=== PATIENT | male | born 1950 | race Caucasian/White ===

== ENCOUNTER 2023-06-14 14:17 | Outpatient (OUT) | payer MEDICARE, SELFPAY ==
--- NOTE | 2023-06-14 15:12 | CA_ITS ---
Patient: GIANFRANCO LEBLANC Exam Date: 06/14/2023 : 1950 Gender:M Ordering : ENOC DegrootDoroteo [facility] Admission #: [id number] Family : Order #: [id number] CLICK HERE TO VIEW EXAM ECHOCARDIOGRAM REPORT PROCEDURE: CA ECHO DOPPLER COMPLETE INDICATIONS: Dyspnea, smoker, hypertension, diabetes COMPARISON: None. DESCRIPTION: COMPLETE ECHOCARDIOGRAM Real-time transthoracic echocardiography with 2D, M-mode, spectral and color flow Doppler performed. QUALITY: Technical quality was good. LEFT VENTRICLE: Normal chamber size. Thickened septal wall. Normal systolic function. LV EF: Normal left ventricular ejection fraction, (>55%). DIASTOLIC: Normal diastolic function. ATRIAL SEPTUM: Visually appears intact. LEFT ATRIUM: Normal chamber size. RIGHT ATRIUM: Normal chamber size. RIGHT VENTRICLE: Normal chamber size. Normal right ventricular systolic function. TRICUSPID VALVE: Normal mobility and thickness. No stenosis with no regurgitation. MITRAL VALVE: Normal mobility and thickness. No evidence of mitral valve stenosis. There is no mitral annular calcification. No mitral regurgitation. AORTIC VALVE: Normal trileaflet appearance. No visible sclerosis. Normal leaflet mobility. No evidence of aortic valve stenosis. No aortic regurgitation. AORTIC ROOT: Normal diameter and appearance. PULMONIC VALVE: Normal thickness and mobility. No stenosis. Trivial regurgitation. PERICARDIUM: No pericardial effusion. IVC: Collapses with inspirations. IVC is normal in size. PLEURA: CONCLUSION: 1. Normal ventricular function. LVEF is 55 to 60%. 2. No significant valvular dysfunction. 3. No pericardial effusion. Adult Echocardiography Procedure Report Left Ventricle LVEDD (3.7 - 5.6 cm): 4.91 cm LVESD (2.2 - 4.0 cm): 3.13 cm LVIVS thickness (0.6 - 1.2 cm): 1.23 cm LVPW thickness (0.5 - 1.0 cm): 0.90 cm e': 0.10 m/s E - e': 4.69 LVOT Max Gradient: 2.41 mm[Hg] LVOT Area (cm2): 0.78 m/s Peak Velocity (LVOT): 0.78 m/s LVOT Diameter 2.14 cm Left Atrium LA Volume Index (2D A2C): 13.45 ml/m2 Left Atrium Systolic Dimension: 3.81 cm Mitral Valve MV E to A Ratio: 0.62 Mitral Valve A-Wave Peak Velocity: 0.73 m/s Mitral Valve E-Wave Peak Velocity: 0.46 m/s Right Ventricle Aorta AO Root Diam: 3.05 cm Ascending Ao Diam: 3.32 cm Aortic Valve AoV Area (Peak Gil): 2.34 cm2, 2.34 cm2 Peak Velocity(Antegrade Flow): 1.19 m/s Peak Gradient(Antegrade Flow): 5.64 mm[Hg] Tricuspid Valve Pulmonic Valve Peak Velocity: 1.02 m/s Peak Gradient: 4.61 mm[Hg], 3.75 mm[Hg] Right Atrium Right Atrium Systolic Pressure: 38.61 ml, 38.61 ml Dictated by: Lance Mei M.D. on 06/14/2023 at 17:17 Approved by: Lance Mei M.D. on 06/14/2023 at 17:19
== END 2023-06-14 14:18 | disposition home or self-care (01) ==
LOC: CARD 14:19
PROVIDERS: PCP Nurse Practitioner Family; Visit Provider Nurse Practitioner Family
DX: R06.09 Other forms of dyspnea (principal)
CPT/HCPCS: 93306

== ENCOUNTER 2023-07-06 15:05 | Outpatient (OUT) | payer MEDICARE, SELFPAY ==
[2023-07-06 15:38] LABS: Basophils Absolute Auto 0.1 10^3/uL (0.0-0.1); Basophils Percent Auto 0.8 % (0.2-2.0); Eosinophils Absolute Auto 0.1 10^3/uL (0.0-0.7); Hematocrit 43.4 % (42.0-54.0); Hemoglobin 15.3 g/dL (14.0-18.0); Immature Granulocytes Abs Auto 0.02 10^3/uL (0.00-0.03); Immature Granulocytes Pct Auto 0.3 % (0.0-0.5); Lymphocytes Absolute Auto 1.7 10^3/uL (1.2-3.8); Lymphocytes Percent Auto 25.7 % (20.5-60.0); Mean Corpuscular HGB Conc 35.3 g/dL (29.9-35.2); Mean Corpuscular Hemoglobin 33.7 pg (25.9-34.0); Mean Corpuscular Volume 95.6 fL (80.0-94.0); Mean Platelet Volume 8.5 fL (9.5-13.5); Monocytes Absolute Auto 0.6 10^3/uL (0.3-0.8); Monocytes Percent Auto 9.9 % (1.7-12.0); Neutrophils Percent Auto 61.3 % (43.0-75.0); Platelet Count 190 10^3/uL (150-450); Red Blood Count 4.54 10^6/uL (4.70-6.10); Red Cell Distribution Width 12.8 % (11.0-15.0); White Blood Count 6.5 10^3/uL (4.0-11.0)
[2023-07-06 15:54] LABS: Estimated Average Glucose 148 mg/dL; Glycohemoglobin A1C 6.8 % (4.5-6.2)
[2023-07-06 16:07] LABS: Alanine Aminotransferase 14 U/L (16-63); Albumin Level 3.7 g/dL (3.4-5.0); Alkaline Phosphatase 96 U/L (46-116); Anion Gap 9.6; Aspartate Amino Transferase 20 U/L (15-37); BUN Creatinine Ratio 6.8; Bilirubin Total 0.7 mg/dL (0.2-1.0); Calcium 8.7 mg/dL (8.5-10.1); Carbon Dioxide 31.4 mmol/L (21.0-32.0); Chloride 88 mmol/L (98-107); Cholesterol 106 mg/dL (<=200); Estimated GFR (African America >60 (>=60); Estimated GFR (Non-African Ame >60 (>=60); Free T3 2.33 pg/mL (2.18-3.98); Globulin 3.8 g/dL; Glucose 133 mg/dL (74-106); HDL Cholesterol 53 mg/dL (40-60); LDL Cholesterol Calculated 37.4 mg/dL; Sodium 125 mmol/L (136-145); Thyroid Stimulating Hormone 2.699 uIU/mL (0.358-3.740); Total Protein 7.5 g/dL (6.4-8.2); Triglycerides 78 mg/dL (<=150); Uric Acid 5.1 mg/dL (3.5-7.2); VLDL CHOLESTEROL 15.6 mg/dL
[2023-07-06 16:08] LABS: Prostate Specific Antigen Scrn 9.84 ng/mL (<=4.00)
[2023-07-07 11:12] LABS: Insulin 11.2 uIU/mL (2.6-24.9)
== END 2023-07-06 15:06 | disposition home or self-care (01) ==
LOC: LAB 15:08
PROVIDERS: PCP Nurse Practitioner Family; Visit Provider Nurse Practitioner Family
DX: Z79.899 Other long term (current) drug therapy (principal); Z72.4 Inappropriate diet and eating habits; E11.9 Type 2 diabetes mellitus without complications; E78.5 Hyperlipidemia, unspecified; I10 Essential (primary) hypertension; I50.30 Unspecified diastolic (congestive) heart failure; Z12.5 Encounter for screening for malignant neoplasm of prostate; M25.50 Pain in unspecified joint; R53.83 Other fatigue; I11.0 Hypertensive heart disease with heart failure
CPT/HCPCS: 36415; 80053; 80061; 83036; 83525; 83880; 84436; 84443; 84481; 84550; 85025; G0103

== ENCOUNTER 2023-07-12 14:31 | Outpatient (OUT) | payer MEDICARE, SELFPAY ==
[2023-07-12 15:53] LABS: Alanine Aminotransferase 17 U/L (16-63); Albumin Level 3.5 g/dL (3.4-5.0); Alkaline Phosphatase 89 U/L (46-116); Anion Gap 12.2; Aspartate Amino Transferase 14 U/L (15-37); BUN Creatinine Ratio 6.9; Bilirubin Total 0.5 mg/dL (0.2-1.0); Calcium 8.5 mg/dL (8.5-10.1); Carbon Dioxide 29.3 mmol/L (21.0-32.0); Chloride 98 mmol/L (98-107); Estimated GFR (African America >60 (>=60); Estimated GFR (Non-African Ame >60 (>=60); Globulin 3.5 g/dL; Glucose 130 mg/dL (74-106); Potassium 4.5 mmol/L (3.5-5.1); Sodium 135 mmol/L (136-145)
== END 2023-07-12 14:32 | disposition home or self-care (01) ==
LOC: LAB 14:33
PROVIDERS: PCP Nurse Practitioner Family; Visit Provider Nurse Practitioner Family
DX: E87.1 Hypo-osmolality and hyponatremia (principal)
CPT/HCPCS: 36415; 80053

== ENCOUNTER 2023-07-27 09:37 | Outpatient (OUT) | payer MEDICARE, SELFPAY | END 2023-07-27 09:38 | disposition home or self-care (01) | PROVIDERS: PCP Nurse Practitioner Family; Visit Provider Nurse Practitioner Family | DX: R06.02 Shortness of breath (principal); I10 Essential (primary) hypertension | CPT/HCPCS: 78452; A9500 ==

== ENCOUNTER 2023-07-27 11:53 | Emergency (ER) | payer MEDICARE, SELFPAY ==
[2023-07-27 11:58] VITALS: BP 167/86; PULSE 97; RESP 20; TEMP 36.6; O2SAT 95; BMI 32.9
--- NOTE | 2023-07-27 12:06 | XR_ITS ---
[address] [address] Patient Name: GIANFRANCO LEBLANC MRN: [id number] date: 1950 Sex: M Assigned Patient Location: ER Current Patient Location: ER Accession/Order Number: [id number] Exam Date: 07/27/2023 12:20 Report Date: 07/27/2023 12:48 At the request of: LUPILLO KELLY Procedure: XR hip RT min 2V PROCEDURE: XR hip RT min 2V COMPARISON: None. HISTORY: pain FINDINGS: BONES:No acute fracture or dislocation. Moderate osteoarthropathy with joint space narrowing and marginal osteophyte formation. Sclerosis of the acetabulum. SOFT TISSUES:Negative. No visible soft tissue swelling. EFFUSION:None visible. OTHER: Negative. XR/XR hip RT min 2V IMPRESSION: Moderate osteoarthritis Electronically authenticated by: NADJA INMAN Date: 07/27/2023 12:48
--- NOTE | 2023-07-27 13:21 | ED_ITS ---
HPI - Extremity Problem General Chief complaint: Extremity Problem, Nontraumatic Stated complaint: LOWER EXTREMITY PAIN Time Seen by Provider: 07/27/23 12:07 Source: patient Mode of arrival: Wheelchair Limitations: no limitations History of Present Illness HPI Narrative: Patient presenting to us with a right hip pain that been going on at least for few weeks he had mentioned that there was no history of fall or trauma and the pain does not radiate down his legs only limited to his right hip sometimes radiate to the groin area The patient mentioned that he have a history of sciatica before but it is different than this pain No history of weakness numbness tingling or any other complaints Related Data Previous Rx's Medication Instructions Recorded diclofenac sodium 50 mg 50 mg PO Q12H PRN pain 5 days #10 07/27/23 tablet,delayed release tabs Allergies Allergy/AdvReac Type Severity Reaction Status Date / Time Penicillins Allergy Severe Verified 07/27/23 12:04 Review of Systems ROS Status of ROS 10 or more systems reviewed and unremark able except as noted in history and below Exam Narrative Exam Narrative: Nurses notes and vital signs reviewed and patient is not hypoxic. General: Well-appearing and in no apparent distress. Skin: Warm, dry, no pallor noted. No rash. Head: Normocephalic, atraumatic. Neck: Supple, non-tender. Eye: Pupils are equal, round and EOMI. No scleral icterus. Ears, Nose, Mouth, and Throat: TM are clear, no nasal mucosal hypertrophy. Oral mucosa is moist, no posterior oropharynx erythema, uvula is mid-line Cardiovascular: Regular Rate and Rhythm without murmur, gallop or rub. Respiratory: No accessory muscle use or respiratory distress. Lungs are clear to auscultation, no wheezing, rales or rhonchi Chest Wall: no tenderness Back: No midline thoracic or lumbar vertebral tenderness. No CVA tenderness Musculoskeletal: normal ROM, no calf or popliteal tenderness, no lower extremity edema/swelling there is mild tenderness upon palpation of the right lateral aspect of the right hip GI: Abdomen is soft, non-distended. Normal bowel sounds. No masses appreciated. No tenderness to palpation. No rebound, guarding, or rigidity noted. Neurological: A&O x4. No cranial nerve dysfunction observed. No truncal ataxia. Moves all extremities. Sensation intact. Psychiatric: Cooperative and interactive. Normal mood and affect. Constitutional Vital Signs, click to edit/add: Last Vital Signs Temp 97.8 F 07/27/23 11:58 Pulse 97 H 07/27/23 11:58 Resp 20 07/27/23 11:58 BP 167/86 H 07/27/23 11:58 Pulse Ox 95 07/27/23 11:58 O2 Del Method Room Air 07/27/23 11:58 Course Vital Signs Vital signs: Vital Signs Temperature 97.8 F 07/27/23 11:58 Pulse Rate 97 H 07/27/23 11:58 Respiratory Rate 20 07/27/23 11:58 Blood Pressure 167/86 H 07/27/23 11:58 Pulse Oximetry 95 07/27/23 11:58 Oxygen Delivery Method Room Air 07/27/23 11:58 Temperature 97.8 F 07/27/23 11:58 Pulse Rate 97 H 07/27/23 11:58 Respiratory Rate 20 07/27/23 11:58 Blood Pressure 167/86 H 07/27/23 11:58 Pulse Oximetry 95 07/27/23 11:58 Oxygen Delivery Method Room Air 07/27/23 11:58 MDM - Extremity (Nontraumatic) MDM Narrative Medical decision making narrative: The patient was treated in the ER with Toradol discharged home with 5 days of Voltaren and referred to orthopedic in case needed The patient is to follow up with primary care physician in next 2-3 days or to return to the emergency department should any of the signs or symptoms worsen or new symptoms develop. The patient agrees with the following Diagnosis and Treatment plan and the patient will be discharged home. Discharge Plan Discharge Chief Complaint: Extremity Problem, Nontraumatic Clinical Impression: Hip osteoarthritis Patient Disposition: Home, Self-Care Time of Disposition Decision: 13:21 Condition: Good Mode of Transportation: Private Vehicle Prescriptions / Home Meds: New diclofenac sodium 50 mg tablet,delayed release (DR/EC) 50 mg PO Q12H PRN (Reason: pain) 5 Days Qty: 10 0RF Instructions: Osteoarthritis (DC) Stand Alone Forms: Portal Instructions Referrals: ENOC JUDGE [Primary Care Provider] - 1 week Souleymane Garcia MD [Physician] - 1 week
[2023-07-27] MEDS: KETOROLAC TROMETHAMINE 30 MG/ML VIAL 15 MG IM (13:28)
== END 2023-07-27 13:36 | disposition home or self-care (01) ==
PROVIDERS: Emergency Provider Emergency Medicine; PCP Nurse Practitioner Family
DX: R06.02 Shortness of breath (principal); I10 Essential (primary) hypertension; M16.11 Unilateral primary osteoarthritis, right hip
CPT/HCPCS: 73502; 78452; 96372; 99284; A9500

== ENCOUNTER 2023-08-03 12:55 | Outpatient (RCR) | payer MEDICARE, SELFPAY | END 2023-08-04 09:16 | disposition home or self-care (01) | LOC: PT 12:55 | PROVIDERS: PCP Nurse Practitioner Family; Visit Provider Nurse Practitioner Family | DX: M25.551 Pain in right hip (principal) | CPT/HCPCS: 97162 ==

== ENCOUNTER 2023-10-04 13:02 | Outpatient (RCR) | payer MEDICARE, SELFPAY | END 2023-10-28 12:57 | disposition home or self-care (01) | LOC: PT 13:02 | PROVIDERS: PCP Nurse Practitioner Family; Visit Provider Nurse Practitioner Family | DX: M25.551 Pain in right hip (principal) | CPT/HCPCS: 97010; 97110; 97113; 97140; 97162; G0283 ==

== ENCOUNTER 2023-10-04 15:14 | Outpatient (OUT) | payer MEDICARE, SELFPAY ==
--- OUTSIDE RECORDS SUMMARY | 2023-10-04 15:39 | XMS_ITS | CCD ---
Author Name Unknown Address [address] [place] [address] Organization [facility] Care Team Providers Care Director Payment Name Role Phone Raul Sun MD Primary Care Provider DAINA JUDGE Primary Care Physician [phone] MD Kashif Sanches Attending Provider AMMY Judge Primary Care Provider Daina Judge Primary Care Unavailable Kashif Sanches Attending Unavailable Kashif Sanches Admitting Unavailable SELENA ., DR RHOADES Admitting Unavailable SANCHES ., DR RHOADES Attending Unavailable ALFIE DAINA Primary Care Unavailable SANCHES ., DR RHOADES Consulting Unavailable DAINA JUDGE Admitting Unavailable DAINA JUDGE Attending Unavailable ALFIE, DAINA Primary Care Unavailable ALFIE DAINA Consulting Unavailable ALFIE, DAINA Admitting Unavailable ALFIE, DAINA Attending Unavailable ALFIE, DAINA Primary Care Unavailable DAINA JUDGE Consulting Unavailable Kashif SANCHES Attending Unavailable Kashif SANCHES Attending Unavailable DAINA JUDGE S Referring Unavailable Kashif SANCHES Attending Unavailable Kashif SANCHES Admitting Unavailable Raul Sun MD Primary Care Provider RAUL SUN Primary Care Unavailable KENYON ANGEL Attending Unavailable MARQUIS WEAVER Attending Unavaila ble RAUL SUN Primary Care Unavailable RADHA GRAY Referring Unavailable RADHA GRAY Attending Unavailable RAUL SUN Primary Care Unavailable MONTSERRAT HA Attending Unavailable FABRIZIO MACIAS Attending Unavailable Allergies Allergy Classification Reported Allergen(s) Allergy Type Date of Onset Reaction(s) Facility (8 sources) Penicillins; Translations: [PENICILLINS] Drug Allergy 7 Rash [facility] (5 sources) Penicillin; Translations: [penicillin] Drug Allergy 2 Unknown skin reaction [facility] (1 source) Penicillins Drug allergy (disorder) 2 [facility] Medications Current Medications Medication Drug Class(es) Dates Sig (Normalized) Sig (Original) benoxinate hydrochloride 4 mg/ml / fluorescein sodium 2.5 mg/ml ophthalmic solution (4 sources) Diagnostic Dye Start: 06-06-2023 End: 06-07-2023 fluorescein-benoxi irma 0.25-0.4 % 1 Drop (FLURESS) Start: 03-02-2023 End: 03-03-2023 fluorescein-benoxinate 0.25- 0.4 % 1 Drop (FLURESS) Start: 03-01-2022 End: 03-02-2022 fluorescein-benoxinate 0.25- 0.4 % 1 Drop (FLURESS) Start: 02-17-2022 End: 02-18-2022 fluorescein-benoxinate 0.25- 0.4 % 1 Drop (FLURESS) hydroCHLOROthiazide 12.5 mg / losartan potassium 50 mg oral tablet (9 sources) Thiazide Diuretic, Angiotensin 2 Receptor Rosie Start: 06-28-2022 hydrochlorothiazide-losartan 12.5 mg-50 mg Tab Refill(s) 0 Start Date: 06/28/22 Status: Ordered Start: 11-02-2018 losartan-hydro chlorothiazide (HYZAAR) 50-12.5 mg per tablet loratadine 10 mg oral tablet (9 sources) Start: 06-28-2022 take 3 tablets by mouth once daily loratadine 10 mg Tab Oral route, 3 Refill(s), 1 tablet by mouth once a day, Refills(s) 0 Start Date: 06/28/22 Status: Ordered take 1 tablet by mouth once jayde y loratadine (CLARITIN) 10 mg tablet Take 10 mg by mouth once daily. 0 Active Comment on above: Take 10 mg by mouth once daily. phenylephrine hydrochloride 25 mg/ml ophthalmic solution (3 sources) alpha-1 Adrenergic Agonist Start: 06-06-2023 End: 06-07-2023 PHENYLephrine 2.5 % 1 Drop (AK-DILATE, AINSLEY-SYNEPHRINE) Start: 03-02-2023 End: 03-03-2023 PHENYLephrine 2.5 % 1 Drop ( AK-DILATE, AINSLEY-SYNEPHRINE) Start: 03-01-2022 End: 03-02-2022 PHENYLephrine 2.5 % 1 Drop ( AK-DILATE, AINSLEY-SYNEPHRINE) traZODone hydrochloride 150 mg oral tablet (9 sources) Serotonin Reuptake Inhibitor Start: 06-28-2022 traZODONE 150 mg Tab Refills(s) 0 Start Date: 06/28/22 Status: Ordered Comment on above: Take 150 mg by mouth daily at bedtime. tropicamide 10 mg/ml ophthalmic solution (4 sources) Anticholinergic Start: 06-06-2023 End: 06-07-2023 tropicamide 1 % 1 Drop (MYDRIACYL) Start: 03-02-2023 End: 03-03-2023 tropicamide 1 % 1 Drop (MYDR IACYL) Start: 03-01-2022 End: 03-02-2022 tropicamide 1 % 1 Drop (MYDR IACYL) Start: 02-17-2022 End: 02-18-2022 tropicamide 1 % 1 Drop (MYDR IACYL) Completed/Discontinued Medications Medication Drug Class(es) Dates Sig (Normalized) Sig (Original) [id number] 200 actuat albuterol 0.09 mg/actuat metered dose inhaler (1 source) beta2-Adrenergic Agonist Start: 04-17-2023 albuterol HFA (PROVENTIL HFA, VENTOLIN HFA) 90 mcg/actuation inhaler amLODIPine 5 mg oral tablet (9 sources) Dihydropyridine Calcium Channel Rosie Start: 01-14-2021 take 1 tablet by mouth once daily amLODIPine (NORVASC) 5 mg tablet Take 5 mg by mouth once daily. 0 01/14/2021 Active Comment on above: Take 5 mg by mouth o nce daily. atenolol 50 mg oral tablet (9 sources) beta-Adrenergic Rosie Start: 11-02-2018 atenolol (TENORMIN) 50 mg tablet atorvastatin 10 mg oral tablet (9 sources) HMG-CoA Reductase Inhibitor Start: 02-01-2022 atorvastatin (LIPITOR) 10 mg tablet busPIRone hydrochloride 5 mg oral tablet (9 sources) Start: 11-02-2018 busPIRone (BUSPAR) 5 mg tablet cholecalciferol 0.05 mg oral capsule (6 sources) Vitamin D Cholecalciferol, Vitamin D3, 50 mcg (2,000 unit) cap Take by mouth. 0 Active Cholecalciferol, Vitamin D3, (VITAMIN D-3) 2,000 unit cap Take by mouth. 0 Active Comment on above: Take by mouth. doxycycline hyclate 50 mg oral capsule (6 sources) Tetracycline-class Drug Start: 2 take 1 capsule by mouth once daily doxycycline (VIBRAMYCIN) 50 mg capsule Take 50 mg by mouth once daily. 0 01/25/2022 Active Comment on above: Take 50 mg by mouth once daily. FLUoxetine 40 mg oral capsule (6 sources) Serotonin Reuptake Inhibitor take 1 capsule by mouth once daily FLUoxetine HCl (PROZAC) 40 mg capsule Take 40 mg by mouth once daily. 0 Active Comment on above: Take 40 mg by mouth once daily. furosemide 20 mg oral tablet (9 sources) Loop Diuretic Start: 9 furosemide (LASIX) 20 mg tablet metFORMIN hydrochloride 500 mg oral tablet (9 sources) Biguanide Start: 9 metFORMIN (GLUCOPHAGE) 500 mg tablet Minocycline (6 sources) Tetracycline-class Drug MINOCYCLINE HCL (MINOCYCLINE ORAL) Take by mouth. 0 Active Comment on above: Take by mouth. naltrexone hydrochloride 50 mg oral tablet (6 sources) Opioid Antagonist Start: 9 naltrexone (TREXAN) 50 mg tablet Problems Active Problems Problem Classification Problem Date Documented Date Episodic/Chronic Anxiety disorders (3 sources) Anxiety disorder 08-08-2019 Chronic Cataract (20 sources) Nuclear senile cataract; Translations: [Age-related nuclear cataract, right eye] Onset: 11-10-2016 Chronic Diabetes mellitus without complication (18 sources) Diabetes mellitus type 2 without retinopathy; Translations: [Type 2 diabetes mellitus without complications] Onset: 02-11-2021 Chronic Disorders of lipid metabolism (1 source) Hyperlipidemia, unspecified; Translations: [HYPERLIPIDEMIA UNSPECIFIED] Onset: 05-24-2022 Chronic Essential hypertension (3 sources) Hypertensive disorder 08-08-2019 Chronic Hyperplasia of prostate (5 sources) Benign prostatic hypertrophy with outflow obstruction; Translations: [Benign prostatic hyperplasia with lower urinary tract symptoms] Onset: 06-28-2022 Chronic Mood disorders (3 sources) Depressive disorder 08-08-2019 Chronic Other eye disorders (6 sources) Chorioretinal scar of left eye; Translations: [Unspecified chorioretinal scars, left eye] Onset: 11-10-2016 11-10-2016 Chronic Other eye disorders (1 source) History of gzkamcy-ioaxbcsh-coz net (YAG) laser capsulotomy of lens; Translations: [Cataract extraction status, left eye] 06-06-2023 Episodic Other lower respiratory disease (2 sources) Other forms of dyspnea; Translations: [Other forms of dyspnea] Onset: 09-21-2023 Episodic Other nervous system disorders (10 sources) H/O: retinal detachment; Translations: [Personal history of other diseases of the nervous system and sense organs] Onset: 11-10-2016 Episodic Other screening for suspected conditions (not mental disorders or infectious disease) (11 sources) Raised prostate specific antigen; Translations: [Elevated prostate specific antigen [PSA]] Onset: 05-24-2022 Episodic Residual codes; unclassified (2 sources) Localized edema; Translations: [Localized edema] Onset: 09-21-2023 Episodic Retinal detachments; defects; vascular occlusion; and retinopathy (10 sources) Epiretinal membrane of left eye; Translations: [Puckering of macula, left eye] Onset: 11-10-2016 Chronic Unclassified (1 source) OPENED IN ERROR 03-03-2023 Past or Other Problems Problem Classification Problem Date Documented Date Episodic/Chronic Diabetes mellitus without complication (1 source) Other abnormal glucose; Translations: [OTHER ABNORMAL GLUCOSE] Onset: 05-24-2022 Episodic Inflammation; infection of eye (except that caused by tuberculosis or sexually transmitteddisease) (6 sources) Blepharitis of upper and lower eyelids of bilateral eyes; Translations: [Unspecified blepharitis right eye, upper and lower eyelids] Onset: 11-10-2016 11-10-2016 Episodic Other eye disorders (5 sources) Excess skin of eyelid; Translations: [Dermatochalasis of right upper eyelid] Onset: 11-10-2016 11-10-2016 Episodic Other eye disorders (2 sources) Dermatochalasis of right upper eyelid; Translations: [Dermatochalasis] Onset: 11-10-2016 11-10-2016 Episodic Results Test Name Value Interpretation Reference Range Facility 37on 09-21-2023 37 Stop amlodipine- and start spironlactone- 1 tab daily. Have blood work drawn about 1 week after starting this new med to check kidney function and electrolytes. Call office for any concerns Normal [facility] Office Visiton 09-21-2023 Follow-up visit [id number] Gianfranco Martin 1950 M Date Provider Department Center 09/21/2023 120-MONTSERRAT HA [facility] Family History Problem Relation Age of Onset Coronary artery disease Father Stroke Father Family Status - Relation Status Age at Father Level of Service:42815 ME OFFICE/OUTPATIENT ESTABLISHED MOD MDM 30 MIN Normal [facility] Office Visiton 08-26-2023 Follow-up visit [id number] Gianfranco Martin 1950 M Date Provider Department Center 08/26/2023 3848-FABRIZIO MACIAS Hos Family History Problem Relation Age of Onset Coronary artery disease Father Stroke Father Family Status - Relation Status Age at Father Level of Service:18821 ME OFFICE/OUTPATIENT NEW LOW MDM 30 MINUTES Normal [facility] Patient Letter FTon 2022 Patient Letter [facility] – [place] November 30, 2022 GIANFRANCO MARTIN [address] [place] [address] GIANFRANCO MARTIN 1950 Dear Gianfranco Martin, [facility] has been trying to reach you concerning the recent results of your PSA level done 10/26/22 9.32. Your PSA level is elevated and Dr. Sanches is recommending you have a Prostate biopsy done under anesthesia to rule out prostate cancer. A normal PSA level is 0- 4. The office has left several messages with no response from you concerning this matter. Please call the office with in 2 week of receipt of this letter to get this outpatient procedure scheduled. Sincerely, Kashif Sanches M.D., F.A.C.S. [facility] [address] [place], [place] [id number] , OPTION #3 SENT REGULAR/CERTIFIED MAIL [facility] Coding Summary.on 10-27-2022 Coding Summary. CD:[id number] Gh 0bWw+PGhlYWQ+VE3CEDGnS 14kdEZobN3lA3WMVJrIQlf oTUKGUQxFIqDjdwJlUM3jc XNjZXJu IC8+WZ3tQFGwYvdazYIon2 T2oVM0H75gib1oZPrcsLA6 VANkPbCghlnja9zxbWu1VJ cuNmluOyBt ZHSlpW75HSB6oF83Et87iJ DqtLGzd4glwLz0BaYuNBMk FTP2lYvqVVnzg3QzONJuP7 8jmIMso9T2 CZRhsUjgdLOpWvMmfAZ7bU 6hUObikpmpx3laudkaZdm6 kv37eGXxs4K3iFB1B8Mkpq G4GDQhbJKu QxkjdFBIgO7hntfyj7iiay evMgChTPAyQZh9QOt9URTs dOsdTxCkNK73YZN6EHIygs AjU4JcYFJq eEcmDaE6j0V2Da7YY2OTMy umS3XNOHRYVNxozEA+PC90 jf23G9KsIteoUxp3EXXoRR X5fAY8lM2e GKPmHImqq5W9hQC5J5Wtno Uqoc4mv9hfKLVdWYxeX07d qCTxa0M5GSVmaUG3RGZwwN qzYpWgjO69 Oyc+KUVckOlkg1AoUyadj6 uqu9acnTw9RmayDLOttiFi vMnkROT5p8LgLi1tYKRphC N6hEW1kS8u WeMhFrL1OMibF355EcMmkV XyJcnqI93fW5XnsLH+PHRy Zrz7VEEhoOenWT2qH8DvGT RpbmctbGVm dGifHS0rTKZxkejiTANjjY 9tBQMkX5a3TkHuMsJ3IVdg A7ShAOLwdzyxYx09jB5eLw KrLzI2QGgm B6JhujK6GYTyiUOnGQnvOO O8Z03zi5B0KHGaJYXgPNZ1 qWP0vB2mfOhjdtxqgEAxuD sgdmVydGlj WSokXMdeM424WCQnuSwqBd NvZGluZyBEYXRlOiAgMDMv MDgvMjAyMzwvdGQ+PHRkIH L6jYinCKWt xLHaYHsqWw1ykVsnmDkmOK 3cTLVukrssKDZwxS5aTJUj xSDuyEsmDS7qJNAjnoqaa9 47PiNdMDM0 GGPgwEYcZ0UzbM4mSvGaTJ XtRJXjE6JbdRLqYAzaF201 RLopCvY9NMCygtUdG7VdYA FsaWduOiB0 y7L0Fg1Sa7NgnxwtY5SqeS DmNqQoJskePXt6A2JfZzlx dHI+MB16DYOhFB05BLh2MJ C1jDnwXLkv HRTbS2GioE1pYxUnYLUfAH RkOyc+PHRhYmxlIHdpZHRo JFsbDCZuReUtlTxgAU6kVp 9yZGVyLWNv tVahmJWfWqRrq3zdSKDhMW nrIQ8fiOojA2UnxRU0RUEo o0e1Aq47X01sT8BxyKX+PG PxcGR1gZV5 yV6iXtZiLxB0MLdqD899Oi DhzBDcZvbcn0nrb1tezMz0 IsH6VRPscpDfkSbgFQL2q7 DtBr81J94o IHdpZHRoPSIxNSUiIHZhbG ibpe5toR7lEs2+PGNvbCB3 oSX7nP2hUlDvLmK0IQafO1 49InRvcCIv Ylgnd6pys4iluAh5FoTrRQ MoqjZpgWyuHIB9w4NhTs91 O0YzxZyzn4FnTsw7rt16hC Tqw9R6uKS9 S9KfTHEjcpusgUKqxVisTE 7aIYCkhodeTBYxiS2eFGPa F2u0JhNjRiN5ZLpuN7Wbwq N9MIDiiLXe RMEyoSEIhA0mhwodo8yoao vtMcKnIXFmPPv3YEi0UBXz qYtwObIyGJH8RlR5GHI7sF PzzR3qlDet uvdclI5sLyi+EGD8iOVcnA FJFB3fHepuxRV+PHRkIHN0 kPavPKmcUUCywM0lPVNiZ7 e6EiEqOgU7 VKrbC7SoreB4BNIrnWLuNU YfeWLQuB3ltpbgn8giyeqc ZlOpYCWuHSb8OOx0BRYuhF duOiBsZWZ0 PzW0CJN9eZDnsN1mjFefwg bmkJ9zUwj+QmlydGggRGF0 CFj7T4YsCpn5OUMsyTyaTT 0ncGFkZGlu Cj5ngCemtIqfDM3dTXKcow ujd502BiNnp4dxIJSsvLTh RCatTLE5H13to1N2WVRfIT KxITX9yBJ4 wT9hoBtrlwanlFEznNtyzl ZodAlnTUipJZmqZ592SZNo nUtwKsNnXNx1O5VtNss8BH UrwLqjXD2s aLObXCmcUw2kwYizfBypQU 2sGQZtvuzdv626GmFtt4nd EPVbnWNxYGntWSR5V20es8 W2HRTtGEHq HUZ1sEN2vM1dnXxvtujgqT VmdDsgdmVydGljYWwtYWxp J185UVKteLauDzIazUc8M8 AuXxk1TJCw bJbjKI9rtMTpBStkAl6xqV uszSidZQ2xPTHhvwsad136 TyPkp9kuVLBqvXIcRGkuUN I2C92ka6X7 TTZyARTvPUJ1dLW4eA9knL lnbjogbGVmdDsgdmVydGlj WFdyOYamP407VJIumPtjGn BhdGllbnQg CEfbRMf5O2UbCekseOR+PC 25RNZzTS40xKEumUKkz3ro tEs9OcZkACOdDXG7uDyrCV wef2VhVFPi O35axAQav6Z1JYDnvWurpD OuUzSmaLH9tT7qNTnhgopc b9wwjmoiRbwgc2zsgg75lP 25Y64dLFsy ZHRoPSIzMCUiIHZhbGlnbj 7nnX5kDw8+JTIeuEP0xUD7 yG9xEACaQnH1XInyF676Lw RvcCIvPjxj g0qji0wtsVu8SyJ7VOWjrg TdcUcqCSJ3z6GdAr03A65e IHdpZHRoPSIyMCUiIHZhbG dpem5hdF6c Ii8+SYNwfVE2aEU0zY3nCk OtIlF8JGnpJ634NqSinISx QycjV54pV2XeeAV+PHRyPj x7SQQqzSjc AT0dnKHxECfhKp6tSSE6Nv FzLfIpHGfrU4JuBFWrcwpr dbbgtQW6HCKuPBZnwL33Fb 9udDogMTBw wTGZtQ8uxcvqq2sccfjcQb VnKRAdOAs7CJv5MUSqxQul DkXwXZN3OiP7CRL5aMRbeM 1hbGlnbjog kI5lS8HvGXGgyrazQg96kF 1yGjCeNwM9RXhoXbf+UFVM FADBJpjuMkfYH3gRRcabqA Q+PHRkIHN0 rMqbKZodZKMsjY5sLXKzK8 w0IpLrLhC8MPykN2LiYBHp batuRw53pF3vLiHuYwI5YX xsC6EaufS2 MNAhdUAyPUxlKHV0E56zp2 G7GREwFEWtZOA2cPZ5tA6m bGlnbjogbGVmdDsgdmVydG ljYWwtYWxp B354WTKvpEjvLsC2ItE1Ce D9JSX0U7YsMsu5GQTptNhf CU8dpTJqIYfuDk1hxDzrcT ipWE8eQSPd lfhvOVJxlA3xBWMpkMUdmN zfXH2nHZCpvzdrl998YaOi ZHL5EBGevDMmH7OxbU2eAd AjMDAwMDAw J5SdyNKcJHkrK433PJitOl L0EQNkphFmO5JiYCBatZcd SpS2s4A0Eo11GuZJYVYwez wvdGQ+PHRk CZO4nUnqSKilQWObcN1eJT JuY7m2MbKhBrP8PZxhN2Kt YMCxhrrgFq79mC2kAwRfVy C9PElnS8Xn gcY5ZCAleHCmHPxqZZP8H2 0wo6U6CAVgGVSjMTO7vZB8 cC8epBrbebjceLVivYxpnl VydGljYWwt LRirN900FHIkrJiqGi3myA S6T6VtFzr4UQUmjFacZH1o mDBrEGroAs9jiPjwsLfqAV 4wNTBpbjtw QTNrqM8xKXEkzDEljMtnZV 3gLTJmpwira683XtGvZWR7 AASwlKLzZ1PylA9hTbUqHC WxURYaS6Us cSQqFWqgM934BQwqBsC1XG OjqzBtV6DtTRKgyCsiHjL6 j6B2Fr0USHItPHUorGVhBq L5C8TtMwca dHI+KK68OPViCK05bDQakP Qop3qekTr5VxMdXWKbCBB8 pUlaBEtcx3YbLJSvZ75qdL Lwg9I8KSAp aLzzbJErUuWrtPI0rZ0cYW lptlbgn8qmuxbfCxjwk1uk lh73wJ34I78aNQprECTcLC IzMCUiIHZh eAdpxs8wnK7rJr3+PGNvbC X6vWV7wA0mFeDuDtO9LDgm C061FxBqvVOhSjgdj7umc9 okeTg0QxXf JTJihfFjfXppZKZ1x4EaAw 47D16fEZynYWVgBFEpDFSe KVFnbPtelm9iaB7aPq6+PC 3ob0rkye49 yK42vIT+AJIaGFB9jQcuSD vrAEWkeM0nBTneQtG2HPGw JkQdeJ86fXCjQJkcSj3kdC kdvDjlNI2a ICUzfcotn484EoSvu4bbZD DueLMfQAdfGXW7T35cl3T4 IUUkXGQqOWO0kLU5hQ3ydY lnbjogbGVm dDsgdmVydGljYWwtYWxpZ2 46QEExnShsBgRciGSrV6qv ulBHHD6mEurdsGC+PHRkIH F3qGgmBHdr THMmfX5sZLOaB3p1FuIbSq M9QPfmR1SxraG1NGIziZKd HFZupLVRhU1jtzibi5pcog ogIzAwMDAw TIm1FYz2EEUqoUxjEeXjYG X3NaJ4TYZ7lCDecV0gsCke rbuzcI2kAhc+RklOOjwvdG Q+PHRkIHN0 hNyeJHtmNCGbpS2tMCXgL4 i8WxElOkZ7PEqvS2CxusD2 IIEzaSLyIAYwqPJWfA8tjy lnc1dcixdn TgCqIPTtQUs1SZi2LFJgnI vuYtGrALB4XnC4MDU3fSVy nS3giKbbxgfowL0pJia+TV JOOjwvdGQ+ AECiJXJ2yEoyNFrhPOHzcD 9gEPZsS4r9KpHcByF5UQkm A4LgpnC1FLMrrGHtVKTujB NQmG6tyicy e4tohzwbJpOjBUAwZAq0JZ k0YICvrEqnQcXtJQM3JqF2 PKN1jCPddZ2hbUpyiwbezA 9wOyc+UGF5 NVF6LX38AR46Y4FwNeephT FibGU+PHRhYmxlIHdpZHRo QRogTKVuCoFbqBnyQO3aZv 9yZGVyLWNv bGxh (more content not included)... Normal [facility] Lab Reportson 10-27-2022 Lab Reports [id number]:[id number] Normal [facility] Ambulatory Visit Summaryon 0 10-15-2022 Ambulatory Visit Summary GIANFRANCO MARTIN :1950 Visit Date:10/15/2022 Ambulatory Visit Instructions Your Diagnosis Elevated PSA Benign prostatic hyperplasia (BPH) with post-void dribbling Tests Performed Urnls Dip Stick Auto w/o Microscopy POC 86393 Your Care Team Attending Physician - SELENA LEONG, Kashif Reis Primary Care Physician - DAINA JUDGE CNP This Is Your Medications List Contact prescribing physician if questions or concerns amlodipine (amLODIPine 5 mg Tab) atenolol (atenolol 50 mg Tab) atorvastatin (atorvastatin 10 mg Tab) busPIRone (busPIRone 5 mg Tab) furosemide (furosemide 20 mg Tab) hydrochlorothiazide-lo sartan (hydrochlorothiazide-l osartan 12.5 mg-50 mg Tab) loratadine (loratadine 10 mg Tab) metformin (metformin 500 mg oral tablet) trazodone (traZODONE 150 mg Tab) Procedures Performed Transrectal biopsy of prostate using ultrasound (US) guidance (2019), Eye implant, Repair of incisional hernia. Discharge Vitals Heart Rate (Peripheral) 86 Blood Pressure 128/79 Height 176 cm Height 69 in Weight 98 kg Weight 215.6 lb BMI 31.64 What to do next You Need to Schedule the Following Appointments Follow Up with SELENA LEONG, STEFANI Seo When: Where: [address] [place] [address]- Medications What When Instructions Unchanged amlodipine (amLODIPine 5 mg Tab) Contact prescribing physician if questions or concerns Unchanged atenolol (atenolol 50 mg Tab) Contact prescribing physician if questions or concerns Unchanged atorvastatin (atorvastatin 10 mg Tab) Contact prescribing physician if questions or concerns Unchanged busPIRone (busPIRone 5 mg Tab) Contact prescribing physician if questions or concerns Unchanged furosemide (furosemide 20 mg Tab) Contact prescribing physician if questions or concerns Unchanged hydrochlorothiazide-lo sartan (hydrochlorothiazide-l osartan 12.5 mg-50 mg Tab) Contact prescribing physician if questions or concerns Unchanged loratadine (loratadine 10 mg Tab) Oral route, 3 Refill(s), 1 tablet by mouth once a day Contact prescribing physician if questions or concerns Unchanged metformin (metformin 500 mg oral tablet) Contact prescribing physician if questions or concerns Unchanged trazodone (traZODONE 150 mg Tab) Contact prescribing physician if questions or concerns Test Results Urnls Dip Stick Auto w/o Microscopy POC 55077 (10/15/2022) Bilirubin Urine Dipstick - Negative Blood Urine Dipstick - Negative Glucose Urine Dipstick - Negative Ketones Urine Dipstick - Negative Leukocytes Urine Dipstick - Negative Nitrite Urine Dipstick - Negative Protein Urine Dipstick - Negative Specific [place] Urine Dipstick - 1.010 Urine Appearance Urine Dipstick - Clear Urine Color Urine Dipstick - Yellow Urobilinogen Urine Dipstick - Normal 0.2-1 EU/dl pH Urine Dipstick - 5.5 Allergies penicillin (Unknown skin reaction) Problems Ongoing - Any problem that you are currently receiving treatment for. Anxiety disorder Benign prostatic hyperplasia (BPH) with post-void dribbling Depression Diabetes Elevated PSA Hypertension Education Materials Prostate Cancer Screening The prostate is a walnut-sized gland that is located below the bladder and in front of the rectum in males. The function of the prostate (prostate gland) is to add fluid to semen during ejaculation. Prostate cancer is the second most common type of cancer in men. A screening test for cancer is a test that is done before cancer symptoms start. Screening can help to identify cancer at an early stage, when the cancer can be treated more easily. The recommended prostate cancer screening test is a blood test called the prostate-specific antigen (PSA) test. PSA is a protein that is made in the prostate. As you age, your prostate naturally produces more PSA. Abnormally high PSA levels may be caused by: ? Prostate cancer. ? An enlarged prostate that is not caused by cancer (benign prostatic hyperplasia, BPH). This condition is very common in older men. ? A prostate gland infection (prostatitis). ? Medicines to assist with hair growth, such as finasteride. Depending on the PSA results, you may need more tests, such as: ? A physical exam to check the size of your prostate gland. ? Blood and imaging tests. ? A procedure to remove tissue samples from your prostate gland for testing (biopsy). Who should have screening? Screening recommendations vary based on age. ? If you are younger than age 40, screening is not recommended. ? If you are age 40?54 and you have no risk factors, screening is not recommended. ? If you are younger than age 55, ask your health care provider if you need screening if you have one of these risk factors: ? Being of -[place] descent. ? Having a family history of prostate cancer. ? If you are age 55?69, talk with your health care provider about (more content not included)... Normal [facility] Patient Educationon 10-15-19 Patient Education Oncology Prostate Cancer Screening The prostate is a walnut-sized gland that is located below the bladder and in front of the rectum in males. The function of the prostate (prostate gland) is to add fluid to semen during ejaculation. Prostate cancer is the second most common type of cancer in men. A screening test for cancer is a test that is done before cancer symptoms start. Screening can help to identify cancer at an early stage, when the cancer can be treated more easily. The recommended prostate cancer screening test is a blood test called the prostate-specific antigen (PSA) test. PSA is a protein that is made in the prostate. As you age, your prostate naturally produces more PSA. Abnormally high PSA levels may be caused by: ? Prostate cancer. ? An enlarged prostate that is not caused by cancer (benign prostatic hyperplasia, BPH). This condition is very common in older men. ? A prostate gland infection (prostatitis). ? Medicines to assist with hair growth, such as finasteride. Depending on the PSA results, you may need more tests, such as: ? A physical exam to check the size of your prostate gland. ? Blood and imaging tests. ? A procedure to remove tissue samples from your prostate gland for testing (biopsy). Who should have screening? Screening recommendations vary based on age. ? If you are younger than age 40, screening is not recommended. ? If you are age 40?54 and you have no risk factors, screening is not recommended. ? If you are younger than age 55, ask your health care provider if you need screening if you have one of these risk factors: ? Being of -[place] descent. ? Having a family history of prostate cancer. ? If you are age 55?69, talk with your health care provider about your need for screening and how often screening should be done. ? If you are older than age 70, screening is not recommended. This is because the risks that screening can cause are greater than the benefits that it may provide (risks outweigh the benefits). If you are at high risk for prostate cancer, your health care provider may recommend that you have screenings more often or start screening at a younger age. You may be at high risk if you: ? Are older than age 55. ? Are -[place]. ? Have a father, brother, or uncle who has been diagnosed with prostate cancer. The risk may be higher if your family member's cancer occurred at an early age. What are the benefits of screening? There is a small chance that screening may lower your risk of dying from prostate cancer. The chance is small because prostate cancer is typically a slow-growing cancer, and most men with prostate cancer from a different cause. What are the risks of screening? The main risk of prostate cancer screening is diagnosing and treating prostate cancer that would never have caused any symptoms or problems (overdiagnosis and overtreatment). PSA screening cannot tell you if your PSA is high due to cancer or a different cause. A prostate biopsy is the only procedure to diagnose prostate cancer. Even the results of a biopsy may not tell you if your cancer needs to be treated. Slow-growing prostate cancer may not need any treatment other than monitoring, so diagnosing and treating it may cause unnecessary stress or other side effects. A prostate biopsy may also cause: ? Infection or fever. ? A false negative. This is a result that shows that you do not have prostate cancer when you actually do have prostate cancer. Questions to ask your health care provider ? When should I start prostate cancer screening? ? What is my risk for prostate cancer? ? How often do I need screening? ? What type of screening tests do I need? ? How do I get my test results? ? What do my results mean? ? Do I need treatment? Contact a health care provider if: ? You have difficulty urinating. ? You have pain when you urinate or ejaculate. ? You have blood in your urine or semen. ? You have pain in your back or in the area of your prostate. ? You have trouble getting or maintaining an erection (erectile dysfunction, ED). Summary ? Prostate cancer is a common type of cancer in men. The prostate (prostate gland) is located below the bladder and in front of the rectum. This gland adds fluid to semen during ejaculation. ? Prostate cancer screening may identify cancer at an early stage, when the cancer can be treated more easily. ? The prostate-specific antigen (PSA) test is the recommended screening test for prostate cancer. ? Discuss the risks and benefits of prostate cancer screening with your health care provider. If you are age 70 or older, screening is likely to lead to more risks than benefits (risks outweigh the benefits). This information is not intended to replace advice given to you by your health care provider. Make sure you discuss any questions you have with your health care provider. Document Released: 05/19/2018 Document R (more content not included)... Normal [facility] Urology Office/Clinic Noteon 10-15-2022 Urology Office/Clinic Note Chief Complaint Elevated PSA HPI Staff Patient is here to discuss options for elevated PSA. Patient was ordered an MRI and could not have it done because he could not lay supine. Patient was offed Valium and declined. No Urology medications. Patient denies any complaints at this time. History of Present Illness Tests reviewed: reviewed UA. I have reviewed the previous health record information and history for this patient from Dr. Sanches. I have reviewed and verified the staff HPI to be accurate for this encounter. There have been no associated fever, chills, flank pain, or blood in the urine. Denies any urinary infections since last encounter. Review of Systems PHQ Score Initial Depression Screen Score: 0 ROS - Provider Constitutional: denies weight loss, denies hot flashes. Eyes: denies eye problems. Gastrointestinal: denies nausea, denies vomiting. Cardiovascular: denies chest pain or angina. Integumentary: no dryness Musculoskeletal: denies musculoskeletal symptoms. ENMT: denies otolaryngeal symptoms. Respiratory: no shortness of breath. Heme/Lymph: denies easy bleeding tendency, denies easy bruising tendency. Psychiatric: no confusion, no anxiety. Genitourinary: denies dysuria, denies hematuria, denies discharge, denies urinary frequency, denies urinary hesitancy, denies nocturia, denies incontinence, denies genital sores, denies decreased libido, and denies erectile dysfunction. Physical Exam Vitals & Measurements HR: 86(Peripheral) BP: 128/79 HT: 69 in HT: 176 cm WT: 98 kg WT: 215.6 lb BMI: 31.64 General Appearance: alert, no distress, well nourished, well developed male. Genitourinary: normal scrotum, normal testes, normal urethra, normal epididymis, normal vas deferens/spermatic cord. Flank Pain: none. Bladder: nonpalpable. Assessment/Plan 1. Elevated PSA (R97.20: Elevated prostate specific antigen [PSA]) Neg bx 05/08/[address] Cole. Pt. was scheduled to have MRI of prostate done, but was unable to lay supine. Pt. was offered Valium and declined. Pt. aware that if he cannot handle having an MRI done then the next step would be a biopsy to confirm/rule out prostate cancer. Explained to pt. that it is ultimately his decision on how he wishes to proceed. At this time, pt. wishes to hold off at this time, feels he is not ready to proceed. Pt. understands there is a risk with waiting. Will draw PSA in office today, pt. to be called w/ results. If PSA is still significantly elevated, pt. understands a biopsy will be indicated. All questions/concerns were discussed. Pt. to call the office if heencounters any issues prior. Pt. acknowledges understanding. PSA: 05/21/22 - 6.8 & 7.1% 05/12/22 - 8.41 2. Benign prostatic hyperplasia (BPH) with post-void dribbling (N40.1: Benign prostatic hyperplasia with lower urinary tract symptoms) Patient is not taking any prostate medications. UA today neg. Post void dribbling ongoing for years. Follow-up With When Contact Information SELENA LEONG, Kashif Reis, [address] [place] [address]- Additional Instructions: PSA today - await results Patient Education Prostate Cancer Screening I, Dori Wynne, personally scribed for Dr. Sanches on 10/15/2022 11:17:13. . Documentation recorded by the scribe, Dori Wynne, accurately reflects the services(s) I performed and decisions made by me. Authenticated by Dr. Sanches on 10/15/2022 11:23:49. Problem List/Past Medical History Ongoing Anxiety disorder Benign prostatic hyperplasia (BPH) with post-void dribbling Depression Diabetes Elevated PSA Hypertension Historical No qualifying data Procedure/Surgical History Transrectal biopsy of prostate using ultrasound (US) guidance (2018), Eye implant, Repair of incisional hernia. Medications amLODIPine 5 mg Tab atenolol 50 mg Tab atorvastatin 10 mg Tab busPIRone 5 mg Tab furosemide 20 mg Tab hydrochlorothiazide-lo sartan 12.5 mg-50 mg Tab loratadine 10 mg Tab metformin 500 mg oral tablet traZODONE 150 mg Tab Allergies penicillin (Unknown skin reaction) Social History Alcohol - High Risk, 08/08/2019 Tobacco 10 or more cigarettes (1/2 pack or more)/day in last 30 days Tobacco Use:. Cigarettes, Yes, 10/15/2022 Family History Hypertension: Mother and Father. Immunizations Vaccine Date Status Comments SARSCoV2 mRNA(cwpgvwqla-kirj-cp cros) vac 03/12/2022 Recorded 2022-06-28: TPV70 SARS-CoV-2 (COVID-19) mRNA BNT-162b2 vax 11/14/2020 Recorded 2022-06-28: TPV70 SARS-CoV-2 (COVID-19) mRNA BNT-162b2 vax 10/24/2020 Recorded 2022-06-28: TPV70 Lab Results Ambulatory Point of Care Results Bilirubin Urine Dipstick: Negative (10/15/22 10:39:00) Blood Urine Dipstick: Negative (10/15/22 10:39:00) Glucose Urine Dipstick: Negative (10/15/22 10:39:00) Ketones Urine Dipstick: Negative (10/15/22 10:39:00) Leukocytes Urine Dipstick: Negativ (more content not included)... Normal [facility] Comment on above: Result Comment: Elec tronically Signed By: SELENA LEONG, Kashif Reis\.br\Date and Time Signed: 10/15/22 11:23 EST\.br\Electronically Co-Signed By: Dori Wynne\.br\Date and Time Co-Signed: 10/15/22 11:19 EST\.br\Electronically Co-Signed By: Dori Wynne\.br\Date and Time Co-Signed: 10/15/22 11:21 EST Creatinine (Bld) [Mass/Vol]O rdered By: Kashif Sanches on 07-14-2022 Creatinine [Mass/Vol] 0.8 mg/dL 0.6-1.3 [facility] Comment on above: ER/ESD physician is notified/shown all ISTAT results.Critical values may be confirmed by laboratory testing ifdeemed necessary by ER attending doctor. ISTAT XRrochelle CREon 07-14-2022 Creatinine [Mass/Vol] 0.8 mg/dL Normal 0.6-1.3 [facility] Comment on above: Result Comment: ER/E SD physician is notified/shown all ISTAT results. Critical values may be confirmed by laboratory testing if deemed necessary by ER attending doctor. Performed By: #### I SCRE #### [address] Point of Care testing , ISTAT GFR ( > 60 Normal [facility] Comment on above: Result Comment: GFR estimated reference range: According to KDOQI guidelines, <60 ml/min/1.73m2 is sufficient to diagnose a patient with chronic kidney disease. PERFORMED BY: [place] [address] PATHOLOGIST ED SPECIAL EDUCATION TEACHER MADELYN LAIRD M.D. Performed By: #### I SCRE #### [address] Point of Care testing , ISTAT GFR (Non- Am > 60 Normal [facility] Comment on above: Performed By: #### I SCRE #### [address] Point of Care testing , No Panel InformationOrdered By: Kashif Sanches on 07-14-2022 POC Estimated GFR > 60 [facility] Comment on above: GFR estimated refere nce range: According to KDOQI guidelines, <60 ml/min/1.73m2 is sufficient to diagnose a patient with chronic kidney disease. POC Estimated GFR Non- Amer > 60 [facility] Pre-Certification Formon Pre-Certification Form [id number] 0CD:127 Normal [facility] Lab Reportson 07-05-2022 Lab Reports [id number] 0CD:127 Normal [facility] Physician Referralon 022 Physician Referral [id number] 0CD:127 Normal [facility] Ambulatory Visit Summaryon 08-28-2021 Ambulatory Visit Summary GIANFRANCO MARTIN :1950 Visit Date:06/28/2022 Ambulatory Visit Instructions Your Diagnosis Elevated PSA Benign prostatic hyperplasia (BPH) with post-void dribbling Tests Performed MRI Pelvis (Soft Tissue) w/ + w/o contrast -- Results Pending -- Please visit your patient portal for your results or contact your primary care physician. Your Care Team Attending Physician - Kashif SANCHES MD Primary Care Physician - DAINA JUDGE CNP Referring Physician - DAINA JUDGE CNP This Is Your Medications List Contact prescribing physician if questions or concerns amlodipine (amLODIPine 5 mg Tab) atenolol (atenolol 50 mg Tab) atorvastatin (atorvastatin 10 mg Tab) busPIRone (busPIRone 5 mg Tab) furosemide (furosemide 20 mg Tab) hydrochlorothiazide-lo sartan (hydrochlorothiazide-l osartan 12.5 mg-50 mg Tab) loratadine (loratadine 10 mg Tab) metformin (metformin 500 mg oral tablet) trazodone (traZODONE 150 mg Tab) Procedures Performed Transrectal biopsy of prostate using ultrasound (US) guidance (2019), Eye implant, Repair of incisional hernia. Discharge Vitals Heart Rate (Peripheral) 74 Respiratory Rate 16 Blood Pressure 140/89 Height 176 cm Height 69 in Weight 98 kg Weight 215.6 lb BMI 31.64 What to do next You Need to Schedule the Following Appointments Follow Up with SELENA LEONG, STEFANI Seo When: Where: [facility] [address], [place] [address]- [phone] Medications What When Instructions Unchanged amlodipine (amLODIPine 5 mg Tab) Contact prescribing physician if questions or concerns Unchanged atenolol (atenolol 50 mg Tab) Contact prescribing physician if questions or concerns Unchanged atorvastatin (atorvastatin 10 mg Tab) Contact prescribing physician if questions or concerns Unchanged busPIRone (busPIRone 5 mg Tab) Contact prescribing physician if questions or concerns Unchanged furosemide (furosemide 20 mg Tab) Contact prescribing physician if questions or concerns Unchanged hydrochlorothiazide-lo sartan (hydrochlorothiazide-l osartan 12.5 mg-50 mg Tab) Contact prescribing physician if questions or concerns Unchanged loratadine (loratadine 10 mg Tab) Oral route, 3 Refill(s), 1 tablet by mouth once a day Contact prescribing physician if questions or concerns Unchanged metformin (metformin 500 mg oral tablet) Contact prescribing physician if questions or concerns Unchanged trazodone (traZODONE 150 mg Tab) Contact prescribing physician if questions or concerns Allergies penicillin (Unknown skin reaction) Problems Ongoing - Any problem that you are currently receiving treatment for. Anxiety disorder Benign prostatic hyperplasia (BPH) with post-void dribbling Depression Diabetes Elevated PSA Hypertension Education Materials Benign Prostatic Hyperplasia Benign prostatic hyperplasia (BPH) is an enlarged prostate gland that is caused by the normal aging process and not by cancer. The prostate is a walnut-sized gland that is involved in the production of semen. It is located in front of the rectum and below the bladder. The bladder stores urine and the urethra is the tube that carries the urine out of the body. The prostate may get bigger as a man gets older. An enlarged prostate can press on the urethra. This can make it harder to pass urine. The build-up of urine in the bladder can cause infection. Back pressure and infection may progress to bladder damage and kidney (renal) failure. What are the causes? This condition is part of a normal aging process. However, not all men develop problems from this condition. If the prostate enlarges away from the urethra, urine flow will not be blocked. If it enlarges toward the urethra and compresses it, there will be problems passing urine. What increases the risk? This condition is more likely to develop in men over the age of 50 years. What are the signs or symptoms? Symptoms of this condition include: ? Getting up often during the night to urinate. ? Needing to urinate frequently during the day. ? Difficulty starting urine flow. ? Decrease in size and strength of your urine stream. ? Leaking (dribbling) after urinating. ? Inability to pass urine. This needs immediate treatment. ? Inability to completely empty your bladder. ? Pain when you pass urine. This is more common if there is also an infection. ? Urinary tract infection (UTI). How is this diagnosed? This condition is diagnosed based on your medical history, a physical exam, and your symptoms. Tests will also be done, such as: ? A post-void bladder scan. This measures any amount of urine that may remain in your bladder after you finish urinating. ? A digital rectal exam. In a rectal exam, your health care provider checks your prostate by putting a lubricated, gloved finger into your rectum to feel the back of your prostate gland (more content not included)... Normal [facility] Historical Records Officeon 06-28-2022 Historical Records Office [id number] 00CD:127 Normal [facility] Patient Educationon 06-28-20 Patient Education Urology Benign Prostatic Hyperplasia Benign prostatic hyperplasia (BPH) is an enlarged prostate gland that is caused by the normal aging process and not by cancer. The prostate is a walnut-sized gland that is involved in the production of semen. It is located in front of the rectum and below the bladder. The bladder stores urine and the urethra is the tube that carries the urine out of the body. The prostate may get bigger as a man gets older. An enlarged prostate can press on the urethra. This can make it harder to pass urine. The build-up of urine in the bladder can cause infection. Back pressure and infection may progress to bladder damage and kidney (renal) failure. What are the causes? This condition is part of a normal aging process. However, not all men develop problems from this condition. If the prostate enlarges away from the urethra, urine flow will not be blocked. If it enlarges toward the urethra and compresses it, there will be problems passing urine. What increases the risk? This condition is more likely to develop in men over the age of 50 years. What are the signs or symptoms? Symptoms of this condition include: ? Getting up often during the night to urinate. ? Needing to urinate frequently during the day. ? Difficulty starting urine flow. ? Decrease in size and strength of your urine stream. ? Leaking (dribbling) after urinating. ? Inability to pass urine. This needs immediate treatment. ? Inability to completely empty your bladder. ? Pain when you pass urine. This is more common if there is also an infection. ? Urinary tract infection (UTI). How is this diagnosed? This condition is diagnosed based on your medical history, a physical exam, and your symptoms. Tests will also be done, such as: ? A post-void bladder scan. This measures any amount of urine that may remain in your bladder after you finish urinating. ? A digital rectal exam. In a rectal exam, your health care provider checks your prostate by putting a lubricated, gloved finger into your rectum to feel the back of your prostate gland. This exam detects the size of your gland and any abnormal lumps or growths. ? An exam of your urine (urinalysis). ? A prostate specific antigen (PSA) screening. This is a blood test used to screen for prostate cancer. ? An ultrasound. This test uses sound waves to electronically produce a picture of your prostate gland. Your health care provider may refer you to a specialist in kidney and prostate diseases (urologist). How is this treated? Once symptoms begin, your health care provider will monitor your condition (active surveillance or watchful waiting). Treatment for this condition will depend on the severity of your condition. Treatment may include: ? Observation and yearly exams. This may be the only treatment needed if your condition and symptoms are mild. ? Medicines to relieve your symptoms, including: ? Medicines to shrink the prostate. ? Medicines to relax the muscle of the prostate. ? Surgery in severe cases. Surgery may include: ? Prostatectomy. In this procedure, the prostate tissue is removed completely through an open incision or with a laparoscope or robotics. ? Transurethral resection of the prostate (TURP). In this procedure, a tool is inserted through the opening at the tip of the penis (urethra). It is used to cut away tissue of the inner core of the prostate. The pieces are removed through the same opening of the penis. This removes the blockage. ? Transurethral incision (TUIP). In this procedure, small cuts are made in the prostate. This lessens the prostate's pressure on the urethra. ? Transurethral microwave thermotherapy (TUMT). This procedure uses microwaves to create heat. The heat destroys and removes a small amount of prostate tissue. ? Transurethral needle ablation (TUNA). This procedure uses radio frequencies to destroy and remove a small amount of prostate tissue. ? Interstitial laser coagulation (ILC). This procedure uses a laser to destroy and remove a small amount of prostate tissue. ? Transurethral electrovaporization (TUVP). This procedure uses electrodes to destroy and remove a small amount of prostate tissue. ? Prostatic urethral lift. This procedure inserts an implant to push the lobes of the prostate away from the urethra. Follow these instructions at home: ? Take sxte-pho-qfuugbn and prescription medicines only as told by your health care provider. ? Monitor your symptoms for any changes. Contact your health care provider with any changes. ? Avoid drinking large amounts of liquid before going to bed or out in public. ? Avoid or reduce how much caffeine or alcohol you drink. ? Give yourself time when you urinate. ? Keep all follow-up visits as told by your health care provider. This is important. Contact a health care provider if: ? You have unexplained back pain. ? Your symptoms do not get better with treatment. ? You d (more content not included)... Normal [facility] PSA, FREE AND TOTAL RATIOon 05-21-2022 % Free PSA 7.1 % Normal [facility] Comment on above: Result Comment: The table below lists the probability of prostate cancer for men with non-suspicious NATANAEL results and total PSA between 4 and 10 ng/mL, by patient age (Cresencio et al, NIYAH 1998, 279:1542). % Free PSA 50-64 yr 65-75 yr 0.00-10.00% 56% 55% 10.01-15.00% 24% 35% 15.01-20.00% 17% 23% 20.01-25.00% 10% 20% >25.00% 5% 9% Please note: Cresencio et al did not make specific recommendations regarding the use of percent free PSA for any other population of men. Performed By: #### P SAFREE #### [facility] [address] [place] [address] Dr. Zaira Benoit Prostate specific Ag [Mass/Vol] 6.8 ng/mL Critically high 0.0-4.[address] [facility] Comment on above: Result Comment: Bryant SEXTON methodology. . According to the [place] [employer], Serum PSA should decrease and remain at undetectable levels after radical prostatectomy. The AUA defines biochemical recurrence as an initial PSA value 0.2 ng/mL or greater followed by a subsequent confirmatory PSA value 0.2 ng/mL or greater. Values obtained with different assay methods or kits cannot be used interchangeably. Results cannot be interpreted as absolute evidence of the presence or absence of malignant disease. Performed By: #### P SAFREE #### [facility] [address] [place] [address] Dr. Zaira Benoit PSA, Free 0.48 ng/mL Normal N/A [facility] Comment on above: Result Comment: Bryant SEXTON methodology. Performed By: #### P SAFREE #### [facility] [address] [place] [address] Dr. Zaira Benoit INSULINon 05-13-2022 Insulin 7.8 uIU/mL Normal 2.6-24.9 [facility] Comment on above: Performed By: #### I NSULIN #### [facility] [address] [place] [address] Dr. Zaira Benoit CBC AUTO DIFFon 05-12-2022 BASO # 0.1 103/ul Normal 0.0-0.[address] [facility] Comment on above: Performed By: #### C BC #### [facility] [address] [place] [address] Dr. Zaira Benoit Basophils/100 WBC (Bld) 0.9 % Normal 0.2-2.[address] [facility] Comment on above: Performed By: #### C BC #### [facility] [address] [place] [address] Dr. Zaira Benoit EO # 0.2 103/ul Normal 0.0-0.7 [facility] Comment on above: Performed By: #### C BC #### [facility] [address] [place] [address] Dr. Zaira Benoit Eosinophils/100 WBC (Bld) 2.1 % Normal 0.9-7.0 [facility] Comment on above: Performed By: #### C BC #### [facility] [address] [place] [address] Dr. Zaira Benoit Erythrocyte distribution width (RBC) [Ratio] 13.2 % Normal 11.0-15.0 [facility] Comment on above: Performed By: #### C BC #### [facility] [address] [place] [address] Dr. Zaira Benoit Hematocrit (Bld) [Volume fraction] 46.6 % Normal 42.0-54.0 [facility] Comment on above: Performed By: #### C BC #### [facility] [address] [place] [address] Dr. Zaira Benoit Hemoglobin (Bld) [Mass/Vol] 15.5 g/dL Normal 14.0-18.0 [facility] Comment on above: Performed By: #### C BC #### [facility] [address] [place] [address] Dr. Zaira Benoit IG # 0.02 10e3/ul Normal 0.00-0.03 [facility] Comment on above: Performed By: #### C BC #### [facility] [address] [place] [address] Dr. Zaira Benoit IG % 0.3 % Normal 0.0-0.5 [facility] Comment on above: Performed By: #### C BC #### [facility] [address] [place] [address] Dr. Zaira Benoit LYMPH # 2.6 103/ul Normal 1.2-3.[address] [facility] Comment on above: Performed By: #### C BC #### [facility] [address] [place] [address] Dr. Zaira Benoit Lymphocytes/100 WBC (Bld) 36.9 % Normal 20.5-60.0 [facility] Comment on above: Performed By: #### C BC #### [facility] [address] [place] [address] Dr. Zaira Benoit MANUAL DIFF REQ NO Normal [facility] Comment on above: Performed By: #### C BC #### [facility] [address] [place] [address] Dr. Zaira Benoit MCH (RBC) [Entitic mass] 33.2 pg Normal 25.9-34.0 [facility] Comment on above: Performed By: #### C BC #### [facility] [address] [place] [address] Dr. Zaira Benoit MCHC (RBC) [Mass/Vol] 33.3 g/dL Normal 29.9-35.2 [facility] Comment on above: Performed By: #### C BC #### [facility] [address] [place] [address] Dr. Zaira Benoit MCV (RBC) [Entitic vol] 99.8 fL Critically high 80.0-94.0 [facility] Comment on above: Performed By: #### C BC #### [facility] [address] [place] [address] Dr. Zaira Benoit MONO # 0.6 103/ul Normal 0.3-0.8 [facility] Comment on above: Performed By: #### C BC #### [facility] [address] [place] [address] Dr. Zaira Benoit Monocytes/100 WBC (Bld) 9.1 % Normal 1.7-12.0 [facility] Comment on above: Performed By: #### C BC #### [facility] [address] [place] [address] Dr. Zaira Benoit NEUT # 3.6 103/ul Normal 1.4-6.[address] [facility] Comment on above: Performed By: #### C BC #### [facility] [address] [place] [address] Dr. Zaira Benoit Neutrophils/100 WBC (Bld) 50.7 % Normal 43.0-75.0 [facility] Comment on above: Performed By: #### C BC #### [facility] [address] [place] [address] Dr. Zaira Benoit Platelet mean volume (Bld) [Entitic vol] 9.3 fL Critically low 9.5-13.5 [facility] Comment on above: Performed By: #### C BC #### [facility] [address] [place] [address] Dr. Zaira Benoit PLT 191 103/ul Normal 150-450 [facility] Comment on above: Performed By: #### C BC #### [facility] [address] [address] [address] Zaira Benoit RBC 4.67 106/ul Critically low 4.70-6.10 [facility] Comment on above: Performed By: #### C BC #### [facility] [address] [address] [address] Zaira Benoit WBC 7.0 103/ul Normal 4.0-11.0 [facility] Comment on above: Performed By: #### C BC #### [facility] [address] [place] [address] Dr. Zaira Benoit GLYCOHEMOGLOBIN A1Con 2021 ADA RECOMMENDATION SEE BELOW Normal [facility] Comment on above: Result Comment: ADA RECOMMENDED LIMIT 4.0 - 6.0 ADA THERAPEUTIC TARGET < 7.0 ACTION SUGGESTED > 7.0 Performed By: #### A 1C #### [facility] [address] [place] [address] Dr. Zaira Benoit Glucose [Mass/Vol] 151 mg/dL Normal [facility] Comment on above: Performed By: #### A 1C #### [facility] [address] [place] [address] Dr. Zaira Benoit HbA1c (Bld) [Mass fraction] 6.9 % Critically high 4.5-6.2 [facility] Comment on above: Performed By: #### A 1C #### [facility] [address] [place] [address] Dr. Zaira Benoit LIPID PROFILEon 05-12-2022 CHOL-HDL RATIO NORM SEE BELOW Normal [facility] Comment on above: Result Comment: 3.3 - 4.4 LOW RISK 4.4 - 7.1 AVERAGE RISK 7.1 - 11.0 MODERATE RISK >11.0 HIGH RISK Performed By: #### L IPID, URIC, CMP #### [facility] [address] [address] [address] Zaira Benoit Cholesterol [Mass/Vol] 132 mg/dL Normal <=200 [facility] Comment on above: Performed By: #### L IPID, URIC, CMP #### [facility] [address] [address] [address] Zaira Benoit Cholesterol in HDL [Mass/Vol] 53 mg/dL Normal 40-60 [facility] Comment on above: Performed By: #### L IPID, URIC, CMP #### [facility] [address] [address] [address] Zaira Benoit Cholesterol in LDL [Mass/Vol] 59.6 mg/dL Normal [facility] Comment on above: Performed By: #### L IPID, URIC, CMP #### [facility] [address] [address] [address] Zaira Benoit Cholesterol.total/Chol esterol in HDL [Mass ratio] 2.5 {ratio} Normal [facility] Comment on above: Performed By: #### L IPID, URIC, CMP #### [facility] [address] [address] [address] Zaira Benoit HDL NORMAL > or = 60 mg/dl - LO W CARDIOVASCULAR RISK <40 mg/dl - HIGH CARDIOVASCULAR RISK Normal [facility] Comment on above: Performed By: #### L IPID, URIC, CMP #### [facility] [address] [address] [address] Zaira Benoit LDL CALC NORMAL SEE BELOW Normal [facility] Comment on above: Result Comment: <100 mg/dl OPTIMAL 100 - 129 mg/dl NEAR OR ABOVE OPTIMAL 130 - 159 mg/dl BORDERLINE HIGH 160 - 189 mg/dl HIGH >190 mg/dl VERY HIGH Performed By: #### L IPID, URIC, CMP #### [facility] [address] [address] [address] Zaira Benoit Triglyceride [Mass/Vol] 97 mg/dL Normal <=150 [facility] Comment on above: Performed By: #### L IPID, URIC, CMP #### [facility] [address] [address] [address] Zaira Benoit VLDL CALC 19.4 mg/dL Normal [facility] Comment on above: Performed By: #### L IPID, URIC, CMP #### [facility] [address] [address] [address] Zaira Benoit PROF 14(COMP METB)on 022 Albumin [Mass/Vol] 3.9 g/dL Normal 3.4-5.0 [facility] Comment on above: Performed By: #### L IPID, URIC, CMP #### [facility] [address] [address] [address] Zaira Benoit Albumin/Globulin [Mass ratio] 1.1 {ratio} Normal [facility] Comment on above: Performed By: #### L IPID, URIC, CMP #### [facility] [address] [address] [address] Zaira Benoit ALP [Catalytic activity/Vol] 92 U/L Normal 46-116 [facility] Comment on above: Performed By: #### L IPID, URIC, CMP #### [facility] [address] [address] [address] Zaira Benoit ALT [Catalytic activity/Vol] 31 U/L Normal 16-63 [facility] Comment on above: Performed By: #### L IPID, URIC, CMP #### [facility] [address] [address] [address] Zaira Benoit Anion gap [Moles/Vol] 12.2 mmol/L Normal [facility] Comment on above: Performed By: #### L IPID, URIC, CMP #### [facility] [address] [address] [address] Zaira Benoit AST [Catalytic activity/Vol] 20 U/L Normal 15-37 [facility] Comment on above: Performed By: #### L IPID, URIC, CMP #### [facility] [address] [address] [address] Zaira Benoit Bilirubin [Mass/Vol] 0.4 mg/dL Normal 0.2-1.0 [facility] Comment on above: Performed By: #### L IPID, URIC, CMP #### [facility] [address] [place] [address] Dr. Zaira Benoit Calcium [Mass/Vol] 8.8 mg/dL Normal 8.5-10.1 [facility] Comment on above: Performed By: #### L IPID, URIC, CMP #### [facility] [address] [place] [address] Dr. Zaira Benoit Chloride [Moles/Vol] 101 mmol/L Normal 98-107 [facility] Comment on above: Performed By: #### L IPID, URIC, CMP #### [facility] [address] [place] [address] Dr. Zaira Benoit CO2 [Moles/Vol] 29.3 mmol/L Normal 21.0-32.0 [facility] Comment on above: Performed By: #### L IPID, URIC, CMP #### [facility] [address] [place] [address] Dr. Zaira Benoit Creatinine [Mass/Vol] 0.88 mg/dL Normal 0.70-1.30 [facility] Comment on above: Performed By: #### L IPID, URIC, CMP #### [facility] [address] [place] [address] Dr. Zaira Benoit EGFR-AF BOTSWANAN >60 Normal >=60 [facility] Comment on above: Performed By: #### L IPID, URIC, CMP #### [facility] [address] [place] [address] Dr. Zaira Benoit EGFR-NON AF BOTSWANAN >60 Normal >=60 [facility] Comment on above: Performed By: #### L IPID, URIC, CMP #### [facility] [address] [place] [address] Dr. Zaira Benoit Globulin (S) [Mass/Vol] 3.6 g/dL Normal [facility] Comment on above: Performed By: #### L IPID, URIC, CMP #### [facility] [address] [place] [address] Dr. Zaira Benoit Glucose [Mass/Vol] 128 mg/dL Critically high 74-106 [facility] Comment on above: Performed By: #### L IPID, URIC, CMP #### [facility] [address] [address] [address] Zaira Benoit Potassium [Moles/Vol] 4.5 mmol/L Normal 3.5-5.1 [facility] Comment on above: Performed By: #### L IPID, URIC, CMP #### [facility] [address] [place] [address] Dr. Zaira Benoit Protein [Mass/Vol] 7.5 g/dL Normal 6.4-8.2 [facility] Comment on above: Performed By: #### L IPID, URIC, CMP #### [facility] [address] [place] [address] Dr. Zaira Benoit Sodium [Moles/Vol] 138 mmol/L Normal 136-145 [facility] Comment on above: Performed By: #### L IPID, URIC, CMP #### [facility] [address] [place] [address] Dr. Zaira Benoit Urea nitrogen [Mass/Vol] 4.0 mg/dL Critically low 7.0-18.0 [facility] Comment on above: Performed By: #### L IPID, URIC, CMP #### [facility] [address] [place] [address] Dr. Zaira Benoit Urea nitrogen/Creatinine [Mass ratio] 4.5 mg/mg Normal [facility] Comment on above: Performed By: #### L IPID, URIC, CMP #### [facility] [address] [place] [address] Dr. Zaira Benoit URIC ACID SERUMon 05-12-2022 Urate [Mass/Vol] 7.5 mg/dL Critically high 3.5-7.2 [facility] Comment on above: Performed By: #### L IPID, URIC, CMP #### [facility] [address] [place] [address] Dr. Zaira Benoit No Panel Information [facility] Vital Signs Date Time Vital Sign Value Performing Clinician Faci lity 10-15-2022 10:45-0500 Diastolic blood pressure 79 mm[Hg] Kashifcarlos SANCHES [facility] 10-15-2022 10:45-0500 Heart rate 86 /min Kashif SANCHES [facility] 10-15-2022 10:45-0500 Systolic blood pressure 128 mm[Hg] Kashif SNACHES [facility] 06-28-2022 13:37-0500 Blood Pressure Location Kashifcarlos SANCHES [facility] 06-28-2022 13:37-0500 Diastolic blood pressure 89 mm[Hg] Kashif SANCHES [facility] 06-28-2022 13:37-0500 Heart rate 74 /min Kashifcarlos SANCHES [facility] 06-28-2022 13:37-0500 Respiratory rate 16 /min Kashif SANCHES [facility] 06-28-2022 13:37-0500 Systolic blood pressure 140 mm[Hg] Kashif SANCHES [facility] Encounters Encounter Date Encounter Type Care Provider Facility Start: 09-21-2023 End: 09-21-2023 ambulatory MONTSERRAT HA [facility] Start: 08-26-2023 End: 08-26-2023 ambulatory FABRIZIO MACIAS [facility] Start: 06-27-2023 End: 06-27-2023 ambulatory RAUL SUN Facility:[facility] Start: 06-06-2023 End: 06-06-2023 ambulatory MARQUIS WEAVER Facility:[facility] Start: 06-06-2023 End: 06-06-2023 Patient encounter procedure Marquis Weaver OD Work Phone: Ophthalmology Comment on above: Type 2 diabetes wil itus without retinopathy (HCC) (Primary Dx); Retinal hemorrhage, left eye; Nuclear sclerotic cataract of right eye; Pseudophakia, left eye; History of YAG laser capsulotomy of lens, left; History of retinal detachment Start: 03-02-2023 ambulatory RADHA GRAY Facility :[facility] Start: 03-02-2023 End: 03-02-2023 Patient encounter procedure Radha Gray MD Work Phone: Ophthalmology Comment on above: OPENED IN ERROR (Jocelyne reji Dx) Start: 10-26-2022 End: 10-27-[address] KASHIF SANCHES . Facility: Start: 10-15-2022 End: 10-16-2022 ambulatory Kashif SANCHES Facility:[facility] [place] [place] Start: 10-15-2022 End: 10-16-2022 ambulatory Kashif SANCHES Facility:[facility] Start: 10-15-2022 End: 10-15-2022 Lab Drop off Kashif SANCHES [facility] Start: 10-15-2022 End: 10-15-2022 Patient encounter procedure Kashif SANCHES [facility] Start: 07-14-2022 End: 07-14-2022 ambulatory Daina Judge Facility[facility] Start: 07-14-2022 End: 07-14-2022 ambulatory SHUT OFF WORKER-C Daina Judge Work Phone: [facility] Work Phone: Start: 07-14-2022 End: 07-14-2022 Patient encounter procedure SHUT OFF WORKER-C Daina Judge Work Phone: [facility] [place] Start: 06-28-2022 End: 06-29-2022 ambulatory Kashif SANCHES Facility:[facility] Start: 06-28-2022 End: 06-28-2022 Patient encounter procedure Kashif SANCHES [facility] Start: 06-16-2022 End: 06-16-2022 Patient encounter procedure Radha Gray MD Work Phone: Ophthalmology Comment on above: After-cataract obscu ring vision, left (Primary Dx); Pseudophakia, left eye; Nuclear senile cataract of right eye; History of retinal detachment - left eye; Epiretinal membrane (ERM) of left eye; Type 2 diabetes mellitus without retinopathy (HCC) Start: 05-20-2022 End: 05-21-2022 ambulatory DAINA ALFIE Facility:[facility] Start: 05-12-2022 End: 05-13-2022 ambulatory [facility] Facility:[facility] Start: 03-01-2022 End: 03-01-2022 Patient encounter procedure Marquis Weaver OD Work Phone: Ophthalmology Comment on above: After-cataract obscu ring vision, left (Primary Dx); Pseudophakia, left eye; Nuclear senile cataract of right eye; History of retinal detachment - left eye; Epiretinal membrane (ERM) of left eye; Type 2 diabetes mellitus without retinopathy (HCC); Dermatochalasis of both upper eyelids Start: 02-26-2022 ambulatory Radha Gray MD Work Phone: Ophthalmology Comment on above: left eye Start: 02-17-2022 End: 02-17-2022 Patient encounter procedure Radha Gray MD Work Phone: Ophthalmology Comment on above: Nuclear senile catar act of right eye (Primary Dx); History of retinal detachment - left eye; Epiretinal membrane (ERM) of left eye; Type 2 diabetes mellitus without retinopathy (HCC); Pseudophakia, left eye Procedures Date Procedure Procedure Detail Performing Clinician Start: 10-26-[address] ZOLTAN SANCHES . Comment on above: Performed By: #### P SAD #### [facility] [address] [place] [address] Dr. Zaira Benoit Start: 06-16-2022 Post-cataract laser surgery Radha Gray MD Work Phone: Start: 05-12-[address] ZOLTAN SANCHES . Comment on above: Performed By: #### P [facility] #### [facility] [address] [address] [address] Zaira Benoit Start: 02-17-2022 Computerized ophthal marquis imaging retina Radha Gray MD Work Phone: Start: 02-17-2022 Computerized corneal topography uni/bi Radha Gray MD Work Phone: Start: 08-22-2018 Transrectal biopsy o f prostate using ultrasound guidance Kashif SANCHES Ophthalmological imp lant (physical object) Kashif SANCHES Comment on above: left eye Repair of incisional hernia Kashif SANCHES Plan of Treatment Date Care Activity Detail Author Start: 06-06-2024 Hepatitis C antibody , confirmatory test Dilated Retinal Exam [facility] Start: 06-16-2023 Hepatitis C antibody , confirmatory test DILATED RETINAL EXAM [facility] Start: 04-22-2023 Covid-19 Vaccine ( season) Covid-19 Vaccine ( season) [facility] Start: 04-22-2023 Influenza vaccination [facility] Start: 03-01-2023 Hepatitis C antibody , confirmatory test DILATED RETINAL EXAM [facility] Start: 02-17-2023 Hepatitis C antibody , confirmatory test DILATED RETINAL EXAM [facility] Start: 12-11-2022 COVID-19 VACCINE (5 - Pfizer series) COVID-19 VACCINE (5 - Pfizer series) [facility] Start: 08-22-2022 ADVANCE DIRECTIVE DISCUSSION ADVANCE DIRECTIVE DISCUSSION [facility] Start: 08-22-2022 DEPRESSION ASSESSMENT DEPRESSION ASS ESSMENT [facility] Start: 05-07-2022 COVID-19 VACCINE (4 - Booster for Pfizer series) COVID-19 VACCINE (4 - Booster for Pfizer series) [facility] Start: 04-22-2022 Influenza vaccination [facility] Start: 08-22-2021 ADVANCE DIRECTIVE DISCUSSION ADVANCE DIRECTIVE DISCUSSION [facility] Start: 08-22-2021 DEPRESSION ASSESSMENT DEPRESSION ASS ESSMENT [facility] Start: 04-16-2021 COVID-19 VACCINE (3 - Booster for Pfizer series) COVID-19 VACCINE (3 - Booster for Pfizer series) [facility] Start: 07-25-2020 COLORECTAL CANCER SCREENING COLORECTAL CANCER SCREENING [facility] Start: 07-25-2020 FECAL OCCULT BLOOD FECAL OCCULT BLOO D [facility] Start: 07-25-2020 Hepatitis B screening URINE AL BUMIN:CREATININE RATIO [facility] Start: 07-25-2020 Hepatitis B surface antibody level LDL CHOLESTEROL [facility] Start: 01-24-2020 Hemoglobin A1c/Hemoglobin.total in Blood HBA1C [facility] Start: 2009 Hepatitis B Vaccine (1 of 3 - Risk 3-dose series) Hepatitis B Vaccine (1 of 3 - Risk 3-dose series) [facility] Start: 11-27-1999 SHINGRIX VACCINE (1 of 2) SHINGRIX V ACCINE (1 of 2) [facility] Start: 1994 COLOGUARD (FIT-DNA) COLOGUARD (FIT-D NA) [facility] Start: 1994 Colonoscopy COLONOSCOPY [facility] Start: [address] COLONOGRAPHY [facility] Start: 1994 SIGMOIDOSCOPY SIGMOIDOSCOPY [facility] Start: 1968 Urine microalbumin profile [facility] Start: 11-27-1967 ANNUAL PCP TEAM RESIDENTIAL SALES REPRESENTATIVE GERSON DISEASE VISIT ANNUAL PCP TEAM CHRONIC DISEASE VISIT [facility] Start: 11-27-1967 HEPATITIS C SCREENING HEPATITIS C SC REENING [facility] Start: 1961 Adult depression scr eening assessment DEPRESSION SCREENING [facility] Start: 11-27-1959 3 comp foot exam completed DIABETIC FOOT EXAM [facility] Start: 11-27-1955 Pneumococcal Vaccine : 65+ (1 - PCV) Pneumococcal Vaccine: 65+ (1 - PCV) [facility] Start: 11-27-1955 PNEUMOCOCCAL: 65+ (1 - PCV) PNEUMOCOCCAL: 65+ (1 - PCV) [facility] Start: 1949 ABDOMINAL AORTIC ANE URYSM SCREENING ABDOMINAL AORTIC ANEURYSM SCREENING [facility] Immunizations Immunization Date Immunization Notes Care Provider Fa cility 03-12-2022 SARS-CoV-2 mRNA (smsmbkwydad-subk-czrec se) vaccine Kashif SANCHES [facility] Comment on above: Result Comment: 2021: [id number] 11-14-2020 COVID-19 vaccine, ag e 12+ yr (PFIZER-BIONTECH - PURPLE TOP) Radha Gray MD Work Phone: [facility] Comment on above: Result Comment: 2021: [id number] 10-24-2020 COVID-19 vaccine, ag e 12+ yr (PFIZER-BIONTECH - PURPLE TOP) Radha Gray MD Work Phone: [facility] Comment on above: Result Comment: 2021: [id number] Payers Date Payer Category Payer Self-pay 2017 Unknown ANTHEM BLUE CROS S AND BLUE SHIELD ANTHEM MEDIBLUE O [id number] 2017-Present [phone] [id number] O [id number] 2017 Unknown ANTHEM BLUE CROS S AND BLUE SHIELD ANTHEM MEDIBLUE O [id number] 2017-Present [phone] [address] [place] [id number] O [id number] 1959 Medicare [id number] 1950 Unknown [id number] 1949 Unknown [id number] 1949 Unknown [id number] 1949 Unknown [id number] 1949 Unknown [id number] 1949 Unknown [id number] Medicare Medicare [id number] Unknown [id number] Social History Date Type Detail Facility Start: 11-03-2016 End: 06-16-2022 Tobacco smoking status NHIS Smokes tobacco daily [facility] History of tobacco use Cigarette Smoker [facility] Start: 11-03-2016 End: 03-02-2023 Cigarettes smoked current (pack per day) - Reported 1 [facility] Start: 11-03-2016 End: 06-16-2022 Tobacco use and exposure Smokeless tobacco non-user [facility] Start: 02-17-2022 End: 06-06-2023 Alcohol intake Current drinker of alcohol (finding) [facility] Start: 11-20-2018 History SDOH Alcohol Comment per day [facility] Start: 1950 Sex Assigned At Not on file [facility] Start: 06-28-2022 End: 10-15-2022 Tobacco smoking status Heavy tobacco smoker (finding) [facility] Start: 06-16-2022 End: 03-02-2023 Sex Assigned At Male [facility] Start: 1950 Sex Assigned At Male F [facility] National Score (1-10 0), lower number is lower risk 87 [facility] Medical Equipment Procedure Code Equipment Code Equipment Origin al Text Equipment Identifier Dates Lens Acrysof Iq +19.5 Diopter Natural Stableforce 0 D Biconvex 118.7 - [id number] Start: 02-07-2017 Functional Status Date Assessment Result Facility 10-15-2022 Functional Status N/A [facility] 06-28-2022 Functional Status N/A [facility] Clinical Notes 02-17-2022 to 09-21-2023 Marquis Weaver, OD - 06/06/2023 2:21 PM EDThais Gray MD - 06/16/2022 1:52 PM Annie Weaver, OD - 03/01/2022 4:08 PM Lianet Gray MD - 02/17/2022 2:03 PM EDT Note Date & Type Note Facility 09-21-2023 Note Start aldactone and continue lasix 40 mg daily Repeat bmp 1 week [facility] 09-21-2023 Note Hypertension is unco ntrolled, and with leg swelling/edema asked pt to stop norvasc and start aldactone. Repeat labs in 1 week and to notify office for any concerns/ side effects- muscle cramps, tenderness. Pt does not check b/p at home [facility] 09-21-2023 Note Recommended smoking cessation- pt is not agreeable at this time [facility] 09-21-2023 Note Reports WILLAMS, noted w eight gain of 3 pounds since last visit 08/26/23 and he states he is up about 30-40 pounds over the last year. Admits chronic BLE edema and feels like all his cloths are tight- especially around the belly. Stop amlodipine and start aldactone for HTN and fluid retention. Repeat BMP in 1 week to check renal function and electrolytes. [facility] 09-21-2023 Note Patient here for car diac clearance to start physical therapy for back pain. C/o LE edema and tight calves . Adamantly denies chest pain. Denies palpitations and lightheadedness. Smokes 1.5 PPD. Review of Systems Cardiovascular: Positive for dyspnea on exertion and leg swelling. Respiratory: Positive for shortness of breath. Skin: Positive for color change and dry skin. Musculoskeletal: Positive for arthritis, back pain, joint pain and myalgias. All other systems reviewed and are negative. [facility] 09-21-2023 Note [facility] CARDIOLOGY PROGR ESS NOTE HPI: Gianfranco Martin is a 72 y.o. male here for HTN and shortness of breath HPI 72 yo male presents today for cardiac evaluation to return to physical therapy. Patient here for cardiac clearance to start physical therapy for back pain. C/o LE edema and tight calves . Adamantly denies chest pain. Denies palpitations and lightheadedness. Smokes 1.5 PPD. Denied chest pain, admits SOB with exertion, and leg swelling. Denied orthopnea. Review of Systems Cardiovascular: Positive for dyspnea on exertion and leg swelling. Respiratory: Positive for shortness of breath. Skin: Positive for color change and dry skin. Musculoskeletal: Positive for arthritis, back pain, joint pain and myalgias. All other systems reviewed and are negative Visit Vitals BP 152/80 (BP Location: Right arm, Patient Position: Sitting) Pulse 83 Ht 1.753 m (5' 9 ) Wt 103 kg (226 lb) SpO2 97% BMI 33.37 kg/m??? Smoking Status Every Day BSA 2.24 m??? Allergies Allergen Reactions Penicillin Unknown and Other Medications: Current Outpatient Medications on File Prior to Visit Medication Sig Dispense Refill albuterol 90 mcg/actuation inhaler atenolol (Tenormin) 50 mg tablet Take 1 tablet by mouth once daily for 90 atorvastatin (Lipitor) 10 mg tablet 1 (one) time each day at the same time. busPIRone (Buspar) 10 mg tablet every 12 (twelve) hours. cholecalciferol, vitamin D3, 50 mcg (2,000 unit) capsule Take by mouth. diclofenac (Voltaren) 75 mg EC tablet 1 tablet Orally Twice a day prn for 14 days FLUoxetine (PROzac) 40 mg capsule Take 40 mg by mouth in the morning. furosemide (Lasix) 20 mg tablet Take 20 mg by mouth in the morning. loratadine (Claritin) 10 mg tablet 1 (one) time each day at the same time. losartan (Cozaar) 50 mg tablet Take 50 mg by mouth in the morning and at bedtime. metFORMIN (Glucophage) 500 mg tablet every 12 (twelve) hours. potassium chloride ER (Micro-K) 10 mEq ER capsule TAKE 1 CAPSULE BY MOUTH TWICE DAILY WITH FOOD traZODone (Desyrel) 150 mg tablet 1 (one) time each day at the same time. [DISCONTINUED] amLODIPine (Norvasc) 5 mg tablet Take 5 mg by mouth in the morning. No current facility-administered medications on file prior to visit. Physical Exam: Constitutional: Appearance: Normal appearance. Without apparent distress, obese HENT: Head: Normocephalic and atraumatic. Nose: Nose normal. Mouth/Throat: Mouth: Mucous membranes are moist. Eyes: Extraocular Movements: Extraocular movements intact. Conjunctiva/sclera: Conjunctivae normal. Neck: Vascular: No JVD. Cardiovascular: Rate and Rhythm: Normal rate and regular rhythm. Pulses: Dorsalis pedis pulses are 3 on the right side and 3on the left side. Posterior tibial pulses are 3 on the right side and 3 on the left side. Heart sounds: Normal heart sounds, S1 normal and S2 normal. Pulmonary: Effort: Pulmonary effort is normal. Breath sounds: Normal breath sounds. Abdominal: General: Bowel sounds are normal. Palpations: Abdomen is soft. Musculoskeletal: General: Normal range of motion. Cervical back: Normal range of motion. Right lower le-3+ pitting edema. Left lower le-3+ pitting edema. Skin: General: Skin is warm and dry. Capillary Refill: Capillary refill takes less than 2 seconds. Neurological: General: No focal deficit present. Mental Status: he is alert and oriented to person, place, and time. Psychiatric: Mood and Affect: Mood normal. Behavior: Behavior normal. Thought Content: Thought content normal. Judgment: Judgment normal. Labs: 07/06/23 CBC normal K+ 4.0, BUN 6, CR 0.88, GFR > 60 A1C 6.8 Liver function normal Trig 78, Chol 106, HDL 53, LDL 37.4 Last lab values have been reviewed CV Testing: EKG today Sinus rhythm with Rt BBB, no acute concerns TTE 06/14/23 No echocardiogram results found for the past 12 months Assessment/Plan: WILLAMS (dyspnea on exertion) Reports WILLAMS, noted weight gain of 3 pounds since last visit 08/26/23 and he states he is up about 30-40 pounds over the last year. Admits chronic BLE edema and feels like all his cloths are tight- especially around the belly. Stop amlodipine and start aldactone for HTN and fluid retention. Repeat BMP in 1 week to check renal function and electrolytes. Smoker Recommended smoking cessation- pt is not agreeable at this time Hypertension Hypertension is uncontrolled, and with leg swelling/edema asked pt to stop norvasc and start aldactone. Repeat labs in 1 week and to notify office for any concerns/ side effects- muscle cramps, tenderness. Pt does not check b/p at home Bilateral edema of lower extremity Start aldactone and continue lasix 40 mg daily Repeat bmp 1 week RTC 1 month From a cardiology perspective currently pt is not having chest pain/angina and he may proceed with physical therapy. [facility] 08-26-2023 Note New patient here to establish care. Ref from Daina Judge CNP for hypertension. She ordered stress test recently but he was unable to complete it due to inability to lie flat. He smokes 1.5 PPD and drinks about 5 beers daily. Denies chest pain, palpitations, and lightheadedness. Says his LE are always taut and swollen. [facility] 08-26-2023 Note Cardiology Clinic No te Chief Complaint: new patient for HTN HPI: Gianfranco Martin is a 72 y.o. male With a past medical history including hypertension and tobacco abuse. Patient was referred to cardiology for hypertension. Today, patient is unclear why he is at the cardiology office. He was under the understanding that he was going to physical therapy. He denies any cardiac complaints or concerns. Denies any chest pain or shortness of breath. He endorses chronic lower extremity edema. He has not had labs checked for quite some time. Several of his medications were recently discontinued due to hyponatremia. He drinks excessively, approximately 5 drinks per per evening. Patient adamantly denies any chest pain, syncope, LE edema, orthopnea, PND, palps, or bleeding. Patient denies any previous history of CVA, PVD, Depressed LVEF, and CAD. Cardiology ROS: GENERAL: Denies fever, chills, night sweats, weight loss. HEENT: Denies changes in vision, photophobia, changes in hearing, epistaxis, oral bleeding. CARDIOVASCULAR: As per HPI RESPIRATORY: Denies SOB, coughing, wheezing GI: Denies abdominal pain, nausea/vomiting, heartburn, melena/hematochezia. RENAL: Denies dysuria, hematuria, flank pain. MSK: Denies muscle weakness/pain, arthralgias/joint pain. NEUROLOGIC: Denies LOC, weakness, numbness, headaches. SKIN: Denies abnormal rashes or bleeding. PSYCH: Denies significant anxiety, depression, sleep disturbances. Past Medical History He has a past medical history of Hypertension. Surgical History He has a past surgical history that includes Hernia repair and Eye surgery. Social History He reports that he has been smoking cigarettes. He has been smoking an average of 1.5 packs per day. He has never used smokeless tobacco. He reports current alcohol use. No history on file for drug use. Family History Family History Problem Relation Name Age of Onset Coronary artery disease Father Stroke Father Medications Current Outpatient Medications on File Prior to Visit Medication Sig Dispense Refill albuterol 90 mcg/actuation inhaler atenolol (Tenormin) 50 mg tablet Take 1 tablet by mouth once daily for 90 atorvastatin (Lipitor) 10 mg tablet 1 (one) time each day at the same time. busPIRone (Buspar) 10 mg tablet every 12 (twelve) hours. cholecalciferol, vitamin D3, 50 mcg (2,000 unit) capsule Take by mouth. diclofenac (Voltaren) 75 mg EC tablet 1 tablet Orally Twice a day prn for 14 days FLUoxetine (PROzac) 40 mg capsule Take 40 mg by mouth in the morning. furosemide (Lasix) 20 mg tablet Take 20 mg by mouth in the morning. loratadine (Claritin) 10 mg tablet 1 (one) time each day at the same time. losartan (Cozaar) 50 mg tablet Take 50 mg by mouth in the morning and at bedtime. metFORMIN (Glucophage) 500 mg tablet every 12 (twelve) hours. traZODone (Desyrel) 150 mg tablet 1 (one) time each day at the same time. [DISCONTINUED] amLODIPine (Norvasc) 5 mg tablet Take 5 mg by mouth in the morning. No current facility-administered medications on file prior to visit. Allergies Penicillin Physical Exam VITAL SIGNS: BP 154/84 (BP Location: Right arm, Patient Position: Sitting) Pulse 95 Ht 1.753 m (5' 9 ) Wt 101 kg (223 lb) SpO2 97% BMI 32.93 kg/m??? Constitutional: Well developed, Well nourished, No acute distress, Non-toxic appearance. HENT: Normocephalic, Atraumatic, Bilateral external ears have normal appearance, Nose appears normal, nares are patent. Eyes: PERRLA, EOMI, Conjunctiva normal, No discharge. Neck: Normal range of motion, No tenderness, Supple, No stridor. No cervical lymphadenopathy noted. Cardiovascular: Normal heart rate, Normal rhythm, No murmurs, No rubs, No gallops. Thorax & Lungs: Normal breath sounds, No respiratory distress, No wheezing, No chest tenderness to palpation. Abdomen: Bowel sounds normal, Soft, Nontender, No masses, No pulsatile masses. Skin: Warm, Dry, No erythema, No rash. Back: No tenderness, No CVA tenderness. Extremities: Bilateral lower extremity PREETHI, chronic per patient report Musculoskeletal: Grossly normal strength in extremities Neurologic: Alert & oriented x 3, no gross focal neurological deficits Psychiatric: Affect normal, Judgment normal, Mood normal. Impression: -Hypertension -Lower extremity edema -Tobacco abuse -Alcohol abuse Plan: -At this time, patient requires adjustment of his blood pressure medications, including possibly diuretic for lower extremity edema. However, he reportedly had significant lab abnormalities and has not had labs checked recently since discontinuation of other medications. -Will plan on checking BMP today with close follow-up to initiate medication -I have assessed the patient's the importance of smoking cessation and alcohol cessation. I spent 7 minutes discussing. I offered the patient various modes of assistance. Patient declines at this time -Optimize med (more content not included)... [facility] 06-27-2023 Note HNO ID: [id number] Author: Kenyon Angel OD Service: ? Author Type: AMUSEMENT OR RECREATION CARD CHECKER Type: Progress Notes Filed: 06/27/2023 1:37 PM Note Text: (H35.62) Retinal hemorrhage, left eye (primary encounter diagnosis) Comment: 2/2 BRVO - patient is diabetic - Hypertensive Plan: Recommend tight control of BP and glaucoma (H25.11) Nuclear senile cataract of right eye Comment: Mild reduction in vision Plan: Recommend observation for now (Z96.1) Pseudophakia, left eye Comment: IOL stable Open capsule Plan: No treatment indicated (Z86.69) History of retinal detachment left eye Comment: Retinal scar 2/2 surgical repair Plan: No treatment RTC 6 months Dilate and oct MACULA The nature of the patient's eye disease, its relationship to systemic health, its genetic components, and its prognosis have been explained to the patient/family. The treatment options/risks/benefits have been discussed. Questions answered. I have interviewed and examined Gianfranco Martin. I have confirmed and edited as necessary the chief complaint, history of present illness, past medical history, medications, family history, social history, review of systems, and exam findings as obtained by others. I agree with the assessment and plan as stated above,and have discussed them in detail with the patient. Kenyon Angel, OD June 27, 2023 1:37 PM [facility] 06-06-2023 Note HNO ID: [id number] Author: Marquis Weaver, JOEL Service: ? Author Type: AMUSEMENT OR RECREATION CARD CHECKER Type: Progress Notes Filed: 06/06/2023 2:29 PM Note Text: ASSESSMENT/PLAN: 1. Type 2 diabetes mellitus without retinopathy (HCC) - ICD9: 250.00, ICD10: E11.9 (primary diagnosis) Pt does not believe himself to be Diabetic but has taken Metformin x ~ 5 yrs per his historical account Pt to continue care and monitoring with his medical team and return to clinic if any vision changes 2. Retinal hemorrhage, left eye - ICD9: 362.81, ICD10: H35.62 Hypertensive vs TAMIKO Pt ed Continue care with Medical team Pt is not fully informed on his systemic health conditions 2 months repeat Dilated fundus exam. Sooner if vision changes 3. Nuclear sclerotic cataract of right eye - ICD9: 366.16, ICD10: H25.11 Monitor for future Cataract evaluation 4. Pseudophakia, left eye - ICD9: V43.1, ICD10: Z96.1 5. History of YAG laser capsulotomy of lens, left - ICD9: V45.61, ICD10: Z98.42 Stable. Cataract surgery with Dr Gray in 2017 p Retinal detachment surgery Monitor 6. History of retinal detachment - ICD9: V12.49, ICD10: Z86.69 Retina ON and stable s/p Rd repair I have confirmed and edited as necessary the relevant ophthalmic history, ROS, and the exam findings as obtained by others. I have seen and examined this patient. I also have reviewed and agree with the assessment and plan as stated above and agree with all of its relevant components. Marquis Weaver, OD June 06, 2023 2:22 PM [facility] 06-06-2023 History of Present illness Narrative ASSESSMENT/PLAN: 1. Type 2 diabetes mellitus without retinopathy (HCC) - ICD9: 250.00, ICD10: E11.9 (primary diagnosis) Pt does not believe himself to be Diabetic but has taken Metformin x ~ 5 yrs per his historical account Pt to continue care and monitoring with his medical team and return to clinic if any vision changes 2. Retinal hemorrhage, left eye - ICD9: 362.81, ICD10: H35.62 Hypertensive vs TAMIKO Pt ed Continue care with Medical team Pt is not fully informed on his systemic health conditions 2 months repeat Dilated fundus exam. Sooner if vision changes 3. Nuclear sclerotic cataract of right eye - ICD9: 366.16, ICD10: H25.11 Monitor for future Cataract evaluation 4. Pseudophakia, left eye - ICD9: V43.1, ICD10: Z96.1 5. History of YAG laser capsulotomy of lens, left - ICD9: V45.61, ICD10: Z98.42 Stable. Cataract surgery with Dr Gray in 2017 p Retinal detachment surgery Monitor 6. History of retinal detachment - ICD9: V12.49, ICD10: Z86.69 Retina ON and stable s/p Rd repair I have confirmed and edited as necessary the relevant ophthalmic history, ROS, and the exam findings as obtained by others. I have seen and examined this patient. I also have reviewed and agree with the assessment and plan as stated above and agree with all of its relevant components. Marquis Weaver, OD June 06, 2023 2:22 PM documented in this encounter [facility] 10-15-2022 Hospital Discharge instructions Patient Education 10/15/2022 11:16:02 Prostate Cancer Screening Prostate Cancer Screening The prostate is a walnut-sized gland that is located below the bladder and in front of the rectum in males. The function of the prostate (prostate gland) is to add fluid to semen during ejaculation. Prostate cancer is the second most common type of cancer in men. A screening test for cancer is a test that is done before cancer symptoms start. Screening can help to identify cancer at an early stage, when the cancer can be treated more easily. The recommended prostate cancer screening test is a blood test called the prostate-specific antigen (PSA) test. PSA is a protein that is made in the prostate. As you age, your prostate naturally produces more PSA. Abnormally high PSA levels may be caused by: Prostate cancer. An enlarged prostate that is not caused by cancer (benign prostatic hyperplasia, BPH). This condition is very common in older men. A prostate gland infection (prostatitis). Medicines to assist with hair growth, such as finasteride. Depending on the PSA results, you may need more tests, such as: A physical exam to check the size of your prostate gland. Blood and imaging tests. A procedure to remove tissue samples from your prostate gland for testing (biopsy). Who should have screening? Screening recommendations vary based on age. If you are younger than age 40, screening is not recommended. If you are age 40 54 and you have no risk factors, screening is not recommended. If you are younger than age 55, ask your health care provider if you need screening if you have one of these risk factors: ?Being of -[place] descent. ?Having a family history of prostate cancer. If you are age 55 69, talk with your health care provider about your need for screening and how often screening should be done. If you are older than age 70, screening is not recommended. This is because the risks that screening can cause are greater than the benefits that it may provide (risks outweigh the benefits). If you are at high risk for prostate cancer, your health care provider may recommend that you have screenings more often or start screening at a younger age. You may be at high risk if you: Are older than age 55. Are -[place]. Have a father, brother, or uncle who has been diagnosed with prostate cancer. The risk may be higher if your family member's cancer occurred at an early age. What are the benefits of screening? There is a small chance that screening may lower your risk of dying from prostate cancer. The chance is small because prostate cancer is typically a slow-growing cancer, and most men with prostate cancer from a different cause. What are the risks of screening? The main risk of prostate cancer screening is diagnosing and treating prostate cancer that would never have caused any symptoms or problems (overdiagnosis and overtreatment). PSA screening cannot tell you if your PSA is high due to cancer or a different cause. A prostate biopsy is the only procedure to diagnose prostate cancer. Even the results of a biopsy may not tell you if your cancer needs to be treated. Slow-growing prostate cancer may not need any treatment other than monitoring, so diagnosing and treating it may cause unnecessary stress or other side effects. A prostate biopsy may also cause: Infection or fever. A false negative. This is a result that shows that you do not have prostate cancer when you actually do have prostate cancer. Questions to ask your health care provider When should I start prostate cancer screening? What is my risk for prostate cancer? How often do I need screening? What type of screening tests do I need? How do I get my test results? What do my results mean? Do I need treatment? Contact a health care provider if: You have difficulty urinating. You have pain when you urinate or ejaculate. You have blood in your urine or semen. You have pain in your back or in the area of your prostate. You have trouble getting or maintaining an erection (erectile dysfunction, ED). Summary Prostate cancer is a common type of cancer in men. The prostate (prostate gland) is located below the bladder and in front of the rectum. This gland adds fluid to semen during ejaculation. Prostate cancer screening may identify cancer at an early stage, when the cancer can be treated more easily. The prostate-specific antigen (PSA) test is the recommended screening test for prostate cancer. Discuss the risks and benefits of prostate cancer screening with your health care provider. If you are age 70 or older, screening is likely to lead to more risks than benefits (risks outweigh the benefits). This information is not intended to replace advice given to you by your health care provider. Make sure you discuss any questions you have with your health care provider. Document Released: 05/19/2018 Document Revised: 07/21/2018 Document Reviewed: 05/19/2018 [employer] Patient Education 2020 [employer] Follow Up Care 10/05/2022 09:16:20 With:SELENA LEONG, Kashif Reis, URL Address: [address] [place] [phone] When: Unknown [facility] 06-28-2022 Note Chief Complaint Referral-Elevated PSA HPI Staff Evaluation requested by Daina Judge CNP due to elevated PSA. Pt previously seen in our office by Dr Cole due to elevated PSA, discharged in 09/2019 due to no showing to his appt. and not rescheduling. Most recent PSA done 05/21/22 6.8 & 7.1% NEG TRUS BX done 04/[address] Cole. Denies pain, burning and visible blood in urine. Occasional post void dribbling for yrs. Denies all other urinary complaints at this time. History of Present Illness I have reviewed and verified the staff HPI to be accurate for this encounter. Review of Systems PHQ Score Initial Depression Screen Score: 0 ROS - Provider Constitutional: denies weight loss, denies hot flashes. Eyes: denies eye problems. Gastrointestinal: denies nausea, denies vomiting. Cardiovascular: denies chest pain or angina. Integumentary: no dryness Musculoskeletal: denies musculoskeletal symptoms. ENMT: denies otolaryngeal symptoms. Respiratory: no shortness of breath. Heme/Lymph: denies easy bleeding tendency, denies easy bruising tendency. Psychiatric: no confusion, no anxiety. Genitourinary: denies dysuria, denies hematuria, denies discharge, denies urinary frequency, denies urinary hesitancy, denies nocturia, denies incontinence, denies genital sores, denies decreased libido, and denies erectile dysfunction. Physical Exam Vitals & Measurements HR: 74(Peripheral) RR: 16 BP: 140/89 HT: 69 in HT: 176 cm WT: 98 kg WT: 215.6 lb BMI: 31.64 General Appearance: alert, no distress, well nourished, well developed male. Head: normocephalic . Eyes: normal orbit and globe. ENMT: normal examination of external ears. Chest: Lungs CTA, respirations non labored. Cardiovascular: regular rate and rhythm. Abdomen: soft, non distended, no tenderness, no mass or organomegaly, no hernia. Genitourinary: normal scrotum, normal testes, normal urethra, normal epididymis, normal vas deferens/spermatic cord. Flank Pain: none. Bladder: nonpalpable. Penis: normal shaft, normal glans. Prostate: normal prostate, estimated weight 30 gms, no hard nodule observed. Lymph Nodes: unremarkable palpation of the cervical area. Skin: warm, dry, no bruising. Psychiatric: cooperative, affect appropriate for age, normal judgement, euthymic mood. Assessment/Plan 1. Elevated PSA (R97.20: Elevated prostate specific antigen [PSA]) Most recent PSA done 05/21/22 6.8 & 7.1% 05/12/2022 was 8.41 NEG TRUS BX done 04/[address] Cole. Discussed with pt the results of his most recent PSA. Discussed with pt that since his PSA remains elevated, we will get an MRI of the prostate. If there is a suspicious lesion found on the prostate we can move forward with an MRI fusion bx. Pt understands and agrees. 2. Benign prostatic hyperplasia (BPH) with post-void dribbling (N40.1: Benign prostatic hyperplasia with lower urinary tract symptoms) Occasional post void dribbling for yrs. he feels that he voids well and has no difficulties. Overall pt states that his stream is normal , does not feel empty when he is done voiding, denies blood or UTI's. Follow-up With When Contact Information SELENA LEONG, Kashif Reis, URL [facility] [address], [place] [phone] Additional Instructions: pt will f/u based on MRI results Patient Education Benign Prostatic Hyperplasia I, Letitia Moscoso, personally scribed for Dr. Sanches on 06/28/2022 14:12:52. . Documentation recorded by the scribe, Letitia Moscoso, accurately reflects the services(s) I performed and decisions made by me. Problem List/Past Medical History Ongoing Anxiety disorder Benign prostatic hyperplasia (BPH) with post-void dribbling Depression Diabetes Elevated PSA Hypertension Historical No qualifying data Procedure/Surgical History Transrectal biopsy of prostate using ultrasound (US) guidance (2018), Eye implant, Repair of incisional hernia. Medications amLODIPine 5 mg Tab atenolol 50 mg Tab atorvastatin 10 mg Tab busPIRone 5 mg Tab furosemide 20 mg Tab hydrochlorothiazide-losartan 12.5 mg-50 mg Tab loratadine 10 mg Tab metformin 500 mg oral tablet traZODONE 150 mg Tab Allergies penicillin (Unknown skin reaction) Social History Alcohol - High Risk, 08/08/2019 Tobacco 10 or more cigarettes (1/2 pack or more)/day in last 30 days Tobacco Use:. Cigarettes, Yes, 06/28/2022 Family History Hypertension: Mother and Father. Immunizations Vaccine Date Status Comments SARSCoV2 mRNA(vaqvrtbzn-npqn-dyrlvo) vac 03/12/2022 Recorded 2022-06-28: TPV70 SARS-CoV-2 (COVID-19) mRNA BNT-162b2 vax 11/14/2020 Recorded 2022-06-28: TPV70 SARS-CoV-2 (COVID-19) mRNA BNT-162b2 vax 10/24/2020 Recorded 2022-06-28: TPV70 Lab Results Test Name Test Result Date/Time PSA, External 6.8 ng/mL 05/20/2022 08:26 EDT PSA, External 8.41 ng/mL 05/12/2022 08:25 EDT Diagnostic Results Test (more content not included)... [facility] Comment on above: Result Comment: Elec tronically Signed By: Kashif SANCHES MD\.br\Date and Time Signed: 06/28/22 14:16 EST\.br\Electronically Co-Signed By: Letitia Moscoso MA\.br\Date and Time Co-Signed: 06/28/22 14:13 EST 06-28-2022 Hospital Discharge instructions Patient Education 06/28/2022 14:03:18 Benign Prostatic Hyperplasia Benign Prostatic Hyperplasia Benign prostatic hyperplasia (BPH) is an enlarged prostate gland that is caused by the normal aging process and not by cancer. The prostate is a walnut-sized gland that is involved in the production of semen. It is located in front of the rectum and below the bladder. The bladder stores urine and the urethra is the tube that carries the urine out of the body. The prostate may get bigger as a man gets older. An enlarged prostate can press on the urethra. This can make it harder to pass urine. The build-up of urine in the bladder can cause infection. Back pressure and infection may progress to bladder damage and kidney (renal) failure. What are the causes? This condition is part of a normal aging process. However, not all men develop problems from this condition. If the prostate enlarges away from the urethra, urine flow will not be blocked. If it enlarges toward the urethra and compresses it, there will be problems passing urine. What increases the risk? This condition is more likely to develop in men over the age of 50 years. What are the signs or symptoms? Symptoms of this condition include: Getting up often during the night to urinate. Needing to urinate frequently during the day. Difficulty starting urine flow. Decrease in size and strength of your urine stream. Leaking (dribbling) after urinating. Inability to pass urine. This needs immediate treatment. Inability to completely empty your bladder. Pain when you pass urine. This is more common if there is also an infection. Urinary tract infection (UTI). How is this diagnosed? This condition is diagnosed based on your medical history, a physical exam, and your symptoms. Tests will also be done, such as: A post-void bladder scan. This measures any amount of urine that may remain in your bladder after you finish urinating. A digital rectal exam. In a rectal exam, your health care provider checks your prostate by putting a lubricated, gloved finger into your rectum to feel the back of your prostate gland. This exam detects the size of your gland and any abnormal lumps or growths. An exam of your urine (urinalysis). A prostate specific antigen (PSA) screening. This is a blood test used to screen for prostate cancer. An ultrasound. This test uses sound waves to electronically produce a picture of your prostate gland. Your health care provider may refer you to a specialist in kidney and prostate diseases (urologist). How is this treated? Once symptoms begin, your health care provider will monitor your condition (active surveillance or watchful waiting). Treatment for this condition will depend on the severity of your condition. Treatment may include: Observation and yearly exams. This may be the only treatment needed if your condition and symptoms are mild. Medicines to relieve your symptoms, including: ?Medicines to shrink the prostate. ?Medicines to relax the muscle of the prostate. Surgery in severe cases. Surgery may include: ?Prostatectomy. In this procedure, the prostate tissue is removed completely through an open incision or with a laparoscope or robotics. ?Transurethral resection of the prostate (TURP). In this procedure, a tool is inserted through the opening at the tip of the penis (urethra). It is used to cut away tissue of the inner core of the prostate. The pieces are removed through the same opening of the penis. This removes the blockage. ?Transurethral incision (TUIP). In this procedure, small cuts are made in the prostate. This lessens the prostate's pressure on the urethra. ?Transurethral microwave thermotherapy (TUMT). This procedure uses microwaves to create heat. The heat destroys and removes a small amount of prostate tissue. ?Transurethral needle ablation (TUNA). This procedure uses radio frequencies to destroy and remove a small amount of prostate tissue. ?Interstitial laser coagulation (ILC). This procedure uses a laser to destroy and remove a small amount of prostate tissue. ?Transurethral electrovaporization (TUVP). This procedure uses electrodes to destroy and remove a small amount of prostate tissue. ?Prostatic urethral lift. This procedure inserts an implant to push the lobes of the prostate away from the urethra. Follow these instructions at home: Take aqrh-myg-zfakysv and prescription medicines only as told by your health care provider. Monitor your symptoms for any changes. Contact your health care provider with any changes. Avoid drinking large amounts of liquid before going to bed or out in public. Avoid or reduce how much caffeine or alcohol you drink. Give yourself time when you urinate. Keep all follow-up visits as told by your health care provider. This is important. Contact a health care provider if: You have unexplained back pain. Your symptoms do not get better with treatment. You develop side effects from the medicine you are taking. Your urine becomes very dark or has a bad smell. Your lower abdomen becomes distended and you have trouble passing your urine. Get help right away if: You have a fever or chills. You suddenly cannot urinate. You feel lightheaded, or very dizzy, or you faint. There are large amounts of blood or clots in the urine. Your urinary problems become hard to manage. You develop moderate to severe low back or flank pain. The flank is the side of your body between the ribs and the hip. These symptoms may represent a serious problem that is an emergency. Do not wait to see if the symptoms will go away. Get medical help right away. Call your local emergency services (911 in the [place] Do not drive yourself to the hospital. Summary Benign prostatic hyperplasia (BPH) is an enlarged prostate that is caused by the normal aging process and not by cancer. An enlarged prostate can press on the urethra. This can make it hard to pass urine. This condition is part of a normal aging process and is more likely to develop in men over the age of 50 years. Get help right away if you suddenly cannot urinate. This information is not intended to replace advice given to you by your health care provider. Make sure you discuss any questions you have with your health care provider. Document Released: 08/08/2006 Document Revised: 07/03/2019 Document Reviewed: 09/12/2017 [employer] Patient Education 2020 [employer]. Follow Up Care 05/27/2022 15:25:17 With:SELENA LEONG, Kashif Reis, URL Address: [facility] [address], [place] [address]- [phone] When: Unknown [facility] [place] 06-16-2022 History of Present illness Narrative ASSESSMENT/PLAN: 1. 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 The risks, benefits, alternatives, personnel, and possible complications related to yttrium aluminum garnet (YAG) capsulotomy were discussed with the patient. Explained that risks include but are not limited to: increase in intraocular pressure, retinal tears/detachment, dislocation of the intraocular lens, and/or need for further procedures. Retinal detachment warning symptoms were reviewed with patient and he expresses understanding of the need to call and come in if any retinal detachment symptoms occur. Discussed risk of recurrent Posterior capsular opacity with possible need for repeat Yag PC. Discussed the risk of refractive change with the need to update glasses after Yag PC. Patient expresses understanding and elects to proceed with yttrium aluminum garnet (YAG) capsulotomy left eye by Dr. Gray, which was completed today. 2. Pseudophakia, left eye - ICD9: V43.1, ICD10: Z96.1 -S/P PCIOL Left eye (02/07/17) Aim: [place] by Dr. Ana farnsworth; He states that he is happy using OTC readers and declines appt for refraction with card clothier 3. Nuclear senile cataract of right eye - ICD9: 366.16, ICD10: H25.11 He is still happy enough with his vision and opts to follow up with Dr. Gray January 2023 for exam/cataract evaluation 4. History of retinal detachment - left eye - ICD9: V12.49, ICD10: Z86.69 history of retinal detachment repair OS 2007 in [place]. Stable. Call/come in for evaluation immediately if any retinal detachment warning symptoms occur. 5. Epiretinal membrane (ERM) of left eye - ICD9: 362.56, ICD10: H35.372 Normal Amsler Monitor with home Amsler If he ever develops metamorphopsia, then consider referral to a retina specialist for consideration of pars plana vitrectomy with epiretinal membrane peeling to alleviate symptomatic metamorphopsia and help improve vision. 6. Type 2 diabetes mellitus without retinopathy (HCC) - ICD9: 250.00, ICD10: E11.9 -No sign of diabetic retinopathy or clinically significant macular edema in either eye -Controlled on current medications. -Keep blood sugar in low 100s, BP and Cholesterol controlled. -Exercise. -Importance of regular dilated eye exams was stressed. Return to clinic as scheduled 01/2023 for cataract evaluation OD with Dr. Gray or sooner as needed Radha Gray MD The documentation for this note was completed by SENTHIL Ballesteros acting as a scribe for, and in the presence of, Dr. Radha Gray M.D. 06/16/22 The documentation recorded by the scribe accurately reflects the service I personally performed and the decisions made by me. I have confirmed and edited as necessary the relevant ophthalmic history, ROS, and the neuro exam findings as obtained by others. I have seen and examined Gianfranco Martin. I have discussed the case and the management of this patient's care with the Resident/Fellow, if applicable. I also have reviewed and agree with the assessment and plan as stated above and agree with all of its relevant components. Radha Gray MD documented in this encounter [facility] 03-01-2022 History of Present illness Narrative ASSESSMENT/PLAN: 1. 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 Pseudophakia, left eye - ICD9: V43.1, ICD10: Z96.1 Pt has become more observant of diminished vision Left eye since the Posterior capsular opacity was mentioned by Dr Gray Pt has been very concerned that he is losing his OS eyesight since 02/17/2022 He would prefer to return to clinic for YAG evaluation sooner rather than 12 months as planned 3. Nuclear senile cataract of right eye - ICD9: 366.16, ICD10: H25.[address] Radha Gray 4. History of retinal detachment - left eye - ICD9: V12.49, ICD10: Z86.69 5. Epiretinal membrane (ERM) of left eye - ICD9: 362.56, ICD10: H35.372 Stable Monitor 6. Type 2 diabetes mellitus without retinopathy (HCC) - ICD9: 250.00, ICD10: E11.9 The importance of maintaining good glucose control in order to reduce the risks of vision loss from diabetes was discussed. Keep all appropriate follow-ups for diabetic care. The patient was educated regarding the importance of regular EYE examinations and was instructed to call the office immediately if vision changes are noticed. 7. Dermatochalasis of both upper eyelids - ICD9: 374.87, ICD10: H02.831, H02.834 monitor for future lid evaluation I have confirmed and edited as necessary the relevant ophthalmic history, ROS, and the exam findings as obtained by others. I have seen and examined this patient. I also have reviewed and agree with the assessment and plan as stated above and agree with all of its relevant components. Marquis Weaver, JOEL March 01, 2022 4:08 PM documented in this encounter [facility] 02-26-2022 Miscellaneous Notes Called to let patient know we were able to get him an appointment in [place] at 4pm, left message. SENTHIL Ballesteros February 26, 2022 3:[address] Gray and she recommends that he be seen today. Please reach out to Patient to see if we can get appointment. SENTHIL Ballesteros February 26, 2022 2:57 PM documented in this encounter [facility] 02-17-2022 History of Present illness Narrative Assessment/ Plan: 1. Nuclear senile cataract of right eye - ICD9: 366.16, ICD10: H25.11 CORNEAL TOPOGRAPHY: Right eye Less than one diopter, regular Mac OCT: Right eye Normal foveal contour; Left eye stable abnormal foveal contour with mild stable Epiretinal membrane; no Subretinal fluid, no intraretinal fluid in both eyes Signs and symptoms of cataracts were reviewed. Offered cataract surgery when the patient develops functional disability from the cataract. Discussed with him that the risk of cataract surgery would gradually increase the denser his cataract becomes. He qualifies for cataract surgery based on BAT 20/60. The patient remains happy enough with vision that he declines surgery for now. 2. Epiretinal membrane (ERM) of left eye - ICD9: 362.56, ICD10: H35.372 mild, stable, normal Amsler, continue to observe 3. History of retinal detachment - ICD9: V12.49, ICD10: Z86.69 h/o retinal detachment repair OS 2007 in [place]. Stable. Call/come in for evaluation immediately if any retinal detachment warning symptoms occur. 4. Type 2 diabetes mellitus without retinopathy (HCC) - ICD9: 250.00, ICD10: E11.9 -No sign of diabetic retinopathy or clinically significant macular edema in either eye -Controlled on current medications. -Keep blood sugar in low 100s, BP and Cholesterol controlled. -Exercise. -Importance of regular dilated eye exams was stressed. 5. Pseudophakia of left eye -S/P PCIOL Left eye (02/07/17) Aim: [place] by Dr. Gray Signs and symptoms of posterior capsular opacification were reviewed. Discussed possible eventual need for Yag laser posterior capsulotomy. Patient is still happy enough with vision, so declines Yag procedure for now. stable; he remains happy with his vision OS and with OTC readers If he wishes to get new glasses, previously offered an undilated refraction with our optometrists in [place]; he was told that vision with new glasses would not be perfect due to cataract OD; he also has mild PCO OS and Epiretinal membrane OS. He sees a nurse practitioner in [place] Offered for him to establish with a F job superintendent in [place] Return to clinic in 12 months for cataract evaluation OD and possible Yag PC OS with Dr. Gray or sooner if needed. Radha Gray MD The documentation for this note was completed by SENTHIL Mckeon acting as a scribe for, and in the presence of, Dr. Radha Gray M.D. The documentation recorded by the scribe accurately reflects the service I personally performed and the decisions made by me. I have confirmed and edited as necessary the relevant ophthalmic history, ROS, and the neuro exam findings as obtained by others. I have seen and examined Gianfranco Martin. I have discussed the case and the management of this patient's care with the Resident/Fellow, if applicable. I also have reviewed and agree with the assessment and plan as stated above and agree with all of its relevant components. Radha Gray MD 02/17/22 documented in this encounter [facility] Evaluation + Plan note No data available for this section [facility] Evaluation note Diagnosis Nuclear senile cataract of right eye- Primary History of retinal detachment - left eye Personal history of other disorders of nervous system and sense organs Epiretinal membrane (ERM) of left eye Type 2 diabetes mellitus without retinopathy (HCC) Type II or unspecified type diabetes mellitus without mention of complication, not stated as uncontrolled Pseudophakia, left eye Lens replaced by other means [facility] Diagnosis 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, left- Primary Pseudophakia, left eye Lens replaced by other means Nuclear senile cataract of right eye History of retinal detachment - left eye Personal history of other disorders of nervous system and sense organs Epiretinal membrane (ERM) of left eye Type 2 diabetes mellitus without retinopathy (HCC) Type II or unspecified type diabetes mellitus without mention of complication, not stated as uncontrolled Dermatochalasis of both upper eyelids [facility] Diagnosis 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, left- Primary Pseudophakia, left eye Lens replaced by other means Nuclear senile cataract of right eye History of retinal detachment - left eye Personal history of other disorders of nervous system and sense organs Epiretinal membrane (ERM) of left eye Type 2 diabetes mellitus without retinopathy (HCC) Type II or unspecified type diabetes mellitus without mention of complication, not stated as uncontrolled [facility]No assessment [facility] Work Phone: Evaluation note* Diagnosis OPENED IN ERROR- Primary To allow closing an encounter opened in error (used in SmartSet) documented in this encounter [facility] note* Diagnosis Type 2 diabetes mellitus without retinopathy (HCC)- Primary Type II or unspecified type diabetes mellitus without mention of complication, not stated as uncontrolled Retinal hemorrhage, left eye Retinal hemorrhage Nuclear sclerotic cataract of right eye Senile nuclear sclerosis Pseudophakia, left eye Lens replaced by other means History of YAG laser capsulotomy of lens, left History of retinal detachment Personal history of other disorders of nervous system and sense organs [facility] No data available for this section [facility] No data available for this section [facility] Medications Administered Section Active Administered Medications - up to 3 most recent administrations Medication Order MAR Action Action Date Dose Rate Site fluorescein-benoxinate 0.25-0.4 % 1 Drop (FLURESS) 1 Drop, BOTH EYES, DIRECTED, Starting on Tue02/17/22 at 1330, Until Kendra 02/18/22 at 0129, Administer for applanation tonometry. In the event of a Fluress shortage, administer 1 drop of Brandon-Fluor into both eyes as directed for applanation tonometry., [facility] MED ORDERS Given 02/17/2022 1:30 PM EDT 1 Drop tropicamide 1 % 1 Drop (MYDRIACYL) 1 Drop, BOTH EYES, DIRECTED, Starting on Tue02/17/22 at 1330, Until Kendra 02/18/22 at 0129, Administer for dilation, [facility] MED ORDERS Given 02/17/2022 1:30 PM EDT 1 Drop Active Administered Medications - up to 3 most recent administrations Medication Order MAR Action Action Date Dose Rate Site fluorescein-benoxinate 0.25-0.4 % 1 Drop (FLURESS) 1 Drop, BOTH EYES, DIRECTED, Starting on Tue03/01/22 at 1500, Until Tue03/02/22 at 0259, Administer for applanation tonometry. In the event of a Fluress shortage, administer Leanne-Fluor 1 drop into both eyes as directed for applanation tonometry, [facility] MED ORDERS Given 03/01/2022 3:00 PM EDT 1 Drop PHENYLephrine 2.5 % 1 Drop (AK-DILATE, AINSLEY-SYNEPHRINE) 1 Drop, BOTH EYES, DIRECTED, Starting on Tue03/01/22 at 1500, Until Tue03/02/22 at 0259, Administer for dilation PROTECT FROM LIGHT, [facility] MED ORDERS Given 03/01/2022 3:00 PM EDT 1 Drop tropicamide 1 % 1 Drop (MYDRIACYL) 1 Drop, BOTH EYES, DIRECTED, Starting on Tue03/01/22 at 1500, Until Tue03/02/22 at 0259, Administer for dilation, [facility] MED ORDERS Given 03/01/2022 3:00 PM EDT 1 Drop Active Administered Medications - up to 3 most recent administrations Medication Order MAR Action Action Date Dose Rate Site fluorescein-benoxinate 0.25-0.4 % 1 Drop (FLURESS) 1 Drop, BOTH EYES, DIRECTED, Starting on Tue06/06/23 at 1400, Until Tue06/07/23 at 0159, Administer for applanation tonometry. In the event of a Fluress shortage, administer Leanne-Fluor 1 drop into both eyes as directed for applanation tonometry, [facility] MED ORDERS Given 06/06/2023 2:00 PM EDT 1 Drop PHENYLephrine 2.5 % 1 Drop (AK-DILATE, AINSLEY-SYNEPHRINE) 1 Drop, BOTH EYES, DIRECTED, Starting on Tue06/06/23 at 1400, Until Tue06/07/23 at 0159, Administer for dilation PROTECT FROM LIGHT, [facility] MED ORDERS Given 06/06/2023 2:00 PM EDT 1 Drop tropicamide 1 % 1 Drop (MYDRIACYL) 1 Drop, BOTH EYES, DIRECTED, Starting on Tue06/06/23 at 1400, Until Tue06/07/23 at 0159, Administer for dilation, [facility] MED ORDERS Given 06/06/2023 2:00 PM EDT 1 Drop Advance Directives No Advanced Directives Records FoundDocuments on File Type Date Recorded 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 Advance Directive(s) 02/07/2017 9:56 AM Advance Directive Response Recorded Date/ Time Advance Directives No June 11:55am Chief Complaint and Reason for Visit Chief Complaint r97.20 n40.1 Summary Purpose Family History No Family History Records FoundNo Family History Records FoundNo Family History Records FoundNo Family History Records FoundNo Family History Records Found Additional Source Comments Source Comments (unrecognize d section and content) In the event this informatio n is protected by the Federal Confidentiality of Alcohol and Drug Abuse Patient Records regulations: The Federal rules restrict any use of the information to criminally investigate or prosecute any alcohol or drug abuse patient.[facility] the event this information is protected by the Federal Confidentiality of Alcohol and Drug Abuse Patient Records regulations: The Federal rules restrict any use of the information to criminally investigate or prosecute any alcohol or drug abuse patient.[facility] the event this information is protected by the Federal Confidentiality of Alcohol and Drug Abuse Patient Records regulations: The Federal rules restrict any use of the information to criminally investigate or prosecute any alcohol or drug abuse patient.[facility] the event this information is protected by the Federal Confidentiality of Alcohol and Drug Abuse Patient Records regulations: The Federal rules restrict any use of the information to criminally investigate or prosecute any alcohol or drug abuse patient.[facility] the event this information is protected by the Federal Confidentiality of Alcohol and Drug Abuse Patient Records regulations: The Federal rules restrict any use of the information to criminally investigate or prosecute any alcohol or drug abuse patient.[facility] the event this information is protected by the Federal Confidentiality of Alcohol and Drug Abuse Patient Records regulations: The Federal rules restrict any use of the information to criminally investigate or prosecute any alcohol or drug abuse patient.[facility] Reason for Visit (unrecogniz ed section and content) Reason Comments Cataract Follow Up Reason Comments Nuclear senile cataract of right eye Epiretinal membrane (ERM) of left eye 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 Reason Comments YAG Evaluation Reason Comments Opened In Error Reason Comments Pseudophakia Diabetes Care Teams (unrecognized sec tion and content) Director Payment Relationship Specialty Start Date End Date Raul Sun MD PCP - [facility] 02/11/21 Director Payment Relationship Specialty Start Date End Date Raul Sun MD PCP - [facility] 02/11/21 Director Payment Relationship Specialty Start Date End Date Raul Sun MD PCP - [facility] 02/11/21 Director Payment Relationship Specialty Start Date End Date Raul Sun MD PCP - [facility] 02/11/21 Team Status: Inactive Member Role Status Dates Kashif Sanches MD Attending Provider Active AMMY Darling Primary Care Provider Active Team Status: Active Member Role Status Dates Daina Judge NP-C Primary Care Provider Active Director Payment Relationship Specialty Start Date End Date Raul Sun MD PCP - [facility] 02/11/21 Director Payment Relationship Specialty Start Date End Date Raul Sun MD PCP - [facility] 02/11/21 Goals (unrecognized section and content) Goals may be documented in a n alternate section (unrecognized sect ion and content) No Status Records FoundNo Status Records FoundNo Status Records FoundNo Status Records FoundNo Status Records Found INFORMATION SOURCE (unrecogn ized section and content) DATE CREATED AUTHOR 07/29/2022 [facility] DATE CREATED AUTHOR AUTHOR'S ORGANIZ ATION 10/28/2022 [facility] DATE CREATED AUTHOR AUTHOR'S ORGANIZ ATION 12/01/2022 [facility] DATE CREATED AUTHOR AUTHOR'S ORGANIZ ATION 06/28/2023 [facility] DATE CREATED AUTHOR AUTHOR'S ORGANIZ ATION 09/28/2023 [facility] FOR RECORDS PERTAINING TO PATIENTS WHO ARE OR HAVE BEEN ENROLLED IN A CHEMICAL DEPENDENCY/SUBSTANCEABUSE PROGRAM, SOME INFORMATION MAY BE OMITTED. This clinical summary was aggregated from multiple sources. Caution should be exercised in using it in the provision of clinical care. This summary normalizes information from multiple sources, and as a consequence, information in this document may materially change the coding, format and clinical context of patient data. In addition, data may be omitted in some cases. CLINICAL DECISIONS SHOULD BE BASED ON THE PRIMARY CLINICAL RECORDS. [employer] provides no warranty or guarantee of the accuracy or completeness of information in this document.
[2023-10-04 15:55] LABS: Anion Gap 10.7; BUN Creatinine Ratio 8.9; Calcium 8.9 mg/dL (8.5-10.1); Carbon Dioxide 30.4 mmol/L (21.0-32.0); Chloride 100 mmol/L (98-107); Estimated GFR (African America >60 (>=60); Estimated GFR (Non-African Ame >60 (>=60); Glucose 167 mg/dL (74-106); Potassium 5.1 mmol/L (3.5-5.1); Sodium 136 mmol/L (136-145)
== END 2023-10-04 15:15 | disposition home or self-care (01) ==
LOC: LAB 15:16
PROVIDERS: PCP Nurse Practitioner Family; Visit Provider Nurse Practitioner
DX: R06.09 Other forms of dyspnea (principal); R60.0 Localized edema
CPT/HCPCS: 36415; 80048

== ENCOUNTER 2023-10-21 14:17 | Outpatient (OUT) | payer MEDICARE, SELFPAY ==
--- OUTSIDE RECORDS SUMMARY | 2023-10-21 14:39 | XMS_ITS | CCD ---
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 Name Role Phone Raul Sun MD Primary Care Provider [phone] DAINA JUDGE Primary Care Physician MD Kashif Sanches Attending Provider [phone] AMMY Judge Primary Care Provider Daina Judge Primary Care Unavailable Kashif Sanches Attending Unavailable Kashif Sanches Admitting Unavailable SELENA ., DR RHOADES Admitting Unavailable SANCHES ., DR RHOADES Attending Unavailable ALFIE DAINA Primary Care Unavailable SANCHES ., DR RHOADES Consulting Unavailable DAINA JUDGE Admitting Unavailable DAINA JUDGE Attending Unavailable ALFIE, DAINA Primary Care Unavailable ALFIE DAINA Consulting Unavailable ALFIE, DAINA Admitting Unavailable DAINA JUDGE Attending Unavailable ALFIE, [...] Attending Unavailable RAUL SUN Primary Care Unavailable FABRIZIO MACIAS Attending Unavailable MONTSERRAT HA Attending Unavailable Allergies Allergy Classification Reported Allergen(s) Allergy Type Date of Onset Reaction(s) Facility (8 sources) Penicillins; Translations: [PENICILLINS] Drug Allergy 7 Rash [facility] (5 sources) Penicillin; Translations: [penicillin] Drug Allergy 2 Unknown skin reaction [facility] (1 source) Penicillins Drug allergy (disorder) 2 [facility] Repository Medications Current Medications Medication Drug [...] Drug Class(es) Dates Sig (Normalized) Sig (Original) [id number] 200 actuat albuterol 0.09 mg/actuat metered dose [...] Other eye disorders (1 source) History of awfwzui-hgopuwlu-qiz net (YAG) laser capsulotomy of lens; Translations: [...] Test Name Value Interpretation Reference Range Facility 36on 10-06-2023 36 JEANIE Bean MA Labs look good- no concerns= kidney function normal and electrolytes normal Regarding labs done on 10/04/2023 Patient made aware. Normal [facility] 37on 09-21-2023 37 Stop amlodipine- and start spironlactone- 1 tab daily. Have blood work drawn about 1 week after starting this new med to check kidney function and electrolytes. Call office for any concerns Normal [facility] Office Visiton 09-21-2023 Follow-up visit [id number] Gianfranco Martin 1950 M Date Provider Department Center 09/21/2023 120-MONTSERRAT HA JARAD Lepe Family History Problem Relation Age of Onset Coronary artery disease Father Stroke Father Family Status - Relation Status Age at Father Level of Service:78877 ND OFFICE/OUTPATIENT ESTABLISHED MOD MDM 30 MIN Normal [facility] Office Visiton 08-26-2023 Follow-up visit [id number] Gianfranco Martin 1950 M Date Provider Department Center 08/26/2023 3848-FABRIZIO MACIAS JARAD Lepe Family History Problem Relation Age of Onset Coronary artery disease Father Stroke Father Family Status - Relation Status Age at Father Level of Service:23115 ND OFFICE/OUTPATIENT NEW LOW MDM [address] [facility] Patient Letter FTMCon 2022 Patient Letter [facility] November 30, 2022 GIANFRANCO MARTIN [address] [place] [address] GIANFRANCO MARTIN 1950 Dear Gianfranco Martin, Executive [...] Kashif Sanches M.D., F.A.C.S. [facility] [address] [place] [address] Erika [place], [place] [address] , OPTION #3 SENT REGULAR/CERTIFIED MAIL [facility] Coding Summary.on 10-27-2022 Coding Summary. CD:[id number] Gh 0bWw+PGhlYWQ+JV6NRFGuD 32mjWEhtH9mA1MUHWgSZda hIFMNJXnVEiYzktQoVL3ea XNjZXJu IC8+AB4mFEYnLzgmqVPur8 Q7vOR2S08ofs0aVXsibFZ7 MLEuZaVnjxlsq7xixRo8WU cuNmluOyBt UOYaoT77JWZ2pN98Ug04cC FktRPzb5xavXz2GjOuGHVr OLP9sJrtJPcgs7UbKQIlE1 0zbPEzk3G6 ZONdtIsrrHLwSzUoyJM9eN 4aJTvgswoyj8ynzrkjJng6 dw64gECvx9H5iKZ2M5Mvxt L3VRCjiEEz TzdsmZPWlC1qqfdcb3gtiz chXkHjORWnBOt0ZFd9WOXf kLsyUpBwEX94ZCA3XAVppi GvZ9ZnIMUe ySlaPvB3e7W6Lm7KX6GJMh ckI9SZXYLBZGruvGK+PC90 wj13U8RwKxynDah8HWReOC T1nWM5vC7b GJVfALcfh0E5sJP3J2Diyb Nuof2ze4rhCWBkUNylI12c dKCvl8N9ISRkwBK1YDObuE rnZaBthA30 Oyc+BBAcmSnde1VgGvcbp9 sqv4uqdUk8YnwtUQInpcIi hUrwEXO1s4RrOe7dVWGaqE E7sJG9dP5c LjHbIyV4YQawP474GcWrjR FkNohqS02uH8SomLL+PHRy Qgh7FJTmuEgjXV7nX3ZsQQ RpbmctbGVm gOkkCZ8rXWAuldduEBQeiO 2yMJCiE7o3QrWaVcS9CPel S9JmJCSamxyaCf30nO3bIl OcEtZ1SWre I1CltmF2DYCmeZNxFGjiAT D0R91fj4F8LEVlQCMsFAT2 cEZ2oK2tsHcpbrkhdHWecF sgdmVydGlj WBfcSSxaC194XVQicHfnZv NvZGluZyBEYXRlOiAgMDMv MDgvMjAyMzwvdGQ+PHRkIH J6yToiDPWm xSQdLVqiDg2ywDpuvTjoAD 2nWVBnrjeiCAGeaL6yRYWc kSTonNjyHN5kAQHfbcdrg6 97QfXpGAJ8 SIBwmXYfE3FemB6xOpWqGT SrQBEnQ6AgeTMkCCkmI670 AJtdRuY2OHQrgwQsF8ClYT FsaWduOiB0 d4U1Ix7Kr6EcfaxxN1PrfY AqQgUbQygpFXr7T7ZtTauu dHI+AA30ISElFC06VKg1IX P8lHfkFEpr CYSnW7WbdE7sGvTjSMSqIQ RkOyc+PHRhYmxlIHdpZHRo CEkbYHIsCqJlbFuzQX3jAw 9yZGVyLWNv hZyfeXJsKdJvt4keHWSgXU ktAX8oaVgsE5UccVB2HTAa m6s6Gl78W15wQ3GdrFI+PG LtwKC8jDF4 xJ9qMmJdQlM6LZkdM427Ed JroXRmKdoic1tfs1tneIm1 QgU0XWDiozMquRwnBPJ9a7 LzAc69R13z IHdpZHRoPSIxNSUiIHZhbG dofk3tsL2qOc6+PGNvbCB3 lCZ9yN0mXlNrFvI1AWvfG8 49InRvcCIv Hwuvf2uur6bgcYa9HwIsPK FyipSssWzdOFM3y9NmRq30 Z6InaRfqo2UoYzx6eo86kJ Qlj9K2uQB3 D5DoITNbvwiqeGEdzLyhZV 9jYVIpmispFEYqvD3qAYVo J5p6EwOdWoG3IOjlZ1Pmti M7MJXizDGx JVMclAZRgO1idhmox6txmh lbYqTnXEQhAUb4PUs8ZLGd cBnaLmZsNQB7LuC6EJV1wS PgtZ5xsFzc cscffQ1mMpe+QMS0rGGjnT EEAU2sRjnuoKS+PHRkIHN0 tEdiQOqdGMJcrC6cMJXoR2 c6PaXpRaL5 OFnjO9LdjnC5UFWehNMdZC DbsITRoO1qkrqky1qebbzd CyDxQWKyHOv7BDp5RJMelP duOiBsZWZ0 HoR5DQY3yJEprK9pvYuaxu ejwU2lCgu+QmlydGggRGF0 KKi1F5CoScb2OEQfyHdoSX 0ncGFkZGlu Xp0ypCcrgYqlIZ0tAPPzmw azi884CtStg3awECSsdVJs NYhiYIR0F17tf1Z5VBPpRW SuYUU6dKW6 tY1oaAjcccnicDXooGxznh ObkFpuFVelRGdcD632AXPu gOemTkBiWIb1X0BfPqo2FC OvjFyaQC9r pQHnEFjrSe1rwJlimGwwRH 5mTJRyhzbzj039XaCbj6bm WRRnfXDgXSguBID3Z27ko1 H1TEXdILJu PEB4eUC6zP5rsUwsapfqiZ VmdDsgdmVydGljYWwtYWxp Y849RSItkOluAwOlhCd1E7 KaIxl6QZTl nTdmQN5wbSGdRQolAk1azK qalGdmTV7eUKOkxzsxk156 ErBlg7smLGIedSGvFVctVF A0K48di1A5 ORHsHRMdTCH8pLF5rE0kqT lnbjogbGVmdDsgdmVydGlj KRqoXGeqG159FZIomDlxGm BhdGllbnQg BRrnTGb8Z5FmDdizpWO+PC 77GBVoOJ32gCCffACjq4fe nFa6VnIpNLVzLMM3oIiqJJ chx2CdKBPk J25xhTGxu3K9IJQeqMqmkS GbMjByrGX0qH7oSYlsuaan n5yykmjhWlaqy7chri48hY 88W91yZDuy ZHRoPSIzMCUiIHZhbGlnbj 6nxT7kGc2+UZQetHU2xEC0 dU3wDRSxOfX5YKpzG777Oi RvcCIvPjxj x0aao8jpdOk2SiL5PUWfoh AxwVvxAFP1v1KlMb21A59a IHdpZHRoPSIyMCUiIHZhbG kvom7xgF9b Ii8+PSFkhZG5xLM9lW5sSj EoFfF3PKmlC450EgRaxRQa OywuB91gT3MfmMT+PHRyPj f3VHCxtPml QB9hlWIxBKehZh8wGLV6Sx RzZjJtVUzlN7WqKWQsviyq zzergHD1FKFeEDIohG14Gg 9udDogMTBw yPRRwT5kpyzxq3aazwphLj ObSVJeHZe0CZq1YXCesOln DxPsVQQ6LnC7ABB2oXFvjH 1hbGlnbjog uX2uN2XkLBAzfuwyYv18kU 1tNsVvArT1DZazTyy+UFVM CTWBFgldDzpCC2zYGbrqsK Q+PHRkIHN0 hSodXPyhNEPuzR3eJTLcR5 i1FgCwMvT2ABjmZ6HpQFMh mshlNk29kR7oFtOkOvU8WS yzA9TclhV4 EZVtmQRoYWrhKTG0O33tn4 P4BUMqHBJzPZZ9sNV7xP8f bGlnbjogbGVmdDsgdmVydG ljYWwtYWxp H780TKKbsPfxKxC6XdE9Et G0HHB9J3ZdPvp3NIMsjPea KE6msGJbABnmZm8hhYdsyF bgQQ1pFYEv duzwDZZfrB2fJRBrtKFjjZ boRU1eCLMhseugg621SyYv ZMH9EZJyzWHoT8SzoE1eKb AjMDAwMDAw B0NkuKIkEMzdD421SCqwQn F7VHOhzaSuQ7JnZAJpjOve KtQ1o7N7Fv77HiIRVARpji wvdGQ+PHRk ILS9cRqlTWyqRFSamM1sQE OqR6n5KyNlBeW4RJbrE2Lw DYRtylejDd74cM3iPrOmXj A7QImmZ4Cu qzF9PZAenKDtEFafSMN9K8 8ma3B2IVXdXPCmPIH1yNP3 rI8wuUjfgfpxmVOgbEatnv VydGljYWwt SRxkR808KUIkgEgnGt4gkO Y7Y4AbNks6CUIctNguTM6s vTThACvgKm4myTantKqeFP 4wNTBpbjtw GTMssR6nYYIuiJYrnLneSE 4sKRAljcxdq765LwWyTIH6 CTQcvEDkT4GibY8oAgXwOU LuXYGlO8Zn pVNzOHgtW359FPxrBkC3EL VwhoEhI7SaTKQxmXxoLgO1 q1Y0Kt4FTMKxOLMhbHFeQf Y2J9YgFtqn dHI+XY94KKTeAZ12xAWhiJ Lsd5wbeYf4GgTjXCPiPLR7 uEboZDnuh0AuMCNiC67abQ Ptn6N7TOTl uFmxwVNzYqAfrXL2rQ6fPS okmexne0exuptiTfeuy2em xh54xO39N66pYLbcUGKcVK IzMCUiIHZh oCqyrb4wbN6xMe3+PGNvbC X1gCB2hL4zMyDeDxH7ZWlf F970VdAwjSKzRpmvt5hyz7 kbdSe7AaHx ZONvbcNdnAniZHM9j5FuXs 29R70dCZibUYQjZXPyHEDa KFXlpQtfzo1uwE3hJu8+PC 5oh3jiee83 fO00sZH+XOKqPEB8wAtpIJ wtXMEupL3rYYsbOiF8PHZe LgCsrE06nNGhDWhaIq3frF pkiDjpJJ3h BPGtgzazk808TwZdl1ixKD WlwASyCFpeLAA0Y96yp2W0 UVSnZMDrWAW2oXR7zE6rrK lnbjogbGVm dDsgdmVydGljYWwtYWxpZ2 60WPJjgBuuQoXscHJrQ2dc ezLAQR4pWilhoOJ+PHRkIH B8mWzfUEyv LCItpL2iTVSjL9a3GxShPr N6HWouB1VstpD5UAKkdHTc WFRhaJGWnV6fkxzze2dyza ogIzAwMDAw HXn6XFo0NODncEajIhEmJL C1SeU9ZJO7gDMwgE8nfJtc onttgN2qOyz+RklOOjwvdG Q+PHRkIHN0 yCjxGYvqGYUtnF1rHFZdT6 a2ZbRcPmC7IDxeN5WxwqU6 WNMrbFXzAACfhJUNnV6ohp axr6eepfqx DsDkVBBkFSr2QMy0HRWloG uyXsUaEMZ9OqX6CPV8pDIa iK2dzMtizprkbU0rEfh+TV JOOjwvdGQ+ MOSnJOE1nGcpYCxbHLMdnO 0wOJZaY3b5PgApSgO9DXli A3LbdyD5TLXnyPJoHCIdmT RCpO9tylxb l7jrubrmYxNdQSHnDZp1QW m0JATphUzfSfVeBLR7ArD8 TVW9jDPpyJ7kfZhsfkztpM 9wOyc+UGF5 IGP7XG63MG47Y1GwZjdxqP FibGU+PHRhYmxlIHdpZHRo FJivPXJuAbFzaKpjKI9dEd 9yZGVyLWNv bGxh (more content not included)... Normal [facility] Lab Reportson 10-27-2022 Lab Reports [id number]#1.0 0CD:[address] [facility] Ambulatory Visit Summaryon 0 10-15-2022 Ambulatory Visit Summary GIANFRANCO MARTIN :1950 Visit Date:10/15/2022 Ambulatory Visit Instructions Your Diagnosis Elevated PSA Benign prostatic hyperplasia (BPH) with post-void dribbling Tests Performed Urnls Dip Stick Auto w/o Microscopy POC 81402 Your Care Team Attending Physician - SELENA [...] Following Appointments Follow Up with SELENA LEONG, Kashif Reis, URL When: Where: [address] [place] [address]- Medications What When Instructions Unchanged amlodipine (amLODIPine [...] Urnls Dip Stick Auto w/o Microscopy POC 41419 (10/15/2022) Bilirubin Urine Dipstick - Negative Blood Urine Dipstick - Negative Glucose Urine Dipstick - Negative Ketones Urine Dipstick - Negative Leukocytes Urine Dipstick - Negative Nitrite Urine Dipstick - Negative Protein Urine Dipstick - Negative Specific Philipp Urine Dipstick - 1.010 Urine Appearance Urine [...] of these risk factors: ? Being of -[place] descent. ? Having a family history of prostate cancer. ? If you are age 55?69, talk with your health care provider about (more content not included)... Normal [facility] Patient Educationon 10-15-19 23 Patient Education Oncology Prostate Cancer Screening The [...] of these risk factors: ? Being of -[place] descent. ? Having a family history of [...] Are older than age 55. ? Are -Afghan. ? Have a father, brother, or uncle [...] Document R (more content not included)... Normal [facility] Urology Office/Clinic Noteon 10-15-2022 Urology Office/Clinic [...] Contact Information SELENA LEONG, Kashif Reis, URL [address] [place] [address]- Additional Instructions: PSA today - await results [...] Father. Immunizations Vaccine Date Status Comments SARSCoV2 mRNA(milly rosa) vac 03/12/2022 Recorded 2022-06-28: TPV70 SARS-CoV-2 (COVID-19) mRNA BNT-162b2 vax 11/14/2020 Recorded 2022-06-28: TPV70 SARS-CoV-2 (COVID-19) mRNA BNT-162b2 vax 10/24/2020 Recorded 2022-06-28: TPV70 Lab Results Ambulatory Point of Care Results Bilirubin Urine Dipstick: Negative (10/15/22 10:39:00) Blood Urine Dipstick: Negative (10/15/22 10:39:00) Glucose Urine Dipstick: Negative (10/15/22 10:39:00) Ketones Urine Dipstick: Negative (10/15/22 10:39:00) Leukocytes Urine Dipstick: Negativ (more content not included)... Normal [facility] Comment on above: Result Comment: Elec tronically Signed By: Kashif SANCHES MD\.br\Date and Time Signed: 10/15/22 11:23 EST\.br\Electronically Co-Signed By: Dori Wynne\.br\Date and Time Co-Signed: 10/15/22 11:19 EST\.br\Electronically Co-Signed By: Dori Wynne\.br\Date and Time Co-Signed: 10/15/22 11:21 EST Creatinine (Bld) [Mass/Vol]O rdered By: Kashif Sanches on 07-14-2022 Creatinine [Mass/Vol] 0.8 mg/dL 0.6-1.3 [facility] Comment on above: ER/ESD physician is notified/shown all ISTAT results.Critical values may be confirmed by laboratory testing ifdeemed necessary by ER attending doctor. ISTAT XRay CREon 07-14-2022 Creatinine [Mass/Vol] 0.8 mg/dL Normal 0.6-1.3 [facility] Comment on above: Result Comment: ER/E SD physician is notified/shown all ISTAT results. Critical values may be confirmed by laboratory testing if deemed necessary by ER attending doctor. Performed By: #### I SCRE #### [address] Point of Care testing , ISTAT GFR ( > 60 [facility] Comment on above: Result Comment: GFR estimated reference range: According to KDOQI guidelines, <60 ml/min/1.73m2 is sufficient to diagnose a patient with chronic kidney disease. PERFORMED BY: [place] [address] PATHOLOGIST [employer] PROCESSING SUPERVISOR MADELYN LAIRD M.D. Performed By: #### I SCRE #### [address] Point of Care testing , ISTAT GFR (Non- Am > 60 [facility] Comment on above: Performed By: #### I SCRE #### [place] [address] [place] Point of Care testing , No Panel InformationOrdered By: Kashif Sanches on 07-14-2022 POC Estimated GFR > 60 [facility] Comment on above: GFR estimated refere nce range: According to KDOQI guidelines, <60 ml/min/1.73m2 is sufficient to diagnose a patient with chronic kidney disease. POC Estimated GFR Non- Amer > 60 [facility] Pre-Certification Formon Pre-Certification Form [id number]#1.0 0CD:[address] [facility] Lab Reportson 07-05-2022 Lab Reports [id number]#[id number] 0CD:[address] [facility] Physician Referralon 022 Physician Referral [id number]#1.0 0CD:[address] [facility] Ambulatory Visit Summaryon 1 08-28-2021 Ambulatory Visit Summary GIANFRANCO MARTIN :1950 [...] Seo When: Where: [facility] [address] , [place] [phone] Medications What When Instructions Unchanged amlodipine (amLODIPine [...] prostate gland (more content not included)... Normal [facility] Historical Records Officeon 06-28-2022 Historical Records Office [id number]#1. 00CD:[address] [facility] Patient Educationon 06-28-20 Patient Education Urology Benign [...] Follow these instructions at home: ? Take cmuh-ktn-lgunsjh and prescription medicines only as told by [...] You d (more content not included)... Normal [facility] PSA, FREE AND TOTAL RATIOon 05-21-2022 % Free PSA 7.1 % Normal [facility] Comment on above: Result Comment: The table [...] men. Performed By: #### P SAFREE #### [facility] [place] [facility] [address] [place] [address] Dr. Zaira Benoit Prostate specific Ag [Mass/Vol] 6.8 ng/mL Critically high 0.0-4.0 [facility] Comment on above: Result Comment: Bryant woodruff ECLIA methodology. . According to the [place] [employer], Serum PSA should decrease and [...] disease. Performed By: #### P SAFREE #### [facility] [place] [facility] [address] [place] [address] Dr. Zaira Benoit PSA, Free 0.48 ng/mL Normal N/A [facility] Comment on above: Result Comment: Bryant woodruff ECLIA methodology. Performed By: #### P SAFREE #### [facility] [place] [facility] [address] [place] [address] Dr. Zaira Benoit INSULINon 05-13-2022 Insulin 7.8 uIU/mL Normal 2.6-24.9 [facility] Comment on above: Performed By: #### I NSULIN #### [facility] [place] [facility] [address] [place] [address] Dr. Zaira Benoit CBC AUTO DIFFon 05-12-2022 BASO # 0.1 103/ul Normal 0.0-0.1 [facility] Comment on above: Performed By: #### C BC #### [facility] [place] [facility] [address] [place] [address] Dr. Zaira Benoit Basophils/100 WBC (Bld) 0.9 % Normal 0.2-2.0 [facility] Comment on above: Performed By: #### C BC #### [facility] [place] [facility] [address] [place] [address] Dr. Zaira Benoit EO # 0.2 103/ul Normal 0.0-0.7 [facility] Comment on above: Performed By: #### C BC #### [facility] [place] [facility] [address] [place] [address] Dr. Zaira Benoit Eosinophils/100 WBC (Bld) 2.1 % Normal 0.9-7.0 [facility] Comment on above: Performed By: #### C BC #### [facility] [place] [facility] [address] [place] [address] Dr. Zaira Benoit Erythrocyte distribution width (RBC) [Ratio] 13.2 % Normal 11.0-15.0 [facility] Comment on above: Performed By: #### C BC #### [facility] [place] [facility] [address] [place] [address] Dr. Zaira Benoit Hematocrit (Bld) [Volume fraction] 46.6 % Normal 42.0-54.0 [facility] Comment on above: Performed By: #### C BC #### [facility] [place] [facility] [address] [place] [address] Dr. Zaira Benoit Hemoglobin (Bld) [Mass/Vol] 15.5 g/dL Normal 14.0-18.0 [facility] Comment on above: Performed By: #### C BC #### [facility] [place] [facility] [address] [place] [address] Dr. Zaira Benoit IG # 0.02 10e3/ul Normal 0.00-0.03 [facility] [place] [facility] Comment on above: Performed By: #### C BC #### [facility] [place] [facility] [address] [place] [address] Dr. Zaira Benoit IG % 0.3 % Normal 0.0-0.5 [facility] [place] [facility] Comment on above: Performed By: #### C BC #### [facility] [place] [facility] [address] [place] [address] Dr. Zaira Benoit LYMPH # 2.6 103/ul Normal 1.2-3.8 [facility] [place] [facility] Comment on above: Performed By: #### C BC #### [facility] [place] [facility] [address] [place] [address] Dr. Zaira Benoit Lymphocytes/100 WBC (Bld) 36.9 % Normal 20.5-60.0 [facility] Comment on above: Performed By: #### C BC #### [facility] [place] [facility] [address] [place] [address] Dr. Zaira Benoit MANUAL DIFF REQ NO Normal [facility] Comment on above: Performed By: #### C BC #### [facility] [place] [facility] [address] [place] [address] Dr. Zaira Benoit MCH (RBC) [Entitic mass] 33.2 pg Normal 25.9-34.0 [facility] Comment on above: Performed By: #### C BC #### [facility] [place] [facility] [address] [place] [address] Dr. Zaira Benoit MCHC (RBC) [Mass/Vol] 33.3 g/dL Normal 29.9-35.2 [facility] Comment on above: Performed By: #### C BC #### [facility] [place] [facility] [address] [place] [address] Dr. Zaira Benoit MCV (RBC) [Entitic vol] 99.8 fL Critically high 80.0-94.0 [facility] Comment on above: Performed By: #### C BC #### [facility] [place] [facility] [address] [place] [address] Dr. Zaira Benoit MONO # 0.6 103/ul Normal 0.3-0.8 [facility] Comment on above: Performed By: #### C BC #### [facility] [place] [facility] [address] [place] [address] Dr. Zaira Benoit Monocytes/100 WBC (Bld) 9.1 % Normal 1.7-12.0 [facility] Comment on above: Performed By: #### C BC #### [facility] [place] [facility] [address] [place] [address] Dr. Zaira Benoit NEUT # 3.6 103/ul Normal 1.4-6.5 [facility] Comment on above: Performed By: #### C BC #### [facility] [place] [facility] [address] [place] [address] Dr. Zaira Benoit Neutrophils/100 WBC (Bld) 50.7 % Normal 43.0-75.0 [facility] Comment on above: Performed By: #### C BC #### [facility] [place] [facility] [address] [address] [address] Zaira Benoit Platelet mean volume (Bld) [Entitic vol] 9.3 fL Critically low 9.5-13.5 [facility] Comment on above: Performed By: #### C BC #### [facility] [place] [facility] [address] [address] [address] Zaira Benoit PLT 191 103/ul Normal 150-450 [facility] Comment on above: Performed By: #### C BC #### [facility] [address] [address] [address] Zaira Benoit RBC 4.67 106/ul Critically low 4.70-6.10 [facility] Comment on above: Performed By: #### C BC #### [facility] [place] [facility] [address] [address] [address] Zaira Benoit WBC 7.0 103/ul Normal 4.0-11.0 [facility] Comment on above: Performed By: #### C BC #### [facility] [address] [address] [address] Zaira Benoit GLYCOHEMOGLOBIN A1Con 2021 ADA RECOMMENDATION SEE BELOW Normal [facility] Comment on above: Result Comment: ADA RECOMMENDED LIMIT 4.0 - 6.0 ADA THERAPEUTIC TARGET < 7.0 ACTION SUGGESTED > 7.0 Performed By: #### A 1C #### [facility] [address] [place] [address] Dr. Zaira Benoit Glucose [Mass/Vol] 151 mg/dL Normal [facility] Comment on above: Performed By: #### A 1C #### [facility] [address] [address] [address] Zaira Benoit HbA1c (Bld) [Mass fraction] 6.9 % Critically high 4.5-6.2 [facility] Comment on above: Performed By: #### A 1C #### [facility] [address] [place] [address] Dr. Zaira Benoit LIPID PROFILEon 05-12-2022 CHOL-HDL RATIO NORM SEE BELOW Normal [facility] Comment on above: Result Comment: 3.3 - 4.4 LOW RISK 4.4 - 7.1 AVERAGE RISK 7.1 - 11.0 MODERATE RISK >11.0 HIGH RISK Performed By: #### L IPID, URIC, CMP #### [facility] [address] [address] [address] Zaira Benoit Cholesterol [Mass/Vol] 132 mg/dL Normal <=200 [facility] Comment on above: Performed By: #### L IPID, URIC, CMP #### [facility] [address] [address] [address] Zaira Benoit Cholesterol in HDL [Mass/Vol] 53 mg/dL Normal 40-60 [facility] Comment on above: Performed By: #### L IPID, URIC, CMP #### [facility] [address] [address] [address] Zaira Benoit Cholesterol in LDL [Mass/Vol] 59.6 mg/dL Normal [facility] Comment on above: Performed By: #### L IPID, URIC, CMP #### [facility] [address] [address] [address] Zaira Benoit Cholesterol.total/Chol esterol in HDL [Mass ratio] 2.5 {ratio} Normal [facility] Comment on above: Performed By: #### L IPID, URIC, CMP #### [facility] [address] [address] [address] Zaira Benoit HDL NORMAL > or = 60 mg/dl - LO W CARDIOVASCULAR RISK <40 mg/dl - HIGH CARDIOVASCULAR RISK Normal [facility] Comment on above: Performed By: #### L IPID, URIC, CMP #### [facility] [address] [address] [address] Zaira Benoit LDL CALC NORMAL SEE BELOW Normal [facility] Comment on above: Result Comment: <100 mg/dl OPTIMAL 100 - 129 mg/dl NEAR OR ABOVE OPTIMAL 130 - 159 mg/dl BORDERLINE HIGH 160 - 189 mg/dl HIGH >190 mg/dl VERY HIGH Performed By: #### L IPID, URIC, CMP #### [facility] [address] [address] [address] Zaira Benoit Triglyceride [Mass/Vol] 97 mg/dL Normal <=150 [facility] Comment on above: Performed By: #### L IPID, URIC, CMP #### [facility] [address] [address] [address] Zaira Benoit VLDL CALC 19.4 mg/dL Normal [facility] Comment on above: Performed By: #### L IPID, URIC, CMP #### [facility] [address] [address] [address] Zaira Benoit PROF 14(COMP METB)on 022 Albumin [Mass/Vol] 3.9 g/dL Normal 3.4-5.0 [facility] Comment on above: Performed By: #### L IPID, URIC, CMP #### [facility] [address] [address] [address] Zaira Benoit Albumin/Globulin [Mass ratio] 1.1 {ratio} Normal [facility] Comment on above: Performed By: #### L IPID, URIC, CMP #### [facility] [address] [address] [address] Zaira Benoit ALP [Catalytic activity/Vol] 92 U/L Normal 46-116 [facility] Comment on above: Performed By: #### L IPID, URIC, CMP #### [facility] [address] [address] [address] Zaira Benoit ALT [Catalytic activity/Vol] 31 U/L Normal 16-63 [facility] Comment on above: Performed By: #### L IPID, URIC, CMP #### [facility] [address] [address] [address] Zaira Benoit Anion gap [Moles/Vol] 12.2 mmol/L Normal [facility] Comment on above: Performed By: #### L IPID, URIC, CMP #### [facility] [place] [facility] [address] [address] [address] Zaira Benoit AST [Catalytic activity/Vol] 20 U/L Normal 15-37 [facility] Comment on above: Performed By: #### L IPID, URIC, CMP #### [facility] [place] [facility] [address] [address] [address] Zaira Benoit Bilirubin [Mass/Vol] 0.4 mg/dL Normal 0.2-1.0 [facility] Comment on above: Performed By: #### L IPID, URIC, CMP #### [facility] [place] [facility] [address] [place] [address] Dr. Zaira Benoit Calcium [Mass/Vol] 8.8 mg/dL Normal 8.5-10.1 [facility] Comment on above: Performed By: #### L IPID, URIC, CMP #### [facility] [place] [facility] [address] [place] [address] Dr. Zaira Benoit Chloride [Moles/Vol] 101 mmol/L Normal 98-107 [facility] Comment on above: Performed By: #### L IPID, URIC, CMP #### [facility] [place] [facility] [address] [place] [address] Dr. Zaira Benoit CO2 [Moles/Vol] 29.3 mmol/L Normal 21.0-32.0 [facility] Comment on above: Performed By: #### L IPID, URIC, CMP #### [facility] [place] [facility] [address] [place] [address] Dr. Zaira Benoit Creatinine [Mass/Vol] 0.88 mg/dL Normal 0.70-1.30 [facility] Comment on above: Performed By: #### L IPID, URIC, CMP #### [facility] [place] [facility] [address] [place] [address] Dr. Zaira Benoit EGFR-AF KAZAKH >60 Normal >=60 [facility] Comment on above: Performed By: #### L IPID, URIC, CMP #### [facility] [place] [facility] [address] [place] [address] Dr. Zaira Benoit EGFR-NON AF KAZAKH >60 Normal >=60 [facility] Comment on above: Performed By: #### L IPID, URIC, CMP #### [facility] [place] [facility] [address] [place] [address] Dr. Zaira Benoit Globulin (S) [Mass/Vol] 3.6 g/dL Normal [facility] Comment on above: Performed By: #### L IPID, URIC, CMP #### [facility] [place] [facility] [address] [address] [address] Zaira Benoit Glucose [Mass/Vol] 128 mg/dL Critically high 74-106 [facility] Comment on above: Performed By: #### L IPID, URIC, CMP #### [facility] [place] [facility] [address] [place] [address] Dr. Zaira Benoit Potassium [Moles/Vol] 4.5 mmol/L Normal 3.5-5.1 [facility] Comment on above: Performed By: #### L IPID, URIC, CMP #### [facility] [place] [facility] [address] [place] [address] Dr. Zaira Benoit Protein [Mass/Vol] 7.5 g/dL Normal 6.4-8.[address] [facility] Comment on above: Performed By: #### L IPID, URIC, CMP #### [facility] [place] [facility] [address] [place] [address] Dr. Zaira Benoit Sodium [Moles/Vol] 138 mmol/L Normal 136-[address] [facility] Comment on above: Performed By: #### L IPID, URIC, CMP #### [facility] [place] [facility] [address] [place] [address] Dr. Zaira Benoit Urea nitrogen [Mass/Vol] 4.0 mg/dL Critically low 7.0-18.0 [facility] Comment on above: Performed By: #### L IPID, URIC, CMP #### [facility] [place] [facility] [address] [place] [address] Dr. Zaira Benoit Urea nitrogen/Creatinine [Mass ratio] 4.5 mg/mg Normal [facility] Comment on above: Performed By: #### L IPID, URIC, CMP #### [facility] [place] [facility] [address] [place] [address] Dr. Zaira Benoit URIC ACID SERUMon 05-12-2022 Urate [Mass/Vol] 7.5 mg/dL Critically high 3.5-7.2 [facility] Comment on above: Performed By: #### L IPID, URIC, CMP #### [facility] [place] [facility] [address] [address] [address] Zaira Benoit No Panel Information [facility] Vital Signs Date Time Vital Sign Value Performing Clinician Sohail lovett 10-15-2022 10:45-0500 Diastolic blood pressure 79 mm[Hg] Kashif SANCHES [facility] 10-15-2022 10:45-0500 Heart rate 86 /min Kashif SANCHES [facility] 10-15-2022 10:45-0500 Systolic blood pressure 128 mm[Hg] Kashif SANCHES [facility] 06-28-2022 13:37-0500 Blood Pressure Location Kashif SANCHES [facility] 06-28-2022 13:37-0500 Diastolic blood pressure 89 mm[Hg] Kashif SANCHES [facility] 06-28-2022 13:37-0500 Heart rate 74 /min Kashif SANCHES [facility] 06-28-2022 13:37-0500 Respiratory rate 16 /min Kashif SANCHES [facility] 06-28-2022 13:37-0500 Systolic blood pressure 140 mm[Hg] Kashif SANCHES [facility] Encounters Encounter Date Encounter Type Care Provider Facility Start: 09-21-2023 End: 09-21-2023 ambulatory MONTSERRAT HA [facility] Start: 08-26-2023 End: 08-26-2023 ambulatory FABRIZIO MACIAS [facility] Start: 06-27-2023 End: 06-27-2023 ambulatory RAUL SUN Facility:[facility] Start: 06-06-2023 End: 06-06-2023 ambulatory MARQUIS Tovar COLTONDANYCYNTHIA Facility:[facility] Start: 06-06-2023 End: 06-06-2023 Patient encounter procedure Marquis Weaver OD Work Phone: Ophthalmology Comment on above: Type 2 diabetes wil itus without retinopathy (HCC) (Primary Dx); Retinal hemorrhage, left eye; Nuclear sclerotic cataract of right eye; Pseudophakia, left eye; History of YAG laser capsulotomy of lens, left; History of retinal detachment Start: 03-02-2023 ambulatory RADHA GRAY Facility :[facility] Start: 03-02-2023 End: 03-02-2023 Patient encounter procedure Radha Gray MD Work Phone: Ophthalmology Comment on above: OPENED IN ERROR (Jocelyne reji Dx) Start: 10-26-2022 End: 10-27-[address] KASHIF SANCHES . Facility: Start: 10-15-2022 End: 10-16-2022 ambulatory Kashif SANCHES Facility[facility] Start: 10-15-2022 End: 10-16-2022 ambulatory Kashif SANCHES Facility:[facility] Start: 10-15-2022 End: 10-15-2022 Lab Drop off Kashif SANCHES [facility] Start: 10-15-2022 End: 10-15-2022 Patient encounter procedure Kashif SANCHES [facility] Start: 07-14-2022 End: 07-14-2022 ambulatory Daina Judge Facility:[facility] Start: 07-14-2022 End: 07-14-2022 ambulatory STYRENE DEHYDRATION REACTOR OPERATOR-C Daina Judge Work Phone: [facility] Work Phone: Start: 07-14-2022 End: 07-14-2022 Patient encounter procedure STYRENE DEHYDRATION REACTOR OPERATOR-C Daina Alfie Work Phone: [facility] [place] Start: 06-28-2022 End: 06-29-2022 ambulatory Kashif SANCHES Facility:[facility] Start: 06-28-2022 End: 06-28-2022 Patient encounter procedure Kashif SANCHES [facility] Start: 06-16-2022 End: 06-16-2022 Patient encounter procedure Radha Gray MD Work Phone: Ophthalmology Comment on above: After-cataract obscu ring vision, left (Primary Dx); Pseudophakia, left eye; Nuclear senile cataract of right eye; History of retinal detachment - left eye; Epiretinal membrane (ERM) of left eye; Type 2 diabetes mellitus without retinopathy (HCC) Start: 05-20-2022 End: 05-21-2022 ambulatory DAINA JUDGE Facility:[facility] Start: 05-12-2022 End: 05-13-2022 ambulatory DAINA JUDGE Facility:[facility] Start: 03-01-2022 End: 03-01-2022 Patient encounter [...] Performing Clinician Start: 10-26-[address] ZLOTAN SANCHES . Comment on above: Performed By: #### P SAD #### [facility] [address] [place], [place] [id number] Dr. Zaira Benoti Start: 06-16-2022 Post-cataract laser surgery Radha Gray MD Work Phone: Start: 05-12-[address] ZOLTAN SANCHES . Comment on above: Performed By: #### P SASC #### [facility] [place] [facility] [address] [place], [place] [address] Dr. Zaira Benoit Start: 02-17-2022 Computerized ophthal [...] antibody , confirmatory test Dilated Retinal Exam [facility] Start: 06-16-2023 Hepatitis C antibody , confirmatory test DILATED RETINAL EXAM [facility] Start: 04-22-2023 Covid-19 Vaccine () Covid-19 Vaccine () [facility] Start: 04-22-2023 Influenza vaccination [facility] Start: 03-01-2023 Hepatitis C antibody , confirmatory test DILATED RETINAL EXAM [facility] Start: 02-17-2023 Hepatitis C antibody , confirmatory test DILATED RETINAL EXAM [facility] Start: 12-11-2022 COVID-19 VACCINE (5 - Pfizer series) COVID-19 VACCINE (5 - Pfizer series) [facility] Start: 08-22-2022 ADVANCE DIRECTIVE DISCUSSION ADVANCE DIRECTIVE DISCUSSION [facility] Start: 08-22-2022 DEPRESSION ASSESSMENT DEPRESSION ASS ESSMENT [facility] Start: 05-07-2022 COVID-19 VACCINE (4 - Booster for Pfizer series) COVID-19 VACCINE (4 - Booster for Pfizer series) [facility] Start: 04-22-2022 Influenza vaccination C [facility] Start: 08-22-2021 ADVANCE DIRECTIVE DISCUSSION ADVANCE DIRECTIVE DISCUSSION [facility] Start: 08-22-2021 DEPRESSION ASSESSMENT DEPRESSION ASS ESSMENT [facility] Start: 04-16-2021 COVID-19 VACCINE (3 - Booster for Pfizer series) COVID-19 VACCINE (3 - Booster for Pfizer series) [facility] Start: 07-25-2020 COLORECTAL CANCER SCREENING COLORECTAL CANCER SCREENING [facility] Start: 07-25-2020 FECAL OCCULT BLOOD FECAL OCCULT BLOO D [facility] Start: 07-25-2020 Hepatitis B screening URINE AL BUMIN:CREATININE RATIO [facility] Start: 07-25-2020 Hepatitis B surface antibody level LDL CHOLESTEROL [facility] Start: 01-24-2020 Hemoglobin A1c/Hemoglobin.total in Blood HBA1C [facility] Start: 2009 Hepatitis B Vaccine (1 of 3 - Risk 3-dose series) Hepatitis B Vaccine (1 of 3 - Risk 3-dose series) [facility] Start: 11-27-1999 SHINGRIX VACCINE (1 of 2) SHINGRIX V ACCINE (1 of 2) [facility] Start: 1994 COLOGUARD (FIT-DNA) COLOGUARD (FIT-D NA) [facility] Start: 1994 Colonoscopy COLONOSCOPY [facility] Start: [address] COLONOGRAPHY [facility] Start: 1994 SIGMOIDOSCOPY SIGMOIDOSCOPY [facility] Start: 1968 Urine microalbumin profile [facility] Start: 11-27-1967 ANNUAL PCP TEAM TYPE PROOF REPRODUCER GERSON DISEASE VISIT ANNUAL PCP TEAM CHRONIC DISEASE VISIT [facility] Start: 11-27-1967 HEPATITIS C SCREENING HEPATITIS C SC REENING [facility] Start: 1961 Adult depression scr eening assessment DEPRESSION SCREENING [facility] Start: 11-27-1959 3 comp foot exam completed DIABETIC FOOT EXAM [facility] Start: 11-27-1955 Pneumococcal Vaccine : 65+ (1 - PCV) Pneumococcal Vaccine: 65+ (1 - PCV) [facility] Start: 11-27-1955 PNEUMOCOCCAL: 65+ (1 - PCV) PNEUMOCOCCAL: 65+ (1 - PCV) [facility] Start: 1949 ABDOMINAL AORTIC ANE URYSM SCREENING ABDOMINAL [facility] Immunizations Immunization Date Immunization Notes Care Provider Rosalind kvngjeevan 03-12-2022 SARS-CoV-2 mRNA (rxvbrjjwuwm-shfh-snlpg se) vaccine Kashif SANCHES [facility] Comment on above: Result Comment: 2021: TPV70 11-14-2020 COVID-19 vaccine, ag e 12+ yr (PFIZER-BIONTECH - PURPLE TOP) Radha Grya MD Work Phone: [facility] Comment on above: Result Comment: 2021: TPV70 10-24-2020 COVID-19 vaccine, ag e 12+ yr (PFIZER-BIONTECH - PURPLE TOP) Radha Gray MD Work Phone: [facility] Comment on above: Result Comment: 2021: TPV70 Payers Date Payer Category Payer Self-pay 2017 Unknown [employer] S [employer] BL[employer] SHIELD [employer] O [id number] 2017-Present [phone] [id number] O [id number] 2017 Unknown [employer] S [employer] BL[employer] SHIELD [employer] HMO [id number] 2017-Present [phone] [address] [place] [id number] O [id number] 1959 Medicare [id number] 1950 Unknown [id number] 1949 Unknown [id number] 1949 Unknown [id number] 1949 Unknown [id number] 1949 Unknown [id number] 1949 Unknown [id number] Medicare Medicare [id number] Unknown [id number] Social History Date Type Detail Facility Start: 11-03-2016 End: 06-16-2022 Tobacco smoking status NHIS Smokes tobacco daily [facility] History of tobacco use Cigarette Smoker C [facility] Start: 11-03-2016 End: 03-02-2023 Cigarettes smoked current (pack per day) - Reported 1 [facility] Start: 11-03-2016 End: 06-16-2022 Tobacco use and exposure Smokeless tobacco non-user [facility] Start: 02-17-2022 End: 06-06-2023 Alcohol intake Current drinker of alcohol (finding) [facility] Start: 11-20-2018 History SDOH Alcohol Comment per day [facility] Start: 1950 Sex Assigned At Not on file C [facility] Start: 06-28-2022 End: 10-15-2022 Tobacco smoking status Heavy tobacco smoker (finding) [facility] [place] [facility] [place] Start: 06-16-2022 End: 03-02-2023 [facility] Assigned At Male [facility] Start: 1950 Sex Assigned At Male F [facility] National Score (1-10 0), lower number is lower risk 87 [facility] Medical Equipment Procedure Code Equipment Code Equipment Origin al Text Equipment Identifier Dates Lens Acrysof Iq +19.5 Diopter Natural Stableforce 0 D Biconvex 118.7 - [id number] Start: 02-07-2017 Functional Status Date Assessment Result Facility 10-15-2022 Functional Status N/A [facility] 06-28-2022 Functional Status N/A [facility] Clinical Notes 02-17-2022 to 09-21-2023 Marquis Weaver, OD - 06/06/2023 2:21 PM Lianet Gray MD - 06/16/2022 1:52 PM Annie Weaver, JOEL - 03/01/2022 4:08 PM Lianet Gray MD - 02/17/2022 2:03 PM EDT Note Date & Type Note Facility 09-21-2023 Note Start aldactone and continue lasix 40 mg daily Repeat bmp 1 week [facility] 09-21-2023 Note Hypertension is unco ntrolled, and with leg swelling/edema asked pt to stop norvasc and start aldactone. Repeat labs in 1 week and to notify office for any concerns/ side effects- muscle cramps, tenderness. Pt does not check b/p at home [facility] 09-21-2023 Note Recommended smoking cessation- pt is not agreeable at this time [facility] 09-21-2023 Note Reports WILLAMS, noted w eight [...] week to check renal function and electrolytes. [facility] 09-21-2023 Note [facility] CARDIOLOGY PROGR ESS NOTE [...] and he may proceed with physical therapy. [facility] 09-21-2023 Note Patient here for car diac [...] All other systems reviewed and are negative. [facility] 08-26-2023 Note New patient here to establish care. Ref from Daina Judge CNP for hypertension. She ordered stress test recently but he was unable to complete it due to inability to lie flat. He smokes 1.5 PPD and drinks about 5 beers daily. Denies chest pain, palpitations, and lightheadedness. Says his LE are always taut and swollen. [facility] 08-26-2023 Note Cardiology Clinic No te Chief [...] time -Optimize med (more content not included)... [facility] 06-27-2023 Note HNO ID: [id number] Author: Kenyon Angel OD Service: ? Author Type: SHEET ROCK NAILER Type: Progress Notes Filed: 06/27/2023 1:37 PM [...] Angel, OD June 27, 2023 1:37 PM [facility] 06-06-2023 Note HNO ID: [id number] Author: Marquis Weaver OD Service: ? Author Type: SHEET ROCK NAILER Type: [place] Notes Filed: 06/06/2023 2:29 PM [...] Weaver, OD June 06, 2023 2:22 PM [facility] 06-06-2023 History of Present illness Narrative [...] 2023 2:22 PM documented in this encounter [facility] 10-15-2022 Hospital Discharge instructions Patient Education [...] one of these risk factors: ?Being of -[place] descent. ?Having a family history of prostate [...] you: Are older than age 55. Are -[place]. Have a father, brother, or uncle who [...] 05/19/2018 Document Revised: 07/21/2018 Document Reviewed: 05/19/2018 [employer] Patient Education 2020 [employer]. Follow Up Care 10/05/2022 09:16:20 With:SELENA LEONG, Kashif Reis, URL Address: [address] [place] [address]- When: Unknown [facility] Valentina 06-28-2022 Note Chief Complaint Referral-Elevated PSA HPI [...] [facility] [address], [place] [phone] Additional Instructions: pt will f/u based on MRI results Patient Education Benign Prostatic Hyperplasia ILetitia, personally scribed for Dr. Sanches on 06/28/2022 14:12:52. . Documentation recorded by the annibLetitia woodruff, accurately reflects the services(s) I performed and decisions made by me. Problem List/Past Medical History Ongoing Anxiety disorder Benign prostatic hyperplasia (BPH) with post-void dribbling Depression Diabetes Elevated PSA Hypertension Historical No qualifying data Procedure/Surgical History Transrectal biopsy of prostate using ultrasound (US) guidance (2019), Eye implant, Repair of incisional hernia. Medications [...] Father. Immunizations Vaccine Date Status Comments SARSCoV2 mRNA(zythvpjzo-ppft-ozsefw) vac 03/12/2022 Recorded 2022-06-28: TPV70 SARS-CoV-2 (COVID-19) mRNA BNT-162b2 vax 11/14/2020 Recorded 2022-06-28: TPV70 SARS-CoV-2 (COVID-19) mRNA BNT-162b2 vax 10/24/2020 Recorded 2022-06-28: TPV70 Lab Results Test Name Test Result Date/Time PSA, External 6.8 ng/mL 05/20/2022 08:26 EDT PSA, External 8.41 ng/mL 05/12/2022 08:25 EDT Diagnostic Results Test (more content not included)... [facility] Comment on above: Result Comment: Elec tronically [...] urethra. Follow these instructions at home: Take urze-fgp-whfbhae and prescription medicines only as told by [...] 08/08/2006 Document Revised: 07/03/2019 Document Reviewed: 09/12/2017 [employer] Patient Education 2020 [employer]. Follow Up Care 05/27/2022 15:25:17 With:SELENA LEONG, Kashif Reis, URL Address: [facility] [address] [place] [address]- [phone] When: Unknown [facility] 06-16-2022 History of Present illness Narrative ASSESSMENT/PLAN: [...] Z96.1 -S/P PCIOL Left eye (02/07/17) Aim: [place] by Dr. Ana farnsworth; He states that he is happy using OTC readers and declines appt for refraction with electrical prospecting observer 3. Nuclear senile cataract of right eye - ICD9: 366.16, ICD10: H25.11 He is still happy enough with his vision and opts to follow up with Dr. Gray January 2023 for exam/cataract evaluation 4. History of retinal detachment - left eye - ICD9: V12.49, ICD10: Z86.69 history of retinal detachment repair OS 2007 in [place]. [place]. Call/come in for evaluation immediately if any [...] Radha Gray MD documented in this encounter [facility] 03-01-2022 History of Present illness Narrative [...] of its relevant components. Marquis Weaver, OD March 01, 2022 4:08 PM documented in this encounter [facility] 02-26-2022 Miscellaneous Notes Called to let patient know we were able to get him an appointment in [place] at 4pm, left message. SENTHIL Ballesteros February 26, 2022 3:[address] Gray and she recommends that he be seen today. Please reach out to Patient to see if we can get appointment. SENTHIL Ballesteros February 26, 2022 2:57 PM documented in this encounter [facility] 02-17-2022 History of Present illness Narrative [...] h/o retinal detachment repair OS 2007 in [place]. Stable. Call/come in for evaluation immediately if [...] eye -S/P PCIOL Left eye (02/07/17) Aim: [place] by Dr. Gray Signs and symptoms of posterior capsular opacification were reviewed. Discussed possible eventual need for Yag laser posterior capsulotomy. Patient is still happy enough with vision, so declines Yag procedure for now. stable; he remains happy with his vision OS and with OTC readers If he wishes to get new glasses, previously offered an undilated refraction with our optometrists in [place]; he was told that vision with new glasses would not be perfect due to cataract OD; he also has mild PCO OS and Epiretinal membrane OS. He sees a nurse practitioner in [place] Offered for him to establish with a F md physician dermatologist in [place] Return to clinic in 12 months for [...] Gray MD 02/17/22 documented in this encounter [facility] Evaluation + Plan note No data available for this section [facility] Evaluation note Diagnosis Nuclear senile cataract of [...] by other means [facility] Diagnosis 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, left- [...] both upper eyelids documented in this encounter [facility] note* Diagnosis 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, left- Primary [...] stated as uncontrolled documented in this encounter [facility] noteNo assessment information [facility] Work Phone: Evaluation note* Diagnosis OPENED IN ERROR- Primary To allow closing an encounter opened in error (used in SmartSet) documented in this encounter [facility] note* Diagnosis Type 2 diabetes mellitus without [...] and sense organs documented in this encounter [facility] Discharge instructions No data available for this section [facility] No data available for this section [facility] Medications Administered Section Active Administered Medications - up to 3 most recent administrations Medication Order MAR Action Action Date Dose Rate Site fluorescein-benoxinate 0.25-0.4 % 1 Drop (FLURESS) 1 Drop, BOTH EYES, DIRECTED, Starting on Tue02/17/22 at 1330, Until Kendra 02/18/22 at 0129, Administer for applanation tonometry. In the event of a Fluress shortage, administer 1 drop of Leanne-Fluor into both eyes as directed for applanation tonometry., [facility] MED ORDERS Given 02/17/2022 1:30 PM EDT 1 Drop tropicamide 1 % 1 Drop (MYDRIACYL) 1 Drop, BOTH EYES, DIRECTED, Starting on Tue02/17/22 at 1330, Until Tue02/18/22 at 0129, Administer for dilation, [facility] [...] FoundDocuments on File Type Date Recorded Patient Rehabilitation Aide Expl anation Advance Directive(s) 02/07/2017 9:56 AM [...] or prosecute any alcohol or drug abuse patient.[facility] the event this information is protected by the Federal Confidentiality of Alcohol and Drug Abuse Patient Records regulations: The Federal rules restrict any use of the information to criminally investigate or prosecute any alcohol or drug abuse patient.[facility] Hospital[facility] the event this information is protected by the Federal Confidentiality of Alcohol and Drug Abuse Patient Records regulations: The Federal rules restrict any use of the information to criminally investigate or prosecute any alcohol or drug abuse patient.[facility] Hospital[facility] the event this information is protected by the Federal Confidentiality of Alcohol and Drug Abuse Patient Records regulations: The Federal rules restrict any use of the information to criminally investigate or prosecute any alcohol or drug abuse patient.[facility] HospitalIn the event this information is protected by the Federal Confidentiality of Alcohol and Drug Abuse Patient Records regulations: The Federal rules restrict any use of the information to criminally investigate or prosecute any alcohol or drug abuse patient.[facility] HospitalIn the event this information is protected by the Federal Confidentiality of Alcohol and Drug Abuse Patient Records regulations: The Federal rules restrict any use of the information to criminally investigate or prosecute any alcohol or drug abuse patient.[facility] Reason for Visit (unrecogniz ed section and content) Reason Comments Cataract Follow Up Reason Comments Nuclear senile cataract of right eye Epiretinal membrane (ERM) of left eye 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 Reason Comments YAG Evaluation Reason Comments Opened In Error Reason Comments Pseudophakia Diabetes Care Teams (unrecognized sec tion and content) Agricultural Equipment Sales Engineer Relationship Specialty Start Date End Date Raul Sun MD PCP - General Family Practice 02/11/21 Agricultural Equipment Sales Engineer Relationship Specialty Start Date End Date Raul Sun MD PCP - [facility] 02/11/21 Agricultural Equipment Sales Engineer Relationship Specialty Start Date End Date Raul Sun MD PCP - General Family Practice 02/11/21 Agricultural Equipment Sales Engineer Relationship Specialty Start Date End Date Raul Sun MD PCP - General Family Medicine 02/11/21 Team Status: Inactive Member Role Status Dates Kashif Sanches MD Attending Provider Active Daina Judge NP-[place] Primary Care Provider Active Team Status: Active Member Role Status Dates Daina Judge NP-[place] Primary Care Provider Active Agricultural Equipment Sales Engineer Relationship Specialty Start Date End Date Raul Sun MD PCP - General Family Medicine 02/11/21 Agricultural Equipment Sales Engineer Relationship Specialty Start Date End Date Raul Sun MD PCP - General Family Medicine 02/11/21 Goals (unrecognized section and content) Goals may be documented in a n alternate section (unrecognized sect ion and content) No Status Records FoundNo Status Records FoundNo Status Records FoundNo Status Records FoundNo Status Records Found INFORMATION SOURCE (unrecogn ized section and content) DATE CREATED AUTHOR 07/29/2022 [facility] DATE CREATED AUTHOR AUTHOR'S ORGANIZ ATION 10/28/2022 [facility] DATE CREATED AUTHOR AUTHOR'S ORGANIZ ATION 12/01/2022 [facility] DATE CREATED AUTHOR AUTHOR'S ORGANIZ ATION 06/28/2023 [facility] DATE CREATED AUTHOR AUTHOR'S ORGANIZ ATION 10/08/2023 [facility] FOR RECORDS PERTAINING TO PATIENTS WHO ARE [...] BE BASED ON THE PRIMARY CLINICAL RECORDS. [facility] [employer] [facility]. provides no warranty or guarantee of the accuracy or completeness of information in this document.
[2023-10-22 04:07] LABS: PSA, Free 0.54 ng/mL; Prostate Specific Ag 9.8 ng/mL (0.0-4.0)
== END 2023-10-21 14:18 | disposition home or self-care (01) ==
LOC: LAB 14:18
PROVIDERS: PCP Nurse Practitioner Family; Visit Provider Nurse Practitioner Family
DX: R97.20 Elevated prostate specific antigen [PSA] (principal)
CPT/HCPCS: 36415; 84153; 84154

== ENCOUNTER 2023-11-21 12:55 | Outpatient (OUT) | payer MEDICARE, SELFPAY ==
--- OUTSIDE RECORDS SUMMARY | 2023-11-21 13:10 | XMS_ITS | CCD ---
Author Organization [facility] Care Team Providers Care Online Retailer Name Role Phone Raul Sun MD Primary Care Provider DAINA JUDGE Primary Care Physician MD Jf Sanches Attending Provider [phone] AMMY Judge Primary Care Provider Daina Judge Primary Care Unavailable Jf Sanches Attending Unavailable Jf Sanches Admitting Unavailable SANCHES ., DR RHOADES Admitting Unavailable SANCHES ., DR RHOADES Attending Unavailable ALFIE DAINA Primary Care Unavailable SANCHES ., DR RHOADES Consulting Unavailable ALFIE DAINA Admitting Unavailable ALFIE DAINA Attending Unavailable ALFIE, DAINA Primary Care Unavailable ALFIE DAINA Consulting Unavailable ALFIE DAINA Admitting Unavailable DAINA JUDGE Attending Unavailable ALFIE, DAINA Primary Care Unavailable DAINA JUDGE Consulting Unavailable Jf SANCHES R Attending Unavailable Jf SANCHES R Attending Unavailable DAINA JUDGE S Referring Unavailable Jf SANCHES Attending Unavailable Jf SANCHES Admitting Unavailable Raul Sun MD Primary Care Provider MONTSERRAT HA Attending Unavailable MONTSERRAT HA Attending Unavailable FABRIZIO MACIAS Attending Unavailable Alfie BOSCH, Daina S Unavailable RAUL SUN Primary Care Unavailable ALE HICKMAN Attending Unavailable KENYON ANGEL Attending Unavailable RAUL SUN Primary Care Unavailable RAUL SUN Primary Care Unavailable MARQUIS WEAVER Attending Unavaila KRISSY Roberts Referring Unavailable RAUL SUN Primary Care Unavailable KRISSY GRAY Attending Unavailable Allergies Allergy Classification Reported Allergen(s) Allergy Type Date of Onset Reaction(s) Facility (9 sources) Penicillins; Translations: [PENICILLINS] Drug Allergy 7 Rash [facility] (5 sources) Penicillin; Translations: [penicillin] Drug Allergy 2 Unknown skin reaction [facility] (1 source) Penicillins Drug allergy (disorder) 2 [facility] (1 source) amLODIPine; Translations: [AMLODIPINE] Drug Allergy 4 [facility] Repository Medications Current Medications Medication Drug Class(es) [...] / losartan potassium 50 mg oral tablet (10 sources) Thiazide Diuretic, Angiotensin 2 Receptor Rosie Start: 06-28-2022 hydrochlorothiazide-losartan 12.5 mg-50 mg Tab Refill(s) 0 Start Date: 06/28/22 Status: Ordered Start: 11-02-2018 losartan-hydro chlorothiazide (HYZAAR) 50-12.5 mg per tablet loratadine 10 mg oral tablet (10 sources) Start: 06-28-2022 take 3 tablets by [...] AINSLEY-SYNEPHRINE) traZODone hydrochloride 150 mg oral tablet (10 sources) Serotonin Reuptake Inhibitor Start: 06-28-2022 traZODONE [...] Drug Class(es) Dates Sig (Normalized) Sig (Original) [id number] actuat albuterol 0.09 mg/actuat metered dose inhaler (2 sources) beta2-Adrenergic Agonist Start: 04-17-2023 albuterol HFA (PROVENTIL HFA, VENTOLIN HFA) 90 mcg/actuation inhaler amLODIPine 5 mg oral tablet (10 sources) Dihydropyridine Calcium Channel Rosie Start: 01-14-2021 take 1 tablet by mouth once daily amLODIPine (NORVASC) 5 mg tablet Take 5 mg by mouth once daily. 0 01/14/2021 Active Comment on above: Take 5 mg by mouth o nce daily. atenolol 50 mg oral tablet (10 sources) beta-Adrenergic Rosie Start: 11-02-2018 atenolol (TENORMIN) 50 mg tablet atorvastatin 10 mg oral tablet (10 sources) HMG-CoA Reductase Inhibitor Start: 02-01-2022 atorvastatin (LIPITOR) 10 mg tablet busPIRone hydrochloride 5 mg oral tablet (10 sources) Start: 11-02-2018 busPIRone (BUSPAR) 5 mg tablet cholecalciferol 0.05 mg oral capsule (7 sources) Vitamin D Cholecalciferol, Vitamin D3, 50 mcg (2,000 unit) cap Take by mouth. 0 Active Cholecalciferol, Vitamin D3, (VITAMIN D-3) 2,000 unit cap Take by mouth. 0 Active Comment on above: Take by mouth. diclofenac sodium 75 mg delayed release oral tablet (1 source) Nonsteroidal Anti-inflammatory Drug Start: 10-09-19 24 take 1 tablet by mouth every twelve hours diclofenac, EC, (VOLTAREN) 75 mg EC tablet Take 1 tablet by mouth every 12 hours. 0 10/09/2023 Active Comment on above: Take 1 tablet by alejandra th every 12 hours. doxycycline hyclate 50 mg oral capsule (7 sources) Tetracycline-class Drug Start: 01-26-20 22 take 1 capsule by mouth once daily doxycycline (VIBRAMYCIN) 50 mg capsule Take 50 mg by mouth once daily. 0 01/25/2022 Active Comment on above: Take 50 mg by mouth once daily. FLUoxetine 40 mg oral capsule (7 sources) Serotonin Reuptake Inhibitor take 1 capsule by mouth once daily FLUoxetine HCl (PROZAC) 40 mg capsule Take 40 mg by mouth once daily. 0 Active Comment on above: Take 40 mg by mouth once daily. furosemide 20 mg oral tablet (10 sources) Loop Diuretic Start: 11-03-19 19 furosemide (LASIX) 20 mg tablet metFORMIN hydrochloride 500 mg oral tablet (10 sources) Biguanide Start: 11-03-19 19 metFORMIN (GLUCOPHAGE) 500 mg tablet Minocycline (7 sources) Tetracycline-class Drug MINOCYCLINE HCL (MINOCYCLINE ORAL) Take by mouth. 0 Active Comment on above: Take by mouth. naltrexone hydrochloride 50 mg oral tablet (7 sources) Opioid Antagonist Start: 11-03-19 19 naltrexone (TREXAN) 50 mg tablet potassium chloride 10 meq extended release oral capsule (1 source) Start: 09-08-19 24 potassium chloride SR (MICRO-K) 10 mEq CR capsule Take 10 mEq by mouth two times a day. Take with food 0 09/08/2023 Active Comment on above: Take 10 mEq by mouth two times a day. Take with food spironolactone 25 mg oral tablet (1 source) Aldosterone Antagonist Start: 09-21-19 take 1 tablet by mouth once daily in the morning spironolactone (ALDACTONE) 25 mg tablet Take 25 mg by mouth every morning. 0 09/21/2023 Active Comment on above: Take 25 mg by mouth every morning. Problems Active Problems Problem Classification Problem Date Documented Date Episodic/Chronic Anxiety disorders (3 sources) Anxiety disorder 08-08-2019 Chronic Cataract (20 sources) Nuclear senile cataract; Translations: [Age-related nuclear cataract, right eye] Onset: 11-10-2016 Chronic Cataract (1 source) Cataract Onset: 03-02-2023 Diabetes mellitus without complication (19 sources) Diabetes mellitus type 2 without retinopathy; Translations: [Type 2 diabetes mellitus without complications] Onset: 02-11-2021 Chronic Disorders of lipid metabolism (1 source) Hyperlipidemia, unspecified; Translations: [HYPERLIPIDEMIA UNSPECIFIED] Onset: 05-24-2022 Chronic Essential hypertension (5 sources) Hypertensive disorder; Translations: [Essential (primary) hypertension] Onset: 08-26-2023 08-08-2019 Chronic Hyperplasia of prostate (6 sources) Benign prostatic hypertrophy with outflow obstruction; Translations: [Benign prostatic hyperplasia with lower urinary tract symptoms] Onset: 06-28-2022 Chronic Mood disorders (3 sources) Depressive disorder 08-08-2019 Chronic Other eye disorders (7 sources) Chorioretinal scar of left eye; Translations: [Unspecified chorioretinal scars, left eye] Onset: 11-10-2016 11-10-2016 Chronic Other eye disorders (1 source) History of lknnnks-pgjgewof-ays net (YAG) laser capsulotomy of lens; Translations: [Cataract extraction status, left eye] 06-06-2023 Episodic Other lower respiratory disease (2 sources) Other forms of dyspnea; Translations: [Other forms of dyspnea] Onset: 09-21-2023 Episodic Other screening for suspected conditions (not mental disorders or infectious disease) (13 sources) Raised prostate specific antigen; Translations: [Elevated prostate specific antigen [PSA]] Onset: 05-24-2022 Episodic Residual codes; unclassified (2 sources) Localized edema; Translations: [Localized edema] Onset: 09-21-2023 Episodic Retinal detachments; defects; vascular occlusion; and retinopathy (12 sources) Epiretinal membrane of left eye; Translations: [Puckering of macula, left eye] Onset: 11-10-2016 Chronic Unclassified (1 source) OPENED IN ERROR 03-03-2023 Unclassified (1 source) Patient's noncompliance with other medical treatment and regimen due to unspecified reason; Translations: [Patient's noncompliance with other medical treatment and regimen due to unspecified reason] Onset: 08-26-2023 Past or Other Problems Problem Classification Problem Date Documented Date Episodic/Chronic Diabetes mellitus without complication (1 source) Other abnormal glucose; Translations: [OTHER ABNORMAL GLUCOSE] Onset: 05-24-2022 Episodic Inflammation; infection of eye (except that caused by tuberculosis or sexually transmitteddisease) (7 sources) Blepharitis of upper and lower eyelids of bilateral eyes; Translations: [Unspecified blepharitis right eye, upper and lower eyelids] Onset: 11-10-2016 11-10-2016 Episodic Other eye disorders (5 sources) Excess skin of eyelid; Translations: [Dermatochalasis of right upper eyelid] Onset: 11-10-2016 11-10-2016 Episodic Other eye disorders (3 sources) Dermatochalasis of right upper eyelid; Translations: [Dermatochalasis] Onset: 11-10-2016 11-10-2016 Episodic Other nervous system disorders (11 sources) H/O: retinal detachment; Translations: [Personal history of other diseases of the nervous system and sense organs] Onset: 11-10-2016 Episodic Unclassified (1 source) Patient's noncompliance with other medical treatment and regimen due to unspecified reason; Translations: [Patient's noncompliance with other medical treatment and regimen due to unspecified reason] Onset: 10-21-2023 Results Test Name Value Interpretation Reference Range Facility [facility] 10-24-2023 CNOV Office Visit (ABDULKADIR ) GIANFRANCO MARTIN ([id number]) 1950 M Date Time Provider Department 10/24/23 2:40 PM ALE HICKMAN During your visit today, we recorded the following information about you: Pulse Blood pressure Weight 79/minute 157/66 97.5 kg Raven Babcock 10/24/2023 3:09 [place] [id number] 72 year old male with nuclear sclerotic senile, ERM, pseudophakia here today for elevated PSA (9 outside [facility]). PSA PSA PSA, PERCENT FREE Latest Ref Rng AND Units 0.00 - 2.59 ng/mL % 07/25/2019 5.34 (H) 6 07/25/2019 5.33 (H) HISTORY OF PRESENT ILLNESS: Location: prostate Severity Scale: see AUA score, see pathology Duration: several months Associated signs and symptoms: elevated PSA PAST MEDICAL HISTORY Diagnosis Date Cataract, nuclear sclerotic senile, right Epiretinal membrane (ERM) of left eye Pseudophakia of left eye Retinal detachment, left PAST SURGICAL HISTORY Procedure Laterality Date PAST SURGICAL HISTORY OF Left 2007 Retinal detachment, left eye, repaired in [place], [place] PAST SURGICAL HISTORY OF hernia sx, POST-CATARACT LASER SURGERY Left 06/16/2022 YAG Capsulotomy OS by Dr. Gray XCAPSL CTRC RMVL INSJ IO LENS PROSTH W/O ECP Left 02/07/2017 Cataract Extraction with PC IOL OS by Dr. Gray FAMILY HISTORY Problem Relation Age of Onset Hypertension Father No Ocular Disease Father Hypertension Mother No Ocular Disease Mother Diabetes Brother Hypertension Brother Heart Brother Social History Tobacco Use Smoking status: Every Day Packs/day: 1 Types: Cigarettes Smokeless tobacco: Never Vaping Use Vaping Use: Never used Substance Use Topics Alcohol use: Yes Alcohol/week: 4.0 standard drinks of alcohol Types: 4 Cans of Beer (12oz) per week Comment: per day Drug use: No MEDICATIONS: Current Outpatient Medications Medication Sig albuterol HFA (PROVENTIL HFA, VENTOLIN HFA) 90 mcg/actuation inhaler doxycycline (VIBRAMYCIN) 50 mg capsule Take 50 mg by mouth once daily. atorvastatin (LIPITOR) 10 mg tablet amLODIPine (NORVASC) 5 mg tablet Take 5 mg by mouth once daily. naltrexone (TREXAN) 50 mg tablet busPIRone (BUSPAR) 5 mg tablet metFORMIN (GLUCOPHAGE) 500 mg tablet furosemide (LASIX) 20 mg tablet losartan-hydrochloroth iazide (HYZAAR) 50-12.5 mg per tablet atenolol (TENORMIN) 50 mg tablet loratadine (CLARITIN) 10 mg tablet Take 10 mg by mouth once daily. Cholecalciferol, Vitamin D3, 50 mcg (2,000 unit) cap Take by mouth. FLUoxetine HCl (PROZAC) 40 mg capsule Take 40 mg by mouth once daily. (Patient not taking: Reported on 06/06/2023) MINOCYCLINE HCL (MINOCYCLINE ORAL) Take by mouth. traZODone (DESYREL) 150 mg tablet Take 150 mg by mouth daily at bedtime. No current facility-administered medications for this visit. ALLERGY: ALLERGIES Allergen Reactions Penicillins Rash REVIEW OF SYSTEMS GENERAL: No fever, no fatigue and no weight loss. HEAD AND NECK: No headache, no blurred vision and no hearing loss. CARDIOVASCULAR: No chest pain, no palpitations and no leg edema. RESPIRATORY: No cough, wheezing and no shortness of breath. : As indicated in HPI. GI: No epigastric discomfort, no blood in stool and no changes in bowel habits. MUSCLOSKELETAL: No neck pain, no back anin and no joint pain. SKIN: No varicose veins, no rash and no abnormal itching. NEUROLOGICAL: No numbness, no seizures and no tremor. BLOOD: No ekimosis, no hematomas or no bleeding from the gums. ========= PHYSICAL EXAM: ========= GENERAL: Alert, oriented and in no distress. +unsteady gait ABDOMEN: Soft, non tender with no masses or organomegaly. No CVA tenderness. HERNIA: Negative EXTREMITIES: No leg edema, No joint swelling GENITALIA: URO REC EX Prostate: size (30 grams), symmetrical, nontender, w/o nodules. Good anal sphincter tone. [facility] SYMPTOMS SCORE. Date 10/24/2023 1. INCOMPLETE EMPTYING 1 2. FREQUENCY 1 3. INTERMITTENCY 1 4. URGENCY 1 5. WEAK STREAM 2 6. STRAINING 1 7. NOCTURIA 1 TOTAL SCORE 8 IMPRESSION: (Diagnostic Possibilities): Elevated PSA (9 outside [facility] on 10/23/23) BPH wo obstruction, AUA 1-2 30 gm prostate on NATANAEL, no nodules PLAN: (Management Options): Elevated PSA: Counseled the patient regarding current guidelines for prostate cancer screening. I outlined AUA risk stratification (47% risk for prostate cancer given PSA value of ~9). Plan = PSA in 4 weeks + telehone visit in 5 weeks Will consider prostate biopsy if PSA elevated. Medical Decision Making: Problems: Moderate: New problem with uncertain prognosis Data: Unique test result(s) reviewed: 2 Unique test(s) ordered: 1 Medical Decision Making Level: 4 - Moderate By (more content not included)... Normal [facility] 37on 10-21-2023 37 Resume taking norvasc/Amlodipine 5 mg daily for blood pressure Normal [facility] Office Visiton 10-21-2023 Follow-up visit [id number] Gianfranco Martin 1950 M Date Provider Department Center 10/21/2023 MONTSERRAT OLIOV Family History Problem Relation Age of Onset Coronary artery disease Father Stroke Father Family Status - Relation Status Age at Father Level of Service:83453 HI OFFICE/OUTPATIENT ESTABLISHED MOD MDM 30 MIN Normal [facility] 36on 10-06-2023 36 JEANIE Bean MA Labs look good- no concerns= kidney function normal and electrolytes normal Regarding labs done on 10/04/2023 Patient made aware. Normal [facility] 37on 09-21-2023 37 Stop amlodipine- and start spironlactone- 1 tab daily. Have blood work drawn about 1 week after starting this new med to check kidney function and electrolytes. Call office for any concerns Normal [facility] Office Visiton 09-21-2023 Follow-up visit [id number] Gianfranco Martin 1950 M Date Provider Department Center 09/21/2023 120-DILCIA, MONTSERRAT BH CARD [facility] Family History Problem Relation Age of Onset Coronary artery disease Father Stroke Father Family Status - Relation Status Age at Father Level of Service:11493 HI OFFICE/OUTPATIENT ESTABLISHED MOD MDM 30 MIN Normal [facility] Office Visiton 08-26-2023 Follow-up visit [id number] Gianfranco Martin 1950 M Date Provider Department Center 08/26/2023 Judit8-PAYALFABRIZIO BETANCOURT SHARRON [facility] Family History Problem Relation Age of Onset Coronary artery disease Father Stroke Father Family Status - Relation Status Age at Father Level of Service:88701 HI OFFICE/OUTPATIENT NEW LOW MDM 30 MINUTES Normal [facility] Patient Letter FTMCon 2022 Patient Letter FT November 30, 2022 GIANFRANCO MARTIN [address] [place] [address] GIANFRANCO MARTIN 1950 Dear Gianfranco Martin, [facility] [...] to get this outpatient procedure scheduled. Sincerely, Jf Sanches M.D., F.A.C.S. [facility] [address] [place] [address] , OPTION #3 SENT REGULAR/CERTIFIED MAIL Normal [facility] Coding Summary.on 10-27-2022 Coding Summary. CD:[id number] Gh 0bWw+PGhlYWQ+XK3STVTyT 95ubNKigD1cY3UQZQiMGpb wEGVFLEdXIkWzauCdMM9wj XNjZXJu IC8+OL2vURIwXcvrwXJir8 E6kUM7T36yom3eDNkvsLA3 AGOhXeImimkcl9jrhFq8HY cuNmluOyBt SQEuhE16EZO2tI31Sb44tQ CijQYpp0sxlKv3PpWyRRLn RPL9vJqjNPhpb4WdRKOzY6 4pzZOxu8S0 THWnpDkyaKNsWhMalYB0gD 9gJNuffbmeb5dvcvvpAby8 ac35aVIce8G7uVY4R7Zjac P9SDKruCCt IkiwmPPJyE4ngxnxe7pznt tuSfDxGVGpJKx5RWn3SBMv iGvgHjLkND31DOW5SGOtox MmS0GpJWBk eQeuTkG0l1K5Hv4FN6VHDe zlG4YFMJNVDCvmuPF+PC90 ss16P7BrWyqyCvl8CFRpWI P2uSK5eP3b QLBoWRgqk5W2qLO7A1Dvua Cfvt1rd2qrVMHxJTkaH72e zJQce4J4JPYasCQ5KNKntO vvEnVaaV22 Oyc+SVEdnNziw7TsKjmvj2 jdo4yjpMw1RmdhDMHlosIk zFgwMWT5f7KwGc2oVTVndG B7oTR5nG0i PmJqRmZ1VJqnQ875IrNwlM BrThcdE49wD4FaaNT+PHRy Xgb7ETFtuFtkFS9jP4AbYY RpbmctbGVm nRrwHR8eAMHzxropZJPbbA 2qTYIaH9l7NsWhClG7NEls P7BiZRMkcaugMp39gQ2rEf HkAxA5XNza R7XhzzS0ODJdiIRcRZseGY M8X47qw2L5SSEsNKKuWWA5 bGZ5pO8czVmqghwpfGIfmY sgdmVydGlj CUxfTPeoM511NXDsvLflXn NvZGluZyBEYXRlOiAgMDMv MDgvMjAyMzwvdGQ+PHRkIH W8wAchRSQv gYFrHYekDq7gtNzjbDedLN 1iJJYnfspxIAQmiB5bOURm oBLhwLzpLX0xPTHqrcizw0 80VdDiDUD3 YBHpoWInM3ShvR1iFgYrSA HkKJRgA1OidTBgLEbrN189 HVoxAzC9JTMwoeVsN8OuUE FsaWduOiB0 k9C4Si7Wp8BevbmlZ6QkwW AfRpIwGadeBAn5B2DfWldo dHI+WX02OSAeMI12TKv1PH K8uVvpSTdm JNBuI4MnoJ8qUrTkUVOrSC RkOyc+PHRhYmxlIHdpZHRo MBioARAwIbVqsZkwQS5mZn 9yZGVyLWNv pVlpnSXzPbTbm6lnMNTaII pfZJ5ohHliE9VyeDS2IDYg k9j6Fe64X67yA0QadBS+PG DndHO7kEQ0 fU7eOsSwAcI2AWmtW142Ep SnvOXcYkhhf2knb2vjkAu5 JiK2SYWvyzJqbRqhXWI3i5 RiQh41S53n IHdpZHRoPSIxNSUiIHZhbG xyqq8neX6sXj8+PGNvbCB3 qYJ2dR4pVnFnCeR2WYxdV0 49InRvcCIv Bikzg6mdz1cupNp3VcXrTU VkkcVzgSisKLC9m1CaFj10 L1IlwNzjw4SkHyg2ic92wF Bpb9Z2cFJ5 Y5PjCJCmryumbKYwsRehTQ 2yKQJzpfluFTYexS8jOGKo R7p3OrDkUyA7XHgnB6Jnzr N3XQDupUVj PRQajIYYlN7iawclf7hdvj wcRiLcYOOrZLs6YRv0TRQz oLplWfZsPUH6GyW5ROZ5yX OlfW9zdLdn qnkzmC9aAru+SQL0tHRxkT PBSO9jOrdnpJY+PHRkIHN0 oFueXIgdANUwmJ1vTGZzM3 f3TlGzGaJ2 JRexX8TdmwZ6JGHlhNChUW TyoDJXnB9gjjhoj9sveuka AyQmIXYiAKv1ZSk7YZRlvR duOiBsZWZ0 FgE6UFA5bJSygX2fiPuvkm ueqJ0gTwa+QmlydGggRGF0 FDq0O0QrWqk7NKZrlUmvWY 0ncGFkZGlu Pp0ogKqeuOfkON7nYMMvef oyc449SwEtw2epLDTjoAQu BRhuGYQ6M38iv8C7WQEeKQ CeUFW7iHL6 dO4vxUulqslqkJSquJwmel RbhYjmHZvjYLjzK188SMYh vWgfHsRiGKp0O6VeFce5NH NdfNdrBO2t bMScNRrlPo2vgDbhwGeaQM 2xGOGcjvxhu052GvVky0ps QLHaoQDsSXnzVDM6C72cu3 I4NINpQSMt PZL8jKW1oN9vuJetkjdtuF VmdDsgdmVydGljYWwtYWxp W288KCNopUscLiJgxKa5C9 VrJqt7PODm yJoxEA3veAJfYGczQv5ccS geiWfzWH2bHXSgudzku593 HsCfj7zvKVDoiCIkWIckKZ F8P97qi3E9 ZTFtCXHsDJF0sNS3iO0nyE lnbjogbGVmdDsgdmVydGlj SHvhVFfaX281DTDqlHhhLs BhdGllbnQg WAwbSMw5L1UxUypueAN+PC 16QBXlZD62dWGboPFvd1rn hHu4ScYkTCRsKJR5lWniNF dqv1WpWYJt T45tnWAve8D2TCQhhVjzwH AkIjNzrLM5fR2jEQegosyk p2laejwzQffiu7izdj61iU 30X60aIRqk ZHRoPSIzMCUiIHZhbGlnbj 3kbL5aZn2+ULQthED7bYF6 wH4nJUInBsX1EYouU035Bs RvcCIvPjxj d5mwk9htbGe9EyD0IZSsjc WdyQcwIYA0o8ZsQl32I55t IHdpZHRoPSIyMCUiIHZhbG ljrf4waU3l Ii8+RKEfwUA7yQK3eH1mLd HyGbJ6NDbdV242PoMhjJRw ZtliG47cC6GydYQ+PHRyPj u6VSMbzAin KZ9bxSHvPLbrNk4cFOT8Tk MlJoLrSJzmO3LzISFksqlt kjyrzSO2WEFeYXZuxA01Lk 9udDogMTBw jRTKsU7hvxpwc2henrguLu TvPBYwRSz1EYy6GSSniTrc XeHxOQM9YmM9YOE1bCPpzJ 1hbGlnbjog eY7eW1ExFROwhymjEm92nI 7hHrFcHxZ6RWufMyv+UFVM XIJVQycuZqfKL5qDQfaspE Q+PHRkIHN0 qKzaCOkkPJVqxS5cZRGmV3 b2KcSsCgJ6FMcaA2OgGFNd mjnjVw48vW0eJaQhNmB6UL ekE7EhmuK9 KPPwkBFnIMomADS4C34kb3 E8YOVwBSEpMCF7yGX0rU4l bGlnbjogbGVmdDsgdmVydG ljYWwtYWxp K187PCLabTlzAbS3OaG1Es M7PFC6X9XdUbx3MZJyeCap PR8uxHAuZSxtBu8ceSjviB ueBI8wEOTh hdjhQTLglA7jJTJjkFMexX izTG1mQUFynkuqf510MiGu GYW3NJQzuMXrO8KrcF0bWm AjMDAwMDAw P5LxgERjTJmgE073ANjsSc D9WBRzpmYhH4AbWWEejXmp XzO9l4E4Bk79DtANOPDbll wvdGQ+PHRk EJA1fQehJFmqUHSsmD8oWB GwY6u1UvFrAtW7LKrzS5Ck BRVkvnmmBg84iN3qZjKhKz U9FFdkT5Ob ubL8CHRzlMSaHJqlAOH0M1 5yo0R0HWJiFMCdWDR9uUL4 dJ0pvWisisqjoIAdtMlvqn VydGljYWwt GVykB651ZHFqpBaeFb0elK H3R6FdVcb0AQPacTksTV2z oACsYCsjCl5sgSzpiSgmNI 4wNTBpbjtw WEIneW7nKNNqeXCjiUmtWN 5gGEMyiwnbo671LyUnAKM7 LMUjiUBmP4AtsM9rVdFzIK DmCMOnC4Qn aWXnNBfgM211TCwsFkY1DJ RzncFlG0OvKOTsqYawKaL8 u1L6Ar9EIYMzNDUaeMXsUm F9R8CpYokz dHI+DL54EEDoUV36uNEaoL Vdv2ramUq7GzHcWYMlEOV5 nVmhZAnch0StBDPxD37veY Jxf6Z7ACLr nPyhfGVgXtYmvKH2aR2tCP byvbbny6ldonjvRddvc6sm pn88rJ01F03gVEacUBOhYY IzMCUiIHZh nGwosy2loT3fIz0+PGNvbC L0oFZ3hF7nAyHyOaA0XIrf F546HzEntILeXivxf4kwb5 bifSc8VyFs QYJxomFmbEhvMPO3m8QoXg 69U73yDMuxFOWsBIKrCXWp LBDiyOioyf5sgP0kQl2+PC 8ak7ijat15 tB25yRL+KTEsYXU1gAnkPU buUUGuvC1nNAzoUrQ4CZZo UzXfeM57nQMxIDybIc7akB bryJqeZK5i IJJrqmaut201NpBwj7nxYC QpuQIdGTgjUKA6D72ki1G4 BOWuMULoWIA6lKW1tQ5fjQ lnbjogbGVm dDsgdmVydGljYWwtYWxpZ2 21WCEdhKmhPyRfqSDvN7gi pgYVCD5mZqaexHZ+PHRkIH R0kBkkPLku VPUncS5fGTSjP1p3DaNiSh N5UIvuV9FuseZ2MRVvxMAo KDEbsOPIuK1axicoo3oiul ogIzAwMDAw PQl6TTa3KDKgqRbbKsRjSU O1SbC4YFT2oBTmyS5kwSjg cccypX5mFyw+RklOOjwvdG Q+PHRkIHN0 mVwePQdnQQPpwC8yEYJfD3 g4BtXgEeI5CTiyG1IdfrC3 TLHufDRzRPOmtRBOgG4zbv pyd7suadpb WfIvEVUbCLl0URj7YXUpxM hpBaUyNCM2WoP1CDE1zIVt tS7ahDslzaoldA8tTer+TV JOOjwvdGQ+ AUOcUHU7fJfuBWaoHNXblY 3eQNFbZ0e1OxVvOqN5PXjc R4WfvyC1QYDwyDVuQEOwaQ OXyY4eosht f7izfzonAeXjKPJgUXu9LG q6SKUmcLhrLhJiJEZ5AbH3 NBJ5aANmyG4gvEqdrleinL 9wOyc+UGF5 VDV4GL60IS50C5FmOcyfbO FibGU+PHRhYmxlIHdpZHRo UZpyJSUtMaKhuOqjMT6wPd 9yZGVyLWNv bGxh (more content not included)... Normal [facility] Reportson 10-27-2022 Lab Reports [id number] Normal [facility] Ambulatory Visit Summaryon 0 10-15-2022 Ambulatory Visit Summary GIANFRANCO MARTIN :1950 Visit Date:10/15/2022 Ambulatory Visit Instructions Your Diagnosis Elevated PSA Benign prostatic hyperplasia (BPH) with post-void dribbling Tests Performed Urnls Dip Stick Auto w/o Microscopy POC 14915 Your Care Team Attending Physician - Jf SANCHES MD Primary Care Physician - DAINA JUGDE CNP This Is Your Medications List Contact [...] Following Appointments Follow Up with SELENA LEONG, Jf Reis, STEFANI When: Where: [address] [place] [address]- Medications What When Instructions Unchanged amlodipine (amLODIPine [...] Urnls Dip Stick Auto w/o Microscopy POC 18518 (10/15/2022) Bilirubin Urine Dipstick - Negative Blood Urine Dipstick - Negative Glucose Urine Dipstick - Negative Ketones Urine Dipstick - Negative Leukocytes Urine Dipstick - Negative Nitrite Urine Dipstick - Negative Protein Urine Dipstick - Negative Specific [place] Urine Dipstick - 1.010 Urine Appearance Urine [...] of these risk factors: ? Being of -[place] descent. ? Having a family history of prostate cancer. ? If you are age 55?69, talk with your health care provider about (more content not included)... Normal [facility] Patient Educationon 10-15-19 Patient Education Oncology Prostate [...] of these risk factors: ? Being of -[place] descent. ? Having a family history of [...] Are older than age 55. ? Are -[place]. ? Have a father, brother, or uncle [...] R (more content not included)... Normal [facility] Urology Office/Clinic Noteon 10-15-2022 Urology Office/Clinic Note [...] Follow-up With When Contact Information SELENA LEONG, Jf Reis, URL [address] [place], [place] [id number]- Additional Instructions: PSA today - await results Patient Education Prostate Cancer Screening IDori, personally scribed for Dr. Sanches on 10/15/2022 [...] Father. Immunizations Vaccine Date Status Comments SARSCoV2 mRNA(hpiooejxs-aeua-sx moe) vac 03/12/2022 Recorded 2022-06-28: TPV70 SARS-CoV-2 (COVID-19) mRNA BNT-162b2 vax 11/14/2020 Recorded 2022-06-28: TPV70 SARS-CoV-2 (COVID-19) mRNA BNT-162b2 vax 10/24/2020 Recorded 2022-06-28: TPV70 Lab Results Ambulatory Point of Care Results Bilirubin Urine Dipstick: Negative (10/15/22 10:39:00) Blood Urine Dipstick: Negative (10/15/22 10:39:00) Glucose Urine Dipstick: Negative (10/15/22 10:39:00) Ketones Urine Dipstick: Negative (10/15/22 10:39:00) Leukocytes Urine Dipstick: Negativ (more content not included)... Normal [facility] Comment on above: Result Comment: Elec tronically Signed By: Jf SANCHES MD\.br\Date and Time Signed: 10/15/22 11:23 EST\.br\Electronically Co-Signed By: Dori Wynne.br\Date and Time Co-Signed: 10/15/22 11:19 EST\.br\Electronically Co-Signed By: Dori Wynne\.br\Date and Time Co-Signed: 10/15/22 11:21 EST Creatinine (Bld) [Mass/Vol]O rdered By: Jf Sanches on 07-14-2022 Creatinine [Mass/Vol] 0.8 mg/dL 0.6-1.3 [facility] Comment on above: ER/ESD physician is notified/shown all ISTAT results.Critical values may be confirmed by laboratory testing ifdeemed necessary by ER attending doctor. ISTAT XRay CREon 07-14-2022 Creatinine [Mass/Vol] 0.8 mg/dL Normal 0.6-1.3 [facility] Comment on above: Result Comment: ER/E SD physician is notified/shown all ISTAT results. Critical values may be confirmed by laboratory testing if deemed necessary by ER attending doctor. Performed By: #### I SCRE #### [address] Point of Care testing , ISTAT GFR ( > 60 Normal [facility] Comment on above: Result Comment: GFR estimated reference range: According to KDOQI guidelines, <60 ml/min/1.73m2 is sufficient to diagnose a patient with chronic kidney disease. PERFORMED BY: [place] [address] PATHOLOGIST PROPERTY MANAGEMENT SUPERVISOR MADELYN LAIRD M.D. Performed By: #### I SCRE #### [address] Point of Care testing , ISTAT GFR (Non- Am > 60 Normal [facility] Comment on above: Performed By: #### I SCRE #### [address] Point of Care testing , No Panel InformationOrdered By: Jf Sanches on 07-14-2022 POC Estimated GFR > 60 [facility] Comment on above: GFR estimated refere nce range: According to KDOQI guidelines, <60 ml/min/1.73m2 is sufficient to diagnose a patient with chronic kidney disease. POC Estimated GFR Non- Amer > 60 [facility] Pre-Certification Formon Pre-Certification Form [id number] 0CD:127 Normal [facility] Lab Reportson 07-05-2022 Lab Reports [id number] 0CD:127 Normal [facility] Physician Referralon 022 Physician Referral [id number] 0CD:127 Normal [facility] Ambulatory Visit Summaryon 1 08-28-2021 Ambulatory Visit Summary GIANFRANCO MARTIN :1950 Visit Date:06/28/2022 Ambulatory Visit Instructions Your Diagnosis Elevated PSA Benign prostatic hyperplasia (BPH) with post-void dribbling Tests Performed MRI Pelvis (Soft Tissue) w/ + w/o contrast -- Results Pending -- Please visit your patient portal for your results or contact your primary care physician. Your Care Team Attending Physician - Jf SANCHES MD Primary Care Physician - DAIAN JUDGE CNP Referring Physician - DAINA JUDGE [...] Following Appointments Follow Up with SELENA LEONG, Jf Reis, URL When: Where: [facility] [address] , [place] [address]- [phone] Medications What When Instructions Unchanged amlodipine (amLODIPine [...] prostate gland (more content not included)... Normal [facility] Historical Records Officeon 06-28-2022 Historical Records Office [id number]:127 Normal [facility] Patient Educationon 06-28-20 Patient Education Urology [...] Follow these instructions at home: ? Take aryo-ntk-yqpisab and prescription medicines only as told by [...] You d (more content not included)... Normal [facility] PSA, FREE AND TOTAL RATIOon 05-21-2022 % Free PSA 7.1 % Normal [facility] Comment on above: Result Comment: The table [...] men. Performed By: #### P SAFREE #### [facility] [address] [place] [address] Dr. Zaira Benoit Prostate specific Ag [Mass/Vol] 6.8 ng/mL Critically high 0.0-4.0 [facility] Comment on above: Result Comment: Bryant SEXTON methodology. . According to the [place] [employer], Serum PSA should decrease and [...] disease. Performed By: #### P SAFREE #### [facility] [address] [place] [address] Dr. Zaira Benoit PSA, Free 0.48 ng/mL Normal N/A [facility] Comment on above: Result Comment: Bryant PERRYIA methodology. Performed By: #### P SAFREE #### [facility] [address] [place] [address] Dr. Zaira Benoit INSULINon 05-13-2022 Insulin 7.8 uIU/mL Normal 2.6-24.9 [facility] Comment on above: Performed By: #### I NSULIN #### [facility] [address] [place] [address] Dr. Zaira Benoit CBC AUTO DIFFon 05-12-2022 BASO # 0.1 103/ul Normal 0.0-0.1 [facility] Comment on above: Performed By: #### C BC #### [facility] [address] [place] [address] Dr. Zaira Benoit Basophils/100 WBC (Bld) 0.9 % Normal 0.2-2.0 [facility] Comment on above: Performed By: #### C BC #### [facility] [address] [place] [address] Dr. Zaira Benoit EO # 0.2 103/ul Normal 0.0-0.7 [facility] Comment on above: Performed By: #### C BC #### [facility] [address] [place] [address] Dr. Zaira Benoit Eosinophils/100 WBC (Bld) 2.1 % Normal 0.9-7.0 [facility] Comment on above: Performed By: #### C BC #### [facility] [address] [place] [address] Dr. Zaira Benoit Erythrocyte distribution width (RBC) [Ratio] 13.2 % Normal 11.0-15.0 [facility] Comment on above: Performed By: #### C BC #### [facility] [address] [place] [address] Dr. Zaira Benoit Hematocrit (Bld) [Volume fraction] 46.6 % Normal 42.0-54.0 [facility] Comment on above: Performed By: #### C BC #### [facility] [address] [place] [address] Dr. Zaira Benoit Hemoglobin (Bld) [Mass/Vol] 15.5 g/dL Normal 14.0-18.0 [facility] Comment on above: Performed By: #### C BC #### [facility] [address] [place] [address] Dr. Zaira Benoit IG # 0.02 10e3/ul Normal 0.00-0.03 [facility] Comment on above: Performed By: #### C BC #### [facility] [address] [place] [address] Dr. Zaira Benoit IG % 0.3 % Normal 0.0-0.5 [facility] Comment on above: Performed By: #### C BC #### [facility] [address] [place] [address] Dr. Zaira Benoit LYMPH # 2.6 103/ul Normal 1.2-3.8 [facility] Comment on above: Performed By: #### C BC #### [facility] [address] [place] [address] Dr. Zaira Benoit Lymphocytes/100 WBC (Bld) 36.9 % Normal 20.5-60.0 [facility] Comment on above: Performed By: #### C BC #### [facility] [address] [place] [address] Dr. Zaira Benoit MANUAL DIFF REQ NO Normal [facility] Comment on above: Performed By: #### C BC #### [facility] [address] [place] [address] Dr. Zaira Benoit MCH (RBC) [Entitic mass] 33.2 pg Normal 25.9-34.0 [facility] Comment on above: Performed By: #### C BC #### [facility] [address] [address] [address] Zaira Benoit MCHC (RBC) [Mass/Vol] 33.3 g/dL Normal 29.9-35.2 [facility] Comment on above: Performed By: #### C BC #### [facility] [address] [place] [address] Dr. Zaira Benoit MCV (RBC) [Entitic vol] 99.8 fL Critically high 80.0-94.0 [facility] Comment on above: Performed By: #### C BC #### [facility] [address] [place] [address] Dr. Zaira Benoit MONO # 0.6 103/ul Normal 0.3-0.8 [facility] Comment on above: Performed By: #### C BC #### [facility] [address] [place] [address] Dr. Zaira Benoit Monocytes/100 WBC (Bld) 9.1 % Normal 1.7-12.0 [facility] Comment on above: Performed By: #### C BC #### [facility] [address] [place] [address] Dr. Zaira Benoit NEUT # 3.6 103/ul Normal 1.4-6.5 [facility] Comment on above: Performed By: #### C BC #### [facility] [address] [place] [address] Dr. Zaira Benoit Neutrophils/100 WBC (Bld) 50.7 % Normal 43.0-75.0 [facility] Comment on above: Performed By: #### C BC #### [facility] [address] [place] [address] Dr. Zaira Benoit Platelet mean volume (Bld) [Entitic vol] 9.3 fL Critically low 9.5-13.5 [facility] Comment on above: Performed By: #### C BC #### [facility] [address] [place] [address] Dr. Zaira Benoit PLT 191 103/ul Normal 150-450 [facility] Comment on above: Performed By: #### C BC #### [facility] [address] [address] [address] Zaira Benoit RBC 4.67 106/ul Critically low 4.70-6.10 [facility] Comment on above: Performed By: #### C BC #### [facility] [address] [address] [address] Zaira Benoit WBC 7.0 103/ul Normal 4.0-11.0 [facility] Comment on above: Performed By: #### C BC #### [facility] [address] [address] [address] Zaira Benoit GLYCOHEMOGLOBIN A1Con 2021 ADA RECOMMENDATION SEE BELOW Normal [facility] Comment on above: Result Comment: ADA RECOMMENDED LIMIT 4.0 - 6.0 ADA THERAPEUTIC TARGET < 7.0 ACTION SUGGESTED > 7.0 Performed By: #### A 1C #### [facility] [address] [place] [address] Dr. Zaira Benoit Glucose [Mass/Vol] 151 mg/dL Normal [facility] Comment on above: Performed By: #### A 1C #### [facility] [address] [place] [address] Dr. Zaira Benoit HbA1c (Bld) [Mass fraction] 6.9 % Critically high 4.5-6.2 [facility] Comment on above: Performed By: #### A 1C #### [facility] [address] [place] [address] Dr. Zaira Benoit LIPID PROFILEon 05-12-2022 CHOL-HDL RATIO NORM SEE BELOW Normal [facility] Comment on above: Result Comment: 3.3 - 4.4 LOW RISK 4.4 - 7.1 AVERAGE RISK 7.1 - 11.0 MODERATE RISK >11.0 HIGH RISK Performed By: #### L IPID, URIC, CMP #### [facility] [address] [place] [address] Dr. Zaira Benoit Cholesterol [Mass/Vol] 132 mg/dL Normal <=200 [facility] Comment on above: Performed By: #### L IPID, URIC, CMP #### [facility] [address] [address] [address] Zaira Benoit Cholesterol in HDL [Mass/Vol] 53 mg/dL Normal 40-60 [facility] Comment on above: Performed By: #### L IPID, URIC, CMP #### [facility] [address] [address] [address] Zaira Benoit Cholesterol in LDL [Mass/Vol] 59.6 mg/dL Normal [facility] Comment on above: Performed By: #### L IPID, URIC, CMP #### [facility] [address] [address] [address] Zaira Benoit Cholesterol.total/Chol esterol in HDL [Mass ratio] 2.5 {ratio} Normal [facility] Comment on above: Performed By: #### L IPID, URIC, CMP #### [facility] [address] [address] [address] Zaira Benoit HDL NORMAL > or = 60 mg/dl - LO W CARDIOVASCULAR RISK <40 mg/dl - HIGH CARDIOVASCULAR RISK Normal [facility] Comment on above: Performed By: #### L IPID, URIC, CMP #### [facility] [address] [address] [address] Zaira Benoit LDL CALC NORMAL SEE BELOW Normal [facility] Comment on above: Result Comment: <100 mg/dl OPTIMAL 100 - 129 mg/dl NEAR OR ABOVE OPTIMAL 130 - 159 mg/dl BORDERLINE HIGH 160 - 189 mg/dl HIGH >190 mg/dl VERY HIGH Performed By: #### L IPID, URIC, CMP #### [facility] [address] [address] [address] Zaira Benoit Triglyceride [Mass/Vol] 97 mg/dL Normal <=150 [facility] Comment on above: Performed By: #### L IPID, URIC, CMP #### [facility] [address] [address] [address] Zaira Benoit VLDL CALC 19.4 mg/dL Normal [facility] Comment on above: Performed By: #### L IPID, URIC, CMP #### [facility] [address] [address] [address] Zaira Benoit PROF 14(COMP METB)on 022 Albumin [Mass/Vol] 3.9 g/dL Normal 3.4-5.0 [facility] Comment on above: Performed By: #### L IPID, URIC, CMP #### [facility] [address] [address] [address] Zaira Benoit Albumin/Globulin [Mass ratio] 1.1 {ratio} Normal [facility] Comment on above: Performed By: #### L IPID, URIC, CMP #### [facility] [address] [address] [address] Zaira Benoit ALP [Catalytic activity/Vol] 92 U/L Normal 46-116 [facility] Comment on above: Performed By: #### L IPID, URIC, CMP #### [facility] [address] [address] [address] Zaira Benoit ALT [Catalytic activity/Vol] 31 U/L Normal 16-63 [facility] Comment on above: Performed By: #### L IPID, URIC, CMP #### [facility] [address] [address] [address] Zaira Benoit Anion gap [Moles/Vol] 12.2 mmol/L Normal [facility] Comment on above: Performed By: #### L IPID, URIC, CMP #### [facility] [address] [address] [address] Zaira Benoit AST [Catalytic activity/Vol] 20 U/L Normal 15-37 [facility] Comment on above: Performed By: #### L IPID, URIC, CMP #### [facility] [address] [address] [address] Zaira Benoit Bilirubin [Mass/Vol] 0.4 mg/dL Normal 0.2-1.0 [facility] Comment on above: Performed By: #### L IPID, URIC, CMP #### [facility] [address] [address] [address] Zaira Benoit Calcium [Mass/Vol] 8.8 mg/dL Normal 8.5-10.1 [facility] Comment on above: Performed By: #### L IPID, URIC, CMP #### [facility] [address] [address] [address] Zaira Benoit Chloride [Moles/Vol] 101 mmol/L Normal 98-107 [facility] Comment on above: Performed By: #### L IPID, URIC, CMP #### [facility] [address] [place] [address] Dr. Zaira Benoit CO2 [Moles/Vol] 29.3 mmol/L Normal 21.0-32.0 [facility] Comment on above: Performed By: #### L IPID, URIC, CMP #### [facility] [address] [place] [address] Dr. Zaira Benoit Creatinine [Mass/Vol] 0.88 mg/dL Normal 0.70-1.30 [facility] Comment on above: Performed By: #### L IPID, URIC, CMP #### [facility] [address] [place] [address] Dr. Zaira Benoit EGFR-AF PAKISTANI >60 Normal >=60 [facility] Comment on above: Performed By: #### L IPID, URIC, CMP #### [facility] [address] [place] [address] Dr. Zaira Benoit EGFR-NON AF PAKISTANI >60 Normal >=60 [facility] Comment on above: Performed By: #### L IPID, URIC, CMP #### [facility] [address] [place] [address] Dr. Zaira Benoit Globulin (S) [Mass/Vol] 3.6 g/dL Normal [facility] Comment on above: Performed By: #### L IPID, URIC, CMP #### [facility] [address] [place] [address] Dr. Zaira Benoit Glucose [Mass/Vol] 128 mg/dL Critically high 74-106 [facility] Comment on above: Performed By: #### L IPID, URIC, CMP #### [facility] [address] [place] [address] Dr. Zaira Benoit Potassium [Moles/Vol] 4.5 mmol/L Normal 3.5-5.1 [facility] Comment on above: Performed By: #### L IPID, URIC, CMP #### [facility] [address] [address] [address] Zaira Benoit Protein [Mass/Vol] 7.5 g/dL Normal 6.4-8.2 [facility] Comment on above: Performed By: #### L IPID, URIC, CMP #### [facility] [address] [address] [address] Zaira Benoit Sodium [Moles/Vol] 138 mmol/L Normal 136-145 [facility] Comment on above: Performed By: #### L IPID, URIC, CMP #### [facility] [address] [place] [address] Dr. Zaira Benoit Urea nitrogen [Mass/Vol] 4.0 mg/dL Critically low 7.0-18.0 [facility] Comment on above: Performed By: #### L IPID, URIC, CMP #### [facility] [address] [place] [address] Dr. Zaira Benoit Urea nitrogen/Creatinine [Mass ratio] 4.5 mg/mg Normal [facility] Comment on above: Performed By: #### L IPID, URIC, CMP #### [facility] [address] [place] [address] Dr. Zaira Benoit URIC ACID SERUMon 05-12-2022 Urate [Mass/Vol] 7.5 mg/dL Critically high 3.5-7.2 [facility] Comment on above: Performed By: #### L IPID, URIC, CMP #### [facility] [address] [place] [address] Dr. Zaira Benoit No Panel Information [facility] Vital Signs Date Time Vital Sign Value Performing Clinician Sohail lovett 10-24-2023 14:53-0500 Body weight 97.52 kg Ale Hickman MD Work Phone: [facility] 10-24-2023 14:53-0500 Diastolic blood pressure 66 mm[Hg] Ale Hickman MD Work Phone: [facility] 10-24-2023 14:53-0500 Heart rate 79 /min Ale Hickman MD Work Phone: [facility] 10-24-2023 14:53-0500 Systolic blood pressure 157 mm[Hg] Ale Hickman MD Work Phone: [facility] 10-15-2022 10:45-0500 Diastolic blood pressure 79 mm[Hg] Jf SANCHES [facility] 10-15-2022 10:45-0500 Heart rate 86 /min Jf SANCHES [facility] 10-15-2022 10:45-0500 Systolic blood pressure 128 mm[Hg] Jf SANCHES [facility] 06-28-2022 13:37-0500 Blood Pressure Location Jf SANCHES [facility] 06-28-2022 13:37-0500 Diastolic blood pressure 89 mm[Hg] Jf SANCHES [facility] 06-28-2022 13:37-0500 Heart rate 74 /min Jf SANCHES [facility] 06-28-2022 13:37-0500 Respiratory rate 16 /min Jf SANCHES [facility] 06-28-2022 13:37-0500 Systolic blood pressure 140 mm[Hg] Jf SANCHES [facility] Encounters Encounter Date Encounter Type Care Provider Facility Start: 10-24-2023 End: 10-24-2023 ambulatory RAUL Katya HOUSTON Facility:[facility] Start: 10-24-2023 End: 10-24-2023 Patient encounter procedure Ale Hickman MD Work Phone: Urology Comment on above: Elevated prostate sp ecific antigen (PSA) (Primary Dx); BPH without obstruction/lower urinary tract symptoms Start: 10-21-2023 End: 10-21-2023 ambulatory [facility] Start: 09-21-2023 End: 09-21-2023 ambulatory [facility] Start: 08-26-2023 End: 08-26-2023 ambulatory FABRIZIO HENNINGMICHELLE [facility] Start: 06-27-2023 End: 06-27-2023 ambulatory KENYON ANGEL Facility:[facility] Start: 06-06-2023 End: 06-06-2023 ambulatory RAUL SUN Facility:[facility] Start: 06-06-2023 End: 06-06-2023 Patient encounter procedure Marquis Weaver OD Work Phone: Ophthalmology Comment on above: Type 2 diabetes wil itus without retinopathy (HCC) (Primary Dx); Retinal hemorrhage, left eye; Nuclear sclerotic cataract of right eye; Pseudophakia, left eye; History of YAG laser capsulotomy of lens, left; History of retinal detachment Start: 03-02-2023 ambulatory KRISSY GRAY Facility :[facility] Start: 03-02-2023 End: 03-02-2023 Patient encounter procedure Krissy Gray MD Work Phone: Ophthalmology Comment on above: OPENED IN ERROR (Jocelyne reji Dx) Start: 10-26-2022 End: 10-27-[address] JF SANCHES . Facility: Start: 10-15-2022 End: 10-16-2022 ambulatory Jf SANCHES Facility:[facility] Start: 10-15-2022 End: 10-16-2022 ambulatory Jf SANCHES Facility:[facility] Start: 10-15-2022 End: 10-15-2022 Lab Drop off Jf SANCHES [facility] Start: 10-15-2022 End: 10-15-2022 Patient encounter procedure Jf SANCHES [facility] Start: 07-14-2022 End: 07-14-2022 ambulatory Daina Judge Facility:[facility] Start: 07-14-2022 End: 07-14-2022 ambulatory CARNIVAL WORKER-C Dainaruth Dodge Alfie Work Phone: [facility] Work Phone: Start: 07-14-2022 End: 07-14-2022 Patient encounter procedure CARNIVAL WORKER-C Daina Alfie Work Phone: [facility] Start: 06-28-2022 End: 06-29-2022 ambulatory Jf SANCHES Facility:[facility] Start: 06-28-2022 End: 06-28-2022 Patient encounter procedure Jf SANCHES [facility] Start: 06-16-2022 End: 06-16-2022 Patient encounter procedure Krissy Gray MD Work Phone: Ophthalmology Comment on [...] of both upper eyelids Start: 02-26-2022 ambulatory Krissy Gray MD Work Phone: Ophthalmology Comment on above: left eye Start: 02-17-2022 End: 02-17-2022 Patient encounter procedure Krissy Gray MD Work Phone: Ophthalmology Comment on [...] above: Performed By: #### P SAD #### [facility] [address] [place] [address] Dr. Zaira Benoit Start: 06-16-2022 Post-cataract laser surgery Krissy Gray MD Work Phone: Start: 05-12-[address] ZOLTAN SANCHES . Comment on above: Performed By: #### P SASC #### [facility] [address] [place] [address] Dr. Zaira Benoit Start: 02-17-2022 Computerized ophthal marquis imaging retina Krissy Gray MD Work Phone: Start: 02-17-2022 Computerized corneal topography uni/bi Krissy Gray MD Work Phone: Start: 08-22-2018 Transrectal biopsy o f prostate using ultrasound guidance Jf SANCHES Ophthalmological imp lant (physical object) Jf SANCHES Comment on above: left eye Repair of incisional hernia Jf SANCHES Plan of Treatment Date Care Activity Detail Author Start: 06-27-2024 Glaucoma screening Dilated Retinal E xam [facility] Start: 06-06-2024 Hepatitis C antibody , confirmatory test Dilated Retinal Exam [facility] Start: 11-24-2023 End: 02-23-2024 Prostate specific Ag [Mass/volume] in Serum or Plasma PSA/PROSTSPECAG DIAG Lab Routine Elevated prostate specific antigen (PSA) BPH without obstruction/lower urinary tract symptoms Expected: 11/24/2023 (Approximate), Expires: 02/23/2024 [facility] Work Phone: Comment on above: Expected: 11/24/2023 (Approximate), Expires: 02/23/2024 Start: 08-22-2023 Advance Directive Discussion Advance Directive Discussion [facility] Start: 08-22-2023 Depression Assessment Depression Ass essment [facility] Start: 06-16-2023 Hepatitis C antibody , confirmatory test DILATED RETINAL EXAM [facility] Start: 04-22-2023 Covid-19 Vaccine () Covid-19 Vaccine () [facility] Start: 04-22-2023 Influenza vaccination C [facility] Start: 03-01-2023 Hepatitis C antibody , confirmatory test DILATED RETINAL EXAM [facility] Start: 02-17-2023 Hepatitis C antibody , confirmatory test DILATED RETINAL EXAM [facility] Start: 12-11-2022 COVID-19 VACCINE (5 - Pfizer series) COVID-19 VACCINE (5 - Pfizer series) [facility] Start: 08-22-2022 ADVANCE DIRECTIVE DISCUSSION ADVANCE DIRECTIVE DISCUSSION [facility] Start: 08-22-2022 DEPRESSION ASSESSMENT DEPRESSION ASS ESSMENT [facility] Start: 05-07-2022 COVID-19 VACCINE (4 - Booster for Pfizer series) COVID-19 VACCINE (4 - Booster for Pfizer series) [facility] Start: 04-22-2022 Influenza vaccination C [facility] Start: 08-22-2021 ADVANCE DIRECTIVE DISCUSSION ADVANCE DIRECTIVE DISCUSSION [facility] Start: 08-22-2021 DEPRESSION ASSESSMENT DEPRESSION ASS ESSMENT [facility] Start: 04-16-2021 COVID-19 VACCINE (3 - Booster for Pfizer series) COVID-19 VACCINE (3 - Booster for Pfizer series) [facility] Start: 07-25-2020 COLORECTAL CANCER SCREENING COLORECTAL CANCER SCREENING [facility] Start: 07-25-2020 FECAL OCCULT BLOOD FECAL OCCULT BLOO D [facility] Start: 07-25-2020 Hepatitis B screening URINE ALBUMIN:CREATININE RATIO [facility] Start: 07-25-2020 Hepatitis B surface antibody level LDL CHOLESTEROL [facility] Start: 07-25-2020 Screening for malign ant neoplasm of colon [facility] Start: 01-24-2020 Hemoglobin A1c measurement HbA1C [facility] Start: 01-24-2020 Hemoglobin A1c/Hemoglobin.total in Blood HBA1C [facility] Start: 2009 Hepatitis B Vaccine (1 of 3 - Risk 3-dose series) Hepatitis B Vaccine (1 of 3 - Risk 3-dose series) [facility] Start: 2009 RSV Vaccine (1 - 1-d ose 60+ series) RSV Vaccine (1 - 1-dose 60+ series) [facility] Start: 11-27-1999 SHINGRIX VACCINE (1 of 2) SHINGRIX VACCINE (1 of 2) [facility] Start: 1994 COLOGUARD (FIT-DNA) COLOGUARD (FIT-D NA) [facility] Start: 1994 Colonoscopy COLONOSCOPY [facility] Start: [address] COLONOGRAPHY [facility] Start: 1994 Screening for malign ant neoplasm of colon [facility] Start: 1994 SIGMOIDOSCOPY SIGMOIDOSCOPY [facility] Start: 1968 Urine microalbumin profile [facility] Start: 11-27-1967 ANNUAL PCP TEAM HOG PUSHER GERSON DISEASE VISIT ANNUAL PCP TEAM CHRONIC DISEASE VISIT [facility] Start: 11-27-1967 HEPATITIS C SCREENING HEPATITIS C [facility] Start: 11-27-1967 Hepatitis C screening Hepatitis C [facility] Start: 1961 Adult depression screening assessment DEPRESSION SCREENING [facility] Start: 11-27-1959 3 comp foot exam completed DIABETIC FOOT EXAM [facility] Start: 11-27-1959 Diabetic foot examination Diabetic Foot Exam [facility] Start: 11-27-1955 Pneumococcal Vaccine : 65+ (1 - PCV) Pneumococcal Vaccine: 65+ (1 - PCV) [facility] Start: 11-27-1955 Pneumococcal Vaccine : 65+ (1 of 2 - PCV) Pneumococcal Vaccine: 65+ (1 of 2 - PCV) [facility] Start: 11-27-1955 PNEUMOCOCCAL: 65+ (1 - PCV) PNEUMOCOCCAL: 65+ (1 - PCV) [facility] Start: 1949 ABDOMINAL AORTIC ANEURYSM SCREENING ABDOMINAL AORTIC ANEURYSM SCREENING [facility] Start: 1949 Abdominal aortic aneurysm screening Abdominal Aortic Aneurysm [facility] Immunizations Immunization Date Immunization Notes Care Provider Rosalind alvares 03-12-2022 SARS-CoV-2 mRNA ([id number] se) vaccine Jf SANCHES [facility] Comment on above: Result Comment: 2021: TPV70 11-14-2020 COVID-19 vaccine, ag e 12+ yr (PFIZER-BIONTECH - PURPLE TOP) Krissy Gray MD Work Phone: [facility] Comment on above: Result Comment: 2021: TPV70 10-24-2020 COVID-19 vaccine, ag e 12+ yr (PFIZER-BIONTECH - PURPLE TOP) Krissy Gray MD Work Phone: [facility] Comment on above: Result Comment: 2021: [id number] Payers Date Payer Category Payer Self-pay 2017 Unknown ANTHEM BLUE CROS S AND BLUE SHIELD AN[employer]M MEDIBL[employer] HMO [id number] 2017-Present [phone] [address] [place] [address] O [id number] 2017 Unknown [id number] 1959 Medicare [id number] 1949 Unknown [id number] 1949 Unknown [id number] 1949 Unknown [id number] 1949 Unknown [id number] 1949 Unknown [id number] 1949 Unknown [id number] Medicare Medicare [id number] Unknown [id number] Social History Date Type Detail Facility Start: 11-03-2016 End: 06-16-2022 Tobacco smoking status NHIS Smokes tobacco daily [facility] History of tobacco use Cigarette Smoker C [facility] Start: 11-03-2016 End: 10-24-2023 Cigarettes smoked current (pack per day) - Reported 1 [facility] Start: 11-03-2016 End: 06-16-2022 Tobacco use and exposure Smokeless tobacco non-user [facility] Start: 02-17-2022 End: 06-27-2023 Alcohol intake Current drinker of alcohol (finding) [facility] Start: 11-20-2018 History SDOH Alcohol Comment per day [facility] Start: 1950 Sex Assigned At Not on file [facility] Start: 06-28-2022 End: 10-15-2022 Tobacco smoking status Heavy tobacco smoker (finding) [facility] Start: 06-16-2022 End: 10-24-2023 Sex Assigned At Male [facility] Start: 1950 Sex Assigned At Male F [facility] National Score (1-10 0), lower number is lower risk 87 [facility] Medical Equipment Procedure Code Equipment Code Equipment Origin al Text Equipment Identifier Dates Lens Acrysof Iq +19.5 Diopter Natural Stableforce 0 D Biconvex 118.7 - [id number] Start: 02-07-2017 Functional Status Date Assessment Result Facility 10-15-2022 Functional Status N/A [facility] 06-28-2022 Functional Status N/A [facility] Clinical Notes 02-17-2022 to 10-24-2023 Patient Raven Reid - 10/24/2023 2:40 PM Marquis Agarwal La, OD - 06/06/2023 2:21 PM Lianet Gray MD - 06/16/2022 1:52 PM Lianet Gray MD - 02/17/2022 2:03 PM EDT Note Date & Type Note Facility 10-24-2023 Note HNO ID: [id number] Author: ?, ?, ? Service: ? Author Type: ? Type: Progress Notes Filed: 10/24/2023 15:09 Note Text: Gianfranco Martin [address] [place] [facility] [id number] 72 year old male with nuclear sclerotic senile, ERM, pseudophakia here today for elevated PSA (9 outside [facility]). PSA PSA PSA, PERCENT FREE Latest Ref Rng AND Units 0.00 - 2.59 ng/mL % 07/25/2019 5.34 (H) 6 07/25/2019 5.33 (H) HISTORY OF PRESENT ILLNESS: Location: prostate Severity Scale: see AUA score, see pathology Duration: several months Associated signs and symptoms: elevated PSA PAST MEDICAL HISTORY Diagnosis Date Cataract, nuclear sclerotic senile, right Epiretinal membrane (ERM) of left eye Pseudophakia of left eye Retinal detachment, left PAST SURGICAL HISTORY Procedure Laterality Date PAST SURGICAL HISTORY OF Left 2007 Retinal detachment, left eye, repaired in [place], [place] PAST SURGICAL HISTORY OF hernia sx, POST-CATARACT LASER SURGERY Left 06/16/2022 YAG Capsulotomy OS by Dr. Gray XCAPSL CTRC RMVL INSJ IO LENS PROSTH W/O ECP Left 02/07/2017 Cataract Extraction with PC IOL OS by Dr. Gray FAMILY HISTORY Problem Relation Age of Onset Hypertension Father No Ocular Disease Father Hypertension Mother No Ocular Disease Mother Diabetes Brother Hypertension Brother Heart Brother Social History Tobacco Use Smoking status: Every Day Packs/day: 1 Types: Cigarettes Smokeless tobacco: Never Vaping Use Vaping Use: Never used Substance Use Topics Alcohol use: Yes Alcohol/week: 4.0 standard drinks of alcohol Types: 4 Cans of Beer (12oz) per week Comment: per day Drug use: No MEDICATIONS: Current Outpatient Medications Medication Sig albuterol HFA (PROVENTIL HFA, VENTOLIN HFA) 90 mcg/actuation inhaler doxycycline (VIBRAMYCIN) 50 mg capsule Take 50 mg by mouth once daily. atorvastatin (LIPITOR) 10 mg tablet amLODIPine (NORVASC) 5 mg tablet Take 5 mg by mouth once daily. naltrexone (TREXAN) 50 mg tablet busPIRone (BUSPAR) 5 mg tablet metFORMIN (GLUCOPHAGE) 500 mg tablet furosemide (LASIX) 20 mg tablet losartan-hydrochlorothiazide (HYZAAR) 50-12.5 mg per tablet atenolol (TENORMIN) 50 mg tablet loratadine (CLARITIN) 10 mg tablet Take 10 mg by mouth once daily. Cholecalciferol, Vitamin D3, 50 mcg (2,000 unit) cap Take by mouth. FLUoxetine HCl (PROZAC) 40 mg capsule Take 40 mg by mouth once daily. (Patient not taking: Reported on 06/06/2023) MINOCYCLINE HCL (MINOCYCLINE ORAL) Take by mouth. traZODone (DESYREL) 150 mg tablet Take 150 mg by mouth daily at bedtime. No current facility-administered medications for this visit. ALLERGY: ALLERGIES Allergen Reactions Penicillins Rash REVIEW OF SYSTEMS GENERAL: No fever, no fatigue and no weight loss. HEAD AND NECK: No headache, no blurred vision and no hearing loss. CARDIOVASCULAR: No chest pain, no palpitations and no leg edema. RESPIRATORY: No cough, wheezing and no shortness of breath. : As indicated in HPI. GI: No epigastric discomfort, no blood in stool and no changes in bowel habits. MUSCLOSKELETAL: No neck pain, no back anin and no joint pain. SKIN: No varicose veins, no rash and no abnormal itching. NEUROLOGICAL: No numbness, no seizures and no tremor. BLOOD: No ekimosis, no hematomas or no bleeding from the gums. PHYSICAL EXAM: GENERAL: Alert, oriented and in no distress. +unsteady gait ABDOMEN: Soft, non tender with no masses or organomegaly. No CVA tenderness. HERNIA: Negative EXTREMITIES: No leg edema, No joint swelling GENITALIA: URO REC EX Prostate: size (30 grams), symmetrical, nontender, w/o nodules. Good anal sphincter tone. [facility] SYMPTOMS SCORE. Date 10/24/2023 1. INCOMPLETE EMPTYING 1 2. FREQUENCY 1 3. INTERMITTENCY 1 4. URGENCY 1 5. WEAK STREAM 2 6. STRAINING 1 7. NOCTURIA 1 TOTAL SCORE 8 IMPRESSION: (Diagnostic Possibilities): Elevated PSA (9 outside [facility] on 10/23/23) BPH wo obstruction, AUA 1-2 30 gm prostate on NATANAEL, no nodules PLAN: (Management Options): Elevated PSA: Counseled the patient regarding current guidelines for prostate cancer screening. I outlined AUA risk stratification (47% risk for prostate cancer given PSA value of ~9). Plan = PSA in 4 weeks + telehone visit in 5 weeks Will consider prostate biopsy if PSA elevated. Medical Decision Making: Problems: Moderate: New problem with uncertain prognosis Data: Unique test result(s) reviewed: 2 Unique test(s) ordered: 1 Medical Decision Making Level: 4 - Moderate By signing my name below, Raven Huggins, attest that this documentation has been prepared under the direction and in the presence of Dr. Hickman. Ayde Oliveira Provider Attestation: Ale Huggins M.D., personally performed the services describe (more content not included)... [facility] 10-24-2023 Instructions Raven Babcock - 10/24/2023 3:05 PM EST -PSA in 4 weeks at [facility] lab -Schedule telephone visit in 5 weeks to discuss PSA blood test documented in this encounter [facility] 10-24-2023 History of Present illness Narrative Gianfranco [address] [place] [address] 72 year old male with nuclear sclerotic senile, ERM, pseudophakia here today for elevated PSA (9 outside [facility]). PSA PSA PSA, PERCENT FREE Latest Ref Rng & Units 0.00 - 2.59 ng/mL % 07/25/2019 5.34 (H) 6 07/25/2019 5.33 (H) HISTORY OF PRESENT ILLNESS: Location: prostate Severity Scale: see AUA score, see pathology Duration: several months Associated signs and symptoms: elevated PSA PAST MEDICAL HISTORY Diagnosis Date Cataract, nuclear sclerotic senile, right Epiretinal membrane (ERM) of left eye Pseudophakia of left eye Retinal detachment, left PAST SURGICAL HISTORY Procedure Laterality Date PAST SURGICAL HISTORY OF Left 2007 Retinal detachment, left eye, repaired in [place], [place] PAST SURGICAL HISTORY OF hernia sx, POST-CATARACT LASER SURGERY Left 06/16/2022 YAG Capsulotomy OS by Dr. Gray XCAPSL CTRC RMVL INSJ IO LENS PROSTH W/O ECP Left 02/07/2017 Cataract Extraction with PC IOL OS by Dr. Gray FAMILY HISTORY Problem Relation Age of Onset Hypertension Father No Ocular Disease Father Hypertension Mother No Ocular Disease Mother Diabetes Brother Hypertension Brother Heart Brother Social History Tobacco Use Smoking status: Every Day Packs/day: 1 Types: Cigarettes Smokeless tobacco: Never Vaping Use Vaping Use: Never used Substance Use Topics Alcohol use: Yes Alcohol/week: 4.0 standard drinks of alcohol Types: 4 Cans of Beer (12oz) per week Comment: per day Drug use: No MEDICATIONS: Current Outpatient Medications Medication Sig albuterol HFA (PROVENTIL HFA, VENTOLIN HFA) 90 mcg/actuation inhaler doxycycline (VIBRAMYCIN) 50 mg capsule Take 50 mg by mouth once daily. atorvastatin (LIPITOR) 10 mg tablet amLODIPine (NORVASC) 5 mg tablet Take 5 mg by mouth once daily. naltrexone (TREXAN) 50 mg tablet busPIRone (BUSPAR) 5 mg tablet metFORMIN (GLUCOPHAGE) 500 mg tablet furosemide (LASIX) 20 mg tablet losartan-hydrochlorothiazide (HYZAAR) 50-12.5 mg per tablet atenolol (TENORMIN) 50 mg tablet loratadine (CLARITIN) 10 mg tablet Take 10 mg by mouth once daily. Cholecalciferol, Vitamin D3, 50 mcg (2,000 unit) cap Take by mouth. FLUoxetine HCl (PROZAC) 40 mg capsule Take 40 mg by mouth once daily. (Patient not taking: Reported on 06/06/2023) MINOCYCLINE HCL (MINOCYCLINE ORAL) Take by mouth. traZODone (DESYREL) 150 mg tablet Take 150 mg by mouth daily at bedtime. No current facility-administered medications for this visit. ALLERGY: ALLERGIES Allergen Reactions Penicillins Rash REVIEW OF SYSTEMS GENERAL: No fever, no fatigue and no weight loss. HEAD & NECK: No headache, no blurred vision and no hearing loss. CARDIOVASCULAR: No chest pain, no palpitations and no leg edema. RESPIRATORY: No cough, wheezing and no shortness of breath. : As indicated in HPI. GI: No epigastric discomfort, no blood in stool and no changes in bowel habits. MUSCLOSKELETAL: No neck pain, no back anin and no joint pain. SKIN: No varicose veins, no rash and no abnormal itching. NEUROLOGICAL: No numbness, no seizures and no tremor. BLOOD: No ekimosis, no hematomas or no bleeding from the gums. PHYSICAL EXAM: GENERAL: Alert, oriented and in no distress. +unsteady gait ABDOMEN: Soft, non tender with no masses or organomegaly. No CVA tenderness. HERNIA: Negative EXTREMITIES: No leg edema, No joint swelling GENITALIA: URO REC EX Prostate: size (30 grams), symmetrical, nontender, w/o nodules. Good anal sphincter tone. [facility] SYMPTOMS SCORE. Date 10/24/2023 1. INCOMPLETE EMPTYING 1 2. FREQUENCY 1 3. INTERMITTENCY 1 4. URGENCY 1 5. WEAK STREAM 2 6. STRAINING 1 7. NOCTURIA 1 TOTAL SCORE 8 IMPRESSION: (Diagnostic Possibilities): Elevated PSA (9 outside [facility] on 10/23/23) BPH wo obstruction, AUA 1-2 30 gm prostate on NATANAEL, no nodules PLAN: (Management Options): Elevated PSA: Counseled the patient regarding current guidelines for prostate cancer screening. I outlined AUA risk stratification (47% risk for prostate cancer given PSA value of ~9). Plan = PSA in 4 weeks + telehone visit in 5 weeks Will consider prostate biopsy if PSA elevated. Medical Decision Making: Problems: Moderate: New problem with uncertain prognosis Data: Unique test result(s) reviewed: 2 Unique test(s) ordered: 1 Medical Decision Making Level: 4 - Moderate By signing my name below, I, Raven Babcock, attest that this documentation has been prepared under the direction and in the presence of Dr. Hickman. Ayde Oliveira Provider Attestation: IAle M.D., personally performed the services described in this documentation. All medical record entries made by the scribe were at my direction and in my presence. I have reviewed the chart and discharge instructions (if applicable) and agree that the record reflects my personal performance and is accurate and complete. Ale Hickman M.D. documented in this encounter [facility] 10-21-2023 Note PCP increased lasix to 40 mg daily, and I started aldactone at last visit. Renal function remains normal [facility] 10-21-2023 Note Patient is unsure of his medications, why he takes each med and sometimes not sure if he is taking them once or twice a day [facility] 10-21-2023 Note Hypertension is stil l elevated and leg swelling pt states is unchanged Resume norvasc 5 mg daily, continue atenolol, losartan bid, aldactone and lasix [facility] 10-21-2023 Note Patient here for 1 m o follow up hypertension. Amlodipine was stopped last month due to LE edema. He was started on spironolactone. Had labs a few weeks ago. Started PT for his hip. He says PCP increased furosemide to 40mg at some point but he isn't sure when. Denies change in SOB and LE edema, but is down 8# since visit last month. Still denies chest pain, palpitations, and lightheadedness/syncope. Review of Systems Cardiovascular: Positive for dyspnea on exertion and leg swelling. Respiratory: Positive for shortness of breath. Skin: Positive for color change and dry skin. Musculoskeletal: Positive for arthritis, back pain, joint pain and myalgias. All other systems reviewed and are negative. [facility] 10-21-2023 Note [facility] CARDIOLOGY PROGR ESS NOTE HPI: Gianfranco Martin is a 72 y.o. male here for 1 kristen F/U HPI 72 y.o. male here for HTN and shortness of breath Patient here for 1 mo follow up hypertension. Amlodipine was stopped last month due to LE edema. He was started on spironolactone. Had labs a few weeks ago. Started PT for his hip. He says PCP increased furosemide to 40mg at some point but he isn't sure when. Denies change in SOB and LE edema, but is down 8# since visit last month. Still denies chest pain, palpitations, and lightheadedness/syncope. Review of Systems Cardiovascular: Positive for dyspnea on exertion and leg swelling. Respiratory: Positive for shortness of breath. Skin: Positive for color change and dry skin. Musculoskeletal: Positive for arthritis, back pain, joint pain and myalgias. All other systems reviewed and are negative. Visit Vitals BP 172/85 (BP Location: Right arm, Patient Position: Sitting) Pulse 80 Ht 1.753 m (5' 9 ) Wt 98.9 kg (218 lb) SpO2 98% BMI 32.19 kg/m??? Smoking Status Every Day BSA 2.19 m??? Allergies Allergen Reactions Amlodipine Swelling Penicillin Unknown and Other Medications: Current Outpatient [...] morning. furosemide (Lasix) 20 mg tablet Take 40 mg by mouth in the morning. loratadine (Claritin) 10 mg tablet 1 (one) time each day at the same time. losartan (Cozaar) 50 mg tablet Take 50 mg by mouth in the morning. metFORMIN (Glucophage) 500 mg tablet every 12 (twelve) hours. potassium chloride ER (Micro-K) 10 mEq ER capsule TAKE 1 CAPSULE BY MOUTH TWICE DAILY WITH FOOD spironolactone (Aldactone) 25 mg tablet Take 1 tablet (25 mg) by mouth in the morning. 90 tablet 3 traZODone (Desyrel) 150 mg tablet 1 (one) time each day at the same time. No current facility-administered medications on file prior to visit. Physical Exam: Constitutional: Appearance: Normal appearance. Without apparent distress, obese HENT: Head: Normocephalic and atraumatic. Nose: Nose normal. Mouth/Throat: Mouth: Mucous membranes are moist. Eyes: Extraocular Movements: Extraocular movements intact. Conjunctiva/sclera: Conjunctivae normal. Neck: Vascular: No JVD. Cardiovascular: Rate and Rhythm: Normal rate and regular rhythm. Pulses: Radial pulses are 3 on the right side [...] back: Normal range of motion. Right lower le-2+ pitting edema. Left lower le-2+ pitting edema. Skin: General: Skin is warm and dry. Capillary Refill: Capillary refill takes less than 2 seconds. Neurological: General: No focal deficit present. Mental Status: he is alert and oriented to person, place, and time. Psychiatric: Mood and Affect: Mood normal. Behavior: Behavior normal. Thought Content: Thought content normal. Judgment: Judgment normal. Labs: 10/06/23 07/06/23 CBC normal K+ 4.0, BUN 6, CR 0.88, GFR > 60 A1C 6.8 Liver function normal Trig 78, Chol 106, HDL 53, LDL 37.4 Last lab values have been reviewed CV Testing: EKG today Sinus rhythm with Rt BBB, no acute concerns TTE 06/14/23 Assessment/Plan: Hypertension Hypertension is still elevated and leg swelling pt states is unchanged Resume norvasc 5 mg daily, continue atenolol, losartan bid, aldactone and lasix Noncompliance with treatment Patient is unsure of his medications, why he takes each med and sometimes not sure if he is taking them once or twice a day Bilateral edema of lower extremity PCP increased lasix to 40 mg daily, and I started aldactone at last visit. Renal function remains normal RTC 3 months and provided pt with updated med list and wrote reason for each medication that he takes. [facility] 09-21-2023 Note Start aldactone and continue lasix 40 mg daily Repeat bmp 1 week [facility] 09-21-2023 Note Hypertension is unco ntrolled, and with leg swelling/edema asked pt to stop norvasc and start aldactone. Repeat labs in 1 week and to notify office for any concerns/ side effects- muscle cramps, tenderness. Pt does not check b/p at home [facility] 09-21-2023 Note Recommended smoking cessation- pt is not agreeable at this time [facility] 09-21-2023 Note Reports WILLAMS, noted w eight [...] week to check renal function and electrolytes. [facility] 09-21-2023 Note [facility] CARDIOLOGY PROGR ESS NOTE [...] and he may proceed with physical therapy. [facility] 09-21-2023 Note Patient here for car diac [...] All other systems reviewed and are negative. [facility] 08-26-2023 Note Cardiology Clinic No te Chief [...] time -Optimize med (more content not included)... [facility] 08-26-2023 Note New patient here to establish care. Ref from Daina Judge CNP for hypertension. She ordered stress test recently but he was unable to complete it due to inability to lie flat. He smokes 1.5 PPD and drinks about 5 beers daily. Denies chest pain, palpitations, and lightheadedness. Says his LE are always taut and swollen. [facility] 06-27-2023 Note HNO ID: [id number] Author: Kenyon Angel OD Service: ? Author Type: [employer]AT [employer]ING ASSEMBLER Type: Progress Notes Filed: 06/27/2023 1:37 PM [...] Angel, OD June 27, 2023 1:37 PM [facility] 06-06-2023 Note HNO ID: [id number] Author: Marquis Weaver OD Service: ? Author Type: [employer] SPRING ASSEMBLER Type: Progress Notes Filed: 06/06/2023 2:29 PM [...] of its relevant components. Marquis Weaver, JOEL June 06, 2023 2:22 PM [facility] 06-06-2023 History of Present illness Narrative [...] of its relevant components. Marquis Weaver, JOEL June 06, 2023 2:22 PM documented in this encounter [facility] 10-15-2022 Hospital Discharge instructions Patient Education [...] one of these risk factors: ?Being of -[place] descent. ?Having a family history of prostate [...] you: Are older than age 55. Are -[place]. Have a father, brother, or uncle who [...] 05/19/2018 Document Revised: 07/21/2018 Document Reviewed: 05/19/2018 ABS Patient Education 2020 [employer]. Follow Up Care 10/05/2022 09:16:20 With:SELENA LEONG, Jf Reis, URL Address: [address] [place], [place] [id number]- When: Unknown [facility] 06-28-2022 Note Chief Complaint Referral-Elevated PSA HPI [...] Follow-up With When Contact Information SELENA LEONG, Jf Reis, URL [facility] [address], [place] [address] [phone] Additional Instructions: pt will f/u based on MRI results Patient Education Benign Prostatic Hyperplasia Letitia Huggins, personally scribed for Dr. Sanches on 06/28/2022 14:12:52. . Documentation recorded by the scribLetitia woodruff, accurately reflects the services(s) I performed [...] Father. Immunizations Vaccine Date Status Comments SARSCoV2 mRNA(whzqjwewo-mjjh-mrptrc) vac 03/12/2022 Recorded 2022-06-28: TPV70 SARS-CoV-2 (COVID-19) mRNA BNT-162b2 vax 11/14/2020 Recorded 2022-06-28: TPV70 SARS-CoV-2 (COVID-19) mRNA BNT-162b2 vax 10/24/2020 Recorded 2022-06-28: TPV70 Lab Results Test Name Test Result Date/Time PSA, External 6.8 ng/mL 05/20/2022 08:26 EDT PSA, External 8.41 ng/mL 05/12/2022 08:25 EDT Diagnostic Results Test (more content not included)... [facility] Comment on above: Result Comment: Elec tronically Signed By: Jf SANCHES MD\.br\Date and Time Signed: 06/28/22 14:16 [...] urethra. Follow these instructions at home: Take dnsf-gah-awbbnmf and prescription medicines only as told by [...] 08/08/2006 Document Revised: 07/03/2019 Document Reviewed: 09/12/2017 ABS Patient Education 2020 [employer]. Follow Up Care 05/27/2022 15:25:17 With:SELENA LEONG, Jf Reis, URL Address: [facility] [address] , [place] [phone] When: Unknown [facility] [place] 06-16-2022 History of Present illness Narrative ASSESSMENT/PLAN: [...] Z96.1 -S/P PCIOL Left eye (02/07/17) Aim: [place] by Dr. Ana farnsworth; He states that he is happy using OTC readers and declines appt for refraction with security inspector 3. Nuclear senile cataract of right eye - ICD9: 366.16, ICD10: H25.11 He is still happy enough with his vision and opts to follow up with Dr. Gray January 2023 for exam/cataract evaluation 4. History of retinal detachment - left eye - ICD9: V12.49, ICD10: Z86.69 history of retinal detachment repair OS 2007 in [place]. Call/come in for evaluation immediately if [...] with Dr. Gray or sooner as needed Krissy Gray MD The documentation for this note was completed by SENTHIL Ballesteros acting as a scribe for, and in the presence of, Dr. Krissy Gray M.D. 06/16/22 The documentation recorded by [...] agree with all of its relevant components. Krissy Gray MD documented in this encounter [facility] 03-01-2022 History of Present illness Narrative [...] ICD9: 366.16, ICD10: H25.[address] Krissy Gray 4. History of retinal detachment - [...] 2022 4:08 PM documented in this encounter [facility] 02-26-2022 Miscellaneous Notes Called to let patient know we were able to get him an appointment in [place] at 4pm, left message. SENTHIL Ballesteros February 26, 2022 3:[address] Gray and she recommends that he be seen today. Please reach out to Patient to see if we can get appointment. SENTHIL Ballesteros February 26, 2022 2:57 PM documented in this encounter [facility] 02-17-2022 History of Present illness Narrative [...] h/o retinal detachment repair OS 2007 in [place]. Stable. Call/come in for evaluation immediately if [...] eye -S/P PCIOL Left eye (02/07/17) Aim: [place] by Dr. Gray Signs and symptoms of posterior capsular opacification were reviewed. Discussed possible eventual need for Yag laser posterior capsulotomy. Patient is still happy enough with vision, so declines Yag procedure for now. stable; he remains happy with his vision OS and with OTC readers If he wishes to get new glasses, previously offered an undilated refraction with our optometrists in [place]; he was told that vision with new glasses would not be perfect due to cataract OD; he also has mild PCO OS and Epiretinal membrane OS. He sees a nurse practitioner in [place] Offered for him to establish with a PSYCHIATRIC manager women in [place] Return to clinic in 12 months for cataract evaluation OD and possible Yag PC OS with Dr. Gray or sooner if needed. Krissy Gray MD The documentation for this note was completed by SENTHIL Mckeon acting as a scribe for, and in the presence of, Dr. Krissy Gray M.D. The documentation recorded by the [...] agree with all of its relevant components. Krissy Gray MD 02/17/22 documented in this encounter [facility] Evaluation + Plan note No data available for this section [facility] Evaluation note Diagnosis Nuclear senile cataract [...] by other means [facility] Diagnosis 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, left- [...] both upper eyelids [facility] Diagnosis 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, left- Primary [...] stated as uncontrolled [facility] noteNo assessment information availableThe [facility] Work Phone: Evaluation note* Diagnosis OPENED IN ERROR- Primary To allow closing an encounter opened in error (used in SmartSet) documented [facility]* Diagnosis Type 2 diabetes mellitus without [...] and sense organs documented in this encounter [facility] note* Diagnosis Elevated prostate specific antigen (PSA)- Primary BPH without obstruction/lower urinary tract symptoms Hypertrophy of prostate without urinary obstruction and other lower urinary tract symptoms (LUTS) [facility] No data available for this section [facility] No data available for this section [facility] Medications Administered Section Active Administered Medications - up to 3 most recent administrations Medication Order MAR Action Action Date Dose Rate Site fluorescein-benoxinate 0.25-0.4 % 1 Drop (FLURESS) 1 Drop, BOTH EYES, DIRECTED, Starting on Tue02/17/22 at 1330, Until Tue02/18/22 at 0129, Administer for applanation tonometry. In the event of a Fluress shortage, administer 1 drop of Orange-Fluor into both eyes as directed for applanation [...] the event of a Fluress shortage, administer Orange-Fluor 1 drop into both eyes as directed [...] FoundDocuments on File Type Date Recorded Patient Corporate Strategy Associate Expl anation Advance Directive(s) 02/07/2017 9:56 AM [...] or prosecute any alcohol or drug abuse patient.[facility] the event this information is protected by the Federal Confidentiality of Alcohol and Drug Abuse Patient Records regulations: The Federal rules restrict any use of the information to criminally investigate or prosecute any alcohol or drug abuse patient.[facility] Hospital[facility] the event this information is protected by the Federal Confidentiality of Alcohol and Drug Abuse Patient Records regulations: The Federal rules restrict any use of the information to criminally investigate or prosecute any alcohol or drug abuse patient.[facility] Hospital[facility] the event this information is protected by the Federal Confidentiality of Alcohol and Drug Abuse Patient Records regulations: The Federal rules restrict any use of the information to criminally investigate or prosecute any alcohol or drug abuse patient.[facility] Hospital[facility] the event this information is protected by the Federal Confidentiality of Alcohol and Drug Abuse Patient Records regulations: The Federal rules restrict any use of the information to criminally investigate or prosecute any alcohol or drug abuse patient.[facility] HospitalIn the event this information is protected by the Federal Confidentiality of Alcohol and Drug Abuse Patient Records regulations: The Federal rules restrict any use of the information to criminally investigate or prosecute any alcohol or drug abuse patient.[facility] Hospital[facility] the event this information is protected by the Federal Confidentiality of Alcohol and Drug Abuse Patient Records regulations: The Federal rules restrict any use of the information to criminally investigate or prosecute any alcohol or drug abuse patient.[facility] Reason for Visit (unrecogniz ed section and content) Reason Comments Cataract Follow Up Reason Comments Nuclear senile cataract of right eye Epiretinal membrane (ERM) of left eye 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 Reason Comments YAG Evaluation Reason Comments Opened In Error Reason Comments Pseudophakia Diabetes Reason Comments Consult Care Teams (unrecognized sec tion and content) Online Retailer Relationship Specialty Start Date End Date Raul Sun MD PCP - General Family Practice 02/11/21 Online Retailer Relationship Specialty Start Date End Date Raul Sun MD PCP - General Family Practice 02/11/21 Online Retailer Relationship Specialty Start Date End Date Raul Sun MD PCP - General Family Practice 02/11/21 Online Retailer Relationship Specialty Start Date End Date Raul Sun MD PCP - General Family Medicine 02/11/21 Team Status: Inactive Member Role Status Dates Jf Sanches MD Attending Provider Active AMMY Darling Primary Care Provider Active Team Status: Active Member Role Status Dates Daina Judge NP-[place] Primary Care Provider Active Online Retailer Relationship Specialty Start Date End Date Raul Sun MD PCP - General Family Medicine 02/11/21 Online Retailer Relationship Specialty Start Date End Date Raul Sun MD PCP - General Family Medicine 02/11/21 Online Retailer Relationship Specialty Start Date End Date Raul Sun MD PCP - General Family Medicine 02/11/21 Daina Judge CNP [address] [place] [address] Referring Internal Medicine 10/15/23 Goals (unrecognized section and content) Goals may be documented in a n alternate section (unrecognized sect ion and content) No Status Records FoundNo Status Records FoundNo Status Records FoundNo Status Records FoundNo Status Records Found INFORMATION SOURCE (unrecogn ized section and content) DATE CREATED AUTHOR 07/29/2022 [facility] DATE CREATED AUTHOR AUTHOR'S ORGANIZ ATION 10/28/2022 [facility] DATE CREATED AUTHOR AUTHOR'S ORGANIZ ATION 12/01/2022 [facility] DATE CREATED AUTHOR AUTHOR'S ORGANIZ ATION 10/23/2023 [facility] DATE CREATED AUTHOR AUTHOR'S ORGANIZ ATION 10/25/2023 [facility] FOR RECORDS PERTAINING TO PATIENTS WHO [...] BE BASED ON THE PRIMARY CLINICAL RECORDS. [facility]. provides no warranty or guarantee of the accuracy or completeness of information in this document.
--- NOTE | 2023-11-21 13:26 | P.CN_ITS ---
Consult Note: HPI Data of Consult Patient: new to practice Consult date: 11/21/23 Requesting Physician: Trevor Forte MD Primary Care Provider: ENOC JUDGE Consult Narrative Reason for consult: right hip pain, right low back pain Narrative: 72yom who presents for evaluation. significant right hip pain with radiation into the right groin. also right low back pain. has engaged in >6 weeks of provider directed home exercises and physical therapy, without benefit. hip xr shows moderate osteoarthritis. uses diclofenac, with minimal benefit. denies adverse med side effects. cc:: CC: Trevor Forte MD Review of Systems ROS Status of ROS 10 or more systems reviewed and unremark able except as noted in history and below Meds Home Medications and Allergies Home Medications ?Medication ?Instructions ?Recorded ?Confirmed ?Type diclofenac sodium 50 mg 50 mg PO Q12H PRN pain 5 days #10 07/27/23 Rx tablet,delayed release tabs Allergies Allergy/AdvReac Type Severity Reaction Status Date / Time Penicillins Allergy Severe Verified 07/27/23 12:04 Exam Narrative Exam Narrative: Psych-alert and oriented x 3.? Attentive and appropriate, constitutionally normal, displays normal mood and affect per situation.? There are no obvious deficits in memory, reasoning, or intellect.? Skin-no obvious rashes, bruising, erythema noted to the patient's area of pain. Extremities- extremities are warm with minimal edema and palpable pulses. Hip-tenderness to palpation is noted over the right hip joint.? Pain is elicited with internal and external rotation of the hip.? Hip provocative maneuvers are positive and consistent with the patient's normal pain.? Coordination remains intact.? Gait remains antalgic. Assessment and Plan Assessment and Plan (1) Hip osteoarthritis: Qualifiers: Laterality: right Osteoarthritis type: primary Qualified Code(s): M16.11 - Unilateral primary osteoarthritis, right hip (2) Lumbago: Qualifiers: Chronicity: chronic Back pain laterality: right Sciatica presence: unspecified whether sciatica present Qualified Code(s): M54.50 - Low back pain, unspecified; G89.29 - Other chronic pain Plan 72yom who presents for evaluation. failed conservative measures, as noted. imaging reviewed, as noted. given symptoms and imaging, will have him undergo right hip injection under fluoroscopic guidance. he is in agreement. will also have him undergo lumbar xr. medications reviewed. will have him trial flexeril 10mg tid prn. follow up after procedure and imaging.
== END 2023-11-21 12:56 | disposition home or self-care (01) ==
LOC: PM 12:56
PROVIDERS: PCP Nurse Practitioner Family; Visit Provider Anesthesiology
DX: M16.11 Unilateral primary osteoarthritis, right hip (principal); M54.50 Low back pain, unspecified; G89.29 Other chronic pain
CPT/HCPCS: G0463

== ENCOUNTER 2023-12-08 15:05 | Outpatient (OUT) | payer MEDICARE, SELFPAY ==
--- NOTE | 2023-12-08 15:33 | XR_ITS ---
[facility] [place] [id number] Patient Name: GIANFRANCO LEBLANC MRN: [id number] date: 1950 Sex: M Assigned Patient [facility]: [facility] Current Patient Location: [facility] Accession/Order Number: [id number] Exam Date: 12/08/2023 15:20 Report Date: 12/10/2023 06:38 At the request of: LANA KRUEGER Procedure: XR lumbar spine 6V w bending EXAMINATION: XR lumbar spine 6V w bending HISTORY: low back pain , chronic hip pain COMPARISON: No relevant comparison available. FINDINGS: BONES: Mild grade 1 anterior listhesis of L4 on 5; no significant change during flexion and extension.. No fracture or bone lesion. Moderate-marked degenerative facet arthropathy L3-L4 through L5-S1. DISC SPACES: Slight narrowing L4-L5. PARASPINOUS: Marked atherosclerotic disease of aorta; no appreciable aneurysm. OTHER: Negative. XR/XR lumbar spine 6V w bending IMPRESSION: 1. Grade 1 anterior listhesis and minimal disc space narrowing L4-L5. 2. Multilevel degenerative facet arthropathy. Electronically authenticated by: SAMI PARKER Date: 12/10/2023 06:38
== END 2023-12-08 15:06 | disposition home or self-care (01) ==
LOC: RAD 15:11
PROVIDERS: PCP Nurse Practitioner Family; Visit Provider Anesthesiology
DX: M54.50 Low back pain, unspecified (principal); M47.816 Spondylosis without myelopathy or radiculopathy, lumbar region
CPT/HCPCS: 72114

== ENCOUNTER 2023-12-26 09:59 | Day surgery (SDC) | payer MEDICARE, SELFPAY ==
[2023-12-26 10:17] VITALS: BP 108/70; PULSE 77; TEMP 36.5; O2SAT 96
[2023-12-26] MEDS: TRIAMCINOLONE ACETONIDE 40 MG/ML VIAL IM (10:51)
[2023-12-26] MEDS: BUPIVACAINE HCL 0.25% PF 25 MG/10 ML VIAL INJ (10:51)
[2023-12-26] MEDS: LIDOCAINE HCL 2% PF 100 MG/5 ML VIAL INJ (10:51)
[2023-12-26] MEDS: IOHEXOL 240 MG/ML - 10 ML VIAL INJ (10:51)
--- NOTE | 2023-12-26 10:52 | W.PM.PROCNOT ---
Date of procedure: 12/26/23 Pre-op diagnosis: Right hip osteoarthritis Post-op diagnosis: same as pre-op Procedure: Procedure: Right hip intraarticular injection Medications: Bupivacaine 0.25% 3cc, kenalog 40mg I explained the details of the procedure to the patient including the risks, benefits and alternatives. We had an informed discussion and the patient verbalized understanding and signed the consent form. All questions were answered appropriately.? A time out was performed.? After obtaining a comfortable supine position, the skin overlying the hip, subtrochanteric region, and joint space were prepped with alcohol. A sterile syringe containing the above medication was attached to a 25 guage, 3.5 inch spinal needle under strict aseptic technique. X ray was used to identify the joint space and the femoral neck on the right side.? The needle was than advanced through the subcutaneous tissue after local injection of 1% lidocaine.? The contents of the syringe were gently injected without any resistance into the joint space after contrast (isovue) outlined the appropriate area. The needle was removed and pressure was applied to the injection site to decrease the incidence of ecchymosis and hematoma formation.? A sterile bandage was applied. Post procedural instructions were given to the patient. Anesthesia: Local Surgeon: Trevor Forte Pathology: none sent Condition: stable Disposition: no change
[2023-12-26 10:53] VITALS: BP 140/61; PULSE 75; PULSE 76; O2SAT 97; O2SAT 98
== END 2023-12-26 10:58 | disposition home or self-care (01) ==
PROVIDERS: PCP Nurse Practitioner Family; Visit Provider Anesthesiology
DX: M16.11 Unilateral primary osteoarthritis, right hip (principal)
CPT/HCPCS: 20610; 77002; Q9966

== ENCOUNTER 2024-01-04 14:22 | Outpatient (OUT) | payer MEDICARE, SELFPAY ==
--- NOTE | 2024-01-04 14:39 | PM.CN ---
Consult Note: HPI Data of Consult Patient: known to practice within the last 3 years Consult date: 11/21/23 Requesting Physician: Alicia Ramirez NP Primary Care Provider: ENOC JUDGE Consult Narrative Reason for consult: right hip pain, right low back pain Narrative: 72yom who presents for evaluation. significant right hip pain with radiation into the right groin. also right low back pain. has engaged in >6 weeks of provider directed home exercises and physical therapy, without benefit. hip xr shows moderate osteoarthritis. uses diclofenac, with minimal benefit, no change since starting flexeril 10mg TID PRN. denies adverse med side effects. Recent right hip injection providing relief, patient unsure overall how much relief but does notice less often and less intense. Pain today 11/29. MY 34% previously 38%. cc:: CC: Alicia Ramirez NP Review of Systems ROS Status of ROS 10 or more systems reviewed and unremarkable except as noted in history and below PFSH PFS Medical History (Updated 12/02/23 @ 15:26 by Millie Pineda) Smoker ?F17.200 - Nicotine dependence, unspecified, uncomplicated (ICD-10) Hypertension ?I10 - Essential (primary) hypertension (ICD-10) Surgical History (Updated 12/02/23 @ 15:26 by Millie Pineda) H/O hernia repair ?Z98.890 - Other specified postprocedural states (ICD-10) ?Z87.19 - Personal history of other diseases of the digestive system (ICD-10) H/O detached retina repair ?Z98.890 - Other specified postprocedural states (ICD-10) ?Z86.69 - Personal history of other diseases of the nervous system and sense organs (ICD-10) Meds Home Medications and Allergies Home Medications ?Medication ?Instructions ?Recorded ?Confirmed ?Type atenolol 50 mg tablet 50 mg PO DAILY 12/09/23 12/26/23 History atorvastatin 10 mg tablet 10 mg PO DAILY 12/09/23 12/26/23 History buspirone 10 mg tablet 10 mg PO BID 12/09/23 12/26/23 History cyclobenzaprine 10 mg tablet 10 mg PO TID 12/09/23 12/26/23 History diclofenac sodium 75 mg 75 mg PO Q12H 12/09/23 12/26/23 History tablet,delayed release furosemide 20 mg tablet 20 mg PO DAILY 12/09/23 12/26/23 History loratadine 10 mg tablet 10 mg PO DAILY 12/09/23 12/26/23 History losartan 50 mg tablet 50 mg PO BID 12/09/23 12/26/23 History metformin 500 mg tablet 500 mg PO BID 12/09/23 12/26/23 History trazodone 150 mg tablet 150 mg PO BEDTIME 12/09/23 12/26/23 History Allergies Allergy/AdvReac Type Severity Reaction Status Date / Time Penicillins Allergy Severe Verified 12/26/23 10:24 Exam Narrative Exam Narrative: Psych-alert and oriented x 3.? Attentive and appropriate, constitutionally normal, displays normal mood and affect per situation.? There are no obvious deficits in memory, reasoning, or intellect.? Skin-no obvious rashes, bruising, erythema noted to the patient's area of pain. Extremities- extremities are warm with minimal edema and palpable pulses. Hip-tenderness to palpation is noted over the right hip joint.? Pain is elicited with internal rotation of the hip.?little to no pain with external rotation. Hip provocative maneuvers are positive and consistent with the patient's normal pain.? Coordination remains intact.? Gait remains antalgic. Constitutional Documenting provider has reviewed patient's vital signs: yes Common normals: no apparent distress, oriented x3, healthy appearing, alert and well nourished General appearance: cooperative [facility] Common normals: normocephalic, hearing grossly normal bilaterally and moist oral mucous membranes Head and scalp: normocephalic Eye Common normals: PERRL Pupil: PERRL Neck & C-Spine Common normals: full ROM General: normal visual inspection Chest Common normals: inspection of chest normal Respiratory Common normals: normal respiratory effort, no retractions and no use of accessory muscles Back & Pelvis Lumbar spine/lower back: normal to inspection, lumbar ROM normal and straight leg raise negative bilaterally Other: negative facet loading Neuro Common normals: oriented x3, CN's II-XII intact bilaterally, moves all extremities, no focal motor deficits, no sensory deficits noted and deep tendon reflexes 2+ bilaterally Sensorium/orientation: alert Motor exam: strength 5/5 throughout and no movement abnormalities noted Psych Common normals: mental status grossly normal, thought process normal, cooperative, affect normal, speech normal and activity/motor behavior normal Speech: normal speech Thought process: normal thought process Results Additional Findings Additional findings: If on a controlled substance or opioids, I have checked an [place] report on this patient and there are no aberrancies noted in the prescribing history.??If on a controlled substance or opioid a drug screen was completed and reviewed within the last year, and if there has not been a drug screen completed we ordered one today to monitor higher risk, state monitored pain medication use. As part of providing excellent, safe, comprehensive care, the following was completed at our patient's visit: 1. A medication reconciliation and review to ensure accurate knowledge of current/active medications, including asking our patients to inform us about any mywr-fpg-[id number] medications or herbal remedies/nutritional supplements/alternative remedies. 2. A review to specifically ensure our patients have had annual screening for screening for depression, screening for tobacco use, and screening for unhealthy alcohol use. For concerning screenings had a discussion with the patient, provided patient education, and recommended follow-up with primary care provider when appropriate. If patient noted with a risk of falling, they received education on strength, gait, and balance training to prevent future risk of falling. Assessment and Plan Assessment and Plan (1) Hip osteoarthritis: Qualifiers: Laterality: right Osteoarthritis type: primary Qualified Code(s): M16.11 - Unilateral primary osteoarthritis, right hip (2) Lumbago: Qualifiers: Chronicity: chronic Back pain laterality: right Sciatica presence: unspecified whether sciatica present Qualified Code(s): M54.50 - Low back pain, unspecified; G89.29 - Other chronic pain Plan lumbar xray reviewed with patient continue current medications declining NSAID rotation f/u 3 months, sooner if needed
== END 2024-01-04 14:23 | disposition home or self-care (01) ==
LOC: PM 14:22
PROVIDERS: PCP Nurse Practitioner Family; Visit Provider Nurse Practitioner
DX: M16.11 Unilateral primary osteoarthritis, right hip (principal); M54.50 Low back pain, unspecified; G89.29 Other chronic pain
CPT/HCPCS: G0463

== ENCOUNTER 2024-04-05 14:11 | Outpatient (OUT) | payer MEDICARE, SELFPAY ==
--- NOTE | 2024-04-05 14:31 | PM.CN ---
Consult Note: HPI Data of Consult Patient: known to practice within the last 3 years Requesting Physician: Alicia Ramirez NP Primary Care Provider: ENOC JUDGE Consult Narrative Reason for consult: f/u Narrative: Moses Martin a 73 year old male presents for evaluation of chronic right hip pain. Patient unsure if previous injections were helpful however he no longer has right hip/groin pain, biggest complaint is intermittent stabbing pain in low back into left thigh. Pain today 9/10 at worst 8/10 with standing walking and stairs. Patient utilizes flexeril 10mg TID PRN, diclofenac 75mg BID, trazadone 150mg HS with unkown response, denies side effects. cc:: CC: Alicia Ramirez NP Review of Systems ROS Status of ROS 10 or more systems reviewed and unremarkable except as noted in history and below [facility] Medical History (Updated 12/02/23 @ 15:26 by Millie Pineda) Smoker ?F17.200 - Nicotine dependence, unspecified, uncomplicated (ICD-10) Hypertension ?I10 - Essential (primary) hypertension (ICD-10) Surgical History H/O hernia repair ?Z98.890 - Other specified postprocedural states (ICD-10) ?Z87.19 - Personal history of other diseases of the digestive system (ICD-10) H/O detached retina repair ?Z98.890 - Other specified postprocedural states (ICD-10) ?Z86.69 - Personal history of other diseases of the nervous system and sense organs (ICD-10) Meds Home Medications and Allergies Home Medications ?Medication ?Instructions ?Recorded ?Confirmed ?Type atenolol 50 mg tablet 50 mg PO DAILY 12/09/23 12/26/23 History atorvastatin 10 mg tablet 10 mg PO DAILY 12/09/23 12/26/23 History buspirone 10 mg tablet 10 mg PO BID 12/09/23 12/26/23 History cyclobenzaprine 10 mg tablet 10 mg PO TID 12/09/23 12/26/23 History diclofenac sodium 75 mg 75 mg PO Q12H 12/09/23 12/26/23 History tablet,delayed release furosemide 20 mg tablet 20 mg PO DAILY 12/09/23 12/26/23 History loratadine 10 mg tablet 10 mg PO DAILY 12/09/23 12/26/23 History losartan 50 mg tablet 50 mg PO BID 12/09/23 12/26/23 History metformin 500 mg tablet 500 mg PO BID 12/09/23 12/26/23 History trazodone 150 mg tablet 150 mg PO BEDTIME 12/09/23 12/26/23 History Allergies Allergy/AdvReac Type Severity Reaction Status Date / Time Penicillins Allergy Severe Verified 12/26/23 10:24 Exam Constitutional Documenting provider has reviewed patient's vital signs: yes Common normals: no apparent distress, oriented x3 and alert HENMT Common normals: normocephalic, hearing grossly normal bilaterally and moist oral mucous membranes Head and scalp: normocephalic Eye Common normals: PERRL Pupil: PERRL Neck & C-Spine Common normals: full ROM General: normal visual inspection Chest Common normals: inspection of chest normal Respiratory Common normals: normal respiratory effort, no retractions and no use of accessory muscles Back & Pelvis Lumbar spine/lower back: normal to inspection, lumbar ROM normal and straight leg raise negative bilaterally Other: mild pain with internal and external log roll of right hip sensation intact BLE strength 5/5 in BLE Extremity Common normals: full ROM Other: edema noted to LLE, patient reports this is chronic Neuro Common normals: oriented x3, CN's II-XII intact bilaterally, moves all extremities, no focal motor deficits, no sensory deficits noted and deep tendon reflexes 2+ bilaterally Sensorium/orientation: alert Gait (neuro): assistive device used cane Motor exam: strength 5/5 throughout and no movement abnormalities noted Psych Common normals: mental status grossly normal, thought process normal, cooperative, affect normal, speech normal and activity/motor behavior normal Speech: normal speech Thought process: normal thought process Results Additional Findings Additional findings: If on a controlled substance or opioids, I have checked an [place] report on this patient and there are no aberrancies noted in the prescribing history.??If on a controlled substance or opioid a drug screen was completed and reviewed within the last year, and if there has not been a drug screen completed we ordered one today to monitor higher risk, state monitored pain medication use. As part of providing excellent, safe, comprehensive care, the following was completed at our patient's visit: 1. A medication reconciliation and review to ensure accurate knowledge of current/active medications, including asking our patients to inform us about any [id number] medications or herbal remedies/nutritional supplements/alternative remedies. 2. A review to specifically ensure our patients have had annual screening for screening for depression, screening for tobacco use, and screening for unhealthy alcohol use. For concerning screenings had a discussion with the patient, provided patient education, and recommended follow-up with primary care provider when appropriate. If patient noted with a risk of falling, they received education on strength, gait, and balance training to prevent future risk of falling. Assessment and Plan Assessment and Plan (1) Hip osteoarthritis: Qualifiers: Laterality: right Osteoarthritis type: primary Qualified Code(s): M16.11 - Unilateral primary osteoarthritis, right hip (2) Lumbago: Qualifiers: Chronicity: chronic Back pain laterality: right Sciatica presence: unspecified whether sciatica present Qualified Code(s): M54.50 - Low back pain, unspecified; G89.29 - Other chronic pain Plan continue current medications, tolerating well without side effects. MY stable at 20% f/u 6 months, sooner if needed
== END 2024-04-05 14:12 | disposition home or self-care (01) ==
LOC: PM 14:11
PROVIDERS: PCP Nurse Practitioner Family; Visit Provider Nurse Practitioner
DX: M16.11 Unilateral primary osteoarthritis, right hip (principal); M54.50 Low back pain, unspecified; G89.29 Other chronic pain
CPT/HCPCS: G0463

== ENCOUNTER 2024-05-18 14:55 | Outpatient (OUT) | payer MEDICARE, SELFPAY ==
--- OUTSIDE RECORDS SUMMARY | 2024-05-18 15:02 | XMS_ITS | CCD ---
Author Organization [facility] CliniSymo Care Team Providers Care Electric Organ Inspector And Repairer Name Role Phone Raul Sun MD Primary Care Provider [phone] DAINA JUDGE Primary Care Physician [phone] MD Jf Sanches Attending Provider [phone] AMMY Judge Primary Care Provider Daina Judge Primary Care Unavailable Jf Sanches Attending Unavailable Jf Sanches Admitting Unavailable SELENA ., DR RHOADES Admitting Unavailable SANCHES ., DR RHOADES Attending Unavailable DAINA JUDGE Primary Care Unavailable SANCHES ., DR RHOADES Consulting Unavailable DAINA JDUGE Admitting Unavailable DAINA JUDGE Attending Unavailable DAINA JUDGE Primary Care Unavailable DAINA JUDGE Consulting Unavailable ALFIE DAINA Admitting Unavailable DAINA JUDGE Attending Unavailable ALFIE, DAINA Primary Care Unavailable DAINA JUDGE Consulting Unavailable Jf SANCHES Attending Unavailable SELENA, Jf Reis Attending Unavailable DAINA JUDGE S Referring Unavailable Jf SANCHES Attending Unavailable Jf SANCHES Admitting Unavailable Raul Sun MD Primary Care Provider Daina Judge CNP Unavailable [phone] Raul Sun MD Primary Care Provider RAUL SUN Primary Care Unavailable KENYON ANGEL Attending Unavailable RAUL SUN Primary Care Unavailable MARQUIS WEAVER Attending Unavaila KRISSY Roberts Referring Unavailable KRISSY GRAY Attending Unavailable RAUL SUN Primary Care Unavailable RAUL SUN Primary Care Unavailable MARQUIS WEAVER Attending Unavaila RAUL Reeder Primary Care Unavailable ALE HICKMAN Attending Unavailable RAUL SUN Primary Care Unavailable ROSS, RAUL E Primary Care Unavailable ALE HICKMAN Attending Unavailable Reanna LEONG, Trevor Kruger Attending Unavailable Reanna LEONG, Trevor Kruger Attending Unavailable HILDA HA Attending Unavailable HILDA HA Attending Unavailable FABRIZIO MACIAS Attending Unavailable HILDA HA Attending Unavailable KAIA EGAN Attending Unavailable KADY CROW Attending Unavailable ROGERIO LANE Attending Unavailable Allergies Allergy Classification Reported Allergen(s) Allergy Type Date of Onset Reaction(s) Facility (13 sources) Penicillins; Translations: [PENICILLINS] Drug Allergy 7 Rash [facility] (5 sources) Penicillin; Translations: [penicillin] Drug Allergy 2 Unknown skin reaction [facility] (1 source) Penicillins Drug allergy (disorder) 2 [facility] (1 source) amLODIPine; Translations: [AMLODIPINE] Drug Allergy 4 [facility] Repository Medications Current Medications Medication Drug Class(es) Dates Sig (Normalized) Sig (Original) [id number] actuat albuterol 0.09 mg/actuat metered dose inhaler (6 sources) beta2-Adrenergic Agonist Start: 04-17-2023 albuterol HFA (PROVENTIL HFA, VENTOLIN HFA) 90 mcg/actuation inhaler amLODIPine 5 mg oral tablet (14 sources) Dihydropyridine Calcium Channel Rosie Start: 01-14-2021 take 1 tablet by mouth once daily amLODIPine (NORVASC) 5 mg tablet Take 5 mg by mouth once daily. 0 01/14/2021 Active Comment on above: Take 5 mg by mouth o nce daily. atenolol 50 mg oral tablet (14 sources) beta-Adrenergic Rosie Start: 11-02-2018 atenolol (TENORMIN) 50 mg tablet atorvastatin 10 mg oral tablet (14 sources) HMG-CoA Reductase Inhibitor Start: 02-01-2022 atorvastatin (LIPITOR) 10 mg tablet busPIRone hydrochloride 5 mg oral tablet (14 sources) Start: 11-02-2018 busPIRone (BUSPAR) 5 mg tablet cholecalciferol 0.05 mg oral capsule (11 sources) Vitamin D Cholecalciferol, Vitamin D3, 50 mcg (2,000 unit) cap Take by mouth. 0 Active Cholecalciferol, Vitamin D3, (VITAMIN D-3) 2,000 unit cap Take by mouth. 0 Active Comment on above: Take by mouth. diclofenac sodium 75 mg delayed release oral tablet (5 sources) Nonsteroidal Anti-inflammatory Drug Start: 024 take 1 tablet by mouth every twelve hours diclofenac, EC, (VOLTAREN) 75 mg EC tablet Take 1 tablet by mouth every 12 hours. 0 10/09/2023 Active Comment on above: Take 1 tablet by alejandra th every 12 hours. doxycycline hyclate 50 mg oral capsule (11 sources) Tetracycline-class Drug Start: take 1 capsule by mouth once daily doxycycline (VIBRAMYCIN) 50 mg capsule Take 50 mg by mouth once daily. 0 01/25/2022 Active Comment on above: Take 50 mg by mouth once daily. FLUoxetine 40 mg oral capsule (11 sources) Serotonin Reuptake Inhibitor take 1 capsule by mouth once daily FLUoxetine HCl (PROZAC) 40 mg capsule Take 40 mg by mouth once daily. 0 Active Comment on above: Take 40 mg by mouth once daily. furosemide 20 mg oral tablet (14 sources) Loop Diuretic Start: furosemide (LASIX) 20 mg tablet hydroCHLOROthiazide 12.5 mg / losartan potassium 50 mg oral tablet (14 sources) Thiazide Diuretic, Angiotensin 2 Receptor Rosie Start: hydrochlorothiazid e-losartan 12.5 mg-50 mg Tab Refill(s) 0 Start Date: 06/28/22 Status: Ordered Start: 11-02-2018 losartan-hydro chlorothiazide (HYZAAR) 50-12.5 mg per tablet loratadine 10 mg oral tablet (14 sources) Start: 06-28-2022 take 3 tablets by [...] Take 10 mg by mouth once daily. metFORMIN hydrochloride 500 mg oral tablet (14 sources) Biguanide Start: 11-03-19 19 metFORMIN (GLUCOPHAGE) 500 mg tablet Minocycline (11 sources) Tetracycline-class Drug MINOCYCLINE HCL (MINOCYCLINE ORAL) Take by mouth. 0 Active Comment on above: Take by mouth. naltrexone hydrochloride 50 mg oral tablet (11 sources) Opioid Antagonist Start: 11-03-19 naltrexone (TREXAN) 50 mg tablet potassium chloride 10 meq extended release oral capsule (5 sources) Start: 09-08-19 potassium chloride SR (MICRO-K) 10 mEq CR capsule Take 10 mEq by mouth two times a day. Take with food 0 09/08/2023 Active Comment on above: Take 10 mEq by mouth two times a day. Take with food spironolactone 25 mg oral tablet (5 sources) Aldosterone Antagonist Start: 09-21-19 take 1 tablet by mouth once daily in the morning spironolactone (ALDACTONE) 25 mg tablet Take 25 mg by mouth every morning. 0 09/21/2023 Active Comment on above: Take 25 mg by mouth every morning. traZODone hydrochloride 150 mg oral tablet (14 sources) Serotonin Reuptake Inhibitor Start: 06-28-20 traZODONE 150 mg Tab Refills(s) 0 Start Date: 06/28/22 Status: Ordered Comment on above: Take 150 mg by mouth daily at bedtime. Completed/Discontinued Medications Medication Drug Class(es) Dates Sig (Normalized) Sig (Original) benoxinate hydrochloride 4 mg/ml / fluorescein sodium 3 mg/ml ophthalmic solution (5 sources) Diagnostic Dye Start: 12-27-2023 End: 12-28-2023 fluorescein-benoxi irma 0.3-0.4 % 1 Drop (FLURESS) Start: 06-06-2023 End: 06-07-2023 fluorescein-benoxinate 0.25- 0.4 % 1 Drop (FLURESS) Start: 03-02-2023 End: 03-03-2023 fluorescein-benoxinate 0.25- 0.4 % 1 Drop (FLURESS) Start: 03-01-2022 End: 03-02-2022 fluorescein-benoxinate 0.25- 0.4 % 1 Drop (FLURESS) Start: 02-17-2022 End: 02-18-2022 fluorescein-benoxinate 0.25- 0.4 % 1 Drop (FLURESS) phenylephrine hydrochloride 25 mg/ml ophthalmic solution (4 sources) alpha-1 Adrenergic Agonist Start: 12-27-2023 End: 12-28-2023 PHENYLephrine 2.5 % 1 Drop (AK-DILATE, AINSLEY-SYNEPHRINE) Start: 06-06-2023 End: 06-07-2023 PHENYLephrine 2.5 % 1 Drop ( AK-DILATE, AINSLEY-SYNEPHRINE) Start: 03-02-2023 End: 03-03-2023 PHENYLephrine 2.5 % 1 Drop ( AK-DILATE, AINSLEY-SYNEPHRINE) Start: 03-01-2022 End: 03-02-2022 PHENYLephrine 2.5 % 1 Drop ( AK-DILATE, AINSLEY-SYNEPHRINE) tropicamide 10 mg/ml ophthalmic solution (5 sources) Anticholinergic Start: 12-27-2023 End: 12-28-2023 tropicamide 1 % 1 Drop (MYDRIACYL) Start: 06-06-2023 End: 06-07-2023 tropicamide 1 % 1 Drop (MYDR IACYL) Start: 03-02-2023 End: 03-03-2023 tropicamide 1 % 1 Drop (MYDR IACYL) Start: 03-01-2022 End: 03-02-2022 tropicamide 1 % 1 Drop (MYDR IACYL) Start: 02-17-2022 End: 02-18-2022 tropicamide 1 % 1 Drop (MYDR IACYL) Problems Active Problems Problem Classification Problem Date Documented Date Episodic/Chronic Anxiety disorders (3 sources) Anxiety disorder 08-08-2019 Chronic Cataract (20 sources) Nuclear senile cataract; Translations: [Age-related nuclear cataract, right eye] Onset: 11-10-2016 Chronic Cataract (1 source) Cataract Onset: 03-02-2023 Diabetes mellitus without complication (20 sources) Diabetes mellitus type 2 without retinopathy; [...] hyperplasia with lower urinary tract symptoms] Onset: 11-07-2022 Chronic Mood disorders (3 sources) Depressive disorder 08-08-2019 Chronic Other eye disorders (11 sources) Chorioretinal scar of left eye; Translations: [Unspecified chorioretinal scars, left eye] Onset: 11-10-2016 11-10-2016 Chronic Other eye disorders (2 sources) History of czwwckq-xfuztbbn-set net (YAG) laser capsulotomy of lens; Translations: [Cataract extraction status, left eye] 06-06-2023 Episodic Other nervous system disorders (16 sources) H/O: retinal detachment; Translations: [Personal history of other diseases of the nervous system and sense organs] Onset: 11-10-2016 Episodic Other screening for suspected conditions (not mental disorders or infectious disease) (14 sources) Raised prostate specific antigen; Translations: [Elevated prostate specific antigen [PSA]] Onset: 05-24-2022 Episodic Residual codes; unclassified (2 sources) Localized edema; Translations: [Localized edema] Onset: 02-09-2024 Episodic Retinal detachments; defects; vascular occlusion; and retinopathy (20 sources) Epiretinal membrane of left eye; Translations: [Puckering of macula, left eye] Onset: 11-10-2016 Chronic Substance-related disorders (2 sources) Nicotine dependence, unspecified, uncomplicated; Translations: [Nicotine dependence, unspecified, uncomplicated] Onset: 08-26-2023 Chronic Unclassified (1 source) OPENED IN ERROR 03-03-2023 Unclassified (1 source) APPOINTMENT CANCELLED 12-08-2023 Unclassified (1 source) Patient's noncompliance with other [...] that caused by tuberculosis or sexually transmitteddisease) (11 sources) Blepharitis of upper and lower eyelids of bilateral eyes; Translations: [Unspecified blepharitis right eye, upper and lower eyelids] Onset: 11-10-2016 11-10-2016 Episodic Other eye disorders (5 sources) Excess skin of eyelid; Translations: [Dermatochalasis of right upper eyelid] Onset: 11-10-2016 11-10-2016 Episodic Other eye disorders (7 sources) Dermatochalasis of right upper eyelid; Translations: [Dermatochalasis] Onset: 11-10-2016 11-10-2016 Episodic Other lower respiratory disease (2 sources) Other forms of dyspnea; Translations: [Other forms of dyspnea] Onset: 09-21-2023 Episodic Other nervous system disorders (1 source) Personal history of other diseases of the nervous system and sense organs; Translations: [History of retinal detachment] Onset: 11-10-2016 Episodic Unclassified (1 source) Patient's noncompliance with other medical treatment and regimen due to unspecified reason; Translations: [Patient's noncompliance with other medical treatment and regimen due to unspecified reason] Onset: 10-21-2023 Results Test Name Value Interpretation Reference Range Facility Office Visiton 02-09-2024 Follow-up visit [id number] Pan Martin 1950 M Date Provider Department Center 02/09/2024 HILDA OLIVO CARD [facility] Family History Problem Relation Age of Onset Coronary artery disease Father Stroke Father Family Status - Relation Status Age at Father Level of Service:11987 [place] OFFICE/OUTPATIENT ESTABLISHED LOW MDM 20 MIN Normal [facility] OCT MACULA CIRRUS OU (BOTH E YES)on 12-27-2023 [facility] Radiology Study observation (narrative) [facility] [address] 12-08-2023 [place] Telephone (ABDULKADIR) -- GIANFRANCO MARTIN ([id number]) 1950 M Date Time Provider Department 12/08/23 ALE HICKMAN During your visit today, we recorded the following information about you: Ale Hickman MD 12/13/2023 5:41 PM Signed Please call again and update me Please notify patient that his PSA is rising from 9 to 10.6 He needs prostate bx Can be done in office under local anesthesia or in ASC under MAC ( [place] sleep) 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 Also sent patient [facility] message in separate Telephone Encounter from 12/08/2023. Allergies As of Date: 12/08/2023 Noted Allergy Reaction PENICILLINS 11/03/2016 2 - Rash Date Reviewed: 10/24/2023 Reviewed by: Jeanette Cole MA - Fully Assessed Prescriptions as of 12/14/2023 - spironolactone (ALDACTONE) 25 mg tablet Take 25 mg by mouth every morning. - diclofenac, EC, (VOLTAREN) 75 mg EC tablet Take 1 tablet by mouth every 12 hours. - potassium chloride SR (MICRO-K) 10 mEq CR capsule Take 10 mEq by mouth two times a day. Take with food - albuterol HFA (PROVENTIL HFA, VENTOLIN HFA) 90 mcg/actuation inhaler - doxycycline (VIBRAMYCIN) 50 mg capsule Take 50 mg by mouth once daily. - atorvastatin (LIPITOR) 10 mg tablet - amLODIPine (NORVASC) 5 mg tablet Take 5 mg by mouth once daily. - naltrexone (TREXAN) 50 mg tablet - busPIRone (BUSPAR) 5 mg tablet - metFORMIN (GLUCOPHAGE) 500 mg tablet - furosemide (LASIX) 20 mg tablet - losartan-hydrochlorothiazi de (HYZAAR) 50-12.5 mg per tablet - atenolol (TENORMIN) 50 mg tablet - loratadine (CLARITIN) 10 mg tablet Take 10 mg by mouth once daily. - Cholecalciferol, Vitamin D3, 50 mcg (2,000 unit) cap Take by mouth. - FLUoxetine HCl (PROZAC) 40 mg capsule Take 40 mg by mouth once daily. - MINOCYCLINE HCL (MINOCYCLINE ORAL) Take by mouth. - traZODone (DESYREL) 150 mg tablet Take 150 mg by mouth daily at bedtime. Problem List As Of Date 12/08/2023 Noted Resolved Nuclear senile cataract of right eye [H25.11] 11/10/2016 Chorioretinal scar of left eye [H31.002] 11/10/2016 Blepharitis of upper and lower eyelids of both *11/10/2016 Dermatochalasis of both upper eyelids [H02.831,*11/10/2016 History of retinal detachment [Z86.69] 11/10/2016 Epiretinal membrane (ERM) of left eye [H35.372] 11/10/2016 Pseudophakia, left eye [Z96.1] 11/20/2018 Type 2 diabetes mellitus without retinopathy (H*02/11/2021 Retinal hemorrhage, left eye [H35.62] 06/27/2023 Encounter Status:Closed by ALE HICKMAN on 12/13/23 [facility] Telephone (UROLLN) -- GIANFRANCO MARTIN ([id number]) 1950 M Date Time Provider Department 12/08/23 ALE HICKMAN During your visit today, we recorded the following information about you: Ale Hickman MD 12/09/2023 7:57 AM Addendum Phone visit unsuccessful and had only VOICE MAIL X 2 I DID NOT LEAVE A MESSAGE Please notify patient that his PSA is rising from 9 to 10.6 He needs prostate bx Can be done in office under local anesthesia or in ASC under MAC ( [place] sleep) 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 Can you try reaching him again with this information? Thank you, Yue Haley, Hilda Mckeon, GORDY 12/14/2023 10:08 AM Signed Spoke with patient at this time; identified by name and . Discussed with patient below information from Dr. Hickman, as well as the process of the prostate biopsy. Advised patient that I will also sent message with detailed information about prostate biopsy. Patient advised that Dr. Hickman does recommend the biopsy; patient states that he will let us know how he would like to proceed. Allergies As of Date: 12/08/2023 Noted Allergy Reaction PENICILLINS 11/03/2016 2 - Rash Date Reviewed: 10/24/2023 Reviewed by: Jeanette Cole MA - Fully Assessed Reason for Visit: Patient Update [1234] Prescriptions as of 12/14/2023 - spironolactone (ALDACTONE) 25 mg tablet Take 25 mg by mouth every morning. - diclofenac, EC, (VOLTAREN) 75 mg EC tablet Take 1 tablet by mouth every 12 hours. - potassium chloride SR (MICRO-K) 10 mEq CR capsule Take 10 mEq by mouth two times a day. Take with food - albuterol HFA (PROVENTIL HFA, VENTOLIN HFA) 90 mcg/actuation inhaler - doxycycline (VIBRAMYCIN) 50 mg capsule Take 50 mg by mouth once daily. - atorvastatin (LIPITOR) 10 mg tablet - amLODIPine (NORVASC) 5 mg tablet Take 5 mg by mouth once daily. - naltrexone (TREXAN) 50 mg tablet - busPIRone (BUSPAR) 5 mg tablet - metFORMIN (GLUCOPHAGE) 500 mg tablet - furosemide (LASIX) 20 mg tablet - losartan-hydrochlorothiazi de (HYZAAR) 50-12.5 mg per tablet - atenolol (TENORMIN) 50 mg tablet - loratadine (CLARITIN) 10 mg tablet Take 10 mg by mouth once daily. - Cholecalciferol, Vitamin D3, 50 mcg (2,000 unit) cap Take by mouth. - FLUoxetine HCl (PROZAC) 40 mg capsule Take 40 mg by mouth once daily. - MINOCYCLINE HCL (MINOCYCLINE ORAL) Take by mouth. - traZODone (DESYREL) 150 mg tablet Take 150 mg by mouth daily at bedtime. Problem List As Of Date 12/08/2023 Noted Resolved Nuclear senile cataract of right eye [H25.11] 11/10/2016 Chorioretinal scar of left eye [H31.002] 11/10/2016 Blepharitis of upper and lower eyelids of both *11/10/2016 Dermatochalasis of both upper eyelids [H02.831,*11/10/2016 History of retinal detachment [Z86.69] 11/10/2016 Epiretinal membrane (ERM) of left eye [H35.372] 11/10/2016 Pseudophakia, left eye [Z96.1] 11/20/2018 Type 2 diabetes mellitus without retinopathy (H*02/11/2021 Retinal hemorrhage, left eye [H35.62] 06/27/2023 Encounter Status:Closed by ALE HICKMAN on 12/08/23 Normal [facility] PSA SerPl-mCncon 11-17-2023 Prostate specific Ag [Mass/Vol] 10.58 ng/mL High <2.60 [facility] Comment on above: Order Comment: Speci men Type: BLOOD SPECIMEN Ordering Facility: [facility] Address: [address] [place] [address] Result Comment: Tomas luong PSA test methodology used is the Electrochemiluminescence Immunoassay by [employer]. Total PSA values by differing methodologies cannot be interchanged. For an individual patient, the significance of a PSA level should be interpreted in a broad clinical context, including age, race, family history, digital rectal exam, prostate size, results of prior testing (prostate biopsy, free PSA, PCA3), and use of 5-alpha reductase inhibitors. Considering the high incidence of asymptomatic cancer in the general population that may not pose an ultimate risk to a patient, the decision to recommend urological evaluation or prostate biopsy should be individualized after consideration of all these factors. REFERENCE: Tien Camejo M.D., M.P.H., Germán Banuelos M.D., Ph.D., Eliazar Anna M.D., Ester Weber, M.P.H., Eliza Cohen, Krystian. Effect of Verification Bias on Screening for Prostate Cancer by Measurement of Prostatic Specific Antigen. N Engl J Med 2003,349:335-42. Performed By: #### 2 [id number] #### [facility] CLIA [id number] [address] [place] [address] [place] [address] [place] CNOVon 10-24-2023 CNOV Office Visit (UROLLN ) -- GIANFRANCO MARTIN ([id number]) 1950 M Date Time Provider Department 10/24/23 2:40 PM ALE HICKMAN During your visit today, we recorded the following information about you: Pulse Blood pressure Weight 79/minute 157/66 97.5 kg Raven Babcock 10/24/2023 3:09 PM Signed Gianfranco Jordan [facility] [id number] 72 year old male with nuclear sclerotic [...] 2007 Retinal detachment, left eye, repaired in [place], [place] PAST SURGICAL HISTORY OF hernia sx, [...] mg tablet furosemide (LASIX) 20 mg tablet losartan-hydrochlorothiazi de (HYZAAR) 50-12.5 mg per tablet atenolol (TENORMIN) [...] visit. ALLERGY: ALLERGIES Allergen Reactions Penicillins Rash ====== REVIEW OF SYSTEMS ====== GENERAL: No fever, no fatigue and no [...] hematomas or no bleeding from the gums. ===== PHYSICAL EXAM: ===== GENERAL: Alert, oriented and in no distress. +unsteady gait ABDOMEN: Soft, non tender with no masses or organomegaly. No CVA tenderness. HERNIA: Negative EXTREMITIES: No leg edema, No joint swelling GENITALIA: URO REC EX Prostate: size (30 grams), symmetrical, nontender, w/o nodules. Good anal sphincter tone. [facility] SYMPTOMS SCORE. Date 10/24/2023 1. [...] Moderate By (more content not included)... Normal [facility] 37on 10-21-2023 37 Resume taking norvasc/Amlodipine 5 mg daily for blood pressure Normal [facility] Office Visiton 10-21-2023 Follow-up visit [id number] Pan Martin 1950 M Date Provider Department Center 10/21/2023 120-HILDA HA CARD [facility] Family History Problem Relation Age of Onset Coronary artery disease Father Stroke Father Family Status - Relation Status Age at Father Level of Service:68325 [place] OFFICE/OUTPATIENT ESTABLISHED MOD MDM 30 MIN Normal [facility] 36on 10-06-2023 36 JEANIE Bean MA Labs look good- no concerns= kidney function normal and electrolytes normal Regarding labs done on 10/04/2023 Patient made aware. Normal [facility] 37on 09-21-2023 37 Stop amlodipine- and start spironlactone- 1 tab daily. Have blood work drawn about 1 week after starting this new med to check kidney function and electrolytes. Call office for any concerns Normal [facility] Office Visiton 09-21-2023 Follow-up visit [id number] VeronicaPan gunderson 1950 M Date Provider Department Center 09/21/2023 120-HILDA HA JARAD [facility] Family History Problem Relation Age of Onset Coronary artery disease Father Stroke Father Family Status - Relation Status Age at Father Level of Service:62965 [place] OFFICE/OUTPATIENT ESTABLISHED MOD MDM 30 MIN Normal [facility] Office Visiton 08-26-2023 Follow-up visit [id number] LilyannaPan gunderson 1950 M Date Provider Department Center 08/26/2023 3848-FABRIZIO MACIAS [facility] Family History Problem Relation Age of Onset Coronary artery disease Father Stroke Father Family Status - Relation Status Age at Father Level of Service:08394 [place] OFFICE/OUTPATIENT NEW LOW MDM 30 MINUTES Normal [facility] Patient Letter FTMCon 2022 Patient Letter [facility] (Inserted Image. Prema ble to display) November 30, 20[place] [address] GIANFRANCO MARTIN 1950 Dear Gianfranco Martin, Executive [...] Jf Sanches M.D., F.A.C.S. [facility] [address] [place], [place] [address], [place] [address] , OPTION #3 SENT REGULAR/CERTIFIED MAIL Normal [facility] Coding Summary.on 10-27-2022 Coding Summary. CD:[id number] Gh0bWw +PGhlYWQ+SR5XITFgS86idPGny O6sI9XNFDxFAtclPNHDYZkYQcD kepAmOZ1flNZuFLHi IC8+YA0sEXHiJbvuaIWnw4Q1jC A6Y09dxm1hAUcefOZ7DEKpAeZi tmwhq5gvpKz4JWeuSrnkHcBl QKVuxR71CYQ3dC10Io75wBMorY Svo9fkfBs8KgJhLNIcRJH8vLte QEwlz8ImNRLtZ11ahTFjy9Z4 NHOorMnqjMOqRcBxdAZ5rZ2lJT seajddw3cjmzffUpb2jl01uLXe v4S3iNZ8G2WhriS3ULFrpPJo QbtvxHFWuZ9ecdsrz9bxqdffMh NqFYGpUUf6GHn8SWHbtKniMuGe GS15VNO5WKUdejDhN3XbRHRq hOsnMdX2i6G7Yu4OV7VSTtnmS4 VNTUFSWTwvdGQ+AV23jg54O1Xz WhmxYev8MMUbOMR9kAA4sT1n LDAdODhot9U8dEI6T9AtiaVjyc 2gg4cdVKCfQSptT41mfWXuh2T3 IHCmgUE5XHMpxEzrSrGbcA22 Oyc+NCMnqZafo8DlKynlh0dub6 nhlLo8XudkTEIkteAtgYsiYEO2 b0KjNq6zGDGwbZX7dZZ0gB1y WzIhDhC6EQzzK336CvBreDTxAj akQ88hH0SgnSR+OXTyXic9JHNl jUakSA8nM1QhSRJbgmlklELk jSkhNZ3mWGMdkwbnHSFqcF9nNJ SwI3a8OpHpJoD8PTftB5JnSRZf casbMq00dR4jKoFeTaV8SCnl R1YmihE7YGEfjRZjHTfjTYP6W4 5vq7Z2RXJwQSXyDET0bXS0aW2d bGlnbjogbGVmdDsgdmVydGlj PCloAWjtC890WWUsiAshHnXxJW luZyBEYXRlOiAgMDMvMDgvMjAy MzwvdGQ+UIMiGOZ0rSvdAHPk zNBaLEaxUk6wbDlymLasHB7pZQ DgadqkZJIjqS0dYXTavWBseYxk HE5fCNXyhmmed188SbGjMYB6 MSEmsLFpV6IifF8hGbMjBMKdXX RzS5UxnLRaSLbmZ621WOllYnK7 ONCwlfQdC8UnIAAugHvnKaA6 j0K5Xk5Rg5PamxanE1IlzSOoSc FfFmoxJCm8M2TaNyhaqYM+PC90 OTBvNS84CTn5AWL0yOttCXwg UIWkY3JgeW8vTfAfCCFfFSNyZc c+PHRhYmxlIHdpZHRoPScxMDAl HjLcxRkoOS8aPc3hTFJvHWFl yVaxcRWsYjAul1zwMAXvWLlrGT 5gbSlbP0EsmNX8QWDgw9l5Cm40 M34fT7WqjWK+FPYcnCY0lOB1 mK7qQeBoGwR1HEdkK157WrOexJ VePejtm9biw4vhqEv4GdM5KYQw qmIjnJrwAOZ2f4TfHn25Y12a IHdpZHRoPSIxNSUiIHZhbGlnbj 3fxY0gXh1+TZThgAO0uNJ2cU2k HlTtXjW0PJrgB594JjWdqVZx Jnjwo6yku6xigVl4HmRoFFKmix AcyQdyMKY2p9CeMx79C4JqyJzu a5NqTgw5mf27fMSjj1Z4cIW3 T3LfOMDtfqlgsPLosTbwUE4iPW AubinnUJRboB0yPBSkE8a7QhYe MoN7VCfwJ2RhexI0UOWzlYHq AFMaiSEXvL0ikqgyl1shpzerIn OgQFWqJHt9NSa0BTCxpDrxHvSq WYQ5KhO5FEE8xWKnxS9rfJrq luhvwD7xHwm+QFN4mCGabGLCJW 1lOjwvdGQ+XOAlRHX9dMbiLVob NNKpzE3kNBFhJ0k5FlYeCbW2 EYjfO7AogfE1NCCfkZXbTLQqfX UDxB5geblpj0psgljaAiKfHYPt GYv1UYz2TOQgrUiaTxJtQSD2 XmW2SMA8tKAiaK8xhStvnrebkT 9wOyc+RlnjhPcpLUO4FWk1R9Vw Uwz5ALKwxVouMQ5igSKbLNfx Qh9pdZiznBlsEB2gHOQwtiwfz5 54NpTen2jhSWEwhPXuIGucYQE8 Q99nj6D7OKAqHNSeQEG3kFZ2 wY6rqUlsipbclSNsbHwxspYtcN kuMOwdIFhyD732DGOuzKhlBrJt DRx7V9KcEyr5GNKdqMngRX8f hJLpPVdtLr0vaAgxhBmsSL8pWG Omejxij454SnZnh4ecJYBuvNHm MUmcOIP4M62mr1I0TQZcGRPu JUV0wYT5zV3ukEupptebaAGrbL yzrpOrlCreLOlyVZnpP328UCOk dPfkTyIwxXn9K1EvFmb6NTIp kCefEQ0fmBLjPXhsNw0nhYgqkR tbQW6dTHHgktvgo866LsOij0mp OYNopINdUJjaUWM9R68yq1C3 CZBkGBPfVYR2yIC2sM1wyDypkc ogbGVmdDsgdmVydGljYWwtYWxp M298FTWecMazDoIdnQtrthSd FXsqXOm9X9FtTuesrQQ+PC90YW BmJA85hQDlaSWkm4xzlVf7IkAh HQLqMNN9nAkjGZpev2QsXIBr H34odHGxj1K7ROEjdKqfvCExCn WxhKL1jD4aRGmszhqhv9thlhtv Ltwey9kxgx79vN25I46dILfo ZTJuUCZlBAQfIMCytAdcaw2vrO 9wIi8+KEKkkYR4cFA3mI3oYFCb RyJ5XHqxI700WkRzdQVfNjez l7qba5zscMn3BoB3QGSdgrSvhW oeDHG8i8QbWi36G70vVNblKBVn CXPuFMKgDCBrcYwluv9gtM7w Ii8+PEBvzJP5pNK1gA2oViMpBg N5RYvbD291YcVpbVOgVfgsE39b I1FjbCW+JVIvUsd2TTYfmPnr RH3ibSUaFTvpPd6zZGR0HmZcPk YtAJgaG9KwMERldkflfhqtxFD7 ITChHOUobP75Gu8lbTypTLRp tDWFlP4bsridg1xpqfkeGgRxBL LmXCw8BKs2VHTdmEtbWgMcNRN8 VoW0LLC9aCVhfU3wmLloopyq aR8zU4JdCWBcvepeOb55fH9xSf TcTyY3LDigQah+UFVMTEFOTywg KoqNG5fPXbyovBN+PHRkIHN0 iFyoTWpiPHAflD1oEOKuB6r3Kb FsUzH8PWqqK6OoEUMqeeniYq68 qR9aSoRmIvZ9ZTboT8BwptY7 ZKJrzDGbWOqmSJT7K43iv4A7TM TxRDGzBNO2jVM5dJ3jlFswcpvp bGVmdDsgdmVydGljYWwtYWxp F911LLPhoAmoCnB1LsN4LjW0XF F7S2TsZmx8AVBttHetGR5irERp TBowZq9suMrhbKskMP0jFWKa uxoxVJMirE7zLCEroUSggYbcJX 0aMHSsokwhz062YnEzXGR1HXLe rKYfC5UozR3jJpSuDLEpPVSm O8OwsBTiBAtcC457HAzbKuP5CT XqpuVnE1QgQQEuoTsbAzS8x4N7 Im10YgHYPZAgqovpbBX+PHRk ZLN6qYtiATjcMJGvvO9lQYOsK1 y8VoNfMtU7EHkaC8XiVKXtsuda Zk49pP3aEdWbGwG3IVcpU1Fg bdL2FGBmuCRdZZwxAYM3S59od8 H4SGPbLJEbODB5pNJ1lA0beCnk bjogbGVmdDsgdmVydGljYWwt WVhiP153CYKywTcjCi5huDU0N9 OrQhw8EJSbkStbZM8rpTUiJJjk Dr3yhXkjnMbyKT6hHLKkkzbu WUWybX9yBZZlvUZzhTlhBY1vFF Murorib680UoQxGYP7MCJyaTWs N9GazZ0mReJsGTXeAJUrG5Dk gWVvJZooF167UZeyGrS4JBByfm EzY5PdOESzbDddLfU0s9U2Ue4Y ICUvPSRrdMBpTsT7I6NmHsna dHI+YS52LXCzKU44gMYdyXRnu8 uasWh8HiNbQVYeNXL0qYtzZCaa i5ApHENoV20vuGSwg1X2JHCv xVsjzQUzRpMvxVL1aP6yZSbcnu oij0dyqaktLnkwx2vrtf19zT91 Q83bABkbHPUwEAHoUGDjWPIr dAxkqp9dbI5kHq3+TQEtkKX3yP J2wI5jSrJiYsH2PJhlW477AhNq nLCiRtato5ies6xsmYs3CaKy FNVyiaIxqVbnWAL3v8LoYf88L1 9sIHdpZHRoPSIyMCUiIHZhbGln jt7byP8kFv0+RC6ic3szis34 cU22lVW+PXAuTGP9dVytLLnzVT CufK9mQTaiXiK4IEDtSpQouD66 yECrIJseCw7arBwrvLfoLO0s RQVwrjiyo143StVrn9uyERDjmO UwHKwhNBN4M59la2T4BMNlEROf BXG9jUO3fG1dkQotllrddEKr tNhxvySwwMbqVIpcGSfkH405MF VocRclAxEdsOTuJ0ctepVNIY0w OjwvdGQ+DTHvIUY8jLeaUMla VXOxcC0fBHMiV2m6XyPdImK8BJ fxV3HesfA2SCYtkGFpWFEtiGMX eC9hkuzbo4mzeukhHoQeNJRo ZEn5WLz2UJYsiUyvGoNnBPP7Fo B1NTX2bKJzzE4asXafgjnjgU2k Oyc+RklOOjwvdGQ+PHRkIHN0 rHwgXQwlVFPbmP2cNKQmT6t5Bf IjBnV1QSwgU3BdgmN9UUJylCVg OEGjtJAGuP8ubqjie6zdeyld LmYrYONpSKl2IPs0TUOgzAtbCn XwVCK4TsX8OVM5iNEakC1xxVdb jmmaeS7bQot+TVJOOjwvdGQ+ SDRuHUT1kGprWWtzFGZqqT3hJC BmU8s2SkSlHwR6QNgzO6TfymB3 VUYiyNEyGEIrjMTAdX8rmwtg c2jzqkvwXmAjBCPzOCd6HQo2DO QlpWgiQfXxVGE9KrA9DUX6dBXg aJ4ifTijhawevG8xCyn+UGF5 ARP8TJ08EX81E9ErJvarxEBofC U+PHRhYmxlIHdpZHRoPScxMDAl GqHvbXdnZB6aQi0cXWQdLVLp bGxh (more content not included)... Normal [facility] Lab Reportson 10-27-2022 Lab Reports [id number]#1.00CD:127 Normal [facility] Ambulatory Visit Summaryon 0 10-15-2022 Ambulatory Visit Summary GIANFRANCO MARTIN :1950 Visit Date:10/15/2022 Ambulatory Visit Instructions Your Diagnosis Elevated PSA Benign prostatic hyperplasia (BPH) with post-void dribbling Tests Performed Urnls Dip Stick Auto w/o Microscopy POC 21730 Your Care Team Attending Physician - SELENA LEONG, Jf Reis Primary Care Physician - DAINA JUDGE CNP This Is Your Medications List Contact prescribing physician if questions or concerns amlodipine (amLODIPine 5 mg Tab) atenolol (atenolol 50 mg Tab) atorvastatin (atorvastatin 10 mg Tab) busPIRone (busPIRone 5 mg Tab) furosemide (furosemide 20 mg Tab) hydrochlorothiazide-losart an (hydrochlorothiazide-losar delaney 12.5 mg-50 mg Tab) loratadine (loratadine 10 [...] with SELENA LEONG, STEFANI Seo When: Where: [address] [place] [address]- Medications What When Instructions Unchanged amlodipine (amLODIPine [...] prescribing physician if questions or concerns Unchanged hydrochlorothiazide-losart an (hydrochlorothiazide-losar delaney 12.5 mg-50 mg Tab) Contact prescribing physician [...] Urnls Dip Stick Auto w/o Microscopy POC 72787 (10/15/2022) Bilirubin Urine Dipstick - Negative Blood Urine Dipstick - Negative Glucose Urine Dipstick - Negative Ketones Urine Dipstick - Negative Leukocytes Urine Dipstick - Negative Nitrite Urine Dipstick - Negative Protein Urine Dipstick - Negative Specific [place] Urine Dipstick - 1.010 Urine Appearance Urine [...] of these risk factors: ? Being of -Iranian descent. ? Having a family history of prostate cancer. ? If you are age 55?69, talk with your health care provider about (more content not included)... Normal [facility] Patient Educationon 10-15-19 Patient Education Oncology [...] of these risk factors: ? Being of -Iranian descent. ? Having a family history of [...] Are older than age 55. ? Are -Iranian. ? Have a father, brother, or uncle [...] R (more content not included)... Normal [facility] Urology Office/Clinic Noteon 10-15-2022 Urology Office/Clinic [...] Contact Information SELENA LEONG, Jf Reis, [address] [place] [address]- Additional Instructions: PSA today - await results Patient Education Prostate Cancer Screening I, Dori Wynne, personally scribed for Dr. Sanches on 10/15/2022 11:17:13. . Documentation recorded by the ayde, Dori Wynne, accurately reflects the services(s) I [...] 5 mg Tab furosemide 20 mg Tab hydrochlorothiazide-losart an 12.5 mg-50 mg Tab loratadine 10 mg Tab metformin 500 mg oral tablet traZODONE 150 mg Tab Allergies penicillin (Unknown skin reaction) Social History Alcohol - High Risk, 08/08/2019 Tobacco 10 or more cigarettes (1/2 pack or more)/day in last 30 days Tobacco Use:. Cigarettes, Yes, 10/15/2022 Family History Hypertension: Mother and Father. Immunizations Vaccine Date Status Comments SARSCoV2 mRNA(wjqihokdr-ivak-ttbjju ) vac 03/12/2022 Recorded 2022-06-28: TPV70 SARS-CoV-2 (COVID-19) mRNA BNT-162b2 vax 11/14/2020 Recorded 2022-06-28: TPV70 SARS-CoV-2 (COVID-19) mRNA BNT-162b2 vax 10/24/2020 Recorded 2022-06-28: TPV70 Lab Results Ambulatory Point of Care Results Bilirubin Urine Dipstick: Negative (10/15/22 10:39:00) Blood Urine Dipstick: Negative (10/15/22 10:39:00) Glucose Urine Dipstick: Negative (10/15/22 10:39:00) Ketones Urine Dipstick: Negative (10/15/22 10:39:00) Leukocytes Urine Dipstick: Negativ (more content not included)... [facility] Comment on above: Result Comment: Elec tronically Signed By: Jf SANCHES MD\.br\Date and Time Signed: 10/15/22 11:23 EST\.br\Electronically Co-Signed By: Dori Wynne\.br\Date and Time Co-Signed: 10/15/22 11:19 EST\.br\Electronically Co-Signed By: Dori Wynne\.br\Date and Time Co-Signed: 10/15/22 11:21 EST Creatinine (Bld) [Mass/Vol]O rdered By: Jf Sanches on 07-14-2022 Creatinine [Mass/Vol] 0.8 mg/dL 0.6-1.3 [facility] Comment on above: ER/ESD physician is notified/shown all ISTAT results.Critical values may be confirmed by laboratory testing ifdeemed necessary by ER attending doctor. ISTAT XRay CREon 07-14-2022 Creatinine [Mass/Vol] 0.8 mg/dL Normal 0.6-1.3 [facility] Comment on above: Result Comment: ER/E SD physician is notified/shown all ISTAT results. Critical values may be confirmed by laboratory testing if deemed necessary by ER attending doctor. Performed By: #### I SCRE #### [facility] [address] [place] [address] Point of Care testing , ISTAT GFR ( > 60 Normal [facility] Comment on above: Result Comment: GFR estimated reference range: According to KDOQI guidelines, <60 ml/min/1.73m2 is sufficient to diagnose a patient with chronic kidney disease. PERFORMED BY: [place] [address] PATHOLOGIST GARBAGE WORKER MADELYN LAIRD M.D. Performed By: #### I SCRE #### [facility] [address] [place] [address] Point of Care testing , ISTAT GFR (Non- Am > 60 Normal [facility] Comment on above: Performed By: #### I SCRE #### [address] Point of Care testing , No Panel InformationOrdered By: Jf Sanches on 07-14-2022 POC Estimated GFR > 60 [facility] Comment on above: GFR estimated refere nce range: According to KDOQI guidelines, <60 ml/min/1.73m2 is sufficient to diagnose a patient with chronic kidney disease. POC Estimated GFR Non- Amer > 60 [facility] Pre-Certification Formon Pre-Certification Form [id number]#1.00CD:127 [facility] Lab Reportson 07-05-2022 Lab Reports [id number]#[id number]:127 [facility] Physician Referralon 022 Physician Referral [id number]#[id number]:127 [facility] Ambulatory Visit Summaryon 1 08-28-2021 Ambulatory [...] mg Tab) furosemide (furosemide 20 mg Tab) hydrochlorothiazide-losart an (hydrochlorothiazide-losar delaney 12.5 mg-50 mg Tab) loratadine (loratadine 10 [...] Where: [facility] [address], [place] [address]- [phone] Medications What When Instructions Unchanged amlodipine (amLODIPine [...] prescribing physician if questions or concerns Unchanged hydrochlorothiazide-losart an (hydrochlorothiazide-losar delaney 12.5 mg-50 mg Tab) Contact prescribing physician [...] prostate gland (more content not included)... Normal [facility] Historical Records Officeon 06-28-2022 Historical Records Office [id number]#[id number]:127 [facility] Patient Educationon 06-28-20 22 Patient Education Urology Benign Prostatic Hyperplasia Benign [...] Follow these instructions at home: ? Take nmuc-cii-vsowqsd and prescription medicines only as told by [...] You d (more content not included)... Normal [facility] PSA, FREE AND TOTAL RATIOon 05-21-2022 % Free PSA 7.1 % Normal [facility] Comment on above: Result Comment: The table [...] men. Performed By: #### P SAFREE #### [facility] [address] [place] [address] Dr. Zaira Benoit Prostate specific Ag [Mass/Vol] 6.8 ng/mL Critically high 0.0-4.0 [facility] Comment on above: Result Comment: Bryant PERRYIA methodology. . According to the [employer], Serum PSA should decrease and [...] disease. Performed By: #### P SAFREE #### [facility] [address] [place] [address] Dr. Zaira Benoit PSA, Free 0.48 ng/mL Normal N/A [facility] Comment on above: Result Comment: Bryant woodruff ECLJUANY methodology. Performed By: #### P SAFREE #### [facility] [address] [place] [address] Dr. Zaira Benoit INSULINon 05-13-2022 Insulin 7.8 uIU/mL Normal 2.6-24.9 [facility] Comment on above: Performed By: #### I NSULIN #### [facility] [address] [place] [address] Dr. Zaira Benoit CBC AUTO DIFFon 05-12-2022 BASO # 0.1 103/ul Normal 0.0-0.1 [facility] Comment on above: Performed By: #### C BC #### [facility] [address] [place] [address] Dr. Zaira Benoit Basophils/100 WBC (Bld) 0.9 % Normal 0.2-2.0 [facility] Comment on above: Performed By: #### C BC #### [facility] [address] [place] [address] Dr. Zaira Benoit EO # 0.2 103/ul Normal 0.0-0.7 [facility] Comment on above: Performed By: #### C BC #### [facility] [address] [place] [address] Dr. Zaira Benoit Eosinophils/100 WBC (Bld) 2.1 % Normal 0.9-7.0 [facility] Comment on above: Performed By: #### C BC #### [facility] [address] [place] [address] Dr. aZira Benoit Erythrocyte distribution width (RBC) [Ratio] 13.2 % Normal 11.0-15.0 [facility] Comment on above: Performed By: #### C BC #### [facility] [address] [place] [address] Dr. Zaira Benoit Hematocrit (Bld) [Volume fraction] 46.6 % Normal 42.0-54.0 [facility] Comment on above: Performed By: #### C BC #### [facility] [address] [place] [address] Dr. Zaira Benoit Hemoglobin (Bld) [Mass/Vol] 15.5 g/dL Normal 14.0-18.0 [facility] Comment on above: Performed By: #### C BC #### [facility] [address] [place] [address] Dr. Zaira Benoit IG # 0.02 10e3/ul Normal 0.00-0.03 [facility] Comment on above: Performed By: #### C BC #### [facility] [address] [place] [address] Dr. Zaira Benoit IG % 0.3 % Normal 0.0-0.[address] [facility] Comment on above: Performed By: #### C BC #### [facility] [address] [place] [address] Dr. Zaira Benoit LYMPH # 2.6 103/ul Normal 1.2-3.[address] [facility] Comment on above: Performed By: #### C BC #### [facility] [address] [place] [address] Dr. Zaira Benoit Lymphocytes/100 WBC (Bld) 36.9 % Normal 20.5-60.0 [facility] Comment on above: Performed By: #### C BC #### [facility] [address] [place] [address] Dr. Zaira Benoit MANUAL DIFF REQ NO Normal [facility] Comment on above: Performed By: #### C BC #### [facility] [address] [place] [address] Dr. Zaira Benoit MCH (RBC) [Entitic mass] 33.2 pg Normal 25.9-34.0 [facility] Comment on above: Performed By: #### C BC #### [facility] [address] [place] [address] Dr. Zaira Benoit MCHC (RBC) [Mass/Vol] 33.3 g/dL Normal 29.9-35.2 [facility] Comment on above: Performed By: #### C BC #### [facility] [address] [place] [address] Dr. Zaira Benoit MCV (RBC) [Entitic vol] 99.8 fL Critically high 80.0-94.0 [facility] Comment on above: Performed By: #### C BC #### [facility] [address] [place] [address] Dr. Zaira Benoit MONO # 0.6 103/ul Normal 0.3-0.8 [facility] Comment on above: Performed By: #### C BC #### [facility] [address] [place] [address] Dr. Zaira Benoit Monocytes/100 WBC (Bld) 9.1 % Normal 1.7-12.0 [facility] Comment on above: Performed By: #### C BC #### [facility] [address] [place] [address] Dr. Zaira Benoit NEUT # 3.6 103/ul Normal 1.4-6.[address] [facility] Comment on above: Performed By: #### C BC #### [facility] [address] [place] [address] Dr. Zaira Benoit Neutrophils/100 WBC (Bld) 50.7 % Normal 43.0-75.0 [facility] Comment on above: Performed By: #### C BC #### [facility] [address] [address] [address] Zaira Benoit Platelet mean volume (Bld) [Entitic vol] 9.3 fL Critically low 9.5-13.5 [facility] Comment on above: Performed By: #### C BC #### [facility] [address] [address] [address] Zaira Benoit PLT 191 103/ul Normal 150-450 [facility] Comment on above: Performed By: #### C BC #### [facility] [address] [address] [address] Zaira Benoit RBC 4.67 106/ul Critically low 4.70-6.10 [facility] Comment on above: Performed By: #### C BC #### [facility] [address] [place] [address] Dr. Zaira Benoit WBC 7.0 103/ul Normal 4.0-11.0 [facility] Comment on above: Performed By: #### C BC #### [facility] [address] [place] [address] Dr. Zaira Benoit GLYCOHEMOGLOBIN A1Con 2021 ADA RECOMMENDATION SEE BELOW Normal [facility] Comment on above: Result Comment: ADA RECOMMENDED LIMIT 4.0 - 6.0 ADA THERAPEUTIC TARGET < 7.0 ACTION SUGGESTED > 7.0 Performed By: #### A 1C #### [facility] [address] [address] [address] Zaira Benoit Glucose [Mass/Vol] 151 mg/dL Normal [facility] Comment on above: Performed By: #### A 1C #### [facility] [address] [address] [address] Zaira Benoit HbA1c (Bld) [Mass fraction] 6.9 % Critically high 4.5-6.2 [facility] Comment on above: Performed By: #### A 1C #### [facility] [address] [place] [address] Dr. Zaira Benoit LIPID PROFILEon 05-12-2022 CHOL-HDL RATIO NORM SEE BELOW Normal [facility] Comment on above: Result Comment: 3.3 - 4.4 LOW RISK 4.4 - 7.1 AVERAGE RISK 7.1 - 11.0 MODERATE RISK >11.0 HIGH RISK Performed By: #### L IPID, URIC, CMP #### [facility] [address] [address] [address] Zaira Benoit Cholesterol [Mass/Vol] 132 mg/dL Normal <=[address] [facility] Comment on above: Performed By: #### L IPID, URIC, CMP #### [facility] [address] [address] [address] Zaira Benoit Cholesterol in HDL [Mass/Vol] 53 mg/dL Normal 40-60 [facility] Comment on above: Performed By: #### L IPID, URIC, CMP #### [facility] [address] [address] [address] Zaira Benoit Cholesterol in LDL [Mass/Vol] 59.6 mg/dL Normal [facility] Comment on above: Performed By: #### L IPID, URIC, CMP #### [facility] [address] [place] [address] Dr. Zaira Benoit Cholesterol.total/Ch olesterol in HDL [Mass ratio] 2.5 {ratio} Normal [facility] Comment on above: Performed By: #### L IPID, URIC, CMP #### [facility] [address] [place] [address] Dr. Zaira Benoit HDL NORMAL > or = 60 mg/dl - LO W CARDIOVASCULAR RISK <40 mg/dl - HIGH CARDIOVASCULAR RISK Normal [facility] Comment on above: Performed By: #### L IPID, URIC, CMP #### [facility] [address] [address] [address] Zaira Benoit LDL CALC NORMAL SEE BELOW Normal [facility] Comment on above: Result Comment: <100 mg/dl OPTIMAL 100 - 129 mg/dl NEAR OR ABOVE OPTIMAL 130 - 159 mg/dl BORDERLINE HIGH 160 - 189 mg/dl HIGH >190 mg/dl VERY HIGH Performed By: #### L IPID, URIC, CMP #### [facility] [address] [address] [address] Zaira Benoit Triglyceride [Mass/Vol] 97 mg/dL Normal <=150 [facility] Comment on above: Performed By: #### L IPID, URIC, CMP #### [facility] [address] [place] [address] Dr. Zaira Benoit VLDL CALC 19.4 mg/dL Normal [facility] Comment on above: Performed By: #### L IPID, URIC, CMP #### [facility] [address] [place] [address] Dr. Zaira Benoit PROF 14(COMP METB)on 022 Albumin [Mass/Vol] 3.9 g/dL Normal 3.4-5.0 [facility] Comment on above: Performed By: #### L IPID, URIC, CMP #### [facility] [address] [place] [address] Dr. Zaira Benoit Albumin/Globulin [Mass ratio] 1.1 {ratio} Normal [facility] Comment on above: Performed By: #### L IPID, URIC, CMP #### [facility] [address] [place] [address] Dr. Zaira Benoit ALP [Catalytic activity/Vol] 92 U/L Normal 46-116 [facility] Comment on above: Performed By: #### L IPID, URIC, CMP #### [facility] [address] [place] [address] Dr. Zaira Benoit ALT [Catalytic activity/Vol] 31 U/L Normal 16-63 [facility] Comment on above: Performed By: #### L IPID, URIC, CMP #### [facility] [address] [place] [address] Dr. Zaira Benoit Anion gap [Moles/Vol] 12.2 mmol/L Normal [facility] Comment on above: Performed By: #### L IPID, URIC, CMP #### [facility] [address] [place] [address] Dr. Zaira Benoit AST [Catalytic activity/Vol] 20 U/L Normal 15-37 [facility] Comment on above: Performed By: #### L IPID, URIC, CMP #### [facility] [address] [place] [address] Dr. Zaira Benoit Bilirubin [Mass/Vol] 0.4 mg/dL Normal 0.2-1.0 [facility] Comment on above: Performed By: #### L IPID, URIC, CMP #### [facility] [address] [place] [address] Dr. Zaira Benoit Calcium [Mass/Vol] 8.8 mg/dL Normal 8.5-10.1 [facility] Comment on above: Performed By: #### L IPID, URIC, CMP #### [facility] [address] [address] [address] Zaira Benoit Chloride [Moles/Vol] 101 mmol/L Normal 98-107 [facility] Comment on above: Performed By: #### L IPID, URIC, CMP #### [facility] [address] [place] [address] Dr. Zaira Benoit CO2 [Moles/Vol] 29.3 mmol/L Normal 21.0-32.0 [facility] Comment on above: Performed By: #### L IPID, URIC, CMP #### [facility] [address] [place] [address] Dr. Zaira Benoit Creatinine [Mass/Vol] 0.88 mg/dL Normal 0.70-1.30 [facility] Comment on above: Performed By: #### L IPID, URIC, CMP #### [facility] [address] [address] [address] Zaira Benoit EGFR-AF MONEGASQUE >60 Normal >=60 [facility] Comment on above: Performed By: #### L IPID, URIC, CMP #### [facility] [address] [place] [address] Dr. Zaira Benoit EGFR-NON AF MONEGASQUE >60 Normal >=60 [facility] Comment on above: Performed By: #### L IPID, URIC, CMP #### [facility] [address] [address] [address] Zaira Benoit Globulin (S) [Mass/Vol] 3.6 g/dL Normal [facility] Comment on above: Performed By: #### L IPID, URIC, CMP #### [facility] [address] [address] [address] Zaira Benoit Glucose [Mass/Vol] 128 mg/dL Critically high 74-106 [facility] Comment on above: Performed By: #### L IPID, URIC, CMP #### [facility] [address] [place] [address] Dr. Zaira Benoit Potassium [Moles/Vol] 4.5 mmol/L Normal 3.5-5.1 [facility] Comment on above: Performed By: #### L IPID, URIC, CMP #### [facility] [address] [place] [address] Dr. Zaira Benoit Protein [Mass/Vol] 7.5 g/dL Normal 6.4-8.2 [facility] Comment on above: Performed By: #### L IPID, URIC, CMP #### [facility] [address] [place] [address] Dr. Zaira Benoit Sodium [Moles/Vol] 138 mmol/L Normal 136-145 [facility] Comment on above: Performed By: #### L IPID, URIC, CMP #### [facility] [address] [place] [address] Dr. Zaira Benoit Urea nitrogen [Mass/Vol] 4.0 mg/dL Critically low 7.0-18.0 [facility] Comment on above: Performed By: #### L IPID, URIC, CMP #### [facility] [address] [place] [address] Dr. Zaira Benoit Urea nitrogen/Creatinine [Mass ratio] 4.5 mg/mg Normal [facility] Comment on above: Performed By: #### L IPID, URIC, CMP #### [facility] [address] [place] [address] Dr. Zaira Benoit URIC ACID SERUMon 05-12-2022 Urate [Mass/Vol] 7.5 mg/dL Critically high 3.5-7.2 [facility] Comment on above: Performed By: #### L IPID, URIC, CMP #### [facility] [address] [place] [address] Dr. Zaira Benoit No Panel Information [facility] Vital Signs Date Time Vital Sign Value Performing Clinician Sohail lovett 10-24-2023 14:53-0500 Body weight 97.52 kg Ale Hickman MD Work Phone: [facility] 10-24-2023 14:53-0500 Diastolic blood pressure 66 mm[Hg] Ale Hickman MD Work Phone: [facility] 10-24-2023 14:53-0500 Heart rate 79 /min Ale Hickman MD Work Phone: [facility] 10-24-2023 14:53-0500 Systolic blood pressure 157 mm[Hg] Ale Hickman MD Work Phone: [facility] 10-15-2022 10:45-0500 Diastolic blood pressure 79 mm[Hg] Jf SANCHES [facility] 10-15-2022 10:45-0500 Heart rate 86 /min Jf SANCHES [facility] 10-15-2022 10:45-0500 Systolic blood pressure 128 mm[Hg] Jf SANCHES [facility] 06-28-2022 13:37-0500 Blood Pressure Location Jf SANCHES [facility] 06-28-2022 13:37-0500 Diastolic blood pressure 89 mm[Hg] Jf SANCHES [facility] 06-28-2022 13:37-0500 Heart rate 74 /min Jf SANCHES [facility] 06-28-2022 13:37-0500 Respiratory rate 16 /min Jf SANCHES [facility] 06-28-2022 13:37-0500 Systolic blood pressure 140 mm[Hg] Jf SANCHES [facility] [place] Encounters Encounter Date Encounter Type Care Provider Facility Start: 03-06-2024 End: 03-06-[address] Not Available Start: 02-09-2024 End: 02-09-2024 ambulatory KADY CROW Not Available Start: 02-09-2024 End: 02-09-2024 ambulatory HILDA DILCIA [facility] Start: 01-26-2024 End: 01-26-2024 ambulatory KAIA Huitron JIGNESH Not Available Start: 12-27-2023 End: 12-27-2023 ambulatory RAUL SUN Facility:[facility] Start: 12-27-2023 End: 12-27-2023 Patient encounter procedure Marquis Weaver OD Work Phone: Ophthalmology Comment on above: Retinal hemorrhage, left eye (Primary Dx); History of retinal detachment; Epiretinal membrane (ERM) of left eye; Nuclear senile cataract of right eye; Pseudophakia, left eye; History of YAG laser capsulotomy of lens, left Start: 12-26-2023 End: 12-27-2023 ambulatory Trevor Forte MD Facility:[facility] Start: 12-08-2023 End: 12-08-2023 ambulatory RAUL SUN Facility:[facility] Start: 12-08-2023 End: 12-08-2023 Patient encounter procedure Ale Hickman MD Work Phone: Urology Comment on above: Elevated prostate sp ecific antigen (PSA) (Primary Dx); APPOINTMENT CANCELLED Start: 12-08-2023 End: 12-08-2023 Telemedicine consultation with patient Ale Hickman MD Work Phone: [facility] Start: 12-08-2023 Telephone encounter Ale Hickman MD Work Phone: Urology Start: 11-21-2023 End: 11-22-2023 ambulatory Trevor Forte MD Facility:[facility] Start: 11-17-2023 End: 11-17-2023 ambulatory RAUL SUN Facility:[facility] Start: 10-24-2023 End: 10-24-2023 ambulatory RAUL SUN Facility:[facility] Start: 10-24-2023 End: 10-24-2023 Patient encounter procedure Ale Hickman MD Work Phone: Urology Comment on above: Elevated prostate sp ecific antigen (PSA) (Primary Dx); BPH without obstruction/lower urinary tract symptoms Start: 10-21-2023 End: 10-21-[address] [facility] Start: 09-21-2023 End: 09-21-[address] [facility] Start: 08-26-2023 End: 08-26-2023 ambulatory DEANNAFOWLERVILLEDayana [facility] Start: 06-27-2023 End: 06-27-2023 ambulatory RAUL SUN Facility:[facility] Start: 06-06-2023 End: 06-06-2023 ambulatory RAUL SUN Facility:[facility] Start: 06-06-2023 End: 06-06-2023 Patient encounter procedure Marquis Weaver OD Work Phone: Ophthalmology Comment on above: Type 2 diabetes wil itus without retinopathy (HCC) (Primary Dx); Retinal hemorrhage, left eye; Nuclear sclerotic cataract of right eye; Pseudophakia, left eye; History of YAG laser capsulotomy of lens, left; History of retinal detachment Start: 03-02-2023 ambulatory KRISSY GRAY Facility :[facility] Start: 03-02-2023 End: 03-02-2023 Patient encounter procedure Krissy Gray MD Work Phone: Ophthalmology Comment on above: OPENED IN ERROR (Jocelyne reji Dx) Start: 10-26-2022 End: 10-27-[address] JF SANCHES . Facility: Start: 10-15-2022 End: 10-16-2022 ambulatory Jf SANCHES Facility:[facility] Start: 10-15-2022 End: 10-16-2022 ambulatory Jf SANCHES Facility:[facility] Start: 10-15-2022 End: 10-15-2022 Lab Drop off Jf SANCHES [facility] Start: 10-15-2022 End: 10-15-2022 Patient encounter procedure Jf SANCHES [facility] Start: 07-14-2022 End: 07-14-2022 ambulatory Daina Judge Facility:[facility] Start: 07-14-2022 End: 07-14-2022 ambulatory POWER SWITCHBOARD OPERATOR-C Daina Judge Work Phone: [facility] Work Phone: Start: 07-14-2022 End: 07-14-2022 Patient encounter procedure POWER SWITCHBOARD OPERATOR-C Daina Judge Work Phone: [facility] [place] Start: 06-28-2022 End: 06-29-2022 ambulatory Jf SANCHES Facility: [place] Start: 06-28-2022 End: 06-28-2022 Patient encounter procedure Jf SANCHES [facility] Start: 06-16-2022 End: 06-16-2022 Patient encounter [...] Date Procedure Procedure Detail Performing Clinician Start: 12-27-2023 Computerized ophthal marquis imaging retina Marquis Weaver OD Work Phone: Start: 10-26-[address] ZOLTAN SANCHES . Comment on above: Performed By: #### P SAD #### [facility] [address] [place] [address] Dr. aZira Benoit Start: 06-16-2022 Post-cataract laser surgery Krissy Gray MD Work Phone: Start: 05-12-[address] ZOLTAN SANCHES . Comment on above: Performed By: #### P SASC #### [facility] [address] [place] [address] Dr. Zaira Benoit Start: 02-17-2022 Computerized ophthal [...] Treatment Date Care Activity Detail Author Start: 12-28-2024 End: 12-28-2024 Patient encounter procedure 12/28/2024 1:30 PM EDT Office Visit [facility] [address] [place] [address] Marquis Weaver, OD [address] [place] [address] Annual Full Eye Exam with Mac OCT Ophthalmology Comment on above: Annual Full Eye Exam with Mac OCT Start: 12-26-2024 Glaucoma screening Dilated Retinal E xam [facility] Start: 06-27-2024 Glaucoma screening Dilated Retinal E xam [facility] Start: 06-06-2024 Hepatitis C antibody , confirmatory test Dilated Retinal Exam [facility] Start: 04-22-2024 Influenza vaccination Influenz a Vaccine (Season Ended) [facility] Start: 12-27-2023 End: 12-27-2023 Patient encounter procedure 12/27/2023 1:00 PM EDT Office Visit [facility] [address] [place] [address] Marquis Weaver, OD [address] [place] [address] RTC 6 months Dilate and oct [facility] Comment on above: RTC 6 months Dilate and oct [facility] Start: 11-24-2023 End: 02-23-2024 Prostate specific Ag [Mass/volume] in Serum or Plasma PSA/PROSTSPECAG DIAG Lab Routine Elevated prostate specific antigen (PSA) BPH without obstruction/lower urinary tract symptoms Expected: 11/24/2023 (Approximate), Expires: 02/23/2024 [facility] Work Phone: Comment on above: Expected: 11/24/2023 (Approximate), Expires: 02/23/2024 Start: 08-22-2023 Advance Directive Discussion Advance Directive Discussion [facility] Start: 08-22-2023 Behavioral Health Screening Behavioral Health Screening [facility] Start: 08-22-2023 Depression Assessment Depression Ass essment [facility] Start: 06-16-2023 Hepatitis C antibody , confirmatory test DILATED RETINAL EXAM [facility] Start: 04-22-2023 Covid-19 Vaccine () Covid-19 Vaccine ( season) [facility] Start: 04-22-2023 Influenza vaccination C [facility] Start: 03-01-2023 Hepatitis C antibody , confirmatory test DILATED RETINAL EXAM [facility] Start: 02-17-2023 Hepatitis C antibody , confirmatory test DILATED RETINAL EXAM [facility] Start: 12-11-2022 COVID-19 VACCINE (5 - Pfizer series) COVID-19 VACCINE (5 - Pfizer series) [facility] Start: 08-22-2022 ADVANCE DIRECTIVE DISCUSSION ADVANCE DIRECTIVE DISCUSSION [facility] Start: 08-22-2022 DEPRESSION ASSESSMENT DEPRESSION ASS ESSMENT [facility] Start: 05-07-2022 COVID-19 VACCINE (4 - Booster for Pfizer series) COVID-19 VACCINE (4 - Booster for Pfizer series) [facility] Start: 04-22-2022 Influenza vaccination C [facility] Start: 08-22-2021 ADVANCE DIRECTIVE DISCUSSION ADVANCE DIRECTIVE DISCUSSION [facility] Start: 08-22-2021 DEPRESSION ASSESSMENT DEPRESSION ASS ESSMENT [facility] Start: 04-16-2021 COVID-19 VACCINE (3 - Booster for Pfizer series) COVID-19 VACCINE (3 - Booster for Pfizer series) [facility] Start: 07-25-2020 COLORECTAL CANCER SCREENING COLORECTAL CANCER SCREENING [facility] Start: 07-25-2020 FECAL OCCULT BLOOD FECAL OCCULT BLOO D [facility] Start: 07-25-2020 Hepatitis B screening URINE ALBUMIN:CREATININE RATIO [facility] Start: 07-25-2020 Hepatitis B surface antibody level LDL CHOLESTEROL [facility] Start: 07-25-2020 Screening for malign ant neoplasm of colon [facility] Start: 01-24-2020 Hemoglobin A1c measurement HbA1C [facility] Start: 01-24-2020 Hemoglobin A1c/Hemoglobin.total in Blood HBA1C [facility] Start: 2009 Hepatitis B Vaccine (1 of 3 - Risk 3-dose series) Hepatitis B Vaccine (1 of 3 - Risk 3-dose series) [facility] Start: 2009 RSV Vaccine (1 - 1-d ose 60+ series) RSV Vaccine (1 - 1-dose 60+ series) [facility] Start: 11-27-1999 SHINGRIX VACCINE (1 of 2) SHINGRIX VACCINE (1 of 2) [facility] Start: 1994 COLOGUARD (FIT-DNA) COLOGUARD (FIT-D NA) [facility] Start: 1994 Colonoscopy COLONOSCOPY [facility] Start: [address] COLONOGRAPHY [facility] Start: 1994 Screening for malign ant neoplasm of colon [facility] Start: 1994 SIGMOIDOSCOPY SIGMOIDOSCOPY [facility] Start: 1968 Urine microalbumin profile [facility] Start: 11-27-1967 ANNUAL PCP TEAM SUGAR CANE PLANTER GERSON DISEASE VISIT ANNUAL PCP TEAM CHRONIC DISEASE VISIT [facility] Start: 11-27-1967 HEPATITIS C SCREENING HEPATITIS C [facility] Start: 11-27-1967 Hepatitis C screening Hepatitis C [facility] Start: 1961 Adult depression screening assessment DEPRESSION SCREENING [facility] Start: 11-27-1959 3 comp foot exam completed DIABETIC FOOT EXAM [facility] Start: 11-27-1959 Diabetic foot examination Diabetic Foot Exam [facility] Start: 11-27-1955 Pneumococcal Vaccine : 65+ (1 - PCV) Pneumococcal Vaccine: 65+ (1 - PCV) [facility] Start: 11-27-1955 Pneumococcal Vaccine : 65+ (1 of 2 - PCV) Pneumococcal Vaccine: 65+ (1 of 2 - PCV) [facility] Start: 11-27-1955 PNEUMOCOCCAL: 65+ (1 - PCV) PNEUMOCOCCAL: 65+ (1 - PCV) [facility] Start: 1949 ABDOMINAL AORTIC ANEURYSM SCREENING ABDOMINAL AORTIC ANEURYSM SCREENING [facility] Start: 1949 Abdominal aortic aneurysm screening Abdominal Aortic Aneurysm Screening [facility] Immunizations Immunization Date Immunization Notes Care Provider Rosalind alvares 03-12-2022 SARS-CoV-2 mRNA (hdajmoefsey-enhy-byaan se) vaccine Jf SANCHES [facility] Comment on above: Result Comment: 2021: [id number] 11-14-2020 COVID-19 vaccine, ag e 12+ yr (PFIZER-BIONTECH - PURPLE TOP) Krissy Gray MD Work Phone: [facility] Comment on above: Result Comment: 2021: [id number] 10-24-2020 COVID-19 vaccine, ag e 12+ yr (PFIZER-BIONTECH - PURPLE TOP) Krissy Gray MD Work Phone: [facility] Comment on above: Result Comment: 2021: [id number] Payers Date Payer Category Payer Self-pay 2017 Unknown ANTHEM BLUE CROS S AND BLUE SHIELD [employer]M MED[employer] HMO [id number] 2017-Present [phone] [address] [place] [address] O [id number] 2017 Unknown [id number] 1959 Medicare [id number] 1949 Unknown [id number] 1949 Unknown [id number] 1949 Unknown [id number] 1949 Unknown [id number] 1949 Unknown [id number] 1949 Unknown [id number] 1949 Unknown [id number] 1949 Unknown [id number] 1949 Unknown [id number] 1949 Unknown [id number] 1949 Unknown [id number] Medicare Medicare [id number] Unknown [id number] Social History Date Type Detail Facility Start: 11-03-2016 End: 06-16-2022 Tobacco smoking status NHIS Smokes tobacco daily [facility] History of tobacco use Cigarette Smoker C [facility] Start: 11-03-2016 End: 10-24-2023 Cigarettes smoked current (pack per day) - Reported 1 [facility] Start: 11-03-2016 End: 06-16-2022 Tobacco use and exposure Smokeless tobacco non-user [facility] Start: 02-17-2022 End: 12-27-2023 Alcohol intake Current drinker of alcohol (finding) [facility] Start: 11-20-2018 History SDOH Alcohol Comment per day [facility] Start: 1950 Sex Assigned At Not on file C [facility] Start: 06-28-2022 End: 10-15-2022 Tobacco smoking status Heavy tobacco smoker (finding) [facility] Start: 06-16-2022 End: 10-24-2023 Sex Assigned At Male [facility] Start: 1950 Sex Assigned At Male F [facility] National Score (1-10 0), lower number is lower risk 87 [facility] Medical Equipment Procedure Code Equipment Code Equipment Origin al Text Equipment Identifier Dates Lens Acrysof Iq +19.5 Diopter Natural Stableforce 0 D Biconvex 118.7 - [id number] Start: 02-07-2017 Functional Status Date Assessment Result Facility 10-15-2022 Functional Status N/A [facility] 06-28-2022 Functional Status N/A [facility] Clinical Notes 02-17-2022 to 02-09-2024 Marquis Weaver, JOEL - 12/27/2023 1:40 PM EDTTelephone Encounter - Ale Hickman MD - 12/13/2023 5:40 PM EDTTelephone Encounter - Ale Hickman MD - 12/13/2023 5:40 PM EDTPatient Instructions Note Date & Type Note Facility 02-09-2024 Note Greatly improved wit h increased dose of lasix. Trace edema noted today Renal function stable [facility] 02-09-2024 Note Hypertension is unch anged- stable well controlled Continue current treatment regimen. Dietary sodium restriction. Continue current medications. Blood pressure will be reassessed at the next regular appointment. [facility] 02-09-2024 Note Recommended smoking cessation after 5 min discussion and pt declined [facility] 02-09-2024 Note Patient here for 3 m o follow up hypertension and B/L LE edema. Lasix was increased at last visit, and spironolactone was added. He denies chest pain, SOB, palpitations, and lightheadedness/syncope. Says his LE edema is much better lately. Review of Systems Skin: Positive for color change and dry skin. Musculoskeletal: Positive for arthritis, back pain, joint pain and myalgias. All other systems reviewed and are negative. [facility] 02-09-2024 Note [facility] CARDIOLOGY PROGR ESS NOTE HPI: Gianfranco Martin is a 73 y.o. male here for routine 3 month F/U HPI Known PMH; HTN, LE edema, smoker Visit Vitals BP 132/78 (BP Location: Right arm, Patient Position: Sitting) Pulse 88 Ht 1.753 m (5' 9 ) Wt 97.1 kg (214 lb) SpO2 96% BMI 31.60 kg/m??? Smoking Status Every Day BSA 2.17 m??? Allergies Allergen Reactions Amlodipine Swelling Penicillin Unknown and Other Medications: Current Outpatient Medications on File Prior to Visit Medication Sig Dispense Refill albuterol 90 mcg/actuation inhaler amLODIPine (Norvasc) 5 mg tablet Take 1 tablet (5 mg) by mouth in the morning. 30 tablet 3 atenolol (Tenormin) 50 mg tablet Take 1 [...] Constitutional: Appearance: Normal appearance. Without apparent distress, obese, chronically ill HENT: Head: Normocephalic and atraumatic. Nose: Nose normal. Mouth/Throat: Mouth: Mucous membranes are moist. Eyes: Extraocular Movements: Extraocular movements intact. Conjunctiva/sclera: Conjunctivae normal. Neck: Vascular: No JVD. Cardiovascular: Rate and Rhythm: Normal rate and regular rhythm. Pulses: Dorsalis pedis pulses are 2 on the right side and 2on the left side. Posterior tibial pulses are 2 on the right side and 2 on the left side. Heart sounds: Normal heart sounds, S1 normal and S2 normal. Pulmonary: Effort: Pulmonary effort is normal. Breath sounds: Scattered Inspiratory wheezes Abdominal: General: Bowel sounds are normal. Palpations: Abdomen is soft. Musculoskeletal: General: Normal range of motion. Cervical back: Normal range of motion. Right lower leg: trace edema. Left lower leg: trace edema. Skin: General: Skin is warm and dry. Capillary Refill: Capillary refill takes less than 2 seconds. Neurological: General: No focal deficit present. Mental Status: he is alert and oriented to person, place, and time. Psychiatric: Mood and Affect: Mood normal. Behavior: Behavior normal. Thought Content: Thought content normal. Judgment: Judgment normal. Labs: Renal function normal 07/06/23 CBC normal K+ 4.0, BUN 6, CR 0.88, GFR > 60 A1C 6.8 Liver function normal Trig 78, Chol 106, HDL 53, LDL 37.4 Last lab values have been reviewed CV Testing: EKG today Sinus rhythm with Rt BBB, no acute concerns TTE 06/14/23 Assessment/Plan: Smoker Recommended smoking cessation after 5 min discussion and pt declined Hypertension Hypertension is unchanged- stable well controlled Continue current treatment regimen. Dietary sodium restriction. Continue current medications. Blood pressure will be reassessed at the next regular appointment. Edema of both lower extremities Greatly improved with increased dose of lasix. Trace edema noted today Renal function stable RTC 6months [facility] 12-27-2023 Note HNO ID: [id number] Author: MARQUIS WEAVER OD Service: ? Author Type: SUGAR CANE PLANTER Type: Progress Notes Filed: 12/27/2023 13:45 Note Text: ASSESSMENT/PLAN: 1. Retinal hemorrhage, left eye - ICD9: 362.81, ICD10: H35.62 (primary diagnosis) Few small hemes, Ho of larger heme and concerns for Branch retinal vein occlusion Pt's history suggests Diabetic but he continues to be uncertain or un aware of his Diabetes Mellitus status He has taken Metformin x 5 yrs The importance of maintaining good glucose control in order to reduce the risks of vision loss from diabetes was discussed. Keep all appropriate follow-ups for diabetic care. The patient was educated regarding the importance of regular EYE examinations and was instructed to call the office immediately if vision changes are noticed. 2. History of retinal detachment - ICD9: V12.49, ICD10: Z86.69 3. Epiretinal membrane (ERM) of left eye - ICD9: 362.56, ICD10: H35.372 Stable mild ERM Left eye with history of Retinal detachment and repair 4. Nuclear senile cataract of right eye - ICD9: 366.16, ICD10: H25.11 Pt ed Monitor for blur signs and/or symptoms 5. Pseudophakia, left eye - ICD9: V43.1, ICD10: Z96.1 6. History of YAG laser capsulotomy of lens, left - ICD9: V45.61, ICD10: Z98.42 Stable Monitor December 27, 2023 1:40 PM [facility] 12-27-2023 Note Date of Procedure 12/27/2023. Interpretation Right Eye Normal without fluid. Findings include Negative for Intraretinal fluid, Cystoid macular edema. Left Eye Abnormal foveal contour. Findings include Negative for Intraretinal fluid, Cystoid macular edema. Interval Change Right Eye Stable. Left Eye Stable. [facility] 12-27-2023 History of Present illness Narrative ASSESSMENT/PLAN: 1. Retinal hemorrhage, left eye - ICD9: 362.81, ICD10: H35.62 (primary diagnosis) Few small hemes, Ho of larger heme and concerns for Branch retinal vein occlusion Pt's history suggests Diabetic but he continues to be uncertain or un aware of his Diabetes Mellitus status He has taken Metformin x 5 yrs The importance of maintaining good glucose control in order to reduce the risks of vision loss from diabetes was discussed. Keep all appropriate follow-ups for diabetic care. The patient was educated regarding the importance of regular EYE examinations and was instructed to call the office immediately if vision changes are noticed. 2. History of retinal detachment - ICD9: V12.49, ICD10: Z86.69 3. Epiretinal membrane (ERM) of left eye - ICD9: 362.56, ICD10: H35.372 Stable mild ERM Left eye with history of Retinal detachment and repair 4. Nuclear senile cataract of right eye - ICD9: 366.16, ICD10: H25.11 Pt ed Monitor for blur signs and/or symptoms 5. Pseudophakia, left eye - ICD9: V43.1, ICD10: Z96.1 6. 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 To schedule office visit to discuss prostate bx if he wishes Ale Hickman MD [facility] Work Phone: 12-13-2023 Miscellaneous Notes Please call again and update me Please notify patient that his PSA is rising from 9 to 10.6 He needs prostate bx Can be done in office under local anesthesia or in ASC under MAC ( [place] sleep) 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 to mixing 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 Service: ? Author Type: ? Type: Progress Notes Filed: 12/08/2023 14:51 Note Text: 72 year old male with nuclear sclerotic senile, ERM, pseudophakia here today for elevated PSA. PSA PSA PSA, PERCENT FREE Latest Ref Rng <2.60 ng/mL % 07/25/2019 5.33 (H) 6 5.34 (H) 11/17/2023 10.58 (H) Attempted to call patient at 2:41. No answer. [facility] 12-08-2023 History of Present illness Narrative 72 year old male with nuclear sclerotic senile, ERM, pseudophakia here today for elevated PSA. PSA PSA PSA, PERCENT FREE Latest Ref Rng <2.60 ng/mL % 07/25/2019 5.33 (H) 6 5.34 (H) 11/17/2023 10.58 (H) Attempted to call patient at 2:41. No answer. documented in this encounter [facility] 10-24-2023 Note HNO ID: [id number] Author: ?, ?, ? Service: ? Author Type: ? Type: Progress Notes Filed: 10/24/2023 15:09 Note Text: Gianfranco Martin [address] [place] [address] 72 year old male with nuclear sclerotic [...] 2007 Retinal detachment, left eye, repaired in [place], [place] PAST SURGICAL HISTORY OF hernia sx, [...] nontender, w/o nodules. Good anal sphincter tone. [facility] SYMPTOMS SCORE. Date 10/24/2023 1. [...] the services describe (more content not included)... [facility] 10-24-2023 Instructions Raven Babcock - 10/24/2023 3:05 PM EST -PSA in 4 weeks at [facility] lab -Schedule telephone visit in 5 weeks to discuss PSA blood test documented in this encounter [facility] 10-24-2023 History of Present illness [place] [address] 72 year old male with nuclear sclerotic [...] 2007 Retinal detachment, left eye, repaired in [place], [place] PAST SURGICAL HISTORY OF hernia sx, [...] nontender, w/o nodules. Good anal sphincter tone. [facility] ASSOCIATION SYMPTOMS SCORE. Date 10/24/2023 1. [...] - Moderate By signing my name below, IRaven, attest that this documentation has been prepared under the direction and in the presence of Dr. Hickman. Ayde Oliveira Provider Attestation: Ale Huggins M.D., personally performed the services described in this documentation. All medical record entries made by the scribe were at my direction and in my presence. I have reviewed the chart and discharge instructions (if applicable) and agree that the record reflects my personal performance and is accurate and complete. Ale Hickman M.D. documented in this encounter [facility] 10-21-2023 Note PCP increased lasix to 40 mg daily, and I started aldactone at last visit. Renal function remains normal [facility] 10-21-2023 Note Patient is unsure of his medications, why he takes each med and sometimes not sure if he is taking them once or twice a day [facility] 10-21-2023 Note Hypertension is stil l elevated and leg swelling pt states is unchanged Resume norvasc 5 mg daily, continue atenolol, losartan bid, aldactone and lasix [facility] 10-21-2023 Note Patient here for 1 m [...] All other systems reviewed and are negative. [facility] 10-21-2023 Note [facility] CARDIOLOGY PROGR ESS NOTE [...] reason for each medication that he takes. [facility] 09-21-2023 Note Start aldactone and continue lasix 40 mg daily Repeat bmp 1 week [facility] 09-21-2023 Note Hypertension is unco ntrolled, and with leg swelling/edema asked pt to stop norvasc and start aldactone. Repeat labs in 1 week and to notify office for any concerns/ side effects- muscle cramps, tenderness. Pt does not check b/p at home [facility] 09-21-2023 Note Recommended smoking cessation- pt is not agreeable at this time [facility] 09-21-2023 Note Reports WILLAMS, noted w [...] week to check renal function and electrolytes. [facility] 09-21-2023 Note [facility]TP CARDIOLOGY PROGR ESS [...] and he may proceed with physical therapy. [facility] 09-21-2023 Note Patient here for car [...] All other systems reviewed and are negative. [facility] 08-26-2023 Note Cardiology Clinic No te [...] time -Optimize med (more content not included)... [facility] 08-26-2023 Note New patient here to establish care. Ref from Daina Judge CNP for hypertension. She ordered stress test recently but he was unable to complete it due to inability to lie flat. He smokes 1.5 PPD and drinks about 5 beers daily. Denies chest pain, palpitations, and lightheadedness. Says his LE are always taut and swollen. [facility] 06-27-2023 Note HNO ID: [id number] Author: Kenyon Angel OD Service: ? Author Type: SUGAR CANE PLANTER Type: Progress Notes Filed: 06/27/2023 1:37 PM [...] Angel, OD June 27, 2023 1:37 PM [facility] 06-06-2023 Note HNO ID: [id number] Author: Marquis Weaver OD Service: ? Author Type: SUGAR CANE PLANTER Type: Progress Notes Filed: 06/06/2023 2:29 PM [...] Weaver, OD June 06, 2023 2:22 PM [facility] 06-06-2023 History of Present illness Narrative [...] 2023 2:22 PM documented in this encounter [facility] 10-15-2022 Hospital Discharge instructions Patient Education [...] one of these risk factors: ?Being of -Iranian descent. ?Having a family history of prostate [...] you: Are older than age 55. Are -Iranian. Have a father, brother, or uncle who [...] 05/19/2018 Document Revised: 07/21/2018 Document Reviewed: 05/19/2018 Enish Patient Education 2019 [employer]. Follow Up Care 10/05/2022 09:16:20 With:SELENA LEONG, Jf Reis, URL Address: [address] [place] [address] [place] [address]- When: Unknown [facility] 06-28-2022 Note Chief Complaint Referral-Elevated PSA [...] [facility] [address], [place] [address] [phone] Additional Instructions: pt will f/u based on [...] Father. Immunizations Vaccine Date Status Comments SARSCoV2 mRNA(qkxtwcyxu-fnnj-zketzz) vac 03/12/2022 Recorded 2022-06-28: TPV70 SARS-CoV-2 (COVID-19) mRNA BNT-162b2 vax 11/14/2020 Recorded 2022-06-28: TPV70 SARS-CoV-2 (COVID-19) mRNA BNT-162b2 vax 10/24/2020 Recorded 2022-06-28: TPV70 Lab Results Test Name Test Result Date/Time PSA, External 6.8 ng/mL 05/20/2022 08:26 EDT PSA, External 8.41 ng/mL 05/12/2022 08:25 EDT Diagnostic Results Test (more content not included)... [facility] Comment on above: Result Comment: Elec [...] urethra. Follow these instructions at home: Take qume-vkf-rbivbqk and prescription medicines only as told by [...] 08/08/2006 Document Revised: 07/03/2019 Document Reviewed: 09/12/2017 Enish Patient Education 2020 [employer]. Follow Up Care 05/27/2022 15:25:17 With:SELENA LEONG, Jf Reis, URL Address: [facility] [address] , [place] [phone] When: Unknown [facility] 06-16-2022 History of Present illness Narrative [...] Z96.1 -S/P PCIOL Left eye (02/07/17) Aim: [place] by Dr. 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 Nuclear senile cataract of right eye - ICD9: 366.16, ICD10: H25.11 He is still happy enough with his vision and opts to follow up with Dr. Gray January 2023 for exam/cataract evaluation 4. History of retinal detachment - left eye - ICD9: V12.49, ICD10: Z86.69 history of retinal detachment repair OS 2007 in [place]. [place]. Call/come in for evaluation immediately if [...] Krissy Gray MD documented in this encounter [facility] 03-01-2022 History of Present illness Narrative [...] 2022 4:08 PM documented in this encounter [facility] 02-26-2022 Miscellaneous Notes Called to let patient know we were able to get him an appointment in [place] at 4pm, left message. SENTHIL Ballesteros February 26, 2022 3:[address] Gray and she recommends that he be seen today. Please reach out to Patient to see if we can get appointment. SENTHIL Ballesteros February 26, 2022 2:57 PM documented in this encounter [facility] 02-17-2022 History of Present illness Narrative [...] h/o retinal detachment repair OS 2007 in [place]. Stable. Call/come in for evaluation immediately if [...] eye -S/P PCIOL Left eye (02/07/17) Aim: [place] by Dr. Gray Signs and symptoms of posterior capsular opacification were reviewed. Discussed possible eventual need for Yag laser posterior capsulotomy. Patient is still happy enough with vision, so declines Yag procedure for now. stable; he remains happy with his vision OS and with OTC readers If he wishes to get new glasses, previously offered an undilated refraction with our optometrists in [place]; he was told that vision with new glasses would not be perfect due to cataract OD; he also has mild PCO OS and Epiretinal membrane OS. He sees a nurse practitioner in [place] Offered for him to establish with a F floors buffer in [place] Return to clinic in 12 months for [...] Gray MD 02/17/22 documented in this encounter [facility] Evaluation + Plan note No data available for this section [facility] Evaluation note Diagnosis Nuclear senile cataract [...] by other means [facility] Diagnosis 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, left- [...] both upper eyelids [facility] Diagnosis 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, left- [...] stated as uncontrolled [facility] noteNo assessment information availableKn[facility] Work Phone: Evaluation note* Diagnosis OPENED IN ERROR- Primary To allow closing an encounter opened in error (used in SmartSet) [facility]* Diagnosis Type 2 diabetes mellitus without [...] and sense organs [facility] Diagnosis Elevated prostate specific antigen (PSA)- Primary BPH without obstruction/lower urinary tract symptoms Hypertrophy of prostate without urinary obstruction and other lower urinary tract symptoms (LUTS) [facility] Diagnosis Elevated prostate specific antigen (PSA)- Primary APPOINTMENT CANCELLED Retinal hemorrhage, left eye- Primary Retinal hemorrhage History of retinal detachment Personal history of other disorders of nervous system and sense organs Epiretinal membrane (ERM) of left eye [facility] Diagnosis Retinal hemorrhage, left eye- Primary Retinal hemorrhage History of retinal detachment Personal history of other disorders of nervous system and sense organs Epiretinal membrane (ERM) of left eye Nuclear senile cataract of right eye Pseudophakia, left eye Lens replaced by other means History of YAG laser capsulotomy of lens, left documented in this encounter [facility] Discharge instructions No data available for this section [facility] No data available for this section [facility] Medications Administered Section Active Administered Medications - up to 3 most recent administrations Medication Order MAR Action Action Date Dose Rate Site fluorescein-benoxinate 0.25-0.4 % 1 Drop (FLURESS) 1 Drop, BOTH EYES, DIRECTED, Starting on Tue02/17/22 at 1330, Until Tue02/18/22 at 0129, Administer for applanation tonometry. In the event of a Fluress shortage, administer 1 drop of [place]-Fluor into both eyes as directed for applanation [...] the event of a Fluress shortage, administer [place]-Fluor 1 drop into both eyes as directed [...] FoundDocuments on File Type Date Recorded Patient Lead Operator Expl anation Advance Directive(s) 02/07/2017 9:56 AM [...] or prosecute any alcohol or drug abuse patient.[facility] the event this information is protected by the Federal Confidentiality of Alcohol and Drug Abuse Patient Records regulations: The Federal rules restrict any use of the information to criminally investigate or prosecute any alcohol or drug abuse patient.[facility] HospitalIn the event this information is protected by the Federal Confidentiality of Alcohol and Drug Abuse Patient Records regulations: The Federal rules restrict any use of the information to criminally investigate or prosecute any alcohol or drug abuse patient.[facility] Hospital[facility] the event this information is protected by the Federal Confidentiality of Alcohol and Drug Abuse Patient Records regulations: The Federal rules restrict any use of the information to criminally investigate or prosecute any alcohol or drug abuse patient.[facility] HospitalIn the event this information is protected by the Federal Confidentiality of Alcohol and Drug Abuse Patient Records regulations: The Federal rules restrict any use of the information to criminally investigate or prosecute any alcohol or drug abuse patient.[facility] HospitalIn the event this information is protected by the Federal Confidentiality of Alcohol and Drug Abuse Patient Records regulations: The Federal rules restrict any use of the information to criminally investigate or prosecute any alcohol or drug abuse patient.[facility] HospitalIn the event this information is protected by the Federal Confidentiality of Alcohol and Drug Abuse Patient Records regulations: The Federal rules restrict any use of the information to criminally investigate or prosecute any alcohol or drug abuse patient.[facility] HospitalIn the event this information is protected by the Federal Confidentiality of Alcohol and Drug Abuse Patient Records regulations: The Federal rules restrict any use of the information to criminally investigate or prosecute any alcohol or drug abuse patient.[facility] HospitalIn the event this information is protected by the Federal Confidentiality of Alcohol and Drug Abuse Patient Records regulations: The Federal rules restrict any use of the information to criminally investigate or prosecute any alcohol or drug abuse patient.[facility] HospitalIn the event this information is protected by the Federal Confidentiality of Alcohol and Drug Abuse Patient Records regulations: The Federal rules restrict any use of the information to criminally investigate or prosecute any alcohol or drug abuse patient.[facility] HospitalIn the event this information is protected by the Federal Confidentiality of Alcohol and Drug Abuse Patient Records regulations: The Federal rules restrict any use of the information to criminally investigate or prosecute any alcohol or drug abuse patient.[facility] Reason for Visit (unrecogniz ed section and content) Reason Comments Cataract Follow Up Reason Comments Nuclear senile cataract of right eye Epiretinal membrane (ERM) of left eye 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 Reason Comments YAG Evaluation Reason Comments Opened In Error Reason Comments Pseudophakia Diabetes Reason Comments Consult Reason Comments Lab & Test Results Reason Comments Retinal hemorrhage, left eye Care Teams (unrecognized sec tion and content) Electric Organ Inspector And Repairer Relationship Specialty Start Date End Date Raul Sun MD PCP - General Family Practice 02/11/21 Electric Organ Inspector And Repairer Relationship Specialty Start Date End Date Raul Sun MD PCP - General Family Practice 02/11/21 Electric Organ Inspector And Repairer Relationship Specialty Start Date End Date Raul Sun MD PCP - General Family Practice 02/11/21 Electric Organ Inspector And Repairer Relationship Specialty Start Date End Date Raul Sun MD PCP - General Family Medicine 02/11/21 Team Status: Inactive Member Role Status Dates Jf Sanches MD Attending Provider Active AMMY Darling Primary Care Provider Active Team Status: Active Member Role Status Dates NILESH DarlingC Primary Care Provider Active Electric Organ Inspector And Repairer Relationship Specialty Start Date End Date Raul Sun MD PCP - General Family Medicine 02/11/21 Electric Organ Inspector And Repairer Relationship Specialty Start Date End Date Raul Sun MD PCP - General Family Medicine 02/11/21 Electric Organ Inspector And Repairer Relationship Specialty Start Date End Date Raul Sun MD PCP - General Family Medicine 02/11/21 Daina Judge CNP [address] [place] [address] Referring Internal Medicine 10/15/23 Electric Organ Inspector And Repairer Relationship Specialty Start Date End Date Raul Sun MD PCP - General Family Medicine 02/11/21 Daina Judge CNP [address] [place] [address] Referring Internal Medicine 10/15/23 Electric Organ Inspector And Repairer Relationship Specialty Start Date End Date Raul Sun MD PCP - General Family Medicine 02/11/21 Daina Judge CNP [address] [place], [place] [id number] Referring Internal Medicine 10/15/23 Goals (unrecognized section and content) Goals may be documented in a n alternate section (unrecognized sect ion and content) No Status Records FoundNo Status Records FoundNo Status Records FoundNo Status Records FoundNo Status Records FoundNo Status Records FoundNo Status Records Found INFORMATION SOURCE (unrecogn ized section and content) DATE CREATED AUTHOR 07/29/2022 [facility] DATE CREATED AUTHOR AUTHOR'S ORGANIZ ATION 10/28/2022 [facility] DATE CREATED AUTHOR AUTHOR'S ORGANIZ ATION 12/01/2022 [facility] DATE CREATED AUTHOR AUTHOR'S ORGANIZ ATION 12/28/2023 [facility] DATE CREATED AUTHOR AUTHOR'S ORGANIZ ATION 01/01/2024 [facility] DATE CREATED AUTHOR AUTHOR'S ORGANIZ ATION 02/11/2024 [facility] DATE CREATED AUTHOR AUTHOR'S ORGANIZ ATION 03/10/2024 [facility] dical Specialists [facility] FOR RECORDS PERTAINING TO PATIENTS WHO ARE [...] BE BASED ON THE PRIMARY CLINICAL RECORDS. [employer] [facility]. provides no warranty or guarantee of the accuracy or completeness of information in this document.
[2024-05-18 15:14] LABS: Basophils Absolute Auto 0.1 10^3/uL (0.0-0.1); Basophils Percent Auto 1.6 % (0.2-2.0); Eosinophils Absolute Auto 0.2 10^3/uL (0.0-0.7); Eosinophils Percent Auto 3.1 % (0.9-7.0); Hematocrit 39.2 % (42.0-54.0); Hemoglobin 13.8 g/dL (14.0-18.0); Immature Granulocytes Abs Auto 0.01 10^3/uL (0.00-0.03); Immature Granulocytes Pct Auto 0.2 % (0.0-0.5); Lymphocytes Absolute Auto 1.6 10^3/uL (1.2-3.8); Lymphocytes Percent Auto 28.5 % (20.5-60.0); Mean Corpuscular HGB Conc 35.2 g/dL (29.9-35.2); Mean Corpuscular Hemoglobin 34.1 pg (25.9-34.0); Mean Corpuscular Volume 96.8 fL (80.0-94.0); Mean Platelet Volume 8.5 fL (9.5-13.5); Monocytes Absolute Auto 0.4 10^3/uL (0.3-0.8); Monocytes Percent Auto 7.1 % (1.7-12.0); Neutrophils Absolute Auto 3.4 10^3/uL (1.4-6.5); Neutrophils Percent Auto 59.5 % (43.0-75.0); Platelet Count 178 10^3/uL (150-450); Red Blood Count 4.05 10^6/uL (4.70-6.10); White Blood Count 5.8 10^3/uL (4.0-11.0)
[2024-05-18 15:32] LABS: Estimated Average Glucose 128 mg/dL; Glycohemoglobin A1C 6.1 % (4.5-6.2)
[2024-05-18 16:36] LABS: Alanine Aminotransferase 27 U/L (16-63); Albumin Globulin Ratio 1.1; Albumin Level 3.7 g/dL (3.4-5.0); Alkaline Phosphatase 79 U/L (46-116); Anion Gap 10.7; Aspartate Amino Transferase 22 U/L (15-37); BUN Creatinine Ratio 5.9; Bilirubin Total 0.6 mg/dL (0.2-1.0); Calcium 8.7 mg/dL (8.5-10.1); Carbon Dioxide 28.8 mmol/L (21.0-32.0); Chloride 89 mmol/L (98-107); Cholesterol 114 mg/dL (<=200); Estimated GFR (African America >60 (>=60); Estimated GFR (Non-African Ame 60 (>=60); Free T3 1.95 pg/mL (2.18-3.98); Globulin 3.3 g/dL; Glucose 140 mg/dL (74-106); HDL Cholesterol 56 mg/dL (40-60); Potassium 4.5 mmol/L (3.5-5.1); Thyroid Stimulating Hormone 2.489 uIU/mL (0.358-3.740); Triglycerides 50 mg/dL (<=150); Uric Acid 5.3 mg/dL (3.5-7.2)
[2024-05-18 16:40] LABS: Sodium 124 mmol/L (136-145)
[2024-05-18 16:44] LABS: Prostate Specific Antigen Scrn 16.17 ng/mL (<=4.00)
[2024-05-21 14:09] LABS: Insulin 20.7 uIU/mL (2.6-24.9)
== END 2024-05-18 14:56 | disposition home or self-care (01) ==
LOC: LAB 15:00
PROVIDERS: PCP Nurse Practitioner Family; Visit Provider Nurse Practitioner Family
DX: E78.5 Hyperlipidemia, unspecified (principal); E03.9 Hypothyroidism, unspecified; Z12.5 Encounter for screening for malignant neoplasm of prostate; E11.9 Type 2 diabetes mellitus without complications
CPT/HCPCS: 36415; 80053; 80061; 83036; 83525; 84436; 84443; 84481; 84550; 85025; G0103

== ENCOUNTER 2024-05-18 18:17 | Emergency (ER) | payer MEDICARE, SELFPAY ==
[2024-05-18 18:28] VITALS: BP 158/78; PULSE 78; TEMP 36.9; O2SAT 98; BMI 31.6
--- OUTSIDE RECORDS SUMMARY | 2024-05-18 18:45 | XMS_ITS | CCD ---
Author Organization [facility] CliniSyia Care Team Providers Care Forest Logistics Manager Name Role Phone Raul Sun MD Primary Care Provider [phone] DAINA JUDGE Primary Care Physician [phone] MD Jf Sanches Attending Provider [phone] AMMY Judge Primary Care Provider Daina Judge Primary Care Unavailable Jf Sanches Attending Unavailable Jf Sanches Admitting Unavailable SELENA ., DR RHOADES Admitting Unavailable SANCHES ., DR RHOADES Attending Unavailable DAINA JUDGE Primary Care Unavailable SANCHES ., DR RHOADES Consulting Unavailable DAINA JUDGE Admitting Unavailable DAINA JUDGE Attending Unavailable DAINA JUDGE Primary Care Unavailable DAINA JUDGE Consulting Unavailable ALFIE DAINA Admitting Unavailable DAINA JUDGE Attending Unavailable ALFIE, DAINA Primary Care Unavailable DAINA JUDGE Consulting Unavailable Jf SANCHES Attending Unavailable SELENA, Jf Reis Attending Unavailable DAINA JUDGE S Referring Unavailable Jf SANCHES Attending Unavailable Jf SANCHES Admitting Unavailable Raul uSn MD Primary Care Provider Daina Judge CNP Unavailable [phone] Raul Sun MD Primary Care Provider [phone] RAUL SUN Primary Care Unavailable KENYON ANGEL [...] Penicillins; Translations: [PENICILLINS] Drug Allergy 7 Rash [facility] [place] [facility] (5 sources) Penicillin; Translations: [penicillin] Drug Allergy 2 Unknown skin reaction [facility] (1 source) Penicillins Drug allergy (disorder) 2 [facility] Repository (1 source) amLODIPine; Translations: [AMLODIPINE] Drug Allergy 4 [facility] Repository Medications Current Medications Medication Drug Class(es) Dates Sig (Normalized) Sig (Original) [id number] 200 actuat albuterol 0.09 mg/actuat metered dose [...] Other eye disorders (2 sources) History of azmxhii-ejnabefh-xhi net (YAG) laser capsulotomy of lens; Translations: [...] Range Facility Office Visiton 02-09-2024 Follow-up visit [id number] Pan Martin 1950 M Date Provider Department Center 02/09/2024 HILDA OLIVO CARD [facility] Family History Problem Relation Age of Onset Coronary artery disease Father Stroke Father Family Status - Relation Status Age at Father Level of Service:46471 AR OFFICE/OUTPATIENT ESTABLISHED LOW MDM 20 MIN Normal [facility] OCT MACULA CIRRUS OU (BOTH E YES)on 12-27-2023 [facility] [place] [facility] Radiology Study observation (narrative) [facility] [place] [facility] Km 12-08-2023 [place] Telephone (ABDULKADIR) -- GIANFRANCO MARTIN ([id number]) 1950 M Date Time Provider Department 12/08/23 ALE HICKMAN During your visit today, we recorded the following information about you: Ale Hickman MD 12/13/2023 5:41 PM Signed Please call again and update me Please notify patient that his PSA is rising from 9 to 10.6 He needs prostate bx Can be done in office under local anesthesia or in ASC under MAC ( [place] sleep) 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 Can you try reaching him again with [...] Status:Closed by ALE HICKMAN on 12/08/23 Normal [facility] PSA SerPl-mCncon 11-17-2023 Prostate specific Ag [Mass/Vol] 10.58 ng/mL High <2.60 [facility] Comment on above: Order Comment: Speci men Type: BLOOD SPECIMEN Ordering Facility: [facility] Address: [address] [place] [address] Result Comment: Tomas luong PSA test methodology [...] Banuelos M.D., Ph.D., Eliazar Anna M.D., Ester eWber, M.P.H., Eliza Cohen, Krystian. Effect of Verification Bias on Screening for Prostate Cancer by Measurement of Prostatic Specific Antigen. N Engl J Med 2003,349:335-42. Performed By: #### 2 [id number] #### [facility] CLIA [id number] [address] [place] [address] [place] [address] [place] CNOVon 10-24-2023 CNOV Office Visit (UROLLN ) -- GIANFRANCO MARTIN ([id number]) 1950 M Date Time Provider Department 10/24/23 2:40 PM ALE HICKMAN During your visit today, we recorded the following information about you: Pulse Blood pressure Weight 79/minute 157/66 97.5 kg Raven Babcock 10/24/2023 3:09 PM Signed Gianfranco Jordan [facility] [address] 72 year old male with nuclear sclerotic [...] 2007 Retinal detachment, left eye, repaired in [place], [place] PAST SURGICAL HISTORY OF hernia [...] nontender, w/o nodules. Good anal sphincter tone. [facility] SYMPTOMS SCORE. Date 10/24/2023 1. [...] Moderate By (more content not included)... Normal [facility] 37on 10-21-2023 37 Resume taking norvasc/Amlodipine 5 mg daily for blood pressure Normal [facility] Office Visiton 10-21-2023 Follow-up visit [id number] Pan Martin 1950 M Date Provider Department Center 10/21/2023 120-HILDA HA CARD [facility] Family History Problem Relation Age of Onset Coronary artery disease Father Stroke Father Family Status - Relation Status Age at Father Level of Service:74828 AR OFFICE/OUTPATIENT ESTABLISHED MOD MDM 30 MIN Normal [facility] 36on 10-06-2023 36 JEANIE Bean MA Labs look good- no concerns= kidney function normal and electrolytes normal Regarding labs done on 10/04/2023 Patient made aware. Normal [facility] 37on 09-21-2023 37 Stop amlodipine- and start spironlactone- 1 tab daily. Have blood work drawn about 1 week after starting this new med to check kidney function and electrolytes. Call office for any concerns Normal [facility] Office Visiton 09-21-2023 Follow-up visit [id number] VeronicaPan gunderson 1950 M Date Provider Department Center 09/21/2023 120-HILDA HA JARAD [place] [facility] Family History Problem Relation Age of Onset Coronary artery disease Father Stroke Father Family Status - Relation Status Age at Father Level of Service:77148 AR OFFICE/OUTPATIENT ESTABLISHED MOD MDM 30 MIN Normal [facility] Office Visiton 08-26-2023 Follow-up visit [id number] LilyannaPan gunderson 1950 M Date Provider Department Center 08/26/2023 3848-FABRIZIO MACIAS Hos Family History Problem Relation Age of Onset Coronary artery disease Father Stroke Father Family Status - Relation Status Age at Father Level of Service:44448 AR OFFICE/OUTPATIENT NEW LOW MDM 30 MINUTES Normal [facility] Patient Letter FTMCon 2022 Patient [place] [facility] [place]Inserted Image. Prema ble to display) November 30, 20[place] [address] GIANFRANCO MARTIN 1950 Dear Gianfranco Martin, Executive [...] Jf Sanches M.D., F.A.C.S. [facility] [address] [place] [address]aleksandr BartholomewDriver, [place] [address] , OPTION #3 SENT REGULAR/CERTIFIED MAIL [facility] Coding Summary.on 10-27-2022 Coding Summary. CD:[id number] Gh0bWw +PGhlYWQ+LS5SPXNrZ91hlMYcy M3mW2ZBOGdZTodwJNZBEMmOPeD senMfFP4thYErZYFw IC8+IL9rGHBxWfhfoOAgu6V7bQ U0P73lpn2hPGcpnPM2FFHkVmDl pwcrx8regLm9LBhwWfyzPaDu TJHhmF21FRU4nT64Mw29hWZwgX Nbk7owuUy0DpNcCFNwRSM7aGcl COxri8ErUUBvK01giDBms0K8 YYHpcRdypQSqRrEenPQ6tG1jDY zaxjzce0tbyyanGzi3wi97uDFl u1Y0uZC1N7DaroA8NDPotQAb BfevgIYEbH7ujnkcq9zyjtpbUa TeHQBmEEz4EXv3UYYgvIwjJmUm HK48OPK2BRRxepRtK0RwLMOf vVewSiB6f1W8Fc8EV7FQPgwjM8 VNTUFSWTwvdGQ+PT99jz11E8Ex FrngAur6DCNgZBE3bJH2pL2c EXYfQZzcc2C0xKI2E7JhgvBieq 9go9hdVQKyDBqbX47igADno9H3 GQTgyLW7BIQvsBdmItEraO89 Oyc+PIRthNlux5DbJpsnr1ajh4 erbNq9UppdZDDbaaWpyKdeZFM8 z8MaFz5pTBFdjCQ9dWR1jU9m ZmXmDzZ1KZgxS803MxThqSInMt vrV28uP3KrhAF+JQEoRxq0WXOb vKxcIC5cO6OrCJUdgyshhOTu yLjuFW3hEXKsugnnCPBzzI8vPP QqV7a1CrZiWuQ3RRhcC9AqPDKb lytjDu83iF0qAqEoVoC0RVin L9SdftZ8QNIyePRpYPzqSMT9K8 6ck5T3ZOBqCRXpRAJ9nXF6bC2x bGlnbjogbGVmdDsgdmVydGlj BQuwONnlE583AUFikVylSyXsRS luZyBEYXRlOiAgMDMvMDgvMjAy MzwvdGQ+HFRnHNK0eDzbIVUg fTKeVRatHd5fiXvetOtfUI0xXU AytaevFVCefJ6zROQtaJRaoPik WI6iAHYwxgtjl772HcOrEYQ2 PXXhdRUzD0GyyC4tVyDgZSBbQS KxK5FatMVhAAabY532WLhhWkP9 UEDheiGuQ6BoHOAzdSbuXuG1 s2K2Jz8Zc0QegvpoD6PldIXnCz EdJoseVIi6V8ZmMlhbySD+PC90 BPByJL29WUu2SMX4fEkkHEry KSTzY5AudS6bYqIxATIlMYVaBz c+PHRhYmxlIHdpZHRoPScxMDAl TmIhtIcnSQ5tJp5hSZEmUPYv wLrhtNCwTxRdc8wyJWTxFNplND 1ybEzmC0SovDY2LMEqp1z6Ma31 B89aZ7MnsGH+DNZojJS6gXR9 bN5bEiGnZbS8THnmO812UdKwiH VdIevfg7rog2qppLs3IcB4KOFd gsEuaArfOIZ5c9YkIe11Z53a IHdpZHRoPSIxNSUiIHZhbGlnbj 6wcY1bHf5+YKLfqAJ1pRN6yZ6u GvWvGpM9PBqgC333VrNnmBGm Nqzbi3qan4qnzKq9AhOqBSVpel IkrIdhJMK0e3YwQl96E0ExfHgu z2IoObb8eo11pNInw7Y0rKC0 R7UhNESoyrirlTAgqVvqRA9gCZ ZbfnixZQVfaY8yRNPwR8y7TaBp PlU9NFxsV8NvffU3HSLmiUPp ZWPloKLYkA4blzxbz1biozytWd EuPVZjRCh4RMh5YUQswKsjFnHq QAW6DiK6IUD7hWWadB1crDbw qgiswK6pIra+TSR3nLAlsPNXTK 1lOjwvdGQ+PUUoUPF6hMqsTWey QGLshE1aCWCxE1t3CsUpMgF1 LArzK8RhecB5KVXqoCYeZNLiqE DRrF1zeshhm8yowixmTnSvSEEy ZMx4NUs2QKNenBtcLdIxSYN8 WgY5EQY5eKMtdL3xlJruovjkzX 9wOyc+SigmhKrfVPX9NIt1X1Hq Nsa9JHFyiImuOC9bmKQrANyc Bx2fdZmkwQmfUE8sCPUfvqgjs3 28NkLdm3spUONswRArWRqhXJL6 U30qw6C6JEDpHWFeLMK0bPA6 zX1isVcrpyhpbCCnwYkuepQqgZ avZImuZUcnI098ZGZoqAiaZdNs KXi4L7WiGje0KTTwlSbqQR3x uWNbFWzmSh6hlJaesDxnAR3iMA Ximxxrf726NkDjz2viHWQziCWx CVvbHHY6A07fr5W5LAUcDDJa TZU1rZR0tS7loCakxqjftJSdsB fnouMphZchUXinTIwjW753GLAm yBsmKsLszJy7W2TnCrl3JLTx dMlcFC2dbQMvCGzkYb2riNlsnO uuYJ3oFJGgezjnv394TzQme1hj YYOykRMhWUndQNC4F11xz7W4 JMZyOZEpQAU4tYI9pJ8qwNnzyr ogbGVmdDsgdmVydGljYWwtYWxp A988EQBwcCghRtTptCahwmXs CLlyMIt6O6KmWczrvXT+PC90YW CgIF03qXTbuDXbg4iitZo5VoPq PZDwLTX2eCpbHXkch8WkTUHw F09yvHVph1U8UZIlqOhanYFkKn KhiZS9vC0wNDfdelufe4qmnund Icgqk0adgm32wN06G05jZZrq MTRuMQPwCDWrRJXidWbmxb8tpX 9wIi8+OWKwtAU4cGN9uJ3bEHQa ZeS2AMepY403CiTftXRwLskv p7www2blrAv2TsQ8CEQvtjGqbJ roKYT7w8GkIk70C89mURhbSPXf LJYbTHZqOMTbeZlxrb0smN1b Ii8+YKIdeUT7kSD0cG6zNnXfYq K8CJccM001SaJpbPGnIovuB77x F5MjyVI+RGIpMvr7QNAnjJxx OP1lhFTkBOukWc9pZPJ8NjUgPv DkILudI7NyXMQspwljlydpgIR9 KARtSLLjeK51Lg7ojMofPTCr oYXMnI3ysbrhe8pagbkcLpGxLB KsJWl5DRw4SLWtiBieOxGqLKV7 CbZ2KGK8jPDzoF6tySlxuygy lZ2sM1PaFNXovixdTc82bW9kKh TvVdP1VBebDqx+UFVMTEFOTywg EekRL5yKYjgwzGK+PHRkIHN0 iZtkAJdeNJYdaI8xPAHfC1e8Al UcTnA5ICarD3GaBJIgpggkVn56 xP4vJdXuTuV2QVhyL3GotkX7 IBQbpEBlVMdmGSL9I07ko8V3LQ UmZEVsKFP0iYE8sH3rfHsxggbe bGVmdDsgdmVydGljYWwtYWxp R844UZWwiIpaOzI3EeL0ZtQ2WP Y6I1FdOja6BVIoqQhgNS5abSKu BAbkUh4lbZtocIonTT5tTROa cxivNOEgcN9aJTGgkGVinSruFD 6bLPSxbwbtz182HxDfOTN6NVKo dQOyN0UvpP4kRyNzBCFjGGQo P0QfqBOvKNmpH792PEmcBdG3IJ OjqyWfN0UsDKQgbFoaEbR2z5A0 Jv36PnXETCLqnrbrrEB+PHRk QWV2gHbeEZqaJLFdtK5rWEMzH5 f1XgPdKeQ8RInjD0OiVNGmvffy Es29tX8uUyMqCzP6SIvpV1Dp vuD3FMQdiTJuUEpeUOC4K05eh8 L2ZHGeGFTrFAT3oVC4cA8mtSxt bjogbGVmdDsgdmVydGljYWwt LFdvT622TBJqcSrtMv3eoTK7W0 DtMyc2FBGqaUgpWV0ymMXoZSjv Fi6xsWclvXnaJS3kZRAdwmlq GHKcfV2dTKAfiJHpzZysNV6zZD Sfutonh469DgUfWOR3RFQtbENp I5UbtS5sKdVzLBOcCZLuR8Hs bZUhUTnpL700LSeyXaQ5KRXilr JnI3RbNEItvXfeLfG3q4S8Hy6C XVTgAZVxvHLqSxK9L3OrMkrp dHI+BM92MKIqQC32lBVoaTGuj5 cbqYx6QvEiZSPqSAL5zAmwAAwi v8LhZZQxB14okEHyu5E4QNWr gOparACbKtNstSY8hJ4bVAubee ikn0vwuwspAbwkl6vass98vS65 W32mZPwtLOKxGEFhAETaCJEd oYcnci2kdK8iQr4+VLLrtSR9xQ W9tI5mDoOjUaK9WXotA059IrGq cWLgBozub0hfn1iedPx9CmDp RWDpvwOvsXuzKPH0v6ViKf07U2 9sIHdpZHRoPSIyMCUiIHZhbGln pk2ygT2pTn0+OF6dy2owxw99 gC23kLX+DJGmXYW1mUnsKBdyHV BbwN1nBDjcSwY1TBTaVlDfaF86 uKYnNJliOz6ewSzemGrpNJ7u FHMyfzztb608EfRdt9hrRWZeyL YmLOglCWL6P73qz9U2MNUwOPKv OGG6aAD2eJ4giUcrowfqqKIe fVivbwRbkYolZOvnZApvO081HE MyzHzaUlGjxZJxD2frdoEBFY4f OjwvdGQ+QIFfODO4bTecFVrs XVFtsG2wKHIwI0r8JsTxYeE9HV juM0XgdmR8NNPwiCGvYDEcjGZD qV2lxjuev2ftczteCxNbEXUd JWl8RUx3DDMzkElrCbJiWJU8Lk W0ITE1yMPkzL3myWgrzeecpZ2n Oyc+RklOOjwvdGQ+PHRkIHN0 xHsuTGktZBMinL4nPTHkW4m4Ck VeCpQ9NQzmC0QvmwW0MTYebGMl AYWaxURCgL7reekdy3rvphhr OaBsAUVtWRo2NVr1KUVsfXiaZf ArWER3WfN4LLX4jCAqmM0voCrs qmplhO4oWra+TVJOOjwvdGQ+ RDTvZVW4oOxnOBmfRMVvsV1qVM CiN0v1FqIiAzT2VRtbT1FfsrC6 BGEawTMtYPFboPGIuU9dfzrl q1anubqxIsCoZOSjHJy5YId0DB YbcPqqMkCdCGY1McA1RMU9aTEv jN5uaYqtxrzorQ9rPyk+UGF5 OYS8GQ64JN42C1SpTzufuBIoxF U+PHRhYmxlIHdpZHRoPScxMDAl YyHvqOhsUD0mHf2oNSDuRCFu bGxh (more content not included)... [facility] Lab Reportson 10-27-2022 Lab Reports [id number]#[id number]:127 [facility] Ambulatory Visit Summaryon 0 10-15-2022 Ambulatory Visit Summary GIANFRANCO MARTIN :1950 Visit Date:10/15/2022 Ambulatory Visit Instructions Your Diagnosis Elevated PSA Benign prostatic hyperplasia (BPH) with post-void dribbling Tests Performed Urnls Dip Stick Auto w/o Microscopy POC 29763 Your Care Team Attending Physician - SELENA [...] with SELENA LEONG, STEFANI Seo When: Where: [address] [place] [id number]- Medications What When Instructions Unchanged amlodipine (amLODIPine [...] Urnls Dip Stick Auto w/o Microscopy POC 89380 (10/15/2022) Bilirubin Urine Dipstick - Negative Blood Urine Dipstick - Negative Glucose Urine Dipstick - Negative Ketones Urine Dipstick - Negative Leukocytes Urine Dipstick - Negative Nitrite Urine Dipstick - Negative Protein Urine Dipstick - Negative Specific [place] Urine Dipstick - 1.010 Urine Appearance Urine [...] of these risk factors: ? Being of -[place] descent. ? Having a family history of prostate cancer. ? If you are age 55?69, talk with your health care provider about (more content not included)... [facility] Patient Educationon 10-15-19 Patient Education Oncology [...] of these risk factors: ? Being of -[place] descent. ? Having a family history of [...] Are older than age 55. ? Are -[place]. ? Have a father, brother, or uncle [...] R (more content not included)... [facility] Urology Office/Clinic Noteon 10-15-2022 Urology Office/Clinic [...] Contact Information SELENA LEONG, Jf Reis, [address] [place] [address]- Additional Instructions: PSA today - await results [...] Father. Immunizations Vaccine Date Status Comments SARSCoV2 mRNA(qscrpikul-eebx-agsypc ) vac 03/12/2022 Recorded 2022-06-28: TPV70 SARS-CoV-2 [...] Dipstick: Negativ (more content not included)... [facility] Comment on above: Result Comment: Elec tronically Signed By: Jf SANCHES MD\.br\Date and Time Signed: 10/15/22 11:23 EST\.br\Electronically Co-Signed By: Dori Wynne\.br\Date and Time Co-Signed: 10/15/22 11:19 EST\.br\Electronically Co-Signed By: Dori Wynne\.br\Date and Time Co-Signed: 10/15/22 11:21 EST Creatinine (Bld) [Mass/Vol]O rdered By: Jf Sanches on 07-14-2022 Creatinine [Mass/Vol] 0.8 mg/dL 0.6-1.3 [facility] Comment on above: ER/ESD physician is notified/shown all ISTAT results.Critical values may be confirmed by laboratory testing ifdeemed necessary by ER attending doctor. ISTAT XRay CREon 07-14-2022 Creatinine [Mass/Vol] 0.8 mg/dL Normal 0.6-1.3 [facility] Comment on above: Result Comment: ER/E SD physician is notified/shown all ISTAT results. Critical values may be confirmed by laboratory testing if deemed necessary by ER attending doctor. Performed By: #### I SCRE #### [facility] [address] [place] [address] Point of Care testing , ISTAT GFR ( > [address] [facility] Comment on above: Result Comment: GFR estimated reference range: According to KDOQI guidelines, <60 ml/min/1.73m2 is sufficient to diagnose a patient with chronic kidney disease. PERFORMED BY: [place] [address] PATHOLOGIST MANAGER MEAT MADELYN LAIRD M.D. Performed By: #### I SCRE #### [facility] [address] [place] [address] Point of Care testing , ISTAT GFR (Non- Am > [address] [facility] Comment on above: Performed By: #### I SCRE #### [address] Point of Care testing , No Panel InformationOrdered By: Jf Sanches on 07-14-2022 POC Estimated GFR > 60 [facility] Comment on above: GFR estimated refere nce range: According to KDOQI guidelines, <60 ml/min/1.73m2 is sufficient to diagnose a patient with chronic kidney disease. POC Estimated GFR Non- Amer > 60 [facility] Pre-Certification Formon Pre-Certification Form [id number]#1.00CD:127 [facility] Lab Reportson 07-05-2022 Lab Reports [id number]#1.00CD:127 [facility] Physician Referralon 022 Physician Referral [id number]#[id number]:127 [facility] Ambulatory Visit Summaryon 1 08-28-2021 Ambulatory [...] Jf SANCHES MD Primary Care Physician - ADINA JUDGE CNP Referring Physician - DAINA JUDGE [...] Urology [address], [place] [phone] Medications What When Instructions Unchanged amlodipine (amLODIPine [...] prostate gland (more content not included)... [facility] Historical Records Officeon 06-28-2022 Historical Records Office [id number]#[id number]:127 [facility] Patient Educationon 06-28-20 22 Patient Education [...] Follow these instructions at home: ? Take dfem-rxh-qbmjfey and prescription medicines only as told by [...] You d (more content not included)... [facility] PSA, FREE AND TOTAL RATIOon 05-21-2022 % Free PSA 7.1 % Normal [facility] Comment on above: Result Comment: The table [...] SAFREE #### [facility] [address] [place] [address] Dr. Zaira Benoit Prostate specific Ag [Mass/Vol] 6.8 ng/mL Critically high 0.0-4.0 [facility] Comment on above: Result Comment: Bryant PERRYIA methodology. . According to the [place] [employer], Serum PSA should decrease and [...] SAFREE #### [facility] [address] [place] [address] Dr. Zaira Benoit PSA, Free 0.48 ng/mL Normal N/A [facility] Comment on above: Result Comment: Bryant woodruff ECLJUANY methodology. Performed By: #### P SAFREE #### [facility] [address] [place] [address] Dr. Zaira Benoit INSULINon 05-13-2022 Insulin 7.8 uIU/mL Normal 2.6-24.9 [facility] Comment on above: Performed By: #### I NSULIN #### [facility] [address] [place] [address] Dr. Zaira Benoit CBC AUTO DIFFon 05-12-2022 BASO # 0.1 103/ul Normal 0.0-0.1 [facility] Comment on above: Performed By: #### C BC #### [facility] [address] [place] [address] Dr. Zaira Benoit Basophils/100 WBC (Bld) 0.9 % Normal 0.2-2.0 [facility] Comment on above: Performed By: #### C BC #### [facility] [address] [place] [address] Dr. Zaira Benoit EO # 0.2 103/ul Normal 0.0-0.7 [facility] Comment on above: Performed By: #### C BC #### [facility] [address] [place] [address] Dr. Zaira Benoit Eosinophils/100 WBC (Bld) 2.1 % Normal 0.9-7.0 [facility] Comment on above: Performed By: #### C BC #### [facility] [address] [place] [address] Dr. Zaira Benoit Erythrocyte distribution width (RBC) [Ratio] 13.2 % Normal 11.0-15.0 [facility] Comment on above: Performed By: #### C BC #### [facility] [address] [place] [address] Dr. Zaira Benoit Hematocrit (Bld) [Volume fraction] 46.6 % Normal 42.0-54.0 [facility] Comment on above: Performed By: #### C BC #### [facility] [address] [place] [address] Dr. Zaira Benoit Hemoglobin (Bld) [Mass/Vol] 15.5 g/dL Normal 14.0-18.0 [facility] Comment on above: Performed By: #### C BC #### [facility] [address] [place] [address] Dr. Zaira Benoit IG # 0.02 10e3/ul Normal 0.00-0.03 [facility] Comment on above: Performed By: #### C BC #### [facility] [address] [place] [address] Dr. Zaira Benoit IG % 0.3 % Normal 0.0-0.5 [facility] Comment on above: Performed By: #### C BC #### [facility] [address] [place] [address] Dr. Zaira Benoit LYMPH # 2.6 103/ul Normal 1.2-3.8 [facility] Comment on above: Performed By: #### C BC #### [facility] [address] [place] [address] Dr. Zaira Benoit Lymphocytes/100 WBC (Bld) 36.9 % Normal 20.5-60.0 [facility] Comment on above: Performed By: #### C BC #### [facility] [address] [place] [address] Dr. Zaira Benoit MANUAL DIFF REQ NO Normal [facility] Comment on above: Performed By: #### C BC #### [facility] [address] [place] [address] Dr. Zaira Benoit MCH (RBC) [Entitic mass] 33.2 pg Normal 25.9-34.0 [facility] Comment on above: Performed By: #### C BC #### [facility] [address] [place] [address] Dr. Zaira Benoit MCHC (RBC) [Mass/Vol] 33.3 g/dL Normal 29.9-35.2 [facility] Comment on above: Performed By: #### C BC #### [facility] [address] [place] [address] Dr. Zaira Benoit MCV (RBC) [Entitic vol] 99.8 fL Critically high 80.0-94.0 [facility] Comment on above: Performed By: #### C BC #### [facility] [address] [place] [address] Dr. Zaira Benoit MONO # 0.6 103/ul Normal 0.3-0.8 [facility] Comment on above: Performed By: #### C BC #### [facility] [address] [place] [address] Dr. Zaira Benoit Monocytes/100 WBC (Bld) 9.1 % Normal 1.7-12.0 [facility] Comment on above: Performed By: #### C BC #### [facility] [address] [place] [address] Dr. Zaira Benoit NEUT # 3.6 103/ul Normal 1.4-6.5 [facility] Comment on above: Performed By: #### C BC #### [facility] [address] [place] [address] Dr. Zaira Benoit Neutrophils/100 WBC (Bld) 50.7 % Normal 43.0-75.0 [facility] Comment on above: Performed By: #### C BC #### [facility] [address] [address] [address] Zaira Benoit Platelet mean volume (Bld) [Entitic vol] 9.3 fL Critically low 9.5-13.5 [facility] Comment on above: Performed By: #### C BC #### [facility] [address] [address] [address] Zaira Benoit PLT 191 103/ul Normal 150-450 [facility] Comment on above: Performed By: #### C BC #### [facility] [address] [address] [address] Zaira Benoit RBC 4.67 106/ul Critically low 4.70-6.10 [facility] Comment on above: Performed By: #### C BC #### [facility] [address] [place] [address] Dr. Zaira Benoit WBC 7.0 103/ul Normal 4.0-11.0 [facility] Comment on above: Performed By: #### C BC #### [facility] [address] [place] [address] Dr. Zaira Benoit GLYCOHEMOGLOBIN A1Con 2021 ADA RECOMMENDATION SEE BELOW Normal [facility] Comment on above: Result Comment: ADA RECOMMENDED LIMIT 4.0 - 6.0 ADA THERAPEUTIC TARGET < 7.0 ACTION SUGGESTED > 7.0 Performed By: #### A 1C #### [facility] [address] [address] [address] Zaira Benoit Glucose [Mass/Vol] 151 mg/dL Normal [facility] Comment on above: Performed By: #### A 1C #### [facility] [address] [address] [address] Zaira Benoit HbA1c (Bld) [Mass fraction] 6.9 % Critically high 4.5-6.2 [facility] Comment on above: Performed By: #### A 1C #### [facility] [address] [place] [address] Dr. Zaira Benoit LIPID PROFILEon 05-12-2022 CHOL-HDL RATIO NORM SEE BELOW Normal [facility] Comment on above: Result Comment: 3.3 - 4.4 LOW RISK 4.4 - 7.1 AVERAGE RISK 7.1 - 11.0 MODERATE RISK >11.0 HIGH RISK Performed By: #### L IPID, URIC, CMP #### [facility] [address] [address] [address] Zaira Benoit Cholesterol [Mass/Vol] 132 mg/dL Normal <=200 [facility] Comment on above: Performed By: #### L IPID, URIC, CMP #### [facility] [address] [address] [address] Zaira Benoit Cholesterol in HDL [Mass/Vol] 53 mg/dL Normal 40-60 [facility] Comment on above: Performed By: #### L IPID, URIC, CMP #### [facility] [address] [address] [address] Zaira Benoit Cholesterol in LDL [Mass/Vol] 59.6 mg/dL Normal [facility] Comment on above: Performed By: #### L IPID, URIC, CMP #### [facility] [address] [place] [address] Dr. Zaira Benoit Cholesterol.total/Ch olesterol in HDL [Mass ratio] 2.5 {ratio} Normal [facility] Comment on above: Performed By: #### L IPID, URIC, CMP #### [facility] [address] [place] [address] Dr. Zaira Benoit HDL NORMAL > or = 60 mg/dl - LO W CARDIOVASCULAR RISK <40 mg/dl - HIGH CARDIOVASCULAR RISK Normal [facility] Comment on above: Performed By: #### L IPID, URIC, CMP #### [facility] [address] [address] [address] Zaira Benoit LDL CALC NORMAL SEE BELOW Normal [facility] Comment on above: Result Comment: <100 mg/dl OPTIMAL 100 - 129 mg/dl NEAR OR ABOVE OPTIMAL 130 - 159 mg/dl BORDERLINE HIGH 160 - 189 mg/dl HIGH >190 mg/dl VERY HIGH Performed By: #### L IPID, URIC, CMP #### [facility] [address] [address] [address] Zaira Benoit Triglyceride [Mass/Vol] 97 mg/dL Normal <=150 [facility] Comment on above: Performed By: #### L IPID, URIC, CMP #### [facility] [address] [place] [address] Dr. Zaira Benoit VLDL CALC 19.4 mg/dL Normal [facility] Comment on above: Performed By: #### L IPID, URIC, CMP #### [facility] [address] [place] [address] Dr. Zaira Benoit PROF 14(COMP METB)on 022 Albumin [Mass/Vol] 3.9 g/dL Normal 3.4-5.0 [facility] Comment on above: Performed By: #### L IPID, URIC, CMP #### [facility] [address] [place] [address] Dr. Zaira Benoit Albumin/Globulin [Mass ratio] 1.1 {ratio} Normal [facility] Comment on above: Performed By: #### L IPID, URIC, CMP #### [facility] [address] [place] [address] Dr. Zaira Benoit ALP [Catalytic activity/Vol] 92 U/L Normal 46-116 [facility] Comment on above: Performed By: #### L IPID, URIC, CMP #### [facility] [address] [place] [address] Dr. Zaira Benoit ALT [Catalytic activity/Vol] 31 U/L Normal 16-63 [facility] Comment on above: Performed By: #### L IPID, URIC, CMP #### [facility] [address] [place] [address] Dr. Zaira Benoit Anion gap [Moles/Vol] 12.2 mmol/L Normal [facility] Comment on above: Performed By: #### L IPID, URIC, CMP #### [facility] [address] [place] [address] Dr. Zaira Benoit AST [Catalytic activity/Vol] 20 U/L Normal 15-37 [facility] Comment on above: Performed By: #### L IPID, URIC, CMP #### [facility] [address] [place] [address] Dr. Zaira Benoit Bilirubin [Mass/Vol] 0.4 mg/dL Normal 0.2-1.0 [facility] Comment on above: Performed By: #### L IPID, URIC, CMP #### [facility] [address] [place] [address] Dr. Zaira Benoit Calcium [Mass/Vol] 8.8 mg/dL Normal 8.5-10.1 [facility] Comment on above: Performed By: #### L IPID, URIC, CMP #### [facility] [address] [address] [address] Zaira Benoit Chloride [Moles/Vol] 101 mmol/L Normal 98-107 [facility] Comment on above: Performed By: #### L IPID, URIC, CMP #### [facility] [address] [place] [address] Dr. Zaira Benoit CO2 [Moles/Vol] 29.3 mmol/L Normal 21.0-32.0 [facility] Comment on above: Performed By: #### L IPID, URIC, CMP #### [facility] [address] [place] [address] Dr. Zaira Benoit Creatinine [Mass/Vol] 0.88 mg/dL Normal 0.70-1.30 [facility] Comment on above: Performed By: #### L IPID, URIC, CMP #### [facility] [address] [address] [address] Zaira Benoit EGFR-AF BOTSWANAN >60 Normal >=60 [facility] Comment on above: Performed By: #### L IPID, URIC, CMP #### [facility] [address] [place] [address] Dr. Zaira Benoit EGFR-NON AF BOTSWANAN >60 Normal >=60 [facility] Comment on above: Performed By: #### L IPID, URIC, CMP #### [facility] [address] [address] [address] Zaira Benoit Globulin (S) [Mass/Vol] 3.6 g/dL Normal [facility] Comment on above: Performed By: #### L IPID, URIC, CMP #### [facility] [address] [address] [address] Zaira Benoit Glucose [Mass/Vol] 128 mg/dL Critically high 74-106 [facility] Comment on above: Performed By: #### L IPID, URIC, CMP #### [facility] [address] [place] [address] Dr. Zaira Benoit Potassium [Moles/Vol] 4.5 mmol/L Normal 3.5-5.1 [facility] Comment on above: Performed By: #### L IPID, URIC, CMP #### [facility] [address] [place] [address] Dr. Zaria Benoit Protein [Mass/Vol] 7.5 g/dL Normal 6.4-8.2 [facility] Comment on above: Performed By: #### L IPID, URIC, CMP #### [facility] [address] [place] [address] Dr. Zaira Benoit Sodium [Moles/Vol] 138 mmol/L Normal 136-145 [facility] Comment on above: Performed By: #### L IPID, URIC, CMP #### [facility] [address] [place] [address] Dr. Zaira Benoit Urea nitrogen [Mass/Vol] 4.0 mg/dL Critically low 7.0-18.0 [facility] Comment on above: Performed By: #### L IPID, URIC, CMP #### [facility] [address] [place] [address] Dr. Zaira Benoit Urea nitrogen/Creatinine [Mass ratio] 4.5 mg/mg Normal [facility] Comment on above: Performed By: #### L IPID, URIC, CMP #### [facility] [address] [place] [address] Dr. Zaira Benoit URIC ACID SERUMon 05-12-2022 Urate [Mass/Vol] 7.5 mg/dL Critically high 3.5-7.2 [facility] Comment on above: Performed By: #### L IPID, URIC, CMP #### [facility] [address] [place] [address] Dr. Zaira Benoit No Panel Information [facility] Vital Signs Date Time Vital Sign Value Performing Clinician Sohail lovett 10-24-2023 14:53-0500 Body weight 97.52 kg Ale Hickman MD Work Phone: [facility] 10-24-2023 14:53-0500 Diastolic blood pressure 66 mm[Hg] Ale Hickman MD Work Phone: [facility] 10-24-2023 14:53-0500 Heart rate 79 /min Ale Hickman MD Work Phone: [facility] 10-24-2023 14:53-0500 Systolic blood pressure 157 mm[Hg] Ale Hickman MD Work Phone: [facility] 10-15-2022 10:45-0500 Diastolic blood pressure 79 mm[Hg] Jf SANCHES [facility] 10-15-2022 10:45-0500 Heart rate 86 /min Jf SANCHES [facility] 10-15-2022 10:45-0500 Systolic blood pressure 128 mm[Hg] Jf SANCHES [facility] 06-28-2022 13:37-0500 Blood Pressure Location Jf SANCHES [facility] 06-28-2022 13:37-0500 Diastolic blood pressure 89 mm[Hg] Jf SANCHES [facility] 06-28-2022 13:37-0500 Heart rate 74 /min Jf SANCHES [facility] 06-28-2022 13:37-0500 Respiratory rate 16 /min Jf SANCHES [facility] 06-28-2022 13:37-0500 Systolic blood pressure 140 mm[Hg] Jf SANCHES [facility] Encounters Encounter Date Encounter Type Care Provider Facility Start: 03-06-2024 End: 03-06-[address] Not Available Start: 02-09-2024 End: 02-09-2024 ambulatory KADY CROW Not Available Start: 02-09-2024 End: 02-09-2024 ambulatory HIDLA DILCIA [facility] Start: 01-26-2024 End: 01-26-2024 ambulatory KAIA Huitron JIGNESH Not Available Start: 12-27-2023 End: 12-27-2023 ambulatory RAUL SUN Facility:[facility] Start: 12-27-2023 End: 12-27-2023 Patient encounter procedure Marquis Weaver OD Work Phone: Ophthalmology Comment on above: Retinal hemorrhage, left eye (Primary Dx); History of retinal detachment; Epiretinal membrane (ERM) of left eye; Nuclear senile cataract of right eye; Pseudophakia, left eye; History of YAG laser capsulotomy of lens, left Start: 12-26-2023 End: 12-27-2023 ambulatory Trevor Forte MD Facility:[facility] Start: 12-08-2023 End: 12-08-2023 ambulatory RAUL SUN Facility:[facility] Start: 12-08-2023 End: 12-08-2023 Patient encounter procedure Ale Hickman MD Work Phone: Urology Comment on above: Elevated prostate sp ecific antigen (PSA) (Primary Dx); APPOINTMENT CANCELLED Start: 12-08-2023 End: 12-08-2023 Telemedicine consultation with patient Ale Hickman MD Work Phone: [facility] Start: 12-08-2023 Telephone encounter Ale Hickman MD Work Phone: Urology Start: 11-21-2023 End: 11-22-2023 ambulatory Trevor Forte MD Facility:[facility] Start: 11-17-2023 End: 11-17-2023 ambulatory RAUL SUN Facility:[facility] Start: 10-24-2023 End: 10-24-2023 ambulatory RAUL SUN Facility:[facility] Start: 10-24-2023 End: 10-24-2023 Patient encounter procedure Ale Hickman MD Work Phone: Urology Comment on above: Elevated prostate sp ecific antigen (PSA) (Primary Dx); BPH without obstruction/lower urinary tract symptoms Start: 10-21-2023 End: 10-21-2023 ambulatory [facility] Start: 09-21-2023 End: 09-21-2023 ambulatory [facility] Start: 08-26-2023 End: 08-26-2023 ambulatory DEANNAALDERSONDayana [facility] Start: 06-27-2023 End: 06-27-2023 ambulatory RAUL SUN Facility:[facility] Start: 06-06-2023 End: 06-06-2023 ambulatory RAUL SUN Facility:[facility] Start: 06-06-2023 End: 06-06-2023 Patient encounter procedure Marquis Weaver OD Work Phone: Ophthalmology Comment on above: Type 2 diabetes wil itus without retinopathy (HCC) (Primary Dx); Retinal hemorrhage, left eye; Nuclear sclerotic cataract of right eye; Pseudophakia, left eye; History of YAG laser capsulotomy of lens, left; History of retinal detachment Start: 03-02-2023 ambulatory KRISSY GRAY Facility :[facility] Start: 03-02-2023 End: 03-02-2023 Patient encounter procedure Krissy Gray MD Work Phone: Ophthalmology Comment on above: OPENED IN ERROR (Jocelyne reji Dx) Start: 10-26-2022 End: 10-27-[address] JF SANCHES . Facility: Start: 10-15-2022 End: 10-16-2022 ambulatory Jf SANCHES [facility] Start: 10-15-2022 End: 10-16-2022 ambulatory Jf SANCHES Facility:[facility] Start: 10-15-2022 End: 10-15-2022 Lab Drop off Jf SANCHES [facility] Start: 10-15-2022 End: 10-15-2022 Patient encounter procedure Jf SANCHES [facility] Start: 07-14-2022 End: 07-14-2022 ambulatory Daina Judge Facility:[facility] Start: 07-14-2022 End: 07-14-2022 ambulatory [employer] Daina Judge Work Phone: [facility] Work Phone: Start: 07-14-2022 End: 07-14-2022 Patient encounter procedure [employer]-C Daina Judge Work Phone: [facility] [place] Start: 06-28-2022 End: 06-29-2022 ambulatory Jf SANCHES Facility: [facility] Start: 06-28-2022 End: 06-28-2022 Patient encounter procedure Jf SANCHES [facility] Start: 06-16-2022 End: 06-16-2022 Patient encounter [...] SAD #### [facility] [address] [place] [address] Dr. Zaira Benoit Start: 06-16-2022 Post-cataract laser surgery Krissy Gray MD Work Phone: Start: 05-12-[address] ZOLTAN SANCHES . Comment on above: Performed By: #### P SASC #### [facility] [address] [place] [address] Dr. Zaira Benoit Start: 02-17-2022 Computerized ophthal [...] PM EDT Office Visit [facility] [address] [place] [address] Marquis Weaver, OD [address] [place] [address] Annual Full Eye Exam with Mac OCT Ophthalmology Comment on above: Annual Full Eye Exam with Mac OCT Start: 12-26-2024 Glaucoma screening Dilated Retinal E xam [facility] Start: 06-27-2024 Glaucoma screening Dilated Retinal E xam [facility] Start: 06-06-2024 Hepatitis C antibody , confirmatory test Dilated Retinal Exam [facility] Start: 04-22-2024 Influenza vaccination Influenz a Vaccine (Season Ended) [facility] Start: 12-27-2023 End: 12-27-2023 Patient encounter procedure 12/27/2023 1:00 PM EDT Office Visit [facility] [address] [place] [address] Marquis Weaver, OD [address] [place] [address] RTC 6 months Dilate and oct [facility] Comment on above: RTC 6 months Dilate and oct [facility] Start: 11-24-2023 End: 02-23-2024 Prostate specific Ag [Mass/volume] in Serum or Plasma PSA/PROSTSPECAG DIAG Lab Routine Elevated prostate specific antigen (PSA) BPH without obstruction/lower urinary tract symptoms Expected: 11/24/2023 (Approximate), Expires: 02/23/2024 [facility] Work Phone: Comment on above: Expected: 11/24/2023 (Approximate), Expires: 02/23/2024 Start: 08-22-2023 Advance Directive Discussion Advance Directive Discussion [facility] Start: 08-22-2023 Behavioral Health Screening Behavioral Health Screening [facility] Start: 08-22-2023 Depression Assessment Depression Ass essment [facility] Start: 06-16-2023 Hepatitis C antibody , confirmatory test DILATED RETINAL EXAM [facility] Start: 04-22-2023 Covid-19 Vaccine () Covid-19 Vaccine ( season) [facility] Start: 04-22-2023 Influenza vaccination [facility] Start: 03-01-2023 Hepatitis C antibody , confirmatory test DILATED RETINAL EXAM [facility] Start: 02-17-2023 Hepatitis C antibody , confirmatory test DILATED RETINAL EXAM [facility] Start: 12-11-2022 COVID-19 VACCINE (5 - Pfizer series) COVID-19 VACCINE (5 - Pfizer series) [facility] Start: 08-22-2022 ADVANCE DIRECTIVE DISCUSSION ADVANCE DIRECTIVE DISCUSSION [facility] Start: 08-22-2022 DEPRESSION ASSESSMENT DEPRESSION ASS ESSMENT [facility] Start: 05-07-2022 COVID-19 VACCINE (4 - Booster for Pfizer series) COVID-19 VACCINE (4 - Booster for Pfizer series) [facility] Start: 04-22-2022 Influenza vaccination C [facility] Start: 08-22-2021 ADVANCE DIRECTIVE DISCUSSION ADVANCE DIRECTIVE DISCUSSION [facility] Start: 08-22-2021 DEPRESSION ASSESSMENT DEPRESSION ASS ESSMENT [facility] Start: 04-16-2021 COVID-19 VACCINE (3 - Booster for Pfizer series) COVID-19 VACCINE (3 - Booster for Pfizer series) [facility] Start: 07-25-2020 COLORECTAL CANCER SCREENING COLORECTAL CANCER SCREENING [facility] Start: 07-25-2020 FECAL OCCULT BLOOD FECAL OCCULT BLOO D [facility] Start: 07-25-2020 Hepatitis B screening URINE ALBUMIN:CREATININE RATIO [facility] Start: 07-25-2020 Hepatitis B surface antibody level LDL CHOLESTEROL [facility] Start: 07-25-2020 Screening for malign ant neoplasm of colon [facility] Start: 01-24-2020 Hemoglobin A1c measurement HbA1C [facility] Start: 01-24-2020 Hemoglobin A1c/Hemoglobin.total in Blood HBA1C [facility] Start: 2009 Hepatitis B Vaccine (1 of 3 - Risk 3-dose series) Hepatitis B Vaccine (1 of 3 - Risk 3-dose series) [facility] Start: 2009 RSV Vaccine (1 - 1-d ose 60+ series) RSV Vaccine (1 - 1-dose 60+ series) [facility] Start: 11-27-1999 SHINGRIX VACCINE (1 of 2) SHINGRIX VACCINE (1 of 2) [facility] Start: 1994 COLOGUARD (FIT-DNA) COLOGUARD (FIT-D NA) [facility] Start: 1994 Colonoscopy COLONOSCOPY [facility] Start: [address] COLONOGRAPHY [facility] Start: 1994 Screening for malign ant neoplasm of colon [facility] Start: 1994 SIGMOIDOSCOPY SIGMOIDOSCOPY [facility] Start: 1968 Urine microalbumin profile [facility] Start: 11-27-1967 ANNUAL PCP TEAM MANAGER MEAT GERSON DISEASE VISIT ANNUAL PCP TEAM CHRONIC DISEASE VISIT [facility] Start: 11-27-1967 HEPATITIS C SCREENING HEPATITIS C SC [facility] Start: 11-27-1967 Hepatitis C screening Hepatitis C [facility] Start: 1961 Adult depression screening assessment DEPRESSION SCREENING [facility] Start: 11-27-1959 3 comp foot exam completed DIABETIC FOOT EXAM [facility] Start: 11-27-1959 Diabetic foot examination Diabetic Foot Exam [facility] Start: 11-27-1955 Pneumococcal Vaccine : 65+ (1 - PCV) Pneumococcal Vaccine: 65+ (1 - PCV) [facility] Start: 11-27-1955 Pneumococcal Vaccine : 65+ (1 of 2 - PCV) Pneumococcal Vaccine: 65+ (1 of 2 - PCV) [facility] Start: 11-27-1955 PNEUMOCOCCAL: 65+ (1 - PCV) PNEUMOCOCCAL: 65+ (1 - PCV) [facility] Start: 1950 ABDOMINAL AORTIC ANEURYSM SCREENING ABDOMINAL AORTIC ANEURYSM SCREENING [facility] Start: 1950 Abdominal aortic aneurysm screening Abdominal Aortic Aneurysm Screening [facility] Immunizations Immunization Date Immunization Notes Care Provider Rosalind alvares 03-12-2022 SARS-CoV-2 mRNA (rjzytmovaan-edhl-xnylv se) vaccine Jf SANCHES [facility] Comment on above: Result Comment: 2021: [id number] 11-14-2020 COVID-19 vaccine, ag e 12+ yr (PFIZER-BIONTECH - PURPLE TOP) Krissy Gray MD Work Phone: [facility] Comment on above: Result Comment: 2021: [id number] 10-24-2020 COVID-19 vaccine, ag e 12+ yr (PFIZER-BIONTECH - PURPLE TOP) Krissy Gray MD Work Phone: [facility] Comment on above: Result Comment: 2021: [id number] Payers Date Payer Category Payer Self-pay 2017 Unknown [employer] S [employer] HMO [id number] 2017-Present [phone] [address] [place] [address] O [id number] 2017 Unknown [id number] 1959 Medicare [id number] 1949 Unknown [id number] 1949 Unknown [id number] 1949 Unknown [id number] 1949 Unknown [id number] 1949 Unknown [id number] 1949 Unknown [id number] 1949 Unknown [id number] 1949 Unknown [id number] 1949 Unknown [id number] 1949 Unknown [id number] 1949 Unknown [id number] Medicare Medicare [id number] Unknown [id number] Social History Date Type Detail Facility Start: 11-03-2016 End: 06-16-2022 Tobacco smoking status NHIS Smokes tobacco daily [facility] History of tobacco use Cigarette Smoker [facility] Start: 11-03-2016 End: 10-24-2023 Cigarettes smoked current (pack per day) - Reported 1 [facility] Start: 11-03-2016 End: 06-16-2022 Tobacco use and exposure Smokeless tobacco non-user [facility] Start: 02-17-2022 End: 12-27-2023 Alcohol intake Current drinker of alcohol (finding) [facility] Start: 11-20-2018 History SDOH Alcohol Comment per day [facility] Start: 1950 Sex Assigned At Not on file [facility] Start: 06-28-2022 End: 10-15-2022 Tobacco smoking status Heavy tobacco smoker (finding) [facility] Start: 06-16-2022 End: 10-24-2023 Sex Assigned At Male [facility] Start: 1950 Sex Assigned At Male F [facility] National Score (1-10 0), lower number is lower risk 87 [facility] Medical Equipment Procedure Code Equipment Code Equipment Origin al Text Equipment Identifier Dates Lens Acrysof Iq +19.5 Diopter Natural Stableforce 0 D Biconvex 118.7 - [id number] Start: 02-07-2017 Functional Status Date Assessment Result Facility 10-15-2022 Functional Status N/A [facility] 06-28-2022 Functional Status N/A [facility] Clinical Notes 02-17-2022 to 02-09-2024 Marquis Weaver, JOEL - 12/27/2023 1:40 PM EDTTelephone Encounter - Ale Hickman MD - 12/13/2023 5:40 PM EDTTelephone Encounter - Ale Hickman MD - 12/13/2023 5:40 PM EDTPatient Instructions Note Date & Type Note Facility 02-09-2024 Note Greatly improved wit h increased dose of lasix. Trace edema noted today Renal function stable [facility] 02-09-2024 Note Hypertension is unch anged- stable well controlled Continue current treatment regimen. Dietary sodium restriction. Continue current medications. Blood pressure will be reassessed at the next regular appointment. [facility] 02-09-2024 Note Recommended smoking cessation after 5 min discussion and pt declined [facility] 02-09-2024 Note Patient here for 3 [...] All other systems reviewed and are negative. [facility] 02-09-2024 Note UTP CARDIOLOGY PROGR ESS [...] noted today Renal function stable RTC 6months [facility] 12-27-2023 Note HNO ID: [id number] Author: MARQUIS WEAVER OD Service: ? Author Type: SUPERVISOR FISH BAIT PROCESSING Type: Progress Notes Filed: 12/27/2023 13:45 Note [...] Stable Monitor December 27, 2023 1:40 PM [facility] 12-27-2023 Note Date of Procedure 12/27/2023. 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 To schedule office visit to discuss prostate bx if he wishes Ale Hickman MD [facility] Work Phone: 12-13-2023 Miscellaneous Notes Please call again and update me Please notify patient that his PSA is rising from 9 to 10.6 He needs prostate bx Can be done in office under local anesthesia or in ASC under MAC ( [facility]) 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 To schedule office visit to discuss prostate bx if he wishes Ale Hickman MD documented in this encounter [facility] 12-08-2023 Miscellaneous Notes Phone visit unsuccessful and had only VOICE MAIL X 2 I DID NOT LEAVE A MESSAGE Please notify patient that his PSA is rising from 9 to 10.6 He needs prostate bx Can be done in office under local anesthesia or in ASC under MAC ( [facility]) 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 Service: ? Author Type: ? Type: Progress Notes Filed: 12/08/2023 14:51 Note Text: 72 year old male with nuclear sclerotic senile, ERM, pseudophakia here today for elevated PSA. PSA PSA PSA, PERCENT FREE Latest Ref Rng <2.60 ng/mL % 07/25/2019 5.33 (H) 6 5.34 (H) 11/17/2023 10.58 (H) Attempted to call patient at 2:41. No answer. [facility] 12-08-2023 History of Present illness Narrative 72 year old male with nuclear sclerotic senile, ERM, pseudophakia here today for elevated PSA. PSA PSA PSA, PERCENT FREE Latest Ref Rng <2.60 ng/mL % 07/25/2019 5.33 (H) 6 5.34 (H) 11/17/2023 10.58 (H) Attempted to call patient at 2:41. No answer. documented in this encounter [facility] 10-24-2023 Note HNO ID: [id number] Author: ?, ?, ? Service: ? Author Type: ? Type: Progress Notes Filed: 10/24/2023 15:09 Note Text: Gianfranco Martin [address] [place] [address] 72 year old male with nuclear sclerotic [...] 2007 Retinal detachment, left eye, repaired in [place], [place] PAST SURGICAL HISTORY OF hernia [...] nontender, w/o nodules. Good anal sphincter tone. [facility] SYMPTOMS SCORE. Date 10/24/2023 1. [...] the services describe (more content not included)... [facility] 10-24-2023 Instructions Raven Babcock - 10/24/2023 3:05 PM EST -PSA in 4 weeks at [facility] lab -Schedule telephone visit in 5 weeks to discuss PSA blood test documented in this encounter [facility] 10-24-2023 History of Present illness [place] [address] 72 year old male with nuclear sclerotic [...] 2007 Retinal detachment, left eye, repaired in [place], [place] PAST SURGICAL HISTORY OF hernia [...] nontender, w/o nodules. Good anal sphincter tone. [facility] SYMPTOMS SCORE. Date 10/24/2023 1. INCOMPLETE EMPTYING 1 2. FREQUENCY 1 3. INTERMITTENCY 1 4. URGENCY 1 5. WEAK STREAM 2 6. STRAINING 1 7. NOCTURIA 1 TOTAL SCORE 8 IMPRESSION: (Diagnostic Possibilities): Elevated PSA (9 outside [facility] on 10/23/23) BPH wo obstruction, AUA 1-2 30 gm prostate on NTAANAEL, no nodules PLAN: (Management Options): Elevated PSA: [...] Ale Hickman M.D. documented in this encounter [facility] 10-21-2023 Note PCP increased lasix to 40 mg daily, and I started aldactone at last visit. Renal function remains normal [facility] 10-21-2023 Note Patient is unsure of his medications, why he takes each med and sometimes not sure if he is taking them once or twice a day [facility] 10-21-2023 Note Hypertension is stil l elevated and leg swelling pt states is unchanged Resume norvasc 5 mg daily, continue atenolol, losartan bid, aldactone and lasix [facility] 10-21-2023 Note Patient here for 1 [...] All other systems reviewed and are negative. [facility] 10-21-2023 Note [facility] CARDIOLOGY PROGR ESS [...] reason for each medication that he takes. [facility] 09-21-2023 Note Start aldactone and continue lasix 40 mg daily Repeat bmp 1 week [facility] 09-21-2023 Note Hypertension is unco ntrolled, and with leg swelling/edema asked pt to stop norvasc and start aldactone. Repeat labs in 1 week and to notify office for any concerns/ side effects- muscle cramps, tenderness. Pt does not check b/p at home [facility] 09-21-2023 Note Recommended smoking cessation- pt is not agreeable at this time [facility] 09-21-2023 Note Reports WILLAMS, noted w [...] week to check renal function and electrolytes. [facility] 09-21-2023 Note [facility]TP CARDIOLOGY PROGR ESS [...] and he may proceed with physical therapy. [facility] 09-21-2023 Note Patient here for car [...] All other systems reviewed and are negative. [facility] 08-26-2023 Note Cardiology Clinic No te [...] time -Optimize med (more content not included)... [facility] 08-26-2023 Note New patient here to establish care. Ref from Daina Judge CNP for hypertension. She ordered stress test recently but he was unable to complete it due to inability to lie flat. He smokes 1.5 PPD and drinks about 5 beers daily. Denies chest pain, palpitations, and lightheadedness. Says his LE are always taut and swollen. [facility] 06-27-2023 Note HNO ID: [id number] Author: Kenyon Angel OD Service: ? Author Type: SUPERVISOR FISH BAIT PROCESSING Type: Progress Notes Filed: 06/27/2023 1:37 PM [...] Angel, OD June 27, 2023 1:37 PM [facility] 06-06-2023 Note HNO ID: [id number] Author: Marquis Weaver OD Service: ? Author Type: SUPERVISOR FISH BAIT PROCESSING Type: Progress Notes Filed: 06/06/2023 2:29 PM [...] Weaver, OD June 06, 2023 2:22 PM [facility] 06-06-2023 History of Present illness Narrative ASSESSMENT/PLAN: [...] - ICD9: 362.81, ICD10: H35.62 Hypertensive vs TAIMKO Pt ed Continue care with Medical team [...] 2023 2:22 PM documented in this encounter [facility] 10-15-2022 Hospital Discharge instructions Patient Education 10/15/2022 [...] one of these risk factors: ?Being of -[place] descent. ?Having a family history of prostate [...] you: Are older than age 55. Are -[place]. Have a father, brother, or uncle who [...] 05/19/2018 Document Revised: 07/21/2018 Document Reviewed: 05/19/2018 [employer] Patient Education 2019 ForeUp. Follow Up Care 10/05/2022 09:16:20 With:SELENA LEONG, Jf Ries, URL Address: [address] [place] [address] [place] [address]- When: Unknown [facility] [place] 06-28-2022 Note Chief Complaint [...] [facility] [address], [place] [phone] Additional Instructions: pt will f/u based on [...] Father. Immunizations Vaccine Date Status Comments SARSCoV2 mRNA(bujapeiqt-smpl-gfnplq) vac 03/12/2022 Recorded 2022-06-28: TPV70 SARS-CoV-2 (COVID-19) mRNA BNT-162b2 vax 11/14/2020 Recorded 2022-06-28: TPV70 SARS-CoV-2 (COVID-19) mRNA BNT-162b2 vax 10/24/2020 Recorded 2022-06-28: TPV70 Lab Results Test Name Test Result Date/Time PSA, External 6.8 ng/mL 05/20/2022 08:26 EDT PSA, External 8.41 ng/mL 05/12/2022 08:25 EDT Diagnostic Results Test (more content not included)... [facility] Comment on above: Result Comment: Elec [...] urethra. Follow these instructions at home: Take udav-ykr-wzvqkpu and prescription medicines only as told by [...] 08/08/2006 Document Revised: 07/03/2019 Document Reviewed: 09/12/2017 [employer] Patient Education 2020 ForeUp. Follow Up Care 05/27/2022 15:25:17 With:SELENA LEONG, Jf Reis, URL Address: [facility] [address] , [place] [phone] When: Unknown [facility] 06-16-2022 History of Present illness Narrative [...] Z96.1 -S/P PCIOL Left eye (02/07/17) Aim: [facility] by Dr. 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 Nuclear senile cataract of right eye - ICD9: 366.16, ICD10: H25.11 He is still happy enough with his vision and opts to follow up with Dr. Gray January 2023 for exam/cataract evaluation 4. History of retinal detachment - left eye - ICD9: V12.49, ICD10: Z86.69 history of retinal detachment repair OS 2007 in [place]. [place]. Call/come in for evaluation immediately if [...] with all of its relevant components. Krissy Gary MD documented in this encounter [facility] 03-01-2022 History of Present illness Narrative ASSESSMENT/PLAN: [...] 2022 4:08 PM documented in this encounter [facility] 02-26-2022 Miscellaneous Notes Called to let patient know we were able to get him an appointment in [place] at 4pm, left message. SENTHIL Ballesteros February 26, 2022 3:[address] Gray and she recommends that he be seen today. Please reach out to Patient to see if we can get appointment. SENTHIL Ballesteros February 26, 2022 2:57 PM documented in this encounter [facility] 02-17-2022 History of Present illness Narrative Assessment/ [...] h/o retinal detachment repair OS 2007 in [place]. Stable. Call/come in for evaluation immediately if [...] eye -S/P PCIOL Left eye (02/07/17) Aim: [facility] by Dr. Gray Signs and symptoms of posterior capsular opacification were reviewed. Discussed possible eventual need for Yag laser posterior capsulotomy. Patient is still happy enough with vision, so declines Yag procedure for now. stable; he remains happy with his vision OS and with OTC readers If he wishes to get new glasses, previously offered an undilated refraction with our optometrists in [place]; he was told that vision with new glasses would not be perfect due to cataract OD; he also has mild PCO OS and Epiretinal membrane OS. He sees a nurse practitioner in [place] Offered for him to establish with a F valet parker in [place] Return to clinic in 12 months for [...] Gray MD 02/17/22 documented in this encounter [facility] Evaluation + Plan note No data available for this section [facility] Evaluation note Diagnosis Nuclear senile cataract [...] by other means [facility] Diagnosis 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, left- Primary [...] both upper eyelids [facility] Diagnosis 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, left- Primary [...] stated as uncontrolled [facility] [place] [facility] noteNo assessment information availableSelect Medical [facility] [place] Work Phone: Evaluation note* Diagnosis OPENED IN ERROR- Primary To allow closing an encounter opened in error (used in SmartSet) [facility]* Diagnosis Type 2 diabetes mellitus without [...] and sense organs [facility] Diagnosis Elevated prostate specific antigen (PSA)- Primary BPH without obstruction/lower urinary tract symptoms Hypertrophy of prostate without urinary obstruction and other lower urinary tract symptoms (LUTS) [facility] Diagnosis Elevated prostate specific antigen (PSA)- Primary APPOINTMENT CANCELLED Retinal hemorrhage, left eye- Primary Retinal hemorrhage History of retinal detachment Personal history of other disorders of nervous system and sense organs Epiretinal membrane (ERM) of left eye [facility] Diagnosis Retinal hemorrhage, left eye- Primary Retinal hemorrhage History of retinal detachment Personal history of other disorders of nervous system and sense organs Epiretinal membrane (ERM) of left eye Nuclear senile cataract of right eye Pseudophakia, left eye Lens replaced by other means History of YAG laser capsulotomy of lens, left documented in this encounter [facility] Discharge instructions No data available for this section [facility] No data available for this section [facility] [place] Medications Administered Section Active Administered Medications - up to 3 most recent administrations Medication Order MAR Action Action Date Dose Rate Site fluorescein-benoxinate 0.25-0.4 % 1 Drop (FLURESS) 1 Drop, BOTH EYES, DIRECTED, Starting on Tue02/17/22 at 1330, Until Tue02/18/22 at 0129, Administer for applanation tonometry. In the event of a Fluress shortage, administer 1 drop of Aztec-Fluor into both eyes as directed for applanation [...] the event of a Fluress shortage, administer Aztec-Fluor 1 drop into both eyes as directed [...] FoundDocuments on File Type Date Recorded Patient Management Specialist Expl anation Advance Directive(s) 02/07/2017 9:56 AM [...] or prosecute any alcohol or drug abuse patient.[facility] [place] [facility] the event this information is protected by the Federal Confidentiality of Alcohol and Drug Abuse Patient Records regulations: The Federal rules restrict any use of the information to criminally investigate or prosecute any alcohol or drug abuse patient.[facility] [place] [facility] Center[facility] the event this information is protected by the Federal Confidentiality of Alcohol and Drug Abuse Patient Records regulations: The Federal rules restrict any use of the information to criminally investigate or prosecute any alcohol or drug abuse patient.[facility] [place] [facility] Center[facility] the event this information is protected by the Federal Confidentiality of Alcohol and Drug Abuse Patient Records regulations: The Federal rules restrict any use of the information to criminally investigate or prosecute any alcohol or drug abuse patient.[facility] [place] [facility] Center[facility] the event this information is protected by the Federal Confidentiality of Alcohol and Drug Abuse Patient Records regulations: The Federal rules restrict any use of the information to criminally investigate or prosecute any alcohol or drug abuse patient.[facility] [place] [facility] Center[facility] the event this information is protected by the Federal Confidentiality of Alcohol and Drug Abuse Patient Records regulations: The Federal rules restrict any use of the information to criminally investigate or prosecute any alcohol or drug abuse patient.[facility] [place] [facility] Center[facility] the event this information is protected by the Federal Confidentiality of Alcohol and Drug Abuse Patient Records regulations: The Federal rules restrict any use of the information to criminally investigate or prosecute any alcohol or drug abuse patient.[facility] [place] [facility] Center[facility] the event this information is protected by the Federal Confidentiality of Alcohol and Drug Abuse Patient Records regulations: The Federal rules restrict any use of the information to criminally investigate or prosecute any alcohol or drug abuse patient.[facility] [place] [facility] Center[facility] the event this information is protected by the Federal Confidentiality of Alcohol and Drug Abuse Patient Records regulations: The Federal rules restrict any use of the information to criminally investigate or prosecute any alcohol or drug abuse patient.[facility] [place] [facility] CenterIn the event this information is protected by the Federal Confidentiality of Alcohol and Drug Abuse Patient Records regulations: The Federal rules restrict any use of the information to criminally investigate or prosecute any alcohol or drug abuse patient.[facility] [place] [facility] Center[facility] the event this information is protected by the Federal Confidentiality of Alcohol and Drug Abuse Patient Records regulations: The Federal rules restrict any use of the information to criminally investigate or prosecute any alcohol or drug abuse patient.[facility] Reason for Visit (unrecogniz ed section and [...] Care Teams (unrecognized sec tion and content) 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 Log[employer] Manager Relationship Specialty Start Date End Date Raul Sun MD PCP - General Family Practice 02/11/21 Forest Logistics Manager Relationship Specialty Start Date End Date Raul Sun MD PCP - General Family Practice 02/11/21 Forest Logistics Manager Relationship Specialty Start Date End Date Raul Sun MD PCP - General Family Practice 02/11/21 Forest Logistics Manager Relationship Specialty Start Date End Date Raul Sun MD PCP - General Family Medicine 02/11/21 Team Status: Inactive Member Role Status Dates Jf Sanches MD Attending Provider Active AMMY Darling Primary Care Provider Active Team Status: Active Member Role Status Dates NILESH DarlingC Primary Care Provider Active [employer] Manager Relationship Specialty Start Date End Date Raul Sun MD PCP - General Family Medicine 02/11/21 Forest Logistics Manager Relationship Specialty Start Date End Date Raul Sun MD PCP - General Family Medicine 02/11/21 Forest Logistics Manager Relationship Specialty Start Date End Date Raul Sun MD PCP - General Family Medicine 02/11/21 Daian Judge CNP [address] [place] [address] Referring Internal Medicine 10/15/23 Forest Logistics Manager Relationship Specialty Start Date End Date Raul Sun MD PCP - General Family Medicine 02/11/21 Daina Judge CNP [address] [place] [address] Referring Internal Medicine 10/15/23 Forest Logistics Manager Relationship Specialty Start Date End Date Raul Sun MD PCP - General Family Medicine 02/11/21 Daina Judge CNP [address] [place], [place] [id number] Referring Internal Medicine 10/15/23 Goals (unrecognized section and content) Goals may be documented in a n alternate section (unrecognized sect ion and content) No Status Records FoundNo Status Records FoundNo Status Records FoundNo Status Records FoundNo Status Records FoundNo Status Records FoundNo Status Records Found INFORMATION SOURCE (unrecogn ized section and content) DATE CREATED AUTHOR 07/29/2022 [facility] DATE CREATED AUTHOR AUTHOR'S ORGANIZ ATION 10/28/[address] [facility] DATE CREATED AUTHOR AUTHOR'S ORGANIZ ATION 12/01/2022 [facility] DATE CREATED AUTHOR AUTHOR'S ORGANIZ ATION 12/28/2023 [facility] DATE CREATED AUTHOR AUTHOR'S ORGANIZ ATION 01/01/2024 [facility] DATE CREATED AUTHOR AUTHOR'S ORGANIZ ATION 02/11/2024 [facility] DATE CREATED AUTHOR AUTHOR'S ORGANIZ ATION 03/10/2024 [facility] FOR RECORDS PERTAINING TO PATIENTS WHO [...] BE BASED ON THE PRIMARY CLINICAL RECORDS. [facility]. provides no warranty or guarantee of the accuracy or completeness of information in this document.
--- NOTE | 2024-05-18 19:52 | ED.RECABL1 ---
HPI - Recheck/Abnormal Lab/Rx General Chief Complaint: Recheck/Abnormal Lab/Rx Stated Complaint: ABNORMAL LABS, DOC SENT TO ER Time Seen by Provider: 05/18/24 19:40 Source: patient Mode of arrival: walk-in History of Present Illness HPI narrative: patient sent to ER after abnormal lab from earlier today. Patient arrives asymptomatic. states he was told to come in but doesn't know why. States he feels well. Denies any new medications . labs from earlier reviewed adn his sodium is 124. Patient is on lasix but states he has been on it for 2 years Related Data Home Medications ?Medication ?Instructions ?Recorded ?Confirmed atenolol 50 mg tablet 50 mg PO DAILY 12/09/23 12/26/23 atorvastatin 10 mg tablet 10 mg PO DAILY 12/09/23 12/26/23 buspirone 10 mg tablet 10 mg PO BID 12/09/23 12/26/23 cyclobenzaprine 10 mg tablet 10 mg PO TID 12/09/23 12/26/23 diclofenac sodium 75 mg 75 mg PO Q12H 12/09/23 12/26/23 tablet,delayed release furosemide 20 mg tablet 20 mg PO DAILY 12/09/23 12/26/23 loratadine 10 mg tablet 10 mg PO DAILY 12/09/23 12/26/23 losartan 50 mg tablet 50 mg PO BID 12/09/23 12/26/23 metformin 500 mg tablet 500 mg PO BID 12/09/23 12/26/23 trazodone 150 mg tablet 150 mg PO BEDTIME 12/09/23 12/26/23 Allergies Allergy/AdvReac Type Severity Reaction Status Date / Time Penicillins Allergy Severe Verified 12/26/23 10:24 Review of Systems ROS Status of ROS 10 or more systems reviewed and unremarkable except as noted in history and below [facility] Medical History (Updated 05/18/24 @ 20:50 by Devon Villafuerte MD) Smoker ?F17.200 - Nicotine dependence, unspecified, uncomplicated (ICD-10) Hypertension ?I10 - Essential (primary) hypertension (ICD-10) Surgical History H/O hernia repair ?Z98.890 - Other specified postprocedural states (ICD-10) ?Z87.19 - Personal history of other diseases of the digestive system (ICD-10) H/O detached retina repair ?Z98.890 - Other specified postprocedural states (ICD-10) ?Z86.69 - Personal history of other diseases of the nervous system and sense organs (ICD-10) Exam Constitutional Vital Signs, click to edit/add: Last Vital Signs Temp 98.4 F 05/18/24 18:28 Pulse 78 05/18/24 20:50 Resp 18 05/18/24 20:50 BP 149/85 H 05/18/24 20:50 Pulse Ox 99 05/18/24 20:50 O2 Del Method Room Air 05/18/24 18:28 Common normals: no apparent distress, average body habitus, oriented x3, no limitations, healthy appearing, alert and well nourished HENMT Common normals: normocephalic and head/scalp atraumatic Eye Common normals: EOMs intact bilaterally and conjunctivae normal Respiratory Common normals: normal respiratory effort, no retractions, no use of accessory muscles and clear to auscultation bilaterally Cardio Common normals: regular rate, regular rhythm, S1 normal heart sound and S2 normal heart sound Extremity Common normals: normal to inspection and full ROM Neuro Common normals: oriented x3, CN's II-XII intact bilaterally, moves all extremities and no focal motor deficits Psych Appearance: grossly normal Course Vital Signs Vital signs: Vital Signs Temperature 98.4 F 05/18/24 18:28 Pulse Rate 78 05/18/24 18:28 Respiratory Rate 18 05/18/24 18:28 Blood Pressure 158/78 H 05/18/24 18:28 Pulse Oximetry 98 05/18/24 18:28 Oxygen Delivery Method Room Air 05/18/24 18:28 Temperature 98.4 F 05/18/24 18:28 Pulse Rate 78 05/18/24 20:50 Respiratory Rate 18 05/18/24 20:50 Blood Pressure 149/85 H 05/18/24 20:50 Pulse Oximetry 99 05/18/24 20:50 Oxygen Delivery Method Room Air 05/18/24 18:28 MDM - Recheck/Abnormal Lab/Rx MDM Narrative Medical decision making narrative: patient is asymptomatic . Presents to ER because lab test from earlier today demonstrated hyponatremia. Exam unremarkable. No new medications. Will recheck BMP Lab Data Labs: Lab Results 05/18/24 Range/Units 20:10 Sodium 126 L (136-145) mmol/L Potassium 4.5 (3.5-5.1) mmol/L Chloride 92 L (98-107) mmol/L Carbon Dioxide 28.6 (21.0-32.0) mmol/L Anion Gap 9.9 BUN 8.0 (7.0-18.0) mg/dL Creatinine 1.23 (0.70-1.30) mg/dL Est GFR ( Amer) >60 (>=60) Est GFR (Non-Af Amer) 58 L (>=60) BUN/Creatinine Ratio 6.5 Glucose 129 H (74-106) mg/dL Calcium 9.2 (8.5-10.1) mg/dL Discharge Plan Discharge Chief Complaint: Recheck/Abnormal Lab/Rx Clinical Impression: Acute hyponatremia Patient Disposition: Home, Self-Care Prescriptions / Home Meds: No Action cyclobenzaprine 10 mg tablet 10 mg PO TID diclofenac sodium 75 mg tablet,delayed release (DR/EC) 75 mg PO Q12H buspirone 10 mg tablet 10 mg PO BID trazodone 150 mg tablet 150 mg PO BEDTIME atenolol 50 mg tablet 50 mg PO DAILY atorvastatin 10 mg tablet 10 mg PO DAILY furosemide 20 mg tablet 20 mg PO DAILY loratadine 10 mg tablet 10 mg PO DAILY losartan 50 mg tablet 50 mg PO BID metformin 500 mg tablet 500 mg PO BID Print Language: Greek Instructions: Hyponatremia (ED) Additional Instructions: hold lasix a couple of days and have blood work rechecked tuesday Referrals: ENOC JUDGE [Primary Care Provider] - 1 week Discharge Date/Time: 05/18/24 20:50
[2024-05-18 20:26] LABS: Anion Gap 9.9; BUN Creatinine Ratio 6.5; Calcium 9.2 mg/dL (8.5-10.1); Carbon Dioxide 28.6 mmol/L (21.0-32.0); Chloride 92 mmol/L (98-107); Estimated GFR (African America >60 (>=60); Estimated GFR (Non-African Ame 58 (>=60); Glucose 129 mg/dL (74-106); Potassium 4.5 mmol/L (3.5-5.1); Sodium 126 mmol/L (136-145)
[2024-05-18 20:50] VITALS: BP 149/85; PULSE 78; O2SAT 99
--- NOTE | 2024-05-21 16:01 | PC.NURSE ---
this nurse calls patient at this time per request from dr carballo and dr ricks for low sodium. patient states well what is he gonna do for me? this nurse says that the er physician would see him and orders would be placed from then patient states he will just see his family dr tomorrow as scheduled this nurse again gives the patient the recommendation from the er dr and from dr carballo pt then mummargarita and states i will just see my family dr and then hangs up the phone
== END 2024-05-18 20:50 | disposition home or self-care (01) ==
PROVIDERS: Emergency Provider Internal Medicine; PCP Nurse Practitioner Family
DX: E78.5 Hyperlipidemia, unspecified (principal); E03.9 Hypothyroidism, unspecified; Z12.5 Encounter for screening for malignant neoplasm of prostate; E11.9 Type 2 diabetes mellitus without complications; E87.1 Hypo-osmolality and hyponatremia; F17.200 Nicotine dependence, unspecified, uncomplicated
CPT/HCPCS: 36415; 80048; 80053; 80061; 83036; 83525; 84436; 84443; 84481; 84550; 85025; 99283; G0103

== ENCOUNTER 2024-05-21 15:05 | Outpatient (OUT) | payer MEDICARE, SELFPAY ==
--- OUTSIDE RECORDS SUMMARY | 2024-05-21 15:10 | XMS_ITS | CCD ---
Author Organization [facility] CliniSyme Care Team Providers Care Plastic Boat Buffer Name Role Phone Raul Sun MD Primary Care Provider DAINA JUDGE Primary Care Physician [phone] MD Jf Sanches Attending Provider AMMY Judge Primary Care [...] Primary Care Provider Daina Judge CNP Unavailable [phone] Raul Sun MD Primary Care Provider [phone] RAUL SUN Primary Care Unavailable KENYON ANGEL [...] Attending Unavailable HILDA HA Attending Unavailable KAIA GEAN Attending Unavailable KADY CROW Attending Unavailable ROGERIO LANE Attending Unavailable Allergies Allergy Classification Reported Allergen(s) Allergy Type Date of Onset Reaction(s) Facility (13 sources) Penicillins; Translations: [PENICILLINS] Drug Allergy 7 Rash [facility] (5 sources) Penicillin; Translations: [penicillin] Drug Allergy 2 Unknown skin reaction [facility] (1 source) Penicillins Drug allergy (disorder) 2 [facility] Repository (1 source) amLODIPine; Translations: [AMLODIPINE] Drug Allergy [address] [facility] Repository Medications Current Medications Medication Drug Class(es) Dates Sig (Normalized) Sig (Original) [id number] 200 actuat albuterol 0.09 mg/actuat metered dose [...] Other eye disorders (2 sources) History of zkgzlmx-clwlanqp-nxc net (YAG) laser capsulotomy of lens; Translations: [...] Range Facility Office Visiton 02-09-2024 Follow-up visit [id number] Pan Martin 1950 M Date Provider Department Center 02/09/2024 HILDA OLIVO CARD [facility] Family History Problem Relation Age of Onset Coronary artery disease Father Stroke Father Family Status - Relation Status Age at Father Level of Service:15946 [place] OFFICE/OUTPATIENT ESTABLISHED LOW MDM [address] [facility] OCT MACULA CIRRUS OU (BOTH E YES)on 12-27-2023 [facility] Radiology Study observation (narrative) [facility] mK 12-08-2023 [facility] Telephone (ABDULKADIR) -- GIANFRANCO MARTIN ([id number]) 1950 M Date Time Provider Department 12/08/23 ALE HICKMAN During your visit today, we recorded the following information about you: Ale Hickman MD 12/13/2023 5:41 PM Signed Please call again and update me Please notify patient that his PSA is rising from 9 to 10.6 He needs prostate bx Can be done in office under local anesthesia or in ASC under MAC ( [place] [facility]) He can come to pick up operator flyer on prostate bx To schedule office [...] Encounter Status:Closed by ALE HICKMAN on 12/13/23 [facility] Telephone (UROLLN) -- GIANFRANCO MARTIN ([id number]) 1950 M Date Time Provider Department 12/08/23 [...] anesthesia or in ASC under MAC ( [place] [facility]) He can come to pick up operator flyer on prostate bx To update me MD Tera Pham Caitlin 12/14/2023 9:48 AM Signed This pt has still not read the sent message from [facility]. Can you try reaching him again [...] Status:Closed by ALE HICKMAN on 12/08/23 Normal [facility] PSA SerPl-mCncon 11-17-2023 Prostate specific Ag [Mass/Vol] 10.58 ng/mL High <2.60 [facility] Comment on above: Order Comment: Speci men Type: BLOOD SPECIMEN Ordering Facility: [facility] Address: [address] [place] [address] Result Comment: Tomas luong PSA test methodology [...] 2003,349:335-42. Performed By: #### 2 857-1 #### [facility] CLIA [id number] [address] [place] [address] [place] [address] [place] CNOVon 10-24-2023 CNOV Office Visit (UROLLN ) -- GIANFRANCO MARTIN ([id number]) 1950 M Date Time Provider Department 10/24/23 2:40 PM ALE HICKMAN During your visit today, we recorded the following information about you: Pulse Blood pressure Weight 79/minute 157/66 97.5 kg Raven Babcock 10/24/2023 3:09 PM Signed Gianfranco Jordan [facility] [address] 72 year old male with nuclear sclerotic [...] 2007 Retinal detachment, left eye, repaired in [place], [place] PAST SURGICAL HISTORY OF hernia sx, [...] nontender, w/o nodules. Good anal sphincter tone. [facility] SYMPTOMS SCORE. Date 10/24/2023 1. [...] Moderate By (more content not included)... Normal [facility] 37on 10-21-2023 37 Resume taking norvasc/Amlodipine 5 mg daily for blood pressure Normal [facility] Office Visiton 10-21-2023 Follow-up visit [id number] Pan Martin 1950 M Date Provider Department Center 10/21/2023 120-HILDA HA CARD [facility] Family History Problem Relation Age of Onset Coronary artery disease Father Stroke Father Family Status - Relation Status Age at Father Level of Service:43455 [place] OFFICE/OUTPATIENT ESTABLISHED MOD MDM [address] [facility] 36on 10-06-2023 36 JEANIE Bean MA Labs look good- no concerns= kidney function normal and electrolytes normal Regarding labs done on 10/04/2023 Patient made aware. Normal [facility] 37on 09-21-2023 37 Stop amlodipine- and start spironlactone- 1 tab daily. Have blood work drawn about 1 week after starting this new med to check kidney function and electrolytes. Call office for any concerns Normal [facility] Office Visiton 09-21-2023 Follow-up visit [id number] VeronicaPan gunderson 1950 M Date Provider Department Center 09/21/2023 120-HILDA HA JARAD [place] [facility] Family History Problem Relation Age of Onset Coronary artery disease Father Stroke Father Family Status - Relation Status Age at Father Level of Service:60451 [place] OFFICE/OUTPATIENT ESTABLISHED MOD MDM [address] [facility] Office Visiton 08-26-2023 Follow-up visit [id number] LilyannaPan gunderson 1950 M Date Provider Department Center 08/26/2023 3848-FABRIZIO [facility] Family History Problem Relation Age of Onset Coronary artery disease Father Stroke Father Family Status - Relation Status Age at Father Level of Service:15615 [place] OFFICE/OUTPATIENT NEW LOW MDM [address] [facility] Patient Letter FTMCon 2022 Patient Letter [facility] (Inserted Image. Prema ble to display) November 30, 2022 [place] [address] GIANFRANCO MARTIN 1950 Dear Gianfranco Martin, Executive [...] Jf Sanches M.D., F.A.C.S. [facility] [address] [place] [address], [place] [address] , OPTION #3 SENT REGULAR/CERTIFIED MAIL Normal [facility] Coding Summary.on 10-27-2022 Coding Summary. CD:[id number] Gh0bWw +PGhlYWQ+VK6BVJDbB87mgTTyr E7zM9GLGHrQJykqSFYOOIoQTbH kgmQmAE3xeMHkQGIt IC8+SC2rPSDrXfklpIKnu8V9jY M4E71eux0jJLjxfFY5AKBgUzQp unfrp6maxFn2EGohDwvcTlSn FYTzuL50ZLR7oF81Bn75iMHcfA Efp7jnzJe7GrBgBYHfVNF9xVfc HAzyl7PhPECmE84jpWHvj2Y4 WCWubKscpGRoUtVgjRG5wT9wAA umrchel6apablnRvu5mo33vFJz k6J2yLZ0S4MkfaT7XPHonYGf OmrjaDJWyI4xmpppe1rqpqudSx FaDTMgWIs5JUk4ZINiuAczIcFm DK19FHL7SKMnheQqE9OgWNQa qEbbAqT4a9E8Vu5LQ2RNNhjyE7 VNTUFSWTwvdGQ+DD74qw99I5Hb KsjvTxg6VPQoOKN9kHC2bJ2y WNItHXsrj4D4dLX6C9FgkuLruk 0yq9yvNNZqDEvvJ18jqDXuo4B2 RSYpuCB7IKLqpZmhVmBjdG26 Oyc+VJFmkWnea7GyAefvj8hih4 eivGw9IbshUXZdroJfcTjqSCV4 t8ErWq3tFAIrdEP0nBQ8kS7k GdDhBcC4ZTueC415GqPsdDIyRk vsR88nM4VwtRZ+GMZrBqh2WEJq qQzdQZ1hY9RvAZMfbemvsALd zHpqSQ2bAFXcnjnwAEHtdY8iKE BhC8a0XqZrLkJ6RYmnZ2CuXBJj mjlfLi32pY2iByFsPvQ9XDar Y6JxxeS4OEFpcOImLOhwLBN2G7 9xo3C2YOVcMPZaMQT4bQH6cR4a bGlnbjogbGVmdDsgdmVydGlj ZOshMFctG720YWCmwKbwAnYcQN luZyBEYXRlOiAgMDMvMDgvMjAy MzwvdGQ+NBShNFO5uRidJYLu vGTbVMhfDl4xzPirfBlrDW1fJW NskynnUEBwgY2nKQTqqIPuqZrh NV2sXYKvjtvgb395WqHeKTO2 PBGujYNlB2WszB3oFdQwLVZtDQ GiO2XxaSUxBAqeS848NStyVnC2 GHLodlEpI5NmWVWqcEflPhY2 p4R9Uc6Md6EpcsohB0ZlfNYaJe NiPmznZLi3P4KzGxbhaKN+PC90 NNNtKA95QYa3YLO5eAgrXHsl MDBoP0QskL7iHqEdJBYlLXItMl c+PHRhYmxlIHdpZHRoPScxMDAl EwTczEzuUM6vKd9gDRUhNNPu iKpkyGCgGeYfl4ppTIKlJWqoVB 0rjTzzI6MenCQ3VZIjy7y0Qb42 H82pK6QneKD+JGMkbQS0xLD0 hK5mGaRuRdR0KJjsD902UuXmvG IpQzisd8byr4selVx7UrN9ZDNv vyCjdAqrTXT8g6SbHh80V86i IHdpZHRoPSIxNSUiIHZhbGlnbj 5cxF9kYf0+LUOvlXH6hQP3zI3e LaTcTqV1HUmlO120OtWdqHWj Boeyh8xys0nrqZg2RoMmCZLlyh ZpnIslGSA3h4UfZl48A2TduVut x5UjTqu2jy07vHUer0Q3lRM5 H2BgTFVvdtzngIPagZttPI9zLH GsxafqLNHbeY4yIJSeG7h6MsKx DfX8FPzyW8HsnoA0BXIfgKNx BCKmfBNFtE3mybtmj7dirkzgOg ZdKUDnJBi5WBv1PCObnMfyNbYi DGR8KjZ0JLC9aVZacL9dhQpq atjciH0uAnj+RGH7yKHpmIXOKW 1lOjwvdGQ+EHKbPGE7dFvbXKbm RIEqrP4jSKMcF2c0TyWzHxM9 QLzhT7SyphY8ITFxtZFqEASaoJ BTpU3pkmlob7jggrupAuKtIOPd OYb9DOp6IMZzaBfkAaUaMOP2 XmY3LCC6gHOjoD0hjDakbmdvyD 9wOyc+GicerObcGUI5PIk2B4Uf Byw2ODSkeDqhZX5znQLaTVrg Gs9xiAjuvTkkXC9jUDJaqysbs6 52XfIwr6xoFJQlrQUmQNwxDSF6 T04ub2E6RKYnUORvBRU9zVI9 lQ5faFpunmfamIXzbHoxkoLlmC oxRWnfRRboS821HNXksZscVfBd WOm4I1GyWou1LACagZjuWA5c lMZjQAffIq8bdFbivAvnCD5wHY Bygtjik299UwBwg2hwTVUsfFMh MIcrTPQ3S20sg6D2QDHsMXMn QBE6aBI8mG8mdAbpkamajPPkdA dvkqCwvNqlQGsdMYknD150BFHt dAnuRpYjeXl5B3FkLyp8JLIs dJxdSL2hoDVbMQwjSg0avEsmfJ skNZ6iCCHcvkurr293SuMrn9gx KDWpwWYcXNkfULG8J91hd0P3 FCOpPPRwLNH8iIE5vR4wcUmibr ogbGVmdDsgdmVydGljYWwtYWxp B013WDQzdOwoGzVfxGmefhPe QWwiCZj1L9NsNhngmSD+PC90YW ToCK55yONgcUEub0zvzGd3JzFl ZFInUFY8eXphHXrzk4SwCGIk V70siRYzm4E1RCVmeKdygPTfQv MymQL6wO5eCEshxttvs1vvddko Nggsm7irik95pR56O04eGXqf JVRyTCNtXGGaHIJmoAkagf7knJ 9wIi8+YIOzfRD0cPN0mO3cBSMc PdA0UFfgE228EhMqbZNlHzyb h2noy3rrkKc1DxJ0AIIjrmLgrE vpINL3s0KfTq82D24bYMhiKPPe TIIjCTVtRCUplSwtyq4gmA9u Ii8+JAYrmAB2qKT1hN4tNuDmDv M4KYqlY540RxQokGMvOmzyP52h D0CfkAD+DWAmOve1YKAgiSlh TQ3ykDAyHJnpRd8oOWX6CzKxCv WzULgvI0DtHAKjovypeurcqHN2 XHYsFPHptQ44Vj9rgKpnPHTk pDPAcM5euuwbx7klgzidDaTyVX CrWWl4FZf7NMEduWcaOwHnBEA7 QzX9VYI9iFOxbO1qvLhqttnx oD0bW1NuBMCrdvrfCj56rP0kMt NsUcV9BIlhFti+UFVMTEFOTywg EolJL8uHLcljxZX+PHRkIHN0 rJgtQYgnEPWkgL0gVMMtC4a7Os VxWiJ3YDixK9ZkQCFseidcCo57 qT6tRsTdKeV9WQhcI7JojzF5 OGBrmAFsBQkeVJD2A95wz7X1IF RyVTPqKDK4pGY5zA3yjUizwjjy bGVmdDsgdmVydGljYWwtYWxp P392HVBodGxdZcB3IgL0QaV2SE I9Z2KeBta3PNJbwOxiMR6lbRMy OYomFy2waXrtzYngIF2eATPf ngjwXQOktS7hLXBssSRcyLwxVF 5rQCBegtaoq733DgDiDBY6SWJc tESiH2MwuK8bMgYxSYNuFUSb K2EcjNMpTDugN611GIxqQiM8BM IzdxXeW9EwTFOboQruHfU9o0X1 Ht56WoEGUWIhnrfzzFB+PHRk IBL2hOldLHtcGYYyeI0bTCImN4 o6PqXwFjL8NWncX3AfVSMbapac Hc94vX1gMoZkQaS4KIzsN2Lq cbU9ZGMnjDMuYJimSWJ1T50on7 L5XNIaDLBpKXB6pXW1mK2ooXzx bjogbGVmdDsgdmVydGljYWwt GHfaO452BXHzmKgyMl1gzUX8G1 UvIrq6MAWwqMlxEQ9mnNXaYZfv Vx1xePjahOvdGK2mYTMritwt ZHIudT9vKFOfxVNyrYjqLV9lQQ Lbdebyb832XbDnALQ1GUViyAKu N9AgsE6wUfTpOHFrTWEsH5Vb pEKsKCldI177HIeiXoN5MROdcv AnA3QjNOJhlMptCgQ2x7U7Dh2V QPJvHRHaoGEpDkM4Y7HtRqpj dHI+ST37ABZwOE38sHUjlWXbk7 yrcRa1WlTbPIPsJVD7lOlhOMcb j2QnZHZaT17dlYZfb4S3JRGv wFudsYLcSmXspIS6iV7lTUbopy mdi0wpkisxAzlii4swnk72uT37 N64mZGaxPGZkUNXkZZOhDZMn cFwmfn6klB0tRn6+ECPugUS1eD Z9aX5zLpIqSoQ2MLukD362NdYa oMJiIaslx6zwb0chkXq9EhYf ECSdvcEoxFznXBQ7s9FnUe25F1 9sIHdpZHRoPSIyMCUiIHZhbGln wg9zxP6wAg5+FS8sp5bjjf52 yG06iVX+EKJzGPX2pRiuBRetRT UzpU1bRXpiGpE9CWVqHeXbwO49 eHJjBQoqQv4mfLrrvKwnZY4l ZLAbijgsu836LeAvf7sxUWIthA YxBEeoIEL3N59ym5T6EACkJCQa TCV9lJP5qT7ocAlwzzyrjFQu rOhkypWanAiyQJkwJGdxQ000OI GiyRnbYeDciDJnD1cjpuZFCR5v OjwvdGQ+EBSiZZZ8fKmaEMtl NZKxnK7gGAVxU7p5WwOqDoC3MZ vsQ7OgqrG4GANglIIqCYRcvVXC mR6tkchjq0yutgwwYzEaCSCy RHj4KKl1AHVbnIviPxXbGET7Uo E9OHG4rTUeaZ8gqXvjgevenH2u Oyc+RklOOjwvdGQ+PHRkIHN0 yYfgTZamTCRelD3gPKQnK3y4Lm GuSsA7WNetJ2EkbxB2SMRoxXQk VFUlqNNZlW6qqpgvu0aorcer WiUfLSIgWJw7MKy1DESsbXdxHc CxYKP2SuS9TYQ1tAQhhO8zxLxb obxmoV1gRul+TVJOOjwvdGQ+ RRDiHBT0uHsnOHsqBGBspN3uHF OkB7h4CsXmBpR7UDxgY1LdlgO3 JPDzuGTeUYIikMNZxW0losni n2vdflwnWaSbZSJlHKl9RMc4NC NyuQtxNyJeROA8QmJ2KOK9rJTf nF9cdGmvnzdsbW9mJeg+UGF5 YUO1PE23WK34Z7JsNudbyEOryQ U+PHRhYmxlIHdpZHRoPScxMDAl TcRrcLmuSR3tPl6qOUEvCUBq bGxh (more content not included)... Normal [facility] Lab Reportson 10-27-2022 Lab Reports [id number]#[id number]:127 Normal [facility] Ambulatory Visit Summaryon 0 10-15-2022 Ambulatory Visit Summary GIANFRANCO MARTIN :1950 Visit Date:10/15/2022 Ambulatory Visit Instructions Your Diagnosis Elevated PSA Benign prostatic hyperplasia (BPH) with post-void dribbling Tests Performed Urnls Dip Stick Auto w/o Microscopy POC 87779 Your Care Team Attending Physician - SELENA [...] with SELENA LEONG, STEFANI Seo When: Where: [address] [place] [address]- Medications What When Instructions Unchanged amlodipine (amLODIPine [...] Urnls Dip Stick Auto w/o Microscopy POC 16531 (10/15/2022) Bilirubin Urine Dipstick - Negative Blood Urine Dipstick - Negative Glucose Urine Dipstick - Negative Ketones Urine Dipstick - Negative Leukocytes Urine Dipstick - Negative Nitrite Urine Dipstick - Negative Protein Urine Dipstick - Negative Specific Thorp Urine Dipstick - 1.010 Urine Appearance Urine [...] of these risk factors: ? Being of -D[place] descent. ? Having a family history of prostate cancer. ? If you are age 55?69, talk with your health care provider about (more content not included)... Normal [facility] Patient Educationon 10-15-19 Patient Education Oncology [...] of these risk factors: ? Being of -Danish descent. ? Having a family history of [...] Are older than age 55. ? Are -Danish. ? Have a father, brother, or uncle [...] R (more content not included)... Normal [facility] Urology Office/Clinic Noteon 10-15-2022 Urology Office/Clinic [...] Contact Information SELENA LEONG, Jf Reis, [address] [place] [address]- Additional Instructions: PSA today - await results [...] Father. Immunizations Vaccine Date Status Comments SARSCoV2 mRNA(nhztlfpqj-xbsa-hwvblz ) vac 03/12/2022 Recorded 2022-06-28: TPV70 SARS-CoV-2 [...] Dipstick: Negativ (more content not included)... Normal [facility] Comment on above: Result Comment: Elec tronically Signed By: Jf SANCHES MD\.br\Date and Time Signed: 10/15/22 11:23 EST\.br\Electronically Co-Signed By: Dori Wynne\.br\Date and Time Co-Signed: 10/15/22 11:19 EST\.br\Electronically Co-Signed By: Dori Wynne\.br\Date and Time Co-Signed: 10/15/22 11:21 EST Creatinine (Bld) [Mass/Vol]O rdered By: Jf Sanches on 07-14-2022 Creatinine [Mass/Vol] 0.8 mg/dL 0.6-1.3 [facility] Comment on above: ER/ESD physician is notified/shown all ISTAT results.Critical values may be confirmed by laboratory testing ifdeemed necessary by ER attending doctor. ISTAT XRay CREon 07-14-2022 Creatinine [Mass/Vol] 0.8 mg/dL Normal 0.6-1.3 [facility] Comment on above: Result Comment: ER/E SD physician is notified/shown all ISTAT results. Critical values may be confirmed by laboratory testing if deemed necessary by ER attending doctor. Performed By: #### I SCRE #### [facility] [address] [place] [address] Point of Care testing , ISTAT GFR ( > 60 Normal [facility] Comment on above: Result Comment: GFR estimated reference range: According to KDOQI guidelines, <60 ml/min/1.73m2 is sufficient to diagnose a patient with chronic kidney disease. PERFORMED BY: [place] [address] PATHOLOGIST SEAT JOINER CHAINSTITCH MADELYN LAIRD M.D. Performed By: #### I SCRE #### [facility] [address] [place] [address] Point of Care testing , ISTAT GFR (Non- Am > 60 Normal [facility] Comment on above: Performed By: #### I SCRE #### [address] Point of Care testing , No Panel InformationOrdered By: Jf Sanches on 07-14-2022 POC Estimated GFR > 60 [facility] Comment on above: GFR estimated refere nce range: According to KDOQI guidelines, <60 ml/min/1.73m2 is sufficient to diagnose a patient with chronic kidney disease. POC Estimated GFR Non- Amer > 60 [facility] Pre-Certification Formon Pre-Certification Form [id number]#[id number]:127 Normal [facility] Lab Reportson 07-05-2022 Lab Reports [id number]#[id number]:127 Normal [facility] Physician Referralon 022 Physician Referral [id number]#[id number]:127 Normal [facility] Ambulatory Visit Summaryon 1 08-28-2021 Ambulatory [...] Urology [address], [place] [id number] Medications What When Instructions Unchanged amlodipine (amLODIPine [...] prostate gland (more content not included)... Normal [facility] Historical Records Officeon 06-28-2022 Historical Records Office [id number]#[id number]:127 Normal [facility] Patient Educationon 06-28-20 22 Patient Education [...] Follow these instructions at home: ? Take jnlb-lio-hricnpw and prescription medicines only as told by [...] You d (more content not included)... Normal [facility] PSA, FREE AND TOTAL RATIOon 05-21-2022 % Free PSA 7.1 % Normal [facility] Comment on above: Result Comment: The [...] men. Performed By: #### P SAFREE #### [facility] [address] [place] [address] Dr. Zaira Benoit Prostate specific Ag [Mass/Vol] 6.8 ng/mL Critically high 0.0-4.0 [facility] Comment on above: Result Comment: Bryant PERRYIA methodology. . According to the [place] [employer], Serum PSA should decrease and [...] disease. Performed By: #### P SAFREE #### [facility] [address] [place] [address] Dr. Zaira Benoit PSA, Free 0.48 ng/mL Normal N/A [facility] Comment on above: Result Comment: Bryant woodruff ECLJUANY methodology. Performed By: #### P SAFREE #### [facility] [address] [place] [address] Dr. Zaira Benoit INSULINon 05-13-2022 Insulin 7.8 uIU/mL Normal 2.6-24.9 [facility] Comment on above: Performed By: #### I NSULIN #### [facility] [address] [place] [address] Dr. Zaira Benoit CBC AUTO DIFFon 05-12-2022 BASO # 0.1 103/ul Normal 0.0-0.1 [facility] Comment on above: Performed By: #### C BC #### [facility] [address] [place] [address] Dr. Zaira Benoit Basophils/100 WBC (Bld) 0.9 % Normal 0.2-2.0 [facility] Comment on above: Performed By: #### C BC #### [facility] [address] [place] [address] Dr. Zaira Benoit EO # 0.2 103/ul Normal 0.0-0.7 [facility] Comment on above: Performed By: #### C BC #### [facility] [address] [place] [address] Dr. Zaira Benoit Eosinophils/100 WBC (Bld) 2.1 % Normal 0.9-7.0 [facility] Comment on above: Performed By: #### C BC #### [facility] [address] [place] [address] Dr. Zaira Benoit Erythrocyte distribution width (RBC) [Ratio] 13.2 % Normal 11.0-15.0 [facility] Comment on above: Performed By: #### C BC #### [facility] [address] [place] [address] Dr. Zaira Benoit Hematocrit (Bld) [Volume fraction] 46.6 % Normal 42.0-54.0 [facility] Comment on above: Performed By: #### C BC #### [facility] [address] [place] [address] Dr. Zaira Benoit Hemoglobin (Bld) [Mass/Vol] 15.5 g/dL Normal 14.0-18.0 [facility] Comment on above: Performed By: #### C BC #### [facility] [address] [place] [address] Dr. Zaira Benoit IG # 0.02 10e3/ul Normal 0.00-0.03 [facility] Comment on above: Performed By: #### C BC #### [facility] [address] [place] [address] Dr. Zaira Benoit IG % 0.3 % Normal 0.0-0.5 [facility] Comment on above: Performed By: #### C BC #### [facility] [address] [place] [address] Dr. Zaira Benoit LYMPH # 2.6 103/ul Normal 1.2-3.8 [facility] Comment on above: Performed By: #### C BC #### [facility] [address] [place] [address] Dr. Zaira Benoit Lymphocytes/100 WBC (Bld) 36.9 % Normal 20.5-60.0 [facility] Comment on above: Performed By: #### C BC #### [facility] [address] [place] [address] Dr. Zaira Benoit MANUAL DIFF REQ NO Normal [facility] Comment on above: Performed By: #### C BC #### [facility] [address] [place] [address] Dr. Zaira Benoit MCH (RBC) [Entitic mass] 33.2 pg Normal 25.9-34.0 [facility] Comment on above: Performed By: #### C BC #### [facility] [address] [place] [address] Dr. Zaira Benoit MCHC (RBC) [Mass/Vol] 33.3 g/dL Normal 29.9-35.2 [facility] Comment on above: Performed By: #### C BC #### [facility] [address] [place] [address] Dr. Zaira Benoit MCV (RBC) [Entitic vol] 99.8 fL Critically high 80.0-94.0 [facility] Comment on above: Performed By: #### C BC #### [facility] [address] [place] [address] Dr. Zaira Benoit MONO # 0.6 103/ul Normal 0.3-0.8 [facility] Comment on above: Performed By: #### C BC #### [facility] [address] [place] [address] Dr. Zaira Benoit Monocytes/100 WBC (Bld) 9.1 % Normal 1.7-12.0 [facility] Comment on above: Performed By: #### C BC #### [facility] [address] [place] [address] Dr. Zaira Benoit NEUT # 3.6 103/ul Normal 1.4-6.5 [facility] Comment on above: Performed By: #### C BC #### [facility] [address] [place] [address] Dr. Zaira Benoit Neutrophils/100 WBC (Bld) 50.7 % Normal 43.0-75.0 [facility] Comment on above: Performed By: #### C BC #### [facility] [address] [address] [address] Zaira Benoit Platelet mean volume (Bld) [Entitic vol] 9.3 fL Critically low 9.5-13.5 [facility] Comment on above: Performed By: #### C BC #### [facility] [address] [address] [address] Zaira Benoit PLT 191 103/ul Normal 150-450 [facility] Comment on above: Performed By: #### C BC #### [facility] [address] [address] [address] Zaira Benoit RBC 4.67 106/ul Critically low 4.70-6.10 [facility] Comment on above: Performed By: #### C BC #### [facility] [address] [place] [address] Dr. Zaira Benoit WBC 7.0 103/ul Normal 4.0-11.0 [facility] Comment on above: Performed By: #### C BC #### [facility] [address] [place] [address] Dr. Zaira Benoit GLYCOHEMOGLOBIN A1Con 2021 ADA RECOMMENDATION SEE BELOW Normal [facility] Comment on above: Result Comment: ADA RECOMMENDED LIMIT 4.0 - 6.0 ADA THERAPEUTIC TARGET < 7.0 ACTION SUGGESTED > 7.0 Performed By: #### A 1C #### [facility] [address] [address] [address] Zaira Benoit Glucose [Mass/Vol] 151 mg/dL Normal [facility] Comment on above: Performed By: #### A 1C #### [facility] [address] [address] [address] Zaira Benoit HbA1c (Bld) [Mass fraction] 6.9 % Critically high 4.5-6.2 [facility] Comment on above: Performed By: #### A 1C #### [facility] [address] [place] [address] Dr. Zaira Benoit LIPID PROFILEon 05-12-2022 CHOL-HDL RATIO NORM SEE BELOW Normal [facility] Comment on above: Result Comment: 3.3 - 4.4 LOW RISK 4.4 - 7.1 AVERAGE RISK 7.1 - 11.0 MODERATE RISK >11.0 HIGH RISK Performed By: #### L IPID, URIC, CMP #### [facility] [address] [address] [address] Zaira Benoit Cholesterol [Mass/Vol] 132 mg/dL Normal <=200 [facility] Comment on above: Performed By: #### L IPID, URIC, CMP #### [facility] [address] [address] [address] Zaira Benoit Cholesterol in HDL [Mass/Vol] 53 mg/dL Normal 40-60 [facility] Comment on above: Performed By: #### L IPID, URIC, CMP #### [facility] [address] [address] [address] Zaira Benoit Cholesterol in LDL [Mass/Vol] 59.6 mg/dL Normal [facility] Comment on above: Performed By: #### L IPID, URIC, CMP #### [facility] [facility] [address] [place] [address] Dr. Zaira Benoit Cholesterol.total/Ch olesterol in HDL [Mass ratio] 2.5 {ratio} Normal [facility] Comment on above: Performed By: #### L IPID, URIC, CMP #### [facility] [address] [place] [address] Dr. Zaira Bneoit HDL NORMAL > or = 60 mg/dl - LO W CARDIOVASCULAR RISK <40 mg/dl - HIGH CARDIOVASCULAR RISK Normal [facility] Comment on above: Performed By: #### L IPID, URIC, CMP #### [facility] [address] [address] [address] Zaira Benoit LDL CALC NORMAL SEE BELOW Normal [facility] Comment on above: Result Comment: <100 mg/dl OPTIMAL 100 - 129 mg/dl NEAR OR ABOVE OPTIMAL 130 - 159 mg/dl BORDERLINE HIGH 160 - 189 mg/dl HIGH >190 mg/dl VERY HIGH Performed By: #### L IPID, URIC, CMP #### [facility] [address] [address] [address] Zaira Beonit Triglyceride [Mass/Vol] 97 mg/dL Normal <=150 [facility] Comment on above: Performed By: #### L IPID, URIC, CMP #### [facility] [address] [place] [address] Dr. Zaira Benoit VLDL CALC 19.4 mg/dL Normal [facility] Comment on above: Performed By: #### L IPID, URIC, CMP #### [facility] [address] [place] [address] Dr. Zaira Benoit PROF 14(COMP METB)on 022 Albumin [Mass/Vol] 3.9 g/dL Normal 3.4-5.0 [facility] Comment on above: Performed By: #### L IPID, URIC, CMP #### [facility] [address] [place] [address] Dr. Zaira Benoit Albumin/Globulin [Mass ratio] 1.1 {ratio} Normal [facility] Comment on above: Performed By: #### L IPID, URIC, CMP #### [facility] [address] [place] [address] Dr. Zaira Benoit ALP [Catalytic activity/Vol] 92 U/L Normal 46-116 [facility] Comment on above: Performed By: #### L IPID, URIC, CMP #### [facility] [address] [place] [address] Dr. Zaira Benoit ALT [Catalytic activity/Vol] 31 U/L Normal 16-63 [facility] Comment on above: Performed By: #### L IPID, URIC, CMP #### [facility] [address] [place] [address] Dr. Zaira Benoit Anion gap [Moles/Vol] 12.2 mmol/L Normal [facility] Comment on above: Performed By: #### L IPID, URIC, CMP #### [facility] [address] [place] [address] Dr. Zaira Benoit AST [Catalytic activity/Vol] 20 U/L Normal 15-37 [facility] Comment on above: Performed By: #### L IPID, URIC, CMP #### [facility] [address] [place] [address] Dr. Zaira Benoit Bilirubin [Mass/Vol] 0.4 mg/dL Normal 0.2-1.0 [facility] Comment on above: Performed By: #### L IPID, URIC, CMP #### [facility] [address] [place] [address] Dr. Zaira Benoit Calcium [Mass/Vol] 8.8 mg/dL Normal 8.5-10.1 [facility] Comment on above: Performed By: #### L IPID, URIC, CMP #### [facility] [address] [address] [address] Zaira Benoit Chloride [Moles/Vol] 101 mmol/L Normal 98-107 [facility] Comment on above: Performed By: #### L IPID, URIC, CMP #### [facility] [address] [place] [address] Dr. Zaira Benoit CO2 [Moles/Vol] 29.3 mmol/L Normal 21.0-32.0 [facility] Comment on above: Performed By: #### L IPID, URIC, CMP #### [facility] [address] [place] [address] Dr. Zaira Benoit Creatinine [Mass/Vol] 0.88 mg/dL Normal 0.70-1.30 [facility] Comment on above: Performed By: #### L IPID, URIC, CMP #### [facility] [address] [address] [address] Zaira Benoit EGFR-AF LITHUANIAN >60 Normal >=60 [facility] Comment on above: Performed By: #### L IPID, URIC, CMP #### [facility] [address] [place] [address] Dr. Zaira Benoit EGFR-NON AF LITHUANIAN >60 Normal >=60 [facility] Comment on above: Performed By: #### L IPID, URIC, CMP #### [facility] [address] [address] [address] Zaira Benoit Globulin (S) [Mass/Vol] 3.6 g/dL Normal [facility] Comment on above: Performed By: #### L IPID, URIC, CMP #### [facility] [address] [address] [address] Zaira Benoit Glucose [Mass/Vol] 128 mg/dL Critically high 74-106 [facility] Comment on above: Performed By: #### L IPID, URIC, CMP #### [facility] [address] [place] [address] Dr. Zaira Benoit Potassium [Moles/Vol] 4.5 mmol/L Normal 3.5-5.1 [facility] Comment on above: Performed By: #### L IPID, URIC, CMP #### [facility] [address] [place] [address] Dr. Zaira Benoit Protein [Mass/Vol] 7.5 g/dL Normal 6.4-8.2 [facility] Comment on above: Performed By: #### L IPID, URIC, CMP #### [facility] [address] [place] [address] Dr. Zaira Benoit Sodium [Moles/Vol] 138 mmol/L Normal 136-145 [facility] Comment on above: Performed By: #### L IPID, URIC, CMP #### [facility] [address] [place] [address] Dr. Zaira Benoit Urea nitrogen [Mass/Vol] 4.0 mg/dL Critically low 7.0-18.0 [facility] Comment on above: Performed By: #### L IPID, URIC, CMP #### [facility] [address] [place] [address] Dr. Zaira Benoit Urea nitrogen/Creatinine [Mass ratio] 4.5 mg/mg Normal [facility] Comment on above: Performed By: #### L IPID, URIC, CMP #### [facility] [address] [place] [address] Dr. Zaira Benoit URIC ACID SERUMon 05-12-2022 Urate [Mass/Vol] 7.5 mg/dL Critically high 3.5-7.2 [facility] Comment on above: Performed By: #### L IPID, URIC, CMP #### [facility] [address] [place] [address] Dr. Zaira Benoit No Panel Information [facility] Vital Signs Date Time Vital Sign Value Performing Clinician Sohail lovett 10-24-2023 14:53-0500 Body weight 97.52 kg Ale Hickman MD Work Phone: [facility] 10-24-2023 14:53-0500 Diastolic blood pressure 66 mm[Hg] Ale Hickman MD Work Phone: [facility] 10-24-2023 14:53-0500 Heart rate 79 /min Ale Hickman MD Work Phone: [facility] 10-24-2023 14:53-0500 Systolic blood pressure 157 mm[Hg] Ale Hickman MD Work Phone: [facility] 10-15-2022 10:45-0500 Diastolic blood pressure 79 mm[Hg] Jf SANCHES [facility] 10-15-2022 10:45-0500 Heart rate 86 /min Jf SANCHES [facility] 10-15-2022 10:45-0500 Systolic blood pressure 128 mm[Hg] Jf SANCHES [facility] 06-28-2022 13:37-0500 Blood Pressure Location Jf SANCHES [facility] 06-28-2022 13:37-0500 Diastolic blood pressure 89 mm[Hg] Jf SANCHES [facility] 06-28-2022 13:37-0500 Heart rate 74 /min Jf SANCHES [facility] 06-28-2022 13:37-0500 Respiratory rate 16 /min Jf SANCHES [facility] 06-28-2022 13:37-0500 Systolic blood pressure 140 mm[Hg] Jf SANCHES [facility] Encounters Encounter Date Encounter Type Care Provider Facility Start: 03-06-2024 End: 03-06-[address] Not Available Start: 02-09-2024 End: 02-09-2024 ambulatory KADY CROW Not Available Start: 02-09-2024 End: 02-09-[address] [facility] Start: 01-26-2024 End: 01-26-2024 ambulatory KAIA Huitron JIGNESH Not Available Start: 12-27-2023 End: 12-27-2023 ambulatory RAUL SUN Facility:[facility] Start: 12-27-2023 End: 12-27-2023 Patient encounter procedure Marquis Weaver OD Work Phone: Ophthalmology Comment on above: Retinal hemorrhage, left eye (Primary Dx); History of retinal detachment; Epiretinal membrane (ERM) of left eye; Nuclear senile cataract of right eye; Pseudophakia, left eye; History of YAG laser capsulotomy of lens, left Start: 12-26-2023 End: 12-27-2023 ambulatory Trevor Forte MD Facility:[facility] Start: 12-08-2023 End: 12-08-2023 ambulatory RAUL SUN Facility:[facility] Start: 12-08-2023 End: 12-08-2023 Patient encounter procedure Ale Hickman MD Work Phone: Urology Comment on above: Elevated prostate sp ecific antigen (PSA) (Primary Dx); APPOINTMENT CANCELLED Start: 12-08-2023 End: 12-08-2023 Telemedicine consultation with patient Ale Hickman MD Work Phone: [facility] Start: 12-08-2023 Telephone encounter Ale Hickman MD Work Phone: Urology Start: 11-21-2023 End: 11-22-2023 ambulatory Trevor Forte MD Facility:[facility] Start: 11-17-2023 End: 11-17-2023 ambulatory RAUL SUN Facility:[facility] Start: 10-24-2023 End: 10-24-2023 ambulatory RAUL SUN Facility:[facility] Start: 10-24-2023 End: 10-24-2023 Patient encounter procedure Ale Hickman MD Work Phone: Urology Comment on above: Elevated prostate sp ecific antigen (PSA) (Primary Dx); BPH without obstruction/lower urinary tract symptoms Start: 10-21-2023 End: 10-21-2023 ambulatory [facility] Start: 09-21-2023 End: 09-21-2023 ambulatory [facility] Start: 08-26-2023 End: 08-26-2023 ambulatory [place] [facility] Start: 06-27-2023 End: 06-27-2023 ambulatory RAUL SUN Facility:[facility] Start: 06-06-2023 End: 06-06-2023 ambulatory RAUL SUN Facility:[facility] Start: 06-06-2023 End: 06-06-2023 Patient encounter procedure Marquis Weaver OD Work Phone: Ophthalmology Comment on above: Type 2 diabetes wil itus without retinopathy (HCC) (Primary Dx); Retinal hemorrhage, left eye; Nuclear sclerotic cataract of right eye; Pseudophakia, left eye; History of YAG laser capsulotomy of lens, left; History of retinal detachment Start: 03-02-2023 ambulatory KRISSY GRAY Facility :[facility] Start: 03-02-2023 End: 03-02-2023 Patient encounter procedure Krissy Gray MD Work Phone: Ophthalmology Comment on above: OPENED IN ERROR (Jocelyne reji Dx) Start: 10-26-2022 End: 10-27-[address] JF SANCHES . Facility: Start: 10-15-2022 End: 10-16-2022 ambulatory Jf SANCHES Facility:[facility] Start: 10-15-2022 End: 10-16-2022 ambulatory Jf SANCHES Facility:[facility] Start: 10-15-2022 End: 10-15-2022 Lab Drop off Jf SANCHES [facility] Start: 10-15-2022 End: 10-15-2022 Patient encounter procedure fJ SANCHES [facility] Start: 07-14-2022 End: 07-14-2022 ambulatory Daina Judge Facility:[facility] Start: 07-14-2022 End: 07-14-2022 ambulatory [employer] Daina Judge Work Phone: [facility] Work Phone: Start: 07-14-2022 End: 07-14-2022 Patient encounter procedure [employer] Daina Judge Work Phone: [facility] Start: 06-28-2022 End: 06-29-2022 ambulatory Jf SANCHES Facility: [facility] Start: 06-28-2022 End: 06-28-2022 Patient encounter procedure Jf SANCHES [facility] Start: 06-16-2022 End: 06-16-2022 Patient encounter procedure [...] above: Performed By: #### P SAD #### [facility] [address] [place] [address] Dr. Zaira Benoit Start: 06-16-2022 Post-cataract laser surgery Krissy Gray MD Work Phone: Start: 05-12-[address] ZOLTAN SANCHES . Comment on above: Performed By: #### P SASC #### [facility] [address] [place] [address] Dr. Zaira Benoit Start: 02-17-2022 Computerized ophthal [...] PM EDT Office Visit [facility] [address] [place] [address] Marquis Weaver, OD [address] [place] [address] Annual Full Eye Exam with Mac OCT [facility] Comment on above: Annual Full Eye Exam with Mac OCT Start: 12-26-2024 Glaucoma screening Dilated Retinal E xam [facility] Start: 06-27-2024 Glaucoma screening Dilated Retinal E xam [facility] Start: 06-06-2024 Hepatitis C antibody , confirmatory test Dilated Retinal Exam [facility] Start: 04-22-2024 Influenza vaccination Influenz a Vaccine (Season Ended) [facility] Start: 12-27-2023 End: 12-27-2023 Patient encounter procedure 12/27/2023 1:00 PM EDT Office Visit [facility] [address] [place] [address] Marquis Weaver, OD [address] [place] [address] RTC 6 months Dilate and oct [facility] Comment on above: RTC 6 months Dilate and oct [facility] Start: 11-24-2023 End: 02-23-2024 Prostate specific Ag [Mass/volume] in Serum or Plasma PSA/PROSTSPECAG DIAG Lab Routine Elevated prostate specific antigen (PSA) BPH without obstruction/lower urinary tract symptoms Expected: 11/24/2023 (Approximate), Expires: 02/23/2024 [facility] Work Phone: Comment on above: Expected: 11/24/2023 (Approximate), Expires: 02/23/2024 Start: 08-22-2023 Advance Directive Discussion Advance Directive Discussion [facility] Start: 08-22-2023 Behavioral Health Screening Behavioral Health Screening [facility] Start: 08-22-2023 Depression Assessment Depression Ass essment [facility] Start: 06-16-2023 Hepatitis C antibody , confirmatory test DILATED RETINAL EXAM [facility] Start: 04-22-2023 Covid-19 Vaccine () Covid-19 Vaccine ( season) [facility] Start: 04-22-2023 Influenza vaccination C [facility] Start: 03-01-2023 Hepatitis C antibody , confirmatory test DILATED RETINAL EXAM [facility] Start: 02-17-2023 Hepatitis C antibody , confirmatory test DILATED RETINAL EXAM [facility] Start: 12-11-2022 COVID-19 VACCINE (5 - Pfizer series) COVID-19 VACCINE (5 - Pfizer series) [facility] Start: 08-22-2022 ADVANCE DIRECTIVE DISCUSSION ADVANCE DIRECTIVE DISCUSSION [facility] Start: 08-22-2022 DEPRESSION ASSESSMENT DEPRESSION ASS ESSMENT [facility] Start: 05-07-2022 COVID-19 VACCINE (4 - Booster for Pfizer series) COVID-19 VACCINE (4 - Booster for Pfizer series) [facility] Start: 04-22-[address] [facility] Start: 08-22-2021 ADVANCE DIRECTIVE DISCUSSION ADVANCE DIRECTIVE DISCUSSION [facility] Start: 08-22-2021 DEPRESSION ASSESSMENT DEPRESSION ASS ESSMENT [facility] Start: 04-16-2021 COVID-19 VACCINE (3 - Booster for Pfizer series) COVID-19 VACCINE (3 - Booster for Pfizer series) [facility] Start: 07-25-2020 COLORECTAL CANCER SCREENING COLORECTAL CANCER SCREENING [facility] Start: 07-25-2020 FECAL OCCULT BLOOD FECAL OCCULT BLOO D [facility] Start: 07-25-2020 Hepatitis B screening URINE ALBUMIN:CREATININE RATIO [facility] Start: 07-25-2020 Hepatitis B surface antibody level LDL CHOLESTEROL [facility] Start: 07-25-2020 Screening for malign ant neoplasm of colon [facility] Start: 01-24-2020 Hemoglobin A1c measurement HbA1C [facility] Start: 01-24-2020 Hemoglobin A1c/Hemoglobin.total in Blood HBA1C [facility] Start: 2009 Hepatitis B Vaccine (1 of 3 - Risk 3-dose series) Hepatitis B Vaccine (1 of 3 - Risk 3-dose series) [facility] Start: 2009 RSV Vaccine (1 - 1-d ose 60+ series) RSV Vaccine (1 - 1-dose 60+ series) [facility] Start: 11-27-1999 SHINGRIX VACCINE (1 of 2) SHINGRIX VACCINE (1 of 2) [facility] Start: 1994 COLOGUARD (FIT-DNA) COLOGUARD (FIT-D NA) [facility] Start: 1994 Colonoscopy COLONOSCOPY [facility] Start: [address] COLONOGRAPHY [facility] Start: 1994 Screening for malign ant neoplasm of colon [facility] Start: 1994 SIGMOIDOSCOPY SIGMOIDOSCOPY [facility] Start: 1968 Urine microalbumin profile [facility] Start: 11-27-1967 ANNUAL PCP TEAM VENEER PULLER GERSON DISEASE VISIT ANNUAL PCP TEAM CHRONIC DISEASE VISIT [facility] Start: 11-27-1967 HEPATITIS C SCREENING HEPATITIS C [facility] Start: 11-27-1967 Hepatitis C screening Hepatitis C [facility] Start: 1961 Adult depression screening assessment DEPRESSION SCREENING [facility] Start: 11-27-1959 3 comp foot exam completed DIABETIC FOOT EXAM [facility] Start: 11-27-1959 Diabetic foot examination Diabetic Foot Exam [facility] Start: 11-27-1955 Pneumococcal Vaccine : 65+ (1 - PCV) Pneumococcal Vaccine: 65+ (1 - PCV) [facility] Start: 11-27-1955 Pneumococcal Vaccine : 65+ (1 of 2 - PCV) Pneumococcal Vaccine: 65+ (1 of 2 - PCV) [facility] Start: 11-27-1955 PNEUMOCOCCAL: 65+ (1 - PCV) PNEUMOCOCCAL: 65+ (1 - PCV) [facility] Start: 1949 ABDOMINAL AORTIC ANEURYSM SCREENING ABDOMINAL AORTIC ANEURYSM SCREENING [facility] Start: 1950 Abdominal aortic aneurysm screening Abdominal Aortic Aneurysm Screening [facility] Immunizations Immunization Date Immunization Notes Care Provider Rosalind alvares 03-12-2022 SARS-CoV-2 mRNA (ufnnmzibhdh-wqlq-mbemr se) vaccine Jf SANCHES [facility] Comment on above: Result Comment: 2021: [id number] 11-14-2020 COVID-19 vaccine, ag e 12+ yr (PFIZER-BIONTECH - PURPLE TOP) Krissy Gray MD Work Phone: [facility] Comment on above: Result Comment: 2021: [id number] 10-24-2020 COVID-19 vaccine, ag e 12+ yr (PFIZER-BIONTECH - PURPLE TOP) Krissy Gray MD Work Phone: [facility] Comment on above: Result Comment: 2021: [id number] Payers Date Payer Category Payer Self-pay 2017 Unknown ANTHEM BLUE CROS S AND BLUE SHIELD ANTHEM MEDIBLUE HMO [id number] 2017-Present [phone] [address] [place] [address] O [id number] 2017 Unknown [id number] 1959 Medicare [id number] 1949 Unknown [id number] 1949 Unknown [id number] 1949 Unknown [id number] 1949 Unknown [id number] 1949 Unknown [id number] 1949 Unknown [id number] 1949 Unknown [id number] 1949 Unknown [id number] 1949 Unknown [id number] 1949 Unknown [id number] 1949 Unknown [id number] Medicare Medicare [id number] Unknown [id number] Social History Date Type Detail Facility Start: 11-03-2016 End: 06-16-2022 Tobacco smoking status NHIS Smokes tobacco daily [facility] History of tobacco use Cigarette Smoker C [facility] Start: 11-03-2016 End: 10-24-2023 Cigarettes smoked current (pack per day) - Reported 1 [facility] Start: 11-03-2016 End: 06-16-2022 Tobacco use and exposure Smokeless tobacco non-user [facility] Start: 02-17-2022 End: 12-27-2023 Alcohol intake Current drinker of alcohol (finding) [facility] Start: 11-20-2018 History SDOH Alcohol Comment per day [facility] Start: 1950 Sex Assigned At Not on file C [facility] Start: 06-28-2022 End: 10-15-2022 Tobacco smoking status Heavy tobacco smoker (finding) [facility] Start: 06-16-2022 End: 10-24-2023 Sex Assigned At Male [facility] Start: 1950 Sex Assigned At Male F [facility] National Score (1-10 0), lower number is lower risk 87 [facility] Medical Equipment Procedure Code Equipment Code Equipment Origin al Text Equipment Identifier Dates Lens Acrysof Iq +19.5 Diopter Natural Stableforce 0 D Biconvex 118.7 - [id number] Start: 02-07-2017 Functional Status Date Assessment Result Facility 10-15-2022 Functional Status N/A [facility] 06-28-2022 Functional Status N/A [facility] Clinical Notes 02-17-2022 to 02-09-2024 Marquis Weaver, JOEL - 12/27/2023 1:40 PM EDTTelephone Encounter - Ale Hickman MD - 12/13/2023 5:40 PM EDTTelephone Encounter - Ale Hickman MD - 12/13/2023 5:40 PM EDTPatient Instructions Note Date & Type Note Facility 02-09-2024 Note Greatly improved wit h increased dose of lasix. Trace edema noted today Renal function stable [facility] 02-09-2024 Note Hypertension is unch anged- stable well controlled Continue current treatment regimen. Dietary sodium restriction. Continue current medications. Blood pressure will be reassessed at the next regular appointment. [facility] 02-09-2024 Note Recommended smoking cessation after 5 min discussion and pt declined [facility] 02-09-2024 Note Patient here for 3 [...] All other systems reviewed and are negative. [facility] 02-09-2024 Note UTP CARDIOLOGY PROGR ESS [...] noted today Renal function stable RTC 6months [facility] 12-27-2023 Note HNO ID: [id number] Author: MARQUIS WEAVER OD Service: ? Author Type: FLORIST HELPER Type: Progress Notes Filed: 12/27/2023 13:45 Note [...] Stable Monitor December 27, 2023 1:40 PM [facility] 12-27-2023 Note Date of Procedure 12/27/2023. [...] 2023 1:40 PM documented in this encounter [facility] 12-13-2023 Telephone encounter Note Please call again and update me Please notify patient that his PSA is rising from 9 to 10.6 He needs prostate bx Can be done in office under local anesthesia or in ASC under MAC ( [place] [facility]) He can come to pick up operator flyer on prostate bx To schedule office visit to discuss prostate bx if he wishes Ale Hickman MD [facility] Work Phone: 12-13-2023 Miscellaneous Notes Please call again and update me Please notify patient that his PSA is rising from 9 to 10.6 He needs prostate bx Can be done in office under local anesthesia or in ASC under MAC ( [place] [facility]) He can come to pick up operator flyer on prostate bx To schedule office visit to discuss prostate bx if he wishes Ale Hickman MD documented in this encounter [facility] 12-08-2023 Miscellaneous Notes Phone visit unsuccessful and had only VOICE MAIL X 2 I DID NOT LEAVE A MESSAGE Please notify patient that his PSA is rising from 9 to 10.6 He needs prostate bx Can be done in office under local anesthesia or in ASC under MAC ( [place] [facility]) He can come to pick up operator flyer on prostate bx To update me Ale Hickman MD documented in this encounter [facility] 12-08-2023 Note HNO ID: [id number] Author: ?, ?, ? Service: ? Author Type: ? Type: Progress Notes Filed: 12/08/2023 14:51 Note Text: 72 year old male with nuclear sclerotic senile, ERM, pseudophakia here today for elevated PSA. PSA PSA PSA, PERCENT FREE Latest Ref Rng <2.60 ng/mL % 07/25/2019 5.33 (H) 6 5.34 (H) 11/17/2023 10.58 (H) Attempted to call patient at 2:41. No answer. [facility] 12-08-2023 History of Present illness Narrative 72 year old male with nuclear sclerotic senile, ERM, pseudophakia here today for elevated PSA. PSA PSA PSA, PERCENT FREE Latest Ref Rng <2.60 ng/mL % 07/25/2019 5.33 (H) 6 5.34 (H) 11/17/2023 10.58 (H) Attempted to call patient at 2:41. No answer. documented in this encounter [facility] 10-24-2023 Note HNO ID: [id number] Author: ?, ?, ? Service: ? Author Type: ? Type: Progress Notes Filed: 10/24/2023 15:09 Note Text: Gianfranco Martin [address] [place] [address] 72 year old male with nuclear sclerotic [...] 2007 Retinal detachment, left eye, repaired in [place], [place] PAST SURGICAL HISTORY OF hernia sx, [...] nontender, w/o nodules. Good anal sphincter tone. [facility] SYMPTOMS SCORE. Date 10/24/2023 1. [...] the services describe (more content not included)... [facility] 10-24-2023 Instructions Raven Babcock - 10/24/2023 3:05 PM EST -PSA in 4 weeks at [facility] lab -Schedule telephone visit in 5 weeks to discuss PSA blood test documented in this encounter [facility] 10-24-2023 History of Present illness [place] [address] 72 year old male with nuclear sclerotic [...] 2007 Retinal detachment, left eye, repaired in [place], [place] PAST SURGICAL HISTORY OF hernia sx, [...] nontender, w/o nodules. Good anal sphincter tone. [facility] SYMPTOMS SCORE. Date 10/24/2023 1. [...] Ale Hickman M.D. documented in this encounter [facility] 10-21-2023 Note PCP increased lasix to 40 mg daily, and I started aldactone at last visit. Renal function remains normal [facility] 10-21-2023 Note Patient is unsure of his medications, why he takes each med and sometimes not sure if he is taking them once or twice a day [facility] 10-21-2023 Note Hypertension is stil l elevated and leg swelling pt states is unchanged Resume norvasc 5 mg daily, continue atenolol, losartan bid, aldactone and lasix [facility] 10-21-2023 Note Patient here for 1 [...] All other systems reviewed and are negative. [facility] 10-21-2023 Note [facility] CARDIOLOGY PROGR ESS [...] reason for each medication that he takes. [facility] 09-21-2023 Note Start aldactone and continue lasix 40 mg daily Repeat bmp [address] [facility] 09-21-2023 Note Hypertension is unco ntrolled, and with leg swelling/edema asked pt to stop norvasc and start aldactone. Repeat labs in 1 week and to notify office for any concerns/ side effects- muscle cramps, tenderness. Pt does not check b/p at home [facility] 09-21-2023 Note Recommended smoking cessation- pt is not agreeable at this time [facility] 09-21-2023 Note Reports WILLAMS, noted w [...] week to check renal function and electrolytes. [facility] 09-21-2023 Note [facility]TP CARDIOLOGY PROGR ESS [...] and he may proceed with physical therapy. [facility] 09-21-2023 Note Patient here for car [...] All other systems reviewed and are negative. [facility] 08-26-2023 Note Cardiology Clinic No te [...] time -Optimize med (more content not included)... [facility] 08-26-2023 Note New patient here to establish care. Ref from Daina Judge CNP for hypertension. She ordered stress test recently but he was unable to complete it due to inability to lie flat. He smokes 1.5 PPD and drinks about 5 beers daily. Denies chest pain, palpitations, and lightheadedness. Says his LE are always taut and swollen. [facility] 06-27-2023 Note HNO ID: [id number] Author: Kenyon Angel OD Service: ? Author Type: FLORIST HELPER Type: Progress Notes Filed: 06/27/2023 1:37 PM [...] Angel, OD June 27, 2023 1:37 PM [facility] 06-06-2023 Note HNO ID: [id number] Author: Marquis Weaver OD Service: ? Author Type: FLORIST HELPER Type: Progress Notes Filed: 06/06/2023 2:29 PM [...] Weaver, OD June 06, 2023 2:22 PM [facility] 06-06-2023 History of Present illness Narrative [...] 2023 2:22 PM documented in this encounter [facility] 10-15-2022 Hospital Discharge instructions Patient Education 10/15/2022 [...] one of these risk factors: ?Being of -[place] descent. ?Having a family history of prostate [...] you: Are older than age 55. Are -Danish. Have a father, brother, or uncle who [...] 05/19/2018 Document Revised: 07/21/2018 Document Reviewed: 05/19/2018 [employer] Patient Education 2019 Criers Podium. Follow Up Care 10/05/2022 09:16:20 With:SELENA LEONG, Jf Reis, URL Address: [address] [place] [address] [place] [address]- When: Unknown [facility] [place] 06-28-2022 Note Chief Complaint Referral-Elevated PSA [...] [facility] [address], [place] [address] [phone] Additional Instructions: pt will f/u based on [...] Father. Immunizations Vaccine Date Status Comments SARSCoV2 mRNA(ymmmxczen-szrf-hxizri) vac 03/12/2022 Recorded 2022-06-28: TPV70 SARS-CoV-2 (COVID-19) mRNA BNT-162b2 vax 11/14/2020 Recorded 2022-06-28: TPV70 SARS-CoV-2 (COVID-19) mRNA BNT-162b2 vax 10/24/2020 Recorded 2022-06-28: TPV70 Lab Results Test Name Test Result Date/Time PSA, External 6.8 ng/mL 05/20/2022 08:26 EDT PSA, External 8.41 ng/mL 05/12/2022 08:25 EDT Diagnostic Results Test (more content not included)... [facility] Comment on above: Result Comment: Elec [...] urethra. Follow these instructions at home: Take chsq-xrn-kgvqaiu and prescription medicines only as told by [...] 08/08/2006 Document Revised: 07/03/2019 Document Reviewed: 09/12/2017 [employer] Patient Education 2020 Criers Podium. Follow Up Care 05/27/2022 15:25:17 With:SELENA LEONG, Jf Reis, URL Address: [facility] [address] [place] [address] [phone] When: Unknown [facility] 06-16-2022 History of Present illness Narrative ASSESSMENT/PLAN: [...] Z96.1 -S/P PCIOL Left eye (02/07/17) Aim: [place] by Dr. 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 Nuclear senile cataract of right eye - ICD9: 366.16, ICD10: H25.11 He is still happy enough with his vision and opts to follow up with Dr. Gray January 2023 for exam/cataract evaluation 4. History of retinal detachment - left eye - ICD9: V12.49, ICD10: Z86.69 history of retinal detachment repair OS 2007 in [place]. Call/come in for evaluation immediately if [...] and in the presence of, Dr. Krissy Gary M.D. 06/16/22 The documentation recorded by the [...] Krissy Gray MD documented in this encounter [facility] 03-01-2022 History of Present illness Narrative ASSESSMENT/PLAN: [...] 2022 4:08 PM documented in this encounter [facility] 02-26-2022 Miscellaneous Notes Called to let patient know we were able to get him an appointment in [place] at 4pm, left message. SENTHIL Ballesteros February 26, 2022 3:[address] Gray and she recommends that he be seen today. Please reach out to Patient to see if we can get appointment. SENTHIL Ballesteros February 26, 2022 2:57 PM documented in this encounter [facility] 02-17-2022 History of Present illness Narrative Assessment/ [...] h/o retinal detachment repair OS 2007 in [place]. Stable. Call/come in for evaluation immediately if [...] eye -S/P PCIOL Left eye (02/07/17) Aim: [place] by Dr. Gray Signs and symptoms of posterior capsular opacification were reviewed. Discussed possible eventual need for Yag laser posterior capsulotomy. Patient is still happy enough with vision, so declines Yag procedure for now. stable; he remains happy with his vision OS and with OTC readers If he wishes to get new glasses, previously offered an undilated refraction with our optometrists in [place]; he was told that vision with new glasses would not be perfect due to cataract OD; he also has mild PCO OS and Epiretinal membrane OS. He sees a nurse practitioner in [place] Offered for him to establish with a F attendant coin operated laundry in [place] Return to clinic in 12 months for [...] Gray MD 02/17/22 documented in this encounter [facility] Evaluation + Plan note No data available for this section [facility] Evaluation note Diagnosis Nuclear senile cataract of [...] by other means [facility] Diagnosis 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, left- Primary [...] both upper eyelids [facility] Diagnosis 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, left- Primary [...] stated as uncontrolled [facility] noteNo assessment information availableL[facility] Work Phone: Evaluation note* Diagnosis OPENED IN ERROR- Primary To allow closing an encounter opened in error (used in SmartSet) [facility] Diagnosis Type 2 diabetes mellitus [...] and sense organs [facility] Diagnosis Elevated prostate specific antigen (PSA)- Primary BPH without obstruction/lower urinary tract symptoms Hypertrophy of prostate without urinary obstruction and other lower urinary tract symptoms (LUTS) [facility] Diagnosis Elevated prostate specific antigen (PSA)- Primary APPOINTMENT CANCELLED Retinal hemorrhage, left eye- Primary Retinal hemorrhage History of retinal detachment Personal history of other disorders of nervous system and sense organs Epiretinal membrane (ERM) of left eye [facility] Retinal hemorrhage, left eye- Primary Retinal hemorrhage History of retinal detachment Personal history of other disorders of nervous system and sense organs Epiretinal membrane (ERM) of left eye Nuclear senile cataract of right eye Pseudophakia, left eye Lens replaced by other means History of YAG laser capsulotomy of lens, left documented in this encounter [facility] Discharge instructions No data available for this section [facility] No data available for this section [facility] [place] Medications Administered Section Active Administered Medications - up to 3 most recent administrations Medication Order MAR Action Action Date Dose Rate Site fluorescein-benoxinate 0.25-0.4 % 1 Drop (FLURESS) 1 Drop, BOTH EYES, DIRECTED, Starting on Tue02/17/22 at 1330, Until Tue02/18/22 at 0129, Administer for applanation tonometry. 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 Advance Directive(s) 02/07/2017 9:56 AM [...] or prosecute any alcohol or drug abuse [facility] the event this information is protected by the Federal Confidentiality of Alcohol and Drug Abuse Patient Records regulations: The Federal rules restrict any use of the information to criminally investigate or prosecute any alcohol or drug abuse patient.[facility] the event this information is protected by the Federal Confidentiality of Alcohol and Drug Abuse Patient Records regulations: The Federal rules restrict any use of the information to criminally investigate or prosecute any alcohol or drug abuse patient.[facility] the event this information is protected by the Federal Confidentiality of Alcohol and Drug Abuse Patient Records regulations: The Federal rules restrict any use of the information to criminally investigate or prosecute any alcohol or drug abuse patient.[facility] the event this information is protected by the Federal Confidentiality of Alcohol and Drug Abuse Patient Records regulations: The Federal rules restrict any use of the information to criminally investigate or prosecute any alcohol or drug abuse patient.[facility] the event this information is protected by the Federal Confidentiality of Alcohol and Drug Abuse Patient Records regulations: The Federal rules restrict any use of the information to criminally investigate or prosecute any alcohol or drug abuse patient.[facility] the event this information is protected by the Federal Confidentiality of Alcohol and Drug Abuse Patient Records regulations: The Federal rules restrict any use of the information to criminally investigate or prosecute any alcohol or drug abuse patient.[facility] the event this information is protected by the Federal Confidentiality of Alcohol and Drug Abuse Patient Records regulations: The Federal rules restrict any use of the information to criminally investigate or prosecute any alcohol or drug abuse patient.[facility] the event this information is protected by the Federal Confidentiality of Alcohol and Drug Abuse Patient Records regulations: The Federal rules restrict any use of the information to criminally investigate or prosecute any alcohol or drug abuse patient.[facility] the event this information is protected by the Federal Confidentiality of Alcohol and Drug Abuse Patient Records regulations: The Federal rules restrict any use of the information to criminally investigate or prosecute any alcohol or drug abuse patient.[facility] the event this information is protected by the Federal Confidentiality of Alcohol and Drug Abuse Patient Records regulations: The Federal rules restrict any use of the information to criminally investigate or prosecute any alcohol or drug abuse patient.[facility] Reason for Visit (unrecogniz ed section and [...] Care Teams (unrecognized sec tion and content) 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 Specialty Start Date End Date Raul Sun MD PCP - General Family Practice 02/11/21 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 Specialty Start Date End Date Raul Sun MD PCP - General Family Practice 02/11/21 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 Specialty Start Date End Date Raul Sun MD PCP - General Family Practice 02/11/21 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 Specialty Start Date End Date Raul Sun MD PCP - General Family Medicine 02/11/21 Team Status: Inactive Member Role Status Dates Jf Sanches MD Attending Provider Active AMMY Darling Primary Care Provider Active Team Status: Active Member Role Status Dates NILESH DarlingC Primary Care Provider Active 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 Specialty Start Date End Date Raul Sun MD PCP - General Family Medicine 02/11/21 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 Specialty Start Date End Date Raul Sun MD PCP - General Family Medicine 02/11/21 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 Specialty Start Date End Date Raul Sun MD PCP - General Family Medicine 02/11/21 Daina Judge CNP [address] [place] [address] Referring Internal Medicine 10/15/23 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 Specialty Start Date End Date Raul Sun MD PCP - General Family Medicine 02/11/21 Daina Judge CNP [address] [place] [address] Referring Internal Medicine 10/15/23 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 DATE CREATED AUTHOR AUTHOR'S ORGANIZ ATION 10/28/2022 [facility] DATE CREATED AUTHOR AUTHOR'S ORGANIZ ATION 12/01/2022 [facility] DATE CREATED AUTHOR AUTHOR'S ORGANIZ ATION 12/28/2023 [facility] DATE CREATED AUTHOR AUTHOR'S ORGANIZ ATION 01/01/2024 [facility] DATE CREATED AUTHOR AUTHOR'S ORGANIZ ATION 02/11/2024 [facility] DATE CREATED AUTHOR AUTHOR'S ORGANIZ ATION 03/10/2024 [facility] FOR RECORDS PERTAINING TO PATIENTS WHO ARE [...] BE BASED ON THE PRIMARY CLINICAL RECORDS. [employer] [facility]. provides no warranty or guarantee of the accuracy or completeness of information in this document.
[2024-05-21 15:28] LABS: Anion Gap 11.6; BUN Creatinine Ratio 5.4; Calcium 8.9 mg/dL (8.5-10.1); Carbon Dioxide 25.3 mmol/L (21.0-32.0); Chloride 92 mmol/L (98-107); Estimated GFR (African America >60 (>=60); Estimated GFR (Non-African Ame >60 (>=60); Glucose 152 mg/dL (74-106); Potassium 4.9 mmol/L (3.5-5.1)
[2024-05-21 15:32] LABS: Sodium 124 mmol/L (136-145)
== END 2024-05-21 15:06 | disposition home or self-care (01) ==
LOC: LAB 15:06
PROVIDERS: PCP Nurse Practitioner Family; Visit Provider Internal Medicine
DX: E87.1 Hypo-osmolality and hyponatremia (principal)
CPT/HCPCS: 36415; 80048

== ENCOUNTER 2024-05-25 14:58 | Outpatient (OUT) | payer MEDICARE, SELFPAY ==
--- OUTSIDE RECORDS SUMMARY | 2024-05-25 15:05 | XMS_ITS | CCD ---
Author Organization [facility] CliniSyor Care Team Providers Care Impregnator And Drier Name Role Phone Raul Sun MD Primary Care Provider DAINA JUDGE Primary Care Physician [phone] MD Jf Sanches Attending Provider [phone] AMMY Judge Primary Care Provider Daina Judge Primary Care Unavailable Jf Sanches Attending Unavailable Jf Sanches Admitting Unavailable SELENA ., DR RHOADES Admitting Unavailable SANCHES ., DR RHOADES Attending Unavailable DAINA JUDGE Primary Care Unavailable SANCHES ., DR RHOADES Consulting Unavailable DAIAN JUDGE Admitting Unavailable DAINA JUDGE Attending Unavailable [...] Primary Care Provider Daina Judge CNP Unavailable Raul Sun MD Primary Care Provider [...] Penicillins; Translations: [PENICILLINS] Drug Allergy 7 Rash [facility] (5 sources) Penicillin; Translations: [penicillin] Drug Allergy 2 Unknown skin reaction [facility] (1 source) Penicillins Drug allergy (disorder) 2 [facility] Repository (1 source) amLODIPine; Translations: [AMLODIPINE] Drug Allergy 4 [facility] Repository Medications Current Medications Medication Drug Class(es) Dates Sig (Normalized) Sig (Original) [id number] 200 actuat albuterol 0.09 mg/actuat metered dose [...] Other eye disorders (2 sources) History of ftwrcan-ceeuaqdh-lru net (YAG) laser capsulotomy of lens; Translations: [...] Range Facility Office Visiton 02-09-2024 Follow-up visit [id number] Pan Martin 1950 M Date Provider Department Center 02/09/2024 HILDA OLIVO CARD [facility] Family History Problem Relation Age of Onset Coronary artery disease Father Stroke Father Family Status - Relation Status Age at Father Level of Service:11197 [place] OFFICE/OUTPATIENT ESTABLISHED LOW MDM 20 MIN Normal [facility] OCT MACULA CIRRUS OU (BOTH E YES)on 12-27-2023 [facility] Radiology Study observation (narrative) [facility] Km 12-08-2023 [place] Telephone (ABDULKADIR) -- GIANFRANCO MARTIN ([id number]) 1950 M Date Time Provider Department 12/08/23 ALE HICKMAN During your visit today, we recorded the following information about you: Ale Hickman MD 12/13/2023 5:41 PM Signed Please call again and update me Please notify patient that his PSA is rising from 9 to 10.6 He needs prostate bx Can be done in office under local anesthesia or in ASC under MAC ( [place] [facility]) He can come to 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 Can you try reaching him again with [...] Status:Closed by ALE HICKMAN on 12/08/23 Normal [facility] PSA SerPl-mCncon 11-17-2023 Prostate specific Ag [Mass/Vol] 10.58 ng/mL High <2.60 [facility] Comment on above: Order Comment: Speci men Type: BLOOD SPECIMEN Ordering Facility: [facility] Address: [address] [place] [address] Result Comment: Tomas luong PSA test methodology [...] 2003,349:335-42. Performed By: #### 2 [id number] #### [facility] CLIA [id number] [address] [place] [address] [place] [address] [place] CNOVon 10-24-2023 CNOV Office Visit (UROLLN ) -- GIANFRANCO MARTIN ([id number]) 1950 M Date Time Provider Department 10/24/23 2:40 PM ALE HICKMAN During your visit today, we recorded the following information about you: Pulse Blood pressure Weight 79/minute 157/66 97.5 kg Raven Babcock 10/24/2023 3:09 PM Signed Gianfranco [facility] [address] 72 year old male with nuclear sclerotic [...] 2007 Retinal detachment, left eye, repaired in [place], [place] PAST SURGICAL HISTORY OF hernia sx, [...] nontender, w/o nodules. Good anal sphincter tone. [facility] SYMPTOMS SCORE. Date 10/24/2023 1. [...] Moderate By (more content not included)... Normal [facility] 37on 10-21-2023 37 Resume taking norvasc/Amlodipine 5 mg daily for blood pressure Normal [facility] Office Visiton 10-21-2023 Follow-up visit [id number] Pan Martin 1950 M Date Provider Department Center 10/21/2023 120-HILDA HA CARD [facility] Family History Problem Relation Age of Onset Coronary artery disease Father Stroke Father Family Status - Relation Status Age at Father Level of Service:68037 [place] OFFICE/OUTPATIENT ESTABLISHED MOD MDM 30 MIN Normal [facility] 36on 10-06-2023 36 JEANIE Bean MA Labs look good- no concerns= kidney function normal and electrolytes normal Regarding labs done on 10/04/2023 Patient made aware. Normal [facility] 37on 09-21-2023 37 Stop amlodipine- and start spironlactone- 1 tab daily. Have blood work drawn about 1 week after starting this new med to check kidney function and electrolytes. Call office for any concerns Normal [facility] Office Visiton 09-21-2023 Follow-up visit [id number] VeronicaPan gunderson 1950 M Date Provider Department Center 09/21/2023 120-HILDA HA JARAD [place] [facility] Family History Problem Relation Age of Onset Coronary artery disease Father Stroke Father Family Status - Relation Status Age at Father Level of Service:85954 [place] OFFICE/OUTPATIENT ESTABLISHED MOD MDM 30 MIN Normal [facility] Office Visiton 08-26-2023 Follow-up visit [id number] LilyannaPan gunderson 1950 M Date Provider Department Center 08/26/2023 3848-FABRIZIO MACIAS Hos Family History Problem Relation Age of Onset Coronary artery disease Father Stroke Father Family Status - Relation Status Age at Father Level of Service:37277 [place] OFFICE/OUTPATIENT NEW LOW MDM 30 MINUTES Normal [facility] Patient Letter FTMCon 2022 Patient Letter [facility] (Inserted Image. Prema ble to display) November 30, 2022 [place] [address] GIANFRANCO MARTIN 1950 Dear Gianfranco Martin, Executive [...] Jf Sanches M.D., F.A.C.S. [facility] [address] [place] [address]ale[place], [place] [address] , OPTION #3 SENT REGULAR/CERTIFIED MAIL Normal [facility] [place] [facility] Coding Summary.on 10-27-2022 Coding Summary. CD:[id number] Gh0bWw +PGhlYWQ+LW8VPJEvX35bvUCgo E5fI8UCOYiSFiyyULJRULiCRmK mveXrGA4uvOCrAQVb IC8+ZF3vBWMtPhqepKBuu3S4iQ Z9R32buv6jVUtdqYE4SZReChEw adzap0nlnXi3WGudCnqeEfZe IZYuxX24QKQ0oA85Bl70xNAemQ Iwl2geiPj5KuKmZRQwLAV1bGlf TPwfs4IuVAAdX94ezGQqr4Z8 JAUgpEkypAWbIrVfuNS7nV9yTI trmgmnl4haifxbBcn1dq62fFCz f5O1oXP0A0DuppT2CBOjpNWg UgnapZIIiU7vqspmj4dntxqmSc ElXGVyZEp9AUf2EJNzxDkvQrVu JC13FCH1GUKtbfWwI5JnIPTy xCitVxP3w4I8Qv4EM7PDWkcjP3 VNTUFSWTwvdGQ+YX81xp58N2Uk DdzzUsg2KEUfUKV6qAY3oF9r KPCuQQfnb4H6eDR0H8FyqvEbyq 3tz4dsNKDnONyxM89oqFFqj9R5 JOGxuKK1NKBmeRyuGgTwpA50 Oyc+ZHAtbPoyx5ZlSzdzw9hyx4 tkgWl5YlibCOOcvkAtcHpeWGN2 g9FhEw4bYCBorDI1sES6zL7r PrRtVwQ0VHteG463DdZxoJBqLk nnJ03fX4DisPR+RWTnHpl7ABWx yBflWL7mY5CcTSSqjmvtcEHj sIjnGG5eHLOgrgjcTAShcY3eFW HtS1q0UtGfKhW6EWtvE9JbLKCw uvlrXv14gA3cOqHwIoF8GMhb P5MxxwE0KVCtuPYwIAhiTEM6L9 9wg1W5ELUmIVWuROH6oKF2tN7d bGlnbjogbGVmdDsgdmVydGlj CTtuQVkrR185ANAdoNoyAlIuNZ luZyBEYXRlOiAgMDMvMDgvMjAy MzwvdGQ+ZLYpLXY6pAahYQBu yFNlAZblGw2htAemxRbxSF6xEP VzgjfvMTEywU7oENLhnIZdcNzj MF1rFWNkjjopu948EcOrQFL0 BRNoeRPbH8GcpX9dNqTmRUAyXX IdD5NhsWIzJUocX794MCxdGlA5 XIIogtOtD4WoZXTklCooZwU0 v9E9Pd5Px4PorclnK0DxmKIeTh NpIfstIOk7M5YnQzwhxYT+PC90 VNGfMI14XPi6DVE1hEdtCHlw HULgH6PjaQ5sIdHgHFJwTDYbFr c+PHRhYmxlIHdpZHRoPScxMDAl WtDfcKgoSV7gQg6hGYMaKQWh yJgybBNeYmFbw8lqKTYaEWtjKM 3wnZppI7DysNL8RXWwh1h9Fd47 Q12jU2PxnVM+FXXarGU3sVN3 yV5dCnNjDmY4OUwrI223QwUvkG DwVkybl8dra8rprBz3QzT7SUFr eeOovAmoLYF5w8AuLk28Z75y IHdpZHRoPSIxNSUiIHZhbGlnbj 2jmJ9aXv5+IIYszEG2dES8nE3p MbEdBlC7JAqsL465PhHcyUPr Vugqv1pgm4lerOt0HiHmHEOhxw NdeNnuWSW7e9PaWo23F2QriRsc w9VpMrg3qm70sQXts5Z2eWS9 K1ShMBBbwbgtaVZpkQiwNI8qKM XrkebmJNPwdC6mKOVkO1s9PiCw KnF2SZucM5DlvyF6DILxiISo XFBrfSTPpJ6sovfsa3ujouqwGv GcBOFbSZv1PGc2JEEtuStiTiYj CUF0GkB2QQR3oDBenJ0ydRiv xqfozP4fLnv+VTQ8bBDnuYOPPS 1lOjwvdGQ+GTOlDLV3qXfgLOgx NDSdxS1gQEGmV1c9YwFzVrG1 PGrrJ4JgmyS4JMXibMQxKMRrvX WHfT6srfrsg6vzhunkBdFsYMYv BUj3NVu8DOSbiVtxGkCnSLG6 DqR0XDC8wKOreA1nuYsizbhnmT 9wOyc+ObcmfWwgRKL0KYu7Y7Hi Foa4ULQmpNarVI0flPKmIOqv Fi8vxExuzYvuUU1oEFOiprimi5 73ZgSpw5rwYHXreCKqOWzpKXS8 P16is0N9WAEwFPUgGEZ3wLN7 dR5cdFqrvmoywEMdoZqqoqRmsP hbLMbiEUbhH961EGYmpKrpFzDm DJx9L2YqHjq7TDSloYppNO2q eHBiAOnzXc4inNbioTjtQF1kUI Pdamgoi941CkCtw9rjPDSwmKTp GQhaASE0N94dr6N7JIOnICKp VHK9hAE8cJ4xjPasllcavKKulF wvljDitBnlESwdVIyvH223MHDq rNkiEyQcaLc0X3IhBrl7TPTz yOuoFQ9fqFQaOUrjCq7hsTbxhP yoYY0lHQQjluzab017VeCyv1ot IZVvrUQfJOlpMZK9Q36wu4M7 XNCdYZDdKKS8qKI9zN4zaHrsxf ogbGVmdDsgdmVydGljYWwtYWxp J310CYZhnIwnUrDqlDtrdmEj CHzhYJm8H2ItPyqjeKX+PC90YW EiDJ04rXMpzLDzb6gtvPd9DnGd FOExXPT7cJnnIKwcu2NvGRJw M08haPNxv8X4GQFhhQlbsDSbMz LmsST6tO1sSUdjroruf2zguvgt Ujyeb2jzur47sM25B59xHHue VTFmDPYsCOUnADWjiMqfok2txO 9wIi8+HRXkrSO1oRE9uX5kNKMw BkA0GSuwB827KwZegIKwPqqf g7ulv4klaEf5EsU0NZGjxmNolG loIHV7w7FoHb85N28fHCruEFZg MSUgHNVsYAZkyVzjdi8goD5c Ii8+HPJuaKO7jCX0aH7vNaQjZs T6LAzjI188BpEirAYcTpfkJ43l M9PmyAV+ELZyNtc9JEBjzPrs CS5qnOOsAXibZz5nEYU5ZuBtVb FzJDauQ2CxRGGgapbzhtzipIK7 EVQkFENszG04Nq7lsHrdPNXe uIUUoJ1jlmxew8iaxeicMqQiXF PcSFl0MSa8ZVGjsQsuZqQkABB3 IqK1XFT1eGSleB4heLldlhgz bR3hL4AdXYEyaxizVl43zU7bGy RrLaJ4TXdiJss+UFVMTEFOTywg NpjPP3mQUhbyvYV+PHRkIHN0 wQngEIhsNHSzcI0iAAXfU8p5Uy VbFwE9HKwvW4MbMJGgzwqoOj75 gJ1eIqJlWjH9POlhP8ErtoK8 KHHfsXRnADqhTCY5F13mh2Y7DK MbBIXzKMX0dMG7mB9rdVhkyeaj bGVmdDsgdmVydGljYWwtYWxp U838NRUkpDurIwY9FdE7TzT8QM V8J8KuAjq7IEWjpUveLC1geWNw UBeaLw8nuPokwMmjGL7iXLNy vlcuWXHoxS6dMMLheBZoiZiqKH 3bSTHjxfaez734LlRjIQJ9LTUy dRWuV9LovC9dNyVbPCXeYXZk W1JrtYOmLBrlK800SBiwFtP6KT GrheMdW0BqWQYgbUxzKbG0m3G0 Cb24NtAJFEWxkijnpNK+PHRk UQL5uHvmCJoaPSUbvI7rYCGzY4 e7CyBqHnF6QHwpQ8BaGRVunppf Dp99eJ6aEqGbQrB3ZXmaD3Fd slV5QQOzbTEnMGhpWXI1C61aq8 K3DWXfMKRkFHO7xBK3bK3ggOyl bjogbGVmdDsgdmVydGljYWwt NIwcV023FYAapTzaYe8maHD1Z8 PjLld3LIIybUbcKL5jkVVhZKkt Nh4piKstoDxnLB8pSVYltdal KMRygZ8kQLTdsTJosBlcHD8sSV Sagbgnf716McCiHEM0JHLphLAl E7SynI8eLmSrRSUnWUOnA8Hz xBBiMPycK466VCzrApR0XFBniu VuH5HzPAOraKekPuB4x4L2Te9O JZXjNJPuaQYqQoV7E2BkQyxo dHI+MF22IUKaSH99bEAndOMyz3 dtfGc2PmPfBBYyRHV0bUjzJSxw k7LkPLHfW18trLEfo4H6ECWj sKnzrYPhWjFquYA0fY2uIEsmvj tdz4xjiceeBipni4hfgu53bB75 D40qWQcuWIUbHZGnOMTmINUr sOyczy3eaR3mTl2+KEPpgZL8yC I6gQ3eMtBxTvG7QPqyV577HxQf eKMuNlype4eox8jiaLx1DeBt YGDdqjEafVnuIAY7g0TvZm65K5 9sIHdpZHRoPSIyMCUiIHZhbGln uq8bhC4lOn4+NO3xr2lnle35 gE20sHV+DOCcTMY1xHrxFNgtKB YevA1fYHpqJmN4ZPPaQaXjkU76 qAKwLEhpRo9zvUxxjQpmLL7f DTPitxrvj578SyWzb3gvULAhjF EoAJycHNB8E51zm0V4LHOuHYLo KSX3sJI9cY3fyPsquihttYGb dLbqupRujIqnEAhpOWfkK753XD AqhPhrJzBgwFBfY2hcxpHXKR4h OjwvdGQ+SDVxZTA3dZriALll UOBhtC2qODZlA3u9YnQyAqK1PZ cwJ4LvfuM5GJLajSMbTIEhkKBH pF0fsqsrq1exvvwyZiPcCJRd CQy5RWr3SRLuqPlaPfPqMGK8Vm S1HLK1uCAxeK0yaRsxpdrikQ6h Oyc+RklOOjwvdGQ+PHRkIHN0 kNklANnqWHIfyG0nGXCcA5k6So OmAtF9ZPqcD9EzinI8HLYkrFIu MYCfiLTNrB4ldtixp4rwbflh NzCtOHTsSTn5MHa9MTRleRnaNg AdRSF6TcY9EJG4zMNrpL1fhAio twcumK6kLen+TVJOOjwvdGQ+ VROqFSQ5eKncWGyzVOVnkQ6dMO XiS9p2JrGkNrO2PKkzQ1JphmN5 GPAjaDDuUZRxkCVGgR9adgwd s9ipgmscJgSgVAFuFBt3BXn8XT SefTrcMyGhZIZ2ZzU9HNJ0kAQo lN5tuArqyxhfvK0rVjd+UGF5 EPK4TX34VN59N6JbHdcobSTdtC U+PHRhYmxlIHdpZHRoPScxMDAl ZfPigGaaSG4sXk9wHPVcGBEr bGxh (more content not included)... Normal [facility] [place] [facility] Lab Reportson 10-27-2022 Lab Reports [id number]#[id number]:127 Normal [facility] [place] [facility] Ambulatory Visit Summaryon 0 10-15-2022 Ambulatory Visit Summary GIANFRANCO MARTIN :1950 Visit Date:10/15/2022 Ambulatory Visit Instructions Your Diagnosis Elevated PSA Benign prostatic hyperplasia (BPH) with post-void dribbling Tests Performed Urnls Dip Stick Auto w/o Microscopy POC 46686 Your Care Team Attending Physician - SELENA [...] with SELENA LEONG, STEFANI Seo When: Where: [address] [place] [address]- Medications What When Instructions Unchanged amlodipine (amLODIPine [...] Urnls Dip Stick Auto w/o Microscopy POC 13256 (10/15/2022) Bilirubin Urine Dipstick - Negative Blood Urine Dipstick - Negative Glucose Urine Dipstick - Negative Ketones Urine Dipstick - Negative Leukocytes Urine Dipstick - Negative Nitrite Urine Dipstick - Negative Protein Urine Dipstick - Negative Specific [place] Urine Dipstick - 1.010 Urine Appearance Urine [...] of these risk factors: ? Being of -[place] descent. ? Having a family history of prostate cancer. ? If you are age 55?69, talk with your health care provider about (more content not included)... Normal [facility] Patient Educationon 10-15-19 Patient Education [...] of these risk factors: ? Being of -[place] descent. ? Having a family history of [...] Are older than age 55. ? Are -[place]. ? Have a father, brother, or uncle [...] R (more content not included)... Normal [facility] Urology Office/Clinic Noteon 10-15-2022 Urology Office/Clinic Note [...] Contact Information SELENA LEONG, Jf Reis, [address] [place] [address]- Additional Instructions: PSA today - await results [...] Father. Immunizations Vaccine Date Status Comments SARSCoV2 mRNA(tukawvqbk-zqtr-bfavkv ) vac 03/12/2022 Recorded 2022-06-28: TPV70 SARS-CoV-2 [...] Dipstick: Negativ (more content not included)... Normal [facility] [place] [facility] Comment on above: Result Comment: Elec tronically Signed By: Jf SANCHES MD\.br\Date and Time Signed: 10/15/22 11:23 EST\.br\Electronically Co-Signed By: Dori Wynne\.br\Date and Time Co-Signed: 10/15/22 11:19 EST\.br\Electronically Co-Signed By: Dori Wynne\.br\Date and Time Co-Signed: 10/15/22 11:21 EST Creatinine (Bld) [Mass/Vol]O rdered By: Jf Sanches on 07-14-2022 Creatinine [Mass/Vol] 0.8 mg/dL 0.6-1.3 [facility] Comment on above: ER/ESD physician is notified/shown all ISTAT results.Critical values may be confirmed by laboratory testing ifdeemed necessary by ER attending doctor. ISTAT XRay CREon 07-14-2022 Creatinine [Mass/Vol] 0.8 mg/dL Normal 0.6-1.3 [facility] Comment on above: Result Comment: ER/E SD physician is notified/shown all ISTAT results. Critical values may be confirmed by laboratory testing if deemed necessary by ER attending doctor. Performed By: #### I SCRE #### [facility] [address] [place] [address] Point of Care testing , ISTAT GFR ( > 60 Normal [facility] Comment on above: Result Comment: GFR estimated reference range: According to KDOQI guidelines, <60 ml/min/1.73m2 is sufficient to diagnose a patient with chronic kidney disease. PERFORMED BY: [place] [address] PATHOLOGIST DIRECTOR OF PATIENT SAFETY MADELYN LAIRD M.D. Performed By: #### I SCRE #### [facility] [address] [place] [address] Point of Care testing , ISTAT GFR (Non- Am > 60 Normal [facility] Comment on above: Performed By: #### I SCRE #### [address] Point of Care testing , No Panel InformationOrdered By: Jf Sanches on 07-14-2022 POC Estimated GFR > 60 [facility] Comment on above: GFR estimated refere nce range: According to KDOQI guidelines, <60 ml/min/1.73m2 is sufficient to diagnose a patient with chronic kidney disease. POC Estimated GFR Non- Amer > 60 [facility] Pre-Certification Formon Pre-Certification Form [id number]#1.00CD:127 Normal [facility] [place] [facility] Lab Reportson 07-05-2022 Lab Reports [id number]#[id number]:127 Normal [facility] Physician Referralon 022 Physician Referral [id number]#[id number]:127 Normal [facility] Ambulatory Visit Summaryon 1 08-28-2021 Ambulatory Visit [...] Urology [address], [place] [address] [id number] Medications What When Instructions Unchanged amlodipine (amLODIPine [...] prostate gland (more content not included)... Normal [facility] Historical Records Officeon 06-28-2022 Historical Records Office [id number]#[id number]:127 Normal [facility] Patient Educationon 06-28-20 22 Patient Education Urology [...] Follow these instructions at home: ? Take xxrk-nrg-drtmesa and prescription medicines only as told by [...] You d (more content not included)... Normal [facility] PSA, FREE AND TOTAL RATIOon 05-21-2022 % Free PSA 7.1 % Normal [facility] Comment on above: Result Comment: The table [...] men. Performed By: #### P SAFREE #### [facility] [address] [place] [address] Dr. Zaira Benoit Prostate specific Ag [Mass/Vol] 6.8 ng/mL Critically high 0.0-4.0 [facility] Comment on above: Result Comment: Bryant PERRYIA methodology. . According to the [place] [employer], Serum PSA should decrease and [...] disease. Performed By: #### P SAFREE #### [facility] [address] [place] [address] Dr. Zaira Benoit PSA, Free 0.48 ng/mL Normal N/A [facility] Comment on above: Result Comment: Bryant woodruff ECLJUANY methodology. Performed By: #### P SAFREE #### [facility] [address] [place] [address] Dr. Zaira Benoit INSULINon 05-13-2022 Insulin 7.8 uIU/mL Normal 2.6-24.9 [facility] Comment on above: Performed By: #### I NSULIN #### [facility] [address] [place] [address] Dr. Zaira Benoit CBC AUTO DIFFon 05-12-2022 BASO # 0.1 103/ul Normal 0.0-0.1 [facility] Comment on above: Performed By: #### C BC #### [facility] [address] [place] [address] Dr. Zaira Benoit Basophils/100 WBC (Bld) 0.9 % Normal 0.2-2.0 [facility] Comment on above: Performed By: #### C BC #### [facility] [address] [place] [address] Dr. Zaira Benoit EO # 0.2 103/ul Normal 0.0-0.7 [facility] Comment on above: Performed By: #### C BC #### [facility] [address] [place] [address] Dr. Zaira Benoit Eosinophils/100 WBC (Bld) 2.1 % Normal 0.9-7.0 [facility] Comment on above: Performed By: #### C BC #### [facility] [address] [place] [address] Dr. Zaira Benoit Erythrocyte distribution width (RBC) [Ratio] 13.2 % Normal 11.0-15.0 [facility] Comment on above: Performed By: #### C BC #### [facility] [address] [place] [address] Dr. Zaira Benoit Hematocrit (Bld) [Volume fraction] 46.6 % Normal 42.0-54.0 [facility] Comment on above: Performed By: #### C BC #### [facility] [address] [place] [address] Dr. Zaira Benoit Hemoglobin (Bld) [Mass/Vol] 15.5 g/dL Normal 14.0-18.0 [facility] Comment on above: Performed By: #### C BC #### [facility] [address] [place] [address] Dr. Zaira Benoit IG # 0.02 10e3/ul Normal 0.00-0.03 [facility] Comment on above: Performed By: #### C BC #### [facility] [address] [place] [address] Dr. Zaira Benoit IG % 0.3 % Normal 0.0-0.5 [facility] Comment on above: Performed By: #### C BC #### [facility] [address] [place] [address] Dr. Zaira Benoit LYMPH # 2.6 103/ul Normal 1.2-3.8 [facility] Comment on above: Performed By: #### C BC #### [facility] [address] [place] [address] Dr. Zaira Benoit Lymphocytes/100 WBC (Bld) 36.9 % Normal 20.5-60.0 [facility] Comment on above: Performed By: #### C BC #### [facility] [address] [place] [address] Dr. Zaira Benoit MANUAL DIFF REQ NO Normal [facility] Comment on above: Performed By: #### C BC #### [facility] [address] [place] [address] Dr. Zaira Benoit MCH (RBC) [Entitic mass] 33.2 pg Normal 25.9-34.0 [facility] Comment on above: Performed By: #### C BC #### [facility] [address] [place] [address] Dr. Zaira Benoit MCHC (RBC) [Mass/Vol] 33.3 g/dL Normal 29.9-35.2 [facility] Comment on above: Performed By: #### C BC #### [facility] [address] [place] [address] Dr. Zaira Benoit MCV (RBC) [Entitic vol] 99.8 fL Critically high 80.0-94.0 [facility] Comment on above: Performed By: #### C BC #### [facility] [address] [place] [address] Dr. Zaira Benoit MONO # 0.6 103/ul Normal 0.3-0.8 [facility] Comment on above: Performed By: #### C BC #### [facility] [address] [place] [address] Dr. Zaira Benoit Monocytes/100 WBC (Bld) 9.1 % Normal 1.7-12.0 [facility] Comment on above: Performed By: #### C BC #### [facility] [address] [place] [address] Dr. Zaira Benoit NEUT # 3.6 103/ul Normal 1.4-6.5 [facility] Comment on above: Performed By: #### C BC #### [facility] [address] [place] [address] Dr. Zaira Benoit Neutrophils/100 WBC (Bld) 50.7 % Normal 43.0-75.0 [facility] Comment on above: Performed By: #### C BC #### [facility] [address] [address] [address] Zaira Benoit Platelet mean volume (Bld) [Entitic vol] 9.3 fL Critically low 9.5-13.5 [facility] Comment on above: Performed By: #### C BC #### [facility] [address] [address] [address] Zaira Benoit PLT 191 103/ul Normal 150-450 [facility] Comment on above: Performed By: #### C BC #### [facility] [address] [address] [address] Zaira Benoit RBC 4.67 106/ul Critically low 4.70-6.10 [facility] Comment on above: Performed By: #### C BC #### [facility] [address] [place] [address] Dr. Zaira Benoit WBC 7.0 103/ul Normal 4.0-11.0 [facility] Comment on above: Performed By: #### C BC #### [facility] [address] [place] [address] Dr. Zaira Benoit GLYCOHEMOGLOBIN A1Con 2021 ADA RECOMMENDATION SEE BELOW Normal [facility] Comment on above: Result Comment: ADA RECOMMENDED LIMIT 4.0 - 6.0 ADA THERAPEUTIC TARGET < 7.0 ACTION SUGGESTED > 7.0 Performed By: #### A 1C #### [facility] [address] [address] [address] Zaira Benoit Glucose [Mass/Vol] 151 mg/dL Normal [facility] Comment on above: Performed By: #### A 1C #### [facility] [address] [address] [address] Zaira Benoit HbA1c (Bld) [Mass fraction] 6.9 % Critically high 4.5-6.2 [facility] Comment on above: Performed By: #### A 1C #### [facility] [address] [place] [address] Dr. Zaira Benoit LIPID PROFILEon 05-12-2022 CHOL-HDL RATIO NORM SEE BELOW Normal [facility] Comment on above: Result Comment: 3.3 - 4.4 LOW RISK 4.4 - 7.1 AVERAGE RISK 7.1 - 11.0 MODERATE RISK >11.0 HIGH RISK Performed By: #### L IPID, URIC, CMP #### [facility] [address] [address] [address] Zaira Benoit Cholesterol [Mass/Vol] 132 mg/dL Normal <=200 [facility] Comment on above: Performed By: #### L IPID, URIC, CMP #### [facility] [address] [address] [address] Zaira Benoit Cholesterol in HDL [Mass/Vol] 53 mg/dL Normal 40-60 [facility] Comment on above: Performed By: #### L IPID, URIC, CMP #### [facility] [address] [address] [address] Zaira Benoit Cholesterol in LDL [Mass/Vol] 59.6 mg/dL Normal [facility] Comment on above: Performed By: #### L IPID, URIC, CMP #### [facility] [address] [place] [address] Dr. Zaira Benoit Cholesterol.total/Ch olesterol in HDL [Mass ratio] 2.5 {ratio} Normal [facility] Comment on above: Performed By: #### L IPID, URIC, CMP #### [facility] [address] [place] [address] Dr. Zaiar Benoit HDL NORMAL > or = 60 mg/dl - LO W CARDIOVASCULAR RISK <40 mg/dl - HIGH CARDIOVASCULAR RISK Normal [facility] Comment on above: Performed By: #### L IPID, URIC, CMP #### [facility] [address] [address] [address] Zaira Benoit LDL CALC NORMAL SEE BELOW Normal [facility] Comment on above: Result Comment: <100 mg/dl OPTIMAL 100 - 129 mg/dl NEAR OR ABOVE OPTIMAL 130 - 159 mg/dl BORDERLINE HIGH 160 - 189 mg/dl HIGH >190 mg/dl VERY HIGH Performed By: #### L IPID, URIC, CMP #### [facility] [address] [address] [address] Zaira Benoit Triglyceride [Mass/Vol] 97 mg/dL Normal <=150 [facility] Comment on above: Performed By: #### L IPID, URIC, CMP #### [facility] [address] [place] [address] Dr. Zaira Benoit VLDL CALC 19.4 mg/dL Normal [facility] Comment on above: Performed By: #### L IPID, URIC, CMP #### [facility] [address] [place] [address] Dr. Zaira Benoit PROF 14(COMP METB)on 022 Albumin [Mass/Vol] 3.9 g/dL Normal 3.4-5.0 [facility] Comment on above: Performed By: #### L IPID, URIC, CMP #### [facility] [address] [place] [address] Dr. Zaira Benoit Albumin/Globulin [Mass ratio] 1.1 {ratio} Normal [facility] Comment on above: Performed By: #### L IPID, URIC, CMP #### [facility] [address] [place] [address] Dr. Zaira Benoit ALP [Catalytic activity/Vol] 92 U/L Normal 46-116 [facility] Comment on above: Performed By: #### L IPID, URIC, CMP #### [facility] [address] [place] [address] Dr. Zaira Benoit ALT [Catalytic activity/Vol] 31 U/L Normal 16-63 [facility] Comment on above: Performed By: #### L IPID, URIC, CMP #### [facility] [address] [place] [address] Dr. Zaira Benoit Anion gap [Moles/Vol] 12.2 mmol/L Normal [facility] Comment on above: Performed By: #### L IPID, URIC, CMP #### [facility] [address] [place] [address] Dr. Zaira Benoit AST [Catalytic activity/Vol] 20 U/L Normal 15-37 [facility] Comment on above: Performed By: #### L IPID, URIC, CMP #### [facility] [address] [place] [address] Dr. Zaira Benoit Bilirubin [Mass/Vol] 0.4 mg/dL Normal 0.2-1.0 [facility] Comment on above: Performed By: #### L IPID, URIC, CMP #### [facility] [address] [place] [address] Dr. Zaira Benoit Calcium [Mass/Vol] 8.8 mg/dL Normal 8.5-10.1 [facility] Comment on above: Performed By: #### L IPID, URIC, CMP #### [facility] [address] [address] [address] Zaira Benoit Chloride [Moles/Vol] 101 mmol/L Normal 98-107 [facility] Comment on above: Performed By: #### L IPID, URIC, CMP #### [facility] [address] [place] [address] Dr. Zaira Benoit CO2 [Moles/Vol] 29.3 mmol/L Normal 21.0-32.0 [facility] Comment on above: Performed By: #### L IPID, URIC, CMP #### [facility] [address] [place] [address] Dr. Zaira Benoit Creatinine [Mass/Vol] 0.88 mg/dL Normal 0.70-1.30 [facility] Comment on above: Performed By: #### L IPID, URIC, CMP #### [facility] [address] [address] [address] Zaira Benoit EGFR-AF ERITREAN >60 Normal >=[address] [facility] Comment on above: Performed By: #### L IPID, URIC, CMP #### [facility] [address] [place] [address] Dr. Zaira Benoit EGFR-NON AF ERITREAN >60 Normal >=60 [facility] Comment on above: Performed By: #### L IPID, URIC, CMP #### [facility] [address] [address] [address] Zaira Benoit Globulin (S) [Mass/Vol] 3.6 g/dL Normal [facility] Comment on above: Performed By: #### L IPID, URIC, CMP #### [facility] [address] [address] [address] Zaira Benoit Glucose [Mass/Vol] 128 mg/dL Critically high 74-106 [facility] Comment on above: Performed By: #### L IPID, URIC, CMP #### [facility] [address] [place] [address] Dr. Zaira Benoit Potassium [Moles/Vol] 4.5 mmol/L Normal 3.5-5.1 [facility] Comment on above: Performed By: #### L IPID, URIC, CMP #### [facility] [address] [place] [address] Dr. Zaira Benoit Protein [Mass/Vol] 7.5 g/dL Normal 6.4-8.2 [facility] Comment on above: Performed By: #### L IPID, URIC, CMP #### [facility] [address] [place] [address] Dr. Zaira Benoit Sodium [Moles/Vol] 138 mmol/L Normal 136-145 [facility] Comment on above: Performed By: #### L IPID, URIC, CMP #### [facility] [address] [place] [address] Dr. Zaira Benoit Urea nitrogen [Mass/Vol] 4.0 mg/dL Critically low 7.0-18.0 [facility] Comment on above: Performed By: #### L IPID, URIC, CMP #### [facility] [address] [place] [address] Dr. Zaira Benoit Urea nitrogen/Creatinine [Mass ratio] 4.5 mg/mg Normal [facility] Comment on above: Performed By: #### L IPID, URIC, CMP #### [facility] [address] [place] [address] Dr. Zaira Benoit URIC ACID SERUMon 05-12-2022 Urate [Mass/Vol] 7.5 mg/dL Critically high 3.5-7.2 [facility] Comment on above: Performed By: #### L IPID, URIC, CMP #### [facility] [address] [place] [address] Dr. Zaira Benoit No Panel Information [facility] Vital Signs Date Time Vital Sign Value Performing Clinician Sohail lovett 10-24-2023 14:53-0500 Body weight 97.52 kg Ale Hickman MD Work Phone: [facility] 10-24-2023 14:53-0500 Diastolic blood pressure 66 mm[Hg] Ale Hickman MD Work Phone: [facility] 10-24-2023 14:53-0500 Heart rate 79 /min Ale Hickman MD Work Phone: [facility] 10-24-2023 14:53-0500 Systolic blood pressure 157 mm[Hg] Ale Hickman MD Work Phone: [facility] 10-15-2022 10:45-0500 Diastolic blood pressure 79 mm[Hg] Jf SANCHES [facility] 10-15-2022 10:45-0500 Heart rate 86 /min Jf SANCHES [facility] 10-15-2022 10:45-0500 Systolic blood pressure 128 mm[Hg] Jf SANCHES [facility] 06-28-2022 13:37-0500 Blood Pressure Location Jf SANCHES [facility] 06-28-2022 13:37-0500 Diastolic blood pressure 89 mm[Hg] Jf SANCHES [facility] 06-28-2022 13:37-0500 Heart rate 74 /min Jf SANCHES [facility] 06-28-2022 13:37-0500 Respiratory rate 16 /min Jf SANCHES [facility] 06-28-2022 13:37-0500 Systolic blood pressure 140 mm[Hg] Jf SANCHES [facility] Valentina Encounters Encounter Date Encounter Type Care Provider Facility Start: 03-06-2024 End: 03-06-[address] Not Available Start: 02-09-2024 End: 02-09-2024 ambulatory KADY CROW Not Available Start: 02-09-2024 End: 02-09-2024 ambulatory HILDA DILCIA [facility] Start: 01-26-2024 End: 01-26-2024 ambulatory KAIA Huitron JIGNESH Not Available Start: 12-27-2023 End: 12-27-2023 ambulatory RAUL SUN Facility:[facility] Start: 12-27-2023 End: 12-27-2023 Patient encounter procedure Marquis Weaver OD Work Phone: Ophthalmology Comment on above: Retinal hemorrhage, left eye (Primary Dx); History of retinal detachment; Epiretinal membrane (ERM) of left eye; Nuclear senile cataract of right eye; Pseudophakia, left eye; History of YAG laser capsulotomy of lens, left Start: 12-26-2023 End: 12-27-2023 ambulatory Trevor Forte MD Facility:[facility] Start: 12-08-2023 End: 12-08-2023 ambulatory RAUL SUN Facility:[facility] Start: 12-08-2023 End: 12-08-2023 Patient encounter procedure Ale Hickman MD Work Phone: Urology Comment on above: Elevated prostate sp ecific antigen (PSA) (Primary Dx); APPOINTMENT CANCELLED Start: 12-08-2023 End: 12-08-2023 Telemedicine consultation with patient Ale Hickman MD Work Phone: [facility] Start: 12-08-2023 Telephone encounter Ale Hickman MD Work Phone: Urology Start: 11-21-2023 End: 11-22-2023 ambulatory Trevor Forte MD Facility:[facility] Start: 11-17-2023 End: 11-17-2023 ambulatory RAUL SUN Facility:[facility] Start: 10-24-2023 End: 10-24-2023 ambulatory RAUL SUN Facility:[facility] Start: 10-24-2023 End: 10-24-2023 Patient encounter procedure Ale Hickman MD Work Phone: Urology Comment on above: Elevated prostate sp ecific antigen (PSA) (Primary Dx); BPH without obstruction/lower urinary tract symptoms Start: 10-21-2023 End: 10-21-2023 ambulatory [facility] Start: 09-21-2023 End: 09-21-2023 ambulatory [facility] Start: 08-26-2023 End: 08-26-2023 ambulatory DEANNABATON ROUGEDayana [facility] Start: 06-27-2023 End: 06-27-2023 ambulatory RAUL SUN Facility:[facility] Start: 06-06-2023 End: 06-06-2023 ambulatory RAUL SUN Facility:[facility] Start: 06-06-2023 End: 06-06-2023 Patient encounter procedure Marquis Weaver OD Work Phone: Ophthalmology Comment on above: Type 2 diabetes wil itus without retinopathy (HCC) (Primary Dx); Retinal hemorrhage, left eye; Nuclear sclerotic cataract of right eye; Pseudophakia, left eye; History of YAG laser capsulotomy of lens, left; History of retinal detachment Start: 03-02-2023 ambulatory KRISSY GRAY Facility :[facility] Start: 03-02-2023 End: 03-02-2023 Patient encounter procedure Krissy Gray MD Work Phone: Ophthalmology Comment on above: OPENED IN ERROR (Jocelyne reji Dx) Start: 10-26-2022 End: 10-27-[address] JF SANCHES . Facility: Start: 10-15-2022 End: 10-16-2022 ambulatory Jf SANCHES Facility:[facility] Start: 10-15-2022 End: 10-16-2022 ambulatory Jf SANCHES Facility:[facility] Start: 10-15-2022 End: 10-15-2022 Lab Drop off Jf SANCHES [facility] Start: 10-15-2022 End: 10-15-2022 Patient encounter procedure Jf SANCHES [facility] Start: 07-14-2022 End: 07-14-2022 ambulatory Daina Judge Facility:[facility] Start: 07-14-2022 End: 07-14-2022 ambulatory NEUROBIOLOGIST-C Daina Judge Work Phone: [facility] Work Phone: Start: 07-14-2022 End: 07-14-2022 Patient encounter procedure NEUROBIOLOGIST-C Daina Judge Work Phone: [facility] [place] Start: 06-28-2022 End: 06-29-2022 ambulatory Jf SANCHES Facility: [place] Start: 06-28-2022 End: 06-28-2022 Patient encounter procedure Jf SANCHES [facility] Start: 06-16-2022 End: 06-16-2022 Patient encounter procedure [...] above: Performed By: #### P SAD #### [facility] [address] [place] [address] Dr. Zaira Benoit Start: 06-16-2022 Post-cataract laser surgery Krissy Gray MD Work Phone: Start: 05-12-[address] ZOLTAN SANCHES . Comment on above: Performed By: #### P SASC #### [facility] [address] [place] [address] Dr. Zaira Benoit Start: 02-17-2022 Computerized ophthal [...] PM EDT Office Visit [facility] [address] [place] [address] Marquis Weaver, OD [address] [place] [address] Annual Full Eye Exam with Mac OCT Ophthalmology Comment on above: Annual Full Eye Exam with Mac OCT Start: 12-26-2024 Glaucoma screening Dilated Retinal E xam [facility] Start: 06-27-2024 Glaucoma screening Dilated Retinal E xam [facility] Start: 06-06-2024 Hepatitis C antibody , confirmatory test Dilated Retinal Exam [facility] Start: 04-22-2024 Influenza vaccination Influenz a Vaccine (Season Ended) [facility] Start: 12-27-2023 End: 12-27-2023 Patient encounter procedure 12/27/2023 1:00 PM EDT Office Visit [facility] [address] [place] [address] Marquis Weaver, OD [address] [place] [address] RTC 6 months Dilate and oct [facility] Comment on above: RTC 6 months Dilate and oct [facility] Start: 11-24-2023 End: 02-23-2024 Prostate specific Ag [Mass/volume] in Serum or Plasma PSA/PROSTSPECAG DIAG Lab Routine Elevated prostate specific antigen (PSA) BPH without obstruction/lower urinary tract symptoms Expected: 11/24/2023 (Approximate), Expires: 02/23/2024 [facility] Work Phone: Comment on above: Expected: 11/24/2023 (Approximate), Expires: 02/23/2024 Start: 08-22-2023 Advance Directive Discussion Advance Directive Discussion [facility] Start: 08-22-2023 Behavioral Health Screening Behavioral Health Screening [facility] Start: 08-22-2023 Depression Assessment Depression Ass essment [facility] Start: 06-16-2023 Hepatitis C antibody , confirmatory test DILATED RETINAL EXAM [facility] Start: 04-22-2023 Covid-19 Vaccine () Covid-19 Vaccine ( season) [facility] Start: 04-22-2023 Influenza vaccination [facility] Start: 03-01-2023 Hepatitis C antibody , confirmatory test DILATED RETINAL EXAM [facility] Start: 02-17-2023 Hepatitis C antibody , confirmatory test DILATED RETINAL EXAM [facility] Start: 12-11-2022 COVID-19 VACCINE (5 - Pfizer series) COVID-19 VACCINE (5 - Pfizer series) [facility] Start: 08-22-2022 ADVANCE DIRECTIVE DISCUSSION ADVANCE DIRECTIVE DISCUSSION [facility] Start: 08-22-2022 DEPRESSION ASSESSMENT DEPRESSION ASS ESSMENT [facility] Start: 05-07-2022 COVID-19 VACCINE (4 - Booster for Pfizer series) COVID-19 VACCINE (4 - Booster for Pfizer series) [facility] Start: 04-22-2022 Influenza vaccination C [facility] Start: 08-22-2021 ADVANCE DIRECTIVE DISCUSSION ADVANCE DIRECTIVE DISCUSSION [facility] Start: 08-22-2021 DEPRESSION ASSESSMENT DEPRESSION ASS ESSMENT [facility] Start: 04-16-2021 COVID-19 VACCINE (3 - Booster for Pfizer series) COVID-19 VACCINE (3 - Booster for Pfizer series) [facility] Start: 07-25-2020 COLORECTAL CANCER SCREENING COLORECTAL CANCER SCREENING [facility] Start: 07-25-2020 FECAL OCCULT BLOOD FECAL OCCULT BLOO D [facility] Start: 07-25-2020 Hepatitis B screening URINE ALBUMIN:CREATININE RATIO [facility] Start: 07-25-2020 Hepatitis B surface antibody level LDL CHOLESTEROL [facility] Start: 07-25-2020 Screening for malign ant neoplasm of colon [facility] Start: 01-24-2020 Hemoglobin A1c measurement HbA1C [facility] Start: 01-24-2020 Hemoglobin A1c/Hemoglobin.total in Blood HBA1C [facility] Start: 2009 Hepatitis B Vaccine (1 of 3 - Risk 3-dose series) Hepatitis B Vaccine (1 of 3 - Risk 3-dose series) [facility] Start: 2009 RSV Vaccine (1 - 1-d ose 60+ series) RSV Vaccine (1 - 1-dose 60+ series) [facility] Start: 11-27-1999 SHINGRIX VACCINE (1 of 2) SHINGRIX VACCINE (1 of 2) [facility] Start: 1994 COLOGUARD (FIT-DNA) COLOGUARD (FIT-D NA) [facility] Start: 1994 Colonoscopy COLONOSCOPY [facility] Start: [address] COLONOGRAPHY [facility] Start: 1994 Screening for malign ant neoplasm of colon [facility] Start: 1994 SIGMOIDOSCOPY SIGMOIDOSCOPY [facility] Start: 1968 Urine microalbumin profile [facility] Start: 11-27-1967 ANNUAL PCP TEAM SOUND ASSISTANT GERSON DISEASE VISIT ANNUAL PCP TEAM CHRONIC DISEASE VISIT [facility] Start: 11-27-1967 HEPATITIS C SCREENING HEPATITIS C [facility] Start: 11-27-1967 Hepatitis C screening Hepatitis C [facility] Start: 1961 Adult depression screening assessment DEPRESSION SCREENING [facility] Start: 11-27-1959 3 comp foot exam completed DIABETIC FOOT EXAM [facility] Start: 11-27-1959 Diabetic foot examination Diabetic Foot Exam [facility] Start: 11-27-1955 Pneumococcal Vaccine : 65+ (1 - PCV) Pneumococcal Vaccine: 65+ (1 - PCV) [facility] Start: 11-27-1955 Pneumococcal Vaccine : 65+ (1 of 2 - PCV) Pneumococcal Vaccine: 65+ (1 of 2 - PCV) [facility] Start: 11-27-1955 PNEUMOCOCCAL: 65+ (1 - PCV) PNEUMOCOCCAL: 65+ (1 - PCV) [facility] Start: 1949 ABDOMINAL AORTIC ANEURYSM SCREENING ABDOMINAL AORTIC ANEURYSM SCREENING [facility] Start: 1950 Abdominal aortic aneurysm screening Abdominal Aortic Aneurysm Screening [facility] Immunizations Immunization Date Immunization Notes Care Provider Rosalind alvares 03-12-2022 SARS-CoV-2 mRNA ([id number] se) vaccine Jf SANCHES [facility] Comment on above: Result Comment: 2021: [id number] 11-14-2020 COVID-19 vaccine, ag e 12+ yr (PFIZER-BIONTECH - PURPLE TOP) Krissy Gray MD Work Phone: [facility] Comment on above: Result Comment: 2021: [id number] 10-24-2020 COVID-19 vaccine, ag e 12+ yr (PFIZER-BIONTECH - PURPLE TOP) Krissy Gray MD Work Phone: [facility] Comment on above: Result Comment: 2021: [id number] Payers Date Payer Category Payer Self-pay 2017 Unknown [employer]THEM [employer] S AND BLUE SHIELD [employer]M MEDIBL[employer] HMO [id number] 2017-Present [phone] [address] [place] [address] O [id number] 2017 Unknown [id number] 1959 Medicare [id number] 1949 Unknown [id number] 1949 Unknown [id number] 1949 Unknown [id number] 1949 Unknown [id number] 1949 Unknown [id number] 1949 Unknown [id number] 1949 Unknown [id number] 1949 Unknown [id number] 1949 Unknown [id number] 1949 Unknown [id number] 1949 Unknown [id number] Medicare Medicare [id number] Unknown [id number] Social History Date Type Detail Facility Start: 11-03-2016 End: 06-16-2022 Tobacco smoking status NHIS Smokes tobacco daily [facility] History of tobacco use Cigarette Smoker C [facility] Start: 11-03-2016 End: 10-24-2023 Cigarettes smoked current (pack per day) - Reported 1 [facility] Start: 11-03-2016 End: 06-16-2022 Tobacco use and exposure Smokeless tobacco non-user [facility] Start: 02-17-2022 End: 12-27-2023 Alcohol intake Current drinker of alcohol (finding) [facility] Start: 11-20-2018 History SDOH Alcohol Comment per day [facility] Start: 1950 Sex Assigned At Not on file [facility] Start: 06-28-2022 End: 10-15-2022 Tobacco smoking status Heavy tobacco smoker (finding) [facility] Start: 06-16-2022 End: 10-24-2023 Sex Assigned At Male [facility] Start: 1950 Sex Assigned At Male [facility] National Score (1-10 0), lower number is lower risk 87 [facility] Medical Equipment Procedure Code Equipment Code Equipment Origin al Text Equipment Identifier Dates Lens Acrysof Iq +19.5 Diopter Natural Stableforce 0 D Biconvex 118.7 - [id number] Start: 02-07-2017 Functional Status Date Assessment Result Facility 10-15-2022 Functional Status N/A [facility] 06-28-2022 Functional Status N/A [facility] Clinical Notes 02-17-2022 to 02-09-2024 Marquis Weaver, JOEL - 12/27/2023 1:40 PM EDTTelephone Encounter - Ale Hickman MD - 12/13/2023 5:40 PM EDTTelephone Encounter - Ale Hickman MD - 12/13/2023 5:40 PM EDTPatient Instructions Note Date & Type Note Facility 02-09-2024 Note Greatly improved wit h increased dose of lasix. Trace edema noted today Renal function stable [facility] 02-09-2024 Note Hypertension is unch anged- stable well controlled Continue current treatment regimen. Dietary sodium restriction. Continue current medications. Blood pressure will be reassessed at the next regular appointment. [facility] 02-09-2024 Note Recommended smoking cessation after 5 min discussion and pt declined [facility] 02-09-2024 Note Patient here for 3 m [...] All other systems reviewed and are negative. [facility] 02-09-2024 Note [facility]TP CARDIOLOGY PROGR ESS NOTE [...] noted today Renal function stable RTC 6months [facility] 12-27-2023 Note HNO ID: [id number] Author: MARQUIS WEAVER OD Service: ? Author Type: SENIOR PRODUCT CONSULTANT Type: Progress Notes Filed: 12/27/2023 13:45 Note [...] Stable Monitor December 27, 2023 1:40 PM [facility] 12-27-2023 Note Date of Procedure 12/27/2023. [...] 2023 1:40 PM documented in this encounter [facility] 12-13-2023 Telephone encounter Note Please call again and update me Please notify patient that his PSA is rising from 9 to 10.6 He needs prostate bx Can be done in office under local anesthesia or in ASC under MAC ( [place] [facility]) He can come to picker and packer flyer on prostate bx To schedule office visit to discuss prostate bx if he wishes Ale Hickman MD [facility] Work Phone: 12-13-2023 Miscellaneous Notes Please call again and update me Please notify patient that his PSA is rising from 9 to 10.6 He needs prostate bx Can be done in office under local anesthesia or in ASC under MAC ( [place] [facility]) He can come to picker and packer flyer on prostate bx To schedule office visit to discuss prostate bx if he wishes Ale Hickman MD documented in this encounter [facility] 12-08-2023 Miscellaneous Notes Phone visit unsuccessful and had only VOICE MAIL X 2 I DID NOT LEAVE A MESSAGE Please notify patient that his PSA is rising from 9 to 10.6 He needs prostate bx Can be done in office under local anesthesia or in ASC under MAC ( [place] sleep) He can come to picker and packer flyer on prostate bx To update me Ale Hickman MD documented in this encounter [facility] 12-08-2023 Note HNO ID: [id number] Author: ?, ?, ? Service: ? Author Type: ? Type: Progress Notes Filed: 12/08/2023 14:51 Note Text: 72 year old male with nuclear sclerotic senile, ERM, pseudophakia here today for elevated PSA. PSA PSA PSA, PERCENT FREE Latest Ref Rng <2.60 ng/mL % 07/25/2019 5.33 (H) 6 5.34 (H) 11/17/2023 10.58 (H) Attempted to call patient at 2:41. No answer. [facility] 12-08-2023 History of Present illness Narrative 72 year old male with nuclear sclerotic senile, ERM, pseudophakia here today for elevated PSA. PSA PSA PSA, PERCENT FREE Latest Ref Rng <2.60 ng/mL % 07/25/2019 5.33 (H) 6 5.34 (H) 11/17/2023 10.58 (H) Attempted to call patient at 2:41. No answer. documented in this encounter [facility] 10-24-2023 Note HNO ID: [id number] Author: ?, ?, ? Service: ? Author Type: ? Type: Progress Notes Filed: 10/24/2023 15:09 Note Text: Gianfranco Martin [address] [place] [address] 72 year old male with nuclear sclerotic [...] 2007 Retinal detachment, left eye, repaired in [place], [place] PAST SURGICAL HISTORY OF hernia sx, [...] nontender, w/o nodules. Good anal sphincter tone. [facility] SY[facility]TOM[facility] SCORE. Date 10/24/2023 1. [...] the services describe (more content not included)... [facility] 10-24-2023 Instructions Raven Babcock - 10/24/2023 3:05 PM EST -PSA in 4 weeks at [facility] lab -Schedule telephone visit in 5 weeks to discuss PSA blood test documented in this encounter [facility] 10-24-2023 History of Present [place] [address] 72 year old male with nuclear sclerotic [...] 2007 Retinal detachment, left eye, repaired in [place], [place] PAST SURGICAL HISTORY OF hernia sx, [...] nontender, w/o nodules. Good anal sphincter tone. [facility] SYMPTOMS SCORE. Date 10/24/2023 1. [...] Ale Hickman M.D. documented in this encounter [facility] 10-21-2023 Note PCP increased lasix to 40 mg daily, and I started aldactone at last visit. Renal function remains normal [facility] 10-21-2023 Note Patient is unsure of his medications, why he takes each med and sometimes not sure if he is taking them once or twice a day [facility] 10-21-2023 Note Hypertension is stil l elevated and leg swelling pt states is unchanged Resume norvasc 5 mg daily, continue atenolol, losartan bid, aldactone and lasix [facility] 10-21-2023 Note Patient here for 1 m [...] All other systems reviewed and are negative. [facility] 10-21-2023 Note [facility] CARDIOLOGY PROGR ESS NOTE [...] reason for each medication that he takes. [facility] 09-21-2023 Note Start aldactone and continue lasix 40 mg daily Repeat bmp 1 week [facility] 09-21-2023 Note Hypertension is unco ntrolled, and with leg swelling/edema asked pt to stop norvasc and start aldactone. Repeat labs in 1 week and to notify office for any concerns/ side effects- muscle cramps, tenderness. Pt does not check b/p at home [facility] 09-21-2023 Note Recommended smoking cessation- pt is not agreeable at this time [facility] 09-21-2023 Note Reports WILLAMS, noted w eight [...] week to check renal function and electrolytes. [facility] 09-21-2023 Note [facility] CARDIOLOGY PROGR ESS NOTE [...] and he may proceed with physical therapy. [facility] 09-21-2023 Note Patient here for car diac [...] All other systems reviewed and are negative. [facility] 08-26-2023 Note Cardiology Clinic No te Chief [...] time -Optimize med (more content not included)... [facility] 08-26-2023 Note New patient here to establish care. Ref from Daina Judge CNP for hypertension. She ordered stress test recently but he was unable to complete it due to inability to lie flat. He smokes 1.5 PPD and drinks about 5 beers daily. Denies chest pain, palpitations, and lightheadedness. Says his LE are always taut and swollen. [facility] 06-27-2023 Note HNO ID: [id number] Author: Kenyon Angel OD Service: ? Author Type: SENIOR PRODUCT CONSULTANT Type: Progress Notes Filed: 06/27/2023 1:37 PM [...] Angel, OD June 27, 2023 1:37 PM [facility] 06-06-2023 Note HNO ID: [id number] Author: Marquis Weaver OD Service: ? Author Type: SENIOR PRODUCT CONSULTANT Type: Progress Notes Filed: 06/06/2023 2:29 PM [...] Weaver, OD June 06, 2023 2:22 PM [facility] 06-06-2023 History of Present illness Narrative [...] 2023 2:22 PM documented in this encounter [facility] 10-15-2022 Hospital Discharge instructions Patient Education [...] one of these risk factors: ?Being of -[place] descent. ?Having a family history of prostate [...] you: Are older than age 55. Are -[place]. Have a father, brother, or uncle who [...] 05/19/2018 Document Revised: 07/21/2018 Document Reviewed: 05/19/2018 [employer] Patient Education 2019 [employer]. Follow Up Care 10/05/2022 09:16:20 With:SELENA LEONG, Jf Reis, URL Address: [address] [place] [address] [place] [address]- When: Unknown [facility] [place] 06-28-2022 Note Chief Complaint Referral-Elevated PSA [...] [facility] [address], [place] [address] [phone] Additional Instructions: pt will f/u based on [...] Father. Immunizations Vaccine Date Status Comments SARSCoV2 mRNA(toblvecxa-pbra-xrawiq) vac 03/12/2022 Recorded 2022-06-28: TPV70 SARS-CoV-2 (COVID-19) mRNA BNT-162b2 vax 11/14/2020 Recorded 2022-06-28: TPV70 SARS-CoV-2 (COVID-19) mRNA BNT-162b2 vax 10/24/2020 Recorded 2022-06-28: TPV70 Lab Results Test Name Test Result Date/Time PSA, External 6.8 ng/mL 05/20/2022 08:26 EDT PSA, External 8.41 ng/mL 05/12/2022 08:25 EDT Diagnostic Results Test (more content not included)... [facility] Comment on above: Result Comment: Elec tronically [...] urethra. Follow these instructions at home: Take nmhw-srd-jxqgcfq and prescription medicines only as told by [...] 08/08/2006 Document Revised: 07/03/2019 Document Reviewed: 09/12/2017 [employer] Patient Education 2020 NPR. Follow Up Care 05/27/2022 15:25:17 With:SELENA LEONG, Jf Reis, URL Address: [facility] [address] , [place] [address] [phone] When: Unknown [facility] 06-16-2022 History of Present illness Narrative ASSESSMENT/PLAN: [...] Z96.1 -S/P PCIOL Left eye (02/07/17) Aim: [place] by Dr. Ana farnsworth; He states that he is happy using OTC readers and declines appt for refraction with panelbeater 3. Nuclear senile cataract of right eye - ICD9: 366.16, ICD10: H25.11 He is still happy enough with his vision and opts to follow up with Dr. Gray January 2023 for exam/cataract evaluation 4. History of retinal detachment - left eye - ICD9: V12.49, ICD10: Z86.69 history of retinal detachment repair OS 2007 in [place]. [place]. Call/come in for evaluation immediately if [...] Krissy Gray MD documented in this encounter [facility] 03-01-2022 History of Present illness Narrative [...] 2022 4:08 PM documented in this encounter [facility] 02-26-2022 Miscellaneous Notes Called to let patient know we were able to get him an appointment in [place] at 4pm, left message. SENTHIL Ballesteros February 26, 2022 3:[address] Gray and she recommends that he be seen today. Please reach out to Patient to see if we can get appointment. SENTHIL Ballesteros February 26, 2022 2:57 PM documented in this encounter [facility] 02-17-2022 History of Present illness Narrative [...] h/o retinal detachment repair OS 2007 in [place]. Stable. Call/come in for evaluation immediately if [...] eye -S/P PCIOL Left eye (02/07/17) Aim: [place] by Dr. Gray Signs and symptoms of posterior capsular opacification were reviewed. Discussed possible eventual need for Yag laser posterior capsulotomy. Patient is still happy enough with vision, so declines Yag procedure for now. stable; he remains happy with his vision OS and with OTC readers If he wishes to get new glasses, previously offered an undilated refraction with our optometrists in [place]; he was told that vision with new glasses would not be perfect due to cataract OD; he also has mild PCO OS and Epiretinal membrane OS. He sees a nurse practitioner in [place] Offered for him to establish with a F emergency room clinician in [place] Return to clinic in 12 months for [...] Gray MD 02/17/22 documented in this encounter [facility] Evaluation + Plan note No data available for this section [facility] Evaluation note Diagnosis Nuclear senile cataract of [...] by other means [facility] Diagnosis 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, left- [...] both upper eyelids [facility] Diagnosis 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, left- [...] stated as uncontrolled [facility] noteNo assessment information availableSt. Charles [facility] Work Phone: Evaluation note* Diagnosis OPENED IN ERROR- Primary To allow closing an encounter opened in error (used in SmartSet) [facility]* Diagnosis Type 2 diabetes [...] and sense organs [facility] Diagnosis Elevated prostate specific antigen (PSA)- Primary BPH without obstruction/lower urinary tract symptoms Hypertrophy of prostate without urinary obstruction and other lower urinary tract symptoms (LUTS) [facility] Diagnosis Elevated prostate specific antigen (PSA)- Primary APPOINTMENT CANCELLED Retinal hemorrhage, left eye- Primary Retinal hemorrhage History of retinal detachment Personal history of other disorders of nervous system and sense organs Epiretinal membrane (ERM) of left eye [facility] Diagnosis Retinal hemorrhage, left eye- Primary Retinal hemorrhage History of retinal detachment Personal history of other disorders of nervous system and sense organs Epiretinal membrane (ERM) of left eye Nuclear senile cataract of right eye Pseudophakia, left eye Lens replaced by other means History of YAG laser capsulotomy of lens, left documented in this encounter [facility] Discharge instructions No data available for this section [facility] No data available for this section [facility] [place] Medications Administered Section Active Administered Medications - up to 3 most recent administrations Medication Order MAR Action Action Date Dose Rate Site fluorescein-benoxinate 0.25-0.4 % 1 Drop (FLURESS) 1 Drop, BOTH EYES, DIRECTED, Starting on Tue02/17/22 at 1330, Until Tue02/18/22 at 0129, Administer for applanation tonometry. In the event of a Fluress shortage, administer 1 drop of [place]-Fluor into both eyes as directed for applanation [...] the event of a Fluress shortage, administer [place]-Fluor 1 drop into both eyes as directed [...] FoundDocuments on File Type Date Recorded Patient Access Services Representative Expl anation Advance Directive(s) 02/07/2017 9:56 AM [...] or prosecute any alcohol or drug abuse patient.[facility] the event this information is protected by the Federal Confidentiality of Alcohol and Drug Abuse Patient Records regulations: The Federal rules restrict any use of the information to criminally investigate or prosecute any alcohol or drug abuse patient.[facility] the event this information is protected by the Federal Confidentiality of Alcohol and Drug Abuse Patient Records regulations: The Federal rules restrict any use of the information to criminally investigate or prosecute any alcohol or drug abuse patient.[facility] the event this information is protected by the Federal Confidentiality of Alcohol and Drug Abuse Patient Records regulations: The Federal rules restrict any use of the information to criminally investigate or prosecute any alcohol or drug abuse patient.[facility] the event this information is protected by the Federal Confidentiality of Alcohol and Drug Abuse Patient Records regulations: The Federal rules restrict any use of the information to criminally investigate or prosecute any alcohol or drug abuse patient.[facility] the event this information is protected by the Federal Confidentiality of Alcohol and Drug Abuse Patient Records regulations: The Federal rules restrict any use of the information to criminally investigate or prosecute any alcohol or drug abuse patient.[facility] the event this information is protected by the Federal Confidentiality of Alcohol and Drug Abuse Patient Records regulations: The Federal rules restrict any use of the information to criminally investigate or prosecute any alcohol or drug abuse patient.[facility] the event this information is protected by the Federal Confidentiality of Alcohol and Drug Abuse Patient Records regulations: The Federal rules restrict any use of the information to criminally investigate or prosecute any alcohol or drug abuse patient.[facility] Hospital[facility] the event this information is protected by the Federal Confidentiality of Alcohol and Drug Abuse Patient Records regulations: The Federal rules restrict any use of the information to criminally investigate or prosecute any alcohol or drug abuse patient.[facility] the event this information is protected by the Federal Confidentiality of Alcohol and Drug Abuse Patient Records regulations: The Federal rules restrict any use of the information to criminally investigate or prosecute any alcohol or drug abuse patient.[facility] the event this information is protected by the Federal Confidentiality of Alcohol and Drug Abuse Patient Records regulations: The Federal rules restrict any use of the information to criminally investigate or prosecute any alcohol or drug abuse patient.[facility] Reason for Visit (unrecogniz ed section [...] Care Teams (unrecognized sec tion and content) Impregnator And Drier Relationship Specialty Start Date End Date Raul Sun MD PCP - General Family Practice 02/11/21 Impregnator And Drier Relationship Specialty Start Date End Date Raul Sun MD PCP - General Family Practice 02/11/21 Impregnator And Drier Relationship Specialty Start Date End Date Raul Sun MD PCP - General Family Practice 02/11/21 Impregnator And Drier Relationship Specialty Start Date End Date Raul Sun MD PCP - General Family Medicine 02/11/21 Team Status: Inactive Member Role Status Dates Jf aSnches MD Attending Provider Active AMMY Darling Primary Care Provider Active Team Status: Active Member Role Status Dates NILESH DarlingC Primary Care Provider Active Impregnator And Drier Relationship Specialty Start Date End Date Raul Sun MD PCP - General Family Medicine 02/11/21 Impregnator And Drier Relationship Specialty Start Date End Date Raul Sun MD PCP - General Family Medicine 02/11/21 Impregnator And Drier Relationship Specialty Start Date End Date Raul Sun MD PCP - General Family Medicine 02/11/21 Daina Judge CNP [address] [place] [address] Referring Internal Medicine 10/15/23 Impregnator And Drier Relationship Specialty Start Date End Date Raul Sun MD PCP - General Family Medicine 02/11/21 Daina Judge CNP [address] [place] [address] Referring Internal Medicine 10/15/23 Impregnator And Drier Relationship Specialty Start Date End Date Raul Sun MD PCP - General Family Medicine 02/11/21 Daina Judge CNP [address] [place], [place] [id number] Referring Internal Medicine 10/15/23 Goals (unrecognized section and content) Goals may be documented in a n alternate section (unrecognized sect ion and content) No Status Records FoundNo Status Records FoundNo Status Records FoundNo Status Records FoundNo Status Records FoundNo Status Records FoundNo Status Records Found INFORMATION SOURCE (unrecogn ized section and content) DATE CREATED AUTHOR 07/29/2022 [facility] DATE CREATED AUTHOR AUTHOR'S ORGANIZ ATION 10/28/2022 [facility] DATE CREATED AUTHOR AUTHOR'S ORGANIZ ATION 12/01/2022 [facility] DATE CREATED AUTHOR AUTHOR'S ORGANIZ ATION 12/28/2023 [facility] DATE CREATED AUTHOR AUTHOR'S ORGANIZ ATION 01/01/2024 [facility] DATE CREATED AUTHOR AUTHOR'S ORGANIZ ATION 02/11/2024 [facility] DATE CREATED AUTHOR AUTHOR'S ORGANIZ ATION 03/10/2024 [facility] dical Specialists [facility] FOR RECORDS PERTAINING TO PATIENTS [...] BE BASED ON THE PRIMARY CLINICAL RECORDS. [facility]. provides no warranty or guarantee of the accuracy or completeness of information in this document.
[2024-05-25 16:11] LABS: Alanine Aminotransferase 32 U/L (16-63); Albumin Globulin Ratio 1.2; Alkaline Phosphatase 79 U/L (46-116); Anion Gap 13.6; Aspartate Amino Transferase 26 U/L (15-37); BUN Creatinine Ratio 6.7; Bilirubin Total 0.6 mg/dL (0.2-1.0); Calcium 9.1 mg/dL (8.5-10.1); Carbon Dioxide 25.9 mmol/L (21.0-32.0); Chloride 89 mmol/L (98-107); Estimated GFR (African America >60 (>=60 mL/min/1.73m^2); Estimated GFR (Non-African Ame 52 (>=60 mL/min/1.73m^2); Globulin 3.4 g/dL; Glucose 123 mg/dL (74-106); Potassium 4.5 mmol/L (3.5-5.1); Total Protein 7.4 g/dL (6.4-8.2)
[2024-05-25 16:16] LABS: Sodium 124 mmol/L (136-145)
== END 2024-05-25 14:59 | disposition home or self-care (01) ==
LOC: LAB 14:59
PROVIDERS: PCP Nurse Practitioner Family; Visit Provider Nurse Practitioner Family
DX: E87.1 Hypo-osmolality and hyponatremia (principal); I10 Essential (primary) hypertension
CPT/HCPCS: 36415; 80053

== ENCOUNTER 2024-06-01 15:06 | Outpatient (OUT) | payer MEDICARE, SELFPAY ==
--- OUTSIDE RECORDS SUMMARY | 2024-06-01 15:12 | XMS_ITS | CCD ---
Author Organization [facility] Care Team Providers Care Support Dba Name Role Phone Raul Sun MD Primary Care Provider [phone] DAINA JUDGE Primary Care Physician MD Jf Sanches Attending Provider [phone] AMMY Judge Primary Care Provider Daina Judge Primary Care Unavailable Jf Sanches Attending Unavailable Jf Sanches Admitting Unavailable SELENA ., DR RHOADES Admitting Unavailable SELENA ., DR RHOADES Attending Unavailable DAINA JUDGE Primary Care Unavailable SELENA ., DR RHOADES Consulting Unavailable DAINA JUDGE Admitting Unavailable DAINA JUDGE Attending Unavailable DAINA JUDGE Primary Care Unavailable DAINA JUDGE Consulting Unavailable DAINA JUDGE Admitting Unavailable DAINA JUDGE Attending Unavailable DAINA JUDGE Primary Care Unavailable ADINA JUDGE Consulting Unavailable Jf SANCHES Attending Unavailable Jf SANCHES Attending Unavailable DAINA JUDGE Referring Unavailable Jf SANCHES Attending Unavailable Jf SANCHES Admitting Unavailable Raul Sun MD Primary Care Provider Daina Judge CNP Unavailable Raul Sun MD Primary Care Provider [phone] Reanna LEONG, Trevor Kruger Attending Unavailable Trevor Forte MD Attending Unavailable HILDA HA Attending Unavailable HILDA HA Attending Unavailable FABRIZIO MACIAS Attending Unavailable HILDA HA Attending Unavailable KAIA EGAN Attending Unavailable KADY CROW Attending Unavailable ROGERIO LANE Attending Unavailable RAUL SUN Primary Care Unavailable ALE HICKMAN Attending Unavailable RAUL SUN Primary Care Unavailable KENYON ANGEL Attending Unavailable RAUL SUN Primary Care Unavailable MARQIUS WEAVER Attending Unavaila ALE Antonio Attending Unavailable RAUL SUN Primary Care Unavailable MARQUIS WEAVER Attending UnavailRAUL Spencer Primary Care Unavailable ALE HICKMAN Attending Unavailable RAUL SUN Primary Care Unavailable RAUL SUN Primary Care Unavailable Allergies Allergy Classification Reported Allergen(s) Allergy Type Date of Onset Reaction(s) Facility (15 sources) Penicillins; Translations: [PENICILLINS] Drug Allergy 7 Rash [facility] (5 sources) Penicillin; Translations: [penicillin] Drug Allergy 2 Unknown skin reaction [facility] (1 source) Penicillins Drug allergy (disorder) 2 [facility]ository (1 source) amLODIPine; Translations: [AMLODIPINE] Drug Allergy 4 [facility] Repository Medications Current Medications Medication Drug Class(es) Dates Sig (Normalized) Sig (Original) [id number] 200 actuat albuterol 0.09 mg/actuat metered dose inhaler (8 sources) beta2-Adrenergic Agonist Start: 04-17-2023 albuterol HFA (PROVENTIL HFA, VENTOLIN HFA) 90 mcg/actuation inhaler 04/17/2023 Active amLODIPine 5 mg oral tablet (16 sources) Dihydropyridine Calcium Channel Rosie Start: 01-14-2021 take 1 tablet by mouth once daily amLODIPine (NORVASC) 5 mg tablet Take 5 mg by mouth once daily. 01/14/2021 Active Comment on above: Take 5 mg by mouth o nce daily. atenolol 50 mg oral tablet (16 sources) beta-Adrenergic Rosie Start: 11-02-2018 atenolol (TENORMIN) 50 mg tablet 11/02/2018 Active atorvastatin 10 mg oral tablet (16 sources) HMG-CoA Reductase Inhibitor Start: 02-01-2022 atorvastatin (LIPITOR) 10 mg tablet 02/01/2022 Active busPIRone hydrochloride 5 mg oral tablet (16 sources) Start: 11-02-2018 busPIRone (BUSPAR) 5 mg tablet 11/02/2018 Active cholecalciferol 0.05 mg oral capsule (13 sources) Vitamin D Cholecalciferol, Vitamin D3, 50 mcg (2,000 unit) cap Take by mouth. Active Cholecalciferol, Vitamin D3, (VITAMIN D-3) 2,000 unit cap Take by mouth. 0 Active Comment on above: Take by mouth. diclofenac sodium 75 mg delayed release oral tablet (7 sources) Nonsteroidal Anti-inflammatory Drug Start: 024 take 1 tablet by mouth every twelve hours diclofenac, EC, (VOLTAREN) 75 mg EC tablet Take 1 tablet by mouth every 12 hours. 10/09/2023 Active Comment on above: Take 1 tablet by alejandra th every 12 hours. doxycycline hyclate 50 mg oral capsule (13 sources) Tetracycline-class Drug Start: take 1 capsule by mouth once daily doxycycline (VIBRAMYCIN) 50 mg capsule Take 50 mg by mouth once daily. 01/25/2022 Active Comment on above: Take 50 mg by mouth once daily. FLUoxetine 40 mg oral capsule (13 sources) Serotonin Reuptake Inhibitor take 1 capsule by mouth once daily FLUoxetine HCl (PROZAC) 40 mg capsule Take 40 mg by mouth once daily. Active Comment on above: Take 40 mg by mouth once daily. furosemide 20 mg oral tablet (16 sources) Loop Diuretic Start: 019 furosemide (LASIX) 20 mg tablet 11/02/2018 Active hydroCHLOROthiazide 12.5 mg / losartan potassium 50 mg oral tablet (16 sources) Thiazide Diuretic, Angiotensin 2 Receptor Rosie Start: hydrochlorothiazid e-losartan 12.5 mg-50 mg Tab Refill(s) 0 Start Date: 06/28/22 Status: Ordered Start: 11-02-2018 losartan-hydro chlorothiazide (HYZAAR) 50-12.5 mg per tablet 11/02/2018 Active loratadine 10 mg oral tablet (16 sources) Start: 06-28-2022 take 3 tablets by mouth once daily loratadine 10 mg Tab Oral route, 3 Refill(s), 1 tablet by mouth once a day, Refills(s) 0 Start Date: 06/28/22 Status: Ordered take 1 tablet by mouth once jayde y loratadine (CLARITIN) 10 mg tablet Take 10 mg by mouth once daily. Active Comment on above: Take 10 mg by mouth once daily. metFORMIN hydrochloride 500 mg oral tablet (16 sources) Biguanide Start: 11-02-2018 metFORMIN (GLUCOPHAGE) 500 mg tablet 11/02/2018 Active Minocycline (13 sources) Tetracycline-class Drug MINOCYCLINE HCL (MINOCYCLINE ORAL) Take by mouth. Active MINOCYCLINE HCL (MINOCYCLINE ORAL) Take by mouth. 0 Active Comment on above: Take by mouth. naltrexone hydrochloride 50 mg oral tablet (13 sources) Opioid Antagonist Start: 11-03-19 19 naltrexone (TREXAN) 50 mg tablet 11/02/2018 Active potassium chloride 10 meq extended release oral capsule (7 sources) Start: 09-08-19 24 potassium chloride SR (MICRO-K) 10 mEq CR capsule Take 10 mEq by mouth two times a day. Take with food 09/08/2023 Active Comment on above: Take 10 mEq by mouth two times a day. Take with food spironolactone 25 mg oral tablet (7 sources) Aldosterone Antagonist Start: 09-21-19 take 1 tablet by mouth once daily in the morning spironolactone (ALDACTONE) 25 mg tablet Take 25 mg by mouth every morning. 09/21/2023 Active Comment on above: Take 25 mg by mouth every morning. traZODone hydrochloride 150 mg oral tablet (16 sources) Serotonin Reuptake Inhibitor Start: 06-28-20 traZODONE [...] Onset: 11-10-2016 Chronic Diabetes mellitus without complication (20 sources) Diabetes [...] Depressive disorder 08-08-2019 Chronic Other eye disorders (13 sources) Chorioretinal scar of left eye; Translations: [Unspecified chorioretinal scars, left eye] Onset: 11-10-2016 11-10-2016 Chronic Other eye disorders (2 sources) History of ytgzyct-kxqwveiy-eku net (YAG) laser capsulotomy of lens; Translations: [Cataract extraction status, left eye] 06-06-2023 Episodic Residual codes; unclassified (2 sources) Localized [...] that caused by tuberculosis or sexually transmitteddisease) (13 sources) Blepharitis of upper and lower eyelids of bilateral eyes; Translations: [Unspecified blepharitis right eye, upper and lower eyelids] Onset: 11-10-2016 11-10-2016 Episodic Other eye disorders (5 sources) Excess skin of eyelid; Translations: [Dermatochalasis of right upper eyelid] Onset: 11-10-2016 11-10-2016 Episodic Other eye disorders (9 sources) Dermatochalasis of right upper eyelid; Translations: [Dermatochalasis] Onset: 11-10-2016 11-10-2016 Episodic Other lower respiratory disease (2 sources) Other forms of dyspnea; Translations: [Other forms of dyspnea] Onset: 09-21-2023 Episodic Other nervous system disorders (18 sources) H/O: retinal detachment; Translations: [Personal history of other diseases of the nervous system and sense organs] Onset: 11-10-2016 Episodic Other nervous system disorders (1 source) Personal history of other diseases of the nervous system and sense organs; Translations: [History of retinal detachment] Onset: 11-10-2016 Episodic Other screening for suspected conditions (not mental disorders or infectious disease) (14 sources) Raised prostate specific antigen; Translations: [Elevated prostate specific antigen [PSA]] Onset: 05-24-2022 Episodic Unclassified (1 source) Patient's noncompliance with other medical treatment and regimen due to unspecified reason; Translations: [Patient's noncompliance with other medical treatment and regimen due to unspecified reason] Onset: 10-21-2023 Results Test Name Value Interpretation Reference Range Facility [facility] 05-25-2024 CNPN Telephone (UROLLN) -- GIANFRANCO MARTIN ([id number]) 1950 M Date Time Provider Department 05/25/24 ALE HICKMAN During your visit today, we recorded the following information about you: Ale Hickman MD 05/25/2024 7:18 AM Signed Please notify patient his PSA is very high and he is at high risk of having prostate cancer. he needs to schedule his prostate biopsy unless he had it done else where PSA from [facility] on 05-18-24 = 16.17 (normal values 0-4) Can be done in office under local or in [place] [facility] [place] Sarthak Pham Nicole, LPN 05/25/2024 9:05 AM Signed Call placed to patient in regards to message below. [facility] for patient to return call back to [phone], in regards to his recent lab results and orders on how Dr. Hickman would like to proceed. Niya De León LPN 05/30/2024 9:07 AM Signed Call placed to patient in regards to message below. [facility] for patient to return call to [phone] in regards to lab results and how Dr. Hickman would like him to proceed OR to read the detailed message in his MYC. Niya De León LPN 05/31/2024 12:02 PM Signed Called and spoke to patient in regards to message below. Patient stated that he would like to speak to the doctor before making any decisions. Spoke with Dr. Hickman and he stated since the patient doesn't have a vehicle or know how to use MYC, that he can be scheduled for a telephone visit today at 2pm. Patient agreed and was scheduled as above stated. Allergies As of Date: 05/25/2024 Noted Allergy Reaction PENICILLINS 11/03/2016 2 - Rash Date Reviewed: 12/27/2023 Reviewed by: Marquis Weaver, OD - Fully Assessed Reason for Visit: Results [95] Appointment [186] Prescriptions as of 05/31/2024 - spironolactone (ALDACTONE) 25 mg tablet Take [...] at bedtime. Problem List As Of Date 05/25/2024 Noted Resolved Nuclear senile cataract of right [...] 06/27/2023 Encounter Status:Closed by ALE HICKMAN on 05/25/24 Normal [facility] Office Visiton 02-09-2024 Follow-up visit [id number] Pan Martin 1950 Date Provider Department Center 02/09/2024 HILDA OLIVO Family History Problem Relation Age of Onset Coronary artery disease Father Stroke Father Family Status - Relation Status Age at Father Level of Service:21797 [place] OFFICE/OUTPATIENT ESTABLISHED LOW MDM 20 MIN Normal [facility] OCT MACULA CIRRUS OU (BOTH E YES)on 12-27-2023 [facility] Radiology Study observation (narrative) [facility] Km 12-08-2023 CNPN Telephone (UROLLN) -- GIANFRANCO MARTIN ([id number]) 1950 M Date Time Provider Department 12/08/23 [...] anesthesia or in ASC under MAC ( [place] [facility]) 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 Can you try reaching him again with this information? Thank you, Yue Haley, Hilda Mckeon RN 12/14/2023 10:08 AM Signed Spoke with patient at this time; identified by name and . Discussed with patient below information from Dr. Hickman, as well as the process of the prostate biopsy. Advised patient that I will also sent MC message with detailed information about prostate biopsy. 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 Effect of Verification Bias on Screening for Prostate Cancer by Measurement of Prostatic Specific Antigen. N Engl J Med 2003,349:335-42. Performed By: #### 2 [id number] #### [facility] CLIA [id number] [address] [place], [place] [address] [address] [facility] CNOVon 10-24-2023 CNOV Office Visit (UROLLN ) -- GIANFRANCO MARTIN ([id number]) 1950 M Date Time Provider Department 10/24/23 2:40 PM ALE HICKMAN During your visit today, we recorded the following information about you: Pulse Blood pressure Weight 79/minute 157/66 97.5 kg [place] 10/24/2023 3:09 PM Signed Gianfranco Jordan [facility] [address] 72 year old male with nuclear sclerotic [...] 2007 Retinal detachment, left eye, repaired in [place], [place] PAST SURGICAL HISTORY OF hernia sx, POST-CATARACT LASER SURGERY Left 06/16/2022 YAG Capsulotomy OS by Dr. Perez XCAPSL CTRC RMVL INSJ IO LENS PROSTH W/O ECP Left 02/07/2017 Cataract Extraction with PC IOL OS by Dr. Perez FAMILY HISTORY Problem Relation Age of Onset [...] nontender, w/o nodules. Good anal sphincter tone. [facility] SYMPTOM[facility] SCORE. Date 10/24/2023 1. [...] Moderate By (more content not included)... Normal [facility] 37on 10-21-2023 37 Resume taking norvasc/Amlodipine 5 mg daily for blood pressure Normal [facility] Office Visiton 10-21-2023 Follow-up visit [id number] Pan Martin 1950 M Date Provider Department Center 10/21/2023 120-HILDA HA [facility] Family History Problem Relation Age of Onset Coronary artery disease Father Stroke Father Family Status - Relation Status Age at Father Level of Service:99996 [place] OFFICE/OUTPATIENT ESTABLISHED MOD MDM 30 MIN Normal [facility] 36on 10-06-2023 36 JEANIE Bean MA Labs look good- no concerns= kidney function normal and electrolytes normal Regarding labs done on 10/04/[address] [facility] 37on 09-21-2023 37 Stop amlodipine- and start spironlactone- 1 tab daily. Have blood work drawn about 1 week after starting this new med to check kidney function and electrolytes. Call office for any concerns [facility] Office Visiton 09-21-2023 Follow-up visit [id number] Pan Martin 1950 M Date Provider Department Center 09/21/2023 120-HILDA HA Hos Family History Problem Relation Age of Onset Coronary artery disease Father Stroke Father Family Status - Relation Status Age at Father Level of Service:69843 [place] OFFICE/OUTPATIENT ESTABLISHED MOD MDM [address] [facility] Office Visiton 08-26-2023 Follow-up visit [id number] Pan Martin 1950 M Date Provider Department Center 08/26/2023 3848-FABRIZIO MACIAS Hos Family History Problem Relation Age of Onset Coronary artery disease Father Stroke Father Family Status - Relation Status Age at Father Level of Service:02323 [place] OFFICE/OUTPATIENT NEW LOW MDM [address] [facility] Patient Letter FTon 2022 Patient Letter [facility] (Inserted Image. Prema ble to display) November 30, 2022 [place] [address] GIANFRANCO MARTIN 1950 Dear Gianfranco Martin, Executive [...] Jf Sanches M.D., F.A.C.S. [facility] [address] [place], [place] [address] , OPTION #3 SENT REGULAR/CERTIFIED MAIL Normal [facility] Coding Summary.on 10-27-2022 Coding Summary. CD:[id number] Gh0bWw +PGhlYWQ+UB7GRMCnZ35cgRZcl B6aD0IIKBmKEnmfLDREUNpOPvE qraEfRC9tzUYeHJRw IC8+TZ5vIGVuDouajUWqu8C7jJ W2O93qhi0sZVuutOU3AIVbBmZp rroug4dfpEd8NTvyFwykTyPu DIZjsO61XQO7bE02Fe62yBNgmG Jrm2rfcHt5SfRuPIMyAEZ0bDbl ZOdeg7LvYJIkC66enXCoz4R8 UXWxxRugiHXvQjCowNP9eW8mHJ leexmyx8eyfoqeAjd1ti26mMGw l0M4rUV6A3VrreM9JOUzcWTu TigidTELlG9pncxhp1ogvngmGi FdKYEhPEk5ANz9GVYbfHhnVqYs SJ49HVE8MZEqnvSuI5JlMVXk pHvrWgC4z8R4Tp2HF6QRIdspP2 VNTUFSWTwvdGQ+MU74yv95R8Ul SgdiWsc8JPNpBWX7bDB5xR1r OWFlXOhpv0F1bBS8L0DciyJenl 4hk7xaGLQcLNlhL11psCEqk1M6 LYJzsLW5RNKefRukPsLekS87 Oyc+SHOcdYrst7QhGytuz9rux7 icjFk5YnnkBGYjodUxiOiySBB3 i5IoXo0eYMYbmLB5vFC4pK0o VwPrBuF5KWzyV541XxFlmKOwOf luE42lA7FhmXC+GFYsSef9YTNs sUdoIV4iD2LmXIDzorsqfLJi cMlrHI6pBZZlpuhnCLJuhN5tEY DbD5u0KuOaTdT4PJmcP9WvIGYz jymqZn40kA1lPvUdTrY5WTtk L1YvtqI9YPOpbOLvYUlnMVJ4B4 0lt8I3CFUaVTHnHWF3jAL3qI6a bGlnbjogbGVmdDsgdmVydGlj VDqpJKvzZ242DJVcwFmhRpAvJO luZyBEYXRlOiAgMDMvMDgvMjAy MzwvdGQ+HBFkDWJ6hNwwPZIj oHHhZOvxKl3pgFmjwOcwQS0vCV CrjrpwAVEyrG6nPPAzpCVasHzh BQ8wMOHtwaxbk635KvFcKIB8 ALJsiNPnB8QbrH1iQxYlLRChXZ RpQ9WvyCFlUEtuQ152NLduSkE0 FYCjqmBoR3QsLCPpzHpfQgG5 x0J6Xn4Vc2ZzmzgyM9KspLRsLf AlTrswZRn0A6HsTgvnzQS+PC90 DCRsNN69FKu5FPV2gTdzTIpu TYTfP4PwtE5gYbYuJKEoLEFdIb c+PHRhYmxlIHdpZHRoPScxMDAl QrFzzGqrEB8xBs7tCQEnDYRh iNkfqKZxHbDsa5stPHTtPOzrNJ 5qpAukO1WwnKH9HKGdg9g1Ew45 A10gP6HaoLA+URTwvBL0iWC2 cH2lKzSkYkR8WVlhR513ReUueA BmVpemv1azw1icrOa2CjP3SGYe tbZfvBqlDQJ8b3VpLb52V16a IHdpZHRoPSIxNSUiIHZhbGlnbj 0tuQ8cMx6+FOMdbQB1pPK3rQ0b QgOsQrT9UIkyK665SyVppEMa Mxtif0rrf3hhxQt8MeTcSAEvxu BcyRajKUX1g8SuCn19T8MuuRmz n2RqVbz7mr50eLMix0O6yYQ5 S8KrZWQmroxudBPeoXkoSW6fFB YnoczdSAZrxO4cHUCwN5f6SuKs PkU1EQcjR8AcbgF5MVFfvBQx BLOjoTLWiY6sdskvm8sfwktuKy OzNFKbDCy8CRu7DWMdnGdiAmVc BWL6EuF9PEU6tSWdvM8pwObn xhvpjU4mXtn+ZXT1lIAumCCQRK 1lOjwvdGQ+JJPuYSD9gNqrAVra GYXiyA5zCEMwN6g7IgNxKeL3 IDzvQ5LquhZ6BMJecODyZYEmuG KCtX8emktrc4lietksCbVpEKSq HMl2YKc3JPUezXatNwYrSGY6 SdL0QTQ9gZCwkJ8acQgzdpzznV 9wOyc+KcbggLcxLIU9UQf0L3Ra Eju1MSDnyUucDV3lmNHfVXnq Hr4zyPgecJcsRC0kKRXmxrscl2 55XeDpr5xoAZBwcEKyZGoxCUT3 O01nz3J2ZPAoESTrVWB1jNV2 oC2opBzlgfotsJZsgHxgkhFukK viHZfpLArgY597CLBolWpzUmGm JMd9I4KjBgy1VZAqsJczZI0k zDYvKAzkMs4xdYcnoHugJA6mCB Dsdoktg780WvLpg7ffEMFcqLOr HRtxPSR6G09cr6V5PQTyCFEa WWU1xHU0lH0pqRcyilsleTHnrZ hgxqWrzAymDEnnQUpcE510QRUx qLbqCgQbhRn2O4EcRns5XUDa wFgrQH1hvZTzGDeaXe5voDznyM jdIJ0kFMXsbodcj979QvOuv6wx AEJcpAUjZWsrLRP9H50lu1X0 JTXdGBQxKFB1lEL4kS1htEzasu ogbGVmdDsgdmVydGljYWwtYWxp C557VRKcnHqnYeUjcBiackVo XRvsBNs2W4HhZrmhxAY+PC90YW FjBO87pAPigTYzw4wqzGr1ErGy XBShIHQ3vDypQWqqu5JfTMHh W30qxNGpq7H5FRTlmIorkWZsHl RmfSN1dK7bQDvrchdgy0momfnz Jzsyt2kste54yZ88A49cNPqc XZXmBNIoMSYqTIKblSjfpc1rsK 9wIi8+LVWarXG5gPZ2kP5yNNUe YtB8DEwoA359VaYwfWLjSkta g2uww6qsxHo2FhE6HCOceqNhmP xxGKY7m9QgVx77C73nWRogEOEm XFUuLOBeQHFejAsibq8rnX8m Ii8+EDSlpPF1jLU7aC3rLkBlJj R2JBwzO791DqBebJVuXpufT43u O0YtyDX+EFRgPai0WDIjtKmd TE2zwCSeMBzaRt0tCEI1LuVrBy LnGJyrZ2ZaWMXrohiduhcwaQD5 HGQnSDXoqG83Tf0oyXuhNSQr zCBGaC7wnjxax8mqddkoVfTiZX VkTFz4CYc4QKSfgNzbAwOyEYZ2 TkJ0OVE8sWQkcJ6kpVwnvtuy lV1rQ6KdLFGnwabxAj79sH3uEj EgZnW0COgvAew+UFVMTEFOTywg LydRN0zLGnnwcJU+PHRkIHN0 aCqtDPbaAKZzqE8yTJQcX0k6Kk YeAmO9OJapL8GrXXGbmnwjLt18 jV7bVtHzCoI7JLhlY2FolbF4 CJXsfNTgZCwbQCN3W56vd6T9WX NzUBIgFBL7oQF8rM1bwBpotngm bGVmdDsgdmVydGljYWwtYWxp D556BZKntIntLxQ0IrT0YkH8BE W6W4RbVyk1BPBxlVztDP4btTFg MViaGh7krEohvLsfFM0vVAKk kqhkMJTemY9hKLIlxKUhoEprSA 9gCLFthvxkn353ZaQyCCQ3KQDg aTNxN6AkcX3rUjTkHCQgWGNl I3HcsZBfCEuoU171KWodYcZ2SS MnmoNsK8EiWYAsfPpbGzX3b1A4 Nv00GzFIPPBrydearHD+PHRk MQM2uBspZAjqCMQbiE2kUARsA2 e6MsVjBeI2IQitI1RuSRYxidth Sh34dA5oXxYgGwD7OZfxT6Wl xhI4NPKpwEPpARngLNW1N80xi8 Y4IVJzZHZgLLC1iHE4mF2ohLhq bjogbGVmdDsgdmVydGljYWwt BSaxZ946VKLolHinDz2tfFB0W1 MdZmh4ACLlwJepXC0rmDZnIFrp Pw8mwAgwgOkaIA4jWVPmyumx AYFotW6lSHEjxPTfjQlkHS6gIH Jbvlbvf117VcYlXRL6DBTljEEr M1ThmX3fQiYfVQBlRBYvK0Tn xPDwXAgtX667LAnwFwI4IMCtgq CrA9AkVUSgcVsgDoD1t7Z5Oq7U IUMkEBEbqADqNqV4O4QqEalc dHI+FG22PCWbCV97pTGscLWik0 drkNf1WuOqSMQlUAA1yWwbKSvj w6JmOAUxU31lyAMbn6B8HMCm eJweeORwHrSckUX7cX5eXJebjg sgz4faareqYfwmi2guen85tV00 F13iUIbnJMOrPIKrFSAhNWDu mHhbmv0mrM8sId4+FXEadZX5zT B3lR8pQjAoMaQ4CZgyG052HxJo iTKjUmjib9nnn5mbpAg5CfAy RHLazdCluFitLNG7m7GzXd24U0 9sIHdpZHRoPSIyMCUiIHZhbGln gu4uzM7iEb5+KJ2se4zlbn05 hF50iAS+INPiBES3dYzkPZndTO NyeK2kKQhmTdK2PKHhHtVqkC56 cDAhPIseOa2xmJojaQzvSF9a EMCowfxjb280VgRdh1rmTVGtpS IzWJzsFKV7W39gb4N9FBOfYQNk QBU8nBA3gL7qyAdtlexzjMZk kQnapqDbzOupXQomYAuoR837GJ DgiVjaKcOcgITfP1wngpRGVH5c OjwvdGQ+MPRdDWT5zLzkQZig HLYatZ5fCAYyI5g0MtEkDoX0IP fzA6AhhsE6GVHmqIKfCJXrgGXF lA6savsfk5rltafdBfTcBAIg NDs0NQn4YWGuxLsyRsKeHLH0Yj E1LJX3eFWafH5ldFfdlmdxdJ4t Oyc+RklOOjwvdGQ+PHRkIHN0 gRtoOYrcYVScaC0vOVUrJ2r5Qy TyUqO9FBkwC5BoteQ8JSQaqRKn KRVqdQKDeP7wbiniv4mwyjin CyDuMHOtTUu2YQb2FEHexOzeJk GwZUO3TiF4BVV8iBXruA1ooBck wbgbrK1jCew+TVJOOjwvdGQ+ UCFrILP4iFmtKLqcIRIqdY5oRS GyG2v9EeGnZkM8XFwcR7NdqmD8 FSAhaFMyOHKztESGzL3inohe u9bvevyoEuIvVMZuIPw0CFg8DJ FhhHupJnJzIFG1BhO2TVG8eKQm mH3knJeqhnnwpC2mReh+UGF5 HAZ1ML11VY16C9CvOjqvyZLrvL U+PHRhYmxlIHdpZHRoPScxMDAl QiZqpAqfOW5pTv8tPUPkIVDz bGxh (more content not included)... Normal [facility] Lab Reportson 10-27-2022 Lab Reports [id number]:[id number] [facility] Ambulatory Visit Summaryon 0 10-15-2022 Ambulatory Visit Summary [place] :1950 Visit Date:10/15/2022 Ambulatory Visit Instructions Your Diagnosis Elevated PSA Benign prostatic hyperplasia (BPH) with post-void dribbling Tests Performed Urnls Dip Stick Auto w/o Microscopy POC 90984 Your Care Team Attending Physician - Jf [...] with SELENA LEONG, STEFANI Seo When: Where: [address] [place] [address]- Medications What When Instructions Unchanged amlodipine (amLODIPine [...] Urnls Dip Stick Auto w/o Microscopy POC 69068 (10/15/2022) Bilirubin Urine Dipstick - Negative Blood Urine Dipstick - Negative Glucose Urine Dipstick - Negative Ketones Urine Dipstick - Negative Leukocytes Urine Dipstick - Negative Nitrite Urine Dipstick - Negative Protein Urine Dipstick - Negative Specific [place] Urine Dipstick - 1.010 Urine Appearance Urine [...] of these risk factors: ? Being of -[place] descent. ? Having a family history of prostate cancer. ? If you are age 55?69, talk with your health care provider about (more content not included)... Normal [facility] Patient Educationon 10-15-19 Patient Education Oncology [...] of these risk factors: ? Being of -[place] descent. ? Having a family history of [...] Are older than age 55. ? Are -[place]. ? Have a father, brother, or uncle [...] Document R (more content not included)... Normal [facility] Urology Office/Clinic Noteon 10-15-2022 Urology Office/Clinic [...] Contact Information SELENA LEONG, Jf Reis, [address] [place] [address]- Additional Instructions: PSA today - await results [...] Father. Immunizations Vaccine Date Status Comments SARSCoV2 mRNA(omxezhpzp-uuhk-mlpkli ) vac 03/12/2022 Recorded 2022-06-28: TPV70 SARS-CoV-2 [...] Dipstick: Negativ (more content not included)... Normal [facility] Comment on above: Result Comment: Elec tronically Signed By: Jf SANCHES MD\.br\Date and Time Signed: 10/15/22 11:23 EST\.br\Electronically Co-Signed By: Dori Wynne\.br\Date and Time Co-Signed: 10/15/22 11:19 EST\.br\Electronically Co-Signed By: Dori Wynne\.br\Date and Time Co-Signed: 10/15/22 11:21 EST Creatinine (Bld) [Mass/Vol]O rdered By: Jf Sanches on 07-14-2022 Creatinine [Mass/Vol] 0.8 mg/dL 0.6-1.3 [facility] Comment on above: ER/ESD physician is notified/shown all ISTAT results.Critical values may be confirmed by laboratory testing ifdeemed necessary by ER attending doctor. ISTAT XRay CREon 07-14-2022 Creatinine [Mass/Vol] 0.8 mg/dL Normal 0.6-1.3 [facility] Comment on above: Result Comment: ER/E SD physician is notified/shown all ISTAT results. Critical values may be confirmed by laboratory testing if deemed necessary by ER attending doctor. Performed By: #### I SCRE #### [facility] [address] [place] [address] Point of Care testing , ISTAT GFR ( > 60 Normal [facility] Comment on above: Result Comment: GFR estimated reference range: According to KDOQI guidelines, <60 ml/min/1.73m2 is sufficient to diagnose a patient with chronic kidney disease. PERFORMED BY: [place] [address] PATHOLOGIST PRECISION MACHINE OPERATOR MADELYN LAIRD M.D. Performed By: #### I SCRE #### [address] Point of Care testing , ISTAT GFR (Non- Am > 60 Normal [facility] Comment on above: Performed By: #### I SCRE #### [facility] [address] Point of Care testing , No Panel InformationOrdered By: Jf Sanches on 07-14-2022 POC Estimated GFR > 60 [facility] Comment on above: GFR estimated refere nce range: According to KDOQI guidelines, <60 ml/min/1.73m2 is sufficient to diagnose a patient with chronic kidney disease. POC Estimated GFR Non- Amer > 60 [facility] Pre-Certification Formon Pre-Certification Form [id number]:[address] [facility] Lab Reportson 07-05-2022 Lab Reports [id number]:[address] [facility] Physician Referralon 022 Physician Referral [id number]:[address] [facility] Ambulatory Visit Summaryon 1 08-28-2021 Ambulatory [...] [facility] [address] , [place] [id number]- [phone] Medications What When Instructions Unchanged amlodipine (amLODIPine [...] prostate gland (more content not included)... Normal [facility] Historical Records Officeon 06-28-2022 Historical Records Office [id number]:[address] [facility] Patient Educationon 06-28-20 22 Patient Education [...] Follow these instructions at home: ? Take ibwz-yti-krullib and prescription medicines only as told by [...] You d (more content not included)... Normal [facility] PSA, FREE AND TOTAL RATIOon 05-21-2022 % Free PSA 7.1 % Normal [facility] Comment on above: Result Comment: The [...] men. Performed By: #### P SAFREE #### [facility] [address] [place] [address] Dr. Zaira Benoit Prostate specific Ag [Mass/Vol] 6.8 ng/mL Critically high 0.0-4.0 [facility] Comment on above: Result Comment: Bryant woodruff ECLIA methodology. . According to the [place] [employer], Serum PSA should decrease and [...] disease. Performed By: #### P SAFREE #### [facility] [address] [place] [address] Dr. Zaira Benoit PSA, Free 0.48 ng/mL Normal N/A [facility] Comment on above: Result Comment: Bryant woodruff ECLIA methodology. Performed By: #### P SAFREE #### [facility] [address] [place] [address] Dr. Zaira Benoit INSULINon 05-13-2022 Insulin 7.8 uIU/mL Normal 2.6-24.9 [facility] Comment on above: Performed By: #### I NSULIN #### [facility] [address] [place] [address] Dr. Zaira Benoit CBC AUTO DIFFon 05-12-2022 BASO # 0.1 103/ul Normal 0.0-0.1 [facility] Comment on above: Performed By: #### C BC #### [facility] [address] [place] [address] Dr. Zaira Benoit Basophils/100 WBC (Bld) 0.9 % Normal 0.2-2.0 [facility] Comment on above: Performed By: #### C BC #### [facility] [address] [place] [address] Dr. Zaira Benoit EO # 0.2 103/ul Normal 0.0-0.7 [facility] Comment on above: Performed By: #### C BC #### [facility] [address] [place] [address] Dr. Zaira Benoit Eosinophils/100 WBC (Bld) 2.1 % Normal 0.9-7.0 [facility] Comment on above: Performed By: #### C BC #### [facility] [address] [place] [address] Dr. Zaira Benoit Erythrocyte distribution width (RBC) [Ratio] 13.2 % Normal 11.0-15.0 [facility] Comment on above: Performed By: #### C BC #### [facility] [address] [place] [address] Dr. Zaira Benoit Hematocrit (Bld) [Volume fraction] 46.6 % Normal 42.0-54.0 [facility] Comment on above: Performed By: #### C BC #### [facility] [address] [place] [address] Dr. Zaira Benoit Hemoglobin (Bld) [Mass/Vol] 15.5 g/dL Normal 14.0-18.0 [facility] Comment on above: Performed By: #### C BC #### [facility] [address] [place] [address] Dr. Zaira Benoit IG # 0.02 10e3/ul Normal 0.00-0.03 [facility] Comment on above: Performed By: #### C BC #### [facility] [address] [place] [address] Dr. Zaira Benoit IG % 0.3 % Normal 0.0-0.5 [facility] Comment on above: Performed By: #### C BC #### [facility] [address] [place] [address] Dr. Zaira Benoit LYMPH # 2.6 103/ul Normal 1.2-3.8 [facility] Comment on above: Performed By: #### C BC #### [facility] [address] [place] [address] Dr. Zaira Benoit Lymphocytes/100 WBC (Bld) 36.9 % Normal 20.5-60.0 [facility] Comment on above: Performed By: #### C BC #### [facility] [address] [place] [address] Dr. Zaira Benoit MANUAL DIFF REQ NO Normal [facility] Comment on above: Performed By: #### C BC #### [facility] [address] [place] [address] Dr. Zaira Benoit MCH (RBC) [Entitic mass] 33.2 pg Normal 25.9-34.0 [facility] Comment on above: Performed By: #### C BC #### [facility] [address] [place] [address] Dr. Zaira Benoit MCHC (RBC) [Mass/Vol] 33.3 g/dL Normal 29.9-35.2 [facility] Comment on above: Performed By: #### C BC #### [facility] [address] [place] [address] Dr. Zaira Benoit MCV (RBC) [Entitic vol] 99.8 fL Critically high 80.0-94.0 [facility] Comment on above: Performed By: #### C BC #### [facility] [address] [place] [address] Dr. Zaira Benoit MONO # 0.6 103/ul Normal 0.3-0.8 [facility] Comment on above: Performed By: #### C BC #### [facility] [address] [place] [address] Dr. Zaira Benoit Monocytes/100 WBC (Bld) 9.1 % Normal 1.7-12.0 [facility] Comment on above: Performed By: #### C BC #### [facility] [address] [place] [address] Dr. Zaira Benoit NEUT # 3.6 103/ul Normal 1.4-6.5 [facility] Comment on above: Performed By: #### C BC #### [facility] [address] [address] [address] Zaira Benoit Neutrophils/100 WBC (Bld) 50.7 % Normal 43.0-75.0 [facility] Comment on above: Performed By: #### C BC #### [facility] [address] [address] [address] Zaira Benoit Platelet mean volume (Bld) [Entitic vol] 9.3 fL Critically low 9.5-13.5 [facility] Comment on above: Performed By: #### C BC #### [facility] [address] [address] [address] Zaira Benoit PLT 191 103/ul Normal 150-450 [facility] Comment on above: Performed By: #### C BC #### [facility] [address] [place] [address] Dr. Zaira Benoit RBC 4.67 106/ul Critically low 4.70-6.10 [facility] Comment on above: Performed By: #### C BC #### [facility] [address] [address] [address] Zaira Benoit WBC 7.0 103/ul Normal 4.0-11.0 [facility] Comment on above: Performed By: #### C BC #### [facility] [address] [place] [address] Dr. Zaira Benoit GLYCOHEMOGLOBIN A1Con 2021 ADA RECOMMENDATION SEE BELOW Normal [facility] Comment on above: Result Comment: ADA RECOMMENDED LIMIT 4.0 - 6.0 ADA THERAPEUTIC TARGET < 7.0 ACTION SUGGESTED > 7.0 Performed By: #### A 1C #### [facility] [address] [address] [address] Zaira Benoit Glucose [Mass/Vol] 151 mg/dL Normal [facility] Comment on above: Performed By: #### A 1C #### [facility] [address] [place] [address] Dr. Zaira Benoit HbA1c (Bld) [Mass fraction] 6.9 % Critically high 4.5-6.2 [facility] Comment on above: Performed By: #### A 1C #### [facility] [address] [address] [address] Zaira Benoit LIPID PROFILEon 05-12-2022 CHOL-HDL RATIO NORM SEE BELOW Normal [facility] Comment on above: Result Comment: 3.3 - 4.4 LOW RISK 4.4 - 7.1 AVERAGE RISK 7.1 - 11.0 MODERATE RISK >11.0 HIGH RISK Performed By: #### L IPID, URIC, CMP #### [facility] [address] [address] [address] Zaira Benoit Cholesterol [Mass/Vol] 132 mg/dL Normal <=200 [facility] Comment on above: Performed By: #### L IPID, URIC, CMP #### [facility] [address] [address] [address] Zaira Benoit Cholesterol in HDL [Mass/Vol] 53 mg/dL Normal 40-60 [facility] Comment on above: Performed By: #### L IPID, URIC, CMP #### [facility] [address] [address] [address] Zaira Benoit Cholesterol in LDL [Mass/Vol] 59.6 mg/dL Normal [facility] Comment on above: Performed By: #### L IPID, URIC, CMP #### [facility] [address] [address] [address] Zaira Benoit Cholesterol.total/Ch olesterol in HDL [Mass ratio] 2.5 {ratio} Normal [facility] Comment on above: Performed By: #### L IPID, URIC, CMP #### [facility] [address] [address] [address] Zaira Benoit HDL NORMAL > or = 60 mg/dl - LO W CARDIOVASCULAR RISK <40 mg/dl - HIGH CARDIOVASCULAR RISK Normal [facility] Comment on above: Performed By: #### L IPID, URIC, CMP #### [facility] [address] [address] [address] Zaira Benoit LDL CALC NORMAL SEE BELOW Normal [facility] Comment on above: Result Comment: <100 mg/dl OPTIMAL 100 - 129 mg/dl NEAR OR ABOVE OPTIMAL 130 - 159 mg/dl BORDERLINE HIGH 160 - 189 mg/dl HIGH >190 mg/dl VERY HIGH Performed By: #### L IPID, URIC, CMP #### [facility] [address] [place] [address] Dr. Zaira Benoit Triglyceride [Mass/Vol] 97 mg/dL Normal <=150 [facility] Comment on above: Performed By: #### L IPID, URIC, CMP #### [facility] [address] [place] [address] Dr. Zaira Benoit VLDL CALC 19.4 mg/dL Normal [facility] Comment on above: Performed By: #### L IPID, URIC, CMP #### [facility] [address] [place] [address] Dr. Zaira Benoit PROF 14(COMP METB)on 022 Albumin [Mass/Vol] 3.9 g/dL Normal 3.4-5.0 [facility] Comment on above: Performed By: #### L IPID, URIC, CMP #### [facility] [address] [place] [address] Dr. Zaira Benoit Albumin/Globulin [Mass ratio] 1.1 {ratio} Normal [facility] Comment on above: Performed By: #### L IPID, URIC, CMP #### [facility] [address] [place] [address] Dr. Zaira Benoit ALP [Catalytic activity/Vol] 92 U/L Normal 46-116 [facility] Comment on above: Performed By: #### L IPID, URIC, CMP #### [facility] [address] [place] [address] Dr. Zaira Benoit ALT [Catalytic activity/Vol] 31 U/L Normal 16-63 [facility] Comment on above: Performed By: #### L IPID, URIC, CMP #### [facility] [address] [place] [address] Dr. Zaira Benoit Anion gap [Moles/Vol] 12.2 mmol/L Normal [facility] Comment on above: Performed By: #### L IPID, URIC, CMP #### [facility] [address] [address] [address] Zaira Benoit AST [Catalytic activity/Vol] 20 U/L Normal 15-37 [facility] Comment on above: Performed By: #### L IPID, URIC, CMP #### [facility] [address] [place] [address] Dr. Zaira Benoit Bilirubin [Mass/Vol] 0.4 mg/dL Normal 0.2-1.0 [facility] Comment on above: Performed By: #### L IPID, URIC, CMP #### [facility] [address] [place] [address] Dr. Zaira Benoit Calcium [Mass/Vol] 8.8 mg/dL Normal 8.5-10.1 [facility] Comment on above: Performed By: #### L IPID, URIC, CMP #### [facility] [address] [place] [address] Dr. Zaira Benoit Chloride [Moles/Vol] 101 mmol/L Normal 98-107 [facility] Comment on above: Performed By: #### L IPID, URIC, CMP #### [facility] [address] [place] [address] Dr. Zaira Benoit CO2 [Moles/Vol] 29.3 mmol/L Normal 21.0-32.0 [facility] Comment on above: Performed By: #### L IPID, URIC, CMP #### [facility] [address] [place] [address] Dr. Zaira Benoit Creatinine [Mass/Vol] 0.88 mg/dL Normal 0.70-1.30 [facility] Comment on above: Performed By: #### L IPID, URIC, CMP #### [facility] [address] [place] [address] Dr. Zaira Benoit EGFR-AF EMIRATI >60 Normal >=60 [facility] Comment on above: Performed By: #### L IPID, URIC, CMP #### [facility] [address] [place] [address] Dr. Zaira Benoit EGFR-NON AF EMIRATI >60 Normal >=60 [facility] Comment on above: Performed By: #### L IPID, URIC, CMP #### [facility] [address] [address] [address] Zaira Benoit Globulin (S) [Mass/Vol] 3.6 g/dL Normal [facility] Comment on above: Performed By: #### L IPID, URIC, CMP #### [facility] [address] [address] [address] Zaira Benoit Glucose [Mass/Vol] 128 mg/dL Critically high 74-106 [facility] Comment on above: Performed By: #### L IPID, URIC, CMP #### [facility] [address] [place] [address] Dr. Zaira Benoit Potassium [Moles/Vol] 4.5 mmol/L Normal 3.5-5.1 [facility] Comment on above: Performed By: #### L IPID, URIC, CMP #### [facility] [address] [place] [address] Dr. Zaira Benoit Protein [Mass/Vol] 7.5 g/dL Normal 6.4-8.2 [facility] Comment on above: Performed By: #### L IPID, URIC, CMP #### [facility] [address] [place] [address] Dr. Zaira Benoit Sodium [Moles/Vol] 138 mmol/L Normal 136-145 [facility] Comment on above: Performed By: #### L IPID, URIC, CMP #### [facility] [address] [place] [address] Dr. Zaira Benoit Urea nitrogen [Mass/Vol] 4.0 mg/dL Critically low 7.0-18.0 [facility] Comment on above: Performed By: #### L IPID, URIC, CMP #### [facility] [address] [place] [address] Dr. Zaira Benoit Urea nitrogen/Creatinine [Mass ratio] 4.5 mg/mg Normal [facility] Comment on above: Performed By: #### L IPID, URIC, CMP #### [facility] [address] [place] [address] Dr. Zaira Benoit URIC ACID SERUMon 05-12-2022 Urate [Mass/Vol] 7.5 mg/dL Critically high 3.5-7.2 [facility] Comment on above: Performed By: #### L IPID, URIC, CMP #### [facility] [address] [address] [address] Zaira Benoit No Panel Information [facility] Vital Signs Date Time Vital Sign Value Performing Clinician Faci lity 10-24-2023 14:53-0500 Body weight 97.52 kg Ale Hickman MD Work Phone: [facility] 10-24-2023 14:53-0500 Diastolic blood pressure 66 mm[Hg] Ale Hickman MD Work Phone: [facility] 10-24-2023 14:53-0500 Heart rate 79 /min Ale Hickman MD Work Phone: [facility] 10-24-2023 14:53-0500 Systolic blood pressure 157 mm[Hg] Ale Hickman MD Work Phone: [facility] 10-15-2022 10:45-0500 Diastolic blood pressure 79 mm[Hg] Jf SANCHES [facility] 10-15-2022 10:45-0500 Heart rate 86 /min Jf SANCHES [facility] 10-15-2022 10:45-0500 Systolic blood pressure 128 mm[Hg] Jf SANCHES [facility] 06-28-2022 13:37-0500 Blood Pressure Location Jf SANCHES [facility] 06-28-2022 13:37-0500 Diastolic blood pressure 89 mm[Hg] Jf SANCHES [facility] 06-28-2022 13:37-0500 Heart rate 74 /min Jf SANCHES [facility] 06-28-2022 13:37-0500 Respiratory rate 16 /min Jf SANCHES [facility] 06-28-2022 13:37-0500 Systolic blood pressure 140 mm[Hg] Jf SANCHES [facility] [place] Encounters Encounter Date Encounter Type Care Provider Facility Start: 05-31-2024 End: 05-31-2024 ambulatory ALE HICKMAN Facility:[facility] Start: 05-25-2024 End: 05-25-2024 ambulatory Ale Hickman MD Work Phone: Urology Start: 05-25-2024 End: 05-25-2024 Telephone encounter Ale Hickman MD Work Phone: Urology Comment on above: Results; Appointment Start: 03-06-2024 End: 03-06-[address] Not Available Start: 02-09-2024 End: 02-09-2024 ambulatory KADY CROW Not Available Start: 02-09-2024 End: 02-09-2024 ambulatory HILDA DILCIA [facility] Start: 01-26-2024 End: 01-26-2024 ambulatory KAIA EGAN Not Available Start: 12-27-2023 End: 12-27-2023 ambulatory MARQUIS WEAVER Facility:[facility] Start: 12-27-2023 End: 12-27-2023 Patient encounter procedure Marquis Weaver OD Work Phone: Ophthalmology Comment on above: Retinal hemorrhage, left eye (Primary Dx); History of retinal detachment; Epiretinal membrane (ERM) of left eye; Nuclear senile cataract of right eye; Pseudophakia, left eye; History of YAG laser capsulotomy of lens, left Start: 12-26-2023 End: 12-27-2023 ambulatory Trevor Forte MD Facility: [facility] Start: 12-08-2023 End: 12-08-2023 ambulatory ALE HICKMAN Facility:[facility] Start: 12-08-2023 End: 12-08-2023 Patient encounter procedure Ale Hickman MD Work Phone: Urology Comment on above: Elevated prostate sp ecific antigen (PSA) (Primary Dx); APPOINTMENT CANCELLED Start: 12-08-2023 End: 12-08-2023 Telemedicine consultation with patient Ale Hickman MD Work Phone: [facility] Start: 12-08-2023 Telephone encounter Ale Hickman MD Work Phone: Urology Start: 11-21-2023 End: 11-22-2023 ambulatory Trevor Forte MD Facility:[facility] Start: 11-17-2023 End: 11-17-2023 ambulatory RAUL SUN Facility:[facility] Start: 10-24-2023 End: 10-24-2023 ambulatory RAUL SUN Facility:[facility] Start: 10-24-2023 End: 10-24-2023 Patient encounter procedure Ale Hickman MD Work Phone: Urology Comment on above: Elevated prostate sp ecific antigen (PSA) (Primary Dx); BPH without obstruction/lower urinary tract symptoms Start: 10-21-2023 End: 10-21-2023 ambulatory [facility] Start: 09-21-2023 End: 09-21-2023 ambulatory [facility] Start: 08-26-2023 End: 08-26-2023 ambulatory [facility] Start: 06-27-2023 End: 06-27-2023 ambulatory RAUL SUN Facility:[facility] Start: 06-06-2023 End: 06-06-2023 ambulatory RAUL SUN Facility:[facility] Start: 06-06-2023 End: 06-06-2023 Patient encounter procedure Marquis Weaver OD Work Phone: Ophthalmology Comment on above: Type 2 diabetes wil itus without retinopathy (HCC) (Primary Dx); Retinal hemorrhage, left eye; Nuclear sclerotic cataract of right eye; Pseudophakia, left eye; History of YAG laser capsulotomy of lens, left; History of retinal detachment Start: 03-02-2023 End: 03-02-2023 Patient encounter procedure Radha Perez MD Work Phone: Ophthalmology Comment on above: OPENED IN ERROR (Jocelyne reji Dx) Start: 10-26-2022 End: 10-27-[address] JF SANCHES . Facility: Start: 10-15-2022 End: 10-16-2022 ambulatory Jf SANCHES Facility:[facility] Start: 10-15-2022 End: 10-16-2022 ambulatory Jf SANCHES Facility:[facility] Start: 10-15-2022 End: 10-15-2022 Lab Drop off Jf SANCHES [facility] Start: 10-15-2022 End: 10-15-2022 Patient encounter procedure Jf SANCHES [facility] Start: 07-14-2022 End: 07-14-2022 ambulatory Daina Judge Facility:[facility] Start: 07-14-2022 End: 07-14-2022 ambulatory VARIETY LATHE OPERATOR-C Daina Judge Work Phone: [facility] Work Phone: Start: 07-14-2022 End: 07-14-2022 Patient encounter procedure VARIETY LATHE OPERATOR-C Daina Judge Work Phone: [facility] [place] Start: 06-28-2022 End: 06-29-2022 ambulatory Jf SANCHES Facility:[facility] Start: 06-28-2022 End: 06-28-2022 Patient encounter procedure Jf SANCHES [facility] Start: 06-16-2022 End: 06-16-2022 Patient encounter procedure Radha Perez MD Work Phone: Ophthalmology Comment on above: After-cataract obscu ring vision, left (Primary Dx); Pseudophakia, left eye; Nuclear senile cataract of right eye; History of retinal detachment - left eye; Epiretinal membrane (ERM) of left eye; Type 2 diabetes mellitus without retinopathy (HCC) Start: 05-20-2022 End: 05-21-2022 ambulatory DANIA BANNER MD [facility] Facility:[facility] Start: 05-12-2022 End: 05-13-2022 ambulatory [facility] Facility:[facility] Start: 03-01-2022 End: 03-01-2022 Patient encounter procedure Marquis Michelmichael OD Work Phone: Ophthalmology Comment on above: After-cataract obscu ring vision, left (Primary Dx); Pseudophakia, left eye; Nuclear senile cataract of right eye; History of retinal detachment - left eye; Epiretinal membrane (ERM) of left eye; Type 2 diabetes mellitus without retinopathy (HCC); Dermatochalasis of both upper eyelids Start: 02-26-2022 ambulatory Radha Perez MD Work Phone: Ophthalmology Comment on above: left eye Start: 02-17-2022 End: 02-17-2022 Patient encounter procedure Radha Perez MD Work Phone: Ophthalmology Comment on above: Nuclear senile catar act of right eye (Primary Dx); History of retinal detachment - left eye; Epiretinal membrane (ERM) of left eye; Type 2 diabetes mellitus without retinopathy (HCC); Pseudophakia, left eye Procedures Date Procedure Procedure Detail Performing Clinician Start: 12-27-2023 Computerized ophthal marquis imaging retina Marquis Michelmichael OD Work Phone: Start: 10-26-[address] ZOLTAN SANCHES . Comment on above: Performed By: #### P SAD #### [facility] [address] [place] [address] Dr. Zaira Benoit Start: 06-16-2022 Post-cataract laser surgery Radha Perez MD Work Phone: Start: 05-12-[address] ZOLTAN SANCHES . Comment on above: Performed By: #### P [facility] #### [facility] [address] [place] [address] Dr. Zaira Benoit Start: 02-17-2022 Computerized ophthal marquis imaging retina Radha Perez MD Work Phone: Start: 02-17-2022 Computerized corneal topography uni/bi Radha Perez MD Work Phone: Start: 08-22-2018 Transrectal biopsy o f prostate using ultrasound guidance Jf SANCHES Ophthalmological imp lant (physical object) Jf SANCHES Comment on above: left eye Repair of incisional hernia Jf SANCHES Plan of Treatment Date Care Activity Detail Author Start: 12-28-2024 End: 12-28-2024 Patient encounter procedure 12/28/2024 1:30 PM EDT Office Visit [facility] Op[facility] [address] [place] [address] Marquis Weaver S, OD [address] [place] [address] Annual Full Eye Exam with Mac OCT Ophthalmology Comment on above: Annual Full Eye Exam with Mac OCT Start: 12-26-2024 Glaucoma screening Dilated Retinal E xam [facility] Start: 2024 RSV Vaccine (1 - 1-d ose 75+ series) RSV Vaccine (1 - 1-dose 75+ series) [facility] Start: 06-27-2024 Glaucoma screening Dilated Retinal E xam [facility] Start: 06-06-2024 Hepatitis C antibody , confirmatory test Dilated Retinal Exam [facility] Start: 04-22-2024 Covid-19 Vaccine ( season) Covid-19 Vaccine ( season) [facility] Start: 04-22-2024 Influenza vaccination [facility] Start: 12-27-2023 End: 12-27-2023 Patient encounter procedure 12/27/2023 1:00 PM EDT Office Visit [facility] [address] [place] [address] Marquis Weaver S, OD [address] [place] [address] RTC 6 months Dilate and oct [facility] Comment on above: RTC 6 months Dilate and oct [facility] Start: 11-24-2023 End: 02-23-2024 Prostate specific Ag [Mass/volume] in Serum or Plasma PSA/PROSTSPECAG DIAG Lab Routine Elevated prostate specific antigen (PSA) BPH without obstruction/lower urinary tract symptoms Expected: 11/24/2023 (Approximate), Expires: 02/23/2024 [facility] Work Phone: Comment on above: Expected: 11/24/2023 (Approximate), Expires: 02/23/2024 Start: 08-22-2023 Advance Directive Discussion Advance Directive Discussion [facility] Start: 08-22-2023 Behavioral Health Screening Behavioral Health Screening [facility] Start: 08-22-2023 Depression Assessment Depression Ass essment [facility] Start: 06-16-2023 Hepatitis C antibody , confirmatory test DILATED RETINAL EXAM [facility] Start: 04-22-2023 Covid-19 Vaccine () Covid-19 Vaccine () [facility] Start: 04-22-2023 Influenza vaccination [facility] Start: 03-01-2023 Hepatitis C antibody , confirmatory test DILATED RETINAL EXAM [facility] Start: 02-17-2023 Hepatitis C antibody , confirmatory test DILATED RETINAL EXAM [facility] Start: 12-11-2022 COVID-19 VACCINE (5 - Pfizer series) COVID-19 VACCINE (5 - Pfizer series) [facility] Start: 08-22-2022 ADVANCE DIRECTIVE DISCUSSION ADVANCE DIRECTIVE DISCUSSION [facility] Start: 08-22-2022 DEPRESSION ASSESSMENT DEPRESSION ASS ESSMENT [facility] Start: 05-07-2022 COVID-19 VACCINE (4 - Booster for Pfizer series) COVID-19 VACCINE (4 - Booster for Pfizer series) [facility] Start: 04-22-2022 Influenza vaccination [facility] Start: 08-22-2021 ADVANCE DIRECTIVE DISCUSSION ADVANCE DIRECTIVE DISCUSSION [facility] Start: 08-22-2021 DEPRESSION ASSESSMENT DEPRESSION ASS ESSMENT [facility] Start: 04-16-2021 COVID-19 VACCINE (3 - Booster for Pfizer series) COVID-19 VACCINE (3 - Booster for Pfizer series) [facility] Start: 07-25-2020 COLORECTAL CANCER SCREENING COLORECTAL CANCER SCREENING [facility] Start: 07-25-2020 FECAL OCCULT BLOOD FECAL OCCULT BLOO D [facility] Start: 07-25-2020 Hepatitis B screening URINE ALBUMIN:CREATININE RATIO [facility] Start: 07-25-2020 Hepatitis B surface antibody level LDL CHOLESTEROL [facility] Start: 07-25-2020 Screening for malign ant neoplasm of colon [facility] Start: 01-24-2020 Hemoglobin A1c measurement HbA1C [facility] Start: 01-24-2020 Hemoglobin A1c/Hemoglobin.total in Blood HBA1C [facility] Start: 2009 Hepatitis B Vaccine (1 of 3 - Risk 3-dose series) Hepatitis B Vaccine (1 of 3 - Risk 3-dose series) [facility] Start: 2009 RSV Vaccine (1 - 1-d ose 60+ series) RSV Vaccine (1 - 1-dose 60+ series) [facility] Start: 11-27-1999 SHINGRIX VACCINE (1 of 2) SHINGRIX VACCINE (1 of 2) [facility] Start: 1994 COLOGUARD (FIT-DNA) COLOGUARD (FIT-D NA) [facility] Start: 1994 Colonoscopy COLONOSCOPY [facility] Start: [address] COLONOGRAPHY [facility] Start: 1994 Screening for malign ant neoplasm of colon [facility] Start: 1994 SIGMOIDOSCOPY SIGMOIDOSCOPY [facility] Start: 1968 Urine microalbumin profile [facility] Start: 11-27-1967 ANNUAL PCP TEAM X RAY OPERATOR GERSON DISEASE VISIT ANNUAL PCP TEAM CHRONIC DISEASE VISIT [facility] Start: 11-27-1967 Anxiety Screening Anxiety Screening [facility] Start: 11-27-1967 Depression Screening Depression Scre ening [facility] Start: 11-27-1967 HEPATITIS C SCREENING HEPATITIS C SC [facility] Start: 11-27-1967 Hepatitis C screening Hepatitis C Sc [facility] Start: 1961 Adult depression screening assessment DEPRESSION SCREENING [facility] Start: 11-27-1959 3 comp foot exam completed DIABETIC FOOT EXAM [facility] Start: 04-07-1960 Diabetic foot examination Diabetic Foot Exam [facility] Start: 11-27-1955 Pneumococcal Vaccine : 65+ (1 - PCV) Pneumococcal Vaccine: 65+ (1 - PCV) [facility] Start: 11-27-1955 Pneumococcal Vaccine : 65+ (1 of 2 - PCV) Pneumococcal Vaccine: 65+ (1 of 2 - PCV) [facility] Start: 11-27-1955 PNEUMOCOCCAL: 65+ (1 - PCV) PNEUMOCOCCAL: 65+ (1 - PCV) [facility] Start: 1949 ABDOMINAL AORTIC ANEURYSM SCREENING ABDOMINAL AORTIC ANEURYSM SCREENING [facility] Start: 1949 Abdominal aortic aneurysm screening Abdominal Aortic Aneurysm Screening [facility] Immunizations Immunization Date Immunization Notes Care Provider Rosalind alvares 03-12-2022 SARS-CoV-2 mRNA (mqsanbxvuor-pcgq-gsout se) vaccine Jf SANCHES [facility] Comment on above: Result Comment: 2021: TPV70 11-14-2020 COVID-19 vaccine, ag e 12+ yr (PFIZER-BIONTECH - PURPLE TOP) Radha Perez MD Work Phone: [facility] Comment on above: Result Comment: 2021: TPV70 10-24-2020 COVID-19 vaccine, ag e 12+ yr (PFIZER-BIONTECH - PURPLE TOP) Radha Perez MD Work Phone: [facility] Comment on above: Result Comment: 2021: TPV70 Payers Date Payer Category Payer Self-pay 2017 Unknown [employer] MARGARITA S AND BLUE [employer]IELD JIL VARELA [id number] 2017-Present [phone] [address] [place] [address] O [id number] 2017 Unknown [id number] 1959 Medicare [id number] 1949 Unknown [id number] 1949 Unknown [id number] 1949 Unknown [id number] 1949 Unknown [id number] 1949 Unknown [id number] 1949 Unknown [id number] 1949 Unknown [id number] 1949 Unknown [id number] 1949 Unknown [id number] 1949 Unknown [id number] 1949 Unknown [id number] Medicare Medicare [id number] Unknown [id number] Social History Date Type Detail Facility Start: 11-03-2016 End: 06-16-2022 Tobacco smoking status KSIS Smokes tobacco daily [facility] History of tobacco use Cigarette Smoker C [facility] Start: 11-03-2016 End: 10-24-2023 Cigarettes smoked current (pack per day) - Reported 1 [facility] Start: 11-03-2016 End: 06-16-2022 Tobacco use and exposure Smokeless tobacco non-user [facility] Start: 02-17-2022 End: 12-27-2023 Alcohol intake Current drinker of alcohol (finding) [facility] Start: 11-20-2018 History SDOH Alcohol Comment per day [facility] Start: 1950 Sex Assigned At Not on file [facility] Start: 06-28-2022 End: 10-15-2022 Tobacco smoking status Heavy tobacco smoker (finding) [facility] Start: 06-16-2022 End: 10-24-2023 Sex Assigned At Male [facility] Start: 1950 Sex Assigned At Male F [facility] National Score (1-10 0), lower number is lower risk 87 [facility] Medical Equipment Procedure Code Equipment Code Equipment Origin al Text Equipment Identifier Dates Lens Acrysof Iq +19.5 Diopter Natural Stableforce 0 D Biconvex 118.7 - [id number] Start: 02-07-2017 Functional Status Date Assessment Result Facility 10-15-2022 Functional Status N/A [facility] 06-28-2022 Functional Status N/A [facility] Clinical Notes 02-17-2022 to 05-31-2024 Telephone Encounter - Niya De León LPN - 05/25/2024 9:04 AM EDTTelephone Encounter - Niya De León LPN - 05/25/2024 9:04 AM EDTTelephone Encounter - Ale Hickman MD - 05/25/2024 7:15 AM EDT Note Date & Type Note Facility 05-31-2024 Note HNO ID: [id number] Author: ?, ?, ? Service: ? Author Type: ? Type: Progress Notes Filed: 05/31/2024 14:32 Note Text: INPATIENT TELEPHONE VISIT PROGRESS NOTE SERVICE DATE: 05/31/2024 SERVICE TIME: 2:00pm Gianfranco Martin has consented to this telephone encounter. Persons Present: patient Chief Complaint/Reason: discuss need for prostate biopsy HPI: Data Reviewed: Most recent labs PSA from [facility] on 05-18-24 = 16.17 (normal values 0-4) PSA PSA PSA, PERCENT FREE Latest Ref Rng <2.60 ng/mL % 07/25/2019 5.33 (H) 6 5.34 (H) 11/17/2023 10.58 (H) Legend: (H) High Assessment: Elevated PSA Counseled the patient regarding current guidelines for prostate cancer screening. I outlined AUA risk stratification (58% risk for prostate cancer given PSA value of 16). Discussed options for elevated PSA, including but not limited to prostate biopsy (recommended) vs follow-up with repeat PSA Patient opted for repeat PSA due to not having a car, accepting the risk of prostate cancer. I informed the patient that he must avoid sexual intercourse for 3 days, biking for 2 weeks, and other activities that aggravate the perineum before repeating the PSA blood test. Offered patient MRI prostate given he says he has had prior negative biopsies, but patient declined considering he does not have a car or way of transportation and he does not know when one will become available to him. Plan: P= PSA test, MRI Prostate orders for if he can get transportation Biopsy discussion to follow TIME SPENT: Start: 2:02 pm Finish: 2:28 pm SIGNATURE: ALE HICKMAN PATIENT NAME: Gianfranco Martin DATE: May 31, 2024 TIME: 2:28PM By signing my name below, IJovita, attest that this documentation has been prepared under the direction and in the presence of Dr. Hickman. Avinash Patelibe Provider Attestation: Ale Huggins M.D., personally performed the services described in this documentation. All medical record entries made by the scribe were at my direction and in my presence. I have reviewed the chart and discharge instructions (if applicable) and agree that the record reflects my personal performance and is accurate and complete. Ale Hickman M.D. [facility] 05-25-2024 Telephone encounter Note Call placed to patient in regards to message below. LVMM for patient to return call back to [phone], in regards to his recent lab results and orders on how Dr. Hickman would like to proceed. [facility] 05-25-2024 Miscellaneous Notes Call placed to patient in regards to message below. LVMM for patient to return call back to [phone], in regards to his recent lab results and orders on how Dr. Hickman would like to proceed. Please notify patient his PSA is very high and he is at high risk of having prostate cancer. he needs to schedule his prostate biopsy unless he had it done else where PSA from [facility] on 05-18-24 = 16.17 (normal values 0-4) Can be done in office under local or in ASC under MARY ANN Hickman MD documented in this encounter [facility] 05-25-2024 Telephone encounter Note Please notify patient his PSA is very high and he is at high risk of having prostate cancer. he needs to schedule his prostate biopsy unless he had it done else where PSA from [facility] on 05-18-24 = 16.17 (normal values 0-4) Can be done in office under local or in ASC under MARY ANN Hickman MD [facility] Work Phone: 05-25-2024 Note HNO ID: [id number] Author: ALE HICKMAN MD Service: ? Author Type: Physician Type: Progress Notes Filed: 05/25/2024 07:14 Note Text: PSA still rising PSA from [facility] on 05-18-24 = 16.17 (0-4) [facility] 10-04-2024 History of Present illness Narrative PSA still rising PSA from [facility] on 05-18-24 = 16.17 (0-4) documented in this encounter [facility] 02-09-2024 Note Greatly improved wit h increased dose of lasix. Trace edema noted today Renal function stable [facility] 02-09-2024 Note Hypertension is unch anged- stable well controlled Continue current treatment regimen. Dietary sodium restriction. Continue current medications. Blood pressure will be reassessed at the next regular appointment. [facility] 02-09-2024 Note Recommended smoking cessation after 5 min discussion and pt declined [facility] 02-09-2024 Note Patient here for 3 [...] All other systems reviewed and are negative. [facility] 02-09-2024 Note UTP CARDIOLOGY PROGR ESS [...] noted today Renal function stable RTC 6months [facility] 12-27-2023 Note Date of Procedure 12/27/2023. Interpretation Right Eye Normal without fluid. Findings include Negative for Intraretinal fluid, Cystoid macular edema. Left Eye Abnormal foveal contour. Findings include Negative for Intraretinal fluid, Cystoid macular edema. Interval Change Right Eye Stable. Left Eye Stable. [facility] 12-27-2023 Note HNO ID: [id number] Author: MARQUIS WEAVER, JOEL Service: ? 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 To schedule office visit to discuss prostate bx if he wishes Ale Hickman MD [facility] Work Phone: 12-13-2023 Miscellaneous Notes Please call again and update me Please notify patient that his PSA is rising from 9 to 10.6 He needs prostate bx Can be done in office under local anesthesia or in ASC under MAC ( [place] [facility]) 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 To schedule office visit to discuss prostate bx if he wishes Ale Hickman MD documented in this encounter [facility] 12-08-2023 Miscellaneous Notes Phone visit unsuccessful and had only VOICE MAIL X 2 I DID NOT LEAVE A MESSAGE Please notify patient that his PSA is rising from 9 to 10.6 He needs prostate bx Can be done in office under local anesthesia or in ASC under MAC ( [place] [facility]) 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 Service: ? Author Type: ? Type: Progress Notes Filed: 12/08/2023 14:51 Note Text: 72 year old male with nuclear sclerotic senile, ERM, pseudophakia here today for elevated PSA. PSA PSA PSA, PERCENT FREE Latest Ref Rng <2.60 ng/mL % 07/25/2019 5.33 (H) 6 5.34 (H) 11/17/2023 10.58 (H) Attempted to call patient at 2:41. No answer. [facility] 12-08-2023 History of Present illness Narrative 72 year old male with nuclear sclerotic senile, ERM, pseudophakia here today for elevated PSA. PSA PSA PSA, PERCENT FREE Latest Ref Rng <2.60 ng/mL % 07/25/2019 5.33 (H) 6 5.34 (H) 11/17/2023 10.58 (H) Attempted to call patient at 2:41. No answer. documented in this encounter [facility] 10-24-2023 Instructions Raven Babcock - 10/24/2023 3:05 PM EST -PSA in 4 weeks at [facility] lab -Schedule telephone visit in 5 weeks to discuss PSA blood test documented in this encounter [facility] 10-24-2023 History of Present illness Narrative Gianfranco Martin [address] [place] [address] 72 year old male with nuclear sclerotic [...] 2007 Retinal detachment, left eye, repaired in [place], [place] PAST SURGICAL HISTORY OF hernia sx, POST-CATARACT LASER SURGERY Left 06/16/2022 YAG Capsulotomy OS by Dr. Perez XCAPSL CTRC RMVL INSJ IO LENS PROSTH W/O ECP Left 02/07/2017 Cataract Extraction with PC IOL OS by Dr. Perez FAMILY HISTORY Problem Relation Age of Onset [...] nontender, w/o nodules. Good anal sphincter tone. [facility] SYMPTOMS SCORE. Date 10/24/2023 1. [...] Ale Hickman M.D. documented in this encounter [facility] 10-24-2023 Note HNO ID: [id number] Author: ?, ?, ? Service: ? Author Type: ? Type: Progress Notes Filed: 10/24/2023 15:09 Note Text: [place] [address] 72 year old male with nuclear sclerotic [...] 2007 Retinal detachment, left eye, repaired in [place], [place] PAST SURGICAL HISTORY OF hernia sx, POST-CATARACT LASER SURGERY Left 06/16/2022 YAG Capsulotomy OS by Dr. Perez XCAPSL CTRC RMVL INSJ IO LENS PROSTH W/O ECP Left 02/07/2017 Cataract Extraction with PC IOL OS by Dr. Perez FAMILY HISTORY Problem Relation Age of Onset [...] nontender, w/o nodules. Good anal sphincter tone. [facility] SYMPTOMS SCORE. Date 10/24/2023 1. [...] and in the presence of Dr. Hickman. Raven Babcock Scribe Provider Attestation: IAle M.D., personally performed the services describe (more content not included)... [facility] 10-21-2023 Note PCP increased lasix to 40 mg daily, and I started aldactone at last visit. Renal function remains normal [facility] 10-21-2023 Note Patient is unsure of his medications, why he takes each med and sometimes not sure if he is taking them once or twice a day [facility] 10-21-2023 Note Hypertension is stil l elevated and leg swelling pt states is unchanged Resume norvasc 5 mg daily, continue atenolol, losartan bid, aldactone and lasix [facility] 10-21-2023 Note Patient here for 1 [...] All other systems reviewed and are negative. [facility] 10-21-2023 Note UTP CARDIOLOGY PROGR ESS [...] reason for each medication that he takes. [facility] 09-21-2023 Note Start aldactone and continue lasix 40 mg daily Repeat bmp 1 week [facility] 09-21-2023 Note Hypertension is unco ntrolled, and with leg swelling/edema asked pt to stop norvasc and start aldactone. Repeat labs in 1 week and to notify office for any concerns/ side effects- muscle cramps, tenderness. Pt does not check b/p at home [facility] 09-21-2023 Note Recommended smoking cessation- pt is not agreeable at this time [facility] 09-21-2023 Note Reports WILLAMS, noted w [...] week to check renal function and electrolytes. [facility] 09-21-2023 Note UTP CARDIOLOGY PROGR ESS [...] and he may proceed with physical therapy. [facility] 09-21-2023 Note Patient here for car [...] All other systems reviewed and are negative. [facility] 08-26-2023 Note Cardiology Clinic No te [...] time -Optimize med (more content not included)... [facility] 08-26-2023 Note New patient here to establish care. Ref from Daina Judge CNP for hypertension. She ordered stress test recently but he was unable to complete it due to inability to lie flat. He smokes 1.5 PPD and drinks about 5 beers daily. Denies chest pain, palpitations, and lightheadedness. Says his LE are always taut and swollen. [facility] 06-27-2023 Note HNO ID: [id number] Author: Keynon Angel OD Service: ? Author Type: RIP SAWYER Type: Progress Notes Filed: 06/27/2023 1:37 PM [...] Angel, OD June 27, 2023 1:37 PM [facility] 06-06-2023 Note HNO ID: [id number] Author: Marquis Weaver OD Service: ? Author Type: RIP SAWYER Type: Progress Notes Filed: 06/06/2023 2:29 PM [...] ICD10: Z98.42 Stable. Cataract surgery with Dr Perez in 2017 p Retinal detachment surgery Monitor [...] with all of its relevant components. Marquis WeaverJOEL June 06, 2023 2:22 PM [facility] 06-06-2023 History of Present illness Narrative ASSESSMENT/PLAN: [...] ICD10: Z98.42 Stable. Cataract surgery with Dr Perez in 2017 p Retinal detachment surgery Monitor [...] with all of its relevant components. Marquis Weaver OD June 06, 2023 2:22 PM documented in this encounter [facility] 10-15-2022 Hospital Discharge instructions Patient Education [...] one of these risk factors: ?Being of -[place] descent. ?Having a family history of prostate [...] you: Are older than age 55. Are -[place]. Have a father, brother, or uncle who [...] 05/19/2018 Document Revised: 07/21/2018 Document Reviewed: 05/19/2018 [employer] Patient Education 2020 [employer] Follow Up Care 10/05/2022 09:16:20 With:SELENA LEONG, Jf Reis, URL Address: [address] [place] [id number] When: Unknown [facility] [place] 06-28-2022 Note Chief Complaint Referral-Elevated PSA HPI Staff Evaluation requested by Daina Marnie ACTIVITIES THERAPIST due to elevated PSA. Pt previously seen [...] [facility] [address], [place] [address]- [phone] Additional Instructions: pt will f/u based on [...] Father. Immunizations Vaccine Date Status Comments SARSCoV2 mRNA(ywglqlcjw-jjrh-auxfng) vac 03/12/2022 Recorded 2022-06-28: TPV70 SARS-CoV-2 (COVID-19) mRNA BNT-162b2 vax 11/14/2020 Recorded 2022-06-28: TPV70 SARS-CoV-2 (COVID-19) mRNA BNT-162b2 vax 10/24/2020 Recorded 2022-06-28: TPV70 Lab Results Test Name Test Result Date/Time PSA, External 6.8 ng/mL 05/20/2022 08:26 EDT PSA, External 8.41 ng/mL 05/12/2022 08:25 EDT Diagnostic Results Test (more content not included)... [facility] Comment on above: Result Comment: Elec [...] urethra. Follow these instructions at home: Take tple-jrn-xqxdrhl and prescription medicines only as told by [...] 08/08/2006 Document Revised: 07/03/2019 Document Reviewed: 09/12/2017 [employer] Patient Education 2019 [employer]. Follow Up Care 05/27/2022 15:25:17 With:SELENA LEONG, Jf Reis, URL Address: [facility] [address], [place] [id number]- [phone] When: Unknown [facility] 06-16-2022 History of Present illness Narrative [...] garnet (YAG) capsulotomy left eye by Dr. Perez, which was completed today. 2. Pseudophakia, left eye - ICD9: V43.1, ICD10: Z96.1 -S/P PCIOL Left eye (02/07/17) Aim: Kirby by Dr. Ana farnsworth; He states that he is happy using OTC readers and declines appt for refraction with business intelligence developer 3. Nuclear senile cataract of right eye - ICD9: 366.16, ICD10: H25.11 He is still happy enough with his vision and opts to follow up with Dr. Perez January 2023 for exam/cataract evaluation 4. History of retinal detachment - left eye - ICD9: V12.49, ICD10: Z86.69 history of retinal detachment repair OS 2007 in [place]. Stable. Call/come in for evaluation immediately if [...] 01/2023 for cataract evaluation OD with Dr. Perez or sooner as needed Radha Perez MD The documentation for this note was completed by Ewa Alegria, SENTHIL acting as a scribe for, and in the presence of, Dr. Radha Perez M.D. 06/16/22 The documentation recorded by the [...] with all of its relevant components. Radha Perez MD documented in this encounter [facility] 03-01-2022 History of Present illness Narrative ASSESSMENT/PLAN: 1. 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 Pseudophakia, left eye - ICD9: V43.1, ICD10: Z96.1 Pt has become more observant of diminished vision Left eye since the Posterior capsular opacity was mentioned by Dr Perez Pt has been very concerned that he is losing his OS eyesight since 02/17/2022 He would prefer to return to clinic for YAG evaluation sooner rather than 12 months as planned 3. Nuclear senile cataract of right eye - ICD9: 366.16, ICD10: H25.[address] Radha Perez 4. History of retinal detachment - left [...] 4:08 PM documented in this encounter [facility] 02-26-2022 Miscellaneous Notes Called to let patient know we were able to get him an appointment in [place] at 4pm, left message. SENTHIL Ballesteros February 26, 2022 3:[address] Perez and she recommends that he be seen today. Please reach out to Patient to see if we can get appointment. SENTHIL Ballesteros February 26, 2022 2:57 PM documented in this encounter [facility] 02-17-2022 History of Present illness Narrative [...] h/o retinal detachment repair OS 2007 in [place]. Stable. Call/come in for evaluation immediately if [...] eye -S/P PCIOL Left eye (02/07/17) Aim: Kirby by Dr. Perez Signs and symptoms of posterior capsular opacification were reviewed. Discussed possible eventual need for Yag laser posterior capsulotomy. Patient is still happy enough with vision, so declines Yag procedure for now. stable; he remains happy with his vision OS and with OTC readers If he wishes to get new glasses, previously offered an undilated refraction with our optometrists in [place]; he was told that vision with new glasses would not be perfect due to cataract OD; he also has mild PCO OS and Epiretinal membrane OS. He sees a nurse practitioner in [place] Offered for him to establish with a [facility] coding clerk in [place] Return to clinic in 12 months for cataract evaluation OD and possible Yag PC OS with Dr. Perez or sooner if needed. Radha Perez MD The documentation for this note was completed by SENTHIL Mckeon acting as a scribe for, and in the presence of, Dr. Radha Perez M.D. The documentation recorded by the scribe [...] with all of its relevant components. Radha Perez MD 02/17/22 documented in this encounter [facility] Evaluation + Plan note No data available for this section [facility] Evaluation note Diagnosis Nuclear senile cataract [...] other means [facility] Diagnosis 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, left- [...] both upper eyelids [facility] Diagnosis 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, left- [...] stated as uncontrolled documented [facility] noteNo assessment information availableOhiohealth [facility] Work Phone: Evaluation note* Diagnosis OPENED IN ERROR- Primary To allow closing an encounter opened in error (used in SmartSet) [facility]* Diagnosis Type 2 diabetes mellitus without [...] and sense organs [facility]* Diagnosis Elevated prostate specific antigen (PSA)- Primary BPH without obstruction/lower urinary tract symptoms Hypertrophy of prostate without urinary obstruction and other lower urinary tract symptoms (LUTS) [facility] Diagnosis Elevated prostate specific antigen (PSA)- Primary APPOINTMENT CANCELLED Retinal hemorrhage, left eye- Primary Retinal hemorrhage History of retinal detachment Personal history of other disorders of nervous system and sense organs Epiretinal membrane (ERM) of left eye [facility] Diagnosis Retinal hemorrhage, left eye- Primary Retinal hemorrhage History of retinal detachment Personal history of other disorders of nervous system and sense organs Epiretinal membrane (ERM) of left eye Nuclear senile cataract of right eye Pseudophakia, left eye Lens replaced by other means History of YAG laser capsulotomy of lens, left [facility] No data available for this section [facility] No data available for this section [facility] [place] Medications Administered Section Active Administered Medications - [...] the event of a Fluress shortage, administer [place]-Fluor 1 drop into both eyes as directed [...] the event of a Fluress shortage, administer [place]-Fluor 1 drop into both eyes as directed [...] 2:00 PM EDT 1 Drop Advance Directives Documents on File Type Date Recorded Patient Human Intelligence Expl anation Advance Directive(s) 02/07/2017 9:56 AM [...] prosecute any alcohol or drug abuse patient.[facility] Hospital[facility] the event this information is protected by the Federal Confidentiality of Alcohol and Drug Abuse Patient Records regulations: The Federal rules restrict any use of the information to criminally investigate or prosecute any alcohol or drug abuse patient.[facility] the event this information is protected by the Federal Confidentiality of Alcohol and Drug Abuse Patient Records regulations: The Federal rules restrict any use of the information to criminally investigate or prosecute any alcohol or drug abuse patient.[facility] Hospital[facility] the event this information is protected by the Federal Confidentiality of Alcohol and Drug Abuse Patient Records regulations: The Federal rules restrict any use of the information to criminally investigate or prosecute any alcohol or drug abuse patient.[facility] Hospital[facility] the event this information is protected by the Federal Confidentiality of Alcohol and Drug Abuse Patient Records regulations: The Federal rules restrict any use of the information to criminally investigate or prosecute any alcohol or drug abuse patient.[facility] Hospital[facility] the event this information is protected by the Federal Confidentiality of Alcohol and Drug Abuse Patient Records regulations: The Federal rules restrict any use of the information to criminally investigate or prosecute any alcohol or drug abuse patient.[facility] Hospital[facility] the event this information is protected by the Federal Confidentiality of Alcohol and Drug Abuse Patient Records regulations: The Federal rules restrict any use of the information to criminally investigate or prosecute any alcohol or drug abuse patient.[facility] HospitalIn the event this information is protected by the Federal Confidentiality of Alcohol and Drug Abuse Patient Records regulations: The Federal rules restrict any use of the information to criminally investigate or prosecute any alcohol or drug abuse patient.[facility] HospitalIn the event this information is protected by the Federal Confidentiality of Alcohol and Drug Abuse Patient Records regulations: The Federal rules restrict any use of the information to criminally investigate or prosecute any alcohol or drug abuse patient.[facility] Hospital[facility] the event this information is protected by the Federal Confidentiality of Alcohol and Drug Abuse Patient Records regulations: The Federal rules restrict any use of the information to criminally investigate or prosecute any alcohol or drug abuse patient.[facility] Hospital[facility] the event this information is protected by the Federal Confidentiality of Alcohol and Drug Abuse Patient Records regulations: The Federal rules restrict any use of the information to criminally investigate or prosecute any alcohol or drug abuse patient.[facility] HospitalIn the event this information is protected by the Federal Confidentiality of Alcohol and Drug Abuse Patient Records regulations: The Federal rules restrict any use of the information to criminally investigate or prosecute any alcohol or drug abuse patient.[facility] HospitalIn the event this information is protected by the Federal Confidentiality of Alcohol and Drug Abuse Patient Records regulations: The Federal rules restrict any use of the information to criminally investigate or prosecute any alcohol or drug abuse patient.[facility] Reason for Visit (unrecogniz ed section [...] Results Reason Comments Retinal hemorrhage, left eye Reason Comments Results Appointment Care Teams (unrecognized sec tion and content) Support Dba Relationship Specialty Start Date End Date Raul Sun MD PCP - General Family Practice 02/11/21 Support Dba Relationship Specialty Start Date End Date Raul Sun MD PCP - General Family Practice 02/11/21 Support Dba Relationship Specialty Start Date End Date Raul Sun MD PCP - General Family Practice 02/11/21 Support Dba Relationship Specialty Start Date End Date Raul Sun MD PCP - General Family Medicine 02/11/21 Team Status: Inactive Member Role Status Dates Jf Sanches MD Attending Provider Active AMMY Darling Primary Care Provider Active Team Status: Active Member Role Status Dates AMMY Darling Primary Care Provider Active Support Dba Relationship Specialty Start Date End Date Raul Sun MD PCP - General Family Medicine 02/11/21 Support Dba Relationship Specialty Start Date End Date Raul Sun MD PCP - General Family Medicine 02/11/21 Support Dba Relationship Specialty Start Date End Date Raul Sun MD PCP - General Family Medicine 02/11/21 Daina Judge CNP [address] [facility] [place] [address] Referring Internal Medicine 10/15/23 Support Dba Relationship Specialty Start Date End Date Raul Sun MD PCP - General Family Medicine 02/11/21 Daina Judge, HIRO [address] [facility] [place] [address] Referring Internal Medicine 10/15/23 Support Dba Relationship Specialty Start Date End Date Raul Sun MD PCP - General Family Medicine 02/11/21 Daina Judge CNP [address] [facility] [place] [address] Referring Internal Medicine 10/15/23 Support Dba Relationship Specialty Start Date End Date Raul Sun MD PCP - General Family Medicine 02/11/21 Daina Judge CNP [address] [facility] [place] [address] Referring Internal Medicine 10/15/23 Support Dba Relationship Specialty Start Date End Date Raul Sun MD PCP - General Family Medicine 02/11/21 Daina Judge, HIRO [address] [facility] [place] [address] Referring Internal Medicine 10/15/23 Goals (unrecognized section and content) Goals may be documented in a n alternate section (unrecognized sect ion and content) No Status Records FoundNo Status Records FoundNo Status Records FoundNo Status Records FoundNo Status Records FoundNo Status Records FoundNo Status Records Found INFORMATION SOURCE (unrecogn ized section and content) DATE CREATED AUTHOR 07/29/2022 [facility] DATE CREATED AUTHOR AUTHOR'S ORGANIZ ATION 10/28/2022 [facility] DATE CREATED AUTHOR AUTHOR'S ORGANIZ ATION 12/01/2022 [facility] DATE CREATED AUTHOR AUTHOR'S ORGANIZ ATION 01/01/2024 [facility] DATE CREATED AUTHOR AUTHOR'S ORGANIZ ATION 02/11/2024 [facility] DATE CREATED AUTHOR AUTHOR'S ORGANIZ ATION 03/10/2024 [facility] DATE CREATED AUTHOR AUTHOR'S ORGANIZ ATION 06/01/2024 [facility] FOR RECORDS PERTAINING TO PATIENTS WHO ARE [...] BE BASED ON THE PRIMARY CLINICAL RECORDS. [facility]. provides no warranty or guarantee of the accuracy or completeness of information in this document.
[2024-06-01 15:25] LABS: Sodium Urine Random 24 mmol/L (30-90)
[2024-06-01 15:42] LABS: Alanine Aminotransferase 27 U/L (16-63); Albumin Globulin Ratio 1.1; Albumin Level 3.8 g/dL (3.4-5.0); Alkaline Phosphatase 83 U/L (46-116); Anion Gap 10.7; Aspartate Amino Transferase 19 U/L (15-37); Bilirubin Total 0.5 mg/dL (0.2-1.0); Carbon Dioxide 27.7 mmol/L (21.0-32.0); Chloride 95 mmol/L (98-107); Estimated GFR (African America >60 (>=60 mL/min/1.73m^2); Estimated GFR (Non-African Ame >60 (>=60 mL/min/1.73m^2); Globulin 3.4 g/dL; Glucose 121 mg/dL (74-106); Potassium 4.4 mmol/L (3.5-5.1); Sodium 129 mmol/L (136-145); Total Protein 7.2 g/dL (6.4-8.2)
[2024-06-05 11:09] LABS: Osmolality, Urine 137 mOsmol/kg (.)
== END 2024-06-01 15:07 | disposition home or self-care (01) ==
LOC: LAB 15:08
PROVIDERS: PCP Nurse Practitioner Family; Visit Provider Nurse Practitioner Family
DX: E87.1 Hypo-osmolality and hyponatremia (principal)
CPT/HCPCS: 36415; 80053; 83935; 84300

== ENCOUNTER 2024-07-05 14:53 | Outpatient (OUT) | payer MEDICARE, SELFPAY ==
--- OUTSIDE RECORDS SUMMARY | 2024-07-05 15:15 | XMS_ITS | CCD ---
Author Organization [facility] Care Team Providers Care Unix Consultant Name Role Phone Raul Sun MD Primary Care Provider DAINA JUDGE Primary Care Physician MD Jf Sanches Attending Provider AMMY Judge [...] Unavailable Jf SANCHES Attending Unavailable DAINA JUDGE S Referring Unavailable Jf SANCHES Attending Unavailable Jf SANCHES Admitting Unavailable Raul Sun MD Primary Care Provider Daina Judge CNP Unavailable Raul Sun MD Primary Care Provider Reanna LEONG, Trevor Kruger Attending Unavailable Reanna [...] Primary Care Unavailable MARQUIS WEAVER Attending Unavaila ALE Antonio Attending Unavailable RAUL SUN Primary Care Unavailable MARQUIS WEAVER Attending Unavaila RAUL Reeder Primary Care Unavailable ALE HICKMAN Attending Unavailable RAUL SUN Primary Care Unavailable RAUL SUN Primary Care Unavailable Allergies Allergy Classification Reported Allergen(s) Allergy Type Date of Onset Reaction(s) Facility (17 sources) Penicillins; Translations: [PENICILLINS] Drug Allergy 7 Rash [facility] (5 sources) Penicillin; Translations: [penicillin] Drug Allergy 2 Unknown skin reaction [facility] (1 source) Penicillins Drug allergy (disorder) 2 [facility] Repository (1 source) amLODIPine; Translations: [AMLODIPINE] Drug Allergy 4 [facility] Repository Medications Current Medications Medication Drug Class(es) Dates Sig (Normalized) Sig (Original) [id number] actuat albuterol 0.09 mg/actuat metered dose inhaler (10 sources) beta2-Adrenergic Agonist Start: 04-17-2023 albuterol HFA (PROVENTIL HFA, VENTOLIN HFA) 90 mcg/actuation inhaler 04/17/2023 Active amLODIPine 5 mg oral tablet (18 sources) Dihydropyridine Calcium Channel Rosie Start: 01-14-2021 take 1 tablet by mouth once daily amLODIPine (NORVASC) 5 mg tablet Take 5 mg by mouth once daily. 01/14/2021 Active Comment on above: Take 5 mg by mouth o nce daily. atenolol 50 mg oral tablet (18 sources) beta-Adrenergic Rosie Start: 11-02-2018 atenolol (TENORMIN) 50 mg tablet 11/02/2018 Active atorvastatin 10 mg oral tablet (18 sources) HMG-CoA Reductase Inhibitor Start: 02-01-2022 atorvastatin (LIPITOR) 10 mg tablet 02/01/2022 Active busPIRone hydrochloride 5 mg oral tablet (18 sources) Start: 11-02-2018 busPIRone (BUSPAR) 5 mg tablet 11/02/2018 Active cholecalciferol 0.05 mg oral capsule (15 sources) Vitamin D Cholecalciferol, Vitamin D3, 50 mcg (2,000 unit) cap Take by mouth. Active Cholecalciferol, Vitamin D3, (VITAMIN D-3) 2,000 unit cap Take by mouth. 0 Active Comment on above: Take by mouth. diclofenac sodium 75 mg delayed release oral tablet (9 sources) Nonsteroidal Anti-inflammatory Drug Start: take 1 tablet by mouth every twelve hours diclofenac, EC, (VOLTAREN) 75 mg EC tablet Take 1 tablet by mouth every 12 hours. 10/09/2023 Active Comment on above: Take 1 tablet by alejandra th every 12 hours. doxycycline hyclate 50 mg oral capsule (15 sources) Tetracycline-class Drug Start: take 1 capsule by mouth once daily doxycycline (VIBRAMYCIN) 50 mg capsule Take 50 mg by mouth once daily. 01/25/2022 Active Comment on above: Take 50 mg by mouth once daily. FLUoxetine 40 mg oral capsule (15 sources) Serotonin Reuptake Inhibitor take 1 capsule by mouth once daily FLUoxetine HCl (PROZAC) 40 mg capsule Take 40 mg by mouth once daily. Active Comment on above: Take 40 mg by mouth once daily. furosemide 20 mg oral tablet (18 sources) Loop Diuretic Start: 019 furosemide (LASIX) 20 mg tablet 11/02/2018 Active hydroCHLOROthiazide 12.5 mg / losartan potassium 50 mg oral tablet (18 sources) Thiazide Diuretic, Angiotensin 2 Receptor Roise Start: hydrochlorothiazid e-losartan 12.5 mg-50 mg Tab Refill(s) 0 Start Date: 06/28/22 Status: Ordered Start: 11-02-2018 losartan-hydro chlorothiazide (HYZAAR) 50-12.5 mg per tablet 11/02/2018 Active iv contrast (will be provided with radiology test) (2 sources) Start: 05-31-2024 iv contrast (w ill be provided with radiology test) MRI Prostate Inject, intravenously, once for 1 dose. No IV access, insert saline lock prior to the beginning of sedation, infusion, injection of imaging exam. Discontinue saline lock post exam. If Pt. has a central line or IVAD, may access for administration according to line specific nursing protocol. Once exam is complete flush line and de-access according to line specific nursing protocol in the MR contrast administration guidelines link. 1 Each 05/31/2024 Active loratadine 10 mg oral tablet (18 sources) Start: 06-28-2022 take 3 tablets by [...] daily. metFORMIN hydrochloride 500 mg oral tablet (18 sources) Biguanide Start: 11-02-2018 metFORMIN (GLUCOPHAGE) 500 mg tablet 11/02/2018 Active Minocycline (15 sources) Tetracycline-class Drug MINOCYCLINE HCL (MINOCYCLINE ORAL) Take by mouth. Active MINOCYCLINE HCL (MINOCYCLINE ORAL) Take by mouth. 0 Active Comment on above: Take by mouth. naltrexone hydrochloride 50 mg oral tablet (15 sources) Opioid Antagonist Start: 11-03-19 naltrexone (TREXAN) 50 mg tablet 11/02/2018 Active potassium chloride 10 meq extended release oral capsule (9 sources) Start: 09-08-19 24 potassium chloride SR (MICRO-K) 10 mEq CR capsule Take 10 mEq by mouth two times a day. Take with food 09/08/2023 Active Comment on above: Take 10 mEq by mouth two times a day. Take with food spironolactone 25 mg oral tablet (9 sources) Aldosterone Antagonist Start: 09-21-19 take 1 tablet by mouth once daily in the morning spironolactone (ALDACTONE) 25 mg tablet Take 25 mg by mouth every morning. 09/21/2023 Active Comment on above: Take 25 mg by mouth every morning. traZODone hydrochloride 150 mg oral tablet (18 sources) Serotonin Reuptake Inhibitor Start: 06-28-20 traZODONE [...] disorders (3 sources) Anxiety disorder 08-08-2019 Chronic Cancer of prostate (1 source) Malignant tumor of prostate; Translations: [Malignant neoplasm of prostate] 05-31-2024 Chronic Cataract (20 sources) Nuclear senile cataract; [...] Depressive disorder 08-08-2019 Chronic Other eye disorders (15 sources) Chorioretinal scar of left eye; Translations: [Unspecified chorioretinal scars, left eye] Onset: 11-10-2016 11-10-2016 Chronic Other eye disorders (2 sources) History of mfmbqyk-jafcywdu-vwa net (YAG) laser capsulotomy of lens; Translations: [...] that caused by tuberculosis or sexually transmitteddisease) (15 sources) Blepharitis of upper and lower eyelids of bilateral eyes; Translations: [Unspecified blepharitis right eye, upper and lower eyelids] Onset: 11-10-2016 11-10-2016 Episodic Other eye disorders (5 sources) Excess skin of eyelid; Translations: [Dermatochalasis of right upper eyelid] Onset: 11-10-2016 11-10-2016 Episodic Other eye disorders (11 sources) Dermatochalasis of right upper eyelid; Translations: [Dermatochalasis] Onset: 11-10-2016 11-10-2016 Episodic Other lower respiratory disease (2 sources) Other forms of dyspnea; Translations: [Other forms of dyspnea] Onset: 09-21-2023 Episodic Other nervous system disorders (20 sources) H/O: retinal detachment; Translations: [Personal history of other diseases of the nervous system and sense organs] Onset: 11-10-2016 Episodic Other nervous system disorders (1 source) Personal history of other diseases of the nervous system and sense organs; Translations: [History of retinal detachment] Onset: 11-10-2016 Episodic Other screening for suspected conditions (not mental disorders or infectious disease) (16 sources) Raised prostate specific antigen; Translations: [Elevated prostate specific antigen [PSA]] Onset: 05-24-2022 Episodic Unclassified (1 source) Patient's noncompliance with other medical treatment and regimen due to unspecified reason; Translations: [Patient's noncompliance with other medical treatment and regimen due to unspecified reason] Onset: 10-21-2023 Results Test Name Value Interpretation Reference Range Facility [facility] 05-31-2024 [facility] Telephone (UROLLN) -- GIANFRANCO MARTIN ([id number]) 1950 M Date Time Provider Department 05/31/24 ALE HICKMAN During your visit today, we recorded the following information about you: Negrita Niocle 05/31/2024 3:56 PM Signed Jovita Glover [facility] Schedulers Pool Please schedule patient for an MRI Prostate and then for an OV to follow per request! LVM for pt to call back and schedule MRI and follow up. Leticiahart sent. Paty Lacey 06/01/2024 11:10 AM Signed Julius Hickman- Spoke to patient Told Patient I was calling to get him scheduled for PSA and MRI with a follow up to see you. 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 Pt explained his Urology provider, Dr Barroso at [facility], scheduled him an MRI and he was unable to lie flat and complete the MRI so he does not believe he will be able to do this. Pt stated Dr Barroso has been monitoring his prostate and they did several biopsies for prostate. Patient DECLINED to schedule at this time stating that if/when he needs to see Dr Hickman, he will call. I told him the order for the MRI and PSA is in, so should he call, he can get it scheduled. Paty Lacey June 01, 2024 11:08 AM Ale Hickman MD 06/02/2024 10:52 PM Signed noted Please notify patient to follow up with his local urologist since he does not have a ride because his PSA is high PSA PSA, PERCENT FREE Latest Ref Rng <2.60 ng/mL % 07/25/2019 5.33 (H) 6 11/17/2023 10.58 (H) Ale Hickman MD Allergies As of Date: 05/31/2024 Noted Allergy Reaction PENICILLINS 11/03/2016 2 - Rash Date Reviewed: 12/27/2023 Reviewed by: Marquis Weaver OD - Fully Assessed Prescriptions as of 06/04/2024 - iv contrast (will be provided with radiology test) MRI Prostate Inject, intravenously, once for 1 dose. No IV access, insert saline lock prior to the beginning of sedation, infusion, injection of imaging exam. Discontinue saline lock post exam. If Pt. has a central line or IVAD, may access for administration according to line specific nursing protocol. Once exam is complete flush line and de-access according to line specific nursing protocol in the MR contrast administration guidelines link. - spironolactone (ALDACTONE) 25 mg tablet Take [...] at bedtime. Problem List As Of Date 05/31/2024 Noted Resolved Nuclear senile cataract of right [...] left eye [H35.62] 06/27/2023 Encounter Status:[facility] Telephone (UROLLN) -- ANGELGIANFRANCO CAROLINA ([id number]) 1950 M Date Time Provider Department 05/25/24 ALE HICKMAN During your visit today, we recorded the following information about you: Ale Hickman MD 05/25/2024 7:18 AM Signed Please notify patient his PSA is very high and he is at high risk of having prostate cancer. he needs to schedule his prostate biopsy unless he had it done else where PSA from [facility] on 05-18-24 = 16.17 (normal values 0-4) Can be done in office under local or in ASC under [facility] MD Sarthak Pham Nicole, LPN 05/25/2024 9:05 AM Signed Call placed to patient in regards to message below. LVMM for patient to return call back to [phone], in regards to his recent lab results and orders on how Dr. Hickman would like to proceed. Niya De León LPN 05/30/2024 9:07 AM Signed Call placed to patient in regards to message below. LVMM for patient to return call to [phone] in regards to lab results and how [...] Rash Date Reviewed: 12/27/2023 Reviewed by: Marquis Weaver OD - Fully Assessed Reason for Visit: [...] Status:Closed by ALE HICKMAN on 05/25/24 Normal [facility] Office Visiton 02-09-2024 Follow-up visit [id number] Pan Martin 1950 M Date Provider Department Center 02/09/2024 HILDA OLIVO [facility]ARD [facility] Family History Problem Relation Age of Onset Coronary artery disease Father Stroke Father Family Status - Relation Status Age at Father Level of Service:[address] [place] OFFICE/OUTPATIENT ESTABLISHED LOW MDM 20 MIN Normal [facility] OCT MACULA CIRRUS OU (BOTH E YES)on 12-27-2023 [facility] Radiology Study observation (narrative) [facility] CNPNon 12-08-2023 [facility] Telephone (UROLLN) -- GIANFRANCO MARTIN ([id number]) 1950 M Date Time Provider Department 12/08/23 [...] anesthesia or in ASC under MAC ( [place] sleep) 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 Can you try reaching him again with this information? 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 Effect of Verification Bias on Screening for Prostate Cancer by Measurement of Prostatic Specific Antigen. N Engl J Med 2003,349:335-42. Performed By: #### 2 [id number] #### [facility] CLIA [id number] [address] [place], [place] [address] [address] [place] CNOVon 10-24-2023 CNOV Office Visit (UROLLN ) -- GIANFRANCO MARTIN ([id number]) 1950 M Date Time Provider Department 10/24/23 2:40 PM ALE HICKMAN During your visit today, we recorded the following information about you: Pulse Blood pressure Weight 79/minute 157/66 97.5 kg Raven Babcock 10/24/2023 3:09 PM [place] [address] 72 year old male with nuclear sclerotic [...] 2007 Retinal detachment, left eye, repaired in [place], [place] PAST SURGICAL HISTORY OF hernia sx, [...] nontender, w/o nodules. Good anal sphincter tone. [facility] SYMPTOMS SCORE. Date 10/24/2023 1. [...] Moderate By (more content not included)... Normal [facility] 37on 10-21-2023 37 Resume taking norvasc/Amlodipine 5 mg daily for blood pressure Normal [facility] Office Visiton 10-21-2023 Follow-up visit [id number] Pan Martin 1950 M Date Provider Department Center 10/21/2023 HILDA OLIVO Family History Problem Relation Age of Onset Coronary artery disease Father Stroke Father Family Status - Relation Status Age at Father Level of Service:[address]804 [place] OFFICE/OUTPATIENT ESTABLISHED MOD MDM 30 MIN Normal [facility] 3610-06-2023 36 JEANIE Bean MA Labs look good- no concerns= kidney function normal and electrolytes normal Regarding labs done on 10/04/2023 Patient made aware. Normal [facility] 3709-21-2023 37 Stop amlodipine- and start spironlactone- 1 tab daily. Have blood work drawn about 1 week after starting this new med to check kidney function and electrolytes. Call office for any concerns Normal [facility] Office Visiton 09-21-2023 Follow-up visit [id number] Pan Martin 1950 M Date Provider Department Center 09/21/2023 120-DILCIA, HILDA BH CARD [facility] Family History Problem Relation Age of Onset Coronary artery disease Father Stroke Father Family Status - Relation Status Age at Father Level of Service:[address]40 [place] OFFICE/OUTPATIENT ESTABLISHED MOD MDM 30 MIN Normal [facility] Office Visiton 08-26-2023 Follow-up visit [id number] Pan Martin 1950 M Date Provider Department Center 08/26/2023 Judit8-DEANNA MACIASGUSTABODayana JARAD [facility] Family History Problem Relation Age of Onset Coronary artery disease Father Stroke Father Family Status - Relation Status Age at Father Level of Service:97457 [place] OFFICE/OUTPATIENT NEW LOW MDM 30 MINUTES Normal [facility] Patient Letter FTMCon 2022 Patient [place] [facility] [place] (Inserted Image. Prema ble to display) November 30, 2022 [place] [address] GIANFRANCO MARTIN 1950 Dear Gianfranco Martin, Executive [...] Jf Sanches M.D., F.A.C.S. [facility] [address] [place], [place] [id number] , OPTION #3 SENT REGULAR/CERTIFIED MAIL Normal [facility] Coding Summary.on 10-27-2022 Coding Summary. CD:[id number] Gh0bWw +PGhlYWQ+EN0TLQDvZ47jaFGcg B7tO1NNQSfTOrbvSJZXUEaWZuG qlpThHW2rhNYlGZJh IC8+UI3bMNRaRzdqgDXkw6A4kL H6E78ego2zJDsihIS8VAJrOvYe zpyjg8dnpOb0IHmqUpgqTkHc OKHrcE14HSI8nZ04Dj10pCUzdD Uft6rdnXs7JbGvVAElTWH3tIgb NBdeg5LyOMEsB60xcYMct2J2 KOHidRlcgGRgFjRjoXA0cP0jAN ccrcsge5dfwqkpJco7bm14iCAt z0P9gZW6E8CwvzT8IAXucTKi RixqiPRCbU9styfhq9vtiyqjVa UdZCJzMBt8BPp7DLDgcIioUzNj ET37XRQ5FVTwbtOeU0HwBESl xQsgCdU7k2F9Bv8EV3WGYcjcP9 VNTUFSWTwvdGQ+RM53cq19J3Oc XnfePyy8DBUkYGG7wAH6qU5k SUKaSBmjg9R8vIB2V6AqttAchq 9cd4blNGBdTXjgF51ydTMjg1H2 TXQdfQY1HBRfwYclDhLmwF23 Oyc+LNUcwGkre4ItXeqfj4ojb8 acqQs7YfftIEHvepYdxUenFYI0 k9ZoWf0mLFIseBC9eDG2tJ9l ReNdFvX4QWgfS101CpJjrRQuPm mfC38gO6PecFX+MYDjUel4ANIe bIakSO7dX4VvNCWdhjgywUKr mIjmKU2lIMFzdgzwSVThoP1rHN AeJ8j3RfDnUrI2FUgnK7BoZUAz rfwbYe86oK7uMiEpOuH3NIox P6QonbD2SYAyxSKxRFraGBY8T8 3lh3N0UTUkVXWvKNC7kWC6lQ6u bGlnbjogbGVmdDsgdmVydGlj QLviNWnrE249UAGrfYvcSgPmVZ luZyBEYXRlOiAgMDMvMDgvMjAy MzwvdGQ+KMRbWMF4iGxfACTy nEFwRBfdHi6glRvusIzcHT0dEK NjpanlTRDxxO4hJBXzwKJteMsf TO1cDMFpmzvbv284EtAmRUS9 AEZqpIJjD6EmxE5eZdRgENWjJM AqP2DwwMSnYZssP928WSmwJwI5 CRTodpFrV3FaZWEwbVofKsW6 e2W1Gs1Cu8ZnonomH5YwwLQxUv XiHeqePUx6Z2ZlKeyjoTU+PC90 YKJyYY39NVe5PLP5nRhtDOlz FHJxR9VbcV2lKmZmDTZfJRIqHd c+PHRhYmxlIHdpZHRoPScxMDAl LbQvhZsaEG3aWh4qWRJmRLOr yBwaxPTlHxIpg2shOSDuJOidEE 1zePyxT9EovNJ2FGHxw6x0Mr13 L50cZ2ZlkKI+DMUisCL7tAP2 uI1uQyDyEcT9QUqaQ116NjElaW OlLlimc5tgg4aleRn0WiP7WXBx iwCstPagCZB6l7BtXc78E15t IHdpZHRoPSIxNSUiIHZhbGlnbj 2dtX1sVm4+YHJniLY7vHZ5wH6b GdPiJmF0ISygV247RkPfbPRj Qfarp2vuu3yhrYv7QcJiMJRzyp EfbJzrLFU7q3KvPf05E7MrmAem a5YlRog0he16yGRvd9B1eDX8 D4VoYLDqhaakfUHdgHbhKV5wQP BaznflZZZkkX7vMHCyO3d1RlCm FbT2ADqlO1SoucI2GRFwnMDz HQLmlYNGeG1apnixs8hpirhkZv MsIHAoMIq8NSf3IHAuoVhhCxMh RSV4XtS1RWC5kFOhwD0joJcr dxmtgP4eQxy+YJC5rDSgdJDALE 1lOjwvdGQ+HANtNNW6gZpuCSdz DERmfT7lZVPiJ0c0HcWjAtY2 LMuxK2UptcI6UTZprXNoLILlpD BHxQ7dzwoqd4ybxzynYlEcEHEq OEi1PYu3YMUusPepTyPvXWD2 UjX7KQA7mOVrcH9paYbiwgritB 9wOyc+ZrjvgPmaPHP7JBh3W1Wy Qum1LTJldQdcGB5taBTrVOes Dd4vnEkltHzuMM2gDYRopmxix4 75BvPdj9dkEEKqjBKmEJzhTHD7 P06rq2C7IHVhLEFqRZM9aZM2 xC9lfTdvgbvgxBWndBslbuQinA adLEjkIWyyV405USPteDmbQoYn GLh6L0XjRex8XQLbeCcjDC6c nKGhXTysMs7poRzmsYcbSW3sQY Ltsepkn107MtElz1nbONZcxAOe CJygYAL6J07ar3F7LGHkUKWa AIU5iIU4yL8bhDxrmsmqbHGstG xtxeFgcYdeDWfcKNerV114QAJu zDqvReKthGt4W8ZlMlu4DGGv yMqdHF5lrRGhUBmzIk6fjJspxZ vvXB3jCLEjnwuih761VmVal7wm IDUtaDDrICknHAG1S56kv3Y8 AUQvBQMnJIP2dKN6yG1lvHonfo ogbGVmdDsgdmVydGljYWwtYWxp L983NVEyxImlNiShrFqfsdVn OPjqXRf1X1MhCguojNR+PC90YW OySV00oOAujMIab2jtfDc5QqWr AFKoGVY1oQxfGGiel0DbRWVc D56ccXUne2S4EGRopMftwPZwLk EcbTD5qM1yFSnmyddbn3elfzvz Pswqb3xvsa60lO25V39lNLod NNWoTQVoTKKsXBDpbIekpi3jlD 9wIi8+XNReiNR2bGM7xD8dSGLh RwV2KHteG066WyOutVKdBxid c6jjs3yclHj7QhQ4OFByiwVkiP mnECG4e4FaQz41G12pVSuoLILz YUUzHDLeEQTfsOlysc3sfQ5e Ii8+OGMkaHE8gZG1uW9tYbKqNu V6TMdoO996GyXdwDItUzajU57u O1HtnMT+NNZkWfr2MVCzkLvf RS2baHXsBJgeHd8vSAK1HwCnHj LzMCktN8NmZEPmlmvcnebzdKH3 OCNlCJCazK05Ql1cyUilEXXj qBIYzM8nwoxmu5kcwoouCuLeSJ HaGGm1EFj0MOSvxBitVzWzFLF0 YyF6TCH8wSWgvG1miOgqbgos pD5tJ8LgEMLgxjsnEw82fR1xMq CrYtP6TLknDqu+UFVMTEFOTywg RahLF2wDSrkztRI+PHRkIHN0 nRvqSFigYJElrC7eOHUzP8n2Mb NwYnD2NUfoI8NqOVDmynznJp13 pJ2gOhWcElH1UEtlP5XqmoT1 UYAstWVfRSfvNVI6X04jt5Y1JD RsXQBqSMN0wWP4gV9scXqyklbn bGVmdDsgdmVydGljYWwtYWxp L010JBIsuDszZtA6AuC9AbX7UM E5G5UgEnz4BCXohBlzQQ4beXYv DVkwNw9fvDcnoPrnAP8bORPx eqnlBYFngM6vBFUkrHMjnGprHU 1bYQEqxswim629KkHzHCV9LBZa cHBdE9MhoV6qWuVmYPSfVQDm K2JgtGUjGHslZ762HXnvHxP2OO VnhyJdT2WgDFGqvVawRlX6i5A6 Xh14AgIHHFWpgmkkvMV+PHRk GLY4qEieTXztCTTgqA1zOZRyR7 d4RtVeHmQ9KNkkB4AgGHGdfbmj Cs49tB5iJeSsFlJ0ADmdK1Al gaX7FCByfTEpZWfrBIF9F42kq6 Y3OBYiDEZsHCF4nHR0kS2jlQdb bjogbGVmdDsgdmVydGljYWwt NDglN332ACVknQqiXy6fvLT8E6 FbUtt5BVSskTkaDO5zhSIqYWuh De9ztOfahXypRQ6nQEVvdgmg YEDadI8mILDdiAQhyKsgFY6nYS Esyqjzy915OfMuBBE7ZMXevVOb G9EdhK1lJtHcXIVgCBXnU7Zs rAHnHHgcQ843NFpxJjW6FNCfis XcS2CxCBWkvOiiZuR3j6Z9Uy1W ARIgBNHhtLPeQwD0P7ZxJxxb dHI+UT12AOYxBB71vRNzfXBgo4 verKr9TjGaGIEyIOT8eUotRJpf r2PzNSBoW79nhCWev1X4AAJy zIqyjKDwQdEysTK2sR7bUZfmua dho9prvqvaZwwhn8dlqe08sP03 F42yGCorZDMtYRZjWMZkRXBm eMieqb7uhY7bBd7+YJYujNZ3xF O2aY3dDgZaXpW8VUaoP949OxVk yKDrBlkrg6mdn7hkjQj1TuDf FNRnrqShzPoxZGH8y0QgTa19Q2 9sIHdpZHRoPSIyMCUiIHZhbGln re8flL0yLq8+BL9vh6hyle82 mP20kAX+RUAnLYW3lGidNJklFB EcuY1vQAyzQiP7ZNEsYbIecH38 pRNuAFdlMg6pnIkyrCjkYZ4v SCVmfklpy010MdYjs2jdWTKklS IsFNcnSEY7U12dy5L9OQSvMJTp PQY4zJS1pL6ryZxtpahscENn vVkmtfIbdTohLVpzIMbaI439ET VjsTeyXwEauHOtQ1ctuqBUHS7k OjwvdGQ+TPRbODN7wPxnXOiw JZTzfU9cHJYnH5p1XkLzKvI7EC dqA5AcsdT7FEMjbURjNHNrcWKM mQ2yffcdd2yvnpabEdFhTDLi ZTt3KCo1VPZhkYbeImOoJSH7Wh Q8GJQ2pLXqgX6mhZhufmpinI4w Oyc+RklOOjwvdGQ+PHRkIHN0 oKrlAEhrOMAynS5pXNZxZ6k5Gj RlXdK0ERqfP3WlwgJ7YCPnbXSv OGBgbDQKuS6gytmbe7wxuskf TsLcVRMuHMb7ELx7WRZkaOwiPy RbDMU2OyC6LSP4qCMpnG3etQhc hackpR8bNrk+TVJOOjwvdGQ+ OGJbLKZ8kZaiHRpoSWIvpD2fJJ DqX5e4CzBoQcV4PQliH6QkxcV5 OQOneGRaAMKozNPZcR8rmksr c0nhfvmcZpQoOCFcXIm9IYw5DO EvjXhdYzMyNKQ8BvG8TIC9rIGg yZ0ozOvmbmsmqA1qUjk+UGF5 AEF3KX04JG06R6ZkNmtgrXMdtQ U+PHRhYmxlIHdpZHRoPScxMDAl QdRjvOdbJK0fGj6eFFPiFMMu bGxh (more content not included)... Normal [facility] 10-27-2022 Lab Reports [id number]:127 Normal [facility] Ambulatory Visit Summaryon 0 10-15-2022 Ambulatory Visit Summary GIANFRANCO MARTIN :1950 Visit Date:10/15/2022 Ambulatory Visit Instructions Your Diagnosis Elevated PSA Benign prostatic hyperplasia (BPH) with post-void dribbling Tests Performed Urnls Dip Stick Auto w/o Microscopy POC 69133 Your Care Team Attending Physician - Jf [...] SELENA LEONG, Jf Reis, STEFANI When: Where: [address] [place] [address]- Medications What When Instructions Unchanged amlodipine (amLODIPine [...] Urnls Dip Stick Auto w/o Microscopy POC 42519 (10/15/2022) Bilirubin Urine Dipstick - Negative Blood Urine Dipstick - Negative Glucose Urine Dipstick - Negative Ketones Urine Dipstick - Negative Leukocytes Urine Dipstick - Negative Nitrite Urine Dipstick - Negative Protein Urine Dipstick - Negative Specific [place] Urine Dipstick - 1.010 Urine Appearance Urine [...] of these risk factors: ? Being of -[place] descent. ? Having a family history of prostate cancer. ? If you are age 55?69, talk with your health care provider about (more content not included)... Normal [facility] Patient Educationon 10-15-19 Patient Education Oncology [...] of these risk factors: ? Being of -[place] descent. ? Having a family history of [...] Are older than age 55. ? Are -[place]. ? Have a father, brother, or uncle [...] With When Contact Information SELENA LEONG, Jf Resi, URL [address] [id number]- Additional Instructions: PSA today - await results Patient Education Prostate Cancer Screening Dori Huggins, personally scribed for Dr. Sanches on 10/15/2022 [...] Father. Immunizations Vaccine Date Status Comments SARSCoV2 mRNA(evghuzabn-oujb-bimnmj ) vac 03/12/2022 Recorded 2022-06-28: TPV70 SARS-CoV-2 [...] Dipstick: Negativ (more content not included)... Normal [facility] Comment on above: Result Comment: Elec tronically Signed By: Jf SANCHES MD\.br\Date and Time Signed: 10/15/22 11:23 EST\.br\Electronically Co-Signed By: Dori Wynne\.br\Date and Time Co-Signed: 10/15/22 11:19 EST\.br\Electronically Co-Signed By: Dori Wynne\.br\Date and Time Co-Signed: 10/15/22 11:21 EST Creatinine (Bld) [Mass/Vol]O rdered By: Jf Sanches on 07-14-2022 Creatinine [Mass/Vol] 0.8 mg/dL 0.6-1.3 [facility] Comment on above: ER/ESD physician is notified/shown all ISTAT results.Critical values may be confirmed by laboratory testing ifdeemed necessary by ER attending doctor. ISTAT XRay CREon 07-14-2022 Creatinine [Mass/Vol] 0.8 mg/dL Normal 0.6-1.3 [facility] Comment on above: Result Comment: ER/E SD physician is notified/shown all ISTAT results. Critical values may be confirmed by laboratory testing if deemed necessary by ER attending doctor. Performed By: #### I SCRE #### [facility] [address] [place] [address] Point of Care testing , ISTAT GFR ( > 60 Normal [facility] Comment on above: Result Comment: GFR estimated reference range: According to KDOQI guidelines, <60 ml/min/1.73m2 is sufficient to diagnose a patient with chronic kidney disease. PERFORMED BY: [place] [address] PATHOLOGIST [employer] MADELYN LAIRD M.D. Performed By: #### I SCRE #### [address] Point of Care testing , ISTAT GFR (Non- Am > 60 Normal [facility] Comment on above: Performed By: #### I SCRE #### [facility] [address] [place] [address] Point of Care testing , No Panel InformationOrdered By: Jf Sanches on 07-14-2022 POC Estimated GFR > 60 [facility] Comment on above: GFR estimated refere nce range: According to KDOQI guidelines, <60 ml/min/1.73m2 is sufficient to diagnose a patient with chronic kidney disease. POC Estimated GFR Non- Amer > 60 [facility] Pre-Certification Formon Pre-Certification Form [id number]:127 Normal [facility] Lab Reportson 07-05-2022 Lab Reports [id number]:127 Normal [facility] Physician Referralon 022 Physician Referral [id number]:127 Normal [facility] Ambulatory Visit Summaryon 1 08-28-2021 Ambulatory Visit [...] Schedule the Following Appointments Follow Up with Jf SANCHES MD, URL When: Where: [facility] [address] , [place] [address]- [phone] Medications What When Instructions Unchanged amlodipine (amLODIPine [...] prostate gland (more content not included)... Normal [facility] Historical Records Officeon 06-28-2022 Historical Records Office [id number]:127 Normal [facility] Patient Educationon 06-28-20 Patient Education Urology Benign [...] Follow these instructions at home: ? Take jeey-agk-bdtxddo and prescription medicines only as told by [...] You d (more content not included)... Normal [facility] PSA, FREE AND TOTAL RATIOon 05-21-2022 % Free PSA 7.1 % Normal [facility] Comment on above: Result Comment: The table [...] men. Performed By: #### P SAFREE #### [facility] [address] [place] [address] Dr. Zaira Benoit Prostate specific Ag [Mass/Vol] 6.8 ng/mL Critically high 0.0-4.0 [facility] Comment on above: Result Comment: Bryant SEXTON methodology. . According to the [place] [employer], Serum PSA should decrease and [...] disease. Performed By: #### P SAFREE #### [facility] [address] [place] [address] Dr. Zaira Benoit PSA, Free 0.48 ng/mL Normal N/A [facility] Comment on above: Result Comment: Bryant woodruff ECLIA methodology. Performed By: #### P SAFREE #### [facility] [address] [place] [address] Dr. Zaira Benoit INSULINon 05-13-2022 Insulin 7.8 uIU/mL Normal 2.6-24.9 [facility] Comment on above: Performed By: #### I NSULIN #### [facility] [address] [place] [address] Dr. Zaira Benoit CBC AUTO DIFFon 05-12-2022 BASO # 0.1 103/ul Normal 0.0-0.1 [facility] Comment on above: Performed By: #### C BC #### [facility] [address] [place] [address] Dr. Zaira Benoit Basophils/100 WBC (Bld) 0.9 % Normal 0.2-2.0 [facility] Comment on above: Performed By: #### C BC #### [facility] [address] [place] [address] Dr. Zaira Benoit EO # 0.2 103/ul Normal 0.0-0.7 [facility] Comment on above: Performed By: #### C BC #### [facility] [address] [place] [address] Dr. Zaira Benoit Eosinophils/100 WBC (Bld) 2.1 % Normal 0.9-7.0 [facility] Comment on above: Performed By: #### C BC #### [facility] [address] [place] [address] Dr. Zaira Beonit Erythrocyte distribution width (RBC) [Ratio] 13.2 % Normal 11.0-15.0 [facility] Comment on above: Performed By: #### C BC #### [facility] [address] [place] [address] Dr. Zaira Benoit Hematocrit (Bld) [Volume fraction] 46.6 % Normal 42.0-54.0 [facility] Comment on above: Performed By: #### C BC #### [facility] [address] [place] [address] Dr. Zaira Benoit Hemoglobin (Bld) [Mass/Vol] 15.5 g/dL Normal 14.0-18.0 [facility] Comment on above: Performed By: #### C BC #### [facility] [address] [place] [address] Dr. Zaira Benoit IG # 0.02 10e3/ul Normal 0.00-0.03 [facility] Comment on above: Performed By: #### C BC #### [facility] [address] [place] [address] Dr. Zaira Benoit IG % 0.3 % Normal 0.0-0.5 [facility] Comment on above: Performed By: #### C BC #### [facility] [address] [place] [address] Dr. Zaira Benoit LYMPH # 2.6 103/ul Normal 1.2-3.8 [facility] Comment on above: Performed By: #### C BC #### [facility] [address] [place] [address] Dr. Zaira Benoit Lymphocytes/100 WBC (Bld) 36.9 % Normal 20.5-60.0 [facility] Comment on above: Performed By: #### C BC #### [facility] [address] [place] [address] Dr. Zaira Benoit MANUAL DIFF REQ NO Normal [facility] Comment on above: Performed By: #### C BC #### [facility] [address] [place] [address] Dr. Zaira Benoit MCH (RBC) [Entitic mass] 33.2 pg Normal 25.9-34.0 [facility] Comment on above: Performed By: #### C BC #### [facility] [address] [address] [address] Zaira Benoit MCHC (RBC) [Mass/Vol] 33.3 g/dL Normal 29.9-35.2 [facility] Comment on above: Performed By: #### C BC #### [facility] [address] [address] [address] Zaira Benoit MCV (RBC) [Entitic vol] 99.8 fL Critically high 80.0-94.0 [facility] Comment on above: Performed By: #### C BC #### [facility] [address] [address] [address] Zaira Benoit MONO # 0.6 103/ul Normal 0.3-0.8 [facility] Comment on above: Performed By: #### C BC #### [facility] [address] [address] [address] Zaira Benoit Monocytes/100 WBC (Bld) 9.1 % Normal 1.7-12.0 [facility] Comment on above: Performed By: #### C BC #### [facility] [address] [address] [address] Zaira Benoit NEUT # 3.6 103/ul Normal 1.4-6.5 [facility] Comment on above: Performed By: #### C BC #### [facility] [address] [address] [address] Zaira Benoit Neutrophils/100 WBC (Bld) 50.7 % Normal 43.0-75.0 [facility] Comment on above: Performed By: #### C BC #### [facility] [address] [address] [address] Zaira Benoit Platelet mean volume (Bld) [Entitic vol] 9.3 fL Critically low 9.5-13.5 [facility] Comment on above: Performed By: #### C BC #### [facility] [address] [address] [address] Zaira Benoit PLT 191 103/ul Normal 150-450 [facility] Comment on above: Performed By: #### C BC #### [facility] [address] [address] [address] Zaira Benoit RBC 4.67 106/ul Critically low 4.70-6.10 [facility] Comment on above: Performed By: #### C BC #### [facility] [address] [address] [address] Zaira Benoit WBC 7.0 103/ul Normal 4.0-11.0 [facility] Comment on above: Performed By: #### C BC #### [facility] [address] [address] [address] Zaira Benoit GLYCOHEMOGLOBIN A1Con 2021 ADA RECOMMENDATION SEE BELOW Normal [facility] Comment on above: Result Comment: ADA RECOMMENDED LIMIT 4.0 - 6.0 ADA THERAPEUTIC TARGET < 7.0 ACTION SUGGESTED > 7.0 Performed By: #### A 1C #### [facility] [address] [place] [address] Dr. Zaira Benoit Glucose [Mass/Vol] 151 mg/dL Normal [facility] Comment on above: Performed By: #### A 1C #### [facility] [address] [address] [address] Zaira Benoit HbA1c (Bld) [Mass fraction] 6.9 % Critically high 4.5-6.2 [facility] Comment on above: Performed By: #### A 1C #### [facility] [address] [place] [address] Dr. Zaira Benoit LIPID PROFILEon 05-12-2022 CHOL-HDL RATIO NORM SEE BELOW Normal [facility] Comment on above: Result Comment: 3.3 - 4.4 LOW RISK 4.4 - 7.1 AVERAGE RISK 7.1 - 11.0 MODERATE RISK >11.0 HIGH RISK Performed By: #### L IPID, URIC, CMP #### [facility] [address] [place] [address] Dr. Zaira Benoit Cholesterol [Mass/Vol] 132 mg/dL Normal <=200 [facility] Comment on above: Performed By: #### L IPID, URIC, CMP #### [facility] [address] [address] [address] Zaira Benoit Cholesterol in HDL [Mass/Vol] 53 mg/dL Normal 40-60 [facility] Comment on above: Performed By: #### L IPID, URIC, CMP #### [facility] [address] [address] [address] Zaira Benoit Cholesterol in LDL [Mass/Vol] 59.6 mg/dL Normal [facility] Comment on above: Performed By: #### L IPID, URIC, CMP #### [facility] [address] [address] [address] Zaira Benoit Cholesterol.total/Ch olesterol in HDL [Mass ratio] 2.5 {ratio} Normal [facility] Comment on above: Performed By: #### L IPID, URIC, CMP #### [facility] [address] [address] [address] Zaira Benoit HDL NORMAL > or = 60 mg/dl - LO W CARDIOVASCULAR RISK <40 mg/dl - HIGH CARDIOVASCULAR RISK Normal [facility] Comment on above: Performed By: #### L IPID, URIC, CMP #### [facility] [address] [address] [address] Zaira Benoit LDL CALC NORMAL SEE BELOW Normal [facility] Comment on above: Result Comment: <100 mg/dl OPTIMAL 100 - 129 mg/dl NEAR OR ABOVE OPTIMAL 130 - 159 mg/dl BORDERLINE HIGH 160 - 189 mg/dl HIGH >190 mg/dl VERY HIGH Performed By: #### L IPID, URIC, CMP #### [facility] [address] [address] [address] Zaira Benoit Triglyceride [Mass/Vol] 97 mg/dL Normal <=150 [facility] Comment on above: Performed By: #### L IPID, URIC, CMP #### [facility] [address] [address] [address] Zaira Benoit VLDL CALC 19.4 mg/dL Normal [facility] Comment on above: Performed By: #### L IPID, URIC, CMP #### [facility] [address] [address] [address] Zaira Benoit PROF 14(COMP METB)on 022 Albumin [Mass/Vol] 3.9 g/dL Normal 3.4-5.0 [facility] Comment on above: Performed By: #### L IPID, URIC, CMP #### [facility] [address] [address] [address] Zaira Benoit Albumin/Globulin [Mass ratio] 1.1 {ratio} Normal [facility] Comment on above: Performed By: #### L IPID, URIC, CMP #### [facility] [address] [address] [address] Zaira Benoit ALP [Catalytic activity/Vol] 92 U/L Normal 46-116 [facility] Comment on above: Performed By: #### L IPID, URIC, CMP #### [facility] [address] [address] [address] Zaira Benoit ALT [Catalytic activity/Vol] 31 U/L Normal 16-63 [facility] Comment on above: Performed By: #### L IPID, URIC, CMP #### [facility] [address] [address] [address] Zaira Benoit Anion gap [Moles/Vol] 12.2 mmol/L Normal [facility] Comment on above: Performed By: #### L IPID, URIC, CMP #### [facility] [address] [place] [address] Dr. Zaira Benoit AST [Catalytic activity/Vol] 20 U/L Normal 15-37 [facility] Comment on above: Performed By: #### L IPID, URIC, CMP #### [facility] [address] [address] [address] Zaira Benoit Bilirubin [Mass/Vol] 0.4 mg/dL Normal 0.2-1.0 [facility] Comment on above: Performed By: #### L IPID, URIC, CMP #### [facility] [address] [address] [address] Zaira Benoit Calcium [Mass/Vol] 8.8 mg/dL Normal 8.5-10.1 [facility] Comment on above: Performed By: #### L IPID, URIC, CMP #### [facility] [address] [address] [address] Zaira Benoit Chloride [Moles/Vol] 101 mmol/L Normal 98-107 [facility] Comment on above: Performed By: #### L IPID, URIC, CMP #### [facility] [address] [address] [address] Zaira Benoit CO2 [Moles/Vol] 29.3 mmol/L Normal 21.0-32.0 [facility] Comment on above: Performed By: #### L IPID, URIC, CMP #### [facility] [address] [address] [address] Zaira Benoit Creatinine [Mass/Vol] 0.88 mg/dL Normal 0.70-1.30 [facility] Comment on above: Performed By: #### L IPID, URIC, CMP #### [facility] [address] [address] [address] Zaira Benoit EGFR-AF PARAGUAYAN >60 Normal >=60 [facility] Comment on above: Performed By: #### L IPID, URIC, CMP #### [facility] [address] [place] [address] Dr. Zaira Benoit EGFR-NON AF PARAGUAYAN >60 Normal >=60 [facility] Comment on above: Performed By: #### L IPID, URIC, CMP #### [facility] [address] [address] [address] Zaira Benoit Globulin (S) [Mass/Vol] 3.6 g/dL Normal [facility] Comment on above: Performed By: #### L IPID, URIC, CMP #### [facility] [address] [address] [address] Zaira Benoit Glucose [Mass/Vol] 128 mg/dL Critically high 74-[address] [facility] Comment on above: Performed By: #### L IPID, URIC, CMP #### [facility] [address] [address] [address] Zaira Benoit Potassium [Moles/Vol] 4.5 mmol/L Normal 3.5-5.1 [facility] Comment on above: Performed By: #### L IPID, URIC, CMP #### [facility] [address] [place] [address] Dr. Zaira Benoit Protein [Mass/Vol] 7.5 g/dL Normal 6.4-8.2 [facility] Comment on above: Performed By: #### L IPID, URIC, CMP #### [facility] [address] [place] [address] Dr. Zaira Benoit Sodium [Moles/Vol] 138 mmol/L Normal 136-145 [facility] Comment on above: Performed By: #### L IPID, URIC, CMP #### [facility] [address] [place] [address] Dr. Zaira Benoit Urea nitrogen [Mass/Vol] 4.0 mg/dL Critically low 7.0-18.0 [facility] Comment on above: Performed By: #### L IPID, URIC, CMP #### [facility] [address] [place] [address] Dr. Zaira Benoit Urea nitrogen/Creatinine [Mass ratio] 4.5 mg/mg Normal [facility] Comment on above: Performed By: #### L IPID, URIC, CMP #### [facility] [address] [place] [address] Dr. Zaira Benoit URIC ACID SERUMon 05-12-2022 Urate [Mass/Vol] 7.5 mg/dL Critically high 3.5-7.2 [facility] Comment on above: Performed By: #### L IPID, URIC, CMP #### [facility] [address] [place] [address] Dr. Zaira Benoit No Panel Information [facility] Vital Signs Date Time Vital Sign Value Performing Clinician Sohail lovett 10-24-2023 14:53-0500 Body weight 97.52 kg Ale Hickman MD Work Phone: [facility] 10-24-2023 14:53-0500 Diastolic blood pressure 66 mm[Hg] Ale Hickman MD Work Phone: [facility] 10-24-2023 14:53-0500 Heart rate 79 /min Ale Hickman MD Work Phone: [facility] 10-24-2023 14:53-0500 Systolic blood pressure 157 mm[Hg] Ale Hickman MD Work Phone: [facility] 10-15-2022 10:45-0500 Diastolic blood pressure 79 mm[Hg] Jf SANCHES [facility] 10-15-2022 10:45-0500 Heart rate 86 /min Jf SANCHES [facility] 10-15-2022 10:45-0500 Systolic blood pressure 128 mm[Hg] Jf SANCHES [facility] 06-28-2022 13:37-0500 Blood Pressure Location Jf SANCHES [facility] 06-28-2022 13:37-0500 Diastolic blood pressure 89 mm[Hg] Jf SANCHES [facility] 06-28-2022 13:37-0500 Heart rate 74 /min Jf SANCHES [facility] 06-28-2022 13:37-0500 Respiratory rate 16 /min Jf SANCHES [facility] 06-28-2022 13:37-0500 Systolic blood pressure 140 mm[Hg] Jf SANCHES [facility] Encounters Encounter Date Encounter Type Care Provider Facility Start: 05-31-2024 End: 05-31-2024 ambulatory Ale Hickman MD Work Phone: Urology Comment on above: Elevated prostate sp ecific antigen (PSA) (Primary Dx); Prostate cancer (HCC); Encounter for observation for other suspected diseases and conditions ruled out Start: 05-31-2024 End: 05-31-2024 Telemedicine consultation with patient Ale Hickman MD Work Phone: Urology Start: 05-31-2024 End: 06-01-2024 Telephone encounter Ale Hickman MD Work Phone: Urology Start: 05-25-2024 End: 05-25-2024 ambulatory Ale Hickman MD Work Phone: Urology Start: 05-25-2024 End: 05-25-2024 Telephone encounter Ale Hickman MD Work Phone: Urology Comment on above: Results; Appointment Start: 03-06-2024 End: 03-06-[address] Not Available Start: 02-09-2024 End: 02-09-2024 ambulatory KADY CROW Not Available Start: 02-09-2024 End: 02-09-2024 ambulatory [facility] Start: 01-26-2024 End: 01-26-2024 ambulatory KAIA EGAN Not Available Start: 12-27-2023 End: 12-27-2023 ambulatory MARQUIS WEAVER Facility:[facility] Start: 12-27-2023 End: 12-27-2023 Patient encounter procedure [...] Start: 12-08-2023 End: 12-08-2023 ambulatory ALE HICKMAN Facility:[facility] Start: 12-08-2023 End: 12-08-2023 Patient encounter procedure Ale Hickman MD Work Phone: Urology Comment on above: Elevated prostate sp ecific antigen (PSA) (Primary Dx); APPOINTMENT CANCELLED Start: 12-08-2023 End: 12-08-2023 Telemedicine consultation with patient Ale Hickman MD Work Phone: [facility] Start: 12-08-2023 Telephone encounter Ale Hickman MD Work Phone: Urology Start: 11-21-2023 End: 11-22-2023 ambulatory Trevor Forte MD Facility:[facility] Start: 11-17-2023 End: 11-17-2023 ambulatory RAUL SUN Facility:[facility] Start: 10-24-2023 End: 10-24-2023 ambulatory RAUL SUN Facility:[facility] Start: 10-24-2023 End: 10-24-2023 Patient encounter procedure Ale Hickman MD Work Phone: Urology Comment on above: Elevated prostate sp ecific antigen (PSA) (Primary Dx); BPH without obstruction/lower urinary tract symptoms Start: 10-21-2023 End: 10-21-2023 ambulatory [facility] Start: 09-21-2023 End: 09-21-2023 ambulatory [facility] Start: 08-26-2023 End: 08-26-2023 ambulatory [facility] Start: 06-27-2023 End: 06-27-2023 ambulatory RAUL SUN Facility:[facility] Start: 06-06-2023 End: 06-06-2023 ambulatory RAUL SUN Facility:[facility] Start: 06-06-2023 End: 06-06-2023 Patient encounter [...] Start: 10-15-2022 End: 10-16-2022 ambulatory Jf SANCHES [place] [place] Start: 10-15-2022 End: 10-16-2022 ambulatory Jf SANCHES Facility:[facility] Start: 10-15-2022 End: 10-15-2022 Lab Drop off Jf SANCHES [facility] Start: 10-15-2022 End: 10-15-2022 Patient encounter procedure Jf SANCHES [facility] Start: 07-14-2022 End: 07-14-2022 ambulatory Daina Judge Facility: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 REACH OPERATOR-C Daina Judge Work Phone: [facility] [place] Start: 06-28-2022 End: 06-29-2022 ambulatory Jf SANCHES Facility:[facility] Start: 06-28-2022 End: 06-28-2022 Patient encounter procedure Jf SANCHES [facility] Start: 06-16-2022 End: 06-16-2022 Patient encounter procedure Radha Perez MD Work Phone: Ophthalmology Comment on above: After-cataract obscu ring vision, left (Primary Dx); Pseudophakia, left eye; Nuclear senile cataract of right eye; History of retinal detachment - left eye; Epiretinal membrane (ERM) of left eye; Type 2 diabetes mellitus without retinopathy (HCC) Start: 05-20-2022 End: 05-21-2022 ambulatory ADINA JUDGE Facility:[facility]1 Start: 05-12-2022 End: 05-13-2022 ambulatory [...] above: Performed By: #### P SAD #### [facility] [address] [place] [address] Dr. Zaira Benoit Start: 06-16-2022 Post-cataract laser surgery Radha Perez MD Work Phone: Start: 05-12-[address] ZOLTAN SANCHES . Comment on above: Performed By: #### P SASC #### [facility] [address] [place] [address] Dr. Zaira Benoit Start: 02-17-2022 Computerized ophthal [...] PM EDT Office Visit [facility] [address] [place], [place] [id number] Marquis Weaver S, OD [address] [place] [address] Annual Full Eye Exam with Mac OCT Ophthalmology Comment on above: Annual Full Eye Exam with Mac OCT Start: 12-26-2024 Glaucoma screening Dilated Retinal E m [facility] Start: 2024 RSV Vaccine (1 - 1-d ose 75+ series) RSV Vaccine (1 - 1-dose 75+ series) [facility] Start: 06-27-2024 Glaucoma screening Dilated Retinal E xam [facility] Start: 06-06-2024 Hepatitis C antibody , confirmatory test Dilated Retinal Exam [facility] Start: 05-31-2024 End: 06-30-2025 MR Prostate WO and W contrast IV MRI PROSTATE WO/W IVCON Radiology Routine Encounter for observation for other suspected diseases and conditions ruled out Expected: 05/31/2024 (Approximate), Expires: 06/30/[address] [facility] Work Phone: Comment on above: Expected: 05/31/2024 (Approximate), Expires: 06/30/2025 Start: 05-31-2024 End: 06-30-2025 MR Unspecified body region 3D post processing MRI 3D POST PROCESSING Radiology Routine Elevated prostate specific antigen (PSA) Prostate cancer (HCC) Expected: 05/31/2024 (Approximate), Expires: 06/30/2025 [facility] Comment on above: Expected: 05/31/2024 (Approximate), Expires: 06/30/2025 Start: 05-31-2024 End: 08-30-2024 Prostate Specific Ag Free [Mass/volume] in Serum or Plasma PROSTATE SPECIFIC ANTIGEN, FREE Lab Routine Elevated prostate specific antigen (PSA) Prostate cancer (HCC) Encounter for observation for other suspected diseases and conditions ruled out Expected: 05/31/2024 (Approximate), Expires: 08/30/2024 [facility] Comment on above: Expected: 05/31/2024 (Approximate), Expires: 08/30/2024 Start: 04-22-2024 Covid-19 Vaccine () Covid-19 Vaccine () [facility] Start: 04-22-2024 Influenza vaccination [facility] Start: 12-27-2023 End: 12-27-2023 Patient encounter procedure 12/27/2023 1:00 PM EDT Office Visit [facility] [address] [place], [place] [id number] Marquis Weaver S, OD [address] [place], [place] [id number] RTC 6 months Dilate and oct [facility] Comment on above: RTC 6 months Dilate and oct [facility] Start: 11-24-2023 End: 02-23-2024 Prostate specific Ag [Mass/volume] in Serum or Plasma PSA/PROSTSPECAG DIAG Lab Routine Elevated prostate specific antigen (PSA) BPH without obstruction/lower urinary tract symptoms Expected: 11/24/2023 (Approximate), Expires: 02/23/[address] [facility] Work Phone: Comment on above: Expected: 11/24/2023 (Approximate), Expires: 02/23/2024 Start: 08-22-2023 Advance Directive Discussion Advance Directive Discussion [facility] Start: 08-22-2023 Behavioral Health Screening Behavioral Health Screening [facility] Start: 08-22-2023 Depression Assessment Depression Ass essment [facility] Start: 06-16-2023 Hepatitis C antibody , confirmatory test DILATED RETINAL EXAM [facility] Start: 04-22-2023 Covid-19 Vaccine () Covid-19 Vaccine () [facility] Start: 04-22-2023 Influenza vaccination [facility] Start: 03-01-2023 Hepatitis C antibody , confirmatory test DILATED RETINAL EXAM [facility] Start: 02-17-2023 Hepatitis C antibody , confirmatory test DILATED RETINAL EXAM [facility] Start: 12-11-2022 COVID-19 VACCINE (5 - Pfizer series) COVID-19 VACCINE (5 - Pfizer series) [facility] Start: 08-22-2022 ADVANCE DIRECTIVE DISCUSSION ADVANCE DIRECTIVE DISCUSSION [facility] Start: 08-22-2022 DEPRESSION ASSESSMENT DEPRESSION ASS ESSMENT [facility] Start: 05-07-2022 COVID-19 VACCINE (4 - Booster for Pfizer series) COVID-19 VACCINE (4 - Booster for Pfizer series) [facility] Start: 04-22-2022 Influenza vaccination [facility] Start: 08-22-2021 ADVANCE DIRECTIVE DISCUSSION ADVANCE DIRECTIVE DISCUSSION [facility] Start: 08-22-2021 DEPRESSION ASSESSMENT DEPRESSION ASS ESSMENT [facility] Start: 04-16-2021 COVID-19 VACCINE (3 - Booster for Pfizer series) COVID-19 VACCINE (3 - Booster for Pfizer series) [facility] Start: 07-25-2020 COLORECTAL CANCER SCREENING COLORECTAL CANCER SCREENING [facility] Start: 07-25-2020 FECAL OCCULT BLOOD FECAL OCCULT BLOO D [facility] Start: 07-25-2020 Hepatitis B screening URINE ALBUMIN:CREATININE RATIO [facility] Start: 07-25-2020 Hepatitis B surface antibody level LDL CHOLESTEROL [facility] Start: 07-25-2020 Screening for malign ant neoplasm of colon [facility] Start: 01-24-2020 Hemoglobin A1c measurement HbA1C [facility] Start: 01-24-2020 Hemoglobin A1c/Hemoglobin.total in Blood HBA1C [facility] Start: 2009 Hepatitis B Vaccine (1 of 3 - Risk 3-dose series) Hepatitis B Vaccine (1 of 3 - Risk 3-dose series) [facility] Start: 2009 RSV Vaccine (1 - 1-d ose 60+ series) RSV Vaccine (1 - 1-dose 60+ series) [facility] Start: 11-27-1999 SHINGRIX VACCINE (1 of 2) SHINGRIX VACCINE (1 of 2) [facility] Start: 1994 COLOGUARD (FIT-DNA) COLOGUARD (FIT-D NA) [facility] Start: 1994 Colonoscopy COLONOSCOPY [facility] Start: [address] COLONOGRAPHY [facility] Start: 1994 Screening for malign ant neoplasm of colon [facility] Start: 1994 SIGMOIDOSCOPY SIGMOIDOSCOPY [facility] Start: 1968 Urine microalbumin profile [facility] Start: 11-27-1967 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 Start: 11-27-1967 Hepatitis C screening Hepatitis C Sc [facility] Start: 1961 Adult depression screening assessment DEPRESSION SCREENING [facility] Start: 11-27-1959 3 comp foot exam completed DIABETIC FOOT EXAM [facility] Start: 11-27-1959 Diabetic foot examination Diabetic Foot Exam [facility] Start: 11-27-1955 Pneumococcal Vaccine : 65+ (1 - PCV) Pneumococcal Vaccine: 65+ (1 - PCV) [facility] Start: 11-27-1955 Pneumococcal Vaccine : 65+ (1 of 2 - PCV) Pneumococcal Vaccine: 65+ (1 of 2 - PCV) [facility] Start: 11-27-1955 PNEUMOCOCCAL: 65+ (1 - PCV) PNEUMOCOCCAL: 65+ (1 - PCV) [facility] Start: 1949 ABDOMINAL AORTIC ANEURYSM SCREENING ABDOMINAL AORTIC ANEURYSM SCREENING [facility] Start: 1949 Abdominal aortic aneurysm screening Abdominal Aortic Aneurysm Screening [facility] Immunizations Immunization Date Immunization Notes Care Provider Rosalind alvares 03-12-2022 SARS-CoV-2 mRNA (kucjwftlitq-ktaa-adtrf se) vaccine Jf SANCHES [facility] Comment on above: Result Comment: 2021: [id number] 11-14-2020 COVID-19 vaccine, ag e 12+ yr (PFIZER-BIONTECH - PURPLE TOP) Radha Perez MD Work Phone: [facility] Comment on above: Result Comment: 2021: [id number] 10-24-2020 COVID-19 vaccine, ag e 12+ yr (PFIZER-BIONTECH - PURPLE TOP) Radha Perez MD Work Phone: [facility] Comment on above: Result Comment: 2021: [id number] Payers Date Payer Category Payer Self-pay 2017 Unknown ANTHEM [employer] S AND BLUE SHIELD [employer]M MEDIBL[employer] HMO [id number] 2017-Present [phone] [address] [place] [address] O [id number] 2017 Unknown [id number] 1959 Medicare [id number] 1949 Unknown [id number] 1949 Unknown [id number] 1949 Unknown [id number] 1949 Unknown [id number] 1949 Unknown [id number] 1949 Unknown [id number] 1949 Unknown [id number] 1949 Unknown [id number] 1949 Unknown [id number] 1949 Unknown [id number] 1949 Unknown [id number] Medicare Medicare [id number] Unknown [id number] Social History Date Type Detail Facility Start: 11-03-2016 End: 06-16-2022 Tobacco smoking status NHIS Smokes tobacco daily [facility] History of tobacco use Cigarette Smoker [facility] Start: 11-03-2016 End: 10-24-2023 Cigarettes smoked current (pack per day) - Reported 1 [facility] Start: 11-03-2016 End: 06-16-2022 Tobacco use and exposure Smokeless tobacco non-user [facility] Start: 02-17-2022 End: 12-27-2023 Alcohol intake Current drinker of alcohol (finding) [facility] Start: 11-20-2018 History SDOH Alcohol Comment per day [facility] Start: 1950 Sex Assigned At Not on file [facility] Start: 06-28-2022 End: 10-15-2022 Tobacco smoking status Heavy tobacco smoker (finding) [facility] Start: 06-16-2022 End: 10-24-2023 Sex Assigned At Male [facility] Start: 1950 Sex Assigned At Male F [facility] National Score (1-10 0), lower number is lower risk 87 [facility] Medical Equipment Procedure Code Equipment Code Equipment Origin al Text Equipment Identifier Dates Lens Acrysof Iq +19.5 Diopter Natural Stableforce 0 D Biconvex 118.7 - [id number] Start: 02-07-2017 Functional Status Date Assessment Result Facility 10-15-2022 Functional Status N/A [facility] 06-28-2022 Functional Status N/A [facility] Clinical Notes 02-17-2022 to 06-01-2024 Telephone Encounter - Paty Lacey - 06/01/2024 10:53 AM EDTTelephone Encounter - Jessicacruz Paty - 06/01/2024 10:53 AM EDTTelephone Encounter - BonnieNegrita moran - 05/31/2024 3:54 PM EDT Note Date & Type Note Facility 06-01-2024 Telephone encounter Note Julius Hickman- Spoke to patient Told Patient I was calling to get him scheduled for PSA and MRI with a follow up to see you. 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 Pt explained his Urology provider, Dr Barroso at [facility], scheduled him an MRI and he was unable to lie flat and complete the MRI so he does not believe he will be able to do this. Pt stated Dr Barroso has been monitoring his prostate and they did several biopsies for prostate. Patient DECLINED to schedule at this time stating that if/when he needs to see Dr Hickman, he will call. I told him the order for the MRI and PSA is in, so should he call, he can get it scheduled. Paty Lacye June 01, 2024 11:08 AM [facility] 06-01-2024 Miscellaneous Notes Julius Hickman- Spoke to patient Told Patient I was calling to get him scheduled for PSA and MRI with a follow up to see you. 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 Pt explained his Urology provider, Dr Barroso at [facility], scheduled him an MRI and he was unable to lie flat and complete the MRI so he does not believe he will be able to do this. Pt stated Dr Barroso has been monitoring his prostate and they did several biopsies for prostate. Patient DECLINED to schedule at this time stating that if/when he needs to see Dr Hickman, he will call. I told him the order for the MRI and PSA is in, so should he call, he can get it scheduled. Paty Lacey June 01, 2024 11:08 AM Images from the original note were not included. Jovita Glover Urol Schedulers Pool Please schedule patient for an MRI Prostate and then for an OV to follow per request! LVM for pt to call back and schedule MRI and follow up. Mychart sent. documented in this encounter [facility] 05-31-2024 Telephone encounter Note Images from the original note were not included. Jovita Glover Urol Schedulers Pool Please schedule patient for an MRI Prostate and then for an OV to follow per request! LVM for pt to call back and schedule MRI and follow up. Mychart sent. [facility] 05-31-2024 Instructions Jovita Glovre - 05/31/2024 2:29 PM EDT PSA test and MRI Prostate Schedule office visit to follow documented in this encounter [facility] 05-31-2024 Note HNO ID: [id number] Author: ?, ?, ? Service: ? Author Type: ? Type: Progress Notes Filed: 05/31/2024 14:32 Note Text: INPATIENT TELEPHONE VISIT PROGRESS NOTE SERVICE DATE: 05/31/2024 SERVICE TIME: 2:00pm Gianfranco Martin has consented to this telephone encounter. Persons Present: patient Chief Complaint/Reason: discuss need for prostate biopsy HPI: Data Reviewed: Most recent labs PSA from [facility] on 05-18-24 = 16.17 (normal [...] TIME: 2:28PM By signing my name below, I, Jovita Glover, attest that this documentation has been prepared [...] is accurate and complete. Ale Hickman M.D. [facility] 05-31-2024 History of Present illness Narrative INPATIENT TELEPHONE VISIT PROGRESS NOTE SERVICE DATE: 05/31/2024 SERVICE TIME: 2:00pm Gianfranco Martin has consented to this telephone encounter. Persons Present: patient Chief Complaint/Reason: discuss need for prostate biopsy HPI: Data Reviewed: Most recent labs PSA from [facility] on 05-18-24 = 16.17 (normal [...] TIME: 2:28PM By signing my name below, I, Jovita Glover, attest that this documentation has been prepared under the direction and in the presence of Dr. Hickman. Ayde Patel Provider Attestation: Ale Huggins M.D., personally performed the services described in this documentation. All medical record entries made by the scribe were at my direction and in my presence. I have reviewed the chart and discharge instructions (if applicable) and agree that the record reflects my personal performance and is accurate and complete. Ale Hickman M.D. documented in this encounter [facility] 05-25-2024 Telephone encounter Note Call placed to patient in regards to message below. LVMM for patient to return call back to [phone], in regards to his recent lab results and orders on how Dr. Hickman would like to proceed. [facility] 05-25-2024 Miscellaneous Notes Call placed to patient in regards to message below. LVMM for patient to return call back to [phone], in regards to his recent lab results and orders on how Dr. Hickman would like to proceed. Please notify patient his PSA is very high and he is at high risk of having prostate cancer. he needs to schedule his prostate biopsy unless he had it done else where PSA from [facility] on 05-18-24 = 16.17 (normal values 0-4) Can be done in office under local or in ASC under MAC Ale Hickman MD documented in this encounter [facility] 05-25-2024 Telephone encounter Note Please notify patient his PSA is very high and he is at high risk of having prostate cancer. he needs to schedule his prostate biopsy unless he had it done else where PSA from [facility] on 05-18-24 = 16.17 (normal values 0-4) Can be done in office under local or in ASC under MAC Ale Hickman MD [facility] Work Phone: 05-25-2024 Note HNO ID: [id number] Author: ALE HICKMAN MD Service: ? Author Type: Physician Type: Progress Notes Filed: 05/25/2024 07:14 Note Text: PSA still rising PSA from [facility] on 05-18-24 = 16.17 (0-4) [facility] 05-25-2024 History of Present illness Narrative PSA still rising PSA from [facility] on 05-18-24 = 16.17 (0-4) documented in this encounter [facility] 02-09-2024 Note Greatly improved wit h increased dose of lasix. Trace edema noted today Renal function stable [facility] 02-09-2024 Note Hypertension is unch anged- stable well controlled Continue current treatment regimen. Dietary sodium restriction. Continue current medications. Blood pressure will be reassessed at the next regular appointment. [facility] 02-09-2024 Note Recommended smoking cessation after 5 min discussion and pt declined [facility] 02-09-2024 Note Patient here for 3 m [...] All other systems reviewed and are negative. [facility] 02-09-2024 Note [facility] CARDIOLOGY PROGR ESS NOTE [...] noted today Renal function stable RTC 6months [facility] 12-27-2023 Note Date of Procedure 12/27/2023. Interpretation Right Eye Normal without fluid. Findings include Negative for Intraretinal fluid, Cystoid macular edema. Left Eye Abnormal foveal contour. Findings include Negative for Intraretinal fluid, Cystoid macular edema. Interval Change Right Eye Stable. Left Eye Stable. [facility] 12-27-2023 Note HNO ID: [id number] Author: MARQUIS WEAVER, OD Service: ? 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 come to crab picker flyer on prostate bx To schedule office visit to discuss prostate bx if he wishes Ale Hickman MD [facility] Work Phone: 12-13-2023 Miscellaneous Notes Please call again and update me Please notify patient that his PSA is rising from 9 to 10.6 He needs prostate bx Can be done in office under local anesthesia or in ASC under MAC ( [place] sleep) 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 to crab picker 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 on 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 bx To schedule office visit to discuss prostate bx if he wishes Ale Hickman MD documented in this encounter [facility] 12-08-2023 Miscellaneous Notes Phone visit unsuccessful and had only VOICE MAIL X 2 I DID NOT LEAVE A MESSAGE Please notify patient that his PSA is rising from 9 to 10.6 He needs prostate bx Can be done in office under local anesthesia or in ASC under MAC ( [place] sleep) 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 Service: ? Author Type: ? Type: Progress Notes Filed: 12/08/2023 14:51 Note Text: 72 year old male with nuclear sclerotic senile, ERM, pseudophakia here today for elevated PSA. PSA PSA PSA, PERCENT FREE Latest Ref Rng <2.60 ng/mL % 07/25/2019 5.33 (H) 6 5.34 (H) 11/17/2023 10.58 (H) Attempted to call patient at 2:41. No answer. [facility] 12-08-2023 History of Present illness Narrative 72 year old male with nuclear sclerotic senile, ERM, pseudophakia here today for elevated PSA. PSA PSA PSA, PERCENT FREE Latest Ref Rng <2.60 ng/mL % 07/25/2019 5.33 (H) 6 5.34 (H) 11/17/2023 10.58 (H) Attempted to call patient at 2:41. No answer. documented in this encounter [facility] 10-24-2023 Instructions Raven Babcock - 10/24/2023 3:05 PM EST -PSA in 4 weeks at [facility] lab -Schedule telephone visit in 5 weeks to discuss PSA blood test documented in this encounter [facility] 10-24-2023 History of Present illness Narrative Gianfranco [address] [address] [address] 72 year old male with nuclear sclerotic [...] 2007 Retinal detachment, left eye, repaired in [place], [place] PAST SURGICAL HISTORY OF hernia sx, [...] nontender, w/o nodules. Good anal sphincter tone. [facility] SYMPTOMS SCORE. Date 10/24/2023 1. [...] Ale Hickman M.D. documented in this encounter [facility] 10-24-2023 Note HNO ID: [id number] Author: ?, ?, ? Service: ? Author Type: ? Type: Progress Notes Filed: 10/24/2023 15:09 Note Text: Gianfranco Martin [address] [place] [address] 72 year old male with nuclear sclerotic [...] 2007 Retinal detachment, left eye, repaired in [place], [place] PAST SURGICAL HISTORY OF hernia sx, [...] nontender, w/o nodules. Good anal sphincter tone. [facility] SYMPTOMS SCORE. Date 10/24/2023 1. [...] the services describe (more content not included)... [facility] 10-21-2023 Note PCP increased lasix to 40 mg daily, and I started aldactone at last visit. Renal function remains normal [facility] 10-21-2023 Note Patient is unsure of his medications, why he takes each med and sometimes not sure if he is taking them once or twice a day [facility] 10-21-2023 Note Hypertension is stil l elevated and leg swelling pt states is unchanged Resume norvasc 5 mg daily, continue atenolol, losartan bid, aldactone and lasix [facility] 10-21-2023 Note Patient here for 1 m [...] All other systems reviewed and are negative. [facility] 10-21-2023 Note [facility] CARDIOLOGY PROGR ESS NOTE [...] reason for each medication that he takes. [facility] 09-21-2023 Note Start aldactone and continue lasix 40 mg daily Repeat bmp 1 week [facility] 09-21-2023 Note Hypertension is unco ntrolled, and with leg swelling/edema asked pt to stop norvasc and start aldactone. Repeat labs in 1 week and to notify office for any concerns/ side effects- muscle cramps, tenderness. Pt does not check b/p at home [facility] 09-21-2023 Note Recommended smoking cessation- pt is not agreeable at this time [facility] 09-21-2023 Note Reports WILLAMS, noted [...] week to check renal function and electrolytes. [facility] 09-21-2023 Note [facility] CARDIOLOGY PROGR [...] and he may proceed with physical therapy. [facility] 09-21-2023 Note Patient here for [...] All other systems reviewed and are negative. [facility] 08-26-2023 Note Cardiology Clinic No [...] time -Optimize med (more content not included)... [facility] 08-26-2023 Note New patient here to establish care. Ref from Daina Judge CNP for hypertension. She ordered stress test recently but he was unable to complete it due to inability to lie flat. He smokes 1.5 PPD and drinks about 5 beers daily. Denies chest pain, palpitations, and lightheadedness. Says his LE are always taut and swollen. [facility] 06-27-2023 Note HNO ID: [id number] Author: Kenyon Angel OD Service: ? Author Type: REINFORCING STEEL MACHINE OPERATOR Type: Progress Notes Filed: 06/27/2023 1:37 PM [...] Angel, OD June 27, 2023 1:37 PM [facility] 06-06-2023 Note HNO ID: [id number] Author: Marquis Weaver OD Service: ? Author Type: REINFORCING STEEL MACHINE OPERATOR Type: Progress Notes Filed: 06/06/2023 2:29 PM [...] Weaver, OD June 06, 2023 2:22 PM [facility] 06-06-2023 History of Present illness Narrative [...] 2023 2:22 PM documented in this encounter [facility] 10-15-2022 Hospital Discharge instructions Patient Education 10/15/2022 [...] one of these risk factors: ?Being of -[place] descent. ?Having a family history of prostate [...] you: Are older than age 55. Are -[place]. Have a father, brother, or uncle who [...] 05/19/2018 Document Revised: 07/21/2018 Document Reviewed: 05/19/2018 [employer] Patient Education 2020 [employer]. Follow Up Care 10/05/2022 09:16:20 With:SELENA LEONG, Jf Reis, URL Address: [address] [place] [address]- When: Unknown [facility] 06-28-2022 Note Chief Complaint Referral-Elevated PSA HPI [...] [facility] [address], [place] [address] [phone] Additional Instructions: pt will f/u based on [...] Father. Immunizations Vaccine Date Status Comments SARSCoV2 mRNA(lrxedutxr-jwta-uobpqj) vac 03/12/2022 Recorded 2022-06-28: TPV70 SARS-CoV-2 (COVID-19) mRNA BNT-162b2 vax 11/14/2020 Recorded 2022-06-28: TPV70 SARS-CoV-2 (COVID-19) mRNA BNT-162b2 vax 10/24/2020 Recorded 2022-06-28: TPV70 Lab Results Test Name Test Result Date/Time PSA, External 6.8 ng/mL 05/20/2022 08:26 EDT PSA, External 8.41 ng/mL 05/12/2022 08:25 EDT Diagnostic Results Test (more content not included)... [facility] Comment on above: Result Comment: Elec tronically [...] urethra. Follow these instructions at home: Take evae-egw-hmwarxo and prescription medicines only as told by [...] 08/08/2006 Document Revised: 07/03/2019 Document Reviewed: 09/12/2017 [employer] Patient Education 2020 [employer]. Follow Up Care 05/27/2022 15:25:17 With:SELENA LEONG, Jf Reis, URL Address: [facility] [address], [place] [address]- [phone] When: Unknown [facility] [place] 06-16-2022 History of Present illness Narrative ASSESSMENT/PLAN: [...] Z96.1 -S/P PCIOL Left eye (02/07/17) Aim: [place] by Dr. Ana farnsworth; He states that he is happy using OTC readers and declines appt for refraction with track coach 3. Nuclear senile cataract of right eye - ICD9: 366.16, ICD10: H25.11 He is still happy enough with his vision and opts to follow up with Dr. Perez January 2023 for exam/cataract evaluation 4. History of retinal detachment - left eye - ICD9: V12.49, ICD10: Z86.69 history of retinal detachment repair OS 2007 in [place]. Stable. Call/come in for evaluation immediately if [...] for this note was completed by SENTHIL Balelsteros acting as a scribe for, and in [...] Radha Perez MD documented in this encounter [facility] 03-01-2022 History of Present illness Narrative ASSESSMENT/PLAN: [...] 2022 4:08 PM documented in this encounter [facility] 02-26-2022 Miscellaneous Notes Called to let patient know we were able to get him an appointment in [place] at 4pm, left message. SENTHIL Ballesteros February 26, 2022 3:[address] Perez and she recommends that he be seen today. Please reach out to Patient to see if we can get appointment. SENTHIL Ballesteros February 26, 2022 2:57 PM documented in this encounter [facility] 02-17-2022 History of Present illness Narrative Assessment/ [...] h/o retinal detachment repair OS 2007 in [place]. Stable. Call/come in for evaluation immediately if [...] eye -S/P PCIOL Left eye (02/07/17) Aim: [place] by Dr. Perez Signs and symptoms of posterior capsular opacification were reviewed. Discussed possible eventual need for Yag laser posterior capsulotomy. Patient is still happy enough with vision, so declines Yag procedure for now. stable; he remains happy with his vision OS and with OTC readers If he wishes to get new glasses, previously offered an undilated refraction with our optometrists in [place]; he was told that vision with new glasses would not be perfect due to cataract OD; he also has mild PCO OS and Epiretinal membrane OS. He sees a nurse practitioner in [place] Offered for him to establish with a [facility] sprinkler driver in [place] Return to clinic in 12 months for [...] Perez MD 02/17/22 documented in this encounter [facility] Evaluation + Plan note No data available for this section [facility] Evaluation note Diagnosis Nuclear senile cataract of [...] by other means [facility] Diagnosis 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, left- Primary [...] both upper eyelids [facility] Diagnosis 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, left- Primary [...] stated as uncontrolled [facility]No assessment information availableOhio[facility] Work Phone: Evaluation note* Diagnosis OPENED IN ERROR- Primary To allow closing an encounter opened in error (used in SmartSet) [facility]* Diagnosis Type 2 diabetes [...] and sense organs [facility] Diagnosis Elevated prostate specific antigen (PSA)- Primary BPH without obstruction/lower urinary tract symptoms Hypertrophy of prostate without urinary obstruction and other lower urinary tract symptoms (LUTS) [facility] Diagnosis Elevated prostate specific antigen (PSA)- Primary APPOINTMENT CANCELLED Retinal hemorrhage, left eye- Primary Retinal hemorrhage History of retinal detachment Personal history of other disorders of nervous system and sense organs Epiretinal membrane (ERM) of left eye [facility] Diagnosis Retinal hemorrhage, left eye- Primary Retinal hemorrhage History of retinal detachment Personal history of other disorders of nervous system and sense organs Epiretinal membrane (ERM) of left eye Nuclear senile cataract of right eye Pseudophakia, left eye Lens replaced by other means History of YAG laser capsulotomy of lens, left [facility] Diagnosis Elevated prostate specific antigen (PSA)- Primary Prostate cancer (HCC) Malignant neoplasm of prostate Encounter for observation for other suspected diseases and conditions ruled out documented in this encounter [facility] Discharge instructions No data available for this section [facility] No data available for this section [facility] Valentina Medications Administered Section Active Administered Medications [...] the event of a Fluress shortage, administer [place]-Fluor 1 drop into both eyes as directed [...] the event of a Fluress shortage, administer [place]-Fluor 1 drop into both eyes as directed [...] FoundDocuments on File Type Date Recorded Patient Chip Drier Expl anation Advance Directive(s) 02/07/2017 9:56 AM Advance Directive Response Recorded Date/ Time Advance Directives No June 11:55am Chief Complaint and Reason for Visit Chief Complaint r97.20 n40.1 Summary Purpose Family History No Family History Records FoundNo Family History Records FoundNo Family History Records FoundNo Family History Records FoundNo Family History Records FoundNo Family History Records FoundNo Family History Records Found Reason for Referral Specialty Diagnoses / Procedures Referred By Ever kaiser Referred To Contact [facility] Diagnoses Elevated prostate specific antigen (PSA) Prostate cancer (HCC) Procedures MRI 3D POST PROCESSING 3D RENDERING W/INTERP&POSTPROC DIFF WORK STATION Ale Hickman MD [address] [place] [address] [place] [address] Referral ID Status Reason Start Date Expiration Date Visits Requested Visits Authorized [id number] New Request Auto-Generat ed Referral 4 06/30/2025 1 1 Specialty Diagnoses / Procedures Referred By Ever kaiser Referred To Contact MR IMAGING Diagnoses Encounter for observation for other suspected diseases and conditions ruled out Procedures MRI PROSTATE WO/W IVCON MRI PELVIS W/O & W/CONTRAST MATERIAL Ale Hickman MD [address] [place] [address] [place] [address] Referral ID Status Reason Start Date Expiration Date Visits Requested Visits Authorized [id number] New Request Auto-Generat ed Referral 4 06/30/2025 1 1 Additional Source Comments Source Comments (unrecognize d section and content) In the event this informatio n is protected by the Federal Confidentiality of Alcohol and Drug Abuse Patient Records regulations: The Federal rules restrict any use of the information to criminally investigate or prosecute any alcohol or drug abuse patient.[facility] the event this information is protected by the Federal Confidentiality of Alcohol and Drug Abuse Patient Records regulations: The Federal rules restrict any use of the information to criminally investigate or prosecute any alcohol or drug abuse patient.[facility] the event this information is protected by the Federal Confidentiality of Alcohol and Drug Abuse Patient Records regulations: The Federal rules restrict any use of the information to criminally investigate or prosecute any alcohol or drug abuse patient.[facility] the event this information is protected by the Federal Confidentiality of Alcohol and Drug Abuse Patient Records regulations: The Federal rules restrict any use of the information to criminally investigate or prosecute any alcohol or drug abuse patient.[facility] the event this information is protected by the Federal Confidentiality of Alcohol and Drug Abuse Patient Records regulations: The Federal rules restrict any use of the information to criminally investigate or prosecute any alcohol or drug abuse patient.[facility] the event this information is protected by the Federal Confidentiality of Alcohol and Drug Abuse Patient Records regulations: The Federal rules restrict any use of the information to criminally investigate or prosecute any alcohol or drug abuse patient.[facility] the event this information is protected by the Federal Confidentiality of Alcohol and Drug Abuse Patient Records regulations: The Federal rules restrict any use of the information to criminally investigate or prosecute any alcohol or drug abuse patient.[facility] the event this information is protected by the Federal Confidentiality of Alcohol and Drug Abuse Patient Records regulations: The Federal rules restrict any use of the information to criminally investigate or prosecute any alcohol or drug abuse patient.[facility] the event this information is protected by the Federal Confidentiality of Alcohol and Drug Abuse Patient Records regulations: The Federal rules restrict any use of the information to criminally investigate or prosecute any alcohol or drug abuse patient.[facility] the event this information is protected by the Federal Confidentiality of Alcohol and Drug Abuse Patient Records regulations: The Federal rules restrict any use of the information to criminally investigate or prosecute any alcohol or drug abuse patient.[facility] the event this information is protected by the Federal Confidentiality of Alcohol and Drug Abuse Patient Records regulations: The Federal rules restrict any use of the information to criminally investigate or prosecute any alcohol or drug abuse patient.[facility] the event this information is protected by the Federal Confidentiality of Alcohol and Drug Abuse Patient Records regulations: The Federal rules restrict any use of the information to criminally investigate or prosecute any alcohol or drug abuse patient.[facility] the event this information is protected by the Federal Confidentiality of Alcohol and Drug Abuse Patient Records regulations: The Federal rules restrict any use of the information to criminally investigate or prosecute any alcohol or drug abuse patient.[facility] the event this information is protected by the Federal Confidentiality of Alcohol and Drug Abuse Patient Records regulations: The Federal rules restrict any use of the information to criminally investigate or prosecute any alcohol or drug abuse patient.[facility] the event this information is protected by the Federal Confidentiality of Alcohol and Drug Abuse Patient Records regulations: The Federal rules restrict any use of the information to criminally investigate or prosecute any alcohol or drug abuse patient.[facility] Reason for Visit (unrecogniz ed section and [...] hemorrhage, left eye Reason Comments Results Appointment Reason Comments PSA elevated PSA Care Teams (unrecognized sec tion and content) Unix Consultant Relationship Specialty Start Date End Date Raul Sun MD PCP - General Family Practice 02/11/21 Unix Consultant Relationship Specialty Start Date End Date Raul Sun MD PCP - General Family Practice 02/11/21 Unix Consultant Relationship Specialty Start Date End Date Raul Sun MD PCP - General Family Practice 02/11/21 Unix Consultant Relationship Specialty Start Date End Date Raul Sun MD PCP - General Family Medicine 02/11/21 Team Status: Inactive Member Role Status Dates Jf Sanches MD Attending Provider Active AMMY Darling Primary Care Provider Active Team Status: Active Member Role Status Dates AMMY Darling Primary Care Provider Active Unix Consultant Relationship Specialty Start Date End Date Raul Sun MD PCP - General Family Medicine 02/11/21 Unix Consultant Relationship Specialty Start Date End Date Raul Sun MD PCP - General Family Medicine 02/11/21 Unix Consultant Relationship Specialty Start Date End Date Raul Sun MD PCP - General Family Medicine 02/11/21 Daina Judge, GERONTOLOGY AIDE [address] [facility] [place] [address] Referring Internal Medicine 10/15/23 Unix Consultant Relationship Specialty Start Date End Date Raul Sun MD PCP - General Family Medicine 02/11/21 Daina Judge, GERONTOLOGY AIDE [address] [facility] [place] [address] Referring Internal Medicine 10/15/23 Unix Consultant Relationship Specialty Start Date End Date Raul Sun MD PCP - General Family Medicine 02/11/21 Daina Judge, GERONTOLOGY AIDE [address] [facility] [place] [address] Referring Internal Medicine 10/15/23 Unix Consultant Relationship Specialty Start Date End Date Raul Sun MD PCP - General Family Medicine 02/11/21 Daina Judge, GERONTOLOGY AIDE [address] [facility] [place] [address] Referring Internal Medicine 10/15/23 Unix Consultant Relationship Specialty Start Date End Date Raul Sun MD PCP - General Family Medicine 02/11/21 Daina Judge, GERONTOLOGY AIDE [address] [place] [address] Referring Internal Medicine 10/15/23 Unix Consultant Relationship Specialty Start Date End Date Raul Sun MD PCP - General Family Medicine 02/11/21 Daina Judge, GERONTOLOGY AIDE [address] [place] [address] Referring Internal Medicine 10/15/23 Unix Consultant Relationship Specialty Start Date End Date Raul Sun MD PCP - General Family Medicine 02/11/21 Daina Judge, GERONTOLOGY AIDE [address] [place] [id number] Referring Internal Medicine 10/15/23 Goals (unrecognized section and content) Goals may be documented in a n alternate section (unrecognized sect ion and content) No Status Records FoundNo Status Records FoundNo Status Records FoundNo Status Records FoundNo Status Records FoundNo Status Records FoundNo Status Records Found INFORMATION SOURCE (unrecogn ized section and content) DATE CREATED AUTHOR 07/29/2022 [facility] DATE CREATED AUTHOR AUTHOR'S ORGANIZ ATION 10/28/2022 [facility] DATE CREATED AUTHOR AUTHOR'S ORGANIZ ATION 12/01/2022 [facility] DATE CREATED AUTHOR AUTHOR'S ORGANIZ ATION 01/01/2024 [facility] DATE CREATED AUTHOR AUTHOR'S ORGANIZ ATION 02/11/2024 [facility] DATE CREATED AUTHOR AUTHOR'S ORGANIZ ATION 03/10/2024 [facility] DATE CREATED AUTHOR AUTHOR'S ORGANIZ ATION 06/06/2024 [facility] FOR RECORDS PERTAINING TO PATIENTS WHO [...] BE BASED ON THE PRIMARY CLINICAL RECORDS. [facility] [employer] [facility]. provides no warranty or guarantee of the accuracy or completeness of information in this document.
[2024-07-05 15:27] LABS: Alanine Aminotransferase 26 U/L (16-63); Albumin Globulin Ratio 1.1; Albumin Level 3.7 g/dL (3.4-5.0); Alkaline Phosphatase 91 U/L (46-116); Anion Gap 12.9; Aspartate Amino Transferase 19 U/L (15-37); BUN Creatinine Ratio 7.1; Bilirubin Total 0.6 mg/dL (0.2-1.0); Calcium 9.1 mg/dL (8.5-10.1); Carbon Dioxide 27.3 mmol/L (21.0-32.0); Chloride 100 mmol/L (98-107); Estimated GFR (African America >60 (>=60 mL/min/1.73m^2); Estimated GFR (Non-African Ame >60 (>=60 mL/min/1.73m^2); Globulin 3.5 g/dL; Glucose 127 mg/dL (74-106); Potassium 5.2 mmol/L (3.5-5.1); Sodium 135 mmol/L (136-145); Total Protein 7.2 g/dL (6.4-8.2)
== END 2024-07-05 14:54 | disposition home or self-care (01) ==
PROVIDERS: PCP Nurse Practitioner Family; Visit Provider Nurse Practitioner Family
DX: E87.1 Hypo-osmolality and hyponatremia (principal)
CPT/HCPCS: 36415; 80053

== ENCOUNTER 2024-08-10 14:26 | Outpatient (OUT) | payer MEDICARE, SELFPAY ==
--- OUTSIDE RECORDS SUMMARY | 2024-08-10 14:31 | XMS_ITS | CCD ---
Author Organization [facility] Care Team Providers Care Ship Rigger Name Role Phone Raul Sun MD Primary Care Provider [phone] DAINA JUDGE Primary Care Physician MD Jf [...] DAINA Admitting Unavailable DAINA JUDGE Attending Unavailable DAINA [...] MACIAS Attending Unavailable HILDA HA Attending Unavailable RAUL SUN Primary Care Unavailable ALE HICKMAN Attending Unavailable RAUL SUN Primary Care Unavailable KENYON ANGEL Attending Unavailable RAUL SUN Primary Care Unavailable MARQUIS WEAVER Attending Unavaila ALE Antonio Attending Unavailable RAUL SUN Primary Care Unavailable MARQUIS WEAVER Attending Unavaila RAUL Reeder Primary Care Unavailable ALE HICKMAN Attending Unavailable RAUL SUN Primary Care Unavailable RAUL SUN Primary Care Unavailable KAIA EGAN Attending Unavailable JUAN MANUEL FORD Attending Unavailable ROGERIO LANE Attending Unavailable JUAN MANUEL FORD Attending Unavailable Unavailable Primary Care Provider Unavailabl e Allergies Allergy Classification Reported Allergen(s) Allergy Type Date of Onset Reaction(s) Facility (17 sources) Penicillins; Translations: [PENICILLINS] Drug Allergy 7 Rash [facility] (5 sources) Penicillin; Translations: [penicillin] Drug Allergy 2 Unknown skin reaction [facility] (1 source) Penicillins Drug allergy (disorder) 2 [facility] (3 sources) amLODIPine; Translations: [AMLODIPINE] Drug Allergy 4 Swelling [facility] (2 sources) Penicillin G Drug Allergy 3 Unknown [facility] (2 sources) Penicillins Drug Allergy 7 Other, Rash, Unknown [facility] Medications Current Medications Medication Drug Class(es) Dates Sig (Normalized) Sig (Original) [id number] 200 actuat albuterol 0.09 mg/actuat metered dose inhaler (12 sources) beta2-Adrenergic Agonist Start: 04-17-2023 albuterol HFA (PROVENTIL HFA, VENTOLIN HFA) 90 mcg/actuation inhaler 04/17/2023 Active Ventolin HFA 108 (90 Base) MCG/ACT inhaler every 4 (four) hours. Active amLODIPine 5 mg oral tablet (20 sources) Dihydropyridine Calcium Channel Rosie Start: 01-14-2021 take 1 tablet by mouth once daily amLODIPine (NORVASC) 5 mg tablet Take 5 mg by mouth once daily. 01/14/2021 Active Comment on above: Take 5 mg by mouth o nce daily. atenolol 50 mg oral tablet (20 sources) beta-Adrenergic Rosie Start: 11-02-2018 atenolol (TENORMIN) 50 mg tablet 11/02/2018 Active atorvastatin 10 mg oral tablet (20 sources) HMG-CoA Reductase Inhibitor Start: 02-01-2022 atorvastatin (LIPITOR) 10 mg tablet 02/01/2022 Active busPIRone hydrochloride 10 mg oral tablet (20 sources) Start: 11-05-2022 take 1 tablet by mouth in the morning busPIRone (Buspar) 10 MG tablet Take 10 mg by mouth in the morning and 10 mg before bedtime. 11/05/2022 Active Start: 11-02-2018 busPIRone (BUS PAR) 5 mg tablet 11/02/2018 Active cholecalciferol 0.05 mg oral capsule (15 sources) Vitamin D Cholecalciferol, Vitamin D3, 50 mcg (2,000 unit) cap Take by mouth. Active Cholecalciferol, Vitamin D3, (VITAMIN D-3) 2,000 unit cap Take by mouth. 0 Active Comment on above: Take by mouth. clobetasol propionate 0.5 mg/ml topical cream (2 sources) Corticosteroid Start: 01-26-20 22 clobetasol (Temovate) 0.05 % cream apply to bilateral lower legs topically Twice a day as needed for 30 day(s) 01/25/2022 Active diclofenac sodium 75 mg delayed release oral tablet (9 sources) Nonsteroidal Anti-inflammatory Drug Start: 10-09-19 24 take 1 tablet by mouth every twelve hours diclofenac, EC, (VOLTAREN) 75 mg EC tablet Take 1 tablet by mouth every 12 hours. 10/09/2023 Active Comment on above: Take 1 tablet by [facility] every 12 hours. doxycycline monohydrate 50 mg oral capsule (17 sources) Tetracycline-class Drug Start: 01-26-20 24 take 1 capsule by mouth once daily doxycycline (Monodox) 50 MG capsule Indications: Other rosacea Take 1 capsule, by mouth, once daily, 30 days 30 capsule 11 01/26/2024 Active Start: 01-25-2022 take 1 capsule by [facility] once daily doxycycline (VIBRAMYCIN) 50 mg capsule [...] once daily. furosemide 20 mg oral tablet (20 sources) Loop Diuretic Start: 11-03-19 19 furosemide (LASIX) 20 mg tablet 11/02/2018 Active hydroCHLOROthiazide 12.5 mg / losartan potassium 50 mg oral tablet (20 sources) Thiazide Diuretic, Angiotensin 2 Receptor Rosie Start: 06-28-20 hydrochlorothiazi de-losartan 12.5 mg-50 mg Tab Refill(s) 0 Start [...] 05/31/2024 Active loratadine 10 mg oral tablet (20 sources) Start: 06-28-2022 take 3 tablets by mouth once daily loratadine 10 mg Tab Oral route, 3 Refill(s), 1 tablet by mouth once a day, Refills(s) 0 Start Date: 06/28/22 Status: Ordered loratadine (Clar itin) 10 MG tablet 1 (one) time each day at the same time. Active Comment on above: Take 10 mg by mouth once daily. metFORMIN hydrochloride 500 mg oral tablet (20 sources) Biguanide Start: 11-02-2018 metFORMIN (GLUCOPHAGE) 500 mg tablet 11/02/2018 Active Minocycline (15 sources) Tetracycline-class Drug MINOCYCLINE HCL (MINOCYCLINE ORAL) Take by mouth. Active MINOCYCLINE HCL (MINOCYCLINE ORAL) Take by mouth. 0 Active Comment on above: Take by mouth. naltrexone hydrochloride 50 mg oral tablet (17 sources) Opioid Antagonist Start: 11-03-19 19 naltrexone [...] morning. traZODone hydrochloride 150 mg oral tablet (20 sources) Serotonin Reuptake Inhibitor Start: 06-28-20 traZODONE [...] Translations: [Age-related nuclear cataract, right eye] Onset: 7 Chronic Diabetes mellitus with complications (1 source) Polyneuropathy due to diabetes mellitus; Translations: [Diabetes mellitus due to underlying condition with diabetic polyneuropathy] 07-05-2024 Chronic Diabetes mellitus without complication (20 sources) Diabetes mellitus type 2 without retinopathy; Translations: [Type 2 diabetes mellitus without complications] Onset: 1 Chronic Disorders of lipid metabolism (1 source) Hyperlipidemia, unspecified; Translations: [HYPERLIPIDEMIA UNSPECIFIED] Onset: 2 Chronic Essential hypertension (5 sources) Hypertensive disorder; Translations: [Essential (primary) hypertension] Onset: 4 08-08-2019 Chronic Hyperplasia of prostate (6 sources) Benign prostatic hypertrophy with outflow obstruction; Translations: [Benign prostatic hyperplasia with lower urinary tract symptoms] Onset: 2 Chronic Mood disorders (3 sources) Depressive disorder 08-08-2019 Chronic Mycoses (1 source) Pain in toe; Translations: [Tinea unguium] 07-05-2024 Episodic Other connective tissue disease (1 source) Capsulitis of metatarsophalangeal joint of right foot; Translations: [Other enthesopathy of right foot and ankle] 07-05-2024 Episodic Other diseases of veins and lymphatics (1 source) Vascular insufficiency; Translations: [Venous insufficiency (chronic) (peripheral)] 07-05-2024 Episodic Other eye disorders (15 sources) Chorioretinal scar of left eye; Translations: [Unspecified chorioretinal scars, left eye] Onset: 7 11-10-2016 Chronic Other eye disorders (2 sources) History of iifljyf-hwaycumr-qwnbgc (YAG) laser capsulotomy of lens; Translations: [Cataract extraction status, left eye] 06-06-2023 Episodic Other inflammatory condition of skin (2 sources) Rosacea; Translations: [Other rosacea] Onset: 3 01-25-2023 Chronic Residual codes; unclassified (2 sources) Localized edema; Translations: [Localized edema] Onset: 4 Episodic Retinal detachments; defects; vascular occlusion; and retinopathy (20 sources) Epiretinal membrane of left eye; Translations: [Puckering of macula, left eye] Onset: 7 Chronic Substance-related disorders (2 sources) Nicotine dependence, unspecified, uncomplicated; Translations: [Nicotine dependence, unspecified, uncomplicated] Onset: 4 Chronic Unclassified (1 source) OPENED IN ERROR 03-03-2023 Unclassified (1 source) APPOINTMENT CANCELLED 12-08-2023 Unclassified (1 source) Patient's noncompliance with other medical treatment and regimen due to unspecified reason; Translations: [Patient's noncompliance with other medical treatment and regimen due to unspecified reason] Onset: 4 Past or Other Problems Problem Classification Problem [...] Results Test Name Value Interpretation Reference Range [facility] 05-31-2024 [facility] Telephone (UROSHEKHARN) -- GIANFRANCO MARTIN ([id number]) 1950 M Date Time Provider Department 05/31/24 ALE HICKMAN During your visit today, we recorded the following information about you: Negrita Nicole 05/31/2024 3:56 PM Signed Jovita Gloverl Schedulers Pool Please schedule patient for an MRI Prostate and then for an OV to follow per request! LVM for pt to call back and schedule MRI and follow up. Mychart sent. Paty Lacey 06/01/2024 11:[address] Hickman- Spoke to patient Told Patient I was calling to get him scheduled for PSA and MRI with a follow up to see you. 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 Pt explained his Urology provider, Dr Barroso at [facility], scheduled him an MRI and he was [...] by: Marquis Weaver, OD - Fully Assessed Prescriptions as of [...] Encounter Status:Closed by PATY LACEY on 06/01/24 [facility] 05-25-2024 [facility] Telephone (UROSHEKHARN) -- GIANFRANCO MARTIN ([id number]) 1950 M Date Time Provider Department 05/25/24 ALE HICKMAN During your visit today, we recorded the following information about you: Ale Hickman MD 05/25/2024 7:18 AM Signed Please notify patient his PSA is very high and he is at high risk of having prostate cancer. he needs to schedule his prostate biopsy unless he had it done else where PSA from [facility] on 05-18-24 = 16.17 (normal values 0-4) Can be done in office under local or in ASC under [facility] MD Sarthak Pham Nicole, LPN 05/25/2024 9:05 AM Signed Call placed to patient in regards to message below. LVMM for patient to return call back to [phone], in regards to his recent lab results and orders on how Dr. Hickman would like to proceed. Niya De León LPN 05/30/2024 9:07 AM Signed Call placed to patient in regards to message below. LVMM for patient to return call to [phone] in regards to lab results and how [...] Status:Closed by ALE HICKMAN on 05/25/24 [facility] Office Visiton 02-09-2024 Follow-up visit [id number] Pan Martin 1950 M Date Provider Department Center 02/09/2024 HILDA OLIVOalyssa Lepe Family History Problem Relation Age of Onset Coronary artery disease Father Stroke Father Family Status - Relation Status Age at Father Level of Service:83100 ME OFFICE/OUTPATIENT ESTABLISHED LOW MDM 20 MIN [facility] OCT MACULA CIRRUS OU (BOTH E YES)on 12-27-2023 [facility] Radiology Study observation (narrative) [facility] CNPNon 12-08-2023 CNPN Telephone (UROLLN) -- GIANFRANCO MARTIN ([id number]) 1950 M Date Time Provider Department 12/08/23 [...] anesthesia or in ASC under MAC ( [place] [facility]) He can come to greens picker flyer on prostate bx To update [...] Encounter Status:Closed by ALE HICKMAN on 12/08/23 [facility] Telephone (UROLLN) -- GIANFRANCO MARTIN ([id number]) 1950 M Date Time Provider Department 12/08/23 ALE HICKMAN During your visit today, we recorded the following information about you: Ale Hickman MD 12/13/2023 5:41 PM Signed Please call again and update me Please notify patient that his PSA is rising from 9 to 10.6 He needs prostate bx Can be done in office under local anesthesia or in ASC under MAC ( [place] [facility]) He can come to greens picker flyer on prostate bx To schedule [...] Status:Closed by ALE HICKMAN on 12/13/23 [facility] PSA SerPl-mCncon 11-17-2023 Prostate specific Ag [Mass/Vol] 10.58 ng/mL High <2.60 [facility] Comment on above: Order Comment: Speci men Type: BLOOD SPECIMEN Ordering Facility: [facility] Address: [address] [place] [address] [place] [address] Result Comment: Tomas luong PSA test methodology [...] 2003,349:335-42. Performed By: #### 2 [id number] #### [facility] CLIA [id number] [address] [place] [address] [place] CNOVon 10-24-2023 CNOV Office Visit (UROLLN ) -- GIANFRANCO MARTIN ([id number]) 1950 M Date Time Provider Department 10/24/23 2:40 PM ALE HICKMAN During your visit today, we recorded the following information about you: Pulse Blood pressure Weight 79/minute 157/66 97.5 kg Raven Babcock 10/24/2023 3:09 [place] [address] 72 year old male with nuclear sclerotic [...] 2007 Retinal detachment, left eye, repaired in [place], [place] PAST SURGICAL HISTORY OF hernia sx, POST-CATARACT LASER SURGERY Left 06/16/2022 YAG Capsulotomy OS by Dr. Perez X[facility]SL [facility] RMVL INSJ IO LENS PROSTH W/O ECP [...] nontender, w/o nodules. Good anal sphincter tone. [facility] SYMPTOMS SCORE. Date 10/24/2023 1. INCOMPLETE EMPTYING 1 2. FREQUENCY 1 3. INTERMITTENCY 1 4. URGENCY 1 5. WEAK STREAM 2 6. STRAINING 1 7. NOCTURIA 1 TOTAL SCORE 8 IMPRESSION: (Diagnostic Possibilities): Elevated PSA (9 outside [facility] on 3/3/24) BPH wo obstruction, AUA 1-2 30 gm [...] Moderate By (more content not included)... [facility] 37on 10-21-2023 37 Resume taking norvasc/Amlodipine 5 mg daily for blood pressure [facility] Office Visiton 10-21-2023 Follow-up visit [id number] Pna Martin 1950 M Date Provider Department Center 10/21/2023 HILDA OLIVO Family History Problem Relation Age of Onset Coronary artery disease Father Stroke Father Family Status - Relation Status Age at Father Level of Service:41778 ME OFFICE/OUTPATIENT ESTABLISHED MOD MDM 30 MIN [facility] 36on 10-06-2023 36 JEANIE Bean MA Labs look good- no concerns= kidney function normal and electrolytes normal Regarding labs done on 10/04/2023 Patient made aware. [facility] 37on 09-21-2023 37 Stop amlodipine- and start spironlactone- 1 tab daily. Have blood work drawn about 1 week after starting this new med to check kidney function and electrolytes. Call office for any concerns [facility] Office Visiton 09-21-2023 Follow-up visit [id number] Pan Martin 1950 M Date Provider Department Center 09/21/2023 HILDA OLIVO Family History Problem Relation Age of Onset Coronary artery disease Father Stroke Father Family Status - Relation Status Age at Father Level of Service:31153 ME OFFICE/OUTPATIENT ESTABLISHED MOD MDM 30 MIN [facility] Office Visiton 08-26-2023 Follow-up visit [id number] Pan Martin 1950 M Date Provider Department Center 08/26/2023 [id number] MACIAS JARAD Lepe Family History Problem Relation Age of Onset Coronary artery disease Father Stroke Father Family Status - Relation Status Age at Father Level of Service:10261 ME OFFICE/OUTPATIENT [facility] 30 MINUTES [facility] Patient Letter FTon 2022 Patient Letter [facility] (Inserted Image. Prema ble to display) November 30, 2022 [place] [address] GIANFRANCO MARTIN 1950 Dear Gianfranco Martin, Executive [...] Jf Sanches M.D., F.A.C.S. [facility] [address] [place] [id number] , OPTION #3 SENT REGULAR/CERTIFIED MAIL [facility] Coding Summary.on 10-27-2022 Coding Summary. CD:[id number] Gh0bWw +PGhlYWQ+VQ7YFKHrR98hoFVvk C7dL0ECTJxNBatfGQZFEMmJEhZ bjrEzJL7ziEHvELRx IC8+XG1rUYQcUbzoqSTrp0I2fR V1G86wze1kYRvbyDY4YKZgXbPf npxqq9gsvZk9BTwfRtaiCcQe SWRytC47GGZ4zF01Df68lQWokJ Jbk9ikyNg4FjFbPVDsEPB4dVjv SQbgf4UaGNJbC70ajGDxb9S4 BTOloQtcnUKiAaDfdOE6pK2uAX mfuhzoi4twdklcApq9qo95eTQo g9S0zHB8K2NgqcJ9OKVsvEVb KbmgoTGQeE4avokjx2vzpsbxGm MmZCDjQAc0WSf0CCJvcRxkDcOb XO72BLL6PPMllaYoO6VcAWMx eAzqRrN4y8S9Pj0JJ7UKTnmaE9 VNTUFSWTwvdGQ+CB38ch16V5To CndfEag4VWShARK3fWP3iG7b FSWnTAuce2G6nFE9N5LatpMqha 9ox1ilKTWpAWpiE68zlPNlu1P7 XHIilAV2AZQalPjkQlPduO57 Oyc+YNZfyRrjn5UwQrxzo4img5 gqbYt1LucqGODysiChbKqoEYF7 s0FeQg3hXAUnwWT9pSJ6sI8h DlDnUmA1XZfqB766WoVagBYrAx vaI96oV8NjyQE+RFYlLid9GKSz wBlsGP1dP9SjRXJnhwzibJSq uDzbBQ9gUDRwwtevJOZpwY1lYV HjK2o5JyUfRoQ2ZEuiH2RbOEYj yfnuJk24zS4fIpAaVtD9MMsj L8EyvgI2DJHsgBWfVRttRGY1K6 2hm3V8JHNqFICrKEQ9nCB8kE1b bGlnbjogbGVmdDsgdmVydGlj EBfoZCllK515YTDyzEnhRtExAT luZyBEYXRlOiAgMDMvMDgvMjAy MzwvdGQ+XCGrVLX5dWfmYTJn lHNnXItqAh8nrFidbYmkCM3tNW SwbqaiALBwgF2fUSPvyHFmaEfv XX1uKJZgyrijj648OgAiERG6 HHTcpAYqE0EulF5kLhKfZBIaII QsE1IrzVHmPIqlW351NPdcWdO8 SUOtodVeY8XtOMZdcDwrLxE3 d1V5Wz2Tn8AeuwdyB6YdeMVyKn ChJhsqUBa2A5FvXvokyFG+PC90 CRFqAB73IIa9BPH0hWsxTJfj RUPnV9YwuX6vUgVzOVRpIJIeXw c+PHRhYmxlIHdpZHRoPScxMDAl XeItiFybPP9oUl3tGBItNKYb iEsklWQbZiAzg4lyQWUiUOzyPM 2bjSgdN8IhtEE9NQAgf6w1Li79 P80bI8IviVK+QVFtmND0bNY4 aW0eArQoWhR9QScmD706UoFfnK QbRofij5mwp8qivXi9WtV3JPIx ooLwoRdeYQP9a3DiDn12P91b IHdpZHRoPSIxNSUiIHZhbGlnbj 9bqS9zXl1+DYPspHR8qHK5tA5n NyAkCuQ1IStwQ561FkYusPPg Tetok7kvh8kpyBb2IiZgDSRdwu JqeAecDPK3a9AjJw99X7DxfMuo s5RnPkg5sa12nIUyh8J7hEN5 Q9FsNNLvbrltrKJzhDxaGA1fIX AdlkihNAAfeQ4yNRFkA9x2AzOg AyO8KFbvF7KeprK9YYMsmQZy SKRidJNTuN9szzpiz7pqcyttYw LfHFOpDSi2HZe4BSAkwEolMkOi KIB6VpA2JVT2zODhmQ0glZpg kjchxQ1eLgy+TQQ6sRRnuKAFRM 1lOjwvdGQ+JQSaAXU3bRngUEmp NYBsqS5lWXFnG9r5KkVgJcJ6 RAtnZ8MmjzZ5OOQzbHNfSLQhcM CLmW5mszltt0surqrxIzRmMZUl NXd7OLm0RSZdsRsqYrGnBRZ9 GcP2AHM2zGSdpC1zoIrpajnraD 9wOyc+PekxrHxcRFB6XYn1K6Wd Ktq4IAKyrKeuPV5dnOOdJOac Nj3vfMgfdUvxLL3bIFQxgsgoo9 56MiKmy7fiNPCwhLZaPAvsWTG8 H08kg1N5OSFuQUNfVCV0sXF4 pQ1qgTpoqoubdQSedFmexnGcwB jmTEpwUGmwM298ZLYdjGdwQvLr YXh7T8OhLbn1YFObbAdyBC7j gKDnIVytEd5odYjdpZboHA3tVR Kqmebmz192WhJzx4ydEKUcxPSs KDezVUH5N32vd0O7BOZsQKEt IIL6hMF5mV6prFufcwlplNZzwJ ymqiKnqVzkDIqhGLadX458MBQo fGecFiSorSb1N9PxIyi7LXJd oFxpTO8jfQTpUZmqZa1nrMnzrR fyRN7hOEEftfami659LgKnh3gr JHKghUSiBPwnJOU3P62bs5T9 SGDuZVCjCIP9mZY2cO9dsPhshl ogbGVmdDsgdmVydGljYWwtYWxp T855BLQatGqmWaNkfXkeksGa LJtoNWm7F8XoFvfiuNU+PC90YW LrOY71zGQyzNGwz5gfhBt1KeRo MUIdFFG3aEquZBaqb3GkCZAq X66wvRKaw6S2YSNozJzlmJYcIh VjbTO3gA1nGDaaxossb7jwbnnx Amgry3xlob53gO27Z14bPGnn MRHyIMTyOQSkBSMmbOknmd0grO 9wIi8+JEUrkEJ3tYN9xG6yODSk AtP4FPsnI448NfGrdDSxBlyn w4xcj8euwTe4UuZ3SEVkpoEmqM jmGWR8k5BmUv90X22cSCbcOCVx RIYoWGNsCKPbxRxnbj4bpC1c Ii8+QLGvqCB4mGG6pS3aUuBpZx Y6QRizR834XyKxzJKvAzmlU06y Z7BizSK+FYHeRdd0ERMsyDty JZ0biOSvUKwrKv4pNGQ4JoVvMh GwGOvoC0ErKDEpincivaimlBI2 JICaUSSotD96Nv3llJhnTQIt nNBOmP7ubjmur3vzlxvfGbDyCN XqFCu8UGy2HQNceAudXlQzSQS6 OfU0AYX6yJXguN8xkSdbfpjt nZ1sT4OnRNXrazhcXm05yZ5qPz LyUyI6DBxlUoq+UFVMTEFOTywg LntHC8xJDcpnqZF+PHRkIHN0 yZpiZUnyAHShyF6pTYLsL0g0Xu OiLhZ3ZWcwU7FfOWOyzzyrCt94 gU2vRhFiGtE3PWqlO1TvhtY7 DKTekZHuPSdyNKB9B69zj7D9CH BzAICbTOC8eOR7sS7nfExtkpzm bGVmdDsgdmVydGljYWwtYWxp A435KHOteMpaBpX6GmG4FmJ9XI F3Z9IsUen4ZTJvjDweQB3srTEl URdhYr0lqWigwVozYY8fKBMn vhlgBEEceH8bFBMfmJGonZirNT 2hBAWfwmnjh970BxWwLEM5YZPf zWNfC4FjbD5dDiIiCQTuTYAe Z8HwnGEbTHrnC655HCgkXnJ0ND EwlwQsV5CaLJJguCdoKyE8a3H4 Tq05JcSNEVNqrcmizAO+PHRk DCM8qAuiDXfwUDNikK3fTKHwM4 n7LuPsPqC2YTcbY8ZwQQAagzjy Ft46mR2sOtZwWlW9FGqnX3Uj gcD5UDPijKGpIFnpFFP6T13ok7 A9XJBjNNLlWBA9qDC3rE1syNwg bjogbGVmdDsgdmVydGljYWwt QFklJ284PBIguBttUx3ttZG0Z9 YqWah5PAJqpLlbNT7knUCnCXnd Wx5cmZrlkZkiJY5yBBNecdkn KBXfwC5yWXXgeCTpzAfpBS2rZW Klckoxt059YsEiBIY1WFWxmRCq H3HzcI5sIeExQPWsTRYbD6Uu wKBpSBikB434MVphCoA3YWEndm GrY8LpAVTwgDuaPhT5u2E7Vn3R TYReIKQzxRUcViP5C8YnZnnd dHI+QB98BWEsJP30oZRibBMdh5 zloGt8EmMeBGMhEJZ4lLesFYsq l4FtFTOkQ85iqTFxf1W7ZKMg kLkknLIxDbElbQG1gW1uHEylpw nhu9qsmwaeVokoa4owkk28rW82 R11xUVtpQDXrYTQfUEEvHGBq eMmusn8jdZ4xRk5+KUPrgOE2gT N5yZ5pRdEiEwN0JWslP018TmSa uYThLvlie0chj8rqeZj9GsJp DCNgnjEnqZjmGEC8y9FuCy06L4 9sIHdpZHRoPSIyMCUiIHZhbGln xq6deB2lKh9+TJ2sy7dmyo62 uS57gLY+XFSbPCX5vXslLAaiYZ BcaW0fOAoxVdN3HEEiUrNfxL18 sWWsZPyxFg7gjVdceAimIK4a TGZnktzpw010CiFjt1btBUHyvS AdABfyRRB0H36tj2G3FBQaTIFm GUE7sVK1cQ9kySsoeyrtkDTr vYxuxtDxnSvwOQrfEZkkC203UQ PtzEzuIbUhvGBjE6ruuoLYRQ8d OjwvdGQ+MGHxBYD5aIwrGApv HNWzxS6lQTJbS1f8EvHuKeR4NF ppQ1HghtP1LFHbfLWgAGGgkMES fK1cxcnwj0bcrduwFwSwCMHz POg9KNn6SOXabTpyScItKRM2Xw K8IOD6kIQdzK0icWcxeemwlU7y Oyc+RklOOjwvdGQ+PHRkIHN0 qKghFJfwGYKzzH5zAKZaU1j2Yy TyFnY5QKuyW0ErdcZ3PUKzeSZq BDGqjCABwG9cvroxh6xipeqq JkUcVZObABy3QUn9BXVtaUmeJo MzJDS2MgH1YZV0oYBvwH0eyNnn nmraoG5iZhr+TVJOOjwvdGQ+ PVXtDPR2yWraLXthSBDaiS0eYF WqX5d8RtIcMuK5BSgpB6FibfA1 TUCflDQoKYUgdVBIbV8wqlbu i6elbfiaTuWvBHGgXLd2TXg0YA PywAvoSjTrZRW7QaR6KDN3gFHc dG5xsExkstutrZ9bMay+UGF5 FXB4MD65FA10Y8IbGpbmpPNsyK U+PHRhYmxlIHdpZHRoPScxMDAl VtZchPudHZ7hLi7tHSGqTSDn bGxh (more content not included)... Normal [facility] Lab Reportson 10-27-2022 Lab Reports [id number] Normal [facility] Ambulatory Visit Summaryon 0 10-15-2022 Ambulatory Visit Summary GIANFRANCO MARTIN :1950 Visit Date:10/15/2022 Ambulatory Visit Instructions Your Diagnosis Elevated PSA Benign prostatic hyperplasia (BPH) with post-void dribbling Tests Performed Urnls Dip Stick Auto w/o Microscopy POC 23296 Your Care Team Attending Physician - Jf [...] SELENA LEONG, Jf Reis, STEFANI When: Where: [address] [place] [address]- Medications What When Instructions Unchanged amlodipine (amLODIPine [...] Urnls Dip Stick Auto w/o Microscopy POC 87068 (10/15/2022) Bilirubin Urine Dipstick - Negative Blood Urine Dipstick - Negative Glucose Urine Dipstick - Negative Ketones Urine Dipstick - Negative Leukocytes Urine Dipstick - Negative Nitrite Urine Dipstick - Negative Protein Urine Dipstick - Negative Specific [place] Urine Dipstick - 1.010 Urine Appearance Urine [...] provider about (more content not included)... Normal [facility] Patient Educationon 10-15-19 Patient Education Oncology [...] R (more content not included)... Normal [facility] Urology Office/Clinic Noteon 10-15-2022 Urology Office/Clinic [...] Contact Information SELENA LEONG, Jf Reis, URL [facility] [place] [address]- Additional Instructions: PSA today - await results [...] Father. Immunizations Vaccine Date Status Comments SARSCoV2 mRNA(cavitxcth-[id number]-gwkwjn ) vac 03/12/2022 Recorded 2022-06-28: [id number] SARS-CoV-2 [...] Dipstick: Negativ (more content not included)... Normal [facility] Comment on above: Result Comment: Elec tronically Signed By: Jf SANCHES MD\.br\Date and Time Signed: 10/15/22 11:23 EST\.br\Electronically Co-Signed By: Dori Wynne\.br\Date and Time Co-Signed: 10/15/22 11:19 EST\.br\Electronically Co-Signed By: Dori Wynne\.br\Date and Time Co-Signed: 10/15/22 11:21 EST Creatinine (Bld) [Mass/Vol]O rdered By: Jf Sanches on 07-14-2022 Creatinine [Mass/Vol] 0.8 mg/dL 0.6-1.3 [facility] Comment on above: ER/ESD physician is notified/shown all ISTAT results.Critical values may be confirmed by laboratory testing ifdeemed necessary by ER attending doctor. ISTAT XRay CREon 07-14-2022 Creatinine [Mass/Vol] 0.8 mg/dL Normal 0.6-1.3 [facility] Comment on above: Result Comment: ER/E SD physician is notified/shown all ISTAT results. Critical values may be confirmed by laboratory testing if deemed necessary by ER attending doctor. Performed By: #### I SCRE #### [facility] [address] [place] [address] Point of Care testing , ISTAT GFR ( > 60 Normal [facility] Comment on above: Result Comment: GFR estimated reference range: According to KDOQI guidelines, <60 ml/min/1.73m2 is sufficient to diagnose a patient with chronic kidney disease. PERFORMED BY: [place] [address] PATHOLOGIST NURSE ORTHO MADELYN LAIRD M.D. Performed By: #### I SCRE #### [facility] [address] [place] [address] Point of Care testing , ISTAT GFR (Non- Am > 60 Normal [facility] Comment on above: Performed By: #### I SCRE #### [facility] [address] [place] [address] Point of Care testing , No Panel InformationOrdered By: Jf Sanches on 07-14-2022 POC Estimated GFR > 60 [facility] Comment on above: GFR estimated refere nce range: According to KDOQI guidelines, <60 ml/min/1.73m2 is sufficient to diagnose a patient with chronic kidney disease. POC Estimated GFR Non- Amer > 60 [facility] Pre-Certification Formon Pre-Certification Form [id number]:127 Normal [facility] Lab Reportson 07-05-2022 Lab Reports [id number]:127 Normal [facility] Physician Referralon 022 Physician Referral [id number]:127 Normal [facility] Ambulatory Visit Summaryon 1 08-28-2021 Ambulatory [...] Seo When: Where: [facility] [address] [place] [address]- [phone] Medications What When Instructions Unchanged amlodipine (amLODIPine [...] prostate gland (more content not included)... Normal [facility] Historical Records Officeon 06-28-2022 Historical Records Office [id number]:127 Normal [facility] Patient Educationon 06-28-20 Patient Education Urology [...] Follow these instructions at home: ? Take [id number] and prescription medicines only as told by [...] You d (more content not included)... Normal [facility] PSA, FREE AND TOTAL RATIOon 05-21-2022 % Free PSA 7.1 % Normal [facility] Comment on above: Result Comment: [...] population of men. Performed By: #### P RACHAEL #### [facility] [address] [place] [address] Dr. Zaira Benoit Prostate specific Ag [Mass/Vol] 6.8 ng/mL Critically high 0.0-4.0 [facility] Comment on above: Result Comment: Bryant SEXTON methodology. . According to the [facility] [...] of malignant disease. Performed By: #### P RACHAEL #### [facility] [address] [place] [address] Dr. Zaira Benoit PSA, Free 0.48 ng/mL Normal N/A [facility] Comment on above: Result Comment: Bryant SEXTON methodology. Performed By: #### P SAFREE #### [facility] [address] [place] [address] Dr. Zaira Benoit INSULINon 05-13-2022 Insulin 7.8 uIU/mL Normal 2.6-24.9 [facility] Comment on above: Performed By: #### I NSULIN #### [facility] [address] [place] [address] Dr. Zaira Benoit CBC AUTO DIFFon 05-12-2022 BASO # 0.1 103/ul Normal 0.0-0.1 [facility] Comment on above: Performed By: #### C BC #### [facility] [address] [place] [address] Dr. Zaira Benoit Basophils/100 WBC (Bld) 0.9 % Normal 0.2-2.0 [facility] Comment on above: Performed By: #### C BC #### [facility] [address] [place] [address] Dr. Zaira Benoit EO # 0.2 103/ul Normal 0.0-0.7 [facility] Comment on above: Performed By: #### C BC #### [facility] [address] [place] [address] Dr. Zaira Benoit Eosinophils/100 WBC (Bld) 2.1 % Normal 0.9-7.0 [facility] Comment on above: Performed By: #### C BC #### [facility] [address] [place] [address] Dr. Zaira Benoit Erythrocyte distribution width (RBC) [Ratio] 13.2 % Normal 11.0-15.0 [facility] Comment on above: Performed By: #### C BC #### [facility] [address] [place] [address] Dr. Zaira Benoit Hematocrit (Bld) [Volume fraction] 46.6 % Normal 42.0-54.0 [facility] Comment on above: Performed By: #### C BC #### [facility] [address] [address] [address] Zaira Benoit Hemoglobin (Bld) [Mass/Vol] 15.5 g/dL Normal 14.0-18.0 [facility] Comment on above: Performed By: #### C BC #### [facility] [address] [place] [address] Dr. Zaira Benoit IG # 0.02 10e3/ul Normal 0.00-0.03 [facility] Comment on above: Performed By: #### C BC #### [facility] [address] [place] [address] Dr. Zaira Benoit IG % 0.3 % Normal 0.0-0.5 [facility] Comment on above: Performed By: #### C BC #### [facility] [address] [place] [address] Dr. Zaira Benoit LYMPH # 2.6 103/ul Normal 1.2-3.8 [facility] Comment on above: Performed By: #### C BC #### [facility] [address] [place] [address] Dr. Zaira Benoit Lymphocytes/100 WBC (Bld) 36.9 % Normal 20.5-60.0 [facility] Comment on above: Performed By: #### C BC #### [facility] [address] [place] [address] Dr. Zaira Benoit MANUAL DIFF REQ NO Normal [facility] Comment on above: Performed By: #### C BC #### [facility] [address] [place] [address] Dr. Zaira Benoit MCH (RBC) [Entitic mass] 33.2 pg Normal 25.9-34.0 [facility] Comment on above: Performed By: #### C BC #### [facility] [address] [place] [address] Dr. Zaira Benoit MCHC (RBC) [Mass/Vol] 33.3 g/dL Normal 29.9-35.2 [facility] Comment on above: Performed By: #### C BC #### [facility] [address] [address] [address] Zaira Benoit MCV (RBC) [Entitic vol] 99.8 fL Critically high 80.0-94.0 [facility] Comment on above: Performed By: #### C BC #### [facility] [address] [address] [address] Zaira Benoit MONO # 0.6 103/ul Normal 0.3-0.8 [facility] Comment on above: Performed By: #### C BC #### [facility] [address] [address] [address] Zaira Benoit Monocytes/100 WBC (Bld) 9.1 % Normal 1.7-12.0 [facility] Comment on above: Performed By: #### C BC #### [facility] [address] [address] [address] Zaira Benoit NEUT # 3.6 103/ul Normal 1.4-6.5 [facility] Comment on above: Performed By: #### C BC #### [facility] [address] [address] [address] Zaira Benoit Neutrophils/100 WBC (Bld) 50.7 % Normal 43.0-75.0 [facility] Comment on above: Performed By: #### C BC #### [facility] [address] [address] [address] Zaira Benoit Platelet mean volume (Bld) [Entitic vol] 9.3 fL Critically low 9.5-13.5 [facility] Comment on above: Performed By: #### C BC #### [facility] [address] [address] [address] Zaira Benoit PLT 191 103/ul Normal 150-450 [facility] Comment on above: Performed By: #### C BC #### [facility] [address] [address] [address] Zaira Benoit RBC 4.67 106/ul Critically low 4.70-6.10 [facility] Comment on above: Performed By: #### C BC #### [facility] [address] [address] [address] Zaira Benoit WBC 7.0 103/ul Normal 4.0-11.0 [facility] Comment on above: Performed By: #### C BC #### [facility] [address] [address] [address] Zaira Benoit GLYCOHEMOGLOBIN A1Con 2021 ADA RECOMMENDATION SEE BELOW Normal [facility] Comment on above: Result Comment: ADA RECOMMENDED LIMIT 4.0 - 6.0 ADA THERAPEUTIC TARGET < 7.0 ACTION SUGGESTED > 7.0 Performed By: #### A 1C #### [facility] [address] [address] [address] Zaira Benoit Glucose [Mass/Vol] 151 mg/dL Normal [facility] Comment on above: Performed By: #### A 1C #### [facility] [address] [place] [address] Dr. Zaira Benoit HbA1c (Bld) [Mass fraction] 6.9 % Critically high 4.5-6.2 [facility] Comment on above: Performed By: #### A 1C #### [facility] [address] [address] [address] Zaira Benoit LIPID PROFILEon 05-12-2022 CHOL-HDL RATIO NORM SEE BELOW Normal [facility] Comment on above: Result Comment: 3.3 - 4.4 LOW RISK 4.4 - 7.1 AVERAGE RISK 7.1 - 11.0 MODERATE RISK >11.0 HIGH RISK Performed By: #### L IPID, URIC, CMP #### [facility] [address] [place] [address] Dr. Zaira Benoit Cholesterol [Mass/Vol] 132 mg/dL Normal <=200 [facility] Comment on above: Performed By: #### L IPID, URIC, CMP #### [facility] [address] [address] [address] Zaira Benoit Cholesterol in HDL [Mass/Vol] 53 mg/dL Normal 40-60 [facility] Comment on above: Performed By: #### L IPID, URIC, CMP #### [facility] [address] [address] [address] Zaira Benoit Cholesterol in LDL [Mass/Vol] 59.6 mg/dL Normal [facility] Comment on above: Performed By: #### L IPID, URIC, CMP #### [facility] [address] [address] [address] Zaira Benoit Cholesterol.total/Ch olesterol in HDL [Mass ratio] 2.5 {ratio} Normal [facility] Comment on above: Performed By: #### L IPID, URIC, CMP #### [facility] [address] [address] [address] Zaira Benoit HDL NORMAL > or = 60 mg/dl - LO W CARDIOVASCULAR RISK <40 mg/dl - HIGH CARDIOVASCULAR RISK Normal [facility] Comment on above: Performed By: #### L IPID, URIC, CMP #### [facility] [address] [address] [address] Zaira Benoit LDL CALC NORMAL SEE BELOW Normal [facility] Comment on above: Result Comment: <100 mg/dl OPTIMAL 100 - 129 mg/dl NEAR OR ABOVE OPTIMAL 130 - 159 mg/dl BORDERLINE HIGH 160 - 189 mg/dl HIGH >190 mg/dl VERY HIGH Performed By: #### L IPID, URIC, CMP #### [facility] [address] [address] [address] Zaira Benoit Triglyceride [Mass/Vol] 97 mg/dL Normal <=150 [facility] Comment on above: Performed By: #### L IPID, URIC, CMP #### [facility] [address] [address] [address] Zaira Benoit VLDL CALC 19.4 mg/dL Normal [facility] Comment on above: Performed By: #### L IPID, URIC, CMP #### [facility] [address] [address] [address] Zaira Benoit PROF 14(COMP METB)on 022 Albumin [Mass/Vol] 3.9 g/dL Normal 3.4-5.0 [facility] Comment on above: Performed By: #### L IPID, URIC, CMP #### [facility] [address] [address] [address] Zaira Benoit Albumin/Globulin [Mass ratio] 1.1 {ratio} Normal [facility] Comment on above: Performed By: #### L IPID, URIC, CMP #### [facility] [address] [address] [address] Zaira Benoit ALP [Catalytic activity/Vol] 92 U/L Normal 46-116 [facility] Comment on above: Performed By: #### L IPID, URIC, CMP #### [facility] [address] [address] [address] Zaira Benoit ALT [Catalytic activity/Vol] 31 U/L Normal 16-63 [facility] Comment on above: Performed By: #### L IPID, URIC, CMP #### [facility] [address] [address] [address] Zaira Benoit Anion gap [Moles/Vol] 12.2 mmol/L Normal [facility] Comment on above: Performed By: #### L IPID, URIC, CMP #### [facility] [address] [address] [address] Zaira Benoit AST [Catalytic activity/Vol] 20 U/L Normal 15-37 [facility] Comment on above: Performed By: #### L IPID, URIC, CMP #### [facility] [address] [address] [address] Zaira Benoit Bilirubin [Mass/Vol] 0.4 mg/dL Normal 0.2-1.0 [facility] Comment on above: Performed By: #### L IPID, URIC, CMP #### [facility] [address] [address] [address] Zaira Benoit Calcium [Mass/Vol] 8.8 mg/dL Normal 8.5-10.1 [facility] Comment on above: Performed By: #### L IPID, URIC, CMP #### [facility] [address] [address] [address] Zaira Benoit Chloride [Moles/Vol] 101 mmol/L Normal 98-107 [facility] Comment on above: Performed By: #### L IPID, URIC, CMP #### [facility] [address] [address] [address] Zaira Benoit CO2 [Moles/Vol] 29.3 mmol/L Normal 21.0-32.0 [facility] Comment on above: Performed By: #### L IPID, URIC, CMP #### [facility] [address] [address] [address] Zaira Benoit Creatinine [Mass/Vol] 0.88 mg/dL Normal 0.70-1.30 [facility] Comment on above: Performed By: #### L IPID, URIC, CMP #### [facility] [address] [address] [address] Zaira Benoit EGFR-AF INDIAN >60 Normal >=60 [facility] Comment on above: Performed By: #### L IPID, URIC, CMP #### [facility] [address] [address] [address] Zaira Benoit EGFR-NON AF INDIAN >60 Normal >=60 [facility] Comment on above: Performed By: #### L IPID, URIC, CMP #### [facility] [address] [address] [address] Zaira Benoit Globulin (S) [Mass/Vol] 3.6 g/dL Normal [facility] Comment on above: Performed By: #### L IPID, URIC, CMP #### [facility] [address] [address] [address] Zaira Benoit Glucose [Mass/Vol] 128 mg/dL Critically high 74-106 [facility] Comment on above: Performed By: #### L IPID, URIC, CMP #### [facility] [address] [address] [address] Zaira Benoit Potassium [Moles/Vol] 4.5 mmol/L Normal 3.5-5.1 [facility] Comment on above: Performed By: #### L IPID, URIC, CMP #### [facility] [address] [address] [address] Zaira Benoit Protein [Mass/Vol] 7.5 g/dL Normal 6.4-8.2 [facility] Comment on above: Performed By: #### L IPID, URIC, CMP #### [facility] [address] [address] [address] Zaira Benoit Sodium [Moles/Vol] 138 mmol/L Normal 136-145 [facility] Comment on above: Performed By: #### L IPID, URIC, CMP #### [facility] [address] [place] [address] Dr. Zaira Benoit Urea nitrogen [Mass/Vol] 4.0 mg/dL Critically low 7.0-18.0 [facility] Comment on above: Performed By: #### L IPID, URIC, CMP #### [facility] [address] [place] [address] Dr. Zaira Benoit Urea nitrogen/Creatinine [Mass ratio] 4.5 mg/mg Normal [facility] Comment on above: Performed By: #### L IPID, URIC, CMP #### [facility] [address] [place] [address] Dr. Zaira Benoit URIC ACID SERUMon 05-12-2022 Urate [Mass/Vol] 7.5 mg/dL Critically high 3.5-7.2 [facility] Comment on above: Performed By: #### L IPID, URIC, CMP #### [facility] [address] [place] [address] Dr. Zaira Benoit No Panel Information [facility] Vital Signs Date Time Vital Sign Value Performing Clinician Facility 07-05-2024 13:49-0500 Body height 175.3 cm Juan Manuel Ford DPM Work Phone: [facility] 07-05-2024 13:49-0500 Body mass index (BMI) [Ratio] 29.53 kg/m2 Juan Manuel Ford DPM Work Phone: [facility] 07-05-2024 13:49-0500 Body weight 90.72 kg Juan Manuel Ford DPM Work Phone: [facility] 07-05-2024 13:49-0500 Diastolic blood pressure 79 mm[Hg] Juan Manuel Ford DPM Work Phone: [facility] 07-05-2024 13:49-0500 Heart rate 82 /min Juan Manuel Ford DPM Work Phone: [facility] 07-05-2024 13:49-0500 Systolic blood pressure 131 mm[Hg] Juan Manuel Ford DPM Work Phone: [facility] 10-24-2023 14:53-0500 Body weight 97.52 kg Ale Hickman MD Work Phone: [facility] 10-24-2023 14:53-0500 Diastolic blood pressure 66 mm[Hg] Ale Hickman MD Work Phone: [facility] 10-24-2023 14:53-0500 Heart rate 79 /min Ale Hickman MD Work Phone: [facility] 10-24-2023 14:53-0500 Systolic blood pressure 157 mm[Hg] Ale Hickman MD Work Phone: [facility] 10-15-2022 10:45-0500 Diastolic blood pressure 79 mm[Hg] Jf SANCHES [facility] 10-15-2022 10:45-0500 Heart rate 86 /min Fj SANCHES [facility] 10-15-2022 10:45-0500 Systolic blood pressure 128 mm[Hg] Jf SANCHES [facility] 06-28-2022 13:37-0500 Blood Pressure Location Jf SANCHES [facility] 06-28-2022 13:37-0500 Diastolic blood pressure 89 mm[Hg] Jf SANCHES [facility] 06-28-2022 13:37-0500 Heart rate 74 /min Jf SANCHES [facility] 06-28-2022 13:37-0500 Respiratory rate 16 /min Jf SANCHES [facility] 06-28-2022 13:37-0500 Systolic blood pressure 140 mm[Hg] Jf SANCHES [facility] Encounters Encounter Date Encounter Type Care Provider Facility Start: 07-05-2024 End: 07-05-2024 Bamboo flowsheet Juan Manuel Ford DPM Work Phone: [facility] Start: 07-05-2024 End: 07-05-2024 Bamboo flowsheet Juan Manuel Ford DPM Work Phone: [facility] Start: 07-05-2024 End: 07-05-2024 Office outpatient visit 15 minutes Juan Manuel Ford DPM Work Phone: [facility] Comment on above: Capsulitis of metata rsophalangeal (MTP) joint of right foot (Primary Dx); Diabetes mellitus due to underlying condition with diabetic polyneuropathy, unspecified whether detention insulin use ([facility]/HCC); Pain due to onychomycosis of toenails of both feet; Venous insufficiency Start: 07-05-2024 End: 07-05-2024 ambulatory JUAN MANUEL FORD Not Available Start: 05-31-2024 End: 05-31-2024 ambulatory Ale Hickman [...] Not Available Start: 02-09-2024 End: 02-09-2024 ambulatory JUAN MANUELLa FORD Not Available Start: 02-09-2024 End: 02-09-2024 ambulatory HILDA DILCIA [facility] Start: 01-26-2024 End: 01-26-2024 ambulatory KAIA Elana EGAN Not Available Start: 12-27-2023 End: 12-27-2023 ambulatory MARQUIS WEAVER Facility:[facility] Start: 12-27-2023 End: 12-27-2023 Patient [...] Start: 12-08-2023 End: 12-08-2023 ambulatory ALE HICKMAN Facility:[facility] Start: 12-08-2023 End: 12-08-2023 Patient encounter procedure Ale Hickman MD Work Phone: Urology Comment on above: Elevated prostate sp ecific antigen (PSA) (Primary Dx); APPOINTMENT CANCELLED Start: 12-08-2023 End: 12-08-2023 Telemedicine consultation with patient Ale Hickman MD Work Phone: [facility] Start: 12-08-2023 Telephone encounter Ale Hickman MD Work Phone: [facility]rology Start: 11-21-2023 End: 11-22-2023 ambulatory Trevor Forte MD Facility: [facility] Start: 11-17-2023 End: 11-17-2023 ambulatory RAUL SUN Facility:[facility] Start: 10-24-2023 End: 10-24-2023 ambulatory RAUL SUN Facility:[facility] Start: 10-24-2023 End: 10-24-2023 Patient encounter procedure Ale Hickman MD Work Phone: Urology Comment on above: Elevated prostate sp ecific antigen (PSA) (Primary Dx); BPH without obstruction/lower urinary tract symptoms Start: 10-21-2023 End: 10-21-2023 ambulatory [facility] Start: 09-21-2023 End: 09-21-2023 ambulatory [facility] Start: 08-26-2023 End: 08-26-2023 ambulatory [facility] Start: 06-27-2023 End: 06-27-2023 ambulatory RAUL SUN Facility:[facility] Start: 06-06-2023 End: 06-06-2023 ambulatory RAUL SUN Facility:[facility] Start: 06-06-2023 End: 06-06-2023 Patient encounter [...] Start: 10-15-2022 End: 10-16-2022 ambulatory Jf SANCHES Facility:[facility] Start: 10-15-2022 End: 10-16-2022 ambulatory Jf SANCHES Facility: [facility] Start: 10-15-2022 End: 10-15-2022 Lab Drop off Jf SANCHES [facility] Start: 10-15-2022 End: 10-15-2022 Patient encounter procedure [facility] SAN[facility] Start: 07-14-2022 End: 07-14-2022 ambulatory Daina Judge Facility:[facility] Start: 07-14-2022 End: 07-14-2022 ambulatory [employer]ATOR-C Daina Judge Work Phone: [facility] Work Phone: Start: 07-14-2022 End: 07-14-2022 Patient encounter procedure [employer]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 Zaira Benoit Start: 06-16-2022 Post-cataract laser surgery Radha Perez MD Work Phone: Start: 05-12-[address] ZOLTAN SANCHES . Comment on above: Performed By: #### P SASC #### [facility] [address] [place] [address] Dr. Zaira Benoit Start: 02-17-2022 Computerized ophthal [...] PM EDT Office Visit [facility] [address] [place] [address] Marquis Weaver S, OD [address] [place] [address] Annual Full Eye Exam with [facility] Comment on above: Annual Full Eye Exam with Mac OCT Start: 12-26-2024 Glaucoma screening Dilated Retinal E xam [facility] Start: 2024 RSV Vaccine (1 - 1-d ose 75+ series) RSV Vaccine (1 - 1-dose 75+ series) [facility] Start: 09-13-2024 End: 09-13-2024 Patient encounter procedure 09/13/2024 2:20 PM EST Procedure Visit [facility] [address] [facility] [address] [place] [address] Juan Manuel Ford DPM [address] [facility] [address] [place] [address] [facility] Start: 09-06-2024 End: 09-06-2024 Patient encounter procedure 09/06/2024 1:35 PM EST Office Visit [facility] [address] [place] [address] Kaia Egan MD [address] [place] [address] [facility] Start: 06-27-2024 Glaucoma screening Dilated Retinal E xam [facility] Start: 06-06-2024 Hepatitis C antibody , confirmatory test Dilated Retinal Exam [facility] Start: 05-31-2024 End: 06-30-2025 MR Prostate WO and W contrast IV MRI PROSTATE WO/W IVCON Radiology Routine Encounter for observation for other suspected diseases and conditions ruled out Expected: 05/31/2024 (Approximate), Expires: 06/30/2025 [facility] Work Phone: Comment on above: Expected: 05/31/2024 (Approximate), Expires: 06/30/2025 Start: 05-31-2024 End: 06-30-2025 MR Unspecified body region 3D post processing MRI 3D POST PROCESSING Radiology Routine Elevated prostate specific antigen (PSA) Prostate cancer (HCC) Expected: 05/31/2024 (Approximate), Expires: 06/30/2025 [facility] Comment on above: Expected: 05/31/2024 (Approximate), Expires: 06/30/2025 Start: 05-31-2024 End: 08-30-2024 Prostate Specific Ag Free [Mass/volume] in Serum or Plasma PROSTATE SPECIFIC ANTIGEN, FREE Lab Routine Elevated prostate specific antigen (PSA) Prostate cancer (HCC) Encounter for observation for other suspected diseases and conditions ruled out Expected: 05/31/2024 (Approximate), Expires: 08/30/2024 [facility] Comment on above: Expected: 05/31/2024 (Approximate), Expires: 08/30/2024 Start: 04-22-2024 Covid-19 Vaccine ( season) Covid-19 Vaccine () [facility] Start: 04-22-2024 Influenza vaccination [facility] Start: 12-27-2023 End: 12-27-2023 Patient encounter procedure 12/27/2023 1:00 PM EDT Office Visit [facility] [address] [place] [address] Marquis Weaver S, OD [address] [place] [address] RTC 6 months Dilate and oct [facility] Comment on above: RTC 6 months Dilate and oct [facility] Start: 11-24-2023 End: 02-23-2024 Prostate specific Ag [Mass/volume] in Serum or Plasma PSA/PROSTSPECAG DIAG Lab Routine Elevated prostate specific antigen (PSA) BPH without obstruction/lower urinary tract symptoms Expected: 11/24/2023 (Approximate), Expires: 02/23/2024 [facility] Work Phone: Comment on above: Expected: 11/24/2023 (Approximate), Expires: 02/23/2024 Start: 08-22-2023 Advance Directive Discussion Advance Directive Discussion [facility] Start: 08-22-2023 Behavioral Health Screening Behavioral Health Screening [facility] Start: 08-22-2023 Depression Assessment Depression Ass essment [facility] Start: 06-16-2023 Hepatitis C antibody , confirmatory test DILATED RETINAL EXAM [facility] Start: 04-22-2023 Covid-19 Vaccine () Covid-19 Vaccine () [facility] Start: 04-22-2023 Influenza vaccination [facility] Start: 03-01-2023 Hepatitis C antibody , confirmatory test DILATED RETINAL EXAM [facility] Start: 02-17-2023 Hepatitis C antibody , confirmatory test DILATED RETINAL EXAM [facility] Start: 12-11-2022 COVID-19 VACCINE (5 - Pfizer series) COVID-19 VACCINE (5 - Pfizer series) [facility] Start: 08-22-2022 ADVANCE DIRECTIVE DISCUSSION ADVANCE DIRECTIVE DISCUSSION [facility] Start: 08-22-2022 DEPRESSION ASSESSMENT DEPRESSION ASS ESSMENT [facility] Start: 05-07-2022 COVID-19 VACCINE (4 - Booster for Pfizer series) COVID-19 VACCINE (4 - Booster for Pfizer series) [facility] Start: 04-22-2022 Influenza vaccination [facility] Start: 08-22-2021 ADVANCE DIRECTIVE DISCUSSION ADVANCE DIRECTIVE DISCUSSION [facility] Start: 08-22-2021 DEPRESSION ASSESSMENT DEPRESSION ASS ESSMENT [facility] Start: 04-16-2021 COVID-19 VACCINE (3 - Booster for Pfizer series) COVID-19 VACCINE (3 - Booster for Pfizer series) [facility] Start: 07-25-2020 COLORECTAL CANCER SCREENING COLORECTAL CANCER SCREENING [facility] Start: 07-25-2020 FECAL OCCULT BLOOD FECAL OCCULT BLOO D [facility] Start: 07-25-2020 Hepatitis B screening URINE ALBUMIN:CREATININE RATIO [facility] Start: 07-25-2020 Hepatitis B surface antibody level LDL CHOLESTEROL [facility] Start: 07-25-2020 Screening for malign ant neoplasm of colon [facility] Start: 01-24-2020 Hemoglobin A1c measurement HbA1C [facility] Start: 01-24-2020 Hemoglobin A1c/Hemoglobin.total in Blood HBA1C [facility] Start: 2014 Pneumococcal Vaccine : 65+ Years (1 of 1 - PCV) Pneumococcal Vaccine: 65+ Years (1 of 1 - PCV) [facility] Start: 2009 Hepatitis B Vaccine (1 of 3 - Risk 3-dose series) Hepatitis B Vaccine (1 of 3 - Risk 3-dose series) [facility] Start: 2009 RSV Vaccine (1 - 1-d ose 60+ series) RSV Vaccine (1 - 1-dose 60+ series) [facility] Start: 11-27-1999 SHINGRIX VACCINE (1 of 2) SHINGRIX VACCINE (1 of 2) [facility] Start: 1994 COLOGUARD (FIT-DNA) COLOGUARD (FIT-D NA) [facility] Start: 1994 Colonoscopy COLONOSCOPY [facility] Start: [address] COLONOGRAPHY [facility] Start: 1994 Screening for malign ant neoplasm of colon [facility] Start: 1994 SIGMOIDOSCOPY SIGMOIDOSCOPY [facility] Start: 1968 Urine microalbumin profile [facility] Start: 11-27-1967 ANNUAL PCP TEAM BALLISTIC EXPERT GERSON DISEASE VISIT ANNUAL PCP TEAM CHRONIC DISEASE VISIT [facility] Start: 11-27-1967 Anxiety Screening Anxiety Screening [facility] Start: 11-27-1967 Depression Screening Depression Scre ening [facility] Start: 11-27-1967 HEPATITIS C SCREENING HEPATITIS C [facility] Start: 11-27-1967 Hepatitis C screening Hepatitis C [facility] Start: 1961 Adult depression screening assessment DEPRESSION SCREENING [facility] Start: 11-27-1959 3 comp foot exam completed DIABETIC FOOT EXAM [facility] Start: 11-27-1959 Diabetic foot examination Diabetic Foot Exam [facility] Start: 11-27-1955 Pneumococcal Vaccine : 65+ (1 - PCV) Pneumococcal Vaccine: 65+ (1 - PCV) [facility] Start: 11-27-1955 Pneumococcal Vaccine : 65+ (1 of 2 - PCV) Pneumococcal Vaccine: 65+ (1 of 2 - PCV) [facility] Start: 11-27-1955 PNEUMOCOCCAL: 65+ (1 - PCV) PNEUMOCOCCAL: 65+ (1 - PCV) [facility] Start: 1949 ABDOMINAL AORTIC ANEURYSM SCREENING ABDOMINAL AORTIC ANEURYSM SCREENING [facility] Start: 1949 Abdominal aortic aneurysm screening Abdominal Aortic Aneurysm Screening [facility] Start: 1949 Screening for malign ant neoplasm of [facility] Immunizations Immunization Date Immunization Notes Care Provider Rosalind alvares 03-12-2022 SARS-CoV-2 mRNA (lnqekgnbqsv-jxxo-mayqt se) vaccine Jf SANCHES [facility] Comment on above: Result Comment: 2021: TPV70 11-14-2020 COVID-19 vaccine, ag e 12+ yr (PFIZER-BIONTECH - PURPLE TOP) Radha Perez MD Work Phone: [facility] Comment on above: Result Comment: 2021: TPV70 10-24-2020 COVID-19 vaccine, ag e 12+ yr (PFIZER-BIONTECH - PURPLE TOP) Radha Perez MD Work Phone: [facility] Comment on above: Result Comment: 2021: [id number] Payers Date Payer Category Payer Self-pay 2021 Medicare (Managed Care) JIL SO [id number] 2017 Unknown JIL AVILA S AND BLUE SHIELD JIL VARELA O [id number] 2017-Present [phone] [address] [place] [address] O [id number] 2017 Unknown [id number] 1959 Medicare [id number] 1949 Unknown [id number] [id number]. 2.593 1949 Unknown [id number] [id number]. 2.593 1949 Unknown [id number] [id number]. 2.593 1949 Unknown [id number] [id number]. 2.727 1949 Unknown [id number] [id number]. 2.727 1949 Unknown [id number] 2.16.840.1.833039.3.579. 2.727 1949 Unknown [id number] 2.16.840.1.136585.3.579. 2.196 1949 Unknown [id number] 2.16.840.1.775575.3.579. 2.196 1949 Unknown [id number] 2.16.840.1.597145.3.579. 2.1259 1949 Unknown [id number] 2.16.840.1.056319.3.579. 2.1259 1949 Unknown [id number] 2.16.840.1.212394.3.579. 2.1259 1949 Unknown [id number] [id number]. 2.1259 Medicare Medicare [id number] Unknown [id number]. 2.531 Social History Date Type Detail Facility Start: 11-03-2016 End: 01-25-2023 Tobacco smoking status NHIS Smokes tobacco daily [facility] History of tobacco use Cigarette Smoker [facility] Start: 11-03-2016 End: 07-05-2024 Cigarettes smoked current (pack per day) - Reported 1 [facility] Start: 11-03-2016 End: 01-25-2023 Tobacco use and exposure Smokeless tobacco non-user [facility] Start: 02-17-2022 End: 07-05-2024 Alcohol intake Current drinker of alcohol (finding) [facility] Start: 11-20-2018 History SDOH Alcohol Comment per day [facility] Start: 1950 Sex Assigned At Not on file [facility] Start: 06-28-2022 End: 10-15-2022 Tobacco smoking status Heavy tobacco smoker (finding) [facility] Start: 06-16-2022 End: 07-05-2024 Sex Assigned At Male [facility] Start: 1950 Sex Assigned At Male F [facility] National Score (1-10 0), lower number is lower risk 87 [facility] Medical Equipment Procedure Code Equipment Code Equipment Origin al Text Equipment Identifier Dates Lens Acrysof Iq +19.5 Diopter Natural Stableforce 0 D Biconvex 118.7 - [id number] Start: 02-07-2017 Functional Status Date Assessment Result Facility 10-15-2022 Functional Status N/A [facility] 06-28-2022 Functional Status N/A [facility] Clinical Notes 02-17-2022 to 07-05-2024 Juan Manuel Ford DPM - 07/05/2024 1:50 PM ESTTelephone Encounter - Paty Lacey - 06/01/2024 10:53 AM EDTTelephone Encounter - Paty Lacey - 06/01/2024 10:53 AM EDTPatient Instructions Note Date & Type Note Facility 07-05-2024 History of Present illness Narrative Patient: Gianfranco Martin : 1950 PCP: No primary care provider on file. SUBJECTIVE This is a 73 y.o. male that presents today with a CC of elongated, thick nails. Pt states nails have been elongated and thick for many years and cause pain with ambulation in shoegear. Pt has tried previous treatment with minimal relief. Pt presents today for nail care and treatment. Patient is DM2 Pt also has history of venous stasis to b/l lower extremities. Patient's history of recent right foot pain and points behind his right 4th toe and area of concern and states it is intermittent in nature and up to a 2/10 Allergies: Allergies Allergen Reactions Amlodipine Swelling Penicillin G Unknown Penicillins Other, Rash and Unknown Other Reaction(s): Unknown skin reaction Past Medical History: Past Medical History: Diagnosis Date COPD (chronic obstructive pulmonary disease) ([facility]) Depression ([facility]) DM (diabetes mellitus) ([facility]) HLD (hyperlipidemia) ([facility]) HTN (hypertension) ([facility]) Squamous cell skin cancer Medications: Current Outpatient Medications: atenolol (Tenormin) 50 MG tablet, 1 (one) time each day at the same time., Disp: , Rfl: atorvastatin (Lipitor) 10 MG tablet, 1 (one) time each day at the same time., Disp: , Rfl: busPIRone (Buspar) 10 MG tablet, Take 10 mg by mouth in the morning and 10 mg before bedtime., Disp: , Rfl: clobetasol (Temovate) 0.05 % cream, apply to bilateral lower legs topically Twice a day as needed for 30 day(s), Disp: , Rfl: doxycycline (Monodox) 50 MG capsule, Take 1 capsule, by mouth, once daily, 30 days, Disp: 30 capsule, Rfl: 11 Lasix 20 MG tablet, 1 (one) time each day at the same time., Disp: , Rfl: loratadine (Claritin) 10 MG tablet, 1 (one) time each day at the same time., Disp: , Rfl: losartan-hydroCHLOROthiazide (Hyzaar) 50-12.5 MG tablet, Take 1 tablet by mouth in the morning and 1 tablet before bedtime., Disp: , Rfl: metFORMIN (Glucophage) 500 MG tablet, 1 (one) time each day at the same time., Disp: , Rfl: naltrexone (Depade) 50 MG tablet, 1 (one) time each day at the same time., Disp: , Rfl: Norvasc 5 MG tablet, 1 (one) time each day at the same time., Disp: , Rfl: traZODone (Desyrel) 150 MG tablet, 1 (one) time each day at the same time., Disp: , Rfl: Ventolin HFA 108 (90 Base) MCG/ACT inhaler, every 4 (four) hours., Disp: , Rfl: Social History: Social History Socioeconomic History Marital status: Spouse name: Not on file Number of children: Not on file Years of education: Not on file Highest education level: Not on file Occupational History Not on file Tobacco Use Smoking status: Every Day Types: Cigarettes Smokeless tobacco: Never Vaping Use Vaping status: Never Used Substance and Sexual Activity Alcohol use: Yes Drug use: Not on file Sexual activity: Not on file Other Topics Concern Not on file Social History Narrative Not on file Social Drivers of Health Financial Resource Strain: Not on file Food Insecurity: Not on file Transportation Needs: Not on file Physical Activity: Not on file Stress: Not on file Social Connections: Not on file Intimate Partner Violence: Unknown (10/13/2023) [facility] [place] Safety & Environment Fear of Current or Ex-Partner: Not on file Emotionally Abused: Not on file Physically Abused: Not on file Sexually Abused: Not on file Physically or Sexually Abused: Not on file Housing Stability: Not on file ROS: Gastrointestinal: denies abdominal pain, ulcers, or changes in appetite or bowel habits Musculoskeletal: positive hx of arthritis, loss of strength, with positive history of back pain Cardiovascular: denies CP, palpitations, irregular rhythms OBJECTIVE LE EXAM: DERM: Elongated thick yellow crumbly nails digits 1 through 10. Negative hair growth with thin shiny atrophic skin bilaterally. Plus one pitting edema to bilateral ankles with stasis dermatitis bilateral lower extremities VASC: Negative DP and negative PT pedal pulses NEURO: 5.07 [place] Sally monofilament test diminished to digits and forefoot bilaterally 125Hz tuning fork diminished to 1st MPJ bilaterally ORTHO: Positive pain on palpation to nails 1 through 10 Minimal pain on palpation to right 4th MPJ plantar capsule with negative Jeremy test ASSESSMENT 1. Diabetes mellitus due to underlying condition with diabetic polyneuropathy, unspecified whether detention insulin use ([facility]) 2. Pain due to onychomycosis of toenails of both feet 3. Venous insufficiency 4. Capsulitis of metatarsophalangeal (MTP) joint of right foot PLAN Discussed proper foot care with patient today. Debride nails in length and thickness digits 1 through 10 Patient educated today on proper diabetic foot care including monitoring feet daily for any signs of infection openings in the skin or irregularities to both feet. Patient had a diabetic neurological exam today to both their feet and discussed proper shoe gear. Visit spent with patient education on condition and treatment of condition. Discussed possible steroid injection versus steroid pack and patient declined both today and recommended he take ibuprofen p.r.n. and if worsens contact Podiatry Juan Manuel Ford DPM documented in this encounter [facility] 06-01-2024 Telephone encounter Note Julius Hickman- Spoke to patient Told Patient I was calling to get him scheduled for PSA and MRI with a follow up to see you. 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 Pt explained his Urology provider, Dr Barroso at [facility], scheduled him an MRI and he was [...] Paty Lacey June 01, 2024 11:08 AM [facility] 06-01-2024 Miscellaneous Notes Julius Hickman- Spoke to patient Told Patient I was calling to get him scheduled for PSA and MRI with a follow up to see you. 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 Pt explained his Urology provider, Dr Barroso at [facility], scheduled him an MRI and he was [...] up. Mychart sent. documented in this encounter [facility] 05-31-2024 Telephone encounter Note Images from the original note were not included. Jovita Glover Urol Schedulers Pool Please schedule patient for an MRI Prostate and then for an OV to follow per request! LVM for pt to call back and schedule MRI and follow up. Mychart sent. [facility] 05-31-2024 Instructions Jovita Glover - 05/31/2024 2:29 PM EDT PSA test and MRI Prostate Schedule office visit to follow documented in this encounter [facility] 05-31-2024 Note HNO ID: [id number] Author: ?, ?, ? Service: ? Author Type: ? Type: Progress Notes Filed: 05/31/2024 14:32 Note Text: INPATIENT TELEPHONE VISIT PROGRESS NOTE SERVICE DATE: 05/31/2024 SERVICE TIME: 2:00pm Gianfranco Martin has consented to this telephone encounter. Persons Present: patient Chief Complaint/Reason: discuss need for prostate biopsy HPI: Data Reviewed: Most recent labs PSA from [facility] on 05-18-24 = 16.17 (normal values 0-4) [...] and in the presence of Dr. Hickman. Ann Patelibe Provider Attestation: Ale Huggins M.D., personally performed the services described in this documentation. All medical record entries made by the scribe were at my direction and in my presence. I have reviewed the chart and discharge instructions (if applicable) and agree that the record reflects my personal performance and is accurate and complete. Ale Hickman M.D. [facility] 05-31-2024 History of Present illness Narrative INPATIENT TELEPHONE VISIT PROGRESS NOTE SERVICE DATE: 05/31/2024 SERVICE TIME: 2:00pm Gianfranco Martin has consented to this telephone encounter. Persons Present: patient Chief Complaint/Reason: discuss need for prostate biopsy HPI: Data Reviewed: Most recent labs PSA from [facility] on 05-18-24 = 16.17 (normal values 0-4) [...] TIME: 2:28PM By signing my name below, Jovita Huggins, attest that this documentation has been prepared under the direction and in the presence of Dr. Hickman. Ann Patelibranjan Provider Attestation: Ale Huggins M.D., personally performed the services described in this documentation. All medical record entries made by the scribe were at my direction and in my presence. I have reviewed the chart and discharge instructions (if applicable) and agree that the record reflects my personal performance and is accurate and complete. Ale Hickman M.D. documented in this encounter [facility] 05-25-2024 Telephone encounter Note Call placed to patient in regards to message below. LVMM for patient to return call back to [phone], in regards to his recent lab results and orders on how Dr. Hickman would like to proceed. [facility] 05-25-2024 Miscellaneous Notes Call placed to patient in regards to message below. LVMM for patient to return call back to [phone], in regards to his recent lab results and orders on how Dr. Hickman would like to proceed. Please notify patient his PSA is very high and he is at high risk of having prostate cancer. he needs to schedule his prostate biopsy unless he had it done else where PSA from [facility] on 05-18-24 = 16.17 (normal values 0-4) Can be done in office under local or in ASC under MARY ANN Hickman MD documented in this encounter [facility] 05-25-2024 Telephone encounter Note Please notify patient his PSA is very high and he is at high risk of having prostate cancer. he needs to schedule his prostate biopsy unless he had it done else where PSA from [facility] on 05-18-24 = 16.17 (normal values 0-4) Can be done in office under local or in ASC under MAC Ale Hickman MD [facility] Work Phone: 05-25-2024 Note HNO ID: [id number] Author: ALE HICKMAN MD Service: ? Author Type: Physician Type: Progress Notes Filed: 05/25/2024 07:14 Note Text: PSA still rising PSA from [facility] on 05-18-24 = 16.17 (0-4) [facility] 05-25-2024 History of Present illness Narrative PSA still rising PSA from [facility] on 05-18-24 = 16.17 (0-4) documented in this encounter [facility] 02-09-2024 Note Greatly improved wit h increased dose of lasix. Trace edema noted today Renal function stable [facility] 02-09-2024 Note Hypertension is unch anged- stable well controlled Continue current treatment regimen. Dietary sodium restriction. Continue current medications. Blood pressure will be reassessed at the next regular appointment. [facility] 02-09-2024 Note Recommended smoking cessation after 5 min discussion and pt declined [facility] 02-09-2024 Note Patient here for 3 m [...] All other systems reviewed and are negative. [facility] 02-09-2024 Note [facility] CARDIOLOGY PROGR ESS NOTE [...] noted today Renal function stable RTC 6months [facility] 12-27-2023 Note Date of Procedure 12/27/2023. Interpretation Right Eye Normal without fluid. Findings include Negative for Intraretinal fluid, Cystoid macular edema. Left Eye Abnormal foveal contour. Findings include Negative for Intraretinal fluid, Cystoid macular edema. Interval Change Right Eye Stable. Left Eye Stable. [facility] 12-27-2023 Note HNO ID: [id number] Author: MARQUIS WEAVER OD Service: ? Author Type: CUSTOMER SERVICE SECURITY OFFICER Type: Progress Notes Filed: 12/27/2023 13:45 Note [...] Stable Monitor December 27, 2023 1:40 PM [facility] 12-27-2023 History of Present illness Narrative [...] 2023 1:40 PM documented in this encounter [facility] 12-13-2023 Telephone encounter Note Please call again and update me Please notify patient that his PSA is rising from 9 to 10.6 He needs prostate bx Can be done in office under local anesthesia or in ASC under MAC ( [place] [facility]) He can come to greens picker flyer on prostate bx To schedule office visit to discuss prostate bx if he wishes Ale Hickman MD [facility] Work Phone: 12-13-2023 Miscellaneous Notes Please call again and update me Please notify patient that his PSA is rising from 9 to 10.6 He needs prostate bx Can be done in office under local anesthesia or in ASC under MAC ( [place] [facility]) He can come to greens picker flyer on prostate bx To schedule office visit to discuss prostate bx if he wishes Ale Hickman MD documented in this encounter [facility] 12-08-2023 Miscellaneous Notes Phone visit unsuccessful and had only VOICE MAIL X 2 I DID NOT LEAVE A MESSAGE Please notify patient that his PSA is rising from 9 to 10.6 He needs prostate bx Can be done in office under local anesthesia or in ASC under MAC ( [place] [facility]) He can come to greens picker flyer on prostate bx To update me Ale Hickman MD documented in this encounter [facility] 12-08-2023 Note HNO ID: [id number] Author: ?, ?, ? Service: ? Author Type: ? Type: Progress Notes Filed: 12/08/2023 14:51 Note Text: 72 year old male with nuclear sclerotic senile, ERM, pseudophakia here today for elevated PSA. PSA PSA PSA, PERCENT FREE Latest Ref Rng <2.60 ng/mL % 07/25/2019 5.33 (H) 6 5.34 (H) 11/17/2023 10.58 (H) Attempted to call patient at 2:41. No answer. [facility] 12-08-2023 History of Present illness Narrative 72 year old male with nuclear sclerotic senile, ERM, pseudophakia here today for elevated PSA. PSA PSA PSA, PERCENT FREE Latest Ref Rng <2.60 ng/mL % 07/25/2019 5.33 (H) 6 5.34 (H) 11/17/2023 10.58 (H) Attempted to call patient at 2:41. No answer. documented in this encounter [facility] 10-24-2023 Instructions Raven Babcock - 10/24/2023 3:05 PM EST -PSA in 4 weeks at [facility] lab -Schedule telephone visit in 5 weeks to discuss PSA blood test documented in this encounter [facility] 10-24-2023 History of Present illness Narrative Gianfranco Martin [address] [place] [address] 72 year old male with nuclear sclerotic [...] 2007 Retinal detachment, left eye, repaired in [place], [place] PAST SURGICAL HISTORY OF hernia sx, POST-CATARACT LASER SURGERY Left 06/16/2022 YAG Capsulotomy OS by Dr. Perez X[facility]SL [facility] RMVL INSJ IO LENS PROSTH W/O ECP [...] nontender, w/o nodules. Good anal sphincter tone. [employer] SYMPTOMS SCORE. Date 10/24/2023 1. [...] and in the presence of Dr. Hickman. Ann Oliveiraibe Provider Attestation: I, Ale Hickman M.D., personally performed the services described in this documentation. All medical record entries made by the scribe were at my direction and in my presence. I have reviewed the chart and discharge instructions (if applicable) and agree that the record reflects my personal performance and is accurate and complete. Ale Hickman M.D. documented in this encounter [facility] 10-24-2023 Note HNO ID: [id number] Author: ?, ?, ? Service: ? Author Type: ? Type: Progress Notes Filed: 10/24/2023 15:09 Note Text: Gianfranco Martin [address] [place] [address] 72 year old male with nuclear sclerotic [...] 2007 Retinal detachment, left eye, repaired in [place], [place] PAST SURGICAL HISTORY OF hernia sx, [...] nontender, w/o nodules. Good anal sphincter tone. [employer] SYMPTOMS SCORE. Date 10/24/2023 1. [...] and in the presence of Dr. Hickman. Ann [facility] Provider Attestation: Ale Huggins M.D., personally performed the services describe (more content not included)... [facility] 10-21-2023 Note PCP increased lasix to 40 mg daily, and I started aldactone at last visit. Renal function remains normal [facility] 10-21-2023 Note Patient is unsure of his medications, why he takes each med and sometimes not sure if he is taking them once or twice a day [facility] 10-21-2023 Note Hypertension is stil l elevated and leg swelling pt states is unchanged Resume norvasc 5 mg daily, continue atenolol, losartan bid, aldactone and lasix [facility] 10-21-2023 Note Patient here for 1 m [...] All other systems reviewed and are negative. [facility] 10-21-2023 Note [facility] CARDIOLOGY PROGR ESS NOTE [...] reason for each medication that he takes. [facility] 09-21-2023 Note Start aldactone and continue lasix 40 mg daily Repeat bmp 1 week [facility] 09-21-2023 Note Hypertension is unco ntrolled, and with leg swelling/edema asked pt to stop norvasc and start aldactone. Repeat labs in 1 week and to notify office for any concerns/ side effects- muscle cramps, tenderness. Pt does not check b/p at home [facility] 09-21-2023 Note Recommended smoking cessation- pt is not agreeable at this time [facility] 09-21-2023 Note Reports WILLAMS, noted w eight [...] week to check renal function and electrolytes. [facility] 09-21-2023 Note [facility]TP CARDIOLOGY PROGR ESS NOTE [...] and he may proceed with physical therapy. [facility] 09-21-2023 Note Patient here for car diac [...] All other systems reviewed and are negative. [facility] 08-26-2023 Note Cardiology Clinic No te Chief [...] time -Optimize med (more content not included)... [facility] 08-26-2023 Note New patient here to establish care. Ref from Daina Judge CNP for hypertension. She ordered stress test recently but he was unable to complete it due to inability to lie flat. He smokes 1.5 PPD and drinks about 5 beers daily. Denies chest pain, palpitations, and lightheadedness. Says his LE are always taut and swollen. [facility] 06-27-2023 Note HNO ID: [id number] Author: Kenyon Angel OD Service: ? Author Type: CUSTOMER SERVICE SECURITY OFFICER Type: Progress Notes Filed: 06/27/2023 1:37 PM [...] Angel, OD June 27, 2023 1:37 PM [facility] 06-06-2023 Note HNO ID: [id number] Author: Marquis Weaver OD Service: ? Author Type: CUSTOMER SERVICE SECURITY OFFICER Type: Progress Notes Filed: 06/06/2023 2:29 PM [...] Weaver, OD June 06, 2023 2:22 PM [facility] 06-06-2023 History of Present illness Narrative [...] 2023 2:22 PM documented in this encounter [facility] 10-15-2022 Hospital Discharge instructions Patient Education [...] 05/19/2018 Document Revised: 07/21/2018 Document Reviewed: 05/19/2018 [employer] Patient Education 2019 [employer]. Follow Up Care 10/05/2022 09:16:20 With:SELENA LEONG, Jf Reis, URL Address: [address] [place] [address] [place] [address]- When: Unknown [facility] 06-28-2022 Note Chief Complaint [...] [facility] [address], [place] [address] [id number] Additional Instructions: pt will f/u based on [...] Father. Immunizations Vaccine Date Status Comments SARSCoV2 mRNA(ednenlvgi-ihem-rnbkbz) vac 03/12/2022 Recorded 2022-06-28: TPV70 SARS-CoV-2 (COVID-19) mRNA BNT-162b2 vax 11/14/2020 Recorded 2022-06-28: TPV70 SARS-CoV-2 (COVID-19) mRNA BNT-162b2 vax 10/24/2020 Recorded 2022-06-28: TPV70 Lab Results Test Name Test Result Date/Time PSA, External 6.8 ng/mL 05/20/2022 08:26 EDT PSA, External 8.41 ng/mL 05/12/2022 08:25 EDT Diagnostic Results Test (more content not included)... [facility] Comment on above: Result Comment: Elec [...] urethra. Follow these instructions at home: Take ctxm-cul-zuxdtke and prescription medicines only as told by [...] 08/08/2006 Document Revised: 07/03/2019 Document Reviewed: 09/12/2017 [employer] Patient Education 2020 [employer]. Follow Up Care 05/27/2022 15:25:17 With:SELENA LEONG, Jf Reis, URL Address: [facility] [address], [place] [facility] [place] [address]- [phone] When: Unknown [facility] 06-16-2022 History of Present illness Narrative [...] Z96.1 -S/P PCIOL Left eye (02/07/17) Aim: [place] Horne by Dr. Ana farnsworth; He states that he is happy using OTC readers and declines appt for refraction with blueprint maker 3. Nuclear senile cataract of right eye - ICD9: 366.16, ICD10: H25.11 He is still happy enough with his vision and opts to follow up with Dr. Perez January 2023 for exam/cataract evaluation 4. History of retinal detachment - left eye - ICD9: V12.49, ICD10: Z86.69 history of retinal detachment repair OS 2007 in [place]. [place]. Call/come in for evaluation immediately if [...] Radha Perez MD documented in this encounter [facility] 03-01-2022 History of Present illness Narrative [...] 2022 4:08 PM documented in this encounter [facility] 02-26-2022 Miscellaneous Notes Called to let patient know we were able to get him an appointment in [place] at 4pm, left message. SENTHIL Ballesteros February 26, 2022 3:[address] Perez and she recommends that he be seen today. Please reach out to Patient to see if we can get appointment. SENTHIL Ballesteros February 26, 2022 2:57 PM documented in this encounter [facility] 02-17-2022 History of Present illness Narrative [...] h/o retinal detachment repair OS 2007 in [place]. Stable. Call/come in for evaluation immediately if [...] eye -S/P PCIOL Left eye (02/07/17) Aim: Van Horne by Dr. Perez Signs and symptoms of posterior capsular opacification were reviewed. Discussed possible eventual need for Yag laser posterior capsulotomy. Patient is still happy enough with vision, so declines Yag procedure for now. stable; he remains happy with his vision OS and with OTC readers If he wishes to get new glasses, previously offered an undilated refraction with our optometrists in [place]; he was told that vision with new glasses would not be perfect due to cataract OD; he also has mild PCO OS and Epiretinal membrane OS. He sees a nurse practitioner in [place] Offered for him to establish with a [facility] design supervisor in [place] Return to clinic in 12 months for [...] others. I have seen and examined Gianfranco Maritn. I have discussed the case and the management of this patient's care with the Resident/Fellow, if applicable. I also have reviewed and agree with the assessment and plan as stated above and agree with all of its relevant components. Radha Perez MD 02/17/22 documented in this encounter [facility] Evaluation + Plan note No data available for this section [facility] Evaluation note Diagnosis Nuclear senile cataract [...] by other means [facility] Diagnosis 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, left- Primary [...] both upper eyelids [facility] Diagnosis 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, left- Primary [...] stated as uncontrolled [facility] noteNo assessment information availableWilson [facility]tr Work Phone: Evaluation note* Diagnosis OPENED IN ERROR- Primary To allow closing an encounter opened in error (used in SmartSet) [facility] Diagnosis Type 2 diabetes mellitus [...] and sense organs [facility] Diagnosis Elevated prostate specific antigen (PSA)- Primary BPH without obstruction/lower urinary tract symptoms Hypertrophy of prostate without urinary obstruction and other lower urinary tract symptoms (LUTS) [facility] Diagnosis Elevated prostate specific antigen (PSA)- Primary APPOINTMENT CANCELLED Retinal hemorrhage, left eye- Primary Retinal hemorrhage History of retinal detachment Personal history of other disorders of nervous system and sense organs Epiretinal membrane (ERM) of left eye [facility] Retinal hemorrhage, left eye- Primary Retinal hemorrhage History of retinal detachment Personal history of other disorders of nervous system and sense organs Epiretinal membrane (ERM) of left eye Nuclear senile cataract of right eye Pseudophakia, left eye Lens replaced by other means History of YAG laser capsulotomy of lens, left [facility] Elevated prostate specific antigen (PSA)- Primary Prostate cancer (HCC) Malignant neoplasm of prostate Encounter for observation for other suspected diseases and conditions ruled out [facility] Capsulitis of metatarsophalangeal (MTP) joint of right foot- Primary Diabetes mellitus due to underlying condition with diabetic polyneuropathy, unspecified whether detention insulin use (CMS/HCC) Pain due to onychomycosis of toenails of both feet Venous insufficiency Unspecified venous (peripheral) insufficiency [facility] No data available for this section [facility] No data available for this section [facility] Medications Administered Section Active [...] 1 Drop, BOTH EYES, DIRECTED, Starting on 03/01/22 at 1500, Until Tu03/02/22 at 0259, Administer for applanation tonometry. In [...] Documents on File Type Date Recorded Patient Supervisor Cell Room Expl anation Advance Directive(s) 02/07/2017 9:56 AM [...] W/INTERP&POSTPROC DIFF WORK STATION Ale Hickman MD [address] [place] [address] [place] [id number] Referral ID Status Reason Start Date Expiration Date Visits Requested Visits Authorized [id number] New Request Auto-Generat ed Referral 4 06/30/2025 1 1 Specialty Diagnoses / Procedures Referred By Ever kaiser Referred To Contact MR IMAGING Diagnoses Encounter for observation for other suspected diseases and conditions ruled out Procedures MRI PROSTATE WO/W IVCON MRI PELVIS W/O & W/CONTRAST MATERIAL Ale Hickman MD [address] [place] [address] [place] [address] Referral ID Status Reason Start Date Expiration Date Visits Requested Visits Authorized [id number] New Request Auto-Generat ed Referral 06/30/2025 1 1 Additional Source Comments Source Comments (unrecognize d section and content) In the event this informatio n is protected by the Federal Confidentiality of Alcohol and Drug Abuse Patient Records regulations: The Federal rules restrict any use of the information to criminally investigate or prosecute any alcohol or drug abuse patient.[facility] the event this information is protected by the Federal Confidentiality of Alcohol and Drug Abuse Patient Records regulations: The Federal rules restrict any use of the information to criminally investigate or prosecute any alcohol or drug abuse patient.[facility] the event this information is protected by the Federal Confidentiality of Alcohol and Drug Abuse Patient Records regulations: The Federal rules restrict any use of the information to criminally investigate or prosecute any alcohol or drug abuse patient.[facility] the event this information is protected by the Federal Confidentiality of Alcohol and Drug Abuse Patient Records regulations: The Federal rules restrict any use of the information to criminally investigate or prosecute any alcohol or drug abuse patient.[facility] the event this information is protected by the Federal Confidentiality of Alcohol and Drug Abuse Patient Records regulations: The Federal rules restrict any use of the information to criminally investigate or prosecute any alcohol or drug abuse patient.[facility] the event this information is protected by the Federal Confidentiality of Alcohol and Drug Abuse Patient Records regulations: The Federal rules restrict any use of the information to criminally investigate or prosecute any alcohol or drug abuse patient.[facility] the event this information is protected by the Federal Confidentiality of Alcohol and Drug Abuse Patient Records regulations: The Federal rules restrict any use of the information to criminally investigate or prosecute any alcohol or drug abuse patient.[facility] the event this information is protected by the Federal Confidentiality of Alcohol and Drug Abuse Patient Records regulations: The Federal rules restrict any use of the information to criminally investigate or prosecute any alcohol or drug abuse patient.[facility] the event this information is protected by the Federal Confidentiality of Alcohol and Drug Abuse Patient Records regulations: The Federal rules restrict any use of the information to criminally investigate or prosecute any alcohol or drug abuse patient.[facility] the event this information is protected by the Federal Confidentiality of Alcohol and Drug Abuse Patient Records regulations: The Federal rules restrict any use of the information to criminally investigate or prosecute any alcohol or drug abuse patient.[facility] the event this information is protected by the Federal Confidentiality of Alcohol and Drug Abuse Patient Records regulations: The Federal rules restrict any use of the information to criminally investigate or prosecute any alcohol or drug abuse patient.[facility] the event this information is protected by the Federal Confidentiality of Alcohol and Drug Abuse Patient Records regulations: The Federal rules restrict any use of the information to criminally investigate or prosecute any alcohol or drug abuse patient.[facility] the event this information is protected by the Federal Confidentiality of Alcohol and Drug Abuse Patient Records regulations: The Federal rules restrict any use of the information to criminally investigate or prosecute any alcohol or drug abuse patient.[facility] the event this information is protected by the Federal Confidentiality of Alcohol and Drug Abuse Patient Records regulations: The Federal rules restrict any use of the information to criminally investigate or prosecute any alcohol or drug abuse patient.[facility] the event this information is protected by the Federal Confidentiality of Alcohol and Drug Abuse Patient Records regulations: The Federal rules restrict any use of the information to criminally investigate or prosecute any alcohol or drug abuse patient.[facility] Reason for Visit (unrecogniz ed section [...] Results Appointment Reason Comments PSA elevated PSA Reason Comments Toenail Care Non DM Nails Care Teams (unrecognized sec tion and content) Ship Rigger Relationship Specialty Start Date End Date Raul Sun MD PCP - General Family Practice 02/11/21 Ship Rigger Relationship Specialty Start Date End Date Raul Sun MD PCP - General Family Practice 02/11/21 Ship Rigger Relationship Specialty Start Date End Date Raul Sun MD PCP - General Family Practice 02/11/21 Ship Rigger Relationship Specialty Start Date End Date Raul Sun MD PCP - General Family Medicine 02/11/21 Team Status: Inactive Member Role Status Dates Jf Sanches MD Attending Provider Active AMMY Darling Primary Care Provider Active Team Status: Active Member Role Status Dates NILESH DarlingC Primary Care Provider Active Ship Rigger Relationship Specialty Start Date End Date Raul Sun MD PCP - General Family Medicine 02/11/21 Ship Rigger Relationship Specialty Start Date End Date Raul Sun MD PCP - General Family Medicine 02/11/21 Ship Rigger Relationship Specialty Start Date End Date Raul Sun MD PCP - General Family Medicine 02/11/21 Daina Judge CNP [address] [place] [address] Referring Internal Medicine 10/15/23 Ship Rigger Relationship Specialty Start Date End Date Raul Sun MD PCP - General Family Medicine 02/11/21 Daina Judge CNP [address] [place] [address] Referring Internal Medicine 10/15/23 Ship Rigger Relationship Specialty Start Date End Date Raul Sun MD PCP - General Family Medicine 02/11/21 Daina Judge, HIRO [address] [place] [address] Referring Internal Medicine 10/15/23 Ship Rigger Relationship Specialty Start Date End Date Raul Sun MD PCP - General Family Medicine 02/11/21 Daina Judge, HIRO [address] [place] [address] Referring Internal Medicine 10/15/23 Ship Rigger Relationship Specialty Start Date End Date Raul Sun MD PCP - General Family Medicine 02/11/21 Daina Judge, HIRO [address] [place] [address] Referring Internal Medicine 10/15/23 Ship Rigger Relationship Specialty Start Date End Date Raul Sun MD PCP - General Family Medicine 02/11/21 Daina Judge, HIRO [address] [place] [address] Referring Internal Medicine 10/15/23 Ship Rigger Relationship Specialty Start Date End Date Raul Sun MD PCP - General Family Medicine 02/11/21 Daina Judge, SYSTEM SAFETY ENGINEER [address] [place] [address] Referring Internal Medicine 10/15/23 Goals (unrecognized section and content) Goals may be documented in a n alternate section (unrecognized sect ion and content) No Status Records FoundNo Status Records FoundNo Status Records FoundNo Status Records FoundNo Status Records FoundNo Status Records FoundNo Status Records Found INFORMATION SOURCE (unrecogn ized section and content) DATE CREATED AUTHOR 07/29/2022 [facility] DATE CREATED AUTHOR AUTHOR'S ORGANIZ ATION 10/28/2022 [facility] DATE CREATED AUTHOR AUTHOR'S ORGANIZ ATION 12/01/2022 [facility] DATE CREATED AUTHOR AUTHOR'S ORGANIZ ATION 01/01/2024 [facility] DATE CREATED AUTHOR AUTHOR'S ORGANIZ ATION 02/11/2024 [facility] DATE CREATED AUTHOR AUTHOR'S ORGANIZ ATION 06/06/2024 [facility] DATE CREATED AUTHOR AUTHOR'S ORGANIZ ATION 07/08/2024 [facility] Special[facility] EPIC FOR RECORDS PERTAINING TO PATIENTS WHO ARE [...] BE BASED ON THE PRIMARY CLINICAL RECORDS. [facility] [employer] provides no warranty or guarantee of the accuracy or completeness of information in this document.
[2024-08-10 15:33] LABS: Alanine Aminotransferase 26 U/L (16-63); Albumin Level 3.6 g/dL (3.4-5.0); Alkaline Phosphatase 93 U/L (46-116); Aspartate Amino Transferase 24 U/L (15-37); BUN Creatinine Ratio 7.2; Bilirubin Total 0.5 mg/dL (0.2-1.0); Calcium 8.6 mg/dL (8.5-10.1); Carbon Dioxide 25.8 mmol/L (21.0-32.0); Estimated GFR (African America >60 (>=60 mL/min/1.73m^2); Estimated GFR (Non-African Ame >60 (>=60 mL/min/1.73m^2); Globulin 3.6 g/dL; Glucose 135 mg/dL (74-106); Total Protein 7.2 g/dL (6.4-8.2)
[2024-08-10 15:44] LABS: Anion Gap 13.1; Chloride 97 mmol/L (98-107); Sodium 131 mmol/L (136-145)
[2024-08-10 15:47] LABS: Potassium 4.9 mmol/L (3.5-5.1)
== END 2024-08-10 14:27 | disposition home or self-care (01) ==
LOC: LAB 14:27
PROVIDERS: PCP Nurse Practitioner Family; Visit Provider Nurse Practitioner Family
DX: R79.9 Abnormal finding of blood chemistry, unspecified (principal)
CPT/HCPCS: 36415; 80053

== ENCOUNTER 2024-10-03 14:14 | Outpatient (OUT) | payer OTHER, SELFPAY ==
--- OUTSIDE RECORDS SUMMARY | 2024-10-03 14:30 | XMS_ITS | CCD ---
Author Organization [facility] Care Team Providers Care Claims Administrator Name Role Phone Raul Sun MD Primary Care Provider DIANA JUDGE Primary Care Physician MD Jf Sanches Attending Provider [phone] AMMY Judge Primary Care Provider Daina Judge [...] Unavailable Raul Sun MD Primary Care Provider [phone] Daina Judge CNP Unavailable [phone] Raul Sun MD Primary Care Provider [phone] Reanna LEONG, Trevor Kruger Attending Unavailable Reanna LEONG, Trevor Kruger Attending Unavailable RAUL SUN Primary Care Unavailable ALE HICKMAN Attending Unavailable RAUL SUN Primary Care Unavailable KENYON ANGEL Attending Unavailable RAUL SUN Primary Care Unavailable MARQUIS WEAVER Attending Unavaila ble ALE HICKMAN Attending Unavailable RAUL SUN Primary Care Unavailable MARQUIS WEAVER Attending Unavaila ble RAUL SUN Primary Care Unavailable ALE HICKMAN Attending Unavailable RAUL SUN Primary Care Unavailable RAUL SUN Primary Care Unavailable KAIA EGAN Attending Unavailable JUAN MANUEL FORD Attending Unavailable ROGERIO LANE Attending Unavailable JUAN MANUEL FORD Attending Unavailable Unavailable Primary Care Provider UnavailBRANDON Kirby Attending Unavailable HILDA HA Attending Unavailable HILDA HA Attending Unavailable Allergies Allergy Classification Reported Allergen(s) Allergy Type Date of Onset Reaction(s) Facility (17 sources) Penicillins; Translations: [PENICILLINS] Drug Allergy [address] [facility] (5 sources) Penicillin; Translations: [penicillin] Drug Allergy 2 Unknown skin reaction [facility] (1 source) Penicillins Drug allergy (disorder) 2 [facility] Repository (4 sources) amLODIPine; Translations: [AMLODIPINE] Drug Allergy 4 Swelling [facility] Work Phone: (3 sources) Penicillin G Drug Allergy 3 Unknown [facility] (3 sources) Penicillins Drug Allergy 7 Other, Rash, Unknown [facility] Medications Current Medications Medication Drug Class(es) Dates Sig (Normalized) Sig (Original) [id number] 200 actuat albuterol 0.09 mg/actuat metered dose inhaler (13 sources) beta2-Adrenergic Agonist Start: 04-17-2023 albuterol HFA [...] mouth. clobetasol propionate 0.5 mg/ml topical cream (3 sources) Corticosteroid Start: 01-26-20 22 clobetasol (Temovate) [...] Comment on above: Take 1 tablet by [facility] every 12 hours. doxycycline monohydrate 50 mg oral capsule (18 sources) Tetracycline-class Drug Start: 01-26-20 24 take 1 capsule by mouth once daily doxycycline (Monodox) 50 MG capsule Indications: Other rosacea Take 1 capsule, by mouth, once daily, 30 days 30 capsule 11 01/26/2024 Active Start: 01-25-2022 take 1 capsule by mo [facility] once daily doxycycline (VIBRAMYCIN) 50 mg capsule [...] mouth. naltrexone hydrochloride 50 mg oral tablet (18 sources) Opioid Antagonist Start: 11-03-19 19 naltrexone [...] Problem Classification Problem Date Documented Date Episodic/Chronic Alcohol-related disorders (2 sources) Alcohol abuse, uncomplicated; Translations: [Alcohol abuse, uncomplicated] Onset: 5 Chronic Anxiety disorders (3 sources) Anxiety disorder 08-08-2019 [...] Other eye disorders (2 sources) History of bfczrrv-fnhgqoao-mpvqoa (YAG) laser capsulotomy of lens; Translations: [Cataract extraction status, left eye] 06-06-2023 Episodic Other inflammatory condition of skin (3 sources) Rosacea; Translations: [Other rosacea] Onset: 3 01-25-2023 Chronic Other lower respiratory disease (2 sources) Other forms of dyspnea; Translations: [Other forms of dyspnea] Onset: 5 Episodic Residual codes; unclassified (2 sources) Localized edema; Translations: [Localized edema] Onset: 4 Episodic Residual codes; unclassified (2 sources) Tobacco use; Translations: [Tobacco use] Onset: 5 Episodic Retinal detachments; defects; vascular occlusion; and [...] 11-10-2016 11-10-2016 Episodic Other nervous system disorders (20 sources) [...] and regimen due to unspecified reason] Onset: 09-19-2024 Results Test Name Value Interpretation Reference Range Facility Office Visiton 09-19-2024 Follow-up visit [id number] Pan Martin 1950 M Date Provider Department Center 09/19/2024 [id number], ADAM JARAD [facility] Family History Problem Relation Age of Onset Coronary artery disease Father Stroke Father Family Status - Relation Status Age at Father Level of Service:[address]27 [place] OFFICE/OUTPATIENT ESTABLISHED MOD MDM 30 MIN Normal [facility] Km 05-31-2024 [place] Telephone (UROLLN) -- GIANFRANCO MARTIN ([id number]) 1950 M Date Time Provider Department 05/31/24 ALE HICKMAN During your visit today, we recorded the following information about you: BonnieNegrita moran 05/31/2024 3:56 PM Signed Jovita Glover [facility] Schedulers Pool Please schedule patient for an MRI Prostate and then for an OV to follow per request! LVM for pt to call back and schedule MRI and follow up. Paty Blanchard 06/01/2024 11:10 AM Signed Julius Hickman- Spoke to patient Told Patient I was calling to get him scheduled for PSA and MRI with a follow up to see you. 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 Pt explained his Urology provider, Dr Barroso at [facility], scheduled him an MRI and he was [...] - Rash Date Reviewed: 12/27/2023 Reviewed by: Loudenslager, Marquis S, OD - Fully Assessed Prescriptions as of [...] Encounter Status:Closed by PATY LACEY on 06/01/24 [facility] CNPNon 05-25-2024 CNP Telephone (UROLLN) -- GIANFRANCO MARTIN ([id number]) 1950 M Date Time Provider Department 05/25/24 ALE HICKMAN During your visit today, we recorded the following information about you: Ale Hickman MD 05/25/2024 7:18 AM Signed Please notify patient his PSA is very high and he is at high risk of having prostate cancer. he needs to schedule his prostate biopsy unless he had it done else where PSA from [facility] on 05-18-24 = 16.17 (normal values 0-4) Can be done in office under local or in [facility] under [facility] MD Sarthak Pham Nicole, LPN 05/25/2024 9:05 AM Signed Call placed to patient in regards to message below. LVMM for patient to return call back to [phone], in regards to his recent lab results and orders on how Dr. Hickman would like to proceed. Niya De León LPN 05/30/2024 9:07 AM Signed Call placed to patient in regards to message below. LVMM for patient to return call to [phone] in regards to lab results and how [...] Status:Closed by ALE HICKMAN on 05/25/24 Normal [facility] Office Visiton 02-09-2024 Follow-up visit [id number] Pan Martin 1950 M Date Provider Department Center 02/09/2024 120-DILCIA, HILDA BH CARD [facility] Family History Problem Relation Age of Onset Coronary artery disease Father Stroke Father Family Status - Relation Status Age at Father Level of Service:[address]17 [place] OFFICE/OUTPATIENT ESTABLISHED LOW MDM 20 MIN Normal [facility] OCT MACULA CIRRUS OU (BOTH E YES)on 12-27-2023 [facility] Radiology Study observation (narrative) 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 Can you try reaching him again [...] Encounter Status:Closed by ALE HICKMAN on 12/08/23 [facility] Telephone (UROLLN) -- GIANFRANCO MARTIN ([id number]) 1950 M Date Time Provider Department 12/08/23 ALE HICKMAN During your visit today, we recorded the following information about you: Ale Hickman MD 12/13/2023 5:41 PM Signed Please call again and update me Please notify patient that his PSA is rising from 9 to 10.6 He needs prostate bx Can be done in office under local anesthesia or in ASC under MAC ( [place] sleep) He can come to leaf size picker flyer on prostate bx To schedule [...] Status:Closed by ALE HICKMAN on 12/13/23 Normal [facility] PSA SerPl-mCncon 11-17-2023 Prostate specific Ag [Mass/Vol] 10.58 ng/mL High <2.60 [facility] Comment on above: Order Comment: Speci men Type: BLOOD SPECIMEN Ordering Facility: [facility] Address: [address] [place] [address] Result Comment: Tomas luong PSA test methodology used is the Electrochemiluminescence Immunoassay by Roberto [employer]. Total PSA values by differing methodologies cannot [...] 2003,349:335-42. Performed By: #### 2 [id number] #### [facility] CLIA [id number] [address] [place], [place] [address] [address] [place] CNOVon 10-24-2023 CNOV Office Visit (UROLLN ) -- GIANFRANCO MARTIN ([id number]) 1950 M Date Time Provider Department 10/24/23 2:40 PM ALE HICKMAN During your visit today, we recorded the following information about you: Pulse Blood pressure Weight 79/minute 157/66 97.5 kg Marina Babcockil 10/24/2023 3:09 [place] [address] 72 year old male with nuclear sclerotic [...] 2007 Retinal detachment, left eye, repaired in [place], [place] PAST SURGICAL HISTORY OF hernia sx, [...] nontender, w/o nodules. Good anal sphincter tone. [facility] SYMPTOMS SCORE. Date 10/24/2023 1. [...] Moderate By (more content not included)... Normal [facility] 37on 10-21-2023 37 Resume taking norvasc/Amlodipine 5 mg daily for blood pressure Normal [facility] Office Visiton 10-21-2023 Follow-up visit [id number] Pan Martin 1950 M Date Provider Department Center 10/21/2023 120-HILDA HA CARD [facility] Family History Problem Relation Age of Onset Coronary artery disease Father Stroke Father Family Status - Relation Status Age at Father Level of Service:[address] [place] OFFICE/OUTPATIENT ESTABLISHED MOD MDM 30 MIN Normal [facility] 36on 10-06-2023 36 JEANIE Bean MA Labs look good- no concerns= kidney function normal and electrolytes normal Regarding labs done on 10/04/2023 Patient made aware. Normal [facility] Patient Letter FTon 2022 Patient Letter [facility] (Inserted Image. Prema ble to display) November 30, 2022 [place] [address] GIANFRANCO MARTIN 1950 Dear Gianfranco Martin, [facility] [...] Jf Sanches M.D., F.A.C.S. [facility] [address] [place] [address] [place], [place] [address] , OPTION #3 SENT REGULAR/CERTIFIED MAIL [facility] Coding Summary.on 10-27-2022 Coding Summary. CD:[id number] Gh0bWw +PGhlYWQ+AZ2RPPSxU20iwYTei A3zY3ZQATzVKbpdNZNFTAvISzP mnuNnDM2vuFDpKLIp IC8+ZJ9hYUIoMpmlyVHwk9K3yE Z4V48huq0hPIklwIK2XIKjTtSb sjxeo7eeoWx9KEndQkbxUlLa THOlhO20VTB2iG69Ay71wNIakU Sxx6cmiUi1StJdMGVgCSL7qWbp NFewd6NnCTQiN51yyVFji8Z5 IXAagCtaaAXvGlTscAV1eF2tGF bojaino6efcekoNqo1xv88xPQh t0K9mYT5R7FoeqN8RXFpzFNv SlabpMUFfR3drvuki3jajvffNa DcRUHdVBk9PGp8DLCymNikLnMt LF06DZF9YMNjapSlR2RdUXGl xSdxFcM8t7P6Nz7IV9VZSloqQ9 VNTUFSWTwvdGQ+FI34xb10N0Zg CxudFab5ZFFeSPT7rWO2qK4d JGFnRWnaw7G8xSZ4R6FsklIkzk 5qw6uwSNIdYBngQ67naAYtv1H5 PBBlwHR5UAQyyPdpYyItgT78 Oyc+UWOgfTwqh5WlYskpu1zsv7 xpkTg6QrsgVPQwxaQmhGxdHYL9 m7KwLw5aCRAbuRL5dOY9jR3f NdPuToD5CRozZ375TrMnwWWqCj lcI19jS5MtrAA+QCJgMvq8KOUt hXulNY4oG8IdGMEwnxdhvMUt dCkjOV1dHRCglhukPDZyeP4hTS AtX2q1BpEjLyJ3CXkaI6HlTLTj slsfFi32dP7yBsWtGuR3MSom S2GdgyE3JACpvFMjTYqvEVG1L0 3od8Q0CEAcFOFiHFF8qDD5eY1u bGlnbjogbGVmdDsgdmVydGlj VNpnLKwsJ983CQUwmUgpZvQvDB luZyBEYXRlOiAgMDMvMDgvMjAy MzwvdGQ+TWMwHOI1bHrvCIDq hONvJQrcFw6ivCoxmGpiUK6vPK YsutxwSNFxvQ7lLAGypKZtnWhy IZ9wBQMnuarxw065LwXgIVF8 YCGygNXmO8BmlT2xMqBaCLHjYP JoY0AmmZCgWDcvH989PZjeIuD6 KHJdzjWlO2MhCHPrjFfeXkT5 b9K6Mf4Qd5AqnniqQ9FuiZGdXg JjGlfeUTc3D7AcPvjvbQX+PC90 TIUmTD20SZa6DRG4gErpZSje QOXeP6TvlL3pIwXuPAKlNLKaGt c+PHRhYmxlIHdpZHRoPScxMDAl KuHlvYbaFP6mOj9tHEXcIDEj gQpokKEaApVhz6gjPQTuKTuyTN 6vmDmpV8JufSQ5MOPyc6f9Wi00 X96fW5BrjKX+XFHpuVW3kPS1 mU2uAlVqNfG2WYmbW906YyOatO PgHmnmv4vxg6bqdIm8DsZ6OLIt zjMisTaqXVP8r6OdOf00N65w IHdpZHRoPSIxNSUiIHZhbGlnbj 5dvS6eIh5+REHnaLV3aAJ4pS5l FlScIoK9PVebH323NyJdpTOq Ixxbp8ysi3xtsYu9VfHtOFUzdk VxoOoxOLZ7n2TsNf65Z4YuwZfo x4ApHxq8vq82fWFzc8X2kCH3 G3RuYQLsvvoesJDjkZjwDM6nWI IocykyVFQvfX9oMZLwB0f6LuIy YzE4UXyhK2RqenD4ONQfcSMz RQUnsGTCmS6amvlhr0vluyxgWc BjHUBkAGi0IPp7HBScpAfnZlMs EBG7DsE1PKN5rKQziH1ltYqn sloahX7vFgc+EEJ0rWFmqDRONV 1lOjwvdGQ+YDJjCFF1fNhcAFip QACboZ2iSIVoZ1g9MwOzErW6 DPbyS4OfsaQ8NWQobQSfGNFzmZ IKoX2bvqyat3ulngsbCvVnJMAj WJh9KDe9IHKsgXzjFhNwCLU7 CkH2OFC6qCTanM5hyPxhgqohkS 9wOyc+DaldoKtwORK2HQl4Y5Fb Kwc9FWDvuUpcQB4emNFlSBth Jk6odKuamUstUN5tCGMkkvkrz0 71BvXry8lnJFNloCEyRFwrTFD9 I59rh2I4NXJcUDJlGVU5cIT9 gQ2tdDjxsajdbHTgrRprjyPlxY owVPjjCJqvF242NDZdvThfDpOu URj1A3GrMbi5LBZpqXkwEG4t aWRaLHymRn0vgXodkJpnZS9xDO Vxvlbrt335ZqYtg5yyYQPdjJYk OAciWMX6M51hp8O1WBNfMQJj CWP6jVR8mY4gtMqzkeavmDVoiY pczqZcuEyrGCcmQFtyZ592LPLy vRrxPjQxrVm1P0XlLsv1SKYn rGpjDG5wbPReXIcjDd6xwJvkoB sbXI3qRMXfrvkok076OlDbe9ij DJMiqGIiJKwuURN2X22fd4N1 LOTfOTCzIIS9dBR8cY3vgXaylk ogbGVmdDsgdmVydGljYWwtYWxp R178HZQgcBzpUiQexCarcyVc POdsXFj7A6UvSztdxAU+PC90YW GkNK73dQNcfZLrr0ejwJi3OkFa YMIjBSZ1lLcuDFdel2ZzKXLw D00tyVXaa3T8UQYnuGkndSMxWx MywHJ9yK6fSRoynoity6emnzvu Yyzqk3ljyd02pK58H67qGHih QDKfOPZwKXAvJDIwjDsert5guK 9wIi8+LIYbfAD7oBA7bW7jAVIq IsO3MMjtN065TpJqqUOvItnz e5dwt4kjuOm1LuG6FAWfnmDspI dcIXV8c2KpKc09O33aKNceTXUd YMGiYOIcWKJbuNalmf7neW5h Ii8+LZHnxJY8xQI5gF6kVkGeAa Q3DGevX140ZpVhnBEuInsrP43m A7XarNA+ZUOxUru3CZPovSst GH3saQVzTJhpJh0eXTD1VlAdJm QtPAvtA3ZwHJGindbfacnvbYK7 LWUzKADliY47Zh6ibSbnCRXv eYPVdC0fgnkel3qgzipgJiAwMY HfCLv9TPz1WEWluEcqRlJtBCT1 AmW9LIY9aGPsuY5kuFomigaw qX7pF9XgZKCwltmjIb76mV9bZg CkXcS1ERshJol+UFVMTEFOTywg IxmMX9xWAbiouYD+PHRkIHN0 bTbrQOxpQULhoK9qLEPwL0x4Tr SyYsA3LVjwR9EbBDEgqciiYz86 hN9jSbVcCsY1PPalG2EjhoW4 XVJyrCDcYAwnIUF7W79ir7Y2LS ZgNNJfVCI3oJY4vG2yuZbgqtwk bGVmdDsgdmVydGljYWwtYWxp H998WLJndSirUrN3IzV1ImU1AS U5N7RcVqq9SNLsiAkuVD4zeSKc RFtwPk5smAtyqKmnRL9cSOLz osvfMUHdjZ7xJQRdfQGonNtfPS 1xRRGwrzqjp604FgDsUBE0ABMp iLVwN2PyyC5jQeOkSIIxCACn R1QxwUPvBNreA233TDvuHlI4UA GulhPtN5NiOJUqmNqeCiD5z0J4 Fy54McJUCTQloqxxlPG+PHRk AVG2kBjoMPnbUAAzgK1pOSJvW1 t8HpVcEyB9RXdyQ6LpLXUogydq Zl86qR4aDjVoGuV1FIigK5Kn euW3CLFzpUGuTTgzHMD0P87gj8 N6VFZzPUKsFNY6pMC4aK7jiZcq bjogbGVmdDsgdmVydGljYWwt COvgQ835WAJsgTjiVe0xiIX9Y4 TxFta3VPDqtHqnIE3phKFnOScl Qv4mtNopvXrcQQ5gOXMvvakf ICMttG6bHZPqlECozZzcPN4qKG Wqznbuf638PbSdNRN0IYHgsSJd X1HmnE7uKtWlVDTyESJhU9Do rBIoJZmeT995OPxlIbD9WPCntb RbW9ZeEMVyzEusPfU2i0S9Zk9K NYKkXSLrvVRtXkP5Z5EjFocd dHI+DP90DZCeHE19yKXwbOTvg1 jcoFg6PfJjGZJmATP8zKqhQTad e5MhBPUxM64ugARjc7O9VUJs xUsibZBmVoCjhGZ4sW7xZHlbqp ybb7wjdygzUvvuw6yiax83dS74 C60iPKakPSUtFMKbPKVqRHKw sKkexm6biD6mFb7+QICmpWW2mD M0mF8tIzSmQsR7GRuwB214WjCl vEBoUiitq9abu3podYu0BcOd VBKxldAgaKpjITM0o0LgVx90V6 9sIHdpZHRoPSIyMCUiIHZhbGln wu5kdX4pWf9+GV8sd3mqil68 gJ22dRC+QUWyBDL8jUeoUSrlCD VcbN6kSVopEsE1SJXeTiOmbD86 xJHoLUhwQa8gdGcphWzbCQ9e YYAixrcil400QbFgm3isRVDpkG WcFVkcYVV7A60qh6Q8AEIrBZKo GLE1hRE7nJ8lsVvhkcyebYHx zBivkuYroEwjKFcgIFatF328QS QjeZnnGqCzoWTlR5veoqROGQ9e OjwvdGQ+ZEZoEOH9uJppHQlp HCIlaQ8dULJrU4e9DvBsWuC6JT etJ8EttqN7GEHixDFnIYPgyCHG zF0qyhdke1uerndkPdYnOVCn CBv9OQu1BFEjhNufSvTjYDY3Rw J5NXT2hDNcpR0beYmhtntndY4f Oyc+RklOOjwvdGQ+PHRkIHN0 uNmhJCduOUJvgK1rISHlP8b2Ck IwFrN0EHqqM1MmtwZ7CABlgIWo CRJbqYDKwU0jinyrk6dnlkfg LxKkKPHvESo9UJk9YWJcdYrfXf AjOYH2ElQ6QUE2yOEzvE1xfOlt xjcnoN8zIse+TVJOOjwvdGQ+ SILgVGB6rDskQKmqLIPtoA9bWJ LwU3s0SeRwAcA9VXckZ9ItdyN2 ESQznWHbCBUjbCYHcZ9wlafu b1slkqphSfTmKKFxTTd9IZu7XZ KhmYywBhZqZPH5VeQ9VKJ5pABe dE1kgBsoykeefT4xNci+UGF5 IOY7DL35WX76Y5UsQgjrrVHjcZ U+PHRhYmxlIHdpZHRoPScxMDAl UxZwyMzeRE6zWy6yXUHlLRSt bGxh (more content not included)... Normal [facility] Lab Reportson 10-27-2022 Lab Reports [id number]#[id number]:127 Normal [facility] Ambulatory Visit Summaryon 0 10-15-2022 Ambulatory Visit Summary GIANFRANOC MARTIN :1950 Visit Date:10/15/2022 Ambulatory Visit Instructions Your Diagnosis Elevated PSA Benign prostatic hyperplasia (BPH) with post-void dribbling Tests Performed Urnls Dip Stick Auto w/o Microscopy POC 24876 Your Care Team Attending Physician - SELENA [...] with SELENA LEONG, STEFANI Seo When: Where: [address] [place] [address]- Medications What When Instructions Unchanged amlodipine (amLODIPine [...] Urnls Dip Stick Auto w/o Microscopy POC 25192 (10/15/2022) Bilirubin Urine Dipstick - Negative Blood Urine Dipstick - Negative Glucose Urine Dipstick - Negative Ketones Urine Dipstick - Negative Leukocytes Urine Dipstick - Negative Nitrite Urine Dipstick - Negative Protein Urine Dipstick - Negative Specific [place] Urine Dipstick - 1.010 Urine Appearance Urine [...] of these risk factors: ? Being of -Sammarinese descent. ? Having a family history of prostate cancer. ? If you are age 55?69, talk with your health care provider about (more content not included)... Normal [facility] Patient Educationon 10-15-19 23 Patient Education Oncology [...] of these risk factors: ? Being of -[place]ammarinese descent. ? Having a family history of [...] Are older than age 55. ? Are -Sammarinese. ? Have a father, brother, or uncle [...] Contact Information SELENA LEONG, Jf Reis, URL [facility] [place] [address]- Additional Instructions: PSA today - await results [...] Father. Immunizations Vaccine Date Status Comments SARSCoV2 mRNA(lgxmxzzqt-kmog-rbrdkf ) vac 03/12/2022 Recorded 2022-06-28: TPV70 SARS-CoV-2 [...] Dipstick: Negativ (more content not included)... Normal [facility] Comment on above: Result Comment: Elec tronically Signed By: Jf SANCHES MD\.br\Date and Time Signed: 10/15/22 11:23 EST\.br\Electronically Co-Signed By: Dori Wynne\.br\Date and Time Co-Signed: 10/15/22 11:19 EST\.br\Electronically Co-Signed By: Dori Wynne\.br\Date and Time Co-Signed: 10/15/22 11:21 EST Creatinine (Bld) [Mass/Vol]O rdered By: Jf Sanches on 07-14-2022 Creatinine [Mass/Vol] 0.8 mg/dL 0.6-1.3 [facility] Comment on above: ER/ESD physician is notified/shown all ISTAT results.Critical values may be confirmed by laboratory testing ifdeemed necessary by ER attending doctor. ISTAT XRay CREon 07-14-2022 Creatinine [Mass/Vol] 0.8 mg/dL Normal 0.6-1.3 [facility] Comment on above: Result Comment: ER/E [place] physician is notified/shown all ISTAT results. Critical values may be confirmed by laboratory testing if deemed necessary by ER attending doctor. Performed By: #### I SCRE #### [facility] [address] Point of Care testing , ISTAT GFR ( > 60 Normal [facility] Comment on above: Result Comment: GFR estimated reference range: According to KDOQI guidelines, <60 ml/min/1.73m2 is sufficient to diagnose a patient with chronic kidney disease. PERFORMED BY: [place] [address] PATHOLOGIST [employer] MADELYN LAIRD M.D. Performed By: #### I SCRE #### [facility] [address] Point of Care testing , ISTAT GFR (Non- Am > 60 Normal [facility] Comment on above: Performed By: #### I SCRE #### [facility] [address] Point of Care testing , No Panel InformationOrdered By: Jf Sanches on 07-14-2022 POC Estimated GFR > 60 [facility] Comment on above: GFR estimated refere nce range: According to KDOQI guidelines, <60 ml/min/1.73m2 is sufficient to diagnose a patient with chronic kidney disease. POC Estimated GFR Non- Amer > 60 [facility] Pre-Certification Formon Pre-Certification Form [id number]#[id number]:127 Normal [facility] Lab Reportson 07-05-2022 Lab Reports [id number]:127 Normal [facility] Physician Referralon 022 Physician Referral [id number]:127 Normal [facility] Ambulatory Visit Summaryon 1 08-28-2021 Ambulatory Visit [...] SELENA LEONG, Jf Reis, STEFANI When: Where: [facility] [address] , [place] [address]- [phone] Medications What When Instructions Unchanged amlodipine (amLODIPine [...] prostate gland (more content not included)... Normal [facility] Historical Records Officeon 06-28-2022 Historical Records Office [id number]:127 Normal [facility] Patient Educationon 06-28-20 Patient Education Urology Benign [...] Follow these instructions at home: ? Take dgtz-pne-uzadrdb and prescription medicines only as told by [...] You d (more content not included)... Normal [facility] PSA, FREE AND TOTAL RATIOon 05-21-2022 % Free PSA 7.1 % Normal [facility] Comment on above: Result Comment: [...] men. Performed By: #### P SAFREE #### [facility] [address] [place] [address] Dr. Zaira Benoit Prostate specific Ag [Mass/Vol] 6.8 ng/mL Critically high 0.0-4.0 [facility] Comment on above: Result Comment: Bryant woodruff ECLIA methodology. . According to the [place] [employer], Serum PSA should decrease and [...] disease. Performed By: #### P SAFREE #### [facility] [address] [address] [address] Zaira Benoit PSA, Free 0.48 ng/mL Normal N/A [facility] Comment on above: Result Comment: Bryant woodruff ECLIA methodology. Performed By: #### P SAFREE #### [facility] [address] [address] [address] Zaira Benoit INSULINon 05-13-2022 Insulin 7.8 uIU/mL Normal 2.6-24.9 [facility] Comment on above: Performed By: #### I NSULIN #### [facility] [address] [place] [address] Dr. Zaira Benoit CBC AUTO DIFFon 05-12-2022 BASO # 0.1 103/ul Normal 0.0-0.1 [facility] Comment on above: Performed By: #### C BC #### [facility] [address] [place] [address] Dr. Zaira Benoit Basophils/100 WBC (Bld) 0.9 % Normal 0.2-2.0 [facility] Comment on above: Performed By: #### C BC #### [facility] [address] [place] [address] Dr. Zaira Benoit EO # 0.2 103/ul Normal 0.0-0.7 [facility] Comment on above: Performed By: #### C BC #### [facility] [address] [place] [address] Dr. Zaira Benoit Eosinophils/100 WBC (Bld) 2.1 % Normal 0.9-7.0 [facility] Comment on above: Performed By: #### C BC #### [facility] [address] [place] [address] Dr. Zaira Benoit Erythrocyte distribution width (RBC) [Ratio] 13.2 % Normal 11.0-15.0 [facility] Comment on above: Performed By: #### C BC #### [facility] [address] [place] [address] Dr. aZira Benoit Hematocrit (Bld) [Volume fraction] 46.6 % Normal 42.0-54.0 [facility] Comment on above: Performed By: #### C BC #### [facility] [address] [place] [address] Dr. Zaira Benoit Hemoglobin (Bld) [Mass/Vol] 15.5 g/dL Normal 14.0-18.0 [facility] Comment on above: Performed By: #### C BC #### [facility] [address] [place] [address] Dr. Zaira Benoit IG # 0.02 10e3/ul Normal 0.00-0.03 [facility] Comment on above: Performed By: #### C BC #### [facility] [address] [place] [address] Dr. Zaira Benoit IG % 0.3 % Normal 0.0-0.5 [facility] Comment on above: Performed By: #### C BC #### [facility] [address] [place] [address] Dr. Zaira Benoit LYMPH # 2.6 103/ul Normal 1.2-3.8 [facility] Comment on above: Performed By: #### C BC #### [facility] [address] [place] [address] Dr. Zaira Benoit Lymphocytes/100 WBC (Bld) 36.9 % Normal 20.5-60.0 [facility] Comment on above: Performed By: #### C BC #### [facility] [address] [place] [address] Dr. Zaira Benoit MANUAL DIFF REQ NO Normal [facility] Comment on above: Performed By: #### C BC #### [facility] [address] [place] [address] Dr. Zaira Benoit MCH (RBC) [Entitic mass] 33.2 pg Normal 25.9-34.0 [facility] Comment on above: Performed By: #### C BC #### [facility] [address] [place] [address] Dr. Zaira Benoit MCHC (RBC) [Mass/Vol] 33.3 g/dL Normal 29.9-35.2 [facility] Comment on above: Performed By: #### C BC #### [facility] [address] [place] [address] Dr. Zaira Benoit MCV (RBC) [Entitic vol] 99.8 fL Critically high 80.0-94.0 [facility] Comment on above: Performed By: #### C BC #### [facility] [address] [place] [address] Dr. Zaira Benoit MONO # 0.6 103/ul Normal 0.3-0.8 [facility] Comment on above: Performed By: #### C BC #### [facility] [address] [place] [address] Dr. Zaira Benoit Monocytes/100 WBC (Bld) 9.1 % Normal 1.7-12.0 [facility] Comment on above: Performed By: #### C BC #### [facility] [address] [place] [address] Dr. Zaira Benoit NEUT # 3.6 103/ul Normal 1.4-6.5 [facility] Comment on above: Performed By: #### C BC #### [facility] [address] [place] [address] Dr. Zaira Benoit Neutrophils/100 WBC (Bld) 50.7 % Normal 43.0-75.0 [facility] Comment on above: Performed By: #### C BC #### [facility] [address] [place] [address] Dr. Zaira Benoit Platelet mean volume (Bld) [Entitic vol] 9.3 fL Critically low 9.5-13.5 [facility] Comment on above: Performed By: #### C BC #### [facility] [address] [place] [address] Dr. Zaira Benoit PLT 191 103/ul Normal 150-450 [facility] Comment on above: Performed By: #### C BC #### [facility] [address] [place] [address] Dr. Zaira Benoit RBC 4.67 106/ul Critically low 4.70-6.10 [facility] Comment on above: Performed By: #### C BC #### [facility] [address] [place] [address] Dr. Zaira Benoit WBC 7.0 103/ul Normal 4.0-11.0 [facility] Comment on above: Performed By: #### C BC #### [facility] [address] [place] [address] Dr. Zaira Benoit GLYCOHEMOGLOBIN A1Con 2021 ADA RECOMMENDATION SEE BELOW Normal [facility] Comment on above: Result Comment: ADA RECOMMENDED LIMIT 4.0 - 6.0 ADA THERAPEUTIC TARGET < 7.0 ACTION SUGGESTED > 7.0 Performed By: #### A 1C #### [facility] [address] [address] [address] Zaira Benoit Glucose [Mass/Vol] 151 mg/dL Normal [facility] Comment on above: Performed By: #### A 1C #### [facility] [address] [address] [address] Zaira Benoit HbA1c (Bld) [Mass fraction] 6.9 % Critically high 4.5-6.2 [facility] Comment on above: Performed By: #### A 1C #### [facility] [address] [address] [address] Zaira Benoit LIPID PROFILEon 05-12-2022 CHOL-HDL RATIO NORM SEE BELOW Normal [facility] Comment on above: Result Comment: 3.3 - 4.4 LOW RISK 4.4 - 7.1 AVERAGE RISK 7.1 - 11.0 MODERATE RISK >11.0 HIGH RISK Performed By: #### L IPID, URIC, CMP #### [facility] [address] [address] [address] Zaira Benoit Cholesterol [Mass/Vol] 132 mg/dL Normal <=200 [facility] Comment on above: Performed By: #### L IPID, URIC, CMP #### [facility] [address] [address] [address] Zaira Benoit Cholesterol in HDL [Mass/Vol] 53 mg/dL Normal 40-60 [facility] Comment on above: Performed By: #### L IPID, URIC, CMP #### [facility] [address] [address] [address] Zaira Benoit Cholesterol in LDL [Mass/Vol] 59.6 mg/dL Normal [facility] Comment on above: Performed By: #### L IPID, URIC, CMP #### [facility] [address] [address] [address] Zaira Benoit Cholesterol.total/Ch olesterol in HDL [Mass ratio] 2.5 {ratio} Normal [facility] Comment on above: Performed By: #### L IPID, URIC, CMP #### [facility] [address] [address] [address] Zaira Benoit HDL NORMAL > or = 60 mg/dl - LO W CARDIOVASCULAR RISK <40 mg/dl - HIGH CARDIOVASCULAR RISK Normal [facility] Comment on above: Performed By: #### L IPID, URIC, CMP #### [facility] [address] [address] [address] Zaira Benoit LDL CALC NORMAL SEE BELOW Normal [facility] Comment on above: Result Comment: <100 mg/dl OPTIMAL 100 - 129 mg/dl NEAR OR ABOVE OPTIMAL 130 - 159 mg/dl BORDERLINE HIGH 160 - 189 mg/dl HIGH >190 mg/dl VERY HIGH Performed By: #### L IPID, URIC, CMP #### [facility] [address] [address] [address] Zaira Benoit Triglyceride [Mass/Vol] 97 mg/dL Normal <=150 [facility] Comment on above: Performed By: #### L IPID, URIC, CMP #### [facility] [address] [address] [address] Zaira Benoit VLDL CALC 19.4 mg/dL Normal [facility] Comment on above: Performed By: #### L IPID, URIC, CMP #### [facility] [address] [address] [address] Zaira Benoit PROF 14(COMP METB)on 022 Albumin [Mass/Vol] 3.9 g/dL Normal 3.4-5.0 [facility] Comment on above: Performed By: #### L IPID, URIC, CMP #### [facility] [address] [address] [address] Zaira Benoit Albumin/Globulin [Mass ratio] 1.1 {ratio} Normal [facility] Comment on above: Performed By: #### L IPID, URIC, CMP #### [facility] [address] [address] [address] Zaira Benoit ALP [Catalytic activity/Vol] 92 U/L Normal 46-116 [facility] Comment on above: Performed By: #### L IPID, URIC, CMP #### [facility] [address] [address] [address] Zaira Benoit ALT [Catalytic activity/Vol] 31 U/L Normal 16-63 [facility] Comment on above: Performed By: #### L IPID, URIC, CMP #### [facility] [address] [address] [address] Zaira Benoit Anion gap [Moles/Vol] 12.2 mmol/L Normal [facility] Comment on above: Performed By: #### L IPID, URIC, CMP #### [facility] [address] [place] [address] Dr. Zaira Benoit AST [Catalytic activity/Vol] 20 U/L Normal 15-37 [facility] Comment on above: Performed By: #### L IPID, URIC, CMP #### [facility] [address] [place] [address] Dr. Zaira Benoit Bilirubin [Mass/Vol] 0.4 mg/dL Normal 0.2-1.0 [facility] Comment on above: Performed By: #### L IPID, URIC, CMP #### [facility] [address] [place] [address] Dr. Zaira Benoit Calcium [Mass/Vol] 8.8 mg/dL Normal 8.5-10.1 [facility] Comment on above: Performed By: #### L IPID, URIC, CMP #### [facility] [address] [place] [address] Dr. Zaira Benoit Chloride [Moles/Vol] 101 mmol/L Normal 98-107 [facility] Comment on above: Performed By: #### L IPID, URIC, CMP #### [facility] [address] [place] [address] Dr. Zaira Benoit CO2 [Moles/Vol] 29.3 mmol/L Normal 21.0-32.0 [facility] [place] [facility] Comment on above: Performed By: #### L IPID, URIC, CMP #### [facility] [address] [place] [address] Dr. Zaira Benoit Creatinine [Mass/Vol] 0.88 mg/dL Normal 0.70-1.30 [facility] Comment on above: Performed By: #### L IPID, URIC, CMP #### [facility] [address] [address] [address] Zaira Benoit EGFR-AF ROMANIAN >60 Normal >=60 [facility] [place] [facility] Comment on above: Performed By: #### L IPID, URIC, CMP #### [facility] [address] [address] [address] Zaira Benoit EGFR-NON AF ROMANIAN >60 Normal >=60 [facility] Comment on above: Performed By: #### L IPID, URIC, CMP #### [facility] [address] [place] [address] Dr. Zaira Benoit Globulin (S) [Mass/Vol] 3.6 g/dL Normal [facility] Comment on above: Performed By: #### L IPID, URIC, CMP #### [facility] [address] [place] [address] Dr. Zaira Benoit Glucose [Mass/Vol] 128 mg/dL Critically high 74-106 [facility] Comment on above: Performed By: #### L IPID, URIC, CMP #### [facility] [address] [place] [address] Dr. Zaira Benoit Potassium [Moles/Vol] 4.5 mmol/L Normal 3.5-5.1 [facility] Comment on above: Performed By: #### L IPID, URIC, CMP #### [facility] [address] [place] [address] Dr. Zaira Benoit Protein [Mass/Vol] 7.5 g/dL Normal 6.4-8.2 [facility] Comment on above: Performed By: #### L IPID, URIC, CMP #### [facility] [address] [place] [address] Dr. Zaira Benoit Sodium [Moles/Vol] 138 mmol/L Normal 136-145 [facility] Comment on above: Performed By: #### L IPID, URIC, CMP #### [facility] [address] [place], [place] [address] Dr. Zaira Benoit Urea nitrogen [Mass/Vol] 4.0 mg/dL Critically low 7.0-18.0 [facility] Comment on above: Performed By: #### L IPID, URIC, CMP #### [facility] [address] [place], [place] [address] Dr. Zaira Benoit Urea nitrogen/Creatinine [Mass ratio] 4.5 mg/mg Normal [facility] Comment on above: Performed By: #### L IPID, URIC, CMP #### [facility] [address] [place], [place] [address] Dr. Zaira Benoit URIC ACID SERUMon 05-12-2022 Urate [Mass/Vol] 7.5 mg/dL Critically high 3.5-7.2 [facility] Comment on above: Performed By: #### L IPID, URIC, CMP #### [facility] [address] [place], [place] [address] Dr. Zaira Benoit No Panel Information [facility] Vital Signs Date Time Vital Sign Value Performing Clinician Facility 07-05-2024 13:49-0500 Body height 175.3 cm Juan Manuel Ford DPM Work Phone: [facility] 07-05-2024 13:49-0500 Body mass index (BMI) [Ratio] 29.53 kg/m2 Juan Manuel Ford DPM Work Phone: [facility] 07-05-2024 13:49-0500 Body weight 90.72 kg Juan Manuel Ford DPM Work Phone: [facility] 07-05-2024 13:49-0500 Diastolic blood pressure 79 mm[Hg] Juan Manuel Ford DPM Work Phone: [facility] 07-05-2024 13:49-0500 Heart rate 82 /min Juan Manuel Ford DPM Work Phone: [facility] 07-05-2024 13:49-0500 Systolic blood pressure 131 mm[Hg] Juan Mnauel Ford DPM Work Phone: [facility] 10-24-2023 14:53-0500 Body weight 97.52 kg Ale Hickman MD Work Phone: [facility] 10-24-2023 14:53-0500 Diastolic blood pressure 66 mm[Hg] Ale Hickman MD Work Phone: [facility] 10-24-2023 14:53-0500 Heart rate 79 /min Ale Hickman MD Work Phone: [facility] 10-24-2023 14:53-0500 Systolic blood pressure 157 mm[Hg] Ale Hickman MD Work Phone: [facility] 10-15-2022 10:45-0500 Diastolic blood pressure 79 mm[Hg] Jf SANCHES [facility] 10-15-2022 10:45-0500 Heart rate 86 /min Jf SANCHES [facility] 10-15-2022 10:45-0500 Systolic blood pressure 128 mm[Hg] Jf SANCHES [facility] 06-28-2022 13:37-0500 Blood Pressure Location Jf SANCHES [facility] 06-28-2022 13:37-0500 Diastolic blood pressure 89 mm[Hg] Jf SANCHES [facility] 06-28-2022 13:37-0500 Heart rate 74 /min Jf SANCHES [facility] 06-28-2022 13:37-0500 Respiratory rate 16 /min Jf SANCHES [facility] 06-28-2022 13:37-0500 Systolic blood pressure 140 mm[Hg] Jf SANCHES [facility] Encounters Encounter Date Encounter Type Care Provider Facility Start: 10-02-2024 End: 10-02-2024 Jose Egan MD Work Phone: [facility] Start: 10-02-2024 End: 10-02-2024 Jose Egan MD Work Phone: [facility] Start: 09-19-2024 End: 09-19-2024 ambulatory BRANDON [facility] Start: 07-05-2024 End: 07-05-2024 Bamboo flowsheet Juan Manuel Ford DPM Work Phone: [facility] Start: 07-05-2024 End: 07-05-2024 Bamboo flowsbonita Ford DPM Work Phone: [facility] Start: 07-05-2024 End: 07-05-2024 Office outpatient visit 15 minutes Juan Manuel Ford DPM Work Phone: [facility] Comment on above: Capsulitis of metata rsophalangeal (MTP) joint of right foot (Primary Dx); Diabetes mellitus due to underlying condition with diabetic polyneuropathy, unspecified whether terminal gauger insulin use ([facility]/HCC); Pain due to onychomycosis of toenails of [...] Appointment Start: 03-06-2024 End: 03-06-2024 ambulatory ROGERIO Woodruff ARIANA Not Available Start: 02-09-2024 End: 02-09-2024 ambulatory JUAN MANUELLa FORD Not Available Start: 02-09-2024 End: 02-09-2024 ambulatory HILDA [facility] Start: 01-26-2024 End: 01-26-2024 ambulatory KAIA Elana EGAN Not Available Start: 12-27-2023 End: 12-27-2023 ambulatory MARQUIS WEAVER Facility:[facility] Start: 12-27-2023 End: 12-27-2023 Patient encounter procedure [...] Start: 12-08-2023 End: 12-08-2023 ambulatory ALE HICKMAN Facility:[facility] Start: 12-08-2023 End: 12-08-2023 Patient encounter procedure Ale Hickman MD Work Phone: Urology Comment on above: Elevated prostate sp ecific antigen (PSA) (Primary Dx); APPOINTMENT CANCELLED Start: 12-08-2023 End: 12-08-2023 Telemedicine consultation with patient Ale Hickman MD Work Phone: [facility] Start: 12-08-2023 Telephone encounter Ale Hickman MD Work Phone: [facility]rology Start: 11-21-2023 End: 11-22-2023 ambulatory Trevor Forte MD Facility:[facility] Start: 11-17-2023 End: 11-17-2023 ambulatory RAUL SUN Facility:[facility] Start: 10-24-2023 End: 10-24-2023 ambulatory RAUL SUN Facility:[facility] Start: 10-24-2023 End: 10-24-2023 Patient encounter procedure Ale Hickman MD Work Phone: Urology Comment on above: Elevated prostate sp ecific antigen (PSA) (Primary Dx); BPH without obstruction/lower urinary tract symptoms Start: 10-21-2023 End: 10-21-2023 ambulatory [facility] Start: 06-27-2023 End: 06-27-2023 ambulatory RAUL SUN Facility:[facility] Start: 06-06-2023 End: 06-06-2023 ambulatory RAUL SUN Facility:[facility] Start: 06-06-2023 End: 06-06-2023 Patient encounter procedure [...] Start: 10-15-2022 End: 10-16-2022 ambulatory Jf SANCHES Facility:[facility] Start: 10-15-2022 End: 10-16-2022 ambulatory Jf SANCHES Facility: [facility] Start: 10-15-2022 End: 10-15-2022 Lab Drop off Jf SANCHES [facility] Start: 10-15-2022 End: 10-15-2022 Patient encounter procedure Jf SANCHES [facility] Start: 07-14-2022 End: 07-14-2022 ambulatory Daina Judge Facility:[facility] Start: 07-14-2022 End: 07-14-2022 ambulatory [employer] Dainaruth Dodge Alfie Work Phone: [facility] Work Phone: Start: 07-14-2022 End: 07-14-2022 Patient encounter procedure [employer] Daina Alfie Work Phone: [facility] Start: 06-28-2022 End: 06-29-2022 ambulatory Jf SANCHES Facility:[facility] Start: 06-28-2022 End: 06-28-2022 Patient encounter procedure Jf SANCHES [facility] Start: 06-16-2022 End: 06-16-2022 Patient encounter procedure [...] 12-27-2023 Computerized ophthal marquis imaging retina Marquis S Meg OD Work Phone: Start: 10-26-[address] ZOLTAN SANCHES . Comment on above: Performed By: #### P SAD #### [facility] [address] [place] [address] Dr. Zaira Benoit Start: 06-16-2022 Post-cataract laser surgery Radha Perez MD Work Phone: Start: 05-12-[address] ZOLTAN SANCHES . Comment on above: Performed By: #### P SASC #### [facility] [address] [place] [address] Dr. Zaira Benoit Start: 02-17-2022 Computerized ophthal [...] PM EDT Office Visit [facility] [address] [facility] [place] [address] Marquis Weaver, OD [address] [facility] [place] [address] Annual Full Eye Exam with [facility]hthal[facility] Comment on above: Annual Full Eye Exam with Mac OCT Start: 12-26-2024 Glaucoma screening Dilated Retinal E xam [facility] Start: 2024 RSV Vaccine (1 - 1-d ose 75+ series) RSV Vaccine (1 - 1-dose 75+ series) [facility] Start: 10-11-2024 End: 10-11-2024 Patient encounter procedure 10/11/2024 1:50 PM EST Procedure Visit [facility] [address] [place] [address] Juan Manuel Ford DPM [address] [address] [facility] Start: 10-02-2024 End: 10-02-2024 Patient encounter procedure 10/02/2024 2:45 PM EST Office Visit [facility] [address] [place] [address] Kaia Egan MD [address] [place] [address] Arrived [facility] Comment on above: Arrived Start: 09-13-2024 End: 09-13-2024 Patient encounter procedure 09/13/2024 2:20 PM EST Procedure Visit [facility] [address] [place] [address] Juan Manuel Ford DPM [address] [address] [facility] Start: 09-06-2024 End: 09-06-2024 Patient encounter procedure 09/06/2024 1:35 PM EST Office Visit [facility] [address] [place] [address] Kaia Egan MD [address] [place] [address] [facility] Start: 06-27-2024 Glaucoma screening Dilated Retinal E xam [facility] Start: 06-06-2024 Hepatitis C antibody , confirmatory test Dilated Retinal Exam [facility] Start: 05-31-2024 End: 06-30-2025 MR Prostate WO and W contrast IV MRI PROSTATE WO/W IVCON Radiology Routine Encounter for observation for other suspected diseases and conditions ruled out Expected: 05/31/2024 (Approximate), Expires: 06/30/2025 [facility] Work Phone: Comment on above: Expected: 05/31/2024 (Approximate), Expires: 06/30/2025 Start: 05-31-2024 End: 06-30-2025 MR Unspecified body region 3D post processing MRI 3D POST PROCESSING Radiology Routine Elevated prostate specific antigen (PSA) Prostate cancer (HCC) Expected: 05/31/2024 (Approximate), Expires: 06/30/2025 [facility] Comment on above: Expected: 05/31/2024 (Approximate), Expires: 06/30/2025 Start: 05-31-2024 End: 08-30-2024 Prostate Specific Ag Free [Mass/volume] in Serum or Plasma PROSTATE SPECIFIC ANTIGEN, FREE Lab Routine Elevated prostate specific antigen (PSA) Prostate cancer (HCC) Encounter for observation for other suspected diseases and conditions ruled out Expected: 05/31/2024 (Approximate), Expires: 08/30/2024 [facility] Comment on above: Expected: 05/31/2024 (Approximate), Expires: 08/30/2024 Start: 04-22-2024 Covid-19 Vaccine () Covid-19 Vacc[address] () [facility] Start: 04-22-2024 Influenza vaccination [facility] Start: 12-27-2023 End: 12-27-2023 Patient encounter procedure 12/27/2023 1:00 PM EDT Office Visit [facility] [address] [place] [address] Marquis Weaver, OD [address] [place] [address] RTC 6 months Dilate and oct [facility] Comment on above: RTC 6 months Dilate and oct [facility] Start: 11-24-2023 End: 02-23-2024 Prostate specific Ag [Mass/volume] in Serum or Plasma PSA/PROSTSPECAG DIAG Lab Routine Elevated prostate specific antigen (PSA) BPH without obstruction/lower urinary tract symptoms Expected: 11/24/2023 (Approximate), Expires: 02/23/2024 [facility] Work Phone: Comment on above: Expected: 11/24/2023 (Approximate), Expires: 02/23/2024 Start: 08-22-2023 Advance Directive Discussion Advance Directive Discussion [facility] Start: 08-22-2023 Behavioral Health Screening Behavioral Health Screening [facility] Start: 08-22-2023 Depression [facility] Start: 06-16-2023 Hepatitis C antibody , confirmatory test DILATED RETINAL EXAM [facility] Start: 04-22-2023 Covid-19 Vaccine () Covid-19 Vaccine ( season) [facility] Start: 04-22-2023 Influenza vaccination C [facility] Start: 03-01-2023 Hepatitis C antibody , confirmatory test DILATED RETINAL EXAM [facility] Start: 02-17-2023 Hepatitis C antibody , confirmatory test DILATED RETINAL EXAM [facility] Start: 12-11-2022 COVID-19 VACCINE (5 - Pfizer series) COVID-19 VACCINE (5 - Pfizer series) [facility] Start: 08-22-2022 ADVANCE DIRECTIVE DISCUSSION ADVANCE DIRECTIVE DISCUSSION [facility] Start: 08-22-2022 DEPRESSION ASSESSMENT DEPRESSION ASS ESSMENT [facility] Start: 05-07-2022 COVID-19 VACCINE (4 - Booster for Pfizer series) COVID-19 VACCINE (4 - Booster for Pfizer series) [facility] Start: 04-22-2022 Influenza vaccination C [facility] Start: 08-22-2021 ADVANCE DIRECTIVE DISCUSSION ADVANCE DIRECTIVE DISCUSSION [facility] Start: 08-22-2021 DEPRESSION ASSESSMENT DEPRESSION ASS ESSMENT [facility] Start: 04-16-2021 COVID-19 VACCINE (3 - Booster for Pfizer series) COVID-19 VACCINE (3 - Booster for Pfizer series) [facility] Start: 07-25-2020 COLORECTAL CANCER SCREENING COLORECTAL CANCER SCREENING [facility] Start: 07-25-2020 FECAL OCCULT BLOOD FECAL OCCULT BLOO D [facility] Start: 07-25-2020 Hepatitis B screening URINE ALBUMIN:CREATININE RATIO [facility] Start: 07-25-2020 Hepatitis B surface antibody level LDL CHOLESTEROL [facility] Start: 07-25-2020 Screening for malign ant neoplasm of colon [facility] Start: 01-24-2020 Hemoglobin A1c measurement HbA1C [facility] Start: 01-24-2020 Hemoglobin A1c/Hemoglobin.total in Blood HBA1C [facility] Start: 2014 Pneumococcal Vaccine : 65+ Years (1 of 1 - PCV) Pneumococcal Vaccine: 65+ Years (1 of 1 - PCV) [facility] Start: 2009 Hepatitis B Vaccine (1 of 3 - Risk 3-dose series) Hepatitis B Vaccine (1 of 3 - Risk 3-dose series) [facility] Start: 2009 RSV Vaccine (1 - 1-d ose 60+ series) RSV Vaccine (1 - 1-dose 60+ series) [facility] Start: 11-27-1999 SHINGRIX VACCINE (1 of 2) SHINGRIX VACCINE (1 of 2) [facility] Start: 1994 COLOGUARD (FIT-DNA) COLOGUARD (FIT-D NA) [facility] Start: [address] [facility] Start: [address] COLONOGRAPHY [facility] Start: 1994 Screening for malign ant neoplasm of colon [facility] Start: 1994 SIGMOIDOSCOPY SIGMOIDOSCOPY [facility] Start: [address] [facility] Start: 11-27-1967 ANNUAL PCP TEAM SHIPS OR BARGES LOADER GERSON DISEASE VISIT ANNUAL PCP TEAM CHRONIC DISEASE VISIT [facility] Start: 11-27-1967 Anxiety Screening Anxiety Screening [facility] Start: 11-27-1967 Depression Screening Depression Scre ening [facility] Start: 11-27-1967 HEPATITIS C SCREENING HEPATITIS C SC MANUEL [facility] Start: 11-27-1967 Hepatitis C screening Hepatitis C [facility] Start: 1961 Adult depression screening assessment DEPRESSION SCREENING [facility] Start: 11-27-1959 3 comp foot exam completed DIABETIC FOOT EXAM [facility] Start: 11-27-1959 Diabetic foot examination Diabetic Foot Exam [facility] Start: 11-27-1955 Pneumococcal Vaccine : 65+ (1 - PCV) Pneumococcal Vaccine: 65+ (1 - PCV) [facility] Start: 11-27-1955 Pneumococcal Vaccine : 65+ (1 of 2 - PCV) Pneumococcal Vaccine: 65+ (1 of 2 - PCV) [facility] Start: 11-27-1955 PNEUMOCOCCAL: 65+ (1 - PCV) PNEUMOCOCCAL: 65+ (1 - PCV) [facility] Start: 1950 ABDOMINAL AORTIC ANEURYSM SCREENING ABDOMINAL AORTIC ANEURYSM SCREENING [facility] Start: 1949 Abdominal aortic aneurysm screening Abdominal Aortic Aneurysm Screening [facility] Start: 1949 Screening for malign ant neoplasm of colon [facility] Immunizations Immunization Date Immunization Notes Care Provider Fa giorgio 03-12-2022 SARS-CoV-2 mRNA (hoqayzpumgg-omzi-jvaar se) vaccine Jf SELENA [facility] Comment on above: Result Comment: 2021: TPV70 11-14-2020 COVID-19 vaccine, ag e 12+ yr (PFIZER-BIONTECH - PURPLE TOP) Radha Perez MD Work Phone: [facility] Comment on above: Result Comment: 2021: TPV70 10-24-2020 COVID-19 vaccine, ag e 12+ yr (PFIZER-BIONTECH - PURPLE TOP) Radha Perez MD Work Phone: [facility] Comment on above: Result Comment: 2021: TPV70 Payers Date Payer Category Payer Medicare [id number] 2022 Self-pay 2021 Medicare (Managed Care) 1.2. [id number] 2017 Unknown ANTHEM BLUE CROS S AND BLUE SHIELD ANTHEM QUIANAUE O [id number] 2017-Present [phone] [address] [place] [address] O [id number] 2017 Unknown [id number] 1959 Medicare [id number] 1949 Unknown [id number] .593 1949 Unknown [id number] 2.16.840.1.653565.3.579.2 .593 1949 Unknown [id number] 2.16.840.1.214376.3.579.2 .593 1949 Unknown [id number] 2.16.840.1.199868.3.579.2 .727 1949 Unknown [id number] 2.16.840.1.287822.3.579.2 .727 1949 Unknown [id number] 2.16.840.1.265460.3.579.2 .727 1949 Unknown [id number] 2.16.840.1.490736.3.579.2 .196 1949 Unknown [id number] 2.16.840.1.142552.3.579.2 .196 1949 Unknown [id number] 2.16.840.1.485317.3.579.2 .1259 1949 Unknown [id number] 2.16.840.1.859335.3.579.2 .1259 1949 Unknown [id number] 2.16.840.1.752141.3.579.2 .1259 1949 Unknown [id number] 2.16.840.1.385305.3.579.2 .1259 Medicare Medicare [id number] Unknown [id number] [id number] .531 Social History Date Type Detail Facility Start: 11-03-2016 End: 01-25-2023 Tobacco smoking status NHIS Smokes tobacco daily [facility] History of tobacco use Cigarette Smoker C [facility] Start: 11-03-2016 End: 07-05-2024 Cigarettes smoked current (pack per day) - Reported 1 [facility] Start: 11-03-2016 End: 01-25-2023 Tobacco use and exposure Smokeless tobacco non-user [facility] Start: 02-17-2022 End: 07-05-2024 Alcohol intake Current drinker of alcohol (finding) [facility] Start: 11-20-2018 History SDOH Alcohol Comment per day [facility] Start: 1950 Sex Assigned At Not on file C [facility] Start: 06-28-2022 End: 10-15-2022 Tobacco smoking status Heavy tobacco smoker (finding) [facility] Start: 06-16-2022 End: 07-05-2024 Sex Assigned At Male [facility] Start: 1950 Sex Assigned At Male [facility] National Score (1-10 0), lower number is lower risk 87 [facility] Medical Equipment Procedure Code Equipment Code Equipment Origin al Text Equipment Identifier Dates Lens Acrysof Iq +19.5 Diopter Natural Stableforce 0 D Biconvex 118.7 - [id number] Start: 02-07-2017 Functional Status Date Assessment Result Facility 10-15-2022 Functional Status N/A [facility] 11-07-2022 Functional Status N/A [facility] Clinical Notes 02-17-2022 to 09-19-2024 Juan Manuel Ford, DPM - 07/05/2024 1:50 PM ESTTelephone Encounter - Paty Lacey - 06/01/2024 10:53 AM EDTTelephone Encounter - Paty Lacey - 06/01/2024 10:53 AM EDTPatient Instructions Note Date & Type Note Facility 09-19-2024 Note Patient here for 6 m o follow up hypertension and LE edema. Had routine labs w/ lipid panel in Apr 2024. Most recent labs last month. He really isn't sure of his medications but states nothing has changed. Denies chest pain, palpitations, and lightheadedness/syncope. Review of Systems Cardiovascular: Positive for dyspnea on exertion (w/ stairs) and leg swelling (LLE, intermittent). Skin: Positive for dry skin. Musculoskeletal: Positive for arthritis, back pain, joint pain, muscle weakness and myalgias. Neurological: Positive for weakness. All other systems reviewed and are negative. [facility] 09-19-2024 Note SUBJECTIVE Gianfranco Martin is a 73 y.o. year old male patient being seen for No chief complaint on file. SOB on exertion, + orthopnea sleeps with two pillows unable to lay flat. HPI 09/19/2024: Office Visit Gianfranco Martin is a 73 yo male with PMH HTN, LE edema, smoker. He endorses SOB on exertion when walking up stairs, denies SOB at rest, + orthopnea sleeps with two pillows unable to lay flat. Denies chest pain, palpations, dizziness. He has no other concerns for this visit. 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 Social History Tobacco Use Smoking status: Every Day Current packs/day: 1.50 Types: Cigarettes Smokeless tobacco: Never Substance Use Topics Alcohol use: Yes Comment: 4-5 cans of beer daily ROS OBJECTIVE Visit Vitals BP 142/80 (BP Location: Left arm, Patient Position: Sitting) Pulse 82 Ht 1.753 m (5' 9 ) Wt 97.1 kg (214 lb) SpO2 97% BMI 31.60 kg/m??? Smoking Status Every Day BSA 2.17 m??? Physical Exam Constitutional: No acute distress. Psychiatric: Mental Status: alert and normal affect. Insight: good judgement. Eyes: Lids and Conjunctivae: non-injected and no discharge. Pupils: PERRLA. Neck: Neck: supple and trachea midline. Jugular Veins: normal jugular venous pressure. Lungs: Respiratory Effort: unlabored. Auscultation: no rales or rhonchi and normal breath sounds. Cardiovascular: Rate And Rhythm: regular. Heart Sounds: normal S1 and S2. Systolic Murmur: not heard. Diastolic Murmur: not heard. Extremities: +1 LE edema. Peripheral Pulses: Pulses: full and equal in all extremities except if noted. Abdomen: Inspection and Palpation: non distended or tender and soft. Skin: Inspection and Palpation: warm and dry. Allergies Allergies Allergen Reactions Amlodipine Swelling Cannot tolerate 10mg due to edema Penicillin Unknown and Other Medications Current Outpatient Medications: albuterol 90 mcg/actuation inhaler, , Disp: , Rfl: amLODIPine (Norvasc) 5 mg tablet, Take 1 tablet (5 mg) by mouth in the morning., Disp: 90 tablet, Rfl: 3 atorvastatin (Lipitor) 10 mg tablet, 1 (one) time each day at the same time., Disp: , Rfl: busPIRone (Buspar) 10 mg tablet, every 12 (twelve) hours., Disp: , Rfl: cholecalciferol, vitamin D3, 50 mcg (2,000 unit) capsule, Take by mouth., Disp: , Rfl: diclofenac (Voltaren) 75 mg EC tablet, 1 tablet Orally Twice a day prn for 14 days, Disp: , Rfl: FLUoxetine (PROzac) 40 mg capsule, Take 40 mg by mouth in the morning., Disp: , Rfl: furosemide (Lasix) 20 mg tablet, Take 40 mg by mouth in the morning., Disp: , Rfl: loratadine (Claritin) 10 mg tablet, 1 (one) time each day at the same time., Disp: , Rfl: losartan (Cozaar) 50 mg tablet, Take 50 mg by mouth in the morning., Disp: , Rfl: metFORMIN (Glucophage) 500 mg tablet, every 12 (twelve) hours., Disp: , Rfl: spironolactone (Aldactone) 25 mg tablet, Take 1 tablet (25 mg) by mouth in the morning., Disp: 90 tablet, Rfl: 3 traZODone (Desyrel) 150 mg tablet, 1 (one) time each day at the same time., Disp: , Rfl: carvedilol (Coreg) 12.5 mg tablet, Take 1 tablet (12.5 mg) by mouth with breakfast and with evening meal., Disp: 60 tablet, Rfl: 11 potassium chloride ER (Micro-K) 10 mEq ER capsule, TAKE 1 CAPSULE BY MOUTH TWICE DAILY WITH FOOD, Disp: , Rfl: Recent Labs No visits with results within 6 Month(s) from this visit. Latest known visit with results is: No results found for any previous visit. Imaging and other tests Assessment and Plan #Hypertension BP 142/80 -Took off atenolol -Started on coreg 12.5 BID #Edema of both lower extremities +1 edema to LE -Continue lasix 40 mg daily #Tobacco dependence 2 packs per day smoker -Recommended smoking cessation after 5 min discussion and pt declined, has said he tried multiple times over the last few decades and won't quit. #ETOH dependence: 4-5 beer per day Chronic hyponatremia likely secondary to ETOH use, 131 yesterday -Encouraged to quit or reduce drinking. Plan: Started Coreg 12.5 BID for BP management Follow up in about 3 months (around 12/18/2024). Brandon Brumfield, [facility] Cardiovascular Med (more content not included)... [facility] 07-05-2024 History of Present illness Narrative Patient: [...] Diagnosis Date COPD (chronic obstructive pulmonary disease) ([facility]) Depression ([facility]) DM (diabetes mellitus) ([facility]) HLD (hyperlipidemia) ([facility]) HTN (hypertension) ([facility]) Squamous cell skin cancer Medications: [...] Partner Violence: Unknown (10/13/2023) [facility] [place] [employer] Fear of [...] and negative PT pedal pulses NEURO: 5.07 [place] Sally monofilament test diminished to digits and forefoot bilaterally 125Hz tuning fork diminished to 1st MPJ bilaterally ORTHO: Positive pain on palpation to nails 1 through 10 Minimal pain on palpation to right 4th MPJ plantar capsule with negative Jeremy test ASSESSMENT 1. Diabetes mellitus due to underlying condition with diabetic polyneuropathy, unspecified whether terminal gauger insulin use ([facility]) 2. Pain due to onychomycosis [...] Manuel Ford DPM documented in this encounter [facility] 06-01-2024 Telephone encounter Note Julius Hickman- Spoke to patient Told Patient I was calling to get him scheduled for PSA and MRI with a follow up to see you. 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 Pt explained his Urology provider, Dr Barroso at [facility], scheduled him an MRI and he was [...] Paty Lacey June 01, 2024 11:[address] [facility] 06-01-2024 Miscellaneous Notes Julius Hickman- Spoke to patient Told Patient I was calling to get him scheduled for PSA and MRI with a follow up to see you. 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 Pt explained his Urology provider, Dr Barroso at [facility], scheduled him an MRI and he was [...] up. Mychart sent. documented in this encounter [facility] 05-31-2024 Telephone encounter Note Images from the original note were not included. Jovita Glover Urol Schedulers Pool Please schedule patient for an MRI Prostate and then for an OV to follow per request! LVM for pt to call back and schedule MRI and follow up. Mychart sent. [facility] 05-31-2024 Instructions Jovita Glover - 05/31/2024 2:29 PM EDT PSA test and MRI Prostate Schedule office visit to follow documented in this encounter [facility] 05-31-2024 Note HNO ID: [id number] Author: ?, ?, ? Service: ? Author Type: ? Type: Progress Notes Filed: 05/31/2024 14:32 Note Text: INPATIENT TELEPHONE VISIT PROGRESS NOTE SERVICE DATE: 05/31/2024 SERVICE TIME: 2:00pm Gianfranco Martin has consented to this telephone encounter. Persons Present: patient Chief Complaint/Reason: discuss need for prostate biopsy HPI: Data Reviewed: Most recent labs PSA from [facility] on 05-18-24 = 16.17 (normal [...] is accurate and complete. Ale Hickman M.D. [facility] 05-31-2024 History of Present illness Narrative INPATIENT TELEPHONE VISIT PROGRESS NOTE SERVICE DATE: 05/31/2024 SERVICE TIME: 2:00pm Gianfranco Martin has consented to this telephone encounter. Persons Present: patient Chief Complaint/Reason: discuss need for prostate biopsy HPI: Data Reviewed: Most recent labs PSA from [facility] on 05-18-24 = 16.17 (normal [...] Ale Hickman M.D. documented in this encounter [facility] 05-25-2024 Telephone encounter Note Call placed to patient in regards to message below. LVMM for patient to return call back to [phone], in regards to his recent lab results and orders on how Dr. Hickman would like to proceed. [facility] 05-25-2024 Miscellaneous Notes Call placed to patient in regards to message below. LVMM for patient to return call back to [phone], in regards to his recent lab results and orders on how Dr. Hickman would like to proceed. Please notify patient his PSA is very high and he is at high risk of having prostate cancer. he needs to schedule his prostate biopsy unless he had it done else where PSA from [facility] on 05-18-24 = 16.17 (normal values 0-4) Can be done in office under local or in ASC under [facility] Ale Hickman MD documented in this encounter [facility] 05-25-2024 Telephone encounter Note Please notify patient his PSA is very high and he is at high risk of having prostate cancer. he needs to schedule his prostate biopsy unless he had it done else where PSA from [facility] on 05-18-24 = 16.17 (normal values 0-4) Can be done in office under local or in ASC under [facility] Ale Hickman MD [facility] Work Phone: 05-25-2024 Note HNO ID: [id number] Author: ALE HICKMAN MD Service: ? Author Type: Physician Type: Progress Notes Filed: 05/25/2024 07:14 Note Text: PSA still rising PSA from [facility] on 05-18-24 = 16.17 (0-4) [facility] 05-25-2024 History of Present illness Narrative PSA still rising PSA from [facility] on 05-18-24 = 16.17 (0-4) documented in this encounter [facility] 02-09-2024 Note Greatly improved wit h increased dose of lasix. Trace edema noted today Renal function stable [facility] 02-09-2024 Note Hypertension is unch anged- stable well controlled Continue current treatment regimen. Dietary sodium restriction. Continue current medications. Blood pressure will be reassessed at the next regular appointment. [facility] 02-09-2024 Note Recommended smoking cessation after 5 min discussion and pt declined [facility] 02-09-2024 Note Patient here for 3 m [...] are negative. [facility] 02-09-2024 Note [facility]TP CARDIOLOGY PROGR ESS NOTE [...] noted today Renal function stable RTC 6months [facility] 12-27-2023 Note Date of Procedure 12/27/2023. Interpretation Right Eye Normal without fluid. Findings include Negative for Intraretinal fluid, Cystoid macular edema. Left Eye Abnormal foveal contour. Findings include Negative for Intraretinal fluid, Cystoid macular edema. Interval Change Right Eye Stable. Left Eye Stable. [facility] 12-27-2023 Note HNO ID: [id number] Author: MARQUIS WEAVER, JOEL Service: ? Author Type: CONCESSION SUPERVISOR Type: Progress Notes Filed: 12/27/2023 13:45 Note [...] Stable Monitor December 27, 2023 1:40 PM [facility] 12-27-2023 History of Present illness [...] 2023 1:40 PM documented in this encounter [facility] 12-13-2023 Telephone encounter Note Please call again and update me Please notify patient that his PSA is rising from 9 to 10.6 He needs prostate bx Can be done in office under local anesthesia or in ASC under [facility] ( [place] sleep) He can come to leaf size picker flyer on prostate bx To schedule office visit to discuss prostate bx if he wishes Ale Hickman MD [facility] Work Phone: 12-13-2023 Miscellaneous Notes Please call again and update me Please notify patient that his PSA is rising from 9 to 10.6 He needs prostate bx Can be done in office under local anesthesia or in ASC under MAC ( [place] sleep) He can come to leaf size picker flyer on prostate bx To schedule office visit to discuss prostate bx if he wishes Ale Hickman MD documented in this encounter [facility] 12-08-2023 Miscellaneous Notes Phone visit unsuccessful and had only VOICE MAIL X 2 I DID NOT LEAVE A MESSAGE Please notify patient that his PSA is rising from 9 to 10.6 He needs prostate bx Can be done in office under local anesthesia or in ASC under MAC ( [place] sleep) He can come to leaf size picker flyer on prostate bx To update me Ale Hickman MD documented in this encounter [facility] 12-08-2023 Note HNO ID: [id number] Author: ?, ?, ? Service: ? Author Type: ? Type: Progress Notes Filed: 12/08/2023 14:51 Note Text: 72 year old male with nuclear sclerotic senile, ERM, pseudophakia here today for elevated PSA. PSA PSA PSA, PERCENT FREE Latest Ref Rng <2.60 ng/mL % 07/25/2019 5.33 (H) 6 5.34 (H) 11/17/2023 10.58 (H) Attempted to call patient at 2:41. No answer. [facility] 12-08-2023 History of Present illness Narrative 72 year old male with nuclear sclerotic senile, ERM, pseudophakia here today for elevated PSA. PSA PSA PSA, PERCENT FREE Latest Ref Rng <2.60 ng/mL % 07/25/2019 5.33 (H) 6 5.34 (H) 11/17/2023 10.58 (H) Attempted to call patient at 2:41. No answer. documented in this encounter [facility] 10-24-2023 Instructions Raven Babcock - 10/24/2023 3:05 PM EST -PSA in 4 weeks at [facility] lab -Schedule telephone visit in 5 weeks to discuss PSA blood test documented in this encounter [facility] 10-24-2023 History of Present illness Narrative Gianfranco Martin [address] [place] [address] 72 year old male with nuclear sclerotic [...] 2007 Retinal detachment, left eye, repaired in [place], [place] PAST SURGICAL HISTORY OF hernia sx, [...] nontender, w/o nodules. Good anal sphincter tone. [facility] SYMPTOMS SCORE. Date 10/24/2023 1. [...] Ale Hickman M.D. documented in this encounter [facility] 10-24-2023 Note HNO ID: [id number] Author: ?, ?, ? Service: ? Author Type: ? Type: Progress Notes Filed: 10/24/2023 15:09 Note Text: Gianfranco Martin [address] [place] [address] 72 year old male with nuclear sclerotic [...] 2007 Retinal detachment, left eye, repaired in [place], [place] PAST SURGICAL HISTORY OF hernia sx, [...] nontender, w/o nodules. Good anal sphincter tone. [facility] SYMPTOMS SCORE. Date 10/24/2023 1. [...] the services describe (more content not included)... [facility] 10-21-2023 Note PCP increased lasix to 40 mg daily, and I started aldactone at last visit. Renal function remains normal [facility] 10-21-2023 Note Patient is unsure of his medications, why he takes each med and sometimes not sure if he is taking them once or twice a day [facility] 10-21-2023 Note Hypertension is stil l elevated and leg swelling pt states is unchanged Resume norvasc 5 mg daily, continue atenolol, losartan bid, aldactone and lasix [facility] 10-21-2023 Note UTP CARDIOLOGY PROGR ESS NOTE [...] he takes. [facility] 10-21-2023 Note Patient here for 1 m [...] are negative. [facility] 06-27-2023 Note HNO ID: [id number] Author: Kenyon Angel, JOEL Service: ? Author Type: CONCESSION SUPERVISOR Type: Progress Notes Filed: 06/27/2023 1:37 PM [...] in detail with the patient. Kenyon Angel, JOEL June 27, 2023 1:37 PM [facility] 06-06-2023 Note HNO ID: [id number] Author: Marquis Weaver S, OD Service: ? Author Type: CONCESSION SUPERVISOR Type: Progress Notes Filed: 06/06/2023 2:29 PM [...] Weaver, OD June 06, 2023 2:22 PM [facility] 06-06-2023 History of Present illness [...] 2023 2:22 PM documented in this encounter [facility] 10-15-2022 Hospital Discharge instructions Patient [...] one of these risk factors: ?Being of -[place]ammarinese descent. ?Having a family history of prostate [...] you: Are older than age 55. Are -Sammarinese. Have a father, brother, or uncle who [...] 05/19/2018 Document Revised: 07/21/2018 Document Reviewed: 05/19/2018 [employer] Patient Education 2019 [employer] [employer]. Follow Up Care 10/05/2022 09:16:20 With:SELENA LEONG, Jf Reis, URL Address: [address] [place], [place] [id number]- When: Unknown [facility] 06-28-2022 Note Chief Complaint Referral-Elevated PSA HPI [...] URL [facility] [address], [place] [phone] Additional Instructions: pt will f/u based on [...] Father. Immunizations Vaccine Date Status Comments SARSCoV2 mRNA(evcxbuxki-ldon-saumyy) vac 03/12/2022 Recorded 2022-06-28: TPV70 SARS-CoV-2 (COVID-19) mRNA BNT-162b2 vax 11/14/2020 Recorded 2022-06-28: TPV70 SARS-CoV-2 (COVID-19) mRNA BNT-162b2 vax 10/24/2020 Recorded 2022-06-28: TPV70 Lab Results Test Name Test Result Date/Time PSA, External 6.8 ng/mL 05/20/2022 08:26 EDT PSA, External 8.41 ng/mL 05/12/2022 08:25 EDT Diagnostic Results Test (more content not included)... [facility] Comment on above: Result Comment: Elec tronically [...] urethra. Follow these instructions at home: Take xqam-cmf-mtkerdd and prescription medicines only as told by [...] 08/08/2006 Document Revised: 07/03/2019 Document Reviewed: 09/12/2017 [employer] Patient Education 2020 [employer] [facility]. Follow Up Care 05/27/2022 15:25:17 With:SELENA LEONG, STEFANI Seo Address: [facility] [address], [place] [address] [phone] When: Unknown [facility] 06-16-2022 History of Present illness Narrative ASSESSMENT/PLAN: [...] Z96.1 -S/P PCIOL Left eye (02/07/17) Aim: [place] by Dr. Ana farnsworth; He states that he is happy using OTC readers and declines appt for refraction with table operator 3. Nuclear senile cataract of right eye - ICD9: 366.16, ICD10: H25.11 He is still happy enough with his vision and opts to follow up with Dr. Perez January 2023 for exam/cataract evaluation 4. History of retinal detachment - left eye - ICD9: V12.49, ICD10: Z86.69 history of retinal detachment repair OS 2007 in [place]. Farnsworth. Call/come in for evaluation immediately if any [...] Radha Perez MD documented in this encounter [facility] 03-01-2022 History of Present illness [...] 2022 4:08 PM documented in this encounter [facility] 02-26-2022 Miscellaneous Notes Called to let patient know we were able to get him an appointment in [place] at 4pm, left message. SENTHIL Ballesteros February 26, 2022 3:[address] Perez and she recommends that he be seen today. Please reach out to Patient to see if we can get appointment. SENTHIL Ballesteros February 26, 2022 2:57 PM documented in this encounter [facility] 02-17-2022 History of Present illness [...] h/o retinal detachment repair OS 2007 in [place]. Stable. Call/come in for evaluation immediately if [...] eye -S/P PCIOL Left eye (02/07/17) Aim: [place] by Dr. Perez Signs and symptoms of posterior capsular opacification were reviewed. Discussed possible eventual need for Yag laser posterior capsulotomy. Patient is still happy enough with vision, so declines Yag procedure for now. stable; he remains happy with his vision OS and with OTC readers If he wishes to get new glasses, previously offered an undilated refraction with our optometrists in [place]; he was told that vision with new glasses would not be perfect due to cataract OD; he also has mild PCO OS and Epiretinal membrane OS. He sees a nurse practitioner in [place] Offered for him to establish with a [facility] net manager in [place] Return to clinic in 12 months for [...] Perez MD 02/17/22 documented in this encounter [facility] Evaluation + Plan note No data available for this section [facility] Evaluation note Diagnosis Nuclear senile cataract of [...] by other means [facility] Diagnosis 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, [...] both upper eyelids [facility] Diagnosis 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, [...] as uncontrolled [facility] noteNo assessment information availableNew[facility] Work Phone: Evaluation note* Diagnosis OPENED IN ERROR- Primary To allow closing an encounter opened in error (used in SmartSet) documented in this encounter [facility] note* Diagnosis Type 2 diabetes mellitus [...] and sense organs [facility] [place] [facility]* Diagnosis Elevated prostate specific antigen (PSA)- Primary BPH without obstruction/lower urinary tract symptoms Hypertrophy of prostate without urinary obstruction and other lower urinary tract symptoms (LUTS) documented [facility] this [facility] [place] [facility]* Diagnosis Elevated prostate specific antigen (PSA)- Primary APPOINTMENT CANCELLED Retinal hemorrhage, left eye- Primary Retinal hemorrhage History of retinal detachment Personal history of other disorders of nervous system and sense organs Epiretinal membrane (ERM) of left eye documented [facility] this [facility] [place] [facility]* Diagnosis Retinal hemorrhage, left eye- Primary Retinal hemorrhage History of retinal detachment Personal history of other disorders of nervous system and sense organs Epiretinal membrane (ERM) of left eye Nuclear senile cataract of right eye Pseudophakia, left eye Lens replaced by other means History of YAG laser capsulotomy of lens, left documented in this [facility] [place] [facility]* Diagnosis Elevated prostate specific antigen (PSA)- Primary Prostate cancer (HCC) Malignant neoplasm of prostate Encounter for observation for other suspected diseases and conditions ruled out documented in this encounter [facility] note* Diagnosis Capsulitis of metatarsophalangeal (MTP) joint of right foot- Primary Diabetes mellitus due to underlying condition with diabetic polyneuropathy, unspecified whether longterm insulin use ([facility]/HCC) Pain due to onychomycosis of toenails of both feet Venous insufficiency Unspecified venous (peripheral) insufficiency [facility] No data available for this section [facility] No data available for this section [facility] [place] Medications Administered Section Active Administered Medications - [...] the event of a Fluress shortage, administer [place]-Fluor 1 drop into both eyes as directed [...] Documents on File Type Date Recorded Patient [employer] Intern[employer] Expl anation Advance Directive(s) 02/07/2017 9:56 AM [...] W/INTERP&POSTPROC DIFF WORK STATION Ale Hickman MD [address] [place] [address] [place] [address] Referral ID Status Reason Start Date Expiration Date Visits Requested Visits Authorized [id number] New Request Auto-Generat ed Referral 4 06/30/2025 1 1 Specialty Diagnoses / Procedures Referred By Ever kaiser Referred To Contact [facility] IMAGING Diagnoses Encounter for observation for other suspected diseases and conditions ruled out Procedures MRI PROSTATE WO/W IVCON MRI PELVIS W/O & W/CONTRAST MATERIAL Ale Hickman MD [address] [place] [address] [place] [address] Referral ID Status Reason Start Date Expiration Date Visits Requested Visits Authorized [id number] New Request Auto-Generat ed Referral 4 06/30/2025 1 1 Additional Source Comments Source Comments (unrecognize d section and content) In the event this informatio n is protected by the Federal Confidentiality of Alcohol and Drug Abuse Patient Records regulations: The Federal rules restrict any use of the information to criminally investigate or prosecute any alcohol or drug abuse patient.[facility] the event this information is protected by the Federal Confidentiality of Alcohol and Drug Abuse Patient Records regulations: The Federal rules restrict any use of the information to criminally investigate or prosecute any alcohol or drug abuse patient.[facility] the event this information is protected by the Federal Confidentiality of Alcohol and Drug Abuse Patient Records regulations: The Federal rules restrict any use of the information to criminally investigate or prosecute any alcohol or drug abuse patient.[facility] the event this information is protected by the Federal Confidentiality of Alcohol and Drug Abuse Patient Records regulations: The Federal rules restrict any use of the information to criminally investigate or prosecute any alcohol or drug abuse patient.[facility] the event this information is protected by the Federal Confidentiality of Alcohol and Drug Abuse Patient Records regulations: The Federal rules restrict any use of the information to criminally investigate or prosecute any alcohol or drug abuse patient.[facility] the event this information is protected by the Federal Confidentiality of Alcohol and Drug Abuse Patient Records regulations: The Federal rules restrict any use of the information to criminally investigate or prosecute any alcohol or drug abuse patient.[facility] the event this information is protected by the Federal Confidentiality of Alcohol and Drug Abuse Patient Records regulations: The Federal rules restrict any use of the information to criminally investigate or prosecute any alcohol or drug abuse patient.[facility] Center[facility] the event this information is protected by the Federal Confidentiality of Alcohol and Drug Abuse Patient Records regulations: The Federal rules restrict any use of the information to criminally investigate or prosecute any alcohol or drug abuse patient.[facility] the event this information is protected by the Federal Confidentiality of Alcohol and Drug Abuse Patient Records regulations: The Federal rules restrict any use of the information to criminally investigate or prosecute any alcohol or drug abuse patient.[facility] Center[facility] the event this information is protected by the Federal Confidentiality of Alcohol and Drug Abuse Patient Records regulations: The Federal rules restrict any use of the information to criminally investigate or prosecute any alcohol or drug abuse patient.[facility] Center[facility] the event this information is protected by the Federal Confidentiality of Alcohol and Drug Abuse Patient Records regulations: The Federal rules restrict any use of the information to criminally investigate or prosecute any alcohol or drug abuse patient.[facility] Center[facility] the event this information is protected by the Federal Confidentiality of Alcohol and Drug Abuse Patient Records regulations: The Federal rules restrict any use of the information to criminally investigate or prosecute any alcohol or drug abuse patient.[facility] Center[facility] the event this information is protected by the Federal Confidentiality of Alcohol and Drug Abuse Patient Records regulations: The Federal rules restrict any use of the information to criminally investigate or prosecute any alcohol or drug abuse patient.[facility] Center[facility] the event this information is protected by the Federal Confidentiality of Alcohol and Drug Abuse Patient Records regulations: The Federal rules restrict any use of the information to criminally investigate or prosecute any alcohol or drug abuse patient.[facility] CenterIn the event this information is protected by the Federal Confidentiality of Alcohol and Drug Abuse Patient Records regulations: The Federal rules restrict any use of the information to criminally investigate or prosecute any alcohol or drug abuse patient.[facility] Reason for Visit (unrecogniz ed [...] Care Teams (unrecognized sec tion and content) Claims Administrator Relationship Specialty Start Date End Date Raul Sun MD PCP - General Family Practice 02/11/21 Claims Administrator Relationship Specialty Start Date End Date Raul Sun MD PCP - General Family Practice 02/11/21 Claims Administrator Relationship Specialty Start Date End Date Raul Sun MD PCP - General Family Practice 02/11/21 Claims Administrator Relationship Specialty Start Date End Date Raul Sun MD PCP - General Family Medicine 02/11/21 Team Status: Inactive Member Role Status Dates Jf Sanches MD Attending Provider Active Daina Judge NP-[place] Primary Care Provider Active Team Status: Active Member Role Status Dates Daina Judge NP-[place] Primary Care Provider Active Claims Administrator Relationship Specialty Start Date End Date Raul Sun MD PCP - General Family Medicine 02/11/21 Claims Administrator Relationship Specialty Start Date End Date Raul Sun MD PCP - General Family Medicine 02/11/21 Claims Administrator Relationship Specialty Start Date End Date Raul Sun MD PCP - General Family Medicine 02/11/21 Daina Judge, HIRO [address] [place] [place] [address] Referring Internal Medicine 10/15/23 Claims Administrator Relationship Specialty Start Date End Date Raul Sun MD PCP - General Family Medicine 02/11/21 Daina Judge, HIRO [address] [place] [place] [address] Referring Internal Medicine 10/15/23 Claims Administrator Relationship Specialty Start Date End Date Raul Sun MD PCP - General Family Medicine 02/11/21 Daina Judge, HIRO [address] [place] [address] Referring Internal Medicine 10/15/23 Claims Administrator Relationship Specialty Start Date End Date Raul Sun MD PCP - General Family Medicine 02/11/21 Daina Judge CNP [address] [place] [place] [address] Referring Internal Medicine 10/15/23 Claims Administrator Relationship Specialty Start Date End Date Raul Sun MD PCP - General Family Medicine 02/11/21 Daina Judge, HIRO [address] [place] [address] Referring Internal Medicine 10/15/23 Claims Administrator Relationship Specialty Start Date End Date Raul Sun MD PCP - General Family Medicine 02/11/21 Daina Judge CNP [address] [place], [place] [id number] Referring Internal Medicine 10/15/23 Claims Administrator Relationship Specialty Start Date End Date Raul Sun MD PCP - General Family Medicine 02/11/21 Daina Judge CNP [address] [place], [place] [id number] Referring Internal Medicine 10/15/23 Goals (unrecognized section and content) Goals may be documented in a n alternate section (unrecognized sect ion and content) No Status Records FoundNo Status Records FoundNo Status Records FoundNo Status Records FoundNo Status Records FoundNo Status Records FoundNo Status Records Found INFORMATION SOURCE (unrecogn ized section and content) DATE CREATED AUTHOR 07/29/2022 [facility] DATE CREATED AUTHOR AUTHOR'S ORGANIZ ATION 10/28/2022 [facility] DATE CREATED AUTHOR AUTHOR'S ORGANIZ ATION 12/01/2022 [facility] DATE CREATED AUTHOR AUTHOR'S ORGANIZ ATION 01/01/2024 [facility] DATE CREATED AUTHOR AUTHOR'S ORGANIZ ATION 06/06/2024 [facility] DATE CREATED AUTHOR AUTHOR'S ORGANIZ ATION 07/08/2024 [facility] DATE CREATED AUTHOR AUTHOR'S ORGANIZ ATION 09/21/2024 [facility] FOR RECORDS PERTAINING TO PATIENTS WHO [...] BE BASED ON THE PRIMARY CLINICAL RECORDS. [facility] [employer] [facility]. provides no warranty or guarantee of the accuracy or completeness of information in this document.
--- NOTE | 2024-10-03 15:37 | PM.CN ---
Consult Note: HPI Data of Consult Patient: known to practice within the last 3 years Requesting Physician: Alicia Ramirez NP Primary Care Provider: ENOC JUDGE Consult Narrative Reason for consult: f/u Narrative: Moses Martin a 73 year old male presents for evaluation of chronic right hip pain. Patient unsure if previous injections were helpful however he no longer has right hip/groin pain, biggest complaint is intermittent stabbing pain in low back into right thigh. Pain today 0/10 at worst 4/10 with standing walking and stairs. pt unsure if he is taking diclofenac, has stopped flexeril as it was not helpful. cc:: CC: Alicia Ramirez NP Review of Systems ROS Status of ROS 10 or more systems reviewed and unremarkable except as noted in history and below [facility] Medical History (Updated 05/18/24 @ 20:50 by Devon Villafuerte MD) Smoker ?F17.200 - Nicotine dependence, unspecified, uncomplicated (ICD-10) Hypertension ?I10 - Essential (primary) hypertension (ICD-10) Surgical History H/O hernia repair ?Z98.890 - Other specified postprocedural states (ICD-10) ?Z87.19 - Personal history of other diseases of the digestive system (ICD-10) H/O detached retina repair ?Z98.890 - Other specified postprocedural states (ICD-10) ?Z86.69 - Personal history of other diseases of the nervous system and sense organs (ICD-10) Meds Home Medications and Allergies Home Medications ?Medication ?Instructions ?Recorded ?Confirmed ?Type atenolol 50 mg tablet 50 mg PO DAILY 12/09/23 12/26/23 History atorvastatin 10 mg tablet 10 mg PO DAILY 12/09/23 12/26/23 History buspirone 10 mg tablet 10 mg PO BID 12/09/23 12/26/23 History cyclobenzaprine 10 mg tablet 10 mg PO TID 12/09/23 12/26/23 History diclofenac sodium 75 mg 75 mg PO Q12H 12/09/23 12/26/23 History tablet,delayed release furosemide 20 mg tablet 20 mg PO DAILY 12/09/23 12/26/23 History loratadine 10 mg tablet 10 mg PO DAILY 12/09/23 12/26/23 History losartan 50 mg tablet 50 mg PO BID 12/09/23 12/26/23 History metformin 500 mg tablet 500 mg PO BID 12/09/23 12/26/23 History trazodone 150 mg tablet 150 mg PO BEDTIME 12/09/23 12/26/23 History Allergies Allergy/AdvReac Type Severity Reaction Status Date / Time Penicillins Allergy Severe Verified 12/26/23 10:24 Exam Constitutional Documenting provider has reviewed patient's vital signs: yes Common normals: no apparent distress, oriented x3, healthy appearing, alert and well nourished General appearance: cooperative [facility] Common normals: normocephalic, hearing grossly normal bilaterally and moist oral mucous membranes Head and scalp: normocephalic Eye Common normals: PERRL Pupil: PERRL Neck & C-Spine Common normals: full ROM General: normal visual inspection Chest Common normals: inspection of chest normal Respiratory Common normals: normal respiratory effort, no retractions and no use of accessory muscles Back & Pelvis Lumbar spine/lower back: normal to inspection, lumbar ROM normal and straight leg raise negative bilaterally Other: mild pain with internal and external log roll of right hip sensation intact BLE strength 5/5 in BLE Extremity Common normals: full ROM Other: edema noted to LLE, patient reports this is chronic Neuro Common normals: oriented x3, CN's II-XII intact bilaterally, moves all extremities, no focal motor deficits, no sensory deficits noted and deep tendon reflexes 2+ bilaterally Sensorium/orientation: alert Gait (neuro): assistive device used cane Motor exam: strength 5/5 throughout and no movement abnormalities noted Psych Common normals: mental status grossly normal, thought process normal, cooperative, affect normal, speech normal and activity/motor behavior normal Speech: normal speech Thought process: normal thought process Results Additional Findings Additional findings: If on a controlled substance or opioids, I have checked an [place] report on this patient and there are no aberrancies noted in the prescribing history.??If on a controlled substance or opioid a drug screen was completed and reviewed within the last year, and if there has not been a drug screen completed we ordered one today to monitor higher risk, state monitored pain medication use. As part of providing excellent, safe, comprehensive care, the following was completed at our patient's visit: 1. A medication reconciliation and review to ensure accurate knowledge of current/active medications, including asking our patients to inform us about any [id number] medications or herbal remedies/nutritional supplements/alternative remedies. 2. A review to specifically ensure our patients have had annual screening for screening for depression, screening for tobacco use, and screening for unhealthy alcohol use. For concerning screenings had a discussion with the patient, provided patient education, and recommended follow-up with primary care provider when appropriate. If patient noted with a risk of falling, they received education on strength, gait, and balance training to prevent future risk of falling. Portions of this note may have been carried over from the previous visit and updated as appropriate. Please note this office utilizes paper charting in addition to the electronic medical record. A list of current medications, vitals, and PMH is available there as the clinical staff outside of myself do not have access to [employer] charting during the clinic day operations. As part of providing quality comprehensive care the current medications, vitals, and PMH were reviewed in the paper chart. Assessment and Plan Assessment and Plan (1) Hip osteoarthritis: Qualifiers: Laterality: right Osteoarthritis type: primary Qualified Code(s): M16.11 - Unilateral primary osteoarthritis, right hip (2) Lumbago: Qualifiers: Chronicity: chronic Back pain laterality: right Sciatica presence: unspecified whether sciatica present Qualified Code(s): M54.50 - Low back pain, unspecified; G89.29 - Other chronic pain Plan MY stable 18% pain well controlled with stretching, modifying activity, and PRN nsaids f/u as needed
== END 2024-10-03 14:15 | disposition home or self-care (01) ==
PROVIDERS: PCP Nurse Practitioner Family; Visit Provider Nurse Practitioner
DX: M16.11 Unilateral primary osteoarthritis, right hip (principal); M54.50 Low back pain, unspecified; G89.29 Other chronic pain
CPT/HCPCS: G0463

== ENCOUNTER 2024-10-15 15:28 | Outpatient (OUT) | payer OTHER, SELFPAY ==
[2024-10-15 16:07] LABS: Anion Gap 11.8; BUN Creatinine Ratio 5.9; Calcium 8.7 mg/dL (8.5-10.1); Carbon Dioxide 27.6 mmol/L (21.0-32.0); Chloride 91 mmol/L (98-107); Estimated GFR (African America >60 (>=60 mL/min/1.73m^2); Estimated GFR (Non-African Ame 51 (>=60 mL/min/1.73m^2); Glucose 141 mg/dL (74-106); Potassium 4.4 mmol/L (3.5-5.1); Sodium 126 mmol/L (136-145)
== END 2024-10-15 15:29 | disposition home or self-care (01) ==
LOC: LAB 15:30
PROVIDERS: PCP Nurse Practitioner Family
DX: R60.9 Edema, unspecified (principal)
CPT/HCPCS: 36415; 80048

== ENCOUNTER 2024-11-02 15:33 | Outpatient (OUT) | payer MEDICARE, SELFPAY ==
--- OUTSIDE RECORDS SUMMARY | 2024-11-02 15:39 | XMS_ITS | CCD ---
Author Organization [facility] CliniSytx Care Team Providers Care [employer] Custodian Name Role Phone Raul Sun MD Primary Care Provider DAINA JUDGE Primary Care Physician MD Jf Walters Attending Provider AMMY Judge Primary Care Provider [phone] Daina Judge Primary Care Unavailable Jf Walters Attending Unavailable Jf Walters Admitting Unavailable SELENA ., DR RHOADES Admitting Unavailable WALTERS ., DR RHOADES Attending Unavailable DAINA JUDGE Primary Care Unavailable SELENA ., DR RHOADES Consulting Unavailable DAINA JUDGE Admitting Unavailable DAINA JUDGE Attending Unavailable DAINA JUDGE Primary Care Unavailable DAINA JUDGE Consulting Unavailable DAINA JUDGE Admitting Unavailable DAINA JUDGE Attending Unavailable DAINA JUDGE Primary Care Unavailable DAINA JUDGE Consulting Unavailable Jf WALTERS Attending Unavailable Jf WALTERS Attending Unavailable DAINA JUDGE S Referring Unavailable Jf WALTERS Attending Unavailable Jf WALTERS Admitting Unavailable Raul Sun MD Primary Care Provider [phone] Daina Judge CNP Unavailable [phone] Raul Sun MD Primary Care Provider [phone] Reanna LEONG, Trevor Kruger Attending Unavailable Reanna LEONG, Trevor Kruger Attending Unavailable RAUL SUN Primary Care Unavailable ALE NORIEGA Attending Unavailable RAUL SUN Primary Care Unavailable KENYON ANGEL Attending Unavailable RAUL SUN Primary Care Unavailable MARQUIS WEAVER Attending Unavaila ALE Antonio Attending Unavailable RAUL SUN Primary Care Unavailable MARQUIS WEAVER Attending Unavaila ble RAUL SUN Primary Care Unavailable ALE NORIEGA Attending Unavailable RAUL SUN Primary Care Unavailable RAUL SUN Primary Care Unavailable Unavailable Primary Care Provider Unavailfestus Judge MD, Reuben Lyons Primary Care Provider KAIA OLGUIN Attending Unavailable JUAN MANUEL CROW Attending Unavailable KAIA OLGUIN Attending Unavailable JUAN MANUEL CROW Attending Unavailable ROGERIO LANE Attending Unavailable JUAN MANUEL CROW Attending Unavailable BRANDON BRUMFIELD Attending Unavailable HILDA HA Attending Unavailable Allergies Allergy Classification Reported Allergen(s) Allergy Type Date of Onset Reaction(s) Facility (17 sources) Penicillins; Translations: [PENICILLINS] Drug Allergy 7 Rash [facility] (5 sources) Penicillin; Translations: [penicillin] Drug Allergy 2 Unknown skin reaction [facility] (1 source) Penicillins Drug allergy (disorder) 2 [facility] (8 sources) amLODIPine; Translations: [AMLODIPINE] Drug Allergy 4 Swelling [facility] Work Phone: (7 sources) Penicillin G Drug Allergy 3 Unknown [facility] (7 sources) Penicillins Drug Allergy 7 Other, Rash, Unknown [facility] Medications Current Medications Medication Drug Class(es) Dates Sig (Normalized) Sig (Original) [id number] 200 actuat albuterol 0.09 mg/actuat metered dose inhaler (17 sources) beta2-Adrenergic Agonist Start: 04-17-2023 albuterol HFA [...] mouth. clobetasol propionate 0.5 mg/ml topical cream (7 sources) Corticosteroid Start: 01-26-20 22 clobetasol (Temovate) [...] Comment on above: Take 1 tablet by [facility] every 12 hours. doxycycline monohydrate 50 mg oral capsule (20 sources) Tetracycline-class Drug Start: 01-26-20 24 End: 10-02-19 25 take 1 capsule by mouth once daily doxycycline (Monodox) 50 MG capsule Indications: Other rosacea Take 1 capsule, by mouth, once daily, 30 days 30 capsule 11 10/02/2024 Active Start: 01-25-2022 [facility] doxycycline (VIBRAMYCIN) 50 mg [...] tablet (20 sources) Loop Diuretic Start: 11-03-19 furosemide (LASIX) 20 mg tablet 11/02/2018 Active [...] mouth. naltrexone hydrochloride 50 mg oral tablet (20 sources) Opioid Antagonist Start: 11-03-19 naltrexone (TREXAN) 50 mg tablet 11/02/2018 Active potassium chloride 10 meq extended release oral capsule (9 sources) Start: 09-08-19 potassium chloride SR (MICRO-K) [...] Onset: 7 Chronic Diabetes mellitus with complications (2 sources) Polyneuropathy due to diabetes mellitus; Translations: [Diabetes [...] (3 sources) Depressive disorder 08-08-2019 Chronic Mycoses (2 sources) Pain in toe; Translations: [Tinea unguium] 07-05-2024 Episodic Other circulatory disease (2 sources) Spider nevus; Translations: [Nevus, non-neoplastic] 10-02-2024 Episodic Other connective tissue disease (2 sources) Capsulitis of metatarsophalangeal joint of right foot; Translations: [Other enthesopathy of right foot and ankle] 07-05-2024 Episodic Other diseases of veins and lymphatics (2 sources) Vascular insufficiency; Translations: [Venous insufficiency (chronic) (peripheral)] 07-05-2024 Episodic Other eye disorders (15 sources) Chorioretinal scar of left eye; Translations: [Unspecified chorioretinal scars, left eye] Onset: 7 11-10-2016 Chronic Other eye disorders (2 sources) History of xpriclr-eitqkeow-svfwnj (YAG) laser capsulotomy of lens; Translations: [Cataract extraction status, left eye] 06-06-2023 Episodic Other inflammatory condition of skin (9 sources) Rosacea; Translations: [Other rosacea] Onset: 3 01-25-2023 Chronic Other lower respiratory disease (2 sources) Other forms of dyspnea; Translations: [Other forms of dyspnea] Onset: 5 Episodic Other non-epithelial cancer of skin (2 sources) History of squamous cell carcinoma of skin; Translations: [Personal history of other malignant neoplasm of skin] 10-02-2024 Episodic Other skin disorders (2 sources) Lentiginosis; Translations: [Other melanin hyperpigmentation] 10-02-2024 Episodic Other skin disorders (2 sources) Seborrheic keratosis; Translations: [Other seborrheic keratosis] 10-03-2024 Episodic Other skin disorders (2 sources) Epidermoid cyst; Translations: [Epidermal cyst] 10-02-2024 Episodic Residual codes; unclassified (2 sources) Localized [...] Name Value Interpretation Reference Range Facility 36on 10-19-2024 36 Brandon Brumfield CNP Cardiology Hyponatremia Dx Progress Notes Brandon Brumfield CNP (Nurse Practitioner) Cardiology This follow-up is in response to the patient???s recent BMP and his request for a spironolactone refill, which prompted the lab evaluation. The patient???s serum sodium has now decreased to 126 mEq/L, reflecting worsening hyponatremia. Given his history of chronic alcohol use, beer potomania remains a strong consideration, though additional etiologies such as SIADH, volume overload secondary to underlying cardiac dysfunction, diuretic-induced sodium loss, or adrenal insufficiency must also be evaluated. I have ordered serum osmolality, urine osmolality, and urine sodium to differentiate between dilutional and renal sodium loss. TSH with reflex to Free T4 will be obtained to rule out hypothyroidism. Serial serum sodium levels will be trended with repeat BMP to monitor progression and response to management. The patient does not have an established emergency physician. Given the severity of hyponatremia and the potential for further decline, which may lead to neurological complications, a referral to nephrology is warranted for further assessment and long-term electrolyte management. I will continue to coordinate care and adjust management based on the results of this workup. Normal [facility] Orders Onlyon 10-19-2024 Orders Only [id number] Pan Leblanc 1950 M Date Provider Department Center 10/19/2024 BRANDON ALEXANDER Family History Problem Relation Age of Onset Coronary artery disease Father Stroke Father Family Status - Relation Status Age at Father [facility] Office Visiton 09-19-2024 Follow-up visit [id number] Pan Leblanc 1950 M Date Provider Department Center 09/19/2024 BRANDON ALEXANDER Family History Problem Relation Age of Onset Coronary artery disease Father Stroke Father Family Status - Relation Status Age at Father Level of Service:88598 MS OFFICE/OUTPATIENT ESTABLISHED MOD MDM 30 MIN [facility] CNPCaprice 05-31-2024 HIRON Telephone (UROLLN) -- GIANFRANCO LEBLANC ([id number]) 1950 M Date Time Provider Department 05/31/24 ALE NORIEGA During your visit today, we recorded the following information about you: Negrita Nicole 05/31/2024 3:56 PM Signed Jovita Glover Urol Schedulers Pool Please schedule patient for an MRI Prostate and then for an OV to follow per request! LVM for pt to call back and schedule MRI and follow up. Leticiahart sent. Paty Lacey 06/01/2024 11:10 AM Signed Julius Noriega- Spoke to patient Told Patient I was calling to get him scheduled for PSA and MRI with a follow up to see you. 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 Pt explained his Urology provider, Dr Barroso at [facility], scheduled him an MRI and he was unable to lie flat and complete the MRI so he does not believe he will be able to do this. Pt stated Dr Barroso has been monitoring his prostate and they did several biopsies for prostate. Patient DECLINED to schedule at this time stating that if/when he needs to see Dr Noriega, he will call. I told him the order for the MRI and PSA is in, so should he call, he can get it scheduled. Paty Lacey June 01, 2024 11:08 AM Ale Noriega MD 06/02/2024 10:52 PM Signed noted Please notify patient to follow up with his local urologist since he does not have a ride because his PSA is high PSA PSA, PERCENT FREE Latest Ref Rng <2.60 ng/mL % 07/25/2019 5.33 (H) 6 11/17/2023 10.58 (H) Ale Noriega MD Allergies As of Date: 05/31/2024 Noted [...] Encounter Status:Closed by PATY LACEY on 06/01/24 Normal [facility] CNPNon 05-25-2024 CNPN Telephone (UROLLN) -- GIANFRANCO LEBLANC ([id number]) 1950 M Date Time Provider Department 05/25/24 ALE NORIEGA During your visit today, we recorded the following information about you: Ale Noriega MD 05/25/2024 7:18 AM Signed Please notify patient his PSA is very high and he is at high risk of having prostate cancer. he needs to schedule his prostate biopsy unless he had it done else where PSA from [facility] on 05-18-24 = 16.17 (normal values 0-4) Can be done in office under local or in ASC under [facility] MD Sarthak Pham Nicole, LPN 05/25/2024 9:05 AM Signed Call placed to patient in regards to message below. LV for patient to return call back to [phone], in regards to his recent lab results and orders on how Dr. Noriega would like to proceed. Niya De León LPN 05/30/2024 9:07 AM Signed Call placed to patient in regards to message below. LVMM for patient to return call to [phone] in regards to lab results and how Dr. Noriega would like him to proceed OR to read the detailed message in his MYC. Niya De LeónSOBEIDA 05/31/2024 12:02 PM Signed Called and spoke to patient in regards to message below. Patient stated that he would like to speak to the doctor before making any decisions. Spoke with Dr. Noriega and he stated since the patient doesn't have a vehicle or know how to use MYC, that he can be scheduled for a telephone visit today at 2pm. Patient agreed and was scheduled as above stated. Allergies As of Date: 05/25/2024 Noted Allergy Reaction PENICILLINS 11/03/2016 2 - Rash Date Reviewed: 12/27/2023 Reviewed by: Marquis Weaver, JOEL - Fully Assessed Reason for Visit: Results [...] eye [H35.62] 06/27/2023 Encounter Status:Closed by ALE NORIEGA on 05/25/24 Normal [facility] Office Visiton 02-09-2024 Follow-up visit [id number] Pan Leblanc 1950 M Date Provider Department Center 02/09/2024 HILDA OLIVO CARD [facility] Family History Problem Relation Age of Onset Coronary artery disease Father Stroke Father Family Status - Relation Status Age at Father Level of Service:92879 MS OFFICE/OUTPATIENT ESTABLISHED LOW MDM 20 MIN [facility] OCT MACULA CIRRUS OU (BOTH E YES)on 12-27-2023 [facility] Radiology Study observation (narrative) [facility] CNPCaprice 12-08-2023 CNPN Telephone (ABDULKADIR) -- GIANFRANCO LEBLANC ([id number]) 1950 M Date Time Provider Department 12/08/23 ALE NORIEGA During your visit today, we recorded the following information about you: Ale Noriega MD 12/09/2023 7:57 AM Addendum Phone visit unsuccessful and had only VOICE MAIL X 2 I DID NOT LEAVE A MESSAGE Please notify patient that his PSA is rising from 9 to 10.6 He needs prostate bx Can be done in office under local anesthesia or in ASC under MAC ( [facility]) 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 Can you try reaching him again with this information? Thank you, Yue Haley, Hilda Mckeon RN 12/14/2023 10:08 AM Signed Spoke with patient at this time; identified by name and . Discussed with patient below information from Dr. Noriega, as well as the process of the prostate biopsy. Advised patient that I will also sent message with detailed information about prostate biopsy. Patient advised that Dr. 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 Performed By: #### 2 [id number] #### [facility] CLIA [id number] [address] [place] [address] [place] [address] [place] CNOVon 10-24-2023 CNOV Office Visit (UROLLN ) -- GIANFRANCO LEBLANC ([id number]) 1950 M Date Time Provider Department 10/24/23 2:40 PM ALE NORIEGA During your visit today, we recorded the following information about you: Pulse Blood pressure Weight 79/minute 157/66 97.5 kg Raven Babcock 10/24/2023 3:09 PM [place] [address] 72 year old male with nuclear sclerotic [...] 2007 Retinal detachment, left eye, repaired in [place], [place] PAST SURGICAL HISTORY OF hernia sx, [...] nontender, w/o nodules. Good anal sphincter tone. [facility] SYMPTOMS SCORE. Date 10/24/2023 1. [...] (more content not included)... [facility] (Inserted Image. Prema ble to display) November 30, 2022 GIANFRANCO LEBLANC [address] [place] [address] GIANFRANCO LEBLANC 1950 Dear Gianfranco Leblanc, [facility] has been trying to reach you concerning the recent results of your PSA level done 10/26/22 9.32. Your PSA level is elevated and Dr. Walters is recommending you have a Prostate biopsy done under anesthesia to rule out prostate cancer. A normal PSA level is 0- 4. The office has left several messages with no response from you concerning this matter. Please call the office with in 2 week of receipt of this letter to get this outpatient procedure scheduled. Sincerely, Jf Walters M.D., F.A.C.S. [facility] [address] [place], [place] [address] , OPTION #3 SENT REGULAR/CERTIFIED MAIL [facility] Coding Summary.on 10-27-2022 Coding Summary. CD:[id number] Gh0bWw +PGhlYWQ+DO2QOWCjM73pfCSky M2mD5QUDDoKWlbjVVIUMQcKBlM ojlIxZZ1aiTCeUJWx IC8+OE5eOPTsNnrjgDCrw5T7dA J1X38qtc7yFFtbeWN5PXTdNwBe hagre4xjjSj8NWrvLzvlJzYq ZDGedF84FXR9nR35Sr08pDGfzF Ock9ssxVy0NyVdBTXoDID8gBed JWcbr7BqWAXxA20tyXGsw2B9 IFFqnXtzfMWwFwZrjTJ6wM5iSI rozmoze7obdhhyFtk5af11mMNw s3N7lTJ1U5TccyM1IXFkuMOd WwezzJOCtX2cggghg2jaywkaYw QtSNOzBRc7SHe5ZUHweIzcCrBy PC42ZJO8JKJbpzPcA0YeFQLu yMvjGyN8y1J5Ug4MK1STKphzB6 VNTUFSWTwvdGQ+IS80tx49M6Go NesbEvh1BHZtMTJ0nOI7dA8f RBRtNAzxf6C6wDG8F5BvtxNgcv 9bc1drYVAcFByzU37xmSBoi0A6 TDQdgXB9HYNujHrrErWvtL88 Oyc+WDXkgYqjs6MqUoyea2lro7 lqoEb4FvguQESyuwXtnNprZYU7 d8GvQg0jNMOxaHB2gYD4aN5s GpBvWjT8GRcfX302AiZfhPMsDm biU43uX5CwdRV+PCQdPth7MENc oJtqVX7pG6TwUKNqrfjgoZWv fDjjSR2eFUDljxehXGGzuB9oWY TaU7r2YfGpBhO6LUokB6YrXEAj smnyZn70pY3qZwZwCvQ9AAqu G1ZvnnE1XPOilCUxDJyqJGS1C0 2kx6Q3EJQzBBOoHRI8mAY3qS7c bGlnbjogbGVmdDsgdmVydGlj OYvtEFssL963KBOajVfrQvPnEE luZyBEYXRlOiAgMDMvMDgvMjAy MzwvdGQ+BCTmTDG2zJsdFSZu vMNoDRjfFp3kaAvmmFrfST8zLI HpapecNWIjoN3bGJIfoCCrqAfe XA6jGWYndzwkc922KdMrXEU2 HWZwoCXnG1HlgD0mMyEtSDDsEY NnS0GivFRjHHhrO122CVzrVrB4 VDMucfKiG5BxJDAdrJljYzE8 f8L8Ap0Je5NbnzwrO9HcoZZvSa FxRbnmAId6N8DlRkdctHY+PC90 CPIfFX77RAs9IZM2sAonQPnm XFVsJ2CgpU7pDiDtVGXvHHDxNz c+PHRhYmxlIHdpZHRoPScxMDAl LmDxjGhbGD2hEp6aFOSfNVSg yAqdlRTdHoQip6sxIEUvQFapXK 6afDdfV5ZhjUU6JONnr5d8Tn29 M34yD6RwoDM+KKCpdEH2aPW8 eG5kHkZhSeB8TObnJ440XeQbwG CaJrmcg3xkk2azaHo6BcE4HWKv lgZcwQydBGU0f5ShLx01N71k IHdpZHRoPSIxNSUiIHZhbGlnbj 0miF2eXj0+MGQamFQ6zBO3gX0i HxTwFqF6PUquW486FvOwkSOa Kwmyj5phz3cveUu8GpPgUTSwhz JnyHubTSJ3j4XsCy73P3WkjWmc g9CiJzk3vp74bEUfe8F8oLF7 P4GxOVLsfnvqyYQswKeqKW8hEB SaqxgfLKOubQ3rJIJrA5g5MzRc DhH3LRgsR2ThlaV3QYAduFRv SQLhuNMZnI9obcgho1ffdukqZy DaGKJjWBt6WFd1XYLumKzlPiEu VGM0DhU7WZO9lQHksW5irSkv toglcH3vYws+BGG9aXJolEYETD 1lOjwvdGQ+VFYjLUJ7lCloLLcz WCVgxZ5zBKYrQ0t0PjXjRiT4 XFwnI3VyvyI9QXOpsAYgKIXblE RGeX9zjjbnb3eavyzjGwNnGMOc JAz2IDw5UWUxhEuhIqCvVOF5 JoT3ABJ3mVZurX1zzJehozdbzY 9wOyc+OzeruClfLYF6EBw5U9Tg Vao0PWTpfMlzID8wkHEtSQex Yy7elMmjrZpmDS9kFUZrzxkel3 13MkUjz4ltSDIyyWWrAFfaQPK5 T02jp4I1NKYkVJEdNQE3xGO9 gM9joRiqjsfwkOGpyMmdpiUlwV kjBIzgJHjlT468PFNcdWvpYqJy HYh7F8HbIyt3XXFpbKkbGO9f rCVcUPltVi3pxHpoeMefVD4jZJ Ggllyha778JbKxj7ztGWTrlJNc SWaoMJV9G69xu3F7UUNsXRSv IYV7sQT4zF3waBgpcxpabRJrmR cubiYuiHcvTAsnDTpwG610XKKu aYnaQwQpzNz1P6QxPpn4ZBNo nHurBD1rxXHtGQmqJq5clNhuoT twRW6nXOAfyyzxm196KgBgm2gg DJFqiMYxRMleNTE2V67hv3I2 RNUnYTGzVFQ5cYD3pY6bxYbqow ogbGVmdDsgdmVydGljYWwtYWxp A382ZBUryIbkSpIlkEttpgDm UObcCBf1Z0ByGacefNO+PC90YW YqRW09sFPloFLtk8ipuCl3DpIt SEBpRMN8yPziATzsj6LzYMHy B45lnHDlo9M5TOCfqSoazXLtNo YepPY7eJ9zVDmemzkqz0euayuq Xlgou5eqds84eS83V91kWAna UTEuCPBpDKAiYZAstJvjyh5wpK 9wIi8+CETyeOC7zFS2jE4eWZVx XhA8LOskD566SbYjeLGrArdu i7hsa5qigFs5MoD7ZZAyrtCzoE xiXAR6w0PeQk81F38nCPzhHECp MBFqFKDpRRZrkAmkwz9geN0i Ii8+DPXocIC2oPR8eX7vKfHsSq X3FMzsC720XbTiyRNrXkyzP50j P4HviWT+FAMdApt6RUTlwJuk QB8tgXSwEAlaYd7wFRR0ShNxFt VvIVdjN0KuCFTyjwwfokjphAW6 VHMfPEDcyD23Xz2zqLfwJJFq iNJDdR3bdsvbd0ksclszEwTdGZ OlWDu5MXy7HYWjfFozBrYlSZI2 BbS5ZQB2jFPywZ6fyOzdxzby bV7fE8BdZPNkqckjQc03dG6eTm KlLmY0BBipDoq+UFVMTEFOTywg VcuOA5iZXyckhQU+PHRkIHN0 uIzyTMbdOOJxfV3uNVXtT4g9Og AwGeG4SMhuZ0GfOBNvwvwcZa47 vG4gPyZmRuT0HYicP7VxipS2 VFHfmUIcAZjaGWA4U33ur0R5DD MxKPEgWVM5xQB2tT9zjNqgnwas bGVmdDsgdmVydGljYWwtYWxp V638RDBbnQfiRtU4JqU9CvU4HY K0G6InUfd1NZGkjRihKQ2uaECs CHuaPt9mqSzzzXouYS0sEXWw dcvxODCnzF5vDWWuhMHouKplBI 1lZMVuldpxo170OpBlWJX5SKDs hJKfI3BllY4vNdWdAAMnONEr V4DffQXfLRyxW202FVhfRaY0XN LskiDiF1JaGGYukLvpTdP5t5U6 Bv87LkSZNWJmetjwrCX+PHRk EXU4qXmqXJdyASUzcT8nXACkU3 u5YyIxBcW1KOucS5MeZNXomijb Ut13oE6wGpRwCaB7TDvqK7Jh fvO4NZNskUBbUQxbGCW5N87lo3 F3QHKmGBPuSJA3wGB1dH0lmHiv bjogbGVmdDsgdmVydGljYWwt BImvV183MNSizJluAb4btNH7C7 QdHnf7GLMwgNowWA5gcGOkZNhz Mz6gkLwdoNnbGY1sZVDafzxp KZWweE3iABBfpEFynRuoYS3bWH Kuxlqty058IfFgJYZ8JPTnsPCe E8EvjN2dXtVnEYAqXNAyF4Ob lGKpISnjU353JFdqOmD4YLHclv OyP5KpVFXviLbrCfX6v7M8Ju5W MIWlUJPdtHStNkE0C5OjEoxv dHI+QY31OHCrDA95qMYopWQyu7 caePy8TaEmWFFvKWN3mFmvRQup s1UoFXKhN40vjFFdb6X6BFWu aCyslURzTwXkdWG5kZ2aZOdlyo qwl4yuqtduUgask4quuv73oO12 F15iHMslOPBiFWSfCZYiZWUa pKnpme2lsB7cUb7+ZPXvaPJ0sR F1bG6yMySfBoT4SYyrO186ZzWd yNZhAoudc2ell7phhVs5VrUl RGWaokTxrQbpPEB0m9TiUb06M4 9sIHdpZHRoPSIyMCUiIHZhbGln ra2mtL0gCk6+QV5oe6tcio73 cN64jGK+VYHuLQB3pFfnGYnaGT CzyA4uZGbkQpV1KZOvOkEdkE16 pQMiTDiaKr8ruForvEgdCF9i LGYmfhkmi682VeXzy0piQUHgnZ HxTCreGMN2J73oj4W3ZRCnRHGj IUD8nAF6bB7iaRysosqglLQq cNgheoEviLnpJKgaZUlpL257WV CieDyrVoNjbAFwZ5amvyZGNB4w OjwvdGQ+TCMoMDB1pTtzEIpq XPTxmZ4jIHLuH8i9GsBeLxC9VZ fxG2CcjeC2GTLvcGIqVZNktBTQ zT8sygkyr0rppdlwWnLuHMAs MXa0NMu2YUZgtNtwTqJaEXF5Lv T6SHY6qTEskJ3ezHxpitgjrJ3n Oyc+RklOOjwvdGQ+PHRkIHN0 gKowLLhzMJFxxV1pXROpA5z8Qu RgQeR8WScbW4YymtE4UERblOEt IORyhXICqX9ldkbpc1gqppqc OgGaMBHoSEv5ZBu5BBEfnQumKd OlAJH9EoY1DPH6uRPtgA2rrRna dazqgJ7cDqc+TVJOOjwvdGQ+ AFAiNTT7ySzoZEqqESLjdY3qYP ZwF2c2YnGwFpA8CDtiZ3MyweK0 ZDLhvJDiCVAgsLIByO4deteq z8ziofnvMsKcKJFgFUw4KPu3PL ApqWbgSwHuANB9YkR8WRR3zBCv zQ4cbEcfdumlnL0jEga+UGF5 NFP1RM87GY02L6DdUuubpRSpfI U+PHRhYmxlIHdpZHRoPScxMDAl MxNwmQkxWQ3xRe5uAPEoMLRn bGxh (more content not included)... Normal [facility] Lab Reportson 10-27-2022 Lab Reports [id number] Normal [facility] Ambulatory Visit Summaryon 0 10-15-2022 Ambulatory Visit Summary GIANFRANCO LEBLANC :1950 Visit Date:10/15/2022 Ambulatory Visit Instructions Your Diagnosis Elevated PSA Benign prostatic hyperplasia (BPH) with post-void dribbling Tests Performed Urnls Dip Stick Auto w/o Microscopy POC 94250 Your Care Team Attending Physician - Jf WALTERS MD Primary Care Physician - DAINA JUDGE [...] Appointments Follow Up with SELENA LEONG, Jf R, URL When: Where: [address] [place] [address]- Medications What When Instructions Unchanged amlodipine (amLODIPine [...] Urnls Dip Stick Auto w/o Microscopy POC 64459 (10/15/2022) Bilirubin Urine Dipstick - Negative Blood Urine Dipstick - Negative Glucose Urine Dipstick - Negative Ketones Urine Dipstick - Negative Leukocytes Urine Dipstick - Negative Nitrite Urine Dipstick - Negative Protein Urine Dipstick - Negative Specific [place] Urine Dipstick - 1.010 Urine Appearance Urine [...] of these risk factors: ? Being of -[place] descent. ? Having a family history of prostate cancer. ? If you are age 55?69, talk with your health care provider about (more content not included)... Normal [facility] Patient Educationon 10-15-19 Patient Education Oncology [...] of these risk factors: ? Being of -[place] descent. ? Having a family history of [...] Are older than age 55. ? Are -[place]. ? Have a father, brother, or uncle [...] R (more content not included)... Normal [facility] Urology Office/Clinic Noteon 10-15-2022 Urology Office/Clinic Note [...] and history for this patient from Dr. Walters. I have reviewed and verified the staff [...] Contact Information SELENA LEONG, Jf Reis, URL [address] [place] [address]- Additional Instructions: PSA today - await results Patient Education Prostate Cancer Screening I, Dori Wynne, personally scribed for Dr. Walters on 10/15/2022 11:17:13. . Documentation recorded by the scribe, Dori Wynne, accurately reflects the services(s) I performed and decisions made by me. Authenticated by Dr. Walters on 10/15/2022 11:23:49. Problem List/Past Medical History [...] Father. Immunizations Vaccine Date Status Comments SARSCoV2 mRNA(jiwpvoofc-aspt-rlmckt ) vac 03/12/2022 Recorded 2022-06-28: [id number] SARS-CoV-2 [...] Dipstick: Negativ (more content not included)... Normal [facility] Comment on above: Result Comment: Elec tronically Signed By: Jf WALTERS MD\.br\Date and Time Signed: 10/15/22 11:23 EST\.br\Electronically Co-Signed By: Dori Wynne\.br\Date and Time Co-Signed: 10/15/22 11:19 EST\.br\Electronically Co-Signed By: Dori Wynne\.br\Date and Time Co-Signed: 10/15/22 11:21 EST Creatinine (Bld) [Mass/Vol]O rdered By: Jf Walters on 07-14-2022 Creatinine [Mass/Vol] 0.8 mg/dL 0.6-1.3 [facility] Comment on above: ER/ESD physician is notified/shown all ISTAT results.Critical values may be confirmed by laboratory testing ifdeemed necessary by ER attending doctor. ISTAT XRay CREon 07-14-2022 Creatinine [Mass/Vol] 0.8 mg/dL Normal 0.6-1.3 [facility] Comment on above: Result Comment: ER/E SD physician is notified/shown all ISTAT results. Critical values may be confirmed by laboratory testing if deemed necessary by ER attending doctor. Performed By: #### I SCRE #### [facility] [address] [place] [address] Point of Care testing , ISTAT GFR ( > 60 Normal [facility] Comment on above: Result Comment: GFR estimated reference range: According to KDOQI guidelines, <60 ml/min/1.73m2 is sufficient to diagnose a patient with chronic kidney disease. PERFORMED BY: [place] [address] PATHOLOGIST [employer] CRANBERRY MADELYN LAIRD M.D. Performed By: #### I SCRE #### [facility] [address] [place] [address] Point of Care testing , ISTAT GFR (Non- Am > 60 Normal [facility] Comment on above: Performed By: #### I SCRE #### [facility] [address] Point of Care testing , No Panel InformationOrdered By: Jf Walters on 07-14-2022 POC Estimated GFR > 60 [facility] Comment on above: GFR estimated refere nce range: According to KDOQI guidelines, <60 ml/min/1.73m2 is sufficient to diagnose a patient with chronic kidney disease. POC Estimated GFR Non- Amer > 60 [facility] Pre-Certification Formon Pre-Certification Form [id number]#[id number]:127 Normal [facility] Lab Reportson 07-05-2022 Lab Reports [id number]#[id number]:127 Normal [facility] Physician Referralon Physician Referral [id number]:127 Normal [facility] Ambulatory Visit Summaryon 1 08-28-2021 Ambulatory Visit Summary GIANFRANCO LEBLANC :1950 Visit Date:06/28/2022 Ambulatory Visit Instructions Your Diagnosis Elevated PSA Benign prostatic hyperplasia (BPH) with post-void dribbling Tests Performed MRI Pelvis (Soft Tissue) w/ + w/o contrast -- Results Pending -- Please visit your patient portal for your results or contact your primary care physician. Your Care Team Attending Physician - Jf WALTERS MD Primary Care Physician - DAINA JUDGE [...] Schedule the Following Appointments Follow Up with SELNEA LEONG, STEFANI Seo When: Where: [facility] [address] , [place] [address] [phone] Medications What When Instructions Unchanged amlodipine (amLODIPine [...] prostate gland (more content not included)... Normal [facility] Historical Records Officeon 06-28-2022 Historical Records Office [id number]:127 Normal [facility] Patient Educationon 06-28-20 Patient Education Urology [...] Follow these instructions at home: ? Take iers-gnm-jzgrcci and prescription medicines only as told by [...] You d (more content not included)... Normal [facility] PSA, FREE AND TOTAL RATIOon 05-21-2022 % Free PSA 7.1 % [facility] Comment on above: Result Comment: [...] men. Performed By: #### P SAFREE #### [facility] [address] [place] [address] Dr. Zaira Benoit Prostate specific Ag [Mass/Vol] 6.8 ng/mL Critically high 0.0-4.0 [facility] Comment on above: Result Comment: Bryant SEXTON methodology. . According to the [employer] [employer], Serum PSA should decrease and [...] disease. Performed By: #### P SAFREE #### [facility] [address] [place] [address] Dr. Zaira Benoit PSA, Free 0.48 ng/mL Normal N/A [facility] Comment on above: Result Comment: Bryant woodruff ECLIA methodology. Performed By: #### P SAFREE #### [facility] [address] [place] [address] Dr. Zaira Benoit INSULINon 05-13-2022 Insulin 7.8 uIU/mL Normal 2.6-24.9 [facility] Comment on above: Performed By: #### I NSULIN #### [facility] [address] [place] [address] Dr. Zaira Benoit CBC AUTO DIFFon 05-12-2022 BASO # 0.1 103/ul Normal 0.0-0.1 [facility] Comment on above: Performed By: #### C BC #### [facility] [address] [place] [address] Dr. Zaira Benoit Basophils/100 WBC (Bld) 0.9 % Normal 0.2-2.0 [facility] Comment on above: Performed By: #### C BC #### [facility] [address] [address] [address] Zaira Benoit EO # 0.2 103/ul Normal 0.0-0.7 [facility] Comment on above: Performed By: #### C BC #### [facility] [address] [place] [address] Dr. Zaira Benoit Eosinophils/100 WBC (Bld) 2.1 % Normal 0.9-7.0 [facility] Comment on above: Performed By: #### C BC #### [facility] [address] [place] [address] Dr. Zaira Benoit Erythrocyte distribution width (RBC) [Ratio] 13.2 % Normal 11.0-15.0 [facility] Comment on above: Performed By: #### C BC #### [facility] [address] [place] [address] Dr. Zaira Benoit Hematocrit (Bld) [Volume fraction] 46.6 % Normal 42.0-54.0 [facility] Comment on above: Performed By: #### C BC #### [facility] [address] [place] [address] Dr. Zaira Benoit Hemoglobin (Bld) [Mass/Vol] 15.5 g/dL Normal 14.0-18.0 [facility] Comment on above: Performed By: #### C BC #### [facility] [address] [place] [address] Dr. Zaira Benoit IG # 0.02 10e3/ul Normal 0.00-0.03 [facility] Comment on above: Performed By: #### C BC #### [facility] [address] [place] [address] Dr. Zaira Benoit IG % 0.3 % Normal 0.0-0.5 [facility] Comment on above: Performed By: #### C BC #### [facility] [address] [place] [address] Dr. Zaira Benoit LYMPH # 2.6 103/ul Normal 1.2-3.8 [facility] Comment on above: Performed By: #### C BC #### [facility] [address] [address] [address] Zaira Benoit Lymphocytes/100 WBC (Bld) 36.9 % Normal 20.5-60.0 [facility] Comment on above: Performed By: #### C BC #### [facility] [address] [place] [address] Dr. Zaira Benoit MANUAL DIFF REQ NO Normal [facility] Comment on above: Performed By: #### C BC #### [facility] [address] [address] [address] Zaira Benoit MCH (RBC) [Entitic mass] 33.2 pg Normal 25.9-34.0 [facility] Comment on above: Performed By: #### C BC #### [facility] [address] [place] [address] Dr. Zaira Benoit MCHC (RBC) [Mass/Vol] 33.3 g/dL Normal 29.9-35.2 [facility] Comment on above: Performed By: #### C BC #### [facility] [address] [place] [address] Dr. Zaira Benoit MCV (RBC) [Entitic vol] 99.8 fL Critically high 80.0-94.0 [facility] Comment on above: Performed By: #### C BC #### [facility] [address] [place] [address] Dr. Zaira Benoit MONO # 0.6 103/ul Normal 0.3-0.8 [facility] Comment on above: Performed By: #### C BC #### [facility] [address] [place] [address] Dr. Zaira Benoit Monocytes/100 WBC (Bld) 9.1 % Normal 1.7-12.0 [facility] Comment on above: Performed By: #### C BC #### [facility] [address] [place] [address] Dr. Zaira Benoit NEUT # 3.6 103/ul Normal 1.4-6.5 [facility] Comment on above: Performed By: #### C BC #### [facility] [address] [place] [address] Dr. Zaira Benoit Neutrophils/100 WBC (Bld) 50.7 % Normal 43.0-75.0 [facility] Comment on above: Performed By: #### C BC #### [facility] [address] [address] [address] Zaira Benoit Platelet mean volume (Bld) [Entitic vol] 9.3 fL Critically low 9.5-13.5 [facility] Comment on above: Performed By: #### C BC #### [facility] [address] [address] [address] Zaira Benoit PLT 191 103/ul Normal 150-450 [facility] Comment on above: Performed By: #### C BC #### [facility] [address] [address] [address] Zaira Benoit RBC 4.67 106/ul Critically low 4.70-6.[address] [facility] Comment on above: Performed By: #### C BC #### [facility] [address] [address] [address] Zaira Benoit WBC 7.0 103/ul Normal 4.0-11.0 [facility] Comment on above: Performed By: #### C BC #### [facility] [address] [address] [address] Zaira Benoit GLYCOHEMOGLOBIN A1Con 2021 ADA RECOMMENDATION SEE BELOW Normal [facility] Comment on above: Result Comment: ADA RECOMMENDED LIMIT 4.0 - 6.0 ADA THERAPEUTIC TARGET < 7.0 ACTION SUGGESTED > 7.0 Performed By: #### A 1C #### [facility] [address] [address] [address] Zaira Benoit Glucose [Mass/Vol] 151 mg/dL Normal [facility] Comment on above: Performed By: #### A 1C #### [facility] [address] [address] [address] Zaira Benoit HbA1c (Bld) [Mass fraction] 6.9 % Critically high 4.5-6.2 [facility] Comment on above: Performed By: #### A 1C #### [facility] [address] [address] [address] Zaira Benoit LIPID PROFILEon 05-12-2022 CHOL-HDL RATIO NORM SEE BELOW Normal [facility] Comment on above: Result Comment: 3.3 - 4.4 LOW RISK 4.4 - 7.1 AVERAGE RISK 7.1 - 11.0 MODERATE RISK >11.0 HIGH RISK Performed By: #### L IPID, URIC, CMP #### [facility] [address] [address] [address] Zaira Benoit Cholesterol [Mass/Vol] 132 mg/dL Normal <=200 [facility] Comment on above: Performed By: #### L IPID, URIC, CMP #### [facility] [address] [address] [address] Zaira Benoit Cholesterol in HDL [Mass/Vol] 53 mg/dL Normal 40-60 [facility] Comment on above: Performed By: #### L IPID, URIC, CMP #### [facility] [address] [address] [address] Zaira Benoit Cholesterol in LDL [Mass/Vol] 59.6 mg/dL Normal [facility] Comment on above: Performed By: #### L IPID, URIC, CMP #### [facility] [address] [address] [address] Zaira Benoit Cholesterol.total/Ch olesterol in HDL [Mass ratio] 2.5 {ratio} Normal [facility] Comment on above: Performed By: #### L IPID, URIC, CMP #### [facility] [address] [address] [address] Zaira Benoit HDL NORMAL > or = 60 mg/dl - LO W CARDIOVASCULAR RISK <40 mg/dl - HIGH CARDIOVASCULAR RISK Normal [facility] Comment on above: Performed By: #### L IPID, URIC, CMP #### [facility] [address] [place] [address] Dr. Zaira Benoit LDL CALC NORMAL SEE BELOW Normal [facility] Comment on above: Result Comment: <100 mg/dl OPTIMAL 100 - 129 mg/dl NEAR OR ABOVE OPTIMAL 130 - 159 mg/dl BORDERLINE HIGH 160 - 189 mg/dl HIGH >190 mg/dl VERY HIGH Performed By: #### L IPID, URIC, CMP #### [facility] [address] [address] [address] Zaira Benoit Triglyceride [Mass/Vol] 97 mg/dL Normal <=150 [facility] Comment on above: Performed By: #### L IPID, URIC, CMP #### [facility] [address] [address] [address] Zaira Benoit VLDL CALC 19.4 mg/dL Normal [facility] Comment on above: Performed By: #### L IPID, URIC, CMP #### [facility] [address] [address] [address] Zaira Benoit PROF 14(COMP METB)on 022 Albumin [Mass/Vol] 3.9 g/dL Normal 3.4-5.[address] [facility] Comment on above: Performed By: #### L IPID, URIC, CMP #### [facility] [address] [address] [address] Zaira Benoit Albumin/Globulin [Mass ratio] 1.1 {ratio} Normal [facility] Comment on above: Performed By: #### L IPID, URIC, CMP #### [facility] [address] [place] [address] Dr. Zaira Benoit ALP [Catalytic activity/Vol] 92 U/L Normal 46-116 [facility] Comment on above: Performed By: #### L IPID, URIC, CMP #### [facility] [address] [address] [address] Zaira Benoit ALT [Catalytic activity/Vol] 31 U/L Normal 16-63 [facility] Comment on above: Performed By: #### L IPID, URIC, CMP #### [facility] [address] [place] [address] Dr. Zaira Benoit Anion gap [Moles/Vol] 12.2 mmol/L Normal [facility] Comment on above: Performed By: #### L IPID, URIC, CMP #### [facility] [address] [place] [address] Dr. Zaira Benoit AST [Catalytic activity/Vol] 20 U/L Normal 15-37 [facility] Comment on above: Performed By: #### L IPID, URIC, CMP #### [facility] [address] [place] [address] Dr. Zaira Benoit Bilirubin [Mass/Vol] 0.4 mg/dL Normal 0.2-1.0 [facility] Comment on above: Performed By: #### L IPID, URIC, CMP #### [facility] [address] [place] [address] Dr. Zaira Benoit Calcium [Mass/Vol] 8.8 mg/dL Normal 8.5-10.[address] [facility] Comment on above: Performed By: #### L IPID, URIC, CMP #### [facility] [address] [place] [address] Dr. Zaira Benoit Chloride [Moles/Vol] 101 mmol/L Normal 98-107 [facility] Comment on above: Performed By: #### L IPID, URIC, CMP #### [facility] [address] [place] [address] Dr. Zaira Benoit CO2 [Moles/Vol] 29.3 mmol/L Normal 21.0-32.0 [facility] Comment on above: Performed By: #### L IPID, URIC, CMP #### [facility] [address] [place] [address] Dr. Zaira Benoit Creatinine [Mass/Vol] 0.88 mg/dL Normal 0.70-1.30 [facility] Comment on above: Performed By: #### L IPID, URIC, CMP #### [facility] [address] [place] [address] Dr. Zaira Benoit EGFR-AF CAY[place] ISLANDER >60 Normal >=60 [facility] Comment on above: Performed By: #### L IPID, URIC, CMP #### [facility] [address] [place] [address] Dr. Zaira Benoit EGFR-NON AF [place] ISLANDER >60 Normal >=60 [facility] Comment on above: Performed By: #### L IPID, URIC, CMP #### [facility] [address] [address] [address] Zaira Benoit Globulin (S) [Mass/Vol] 3.6 g/dL Normal [facility] Comment on above: Performed By: #### L IPID, URIC, CMP #### [facility] [address] [address] [address] Zaira Benoit Glucose [Mass/Vol] 128 mg/dL Critically high 74-106 [facility] Comment on above: Performed By: #### L IPID, URIC, CMP #### [facility] [address] [address] [address] Zaira Benoit Potassium [Moles/Vol] 4.5 mmol/L Normal 3.5-5.1 [facility] Comment on above: Performed By: #### L IPID, URIC, CMP #### [facility] [address] [address] [address] Zaira Benoit Protein [Mass/Vol] 7.5 g/dL Normal 6.4-8.2 [facility] Comment on above: Performed By: #### L IPID, URIC, CMP #### [facility] [address] [address] [address] Zaira Benoit Sodium [Moles/Vol] 138 mmol/L Normal 136-145 [facility] Comment on above: Performed By: #### L IPID, URIC, CMP #### [facility] [address] [address] [address] Zaira Benoit Urea nitrogen [Mass/Vol] 4.0 mg/dL Critically low 7.0-18.0 [facility] Comment on above: Performed By: #### L IPID, URIC, CMP #### [facility] [address] [address] [address] Zaira Benoit Urea nitrogen/Creatinine [Mass ratio] 4.5 mg/mg Normal [facility] Comment on above: Performed By: #### L IPID, URIC, CMP #### [facility] [address] [address] [address] Zaira Benoit URIC ACID SERUMon 05-12-2022 Urate [Mass/Vol] 7.5 mg/dL Critically high 3.5-7.2 [facility] Comment on above: Performed By: #### L IPID, URIC, CMP #### [facility] [address] [address] [address] Zaira Benoit No Panel Information [facility] Vital Signs Date Time Vital Sign Value Performing Clinician Facility 10-11-2024 14:24-0500 Body height 175.3 cm Juan Manuel Brown DPM Work Phone: [facility] 10-11-2024 14:24-0500 Body mass index (BMI) [Ratio] 29.53 kg/m2 Juan Manuel Brown DPM Work Phone: [facility] 10-11-2024 14:24-0500 Body weight 90.72 kg Juan Manuel Brown DPM Work Phone: [facility] 10-11-2024 14:24-0500 Respiratory rate 18 /min Juan Manuel Brown DPM Work Phone: [facility] 07-05-2024 13:49-0500 Body height 175.3 cm Juan Manuel Brown DPM Work Phone: [facility] 07-05-2024 13:49-0500 Body mass index (BMI) [Ratio] 29.53 kg/m2 Juan Manuel Brown DPM Work Phone: [facility] 07-05-2024 13:49-0500 Body weight 90.72 kg Juan Manuel Brown DPM Work Phone: [facility] 07-05-2024 13:49-0500 Diastolic blood pressure 79 mm[Hg] Juan Manuel Brown DPM Work Phone: [facility] 07-05-2024 13:49-0500 Heart rate 82 /min Juan Manuel Brown DPM Work Phone: [facility] 07-05-2024 13:49-0500 Systolic blood pressure 131 mm[Hg] Juan Manuel Brown DPM Work Phone: [facility] 10-24-2023 14:53-0500 Body weight 97.52 kg Ale Marylou MD Work Phone: [facility] 10-24-2023 14:53-0500 Diastolic blood pressure 66 mm[Hg] Ale Noriega MD Work Phone: [facility] 10-24-2023 14:53-0500 Heart rate 79 /min Ale Noriega MD Work Phone: [facility] 10-24-2023 14:53-0500 Systolic blood pressure 157 mm[Hg] Ale Noriega MD Work Phone: [facility] 10-15-2022 10:45-0500 Diastolic blood pressure 79 mm[Hg] Jf WALTERS [facility] 10-15-2022 10:45-0500 Heart rate 86 /min Jf WALTERS [facility] 10-15-2022 10:45-0500 Systolic blood pressure 128 mm[Hg] Jf WALTERS [facility] 06-28-2022 13:37-0500 Blood Pressure Location Jf WALTERS [facility] 06-28-2022 13:37-0500 Diastolic blood pressure 89 mm[Hg] Jf WALTERS [facility] 06-28-2022 13:37-0500 Heart rate 74 /min Jf WALTERS [facility] 06-28-2022 13:37-0500 Respiratory rate 16 /min Jf WALTERS [facility] 06-28-2022 13:37-0500 Systolic blood pressure 140 mm[Hg] Fj WALTERS [facility] Encounters Encounter Date Encounter Type Care Provider Facility Start: 10-11-2024 End: 10-11-2024 ambulatory JUAN MANUEL CROW Not Available Start: 10-11-2024 End: 10-11-2024 Bamboo flowsheet Juan Manuel Crow DPM Work Phone: [facility] Start: 10-11-2024 End: 10-11-2024 Bamboo flowsheet Juan Manuel Crow DPM Work Phone: [facility] Start: 10-11-2024 End: 10-11-2024 Office outpatient visit 15 minutes Juan Manuel Crow DPM Work Phone: [facility] Comment on above: Capsulitis of metata rsophalangeal (MTP) joint of right foot (Primary Dx); Diabetes mellitus due to underlying condition with diabetic polyneuropathy, unspecified whether intermodal customer service insulin use ([facility]); Pain due to onychomycosis of toenails of both feet; Venous insufficiency Start: 10-02-2024 End: 10-02-2024 Office outpatient visit 15 minutes Kaia Olguin MD Work Phone: [facility] Comment on above: Seborrheic keratosis (Primary Dx); Lentigines; Other rosacea; History of SCC (squamous cell carcinoma) of skin; Capillary angioma; Epidermal inclusion cyst Start: 10-02-2024 End: 10-02-2024 ambulatory KAIA OLGUIN Not Available Start: 10-02-2024 End: 10-02-2024 Bamboo flowsbonita Olguin MD Work Phone: [facility] Start: 10-02-2024 End: 10-02-2024 Bamboo flowsbonita Olguin MD Work Phone: [facility] Start: 09-19-2024 End: 09-19-2024 ambulatory BRANDON [facility] Start: 07-05-2024 End: 07-05-2024 Bamboo flowsheet Juan Manuel Crow DPM Work Phone: [facility] Start: 07-05-2024 End: 07-05-2024 Bamboo flowsheet Juan Manuel Crow DPM Work Phone: [facility] Start: 07-05-2024 End: 07-05-2024 Office outpatient visit 15 minutes Juan Manuel Crow DPM Work Phone: [facility] Comment on above: Capsulitis of metata rsophalangeal (MTP) joint of right foot (Primary Dx); Diabetes mellitus due to underlying condition with diabetic polyneuropathy, unspecified whether intermodal customer service insulin use (CMS/HCC); Pain due to onychomycosis of toenails of both feet; Venous insufficiency Start: 07-05-2024 End: 07-05-2024 ambulatory JUAN MANUEL CROW Not Available Start: 05-31-2024 End: 05-31-2024 ambulatory Ale Noriega MD Work Phone: [facility] Comment on above: Elevated prostate sp ecific antigen (PSA) (Primary Dx); Prostate cancer (HCC); Encounter for observation for other suspected diseases and conditions ruled out Start: 05-31-2024 End: 05-31-2024 Telemedicine consultation with patient Ale Noriega MD Work Phone: [facility]rology Start: 05-31-2024 End: 06-01-2024 Telephone encounter Ale Noriega MD Work Phone: [facility]rology Start: 05-25-2024 End: 05-25-2024 ambulatory Ale Noriega MD Work Phone: [facility]rology Start: 05-25-2024 End: 05-25-2024 Telephone encounter Ale Noriega MD Work Phone: [facility]rology Comment on above: Results; Appointment Start: 03-06-2024 End: 03-06-[address] Not Available Start: 02-09-2024 End: 02-09-2024 ambulatory JUAN MANUEL CROW Not Available Start: 02-09-2024 End: 02-09-2024 ambulatory [facility] Start: 01-26-2024 End: 01-26-2024 ambulatory KAIA OLGUIN Not Available Start: 12-27-2023 End: 12-27-2023 ambulatory MARQUIS WEAVER Facility:[facility] Start: 12-27-2023 End: 12-27-2023 Patient encounter procedure [...] [facility] Start: 12-08-2023 End: 12-08-2023 ambulatory ALE NORIEGA Facility:[facility] Start: 12-08-2023 End: 12-08-2023 Patient encounter procedure Ale Noriega MD Work Phone: Urology Comment on above: Elevated prostate sp ecific antigen (PSA) (Primary Dx); APPOINTMENT CANCELLED Start: 12-08-2023 End: 12-08-2023 Telemedicine consultation with patient Ale Noriega MD Work Phone: [facility] Start: 12-08-2023 Telephone encounter Ale Noriega MD Work Phone: Urology Start: 11-21-2023 End: 11-22-2023 ambulatory Trevor Forte MD Facility: [facility] Start: 11-17-2023 End: 11-17-2023 ambulatory RAUL SUN Facility:[facility] Start: 10-24-2023 End: 10-24-2023 ambulatory RAUL SUN Facility:[facility] Start: 10-24-2023 End: 10-24-2023 Patient encounter procedure Ale Noriega MD Work Phone: Urology Comment on above: Elevated prostate sp ecific antigen (PSA) (Primary Dx); BPH without obstruction/lower urinary tract symptoms Start: 06-27-2023 End: 06-27-2023 ambulatory RAUL SUN Facility:[facility] Start: 06-06-2023 End: 06-06-2023 ambulatory RAUL SUN Facility:[facility] Start: 06-06-2023 End: 06-06-2023 Patient encounter procedure Marquis Tovar Marliuhomavignesh OD Work Phone: Ophthalmology Comment on above: [...] Start: 10-26-2022 End: 10-27-[address] JF WALTERS . Facility: Start: 10-15-2022 End: 10-16-2022 ambulatory Jf WALTERS [facility] Start: 10-15-2022 End: 10-16-2022 ambulatory Jf WALTERS Facility:[facility] [place] [facility] Start: 10-15-2022 End: 10-15-2022 Lab Drop off Jf WALTERS [facility] Start: 10-15-2022 End: 10-15-2022 Patient encounter procedure Jf WALTERS [facility] Start: 07-14-2022 End: 07-14-2022 ambulatory Daina Judge Facility:[facility] Start: 07-14-2022 End: 07-14-2022 ambulatory REGIONAL ECONOMIST-C Daina Judge Work Phone: [facility] Work Phone: Start: 07-14-2022 End: 07-14-2022 Patient encounter procedure REGIONAL ECONOMIST-C Daina Judge Work Phone: [facility] [place] Start: 06-28-2022 End: 06-29-2022 ambulatory Jf WALTERS Facility:[facility] Start: 06-28-2022 End: 06-28-2022 Patient encounter procedure Jf WALTERS [facility] Start: 06-16-2022 End: 06-16-2022 Patient encounter procedure Radha Perez MD Work Phone: Ophthalmology Comment on above: After-cataract obscu ring vision, left (Primary Dx); Pseudophakia, left eye; Nuclear senile cataract of right eye; History of retinal detachment - left eye; Epiretinal membrane (ERM) of left eye; Type 2 diabetes mellitus without retinopathy (HCC) Start: 05-20-2022 End: 05-21-2022 ambulatory DAINA JUDGE Facility: Start: 05-12-2022 End: 05-13-2022 ambulatory DAINA ALFIE Facility: Start: 03-01-2022 End: 03-01-2022 Patient encounter procedure [...] Phone: Start: 10-26-[address] ZOLTAN WALTERS . Comment on above: Performed By: #### P SAD #### [facility] [address] [place] [address] Zaira Benoit Start: 06-16-2022 Post-cataract laser surgery Radha Perez MD Work Phone: Start: 05-12-[address] ZOLTAN WALTERS . Comment on above: Performed By: #### P SASC #### [facility] [address] [place], [place] [address] Dr. Zaira Benoit Start: 02-17-2022 Computerized ophthal marquis imaging retina Radha Perez MD Work Phone: Start: 02-17-2022 Computerized corneal topography uni/bi Radha Perez MD Work Phone: Start: 08-22-2018 Transrectal biopsy o f prostate using ultrasound guidance Jf WALTERS Ophthalmological imp lant (physical object) Jf WALTERS Comment on above: left eye Repair of incisional hernia Jf WALTERS Plan of Treatment Date Care Activity Detail Author Start: 10-30-2025 End: 10-30-2025 Patient encounter procedure 10/30/2025 2:00 PM EDT Office Visit [facility] [address] [place] [address] Kaia Olguin MD [address] [place] [address] [facility] Start: 12-28-2024 End: 12-28-2024 Patient encounter procedure 12/28/2024 1:30 PM EDT Office Visit [facility] [address] [place] [address] Marquis Weaver S, OD [address] [place] [address] Annual Full Eye Exam with Mac OCT Ophthalmology Comment on above: Annual Full Eye Exam with Mac OCT Start: 12-26-2024 Glaucoma screening Dilated Retinal E xam [facility] Start: 2024 RSV Vaccine (1 - 1-d ose 75+ series) RSV Vaccine (1 - 1-dose 75+ series) [facility] Start: 10-11-2024 End: 10-11-2024 Patient encounter procedure 10/11/2024 1:50 PM EST Procedure Visit [facility] [address] [place] [address] Juan Manuel Crow DPM [address] [address] [facility] Start: 10-02-2024 End: 10-02-2024 Patient encounter procedure 10/02/2024 2:45 PM EST Office Visit [facility] [address] [place] [address] Kaia Olguin MD [address] [place] [address] Arrived [facility] Comment on above: Arrived Start: 09-13-2024 End: 09-13-2024 Patient encounter procedure 09/13/2024 2:20 PM EST Procedure Visit [facility] [address] [facility] [address] [place] [address] Juan Manuel Crow DPM [address] [address] [facility] Start: 09-06-2024 End: 09-06-2024 Patient encounter procedure 09/06/2024 1:35 PM EST Office Visit [facility] [address] [place] [address] Kaia Olguin MD [address] [place] [address] [facility] Start: 06-27-2024 Glaucoma screening Dilated Retinal E xam [facility] Start: 06-06-2024 Hepatitis C antibody , confirmatory test Dilated Retinal Exam [facility] Start: 05-31-2024 End: 06-30-2025 MR Prostate WO and W contrast IV MRI PROSTATE WO/W IVCON Radiology Routine Encounter for observation for other suspected diseases and conditions ruled out Expected: 05/31/2024 (Approximate), Expires: 06/30/2025 [facility] Work Phone: Comment on above: Expected: 05/31/2024 (Approximate), Expires: 06/30/2025 Start: 05-31-2024 End: 06-30-2025 MR Unspecified body region 3D post processing MRI 3D POST PROCESSING Radiology Routine Elevated prostate specific antigen (PSA) Prostate cancer (HCC) Expected: 05/31/2024 (Approximate), Expires: 06/30/2025 [facility] Comment on above: Expected: 05/31/2024 (Approximate), Expires: 06/30/2025 Start: 05-31-2024 End: 08-30-2024 Prostate Specific Ag Free [Mass/volume] in Serum or Plasma PROSTATE SPECIFIC ANTIGEN, FREE Lab Routine Elevated prostate specific antigen (PSA) Prostate cancer (HCC) Encounter for observation for other suspected diseases and conditions ruled out Expected: 05/31/2024 (Approximate), Expires: 08/30/2024 [facility] Comment on above: Expected: 05/31/2024 (Approximate), Expires: 08/30/2024 Start: 04-22-2024 Covid-19 Vaccine ( season) Covid-19 Vaccine ( season) [facility] Start: 04-22-2024 Influenza vaccination [facility] Start: 12-27-2023 End: 12-27-2023 Patient encounter procedure 12/27/2023 1:00 PM EDT Office Visit [facility] [address] [place] [address] Marquis Weaver S, OD [address] [place] [address] RTC 6 months Dilate and oct [facility] Comment on above: RTC 6 months Dilate and oct [facility] Start: 11-24-2023 End: 02-23-2024 Prostate specific Ag [Mass/volume] in Serum or Plasma PSA/PROSTSPECAG DIAG Lab Routine Elevated prostate specific antigen (PSA) BPH without obstruction/lower urinary tract symptoms Expected: 11/24/2023 (Approximate), Expires: 02/23/2024 [facility] Work Phone: Comment on above: Expected: 11/24/2023 (Approximate), Expires: 02/23/2024 Start: 08-22-2023 Advance Directive Discussion Advance Directive Discussion [facility] Start: 08-22-2023 Behavioral Health Screening Behavioral Health Screening [facility] Start: 08-22-2023 Depression Assessment [facility] Start: 06-16-2023 Hepatitis C antibody , confirmatory test DILATED RETINAL EXAM [facility] Start: 04-22-2023 Covid-19 Vaccine () Covid-19 Vaccine () [facility] Start: 04-22-2023 Influenza vaccination [facility] Start: 03-01-2023 Hepatitis C antibody , confirmatory test DILATED RETINAL EXAM [facility] Start: 02-17-2023 Hepatitis C antibody , confirmatory test DILATED RETINAL EXAM [facility] Start: 12-11-2022 COVID-19 VACCINE (5 - Pfizer series) COVID-19 VACCINE (5 - Pfizer series) [facility] Start: 08-22-2022 ADVANCE DIRECTIVE DISCUSSION ADVANCE DIRECTIVE DISCUSSION [facility] Start: 08-22-2022 DEPRESSION ASSESSMENT DEPRESSION ASS ESSMENT [facility] Start: 05-07-2022 COVID-19 VACCINE (4 - Booster for Pfizer series) COVID-19 VACCINE (4 - Booster for Pfizer series) [facility] Start: 04-22-2022 Influenza vaccination [facility] Start: 08-22-2021 ADVANCE DIRECTIVE DISCUSSION ADVANCE DIRECTIVE DISCUSSION [facility] Start: 08-22-2021 DEPRESSION ASSESSMENT DEPRESSION ASS ESSMENT [facility] Start: 04-16-2021 COVID-19 VACCINE (3 - Booster for Pfizer series) COVID-19 VACCINE (3 - Booster for Pfizer series) [facility] Start: 07-25-2020 COLORECTAL CANCER SCREENING COLORECTAL CANCER SCREENING [facility] Start: 07-25-2020 FECAL OCCULT BLOOD FECAL OCCULT BLOO D [facility] Start: 07-25-2020 Hepatitis B screening URINE ALBUMIN:CREATININE RATIO [facility] Start: 07-25-2020 Hepatitis B surface antibody level LDL CHOLESTEROL [facility] Start: 07-25-2020 Screening for malign ant neoplasm of colon [facility] Start: 01-24-2020 Hemoglobin A1c measurement HbA1C [facility] Start: 01-24-2020 Hemoglobin A1c/Hemoglobin.total in Blood HBA1C [facility] Start: 2014 Pneumococcal Vaccine : 65+ Years (1 of 1 - PCV) Pneumococcal Vaccine: 65+ Years (1 of 1 - PCV) [facility] Start: 2009 Hepatitis B Vaccine (1 of 3 - Risk 3-dose series) Hepatitis B Vaccine (1 of 3 - Risk 3-dose series) [facility] Start: 2009 RSV Vaccine (1 - 1-d ose 60+ series) RSV Vaccine (1 - 1-dose 60+ series) [facility] Start: 11-27-1999 SHINGRIX VACCINE (1 of 2) SHINGRIX VACCINE (1 of 2) [facility] Start: 1994 COLOGUARD (FIT-DNA) COLOGUARD (FIT-D NA) [facility] Start: 1994 Colonoscopy COLONOSCOPY [facility] Start: [address] COLONOGRAPHY [facility] Start: 1994 Screening for malign ant neoplasm of colon [facility] Start: 1994 SIGMOIDOSCOPY SIGMOIDOSCOPY [facility] Start: 1968 Urine microalbumin profile [facility] Start: 11-27-1967 ANNUAL PCP TEAM DIGITAL EXPERIENCE MANAGER GERSON DISEASE VISIT ANNUAL PCP TEAM CHRONIC DISEASE VISIT [facility] Start: 11-27-1967 Anxiety Screening Anxiety Screening [facility] Start: 11-27-1967 Depression Screening Depression Scre ening [facility] Start: 11-27-1967 HEPATITIS C SCREENING HEPATITIS C [facility] Start: 11-27-1967 Hepatitis C screening Hepatitis C [facility] Start: 1961 Adult depression screening assessment DEPRESSION SCREENING [facility] Start: 11-27-1959 3 comp foot exam completed DIABETIC FOOT EXAM [facility] Start: 11-27-1959 Diabetic foot examination Diabetic Foot Exam [facility] Start: 04-07-1956 Pneumococcal Vaccine : 65+ (1 - PCV) Pneumococcal Vaccine: 65+ (1 - PCV) [facility] Start: 11-27-1955 Pneumococcal Vaccine : 65+ (1 of 2 - PCV) Pneumococcal Vaccine: 65+ (1 of 2 - PCV) [facility] Start: 11-27-1955 PNEUMOCOCCAL: 65+ (1 - PCV) PNEUMOCOCCAL: 65+ (1 - PCV) [facility] Start: 1949 ABDOMINAL AORTIC ANEURYSM SCREENING ABDOMINAL AORTIC ANEURYSM SCREENING [facility] Start: 1949 Abdominal aortic aneurysm screening Abdominal Aortic Aneurysm Screening [facility] Start: 1949 Screening for malign ant neoplasm of colon [facility] Immunizations Immunization Date Immunization Notes Care Provider Rosalind alvares 03-12-2022 SARS-CoV-2 mRNA (cdqjijupufa-[id number] se) vaccine Jf WALTERS [facility] Comment on above: Result Comment: 2021: [id number] 11-14-2020 COVID-19 vaccine, ag e 12+ yr (PFIZER-BIONTECH - PURPLE TOP) Radha Perez MD Work Phone: [facility] Comment on above: Result Comment: 2021: TPV70 10-24-2020 COVID-19 vaccine, ag e 12+ yr (PFIZER-BIONTECH - PURPLE TOP) Radha Perez MD Work Phone: [facility] Comment on above: Result Comment: 2021: [id number] Payers Date Payer Category Payer Medicare [id number] 2022 Self-pay 2021 Medicare (Managed Care) [id number]. [id number] 2017 Unknown ANTHEM BLUE MARGARITA S AND BLUE SHIELD [facility] [id number] 2017-Present [phone] [facility] [id number] [place] [address] [facility] [id number] 2017 Unknown [id number] 1959 Medicare [id number] 1949 Unknown [id number] .593 1949 Unknown [id number] [id number] .593 1949 Unknown [id number] [id number] .593 1949 Unknown [id number] 2.16.840.1.149536.3.579.2 .727 1949 Unknown [id number] 2.16.840.1.361652.3.579.2 .727 1949 Unknown [id number] 2.16.840.1.758941.3.579.2 .727 1949 Unknown [id number] 2.16.840.1.915315.3.579.2 .196 1949 Unknown [id number] 2.16.840.1.543664.3.579.2 .196 1949 Unknown [id number] 2.16.840.1.049062.3.579.2 .1259 1949 Unknown [id number] 2.16.840.1.930563.3.579.2 .1259 1949 Unknown [id number] 2.16.840.1.366897.3.579.2 .1259 1949 Unknown [id number] 2.16.840.1.642844.3.579.2 .1259 1949 Unknown [id number] 2.16.840.1.972923.3.579.2 .1259 1949 Unknown [id number] 2.16.840.1.752007.3.579.2 .1259 Medicare Medicare [id number] Unknown [id number] .531 Social History Date Type Detail Facility Start: 11-03-2016 End: 01-25-2023 Tobacco smoking status NHIS Smokes tobacco daily [facility] History of tobacco use Cigarette Smoker [facility] Start: 11-03-2016 End: 10-03-2024 Cigarettes smoked current (pack per day) - Reported 1 [facility] Start: 11-03-2016 End: 01-25-2023 Tobacco use and exposure Smokeless tobacco non-user [facility] Start: 02-17-2022 End: 10-03-2024 Alcohol intake Current drinker of alcohol (finding) [facility] Start: 11-20-2018 History SDOH Alcohol Comment per day [facility] Start: 1950 Sex Assigned At Not on file [facility] Start: 06-28-2022 End: 10-15-2022 Tobacco smoking status Heavy tobacco smoker (finding) [facility] Start: 06-16-2022 End: 10-03-2024 Sex Assigned At Male [facility] Start: 1950 Sex Assigned At Male F [facility] National Score (1-10 0), lower number is lower risk 87 [facility] Medical Equipment Procedure Code Equipment Code Equipment Origin al Text Equipment Identifier Dates Lens Acrysof Iq +19.5 Diopter Natural Stableforce 0 D Biconvex 118.7 - [id number] Start: 02-07-2017 Functional Status Date Assessment Result Facility 10-15-2022 Functional Status N/A [facility] 06-28-2022 Functional Status N/A [facility] Clinical Notes 02-17-2022 to 10-19-2024 Juan Manuel Crow DPM - 10/11/2024 1:50 PM Dinora Olguin MD - 10/02/2024 2:45 PM Manuela Crow DPM - 07/05/2024 1:50 PM ESTTelephone Encounter - Paty Lacey - 06/01/2024 10:53 AM EDT Note Date & Type Note Facility 10-19-2024 Note This follow-up is in response to the patient???s recent BMP and his request for a spironolactone refill, which prompted the lab evaluation. The patient???s serum sodium has now decreased to 126 mEq/L, reflecting worsening hyponatremia. Given his history of chronic alcohol use, beer potomania remains a strong consideration, though additional etiologies such as SIADH, volume overload secondary to underlying cardiac dysfunction, diuretic-induced sodium loss, or adrenal insufficiency must also be evaluated. I have ordered serum osmolality, urine osmolality, and urine sodium to differentiate between dilutional and renal sodium loss. TSH with reflex to Free T4 will be obtained to rule out hypothyroidism. Serial serum sodium levels will be trended with repeat BMP to monitor progression and response to management. The patient does not have an established emergency physician. Given the severity of hyponatremia and the potential for further decline, which may lead to neurological complications, a referral to nephrology is warranted for further assessment and long-term electrolyte management. I will continue to coordinate care and adjust management based on the results of this workup. [facility] 10-19-2024 Note ne [facility] 10-11-2024 History of Present illness Narrative Patient: Gianfranco Leblanc : 1950 PCP: No primary care provider [...] of venous stasis to b/l lower extremities. Patient has history of right 4th MPJ capsule pain and has been taking anti-inflammatories periodically. Patient rates pain a 3/10. Allergies: Allergies Allergen Reactions Amlodipine Swelling Penicillin G Unknown Penicillins Other, Rash and Unknown Other Reaction(s): Unknown skin reaction Past Medical History: Past Medical History: Diagnosis Date COPD (chronic obstructive pulmonary disease) [facility]) Depression ([facility]) DM (diabetes mellitus) ([facility]) HLD (hyperlipidemia) ([facility]) HTN (hypertension) ([facility]) Squamous cell skin cancer Medications: [...] Partner Violence: Unknown (10/13/2023) Re[facility] from [facility] [place] [employer] [facility] Fear of Current [...] and negative PT pedal pulses NEURO: 5.07 Oakley Sally monofilament test diminished to digits and forefoot bilaterally 125Hz tuning fork diminished to 1st MPJ bilaterally ORTHO: Positive pain on palpation to toenails of the left 1,2,3,4,5 toes and right 1,2,3,4,5 toes Positive pain on palpation to right 4th MPJ plantar capsule with negative Jeremy test ASSESSMENT 1. Diabetes mellitus due to underlying condition with diabetic polyneuropathy, unspecified whether intermodal customer service insulin use ([facility]) 2. Pain due to onychomycosis [...] education on condition and treatment of condition. Patient to continue with oral anti - inflammatories as needed for pain and recommended OTC medications such as tylenol or Ibuprofen Advised patient to use kpwj-zgy-vmmzbum gel inserts at this time to offload the sub 4th metatarsal region of the left foot that is painful Juan Manuel Crow DPM documented in this encounter [facility] 10-02-2024 History of Present illness Narrative Skin Check Location: Patient requests a skin examination from the waist up Dermatologic history: history of Squamous Cell Carcinoma Last visit: 7 months ago- Mohs Surgery on the right hand Established patient Follow up Diagnosis: rosacea Location: face Last visit: 7 months ago Status: Stable with treatment. Current treatment: Doxycycline 50 mg every day- will need to send in Monohydrate instead Hyclate as his insurance recently sent letter of denial. If this is still denied will have to consider alt. Treatment. Established patient All pertinent medical history, medications, and allergies were reviewed. General Exam: alert , oriented to person, place, and time , normal affect, well appearing A complete skin exam was offered, pt declined. Areas not examined despite medical recommendation: below wastline Scalp, Examined , exam limited by hair Head, Face Examined Neck Examined Chest Examined Back Examined Abdomen Examined Right arm Examined Left arm Examined Hands Examined Digits,nails: Examined 1. Lentigines Scattered delaney macules in sun-exposed areas. The patient was informed that lentigines are benign pigmented lesions that occur on sun-exposed and sun-damaged skin. No treatment is necessary. Recommended regular use of broad spectrum sunscreen SPF 30 or higher 2. Seborrheic keratosis Stuck on verrucous, delaney-brown papules and plaques. Patient was counseled regarding these benign growths. Removal is normally not necessary, but they may be removed if they are symptomatic or for cosmetic reasons. 3. Other rosacea Head - Anterior (Face) Mild erythema, stable with treatment. The patient was informed that rosacea a chronic condition that can be controlled but not cured. Instructed to call if condition worsens despite treatment or if side effects develop. Encouraged patient to attempt taking Doxycycline as needed and see if symptoms remain stable. Related Medications doxycycline (Monodox) 50 MG capsule Take 1 capsule, by mouth, once daily, 30 days 4. History of SCC (squamous cell carcinoma) of skin Unspecified The patient was counseled that scars from excisional sites of nonmelanoma skin cancers should be monitored closely for recurrence. The patient was instructed to contact the office for any new, changing, or symptomatic moles. The patient was also instructed to contact the office for any new lesions that develop within or around the previous surgery scar. 5. Capillary angioma Trunk Scattered hernandez-red papule(s). The patient was informed that angiomas are benign growths on the the skin. No treatment is necessary. 6. Epidermal inclusion cyst Torso - Posterior (Back) Scattered subcutaneous, mobile nodules central punctum. Patient was counseled regarding cysts. Although benign, cysts often slowly enlarge and can occasionally become inflamed. Discussed the only way to definitively diagnose the lesion would be to have it removed and tested. Discussed treatment options including observation vs. excision. Patient elected for observation. Notify office if lesion is enlarging or becomes symptomatic. Next Visit: 1 year documented in this encounter [facility] 09-19-2024 Note Patient here for 6 m [...] All other systems reviewed and are negative. [facility] 09-19-2024 Note SUBJECTIVE Gianfranco Leblanc is a 73 y.o. year old male patient being seen for office visit, follow-up. HPI 09/19/2024: Office Visit Gianfranco Leblanc is a 73 yo male with PMH HTN, LE edema, smoker. He endorses SOB on exertion when walking up stairs, denies SOB at rest, + orthopnea sleeps with two pillows unable to lay flat. Denies chest pain, palpations, dizziness. He has no other concerns for this visit. 02/09/2024 Office Visit FU (Hilda Ha NP): Summary of visit: Patient was last seen in January 2024. He is a smoker who declined smoking session after a brief discussion. His hypertension remains stable and well-controlled on the current treatment regimen, with a recommendation to continue dietary sodium restriction and current medication, and blood pressure will be reassessed at the next regular appointment. Edema in both lower extremities have significantly improved with increased dose of Lasix, with only trace edema noted today. Renal function remained stable. Past Medical History: Diagnosis Date Hypertension Past [...] every 12 (twelve) hours., Disp: , Rfl: traZODone (Desyrel) 150 mg tablet, 1 (one) time each day at the same time., Disp: , Rfl: carvedilol (Coreg) 12.5 mg tablet, Take 1 tablet (12.5 mg) by mouth with breakfast and with evening meal., Disp: 60 tablet, Rfl: 11 potassium chloride ER (Micro-K) 10 mEq ER capsule, TAKE 1 CAPSULE BY MOUTH TWICE DAILY WITH FOOD, Disp: , Rfl: spironolactone (Aldactone) 25 mg tablet, Take 1 tablet (25 mg) by mouth in the morning., Disp: 90 tablet, Rfl: 3 Recent Labs No visits with results within 6 Month(s) from this visit. Latest known visit with results is: No results found for any previous visit. Recent labs collected 08/10/2024 (per multimedia technician): Sodium 131, potassium 4.9, creatinine 0.97, EGFR greater than 60, glucose 135, total protein 7.2, albumin 3.6. TTE 06/14/2023: LVE (more content not included)... [facility] 07-05-2024 History of Present illness Narrative Patient: Gianfranco Leblanc : 1950 PCP: No primary care provider [...] Diagnosis Date COPD (chronic obstructive pulmonary disease) ([facility]) Depression ([facility]) DM (diabetes mellitus) ([facility]) HLD (hyperlipidemia) ([facility]) HTN (hypertension) ([facility]) Squamous cell skin cancer Medications: [...] Partner Violence: Unknown (10/13/2023) Received from [facility] [place] [employer] Fear of Current [...] and negative PT pedal pulses NEURO: 5.07 Oakley Sally monofilament test diminished to digits and forefoot bilaterally 125Hz tuning fork diminished to 1st MPJ bilaterally ORTHO: Positive pain on palpation to nails 1 through 10 Minimal pain on palpation to right 4th MPJ plantar capsule with negative Jeremy test ASSESSMENT 1. Diabetes mellitus due to underlying condition with diabetic polyneuropathy, unspecified whether chcf insulin use ([facility]) 2. Pain due to onychomycosis [...] and if worsens contact Podiatry Juan Manuel Crow DPM documented in this encounter [facility] 06-01-2024 Telephone encounter Note Julius Noriega- Spoke to patient Told Patient I was calling to get him scheduled for PSA and MRI with a follow up to see you. 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 Pt explained his Urology provider, Dr Barroso at [facility], scheduled him an MRI and he was unable to lie flat and complete the MRI so he does not believe he will be able to do this. Pt stated Dr Barroso has been monitoring his prostate and they did several biopsies for prostate. Patient DECLINED to schedule at this time stating that if/when he needs to see Dr Noriega, he will call. I told him the order for the MRI and PSA is in, so should he call, he can get it scheduled. Paty Tristen June 01, 2024 11:08 AM [facility] 06-01-2024 Miscellaneous Notes Julius Noriega- Spoke to patient Told Patient I was calling to get him scheduled for PSA and MRI with a follow up to see you. 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 Pt explained his Urology provider, Dr Barroso at [facility], scheduled him an MRI and he was unable to lie flat and complete the MRI so he does not believe he will be able to do this. Pt stated Dr Barroso has been monitoring his prostate and they did several biopsies for prostate. Patient DECLINED to schedule at this time stating that if/when he needs to see Dr Noriega, he will call. I told him the order for the MRI and PSA is in, so should he call, he can get it scheduled. Paty Tristen June 01, 2024 11:08 AM Images from the original note were not included. Jovita Glover Urol Schedulers Pool Please schedule patient for an MRI Prostate and then for an OV to follow per request! LVM for pt to call back and schedule MRI and follow up. Mychart sent. documented in this encounter [facility] 05-31-2024 Telephone encounter Note Images from the original note were not included. Jovita Glover Urol Schedulers Pool Please schedule patient for an MRI Prostate and then for an OV to follow per request! LVM for pt to call back and schedule MRI and follow up. Mychart sent. [facility] 05-31-2024 Instructions Jovita Glover - 05/31/2024 2:29 PM EDT PSA test and MRI Prostate Schedule office visit to follow documented in this encounter [facility] 05-31-2024 Note HNO ID: [id number] Author: ?, ?, ? Service: ? Author Type: ? Type: Progress Notes Filed: 05/31/2024 14:32 Note Text: INPATIENT TELEPHONE VISIT PROGRESS NOTE SERVICE DATE: 05/31/2024 SERVICE TIME: 2:00pm Gianfranco Leblanc has consented to this telephone encounter. Persons Present: patient Chief Complaint/Reason: discuss need for prostate biopsy HPI: Data Reviewed: Most recent labs PSA from [facility] on 05-18-24 = 16.17 (normal [...] 2:02 pm Finish: 2:28 pm SIGNATURE: ALE NORIEGA PATIENT NAME: Gianfranco Leblanc DATE: May 31, 2024 TIME: 2:28PM By signing my name below, I, Jovita Glover, attest that this documentation has been prepared under the direction and in the presence of Dr. Noriega. Ayde Patel Provider Attestation: Ale Huggins M.D., personally performed the services described in this documentation. All medical record entries made by the scribe were at my direction and in my presence. I have reviewed the chart and discharge instructions (if applicable) and agree that the record reflects my personal performance and is accurate and complete. Ale Noriega M.D. [facility] 05-31-2024 History of Present illness Narrative INPATIENT TELEPHONE VISIT PROGRESS NOTE SERVICE DATE: 05/31/2024 SERVICE TIME: 2:00pm Gianfranco Leblanc has consented to this telephone encounter. Persons Present: patient Chief Complaint/Reason: discuss need for prostate biopsy HPI: Data Reviewed: Most recent labs PSA from [facility] on 05-18-24 = 16.17 (normal [...] 2:02 pm Finish: 2:28 pm SIGNATURE: ALE NORIEGA PATIENT NAME: Gianfranco Leblanc DATE: May 31, 2024 TIME: 2:28PM By signing my name below, I, Jovita Glover, attest that this documentation has been prepared under the direction and in the presence of Dr. Noriega. Ayde Patel Provider Attestation: Ale Huggins M.D., personally performed the services described in this documentation. All medical record entries made by the scribe were at my direction and in my presence. I have reviewed the chart and discharge instructions (if applicable) and agree that the record reflects my personal performance and is accurate and complete. Ale Noriega M.D. documented in this encounter [facility] 05-25-2024 Telephone encounter Note Call placed to patient in regards to message below. LVMM for patient to return call back to [phone], in regards to his recent lab results and orders on how Dr. Noriega would like to proceed. [facility] 05-25-2024 Miscellaneous Notes Call placed to patient in regards to message below. LVMM for patient to return call back to [phone], in regards to his recent lab results and orders on how Dr. Noriega would like to proceed. Please notify patient his PSA is very high and he is at high risk of having prostate cancer. he needs to schedule his prostate biopsy unless he had it done else where PSA from [facility] on 05-18-24 = 16.17 (normal values 0-4) Can be done in office under local or in ASC under [facility] Ale Noriega MD documented in this encounter [facility] 05-25-2024 Telephone encounter Note Please notify patient his PSA is very high and he is at high risk of having prostate cancer. he needs to schedule his prostate biopsy unless he had it done else where PSA from [facility] on 05-18-24 = 16.17 (normal values 0-4) Can be done in office under local or in ASC under [facility] Ale Noriega MD [facility] Work Phone: 05-25-2024 Note HNO ID: [id number] Author: ALE NORIEGA MD Service: ? Author Type: Physician Type: Progress Notes Filed: 05/25/2024 07:14 Note Text: PSA still rising PSA from [facility] on 05-18-24 = 16.17 (0-4) [facility] 05-25-2024 History of Present illness Narrative PSA still rising PSA from [facility] on 05-18-24 = 16.17 (0-4) documented in this encounter [facility] 02-09-2024 Note Greatly improved wit h increased dose of lasix. Trace edema noted today Renal function stable [facility] 02-09-2024 Note Hypertension is unch anged- stable well controlled Continue current treatment regimen. Dietary sodium restriction. Continue current medications. Blood pressure will be reassessed at the next regular appointment. [facility] 02-09-2024 Note Recommended smoking cessation after 5 min discussion and pt declined [facility] 02-09-2024 Note [facility]TP CARDIOLOGY PROGR ESS NOTE HPI: Gianfranco Leblanc is a 73 y.o. male here for [...] noted today Renal function stable RTC 6months [facility] 02-09-2024 Note Patient here for [...] All other systems reviewed and are negative. [facility] 12-27-2023 Note Date of Procedure 12/27/2023. Interpretation Right Eye Normal without fluid. Findings include Negative for Intraretinal fluid, Cystoid macular edema. Left Eye Abnormal foveal contour. Findings include Negative for Intraretinal fluid, Cystoid macular edema. Interval Change Right Eye Stable. Left Eye Stable. [facility] 12-27-2023 Note HNO ID: [id number] Author: MARQUIS WEAVER OD Service: ? Author Type: TREER Type: Progress Notes Filed: 12/27/2023 13:45 Note [...] December 27, 2023 1:40 PM [facility] 12-27-2023 History of Present illness Narrative ASSESSMENT/PLAN: [...] 2023 1:40 PM documented in this encounter [facility] 12-13-2023 Telephone encounter Note Please call again and update me Please notify patient that his PSA is rising from 9 to 10.6 He needs prostate bx Can be done in office under local anesthesia or in ASC under MAC ( [facility]) He can come to pickling grader flyer on prostate bx To schedule office visit to discuss prostate bx if he wishes Ale Noriega MD [facility] Work Phone: 12-13-2023 Miscellaneous Notes Please call again and update me Please notify patient that his PSA is rising from 9 to 10.6 He needs prostate bx Can be done in office under local anesthesia or in ASC under MAC ( [facility]) He can come to pickling grader flyer on prostate bx To schedule office visit to discuss prostate bx if he wishes Ale Noriega MD documented in this encounter [facility] 12-08-2023 Miscellaneous Notes Phone visit unsuccessful and had only VOICE MAIL X 2 I DID NOT LEAVE A MESSAGE Please notify patient that his PSA is rising from 9 to 10.6 He needs prostate bx Can be done in office under local anesthesia or in ASC under MAC ( [facility]) He can come to pickling grader flyer on prostate bx To update me Ale Noriega MD documented in this encounter [facility] 12-08-2023 Note HNO ID: [id number] Author: ?, ?, ? Service: ? Author Type: ? Type: Progress Notes Filed: 12/08/2023 14:51 Note Text: 72 year old male with nuclear sclerotic senile, ERM, pseudophakia here today for elevated PSA. PSA PSA PSA, PERCENT FREE Latest Ref Rng <2.60 ng/mL % 07/25/2019 5.33 (H) 6 5.34 (H) 11/17/2023 10.58 (H) Attempted to call patient at 2:41. No answer. [facility] 12-08-2023 History of Present illness Narrative 72 year old male with nuclear sclerotic senile, ERM, pseudophakia here today for elevated PSA. PSA PSA PSA, PERCENT FREE Latest Ref Rng <2.60 ng/mL % 07/25/2019 5.33 (H) 6 5.34 (H) 11/17/2023 10.58 (H) Attempted to call patient at 2:41. No answer. documented in this encounter [facility] 10-24-2023 Instructions Raven Babcock - 10/24/2023 3:05 PM EST -PSA in 4 weeks at [facility] lab -Schedule telephone visit in 5 weeks to discuss PSA blood test documented in this encounter [facility] 10-24-2023 History of Present [place] [address] 72 year old male with nuclear sclerotic [...] 2007 Retinal detachment, left eye, repaired in [place], [place] PAST SURGICAL HISTORY OF hernia sx, [...] nontender, w/o nodules. Good anal sphincter tone. [facility] SYMPTOMS SCORE. Date 10/24/2023 1. [...] direction and in the presence of Dr. Noriega. Avinash Oliveiraibe Provider Attestation: IAle M.D., personally performed the services described in this documentation. All medical record entries made by the scribe were at my direction and in my presence. I have reviewed the chart and discharge instructions (if applicable) and agree that the record reflects my personal performance and is accurate and complete. Ale Noriega M.D. documented in this encounter [facility] 10-24-2023 Note HNO ID: [id number] Author: ?, ?, ? Service: ? Author Type: ? Type: Progress Notes Filed: 10/24/2023 15:09 Note Text: [place] [address] 72 year old male with nuclear sclerotic [...] 2007 Retinal detachment, left eye, repaired in [place], [place] PAST SURGICAL HISTORY OF hernia sx, [...] nontender, w/o nodules. Good anal sphincter tone. [facility] SYMPTOMS SCORE. Date 10/24/2023 1. [...] direction and in the presence of Dr. Noriega. Ayde Oliveira Provider Attestation: Ale Huggins M.D., personally performed the services describe (more content not included)... [facility] 06-27-2023 Note HNO ID: [id number] Author: Kenyon Angel, OD Service: ? Author Type: TREER Type: Progress Notes Filed: 06/27/2023 1:37 PM [...] answered. I have interviewed and examined Gianfranco Lilyanna. I have confirmed and edited as necessary the chief complaint, history of present illness, past medical history, medications, family history, social history, review of systems, and exam findings as obtained by others. I agree with the assessment and plan as stated above,and have discussed them in detail with the patient. Kenyon Angel, OD June 27, 2023 1:37 PM [facility] 06-06-2023 Note HNO ID: [id number] Author: Marquis Weaver OD Service: ? Author Type: TREER Type: Progress Notes Filed: 06/06/2023 2:29 PM [...] June 06, 2023 2:22 PM [facility] 06-06-2023 History of Present illness Narrative ASSESSMENT/PLAN: [...] 2023 2:22 PM documented in this encounter [facility] 10-15-2022 Hospital Discharge instructions Patient Education [...] one of these risk factors: ?Being of -[place]ong[place] descent. ?Having a family history of prostate [...] you: Are older than age 55. Are -Tongan. Have a father, brother, or uncle who [...] 05/19/2018 Document Revised: 07/21/2018 Document Reviewed: 05/19/2018 [place] CK1 Patient Education 2019 [employer]. Follow Up Care 10/05/2022 09:16:20 With:SELENA LEONG, Jf Reis, URL Address: [address] [place] [address]- When: Unknown [facility] [place] 06-28-2022 Note Chief Complaint Referral-Elevated PSA HPI [...] URL [facility] [address], [place] [address] [phone] Additional Instructions: pt will f/u based on MRI results Patient Education Benign Prostatic Hyperplasia Letitia Huggins, personally scribed for Dr. Walters on 06/28/2022 14:12:52. . Documentation recorded by the Rina messery Rife, accurately reflects the services(s) I performed and [...] Father. Immunizations Vaccine Date Status Comments SARSCoV2 mRNA(ushsuxcjm-mnsy-rzbzjy) vac 03/12/2022 Recorded 2022-06-28: TPV70 SARS-CoV-2 (COVID-19) mRNA BNT-162b2 vax 11/14/2020 Recorded 2022-06-28: TPV70 SARS-CoV-2 (COVID-19) mRNA BNT-162b2 vax 10/24/2020 Recorded 2022-06-28: TPV70 Lab Results Test Name Test Result Date/Time PSA, External 6.8 ng/mL 05/20/2022 08:26 EDT PSA, External 8.41 ng/mL 05/12/2022 08:25 EDT Diagnostic Results Test (more content not included)... [facility] Comment on above: Result Comment: Elec tronically Signed By: Jf WALTERS MD\.br\Date and Time Signed: 06/28/22 14:16 EST\.br\Electronically [...] urethra. Follow these instructions at home: Take bcff-uyi-zdzeynr and prescription medicines only as told by [...] 08/08/2006 Document Revised: 07/03/2019 Document Reviewed: 09/12/2017 [place] CK1 Patient Education 2020 [employer]. Follow Up Care 05/27/2022 15:25:17 With:SELENA LEONG, Jf Reis, URL Address: [facility] [address] , [place] [address] [phone] When: Unknown [facility] 06-16-2022 History of Present illness Narrative ASSESSMENT/PLAN: [...] Z96.1 -S/P PCIOL Left eye (02/07/17) Aim: [place] by Dr. Ana farnsworth; He states that he is happy using OTC readers and declines appt for refraction with blender/braze applicator 3. Nuclear senile cataract of right eye [...] others. I have seen and examined Gianfranco Leblanc. I have discussed the case and the management of this patient's care with the Resident/Fellow, if applicable. I also have reviewed and agree with the assessment and plan as stated above and agree with all of its relevant components. Radha Perez MD documented in this encounter [facility] 03-01-2022 History of Present illness Narrative [...] 2022 4:08 PM documented in this encounter [facility] 02-26-2022 Miscellaneous Notes Called to let patient know we were able to get him an appointment in [place] at 4pm, left message. SENTHIL Ballesteros February 26, 2022 3:[address] Perez and she recommends that he be seen today. Please reach out to Patient to see if we can get appointment. SENTHIL Ballesteros February 26, 2022 2:57 PM documented in this encounter [facility] 02-17-2022 History of Present illness Narrative [...] h/o retinal detachment repair OS 2007 in [place]. Stable. Call/come in for evaluation immediately if [...] eye -S/P PCIOL Left eye (02/07/17) Aim: [place] by Dr. Perez Signs and symptoms of posterior capsular opacification were reviewed. Discussed possible eventual need for Yag laser posterior capsulotomy. Patient is still happy enough with vision, so declines Yag procedure for now. stable; he remains happy with his vision OS and with OTC readers If he wishes to get new glasses, previously offered an undilated refraction with our optometrists in [place]; he was told that vision with new glasses would not be perfect due to cataract OD; he also has mild PCO OS and Epiretinal membrane OS. He sees a nurse practitioner in [place] Offered for him to establish with a F processing rep in [place] Return to clinic in 12 months for [...] others. I have seen and examined Gianfranco Leblanc. I have discussed the case and the management of this patient's care with the Resident/Fellow, if applicable. I also have reviewed and agree with the assessment and plan as stated above and agree with all of its relevant components. Radha Perez MD 02/17/22 documented in this encounter [facility] Evaluation + Plan note No data available for this section [facility] Evaluation note Diagnosis Nuclear senile cataract of [...] by other means [facility] Diagnosis 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, left- Primary [...] both upper eyelids [facility] Diagnosis 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, left- Primary [...] stated as uncontrolled [facility] noteNo assessment [facility] Work Phone: Evaluation note* Diagnosis OPENED IN ERROR- Primary To allow closing an encounter opened in error (used in SmartSet) [facility]* Diagnosis Type 2 diabetes mellitus [...] and sense organs [facility] Diagnosis Elevated prostate specific antigen (PSA)- Primary BPH without obstruction/lower urinary tract symptoms Hypertrophy of prostate without urinary obstruction and other lower urinary tract symptoms (LUTS) [facility] Diagnosis Elevated prostate specific antigen (PSA)- Primary APPOINTMENT CANCELLED Retinal hemorrhage, left eye- Primary Retinal hemorrhage History of retinal detachment Personal history of other disorders of nervous system and sense organs Epiretinal membrane (ERM) of left eye [facility]* Diagnosis Retinal hemorrhage, left eye- Primary Retinal hemorrhage History of retinal detachment Personal history of other disorders of nervous system and sense organs Epiretinal membrane (ERM) of left eye Nuclear senile cataract of right eye Pseudophakia, left eye Lens replaced by other means History of YAG laser capsulotomy of lens, left [facility]* Diagnosis Elevated prostate specific antigen (PSA)- Primary Prostate cancer (HCC) Malignant neoplasm of prostate Encounter for observation for other suspected diseases and conditions ruled out documented [facility]* Diagnosis Capsulitis of metatarsophalangeal (MTP) joint of right foot- Primary Diabetes mellitus due to underlying condition with diabetic polyneuropathy, unspecified whether chcf insulin use (CMS/HCC) Pain due to onychomycosis of toenails of both feet Venous insufficiency Unspecified venous (peripheral) insufficiency [facility]* Diagnosis Seborrheic keratosis- Primary Lentigines Other rosacea History of SCC (squamous cell carcinoma) of skin Personal history of other malignant neoplasm of skin Capillary angioma Nevus, non-neoplastic Epidermal inclusion cyst Sebaceous cyst documented [facility]* Diagnosis Capsulitis of metatarsophalangeal (MTP) joint of right foot- Primary Diabetes mellitus due to underlying condition with diabetic polyneuropathy, unspecified whether intermodal customer service insulin use (CMS/HCC) Pain due to onychomycosis of toenails of both feet Venous insufficiency Unspecified venous (peripheral) insufficiency [facility] Dis[facility] instructions No data available for this section [facility] No data available for this section [facility] [place] Medications Administered Section Active [...] 1 Drop, BOTH EYES, DIRECTED, Starting on 02/17/22 at 1330, Until Kendra 02/18/22 at 0129, [...] the event of a Fluress shortage, administer Bowie-Fluor 1 drop into both eyes as directed [...] FoundDocuments on File Type Date Recorded Patient Slot Machine Key Person Expl anation Advance Directive(s) 02/07/2017 9:56 AM [...] 3D RENDERING W/INTERP&POSTPROC DIFF WORK STATION Ale Noriega MD [address] [place] [address] Mr Imaging [facility] Referral ID Status Reason Start Date Expiration Date Visits Requested Visits Authorized [id number] New Request Auto-Generat ed Referral 4 06/30/2025 1 1 Specialty Diagnoses / Procedures Referred By Ever kaiser Referred To Contact MR IMAGING Diagnoses Encounter for observation for other suspected diseases and conditions ruled out Procedures MRI PROSTATE WO/W IVCON MRI PELVIS W/O & W/CONTRAST MATERIAL Ale Noriega MD [address] [place] [address] Mr Imaging [facility] Referral ID Status Reason Start Date Expiration Date Visits Requested Visits Authorized [id number] New Request Auto-Generat ed Referral 4 06/30/2025 1 1 Additional Source Comments Source Comments (unrecognize d section and content) In the event this informatio n is protected by the Federal Confidentiality of Alcohol and Drug Abuse Patient Records regulations: The Federal rules restrict any use of the information to criminally investigate or prosecute any alcohol or drug abuse patient.[facility] the event this information is protected by the Federal Confidentiality of Alcohol and Drug Abuse Patient Records regulations: The Federal rules restrict any use of the information to criminally investigate or prosecute any alcohol or drug abuse patient.[facility] HospitalIn the event this information is protected by the Federal Confidentiality of Alcohol and Drug Abuse Patient Records regulations: The Federal rules restrict any use of the information to criminally investigate or prosecute any alcohol or drug abuse patient.[facility] HospitalIn the event this information is protected by the Federal Confidentiality of Alcohol and Drug Abuse Patient Records regulations: The Federal rules restrict any use of the information to criminally investigate or prosecute any alcohol or drug abuse patient.[facility] HospitalIn the event this information is protected by the Federal Confidentiality of Alcohol and Drug Abuse Patient Records regulations: The Federal rules restrict any use of the information to criminally investigate or prosecute any alcohol or drug abuse patient.[facility] HospitalIn the event this information is protected by the Federal Confidentiality of Alcohol and Drug Abuse Patient Records regulations: The Federal rules restrict any use of the information to criminally investigate or prosecute any alcohol or drug abuse patient.[facility] HospitalIn the event this information is protected by the Federal Confidentiality of Alcohol and Drug Abuse Patient Records regulations: The Federal rules restrict any use of the information to criminally investigate or prosecute any alcohol or drug abuse patient.[facility] HospitalIn the event this information is protected by the Federal Confidentiality of Alcohol and Drug Abuse Patient Records regulations: The Federal rules restrict any use of the information to criminally investigate or prosecute any alcohol or drug abuse patient.[facility] HospitalIn the event this information is protected by the Federal Confidentiality of Alcohol and Drug Abuse Patient Records regulations: The Federal rules restrict any use of the information to criminally investigate or prosecute any alcohol or drug abuse patient.[facility] HospitalIn the event this information is protected by the Federal Confidentiality of Alcohol and Drug Abuse Patient Records regulations: The Federal rules restrict any use of the information to criminally investigate or prosecute any alcohol or drug abuse patient.[facility] HospitalIn the event this information is protected by the Federal Confidentiality of Alcohol and Drug Abuse Patient Records regulations: The Federal rules restrict any use of the information to criminally investigate or prosecute any alcohol or drug abuse patient.[facility] HospitalIn the event this information is protected by the Federal Confidentiality of Alcohol and Drug Abuse Patient Records regulations: The Federal rules restrict any use of the information to criminally investigate or prosecute any alcohol or drug abuse patient.[facility] HospitalIn the event this information is protected by the Federal Confidentiality of Alcohol and Drug Abuse Patient Records regulations: The Federal rules restrict any use of the information to criminally investigate or prosecute any alcohol or drug abuse patient.[facility] HospitalIn the event this information is protected by the Federal Confidentiality of Alcohol and Drug Abuse Patient Records regulations: The Federal rules restrict any use of the information to criminally investigate or prosecute any alcohol or drug abuse patient.[facility] HospitalIn the event this information is protected by the Federal Confidentiality of Alcohol and Drug Abuse Patient Records regulations: The Federal rules restrict any use of the information to criminally investigate or prosecute any alcohol or drug abuse patient.[facility] Reason for Visit (unrecogniz ed section [...] Reason Comments Toenail Care Non DM Nails Reason Comments DM Foot Care Dm nail care Care Teams (unrecognized sec tion and content) Industrial Plant Custodian Relationship Specialty Start Date End Date Raul Sun MD PCP - General Family Practice 02/11/21 Industrial Plant Custodian Relationship Specialty Start Date End Date Raul Sun MD PCP - General Family Practice 02/11/21 Industrial Plant Custodian Relationship Specialty Start Date End Date Raul Sun MD PCP - General Family Practice 02/11/21 Industrial Plant Custodian Relationship Specialty Start Date End Date Raul Sun MD PCP - General Family Medicine 02/11/21 Team Status: Inactive Member Role Status Dates Jf Walters MD Attending Provider Active AMMY Darling Primary Care Provider Active Team Status: Active Member Role Status Dates AMMY Darling Primary Care Provider Active Industrial Plant Custodian Relationship Specialty Start Date End Date Raul Sun MD PCP - General Family Medicine 02/11/21 Industrial Plant Custodian Relationship Specialty Start Date End Date Raul Sun MD PCP - General Family Medicine 02/11/21 Industrial Plant Custodian Relationship Specialty Start Date End Date Raul Sun MD PCP - General Family Medicine 02/11/21 Daina Judge CNP [address] [place] [facility] [place] [place] [address] Referring Internal Medicine 10/15/23 Industrial Plant Custodian Relationship Specialty Start Date End Date Raul Sun MD PCP - General Family Medicine 02/11/21 Daina Judge, HIRO [address] [place] [facility] [place] [place] [address] Referring Internal Medicine 10/15/23 Industrial Plant Custodian Relationship Specialty Start Date End Date Raul Sun MD PCP - General Family Medicine 02/11/21 Daina Judge, HIRO [address] [place] [facility] [place] [place] [address] Referring Internal Medicine 10/15/23 Industrial Plant Custodian Relationship Specialty Start Date End Date Raul Sun MD PCP - General Family Medicine 02/11/21 Daina Judge, HIRO [address] [place] [facility] [place] [place] [address] Referring Internal Medicine 10/15/23 Industrial Plant Custodian Relationship Specialty Start Date End Date Raul Sun MD PCP - General Family Medicine 02/11/21 Daina Judge, HIRO [address] [place] [facility] [place] [place] [address] Referring Internal Medicine 10/15/23 Industrial Plant Custodian Relationship Specialty Start Date End Date Raul Sun MD PCP - General Family Medicine 02/11/21 Daina Judge, PRINTER REPAIR TECHNICIAN [address] [place] [address] Referring Internal Medicine 10/15/23 Industrial Plant Custodian Relationship Specialty Start Date End Date Raul Sun MD PCP - General Family Medicine 02/11/21 Daina Judge, PRINTER REPAIR TECHNICIAN [address] [place] [address] Referring Internal Medicine 10/15/23 Industrial Plant Custodian Relationship Specialty Start Date End Date Reuben Judge MD [address], [place] [id number] PCP - General Family Medicine 10/11/24 Industrial Plant Custodian Relationship Specialty Start Date End Date Reuben Judge MD [address], [place] [id number] PCP - General Family Medicine 10/11/24 Goals (unrecognized section and content) Goals may be documented in a n alternate section (unrecognized sect ion and content) No Status Records FoundNo Status Records FoundNo Status Records FoundNo Status Records FoundNo Status Records FoundNo Status Records FoundNo Status Records Found INFORMATION SOURCE (unrecogn ized section and content) DATE CREATED AUTHOR 07/29/2022 [facility] DATE CREATED AUTHOR AUTHOR'S ORGANIZ ATION 10/28/2022 [facility] DATE CREATED AUTHOR AUTHOR'S ORGANIZ ATION 12/01/2022 [facility] DATE CREATED AUTHOR AUTHOR'S ORGANIZ ATION 01/01/2024 [facility] DATE CREATED AUTHOR AUTHOR'S ORGANIZ ATION 06/06/2024 [facility] DATE CREATED AUTHOR AUTHOR'S ORGANIZ ATION 10/13/2024 [facility] DATE CREATED AUTHOR AUTHOR'S ANSON FREEMAN 10/21/2024 [facility] FOR RECORDS PERTAINING TO PATIENTS WHO [...] BE BASED ON THE PRIMARY CLINICAL RECORDS. [employer] provides no warranty or guarantee of the accuracy or completeness of information in this document.
== END 2024-11-02 15:34 | disposition home or self-care (01) ==
LOC: LAB 15:35
PROVIDERS: PCP Nurse Practitioner Family
DX: R06.09 Other forms of dyspnea (principal)
CPT/HCPCS: 36415; 83880

== ENCOUNTER 2024-12-13 13:53 | Outpatient (OUT) | payer MEDICARE, SELFPAY ==
--- NOTE | 2024-12-13 14:00 | CA_ITS ---
Patient Name: GIANFRANCO LEBLANC MR#: [id number] : 1950 Exam Date: 12/13/2024 Ordering Doctor: BELÉN BRUMFIELD ECHOCARDIOGRAM REPORT PROCEDURE: CA ECHO DOPPLER COMPLETE INDICATIONS: Dyspnea on exertion, smoker, hypertension, diabetes COMPARISON: None. DESCRIPTION: COMPLETE ECHOCARDIOGRAM Real-time transthoracic echocardiography with 2D, M-mode, spectral and color flow Doppler performed. QUALITY: Technical quality was good. LEFT VENTRICLE: Normal chamber size. Thickened septal wall. Mild concentric hypertrophy. Normal systolic function. LV EF: Normal left ventricular ejection fraction, (>55%). DIASTOLIC: Normal diastolic function. ATRIAL SEPTUM: Visually appears intact. LEFT ATRIUM: Normal chamber size. RIGHT ATRIUM: Normal chamber size. RIGHT VENTRICLE: Normal chamber size. Normal right ventricular systolic function. TRICUSPID VALVE: Normal mobility and thickness. No stenosis with trivial regurgitation. Doppler studies reveal mildly (35-45) elevated right sided pressures. RVSP is 38 mmHg MITRAL VALVE: Normal mobility and thickness. No evidence of mitral valve stenosis. There is no mitral annular calcification. Trivial mitral regurgitation. AORTIC VALVE: Normal trileaflet appearance. No visible sclerosis. Normal leaflet mobility. No evidence of aortic valve stenosis. No aortic regurgitation. AORTIC ROOT: Normal diameter and appearance, measuring 3.1 cm. Ascending aorta is normal in size, measuring 3.2 cm. PULMONIC VALVE: Normal thickness and mobility. No stenosis. No regurgitation. PERICARDIUM: No evidence of pericardial effusion. IVC: IVC is normal in size, does not fully collapse. PLEURA: CONCLUSION: 1. Mild concentric left ventricular hypertrophy with normal systolic function. Estimated LVEF is 55 to 60%. 2. Normal right ventricular size and systolic function. 3. Normal diastolic function. 4. No significant valvular dysfunction. 5. Mildly elevated right-sided pressures. Adult Echocardiography Procedure Report Left Ventricle LVEDD (3.7 - 5.6 cm): 4.97 cm LVESD (2.2 - 4.0 cm): 3.16 cm LVIVS thickness (0.6 - 1.2 cm): 1.25 cm LVPW thickness (0.5 - 1.0 cm): 0.92 cm e': 0.12 m/s E - e': 4.40 LVOT Max Gradient: 2.82 mm[Hg] LVOT Area (cm2): 0.84 m/s Peak Velocity (LVOT): 0.84 m/s Mean Velocity (LVOT): 0.54 m/s LVOT Diameter 2.34 cm Left Atrium LA Volume Index (2D A2C): 26.04 ml/m2 Left Atrium Systolic Dimension: 3.78 cm Mitral Valve MV E to A Ratio: 0.90 Mitral Valve A-Wave Peak Velocity: 0.60 m/s Mitral Valve E-Wave Peak Velocity: 0.54 m/s Right Ventricle Aorta AO Root Diam: 3.14 cm Ascending Ao Diam: 3.18 cm Aortic Valve AoV Area (Peak Gil): 2.89 cm2, 2.89 cm2 AoV Area (VTI): 3.10 cm2, 3.10 cm2 Peak Velocity(Antegrade Flow): 1.25 m/s Peak Gradient(Antegrade Flow): 6.25 mm[Hg] Mean Velocity(Antegrade Flow): 0.79 m/s Mean Gradient(Antegrade Flow): 2.91 mm[Hg] Velocity Time Integral: 25.15 cm Tricuspid Valve Peak Velocity (Regurgitant Flow): 2.75 m/s, 2.72 m/s Pulmonic Valve Mean Gradient: 1.70 mm[Hg] Mean Velocity: 0.60 m/s Peak Velocity: 0.98 m/s, 0.93 m/s Peak Gradient: 3.49 mm[Hg], 3.86 mm[Hg] Right Atrium Right Atrium Systolic Pressure: 39.32 ml, 39.32 ml Dictated by: Lance Mei M.D. on 12/14/2024 at 09:49 Approved by: Lance Mei M.D. on 12/14/2024 at 09:51
== END 2024-12-13 13:54 | disposition home or self-care (01) ==
LOC: CARD 13:54
PROVIDERS: PCP Nurse Practitioner Family
DX: R06.09 Other forms of dyspnea (principal)
CPT/HCPCS: 93306

== ENCOUNTER 2025-01-18 15:26 | Outpatient (OUT) | payer MEDICARE, SELFPAY ==
--- OUTSIDE RECORDS SUMMARY | 2025-01-18 15:44 | XMS_ITS | CCD ---
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 Name Role Phone Raul Sun MD Primary Care Provider [phone] DAINA JUDGE Primary Care Physician [phone] MD Jf Walters Attending Provider AMMY Judge Primary Care Provider SELENA ., DR RHOADES Admitting Unavailable SELENA [...] Unavailable Jf WALTERS Attending Unavailable DAINA JUDGE Referring Unavailable Jf WALTERS Attending Unavailable Jf WALTERS Admitting Unavailable Raul Sun MD Primary Care Provider [phone] Daina Judge CNP Unavailable Raul Sun MD [...] Unavaila RAUL Reeder Primary Care Unavailable ALE NORIEGA Attending Unavailable RAUL SUN Primary Care Unavailable RAUL SUN Primary Care Unavailable Unavailable Primary Care Provider Unavailfestus Judge MD, Reuben Lyons Primary Care Provider [phone] BRANDON BRUMFIELD Attending Unavailable BRANDON BRUMFIELD Attending Unavailable HILDA HA Attending Unavailable YADEN LLAMAS Attending Unavailable KAIA OLGUIN Attending Unavailable JUAN MANUEL CROW Attending Unavailable KAIA OLGUIN Attending Unavailable CIARAN CAIN Attending Unavailable CIARAN CAIN Attending Unavailable DANNIE LAWSON Attending Unavailable YAS CIARAN Referring Unavailable JUAN MANUEL CROW Attending Unavailable ROGERIO LANE Attending Unavailable JUAN MANUEL CROW Attending Unavailable Daina Judge Primary Care Unavailable Dannie Greer Attending Unavailable Dannie Greer Admitting Unavailable Allergies Allergy Classification Reported Allergen(s) Allergy Type Date of Onset Reaction(s) Facility (17 sources) Penicillins; Translations: [PENICILLINS] Drug Allergy 7 Rash [facility] (5 sources) Penicillin; Translations: [penicillin] Drug Allergy 2 Unknown skin reaction [facility] (19 sources) amLODIPine; Translations: [AMLODIPINE] Drug Allergy 4 Swelling [facility] Work Phone: (18 sources) Penicillin G Drug Allergy 3 Unknown [facility] (18 sources) Penicillins Drug Allergy 7 Other, Rash, Unknown [facility] (1 source) amLODIPine Drug Allergy 5 [facility] (1 source) Penicillins Drug allergy (disorder) 2 [facility] Medications Current Medications Medication Drug Class(es) Dates Sig (Normalized) Sig (Original) [id number] 200 actuat albuterol 0.09 mg/actuat metered dose inhaler (20 sources) beta2-Adrenergic Agonist Start: 04-17-2023 albuterol HFA (PROVENTIL HFA, VENTOLIN HFA) 90 mcg/actuation inhaler 04/17/2023 Active Ventolin HFA 108 (90 Base) MCG/ACT inhaler every 4 (four) hours Active amLODIPine 5 mg oral tablet (20 sources) Dihydropyridine Calcium Channel Rosie Start: 01-14-2021 take 1 tablet by mouth once daily amLODIPine (NORVASC) 5 mg tablet Take 5 mg by mouth once daily. 01/14/2021 Active Comment on above: Take 5 mg by mouth o nce daily. atenolol 50 mg oral tablet (20 sources) beta-Adrenergic Rosie Start: 11-02-2018 End: 01-08-2025 atenolol (TENORMIN) 50 mg tablet 11/02/2018 Active [...] (BUS PAR) 5 mg tablet 11/02/2018 Active carvedilol 12.5 mg oral tablet (8 sources) alpha-Adrenergic Rosie, beta-Adrenergic Rosie take 1 tablet by mouth at dinner carvedilol (Coreg) 12.5 MG tablet TAKE 1 TABLET BY MOUTH WITH BREAKFAST AND EVENING MEAL Active cholecalciferol 0.05 mg oral capsule (20 sources) Vitamin D cholecalciferol (Vitamin D-3) 50 MCG (2000 UT) capsule Take by mouth Active Cholecalciferol, Vitamin D3, (VITAMIN D-3) 2,000 unit cap Take by mouth. 0 Active Comment on above: Take by mouth. clobetasol propionate 0.5 mg/ml topical cream (18 sources) Corticosteroid Start: 01-25-2022 clobetasol (Temovate) 0.05 % cream 01/25/2022 Active Start: 01-25-2022 clobetasol (Te movate) 0.05 % cream apply to bilateral lower legs topically Twice a day as needed for 30 day(s) 01/25/2022 Active diclofenac sodium 75 mg delayed release oral tablet (17 sources) Nonsteroidal Anti-inflammatory Drug Start: 08-28-2024 take 1 tablet by mouth twice daily as needed diclofenac (Voltaren) 75 MG EC tablet Take 75 mg by mouth 2 (two) times a day as needed 08/28/2024 Active Start: 10-09-2023 take 1 tablet by alejandra th every twelve hours diclofenac, EC, (VOLTAREN) 75 mg EC tablet Take 1 tablet by mouth every 12 hours. 10/09/2023 Active Comment on above: Take 1 tablet by alejandra th every 12 hours. FLUoxetine 40 mg oral capsule (20 sources) Serotonin Reuptake Inhibitor take 1 capsule by mouth in the morning FLUoxetine (PROzac) 40 MG capsule Take 40 mg by mouth in the morning. Active Comment on above: Take 40 mg [...] (one) time each day at the same time Active Comment on above: Take 10 mg by mouth once daily. losartan potassium 50 mg oral tablet (8 sources) Angiotensin 2 Receptor Rosie Start: take 1 tablet by mouth in the morning losartan (Cozaar) 50 MG tablet Take 50 mg by mouth in the morning and 50 mg before bedtime. 12/02/2024 Active metFORMIN hydrochloride 500 mg oral tablet (20 sources) Biguanide Start: 9 metFORMIN (GLUCOPHAGE) 500 mg tablet 11/02/2018 Active Minocycline (15 sources) Tetracycline-class Drug MINOCYCLINE HCL (MINOCYCLINE ORAL) Take by mouth. Active MINOCYCLINE HCL (MINOCYCLINE ORAL) Take by mouth. 0 Active Comment on above: Take by mouth. naltrexone hydrochloride 50 mg oral tablet (20 sources) Opioid Antagonist Start: 11-03-19 19 naltrexone [...] with food spironolactone 25 mg oral tablet (17 sources) Aldosterone Antagonist Start: 06-03-20 take 1 tablet by mouth in the morning spironolactone (Aldactone) 25 MG tablet Take 25 mg by mouth in the morning. 06/03/2024 Active Start: 09-21-2023 take 1 tablet by alejandra th once daily in the morning spironolactone (ALDACTONE) 25 mg tablet Take 25 mg by mouth every morning. 09/21/2023 Active Comment on above: Take 25 mg by mouth every morning. sulfamethoxazole 800 mg / trimethoprim 160 mg oral tablet (2 sources) Dihydrofolate Reductase Inhibitor Antibacterial, Sulfonamide Antimicrobial Start: 12-12-19 End: 12-22-19 take 1 tablet by mouth once in the morning, then take 1 tablet by mouth once at bedtime sulfamethoxazole- trimethoprim (Bactrim DS) 800-160 MG per tablet Indications: Epidermal inclusion cyst Take 1 tablet by mouth in the morning and 1 tablet before bedtime. Do all this for 10 days. 20 tablet 12/11/2024 12/21/2024 Active traZODone hydrochloride 150 mg oral tablet (20 [...] fluorescein-benoxinate 0.25- 0.4 % 1 Drop (FLURESS) doxycycline monohydrate 100 mg oral capsule (20 sources) Tetracycline-class Drug Start: 11-30-2024 End: 01-08-2025 take 1 capsule by mouth twice daily doxycycline (Monodox) 100 MG capsule Indications: EIC (epidermal inclusion cyst) Take 1 capsule, by mouth bid, x 10 days 20 capsule 11/30/2024 01/08/2025 Discontinued (Therapy completed) Start: 01-26-2024 End: 10-02-2024 take 1 capsule by mouth once daily doxycycline (Monodox) 50 MG capsule Indications: Other rosacea Take 1 capsule, by mouth, once daily, 30 days 30 capsule 11 10/02/2024 Active Start: 01-25-2022 take 1 capsule by cox branson once daily doxycycline (VIBRAMYCIN) 50 mg capsule Take 50 mg by mouth once daily. 01/25/2022 Active Comment on above: Take 50 mg by mouth once daily. 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] Onset: 5 Chronic Diabetes mellitus with complications (3 sources) Polyneuropathy due to diabetes mellitus; Translations: [Diabetes mellitus due to underlying condition with diabetic polyneuropathy] 07-05-2024 Chronic Diabetes mellitus without complication (20 sources) Diabetes mellitus type 2 without retinopathy; Translations: [Type 2 diabetes mellitus without complications] Onset: 1 Chronic Disorders of lipid metabolism (3 sources) Hyperlipidemia, unspecified; Translations: [Mixed hyperlipidemia] Onset: 2 Chronic Essential hypertension (5 sources) Hypertensive disorder; Translations: [Essential (primary) hypertension] Onset: 4 08-08-2019 Chronic Fluid and electrolyte disorders (2 sources) Hypo-osmolality and hyponatremia; Translations: [Hypo-osmolality and hyponatremia] Onset: 5 Episodic Hyperplasia of prostate (6 sources) Benign prostatic hypertrophy with outflow obstruction; Translations: [Benign prostatic hyperplasia with lower urinary tract symptoms] Onset: 2 Chronic Mood disorders (3 sources) Depressive disorder 08-08-2019 Chronic Mycoses (3 sources) Pain in toe; Translations: [Tinea unguium] 07-05-2024 Episodic Open wounds of head; neck; and trunk (9 sources) Traumatic and/or non-traumatic injury of back; Translations: [Unspecified open wound of unspecified back wall of thorax without penetration into thoracic cavity, initial encounter] Onset: 5 01-08-2025 Episodic Other circulatory disease (2 sources) Spider nevus; Translations: [Nevus, non-neoplastic] 10-02-2024 Episodic Other connective tissue disease (3 sources) Capsulitis of metatarsophalangeal joint of right foot; Translations: [Other enthesopathy of right foot and ankle] 07-05-2024 Episodic Other diseases of veins and lymphatics (3 sources) Vascular insufficiency; Translations: [Venous insufficiency (chronic) (peripheral)] 07-05-2024 Episodic Other eye disorders (15 sources) Chorioretinal scar of left eye; Translations: [Unspecified chorioretinal scars, left eye] Onset: 7 11-10-2016 Chronic Other eye disorders (2 sources) History of kjbfbcl-oerviryo-noezkf (YAG) laser capsulotomy of lens; Translations: [Cataract extraction status, left eye] 06-06-2023 Episodic Other inflammatory condition of skin (20 sources) Rosacea; Translations: [Other rosacea] Onset: 3 [...] seborrheic keratosis] 10-03-2024 Episodic Other skin disorders (15 sources) Epidermoid cyst; Translations: [Epidermal cyst] Onset: 5 10-02-2024 Episodic Residual codes; unclassified (2 sources) Pain; Translations: [Pain, unspecified] 12-11-2024 Episodic Residual codes; unclassified (2 sources) Localized [...] conditions (not mental disorders or infectious disease) (15 sources) Raised prostate specific antigen; Translations: [Elevated prostate specific antigen [PSA]] Onset: 05-24-2022 Episodic Residual codes; unclassified (2 sources) Tobacco use; Translations: [Tobacco use] Onset: 09-19-2024 Episodic Unclassified (1 source) Patient's noncompliance with other medical treatment and regimen due to unspecified reason; Translations: [Patient's noncompliance with other medical treatment and regimen due to unspecified reason] Onset: 09-19-2024 Results Test Name Value Interpretation Reference Range Facility GLUCOSE POCT GLUCOMETERSon 0 01-09-2025 COMMEMT1 Glu2: Cleaned Meter [facility] Glucose [Mass/Vol] 150 mg/dL [facility] Comment on above: Random Glucose Refer ence Range is dependent on time and content of last meal. Glucose of more than 200 mg/dL in a nonstressed, ambulatory subject supports the diagnosis of Diabetes Mellitus. [facility] Glucose Poct Glucometerson 0 01-09-2025 Commemt1 Glu2: Cleaned Meter Normal [facility] Comment on above: Result Comment: PERF ORMED BY: [facility] [address] [place] [address] PATHOLOGIST SUMAC TANNER STEVE CROWLEY M.D. Performed By: #### G LULS #### Point of Care testing , Glucose [Mass/Vol] 150 mg/dL Normal [facility] Comment on above: Result Comment: [facility] Glucose Reference Range is dependent on time and content of last meal. Glucose of more than 200 mg/dL in a nonstressed, ambulatory subject supports the diagnosis of Diabetes Mellitus. Performed By: #### G LULS #### Point of Care testing , Bhavesh 01-09-2025 L ------ Specimen: [id number] Received: 01/10/25 Status: JOSEPH Purcell Num: [id number] Spec Type: Surgical Subm Dr: Dannie Greer MD Tissues: A Debridement-Skin/Other Than Skin (PRODUCTS OF DEBRIDEMENT) Procedures: Freddy GATICA/Ishmael Ansari Age/ Patient Sex Location Account Attending Physician Gianfranco Leblanc 74/M [place] [id number] Dannie Greer MD SPEC NUM: [id number] RECD: 01/10/25 STATUS: JOSEPH PURCELL NUM: [id number] GREG: 01/09/25 [facility] DR: Dannie Greer MD ENTERED: 01/10/[address] [facility] [address]: SPEC TYPE: Surgical DEPT: S ENTERED BY: [id number] REC BY: [id number] ORDERED: EN, Gross/Micro L3 ORDERED: EN, Gross/Micro L3 Pathological Diagnosis Skin, back, debridement: - Apparently severe acute necrotizing inflammation of the epidermis and the degenerated dermis of almost entire examined sections Clinical Information Back mass Gross Description Part A is received in formalin labeled with the patients name, date of , and products of debridement is an ovoid portion of delaney-green to purple plaque-like material, 3.7 x 3 x 0.7 cm in thickness. Serial sections reveal delaney-pink to purple-green, dull and indurated cut surfaces. Reed Maker sections are submitted in a single cassette. (1, , [id number]) Microscopic Description Microscopic examination is performed Specimen: [id number] Received: 01/10/25 Status: JOSEPH Purcell Num: [id number] Spec Type: Surgical Subm Dr: Dannie Greer MD Tissues: A Debridement-Skin/Other Than Skin (PRODUCTS OF DEBRIDEMENT) Procedures: Freddy GATICA/Micro L3 Patient: VeronicaGianfranco [id number] (Continued) Specimen: [id number] Received: 01/10/25 (Continued) Signed (signature on file) Charlie Benoit MD 01/11/25 1258 Specimen: Received: 01/10/25 Status: JOSEPH Purcell Num: [id number] Spec Type: Surgical Subm Dr: Dannie Greer MD Tissues: A Debridement-Skin/Other Than Skin (PRODUCTS OF DEBRIDEMENT) Procedures: Freddy GATICA/Ishmael L3 Patient: Gianfranco Leblanc [id number] (Continued) Specimen: Received: 01/10/25 (Continued) CPT Codes 74054 Specimen: [id number] Received: 01/10/25 Status: JOSEPH Purcell Num: [id number] Spec Type: Surgical Subm Dr: Dannie Greer MD Tissues: A Debridement-Skin/Other Than Skin (PRODUCTS OF DEBRIDEMENT) Procedures: Freddy GATICA/Ishmael L3 Patient: Gianfranco Leblanc [id number] (Continued) Signed (signature on file) Charlie Benoit MD 01/11/25 1258 [facility] 36on 12-19-2024 36 Phone call from Arya , patient states he is not taking the Atenolol or the Potassium. Normal [facility] Telephoneon 12-19-2024 Telephone [id number] Pan Leblanc 1950 M Date Provider Department Center 12/19/2024 [id number] PATRICIA JARAD Lepe Family History Problem Relation Age of Onset Coronary artery disease Father Stroke Father Family Status - Relation Status Age at Mother Father Normal [facility] Office Visiton 12-17-2024 Follow-up visit [id number] Pan Leblanc 1950 M Date Provider Department Center 12/17/2024 AYDEN AGUILAR JARAD Lepe Family History Problem Relation Age of Onset Coronary artery disease Father Stroke Father Family Status - Relation Status Age at Mother Father Level of Service:35090 DE OFFICE/OUTPATIENT ESTABLISHED MOD MDM 30 MIN Normal [facility] Office Visiton 11-02-2024 Follow-up visit [id number] Pan Leblanc 1950 M Date Provider Department Center 11/02/2024 [id number]-CFUEMLBRANDON HORAN JARAD Lepe Family History Problem Relation Age of Onset Coronary artery disease Father Stroke Father Family Status - Relation Status Age at Father Level of Service:38759 DE OFFICE/OUTPATIENT ESTABLISHED LOW MDM 20 MIN Normal [facility] 36on 10-19-2024 36 Brandon Brumfield CNP Cardiology [...] The patient does not have an established immunology specialist. Given the severity of hyponatremia and the potential for further decline, which may lead to neurological complications, a referral to nephrology is warranted for further assessment and long-term electrolyte management. I will continue to coordinate care and adjust management based on the results of this workup. [facility] Orders Onlyon 10-19-2024 Orders Only [id number] Pan Leblanc 1950 M Date Provider Department Center 10/19/2024 BRANDON ALEXANDER Family History Problem Relation Age of Onset Coronary artery disease Father Stroke Father Family Status - Relation Status Age at Father [facility] Office Visiton 09-19-2024 Follow-up visit [id number] Pan Leblanc 1950 M Date Provider Department Center 09/19/2024 BRANDON ALEXANDER Family History Problem Relation Age of Onset Coronary artery disease Father Stroke Father Family Status - Relation Status Age at Father Level of Service:48089 DE OFFICE/OUTPATIENT ESTABLISHED MOD MDM 30 MIN [facility] 05-31-2024 HIRON Telephone (UROLLN) -- GIANFRANCO LEBLANC ([id number]) 1950 M Date Time Provider Department 05/31/24 [...] Patient stated he has no car or refuse driver at the moment- does not know when he would be able to come in to see you. Pt explained his Urology provider, Dr Barroso at [facility] scheduled him an MRI and he was [...] Encounter Status:Closed by PATY LACEY on 06/01/24 [facility] 05-25-2024 SIDDHARTH Telephone (ABDULKADIR) -- GIANFRANCO LEBLANC ([id number]) 1950 M Date Time Provider Department 05/25/24 ALE NORIEGA During your visit today, we recorded the following information about you: Ale Noriega MD 05/25/2024 7:18 AM Signed Please notify patient his PSA is very high and he is at high risk of having prostate cancer. he needs to schedule his prostate biopsy unless he had it done else where PSA from [facility] on 05-18-24 = 16.17 (normal values 0-4) Can be done in office under local or in ASC under [facility] MD Sarthak Pham Nicole, LPN 05/25/2024 9:05 AM Signed Call placed to patient in regards to message below. LVMM for patient to return call back to [phone], in regards to his recent lab results and orders on how Dr. Noriega would like to proceed. Niya De León LPN 05/30/2024 9:07 AM Signed Call placed to patient in regards to message below. LVMM for patient to return call to [phone] in regards to lab results and how [...] Encounter Status:Closed by ALE NORIEGA on 05/25/24 [facility] Office Visiton 02-09-2024 Follow-up visit [id number] Pan Leblanc 1950 M Date Provider Department Center 02/09/2024 120-HILDA HA CARD [facility] Family History Problem Relation Age of Onset Coronary artery disease Father Stroke Father Family Status - Relation Status Age at Father Level of Service:44924 DE OFFICE/OUTPATIENT ESTABLISHED LOW MDM 20 MIN Normal [facility] OCT MACULA CIRRUS OU (BOTH E YES)on 12-27-2023 [facility] Radiology Study observation (narrative) [facility] CNPNon 12-08-2023 CNPN Telephone (UROLLN) -- GIANFRANCO LEBLANC ([id number]) 1950 M Date Time Provider Department 12/08/23 [...] anesthesia or in ASC under MAC ( [facility]) He can come to pickler helper flyer on prostate bx To update me [...] Encounter Status:Closed by ALE NORIEGA on 12/08/23 [facility] Telephone (UROLLN) -- ANGELGIANFRANCO CAROLINA ([id number]) 1950 M Date Time Provider Department 12/08/23 ALE NORIEGA During your visit today, we recorded the following information about you: Ale Noriega MD 12/13/2023 5:41 PM Signed Please call again and update me Please notify patient that his PSA is rising from 9 to 10.6 He needs prostate bx Can be done in office under local anesthesia or in ASC under MAC ( [facility]) He can come to pickler helper flyer on prostate bx To schedule office [...] Status:Closed by ALE NORIEGA on 12/13/23 Normal [facility] PSA SerPl-mCncon 11-17-2023 Prostate specific Ag [Mass/Vol] 10.58 ng/mL High <2.60 [facility] Comment on above: Order Comment: Speci men Type: BLOOD SPECIMEN Ordering Facility: [facility] Address: [address] [place] [address] Result Comment: Tomas luong PSA test methodology [...] 2003,349:335-42. Performed By: #### 2 [id number] #### [facility] [place] [id number] [address] [place] [address] STATES OF [facility] CNOVon 10-24-2023 CNOV Office Visit (UROLLN ) -- GIANFRANCO LEBLANC ([id number]) 1950 M Date Time Provider Department 10/24/23 2:40 PM ALE NORIEGA During your visit today, we recorded the following information about you: Pulse Blood pressure Weight 79/minute 157/66 97.5 kg Raven Babcock 10/24/2023 3:09 [place] [id number] 72 year old male with nuclear sclerotic [...] 2007 Retinal detachment, left eye, repaired in [place], [place] PAST SURGICAL HISTORY OF hernia [...] nontender, w/o nodules. Good anal sphincter tone. [facility] SYMPTOMS SCORE. Date 10/24/2023 1. [...] Moderate By (more content not included)... Normal [facility] Patient Letter FTon 2022 Patient Letter [facility] (Inserted Image. Prema ble to display) November 30, 2022 [place] [address] GIANFRANCO LEBLANC 1950 Dear Gianfranco Leblanc, Executive [...] Jf Walters M.D., F.A.C.S. [facility] [address] [place] [phone] , OPTION #3 SENT REGULAR/CERTIFIED MAIL [facility] Coding Summary.on 10-27-2022 Coding Summary. [id number] Gh0bWw +PGhlYWQ+OQ1QDGYsG87smDFyk G6nX3KWSDcROpkoDCNPFPsNGpL enmJbBV2yhOTvUTBw IC8+NM3iGHRzAlmxoNAce6D9hR C7H99doe7dUHpyzDS0FBHmHhFt kouhm1dqtYb0GOabZbihTfPm ZWUwzY21GLP6mL03De61aFWvbE Cct4yecIz7CmZrRHFdJVU1cVwc BNgmc9PbRQQiU34gkQRhd5P0 SHAvbMiulAOkWpTkgOT1mA1iSW bkgvied3jihckwPzd6is07vFXb c9N8zUE3T1SracO6HKRhjUKm JuytsDYOdL0nhaopc3fgxcznDo RpSWYsNMe9ZEq9IMGhiWhuQlQm FE56AUQ0NUCbwfUgY9BlMUEm vHksBzR2c1B6Eb6FZ9NULrwjG8 VNTUFSWTwvdGQ+HK33kh11F7Nz QsasUar5RXShQRS2pBO4aY6h VXXwMKzsr2J5yRK8A6IbogWbky 4yn9zuVAKwHYdqN16nvSCtq9U4 KMCfzZH5EEThxHnjCwLsgJ69 Oyc+DLUcpReey6KrVptek6wvb9 xdnJu2SfdcECBuzgKjlFikJGU9 h6KtFr0bVYEncYP6hDP3rW6d XeEiBzO6QRlaV687XzYtyHGzYb qmI69vZ7PuwWG+FCPxPlk3UJRq tAsePN8wE8MfYDJxexfdlTQq rTmiFZ0oNMYqquddORDrsK0uGQ DkY7n7MoOgDeA5EZszM5OwIJYg pofaYy53wD5aRpXyAzK6VMtb U6VifcG7UVPlvPNwMYtkKMU8F6 7mp8M8JMFrKNYkSQQ4lFB1wU0e bGlnbjogbGVmdDsgdmVydGlj CEfcOTexA853UKZmxDlzOgCoZR luZyBEYXRlOiAgMDMvMDgvMjAy MzwvdGQ+WLOoVMY7tWhtQQTe nJXrVNbfYw0qtGpqaJawCP5pLQ QkyuxnGUClfV1lXFFpaOKxxEeg SF0wRLKctoygl806RmVuWYZ6 NIXtuHVfX4KucT0xSzGjMBMfUK QsO6CqgOFrLYhcA886BZglWeQ7 JWZmtzVvW2LbFGDjoHyeBqG7 e6R3Ud0El8YdyftaD5JrkXElVy GwKjioPJb4C0HsBljqgYC+PC90 ANThME08AAi7UIH4oVlcBWbl YBDcM9BfeL6tHbQxVHZcEJKlPe c+PHRhYmxlIHdpZHRoPScxMDAl UnCirVmzZC7oWy0dFAQwPVPd gWlrpVZuIoKhq2udYDBbLLpkNQ 4xmDqlK2EfaIM4GCSet9s8Ls15 L25aL8UfmNM+IUYnjIG9jOT0 nA6sFhHbNwL0FOqpL080PpEhkH NvVlbkl7xsl4pajPx0GjA5EEPx ncGcjDsxRAD2h2IkJg52P80j IHdpZHRoPSIxNSUiIHZhbGlnbj 6qfJ7qFo6+BGGztZF1vVP7dP6w FvFvJqR6IMswZ481SkJxiPEc Jsxbr5dwo5kjcRt9XaFnRGLqas VubZzdRNU9c3CjIp40B0ZzjSdt i9UnAhx9op52fSQee4W1wBO0 N0JpYVWtsorsvHQcyMhpHK3oVT NrswebLZPxvH1fZWQaI9o8CdVx MaG7ULgiP9WzafL7OVMpmQTk LVBxhMHSsN6jlmzff3ayxawyKi TqWAUhCNt1LXh7ETYpnVbbOxMc YEX1AdX6FGQ5jOCqdO9wwWoz vutiiE4jLxp+NBU7dDQweBCOHZ 1lOjwvdGQ+JZMdJHG0tBndMYob WTOjvD3tFZLgC5g2LvMiNzR3 JVseT2LpmmJ0EWRlzGSqOJPsvL EHhM6kssrdg6wspdenJjEqMUUd ZRf5YHw3KARjxVmtDhMiFZZ9 CzQ6ZEA6qDQrvR2qbTwbmtohtE 9wOyc+YubdsYvjXPI0CDv7Q6Ps Hqj1GOHpvCasHM9khWNmGRxq Qc1cqQfbtYtdYJ7jYBCujkxcm4 83WrCcb0qnJTQrfSRtINauQYF3 L61cl6F1AHOuYYDqWSP6vOM4 kT0wiUejhsarwEMbqGhojuKtaG dhJTzcNVedP953DGJsxIcgYsYn LFq8E5YdYfu1IHKpiFarGI8c aGRiRIbpOp3ixUmvtSuoOE2iCQ Ukcnhdb254DtInp6gkPBRhaPHy ZBrjFID9O15pp3R3QWGcZGJf IMR2rHS9pW3fuIgdiucnnPOmzD nhreTvhUgyZNghYPpoD878LASv sVwrCnBlqXv5L1BdLke9WGYk cQpnXH0opRQeTOxmHo2hfGtfdK otUJ5tDKKqrehku181WtJwm1up FDBzhRGuALpxMAG8Y44ur8I0 PWGhNFKfXDZ4sUT3kH1pzZtrou ogbGVmdDsgdmVydGljYWwtYWxp R353IXKrxQxqFeAgaCodguHd CDadKWv5U5IfDtveeUS+PC90YW FzOF42hLEudMPts0uzlPi5GvDv TUVpGPK7fObkBRukn2MwTFKf V98gzFLuy4X7CWPxkZrjyVZyCo ExzPQ2cN5tCVuvebfyz2dwwemq Mzvtr0thsz75bQ78W93dFJgd GTHeJVHcJSVoFIHerRzisk6pwU 9wIi8+VHFpqRM8dOR5iZ1vALPm ZhY0CFnwD538LaGqeWPfUipx l6ibt9trnWx2FcD0UDDhrcIzvW kzTOR8t4FkBx06Q92oOGzcUSBy AQQhCBVpNYShyYzxiq4xfA9c Ii8+QUXptPN2xTO9cZ7qLbAfEy X0ZCnpC189OuNhaKCqCzkgI84w I9CetQK+LFKtMzw7CUTcqShs DS6awTYmXCwvRd4zVYF7JlWgHv CzFGawW1GkIGDiyvzgssnvcAV4 DZQhIPZriY61Sb8pzQxuSUFi fQULtA3erddzm9ojidwlJsGkGR WmNYw3CQj9OTRofQceLwRoCKD8 OgU9HVM1qMYoxL6kfDrfvrzo fC4sR1FrUOXziciaCy32yT5bQv PeFhQ3EOyzYkg+UFVMTEFOTywg JntLK1zRFpyhbRG+PHRkIHN0 uAzqQRcgDWNegG5eAHEkT5q6Gg VwCoX5DIknH6OuFQRinamdZh10 hQ6lPqLdVaI3EZscJ2VafyF6 TGChdZPfVDxlUMT7W01te9W1SE GcVJZuLWC4rJS5nI6srCqboqvn bGVmdDsgdmVydGljYWwtYWxp E986RMMfxPydCcL2PkF7ItU0OZ O2X3CmBea0MWLygXqmAS1ytYNv QGwmJz9shQxygVlaKL9mWOGv vfswKNEkxA3pVZLgpIBabFfuVN 8aRUBrdbnoj291NaTvAMT1DFBd fFOwM1ObhA0jNeEaQBScFBIj K6ZmaNIwZYgzL351KFxwFhV5WU FvacKxZ8PhMISzmZmsXrG7d0H7 Th13DeBVIWEvwvayuFE+PHRk IYV2nIacGFkeOQGdzW1nAEThF7 k2LbZiNfN1LDgqN2RbSEBbzjwg Tw21aZ4oVlTwXeH7MUisW2Gc zbT0BYLipCYtXByvIBA3W42di7 E5VJZjPTZeDII5cHB6wY3kqRvx bjogbGVmdDsgdmVydGljYWwt KUvpS564GEZsxGdnQn2bmZF1V0 RzXxm3DWPpmZcjIO2ckCMdVLfj Wl7czZgwbKgeDC6qYZTnvkbn BLBakC8tTAJdsZYapGwyRV8aQH Awemwmi206BpErBGA9MKWqcHFg U2WziA1kRvTeJVTcCZMjR7Zv iQTsUCxbA245WWnqCnT3KEDnix RvE1PhYMBebQkgAqI6a4V3Ga3A FTGyHDTukHAfOnY4L4OmGzfs dHI+PQ55EDRqKO78rCOmjDArn9 jqsHs5GbZdGZTqXPN7hPqvFJow f5LkPFVlA46luHPmb8K4FSGv gRdwpAPlHsRepIW8eJ9yOZqyzt kvn3nsgpkzVhgbe5ogei40xM03 R80jPOzmZREmNOQaOMPzYUTl mFmrhs7xiE0aBs1+QWXkiRR4lU D6xR6lPaVxUqH3PRfvE037UhLl oSBzAsfla9joa0bjrVa3OaCj WOQlsuThiAujTZJ4m5EzAn30C3 9sIHdpZHRoPSIyMCUiIHZhbGln bb6waH9iRx9+WL1lm7nclv65 aZ11kBJ+ZHUeTHE9xIiiFYbtSA VbsF0nILqcLwK9TVOcXtKuqV16 bAIkFMmyYr1nqQphmNicJN9y VFNzshymv110NyZho4guLRJweM QjGNcuXGC4X18zb5L1SIKvYFCz GLB9oMS7bJ0lbBjmjixsjYFn fLptxrWqdKlsZCorVIrkX241GV WlwSghQkByaXQqO9yarlTBWZ7f OjwvdGQ+QGJvHVB7pBktJYkm HXDadE6xVGVnK6p4PwVrEgC4GL tfP7HrctT7RKWxzGBeBJDcmUHX mZ4ftwkoq7kzzdxtObTlMOFs NCh8DJr2MGEhpXfaHxOoXRU4Hp P1VNJ0lECdlP1dsWmxixdzcZ8w Oyc+RklOOjwvdGQ+PHRkIHN0 nMaxAHibWPIfrD8bDWAoC2z5Ku YiSdK4RCxdI5TzooV9MUCgoNUh TOPtdJUZtZ9qdsqpe8yjiprz DzIwOSAfCLh9YXk5BUNseHmoUz OaUKZ4YgH0VHM1iNIwaX3ouHee vysdeT6oXxx+TVJOOjwvdGQ+ LBPtWGY7rWxeCNtcPOVbfM2yOO IuR2p1LvZjBkF0RFjtX1GvewT5 TWHuySApBLJjbMNEnF2bwzda w2ruuyqfAtOxYRZzSJp7ANq0LQ SliDajPiYoNXX8XmN0RIF3rGIc dU2aoEusxuyrbA4pIlu+UGF5 VJZ0EN02SZ36Y1TiWujtjRApbY U+PHRhYmxlIHdpZHRoPScxMDAl DbTecJnwGZ6aOo6cMQHkOWSu bGxh (more content not included)... Normal [facility] Lab Reportson 10-27-2022 Lab Reports [id number]#1.00CD:127 Normal [facility] Ambulatory Visit Summaryon 0 10-15-2022 Ambulatory Visit Summary GIANFRANCO LEBLANC:1950 Visit Date:10/15/2022 Ambulatory Visit Instructions Your Diagnosis Elevated PSA Benign prostatic hyperplasia (BPH) with post-void dribbling Tests Performed Urnls Dip Stick Auto w/o Microscopy POC 50549 Your Care Team Attending Physician - Jf [...] with SELENA LEONG, STEFANI Seo When: Where: [address] [place] [address]- Medications What When Instructions Unchanged amlodipine (amLODIPine [...] Urnls Dip Stick Auto w/o Microscopy POC 44978 (10/15/2022) Bilirubin Urine Dipstick - Negative Blood Urine Dipstick - Negative Glucose Urine Dipstick - Negative Ketones Urine Dipstick - Negative Leukocytes Urine Dipstick - Negative Nitrite Urine Dipstick - Negative Protein Urine Dipstick - Negative Specific Tal[place]ina Urine Dipstick - 1.010 Urine Appearance Urine [...] of these risk factors: ? Being of -[place] descent. ? Having a family history of prostate cancer. ? If you are age 55?69, talk with your health care provider about (more content not included)... Normal [facility] Patient Educationon 10-15-19 Patient Education Oncology [...] of these risk factors: ? Being of -[place] descent. ? Having a family history of [...] Are older than age 55. ? Are -[place]. ? Have a father, brother, or uncle [...] R (more content not included)... Normal [facility] Urology Office/Clinic Noteon 10-15-2022 Urology Office/Clinic [...] Contact Information SELENA LEONG, Jf Reis, URL [address] [place], [place] [id number]- Additional Instructions: PSA today - await results Patient Education Prostate Cancer Screening IDori, personally scribed for Dr. Walters on 10/15/2022 [...] Father. Immunizations Vaccine Date Status Comments SARSCoV2 mRNA(optcviqcv-bwje-fbhehd ) vac 03/12/2022 Recorded 2022-06-28: TPV70 SARS-CoV-2 [...] Co-Signed: 10/15/22 11:19 EST\.br\Electronically Co-Signed By: Dori Wynne.br\Date and Time Co-Signed: 10/15/22 11:21 EST Creatinine (Bld) [Mass/Vol]O rdered By: fJ Walters on 07-14-2022 Creatinine [Mass/Vol] 0.8 mg/dL 0.6-1.3 [facility] Comment on above: ER/ESD physician is notified/shown all ISTAT results.Critical values may be confirmed by laboratory testing ifdeemed necessary by ER attending doctor. No Panel InformationOrdered By: Jf Walters on 07-14-2022 POC Estimated GFR > 60 [facility] Comment on above: GFR estimated refere nce range: According to KDOQI guidelines, <60 ml/min/1.73m2 is sufficient to diagnose a patient with chronic kidney disease. POC Estimated GFR Non- Amer > 60 [facility] Pre-Certification Formon Pre-Certification Form [id number]#1.00CD:127 Normal [facility] Reportson 07-05-2022 Lab Reports [id number]#1.00CD:127 Normal [facility] Physician Referralon 022 Physician Referral [id number]#1.00CD:127 Normal [facility] Ambulatory Visit Summaryon 08-28-2021 Ambulatory Visit Summary GIANFRANCO LEBLANC :1950 [...] [facility] [address] [place] [address] [phone] Medications What When Instructions Unchanged amlodipine (amLODIPine [...] Historical Records Officeon 06-28-2022 Historical Records Office [id number]#[id number]:127 Normal [facility] Patient Educationon 06-28-20 Patient Education Urology [...] Follow these instructions at home: ? Take jtfo-rjq-knijvcb and prescription medicines only as told by [...] Free PSA 7.1 % Normal [facility] Comment on above: Result Comment: The [...] men. Performed By: #### P SAFREE #### [facility] [address] [place] [address] Dr. Zaira Benoit Prostate specific Ag [Mass/Vol] 6.8 ng/mL Critically high 0.0-4.0 [facility] Comment on above: Result Comment: Bryant PERRYIA methodology. . According to the [place] [employer], Serum PSA should decrease and [...] disease. Performed By: #### P SAFREE #### [facility] [address] [place] [address] Dr. Zaira Benoit PSA, Free 0.48 ng/mL Normal N/A [facility] Comment on above: Result Comment: Bryant SEXTON methodology. Performed By: #### P SAFREE #### [facility] [address] [place] [address] Dr. Zaira Benoit INSULINon 05-13-2022 Insulin 7.8 uIU/mL Normal 2.6-24.9 [facility] Comment on above: Performed By: #### I NSULIN #### [facility] [address] [place] [address] Dr. Zaira Benoit CBC AUTO DIFFon 05-12-2022 BASO # 0.1 103/ul Normal 0.0-0.1 [facility] Comment on above: Performed By: #### C BC #### [facility] [address] [place] [address] Dr. aZira Benoit Basophils/100 WBC (Bld) 0.9 % Normal 0.2-2.0 [facility] Comment on above: Performed By: #### C BC #### [facility] [address] [place] [address] Dr. Zaira Benoit EO # 0.2 103/ul Normal 0.0-0.7 [facility] Comment on above: Performed By: #### C BC #### [facility] [address] [place] [address] Dr. Zaira Benoit Eosinophils/100 WBC (Bld) 2.1 % Normal 0.9-7.0 [facility] Comment on above: Performed By: #### C BC #### [facility] [address] [place] [address] Dr. Zaira Benoit Erythrocyte distribution width (RBC) [Ratio] 13.2 % Normal 11.0-15.0 [facility] Comment on above: Performed By: #### C BC #### [facility] [address] [place] [address] Dr. Zaira Benoit Hematocrit (Bld) [Volume fraction] 46.6 % Normal 42.0-54.0 [facility] Comment on above: Performed By: #### C BC #### [facility] [address] [place] [address] Dr. Zaira Benoit Hemoglobin (Bld) [Mass/Vol] 15.5 g/dL Normal 14.0-18.0 [facility] Comment on above: Performed By: #### C BC #### [facility] [address] [place] [address] Dr. Zaira Benoit IG # 0.02 10e3/ul Normal 0.00-0.03 [facility] Comment on above: Performed By: #### C BC #### [facility] [address] [place] [address] Dr. Zaira Benoit IG % 0.3 % Normal 0.0-0.5 [facility] Comment on above: Performed By: #### C BC #### [facility] [address] [place] [address] Dr. Zaira Benoit LYMPH # 2.6 103/ul Normal 1.2-3.8 [facility] Comment on above: Performed By: #### C BC #### [facility] [address] [place] [address] Dr. Zaira Benoit Lymphocytes/100 WBC (Bld) 36.9 % Normal 20.5-60.0 [facility] Comment on above: Performed By: #### C BC #### [facility] [address] [place] [address] Dr. Zaira Benoit MANUAL DIFF REQ NO Normal [facility] Comment on above: Performed By: #### C BC #### [facility] [address] [place] [address] Dr. Zaira Benoit MCH (RBC) [Entitic mass] 33.2 pg Normal 25.9-34.0 [facility] Comment on above: Performed By: #### C BC #### [facility] [address] [place] [address] Dr. Zaira Benoit MCHC (RBC) [Mass/Vol] 33.3 g/dL Normal 29.9-35.2 [facility] Comment on above: Performed By: #### C BC #### [facility] [address] [place] [address] Dr. Zaira Benoit MCV (RBC) [Entitic vol] 99.8 fL Critically high 80.0-94.0 [facility] Comment on above: Performed By: #### C BC #### [facility] [address] [place] [address] Dr. Zaira Benoit MONO # 0.6 103/ul Normal 0.3-0.8 [facility] Comment on above: Performed By: #### C BC #### [facility] [address] [place] [address] Dr. Zaira Benoit Monocytes/100 WBC (Bld) 9.1 % Normal 1.7-12.0 [facility] Comment on above: Performed By: #### C BC #### [facility] [address] [place] [address] Dr. Zaira Benoit NEUT # 3.6 103/ul Normal 1.4-6.5 [facility] Comment on above: Performed By: #### C BC #### [facility] [address] [place] [address] Dr. Zaira Benoit Neutrophils/100 WBC (Bld) 50.7 % Normal 43.0-75.0 [facility] Comment on above: Performed By: #### C BC #### [facility] [address] [place] [address] Dr. Zaira Benoit Platelet mean volume (Bld) [Entitic vol] 9.3 fL Critically low 9.5-13.5 [facility] Comment on above: Performed By: #### C BC #### [facility] [address] [address] [address] Zaira Benoit PLT 191 103/ul Normal 150-450 [facility] Comment on above: Performed By: #### C BC #### [facility] [address] [place] [address] Dr. Zaira Benoit RBC 4.67 106/ul Critically low 4.70-6.10 [facility] Comment on above: Performed By: #### C BC #### [facility] [address] [place] [address] Dr. Zaira Benoit WBC 7.0 103/ul Normal 4.0-11.0 [facility] Comment on above: Performed By: #### C BC #### [facility] [address] [place] [address] Dr. Zaira Benoit GLYCOHEMOGLOBIN A1Con 2021 ADA RECOMMENDATION SEE BELOW Normal [facility] Comment on above: Result Comment: ADA RECOMMENDED LIMIT 4.0 - 6.0 ADA THERAPEUTIC TARGET < 7.0 ACTION SUGGESTED > 7.0 Performed By: #### A 1C #### [facility] [address] [place] [address] Dr. Zaira Benoit Glucose [Mass/Vol] 151 mg/dL Normal [facility] Comment on above: Performed By: #### A 1C #### [facility] [address] [place] [address] Dr. Zaira Benoit HbA1c (Bld) [Mass fraction] 6.9 % Critically high 4.5-6.2 [facility] Comment on above: Performed By: #### A 1C #### [facility] [address] [place] [address] Dr. Zaira Benoit LIPID PROFILEon 05-12-2022 CHOL-HDL RATIO NORM SEE BELOW Normal [facility] Comment on above: Result Comment: 3.3 - 4.4 LOW RISK 4.4 - 7.1 AVERAGE RISK 7.1 - 11.0 MODERATE RISK >11.0 HIGH RISK Performed By: #### L IPID, URIC, CMP #### [facility] [address] [address] [address] Zaira Benoit Cholesterol [Mass/Vol] 132 mg/dL Normal <=200 [facility] Comment on above: Performed By: #### L IPID, URIC, CMP #### [facility] [address] [address] [address] Zaira Benoit Cholesterol in HDL [Mass/Vol] 53 mg/dL Normal 40-60 [facility] Comment on above: Performed By: #### L IPID, URIC, CMP #### [facility] [address] [place] [address] Dr. Zaira Benoit Cholesterol in LDL [Mass/Vol] 59.6 mg/dL Normal [facility] Comment on above: Performed By: #### L IPID, URIC, CMP #### [facility] [address] [address] [address] Zaira Benoit Cholesterol.total/Ch olesterol in HDL [Mass ratio] 2.5 {ratio} Normal [facility] Comment on above: Performed By: #### L IPID, URIC, CMP #### [facility] [address] [place] [address] Dr. Zaira Benoit HDL NORMAL > or = 60 mg/dl - LO W CARDIOVASCULAR RISK <40 mg/dl - HIGH CARDIOVASCULAR RISK Normal [facility] Comment on above: Performed By: #### L IPID, URIC, CMP #### [facility] [address] [place] [address] Dr. Zaira Benoit LDL CALC NORMAL SEE BELOW Normal [facility] Comment on above: Result Comment: <100 mg/dl OPTIMAL 100 - 129 mg/dl NEAR OR ABOVE OPTIMAL 130 - 159 mg/dl BORDERLINE HIGH 160 - 189 mg/dl HIGH >190 mg/dl VERY HIGH Performed By: #### L IPID, URIC, CMP #### [facility] [address] [address] [address] Zaira Benoit Triglyceride [Mass/Vol] 97 mg/dL Normal <=150 [facility] Comment on above: Performed By: #### L IPID, URIC, CMP #### [facility] [address] [place] [address] Dr. Zaira Benoit VLDL CALC 19.4 mg/dL Normal [facility] Comment on above: Performed By: #### L IPID, URIC, CMP #### [facility] [address] [place] [address] Dr. Zaira Benoit PROF 14(COMP METB)on 022 Albumin [Mass/Vol] 3.9 g/dL Normal 3.4-5.0 [facility] Comment on above: Performed By: #### L IPID, URIC, CMP #### [facility] [address] [place] [address] Dr. Zaira Benoit Albumin/Globulin [Mass ratio] 1.1 {ratio} Normal [facility] Comment on above: Performed By: #### L IPID, URIC, CMP #### [facility] [address] [place] [address] Dr. Zaira Benoit ALP [Catalytic activity/Vol] 92 U/L Normal 46-116 [facility] Comment on above: Performed By: #### L IPID, URIC, CMP #### [facility] [address] [place] [address] Dr. Zaira Benoit ALT [Catalytic activity/Vol] 31 U/L Normal 16-63 [facility] Comment on above: Performed By: #### L IPID, URIC, CMP #### [facility] [address] [place] [address] Dr. Zaira Benoit Anion gap [Moles/Vol] 12.2 mmol/L Normal [facility] Comment on above: Performed By: #### L IPID, URIC, CMP #### [facility] [address] [place] [address] Dr. Zaira Benoit AST [Catalytic activity/Vol] 20 U/L Normal 15-37 [facility] Comment on above: Performed By: #### L IPID, URIC, CMP #### [facility] [address] [place] [address] Dr. Zaira Benoit Bilirubin [Mass/Vol] 0.4 mg/dL Normal 0.2-1.0 [facility] Comment on above: Performed By: #### L IPID, URIC, CMP #### [facility] [address] [place] [address] Dr. Zaira Benoit Calcium [Mass/Vol] 8.8 mg/dL Normal 8.5-10.1 [facility] Comment on above: Performed By: #### L IPID, URIC, CMP #### [facility] [address] [place] [address] Dr. Zaira Benoit Chloride [Moles/Vol] 101 mmol/L Normal 98-107 [facility] Comment on above: Performed By: #### L IPID, URIC, CMP #### [facility] [address] [place] [address] Dr. Zaira Benoit CO2 [Moles/Vol] 29.3 mmol/L Normal 21.0-32.0 [facility] Comment on above: Performed By: #### L IPID, URIC, CMP #### [facility] [address] [place] [address] Dr. Zaira Benoit Creatinine [Mass/Vol] 0.88 mg/dL Normal 0.70-1.30 [facility] Comment on above: Performed By: #### L IPID, URIC, CMP #### [facility] [address] [place] [address] Dr. Zaira Benoit EGFR-AF CYMRO >60 Normal >=60 [facility] Comment on above: Performed By: #### L IPID, URIC, CMP #### [facility] [address] [place] [address] Dr. Zaira Benoit EGFR-NON AF CYMRO >60 Normal >=60 [facility] Comment on above: Performed By: #### L IPID, URIC, CMP #### [facility] [address] [place] [address] Dr. Zaira Benoit Globulin (S) [Mass/Vol] 3.6 g/dL Normal [facility] Comment on above: Performed By: #### L IPID, URIC, CMP #### [facility] [address] [address] [address] Zaira Benoit Glucose [Mass/Vol] 128 mg/dL Critically high 74-106 [facility] Comment on above: Performed By: #### L IPID, URIC, CMP #### [facility] [address] [address] [address] Zaira Benoit Potassium [Moles/Vol] 4.5 mmol/L Normal 3.5-5.1 [facility] Comment on above: Performed By: #### L IPID, URIC, CMP #### [facility] [address] [place] [address] Dr. Zaira Benoit Protein [Mass/Vol] 7.5 g/dL Normal 6.4-8.2 [facility] Comment on above: Performed By: #### L IPID, URIC, CMP #### [facility] [address] [place] [address] Dr. Zaira Benoit Sodium [Moles/Vol] 138 mmol/L Normal 136-145 [facility] Comment on above: Performed By: #### L IPID, URIC, CMP #### [facility] [address] [place] [address] Dr. Zaira Benoit Urea nitrogen [Mass/Vol] 4.0 mg/dL Critically low 7.0-18.0 [facility] Comment on above: Performed By: #### L IPID, URIC, CMP #### [facility] [address] [place] [address] Dr. Zaira Benoit Urea nitrogen/Creatinine [Mass ratio] 4.5 mg/mg Normal [facility] Comment on above: Performed By: #### L IPID, URIC, CMP #### [facility] [address] [place] [address] Dr. Zaira Benoit URIC ACID SERUMon 05-12-2022 Urate [Mass/Vol] 7.5 mg/dL Critically high 3.5-7.2 [facility] Comment on above: Performed By: #### L IPID, URIC, CMP #### [facility] [address] [address] [address] Zaira Benoit No Panel Information [facility] Vital Signs Date Time Vital Sign Value Performing Clinician Facility 01-17-2025 16:04-0400 Body height 175.3 cm Juan Manuel Crow DPM Work Phone: [facility] 01-17-2025 16:04-0400 Body mass index (BMI) [Ratio] 31.31 kg/m2 Juan Manuel Crow DPM Work Phone: [facility] 01-17-2025 16:04-0400 Body weight 96.16 kg Juan Manuel Crow DPM Work Phone: [facility] 01-17-2025 16:04-0400 Respiratory rate 18 /min Juan Manuel Crow DPM Work Phone: [facility] 01-08-2025 15:20-0400 Body height 175.3 cm Dannie Gambino MD Work Phone: [facility] 01-08-2025 15:20-0400 Body mass index (BMI) [Ratio] 31.31 kg/m2 Dannie Gambino MD Work Phone: [facility] 01-08-2025 15:20-0400 Body weight 96.16 kg Dannie Gambino MD Work Phone: [facility] 01-08-2025 15:20-0400 Diastolic blood pressure 76 mm[Hg] Dannie Gambino MD Work Phone: [facility] 01-08-2025 15:20-0400 Systolic blood pressure 124 mm[Hg] Dannie Gambino MD Work Phone: [facility] 10-11-2024 14:24-0500 Body height 175.3 cm Juan Manuel Crow DPM Work Phone: [facility] 10-11-2024 14:24-0500 Body mass index (BMI) [Ratio] 29.53 kg/m2 Juan Manuel Crow DPM Work Phone: [facility] 10-11-2024 14:24-0500 Body weight 90.72 kg Juan Manuel Crow DPM Work Phone: [facility] 10-11-2024 14:24-0500 Respiratory rate 18 /min Juan Manuel Crow DPM Work Phone: [facility] 07-05-2024 13:49-0500 Body height 175.3 cm Juan Manuel Crow DPM Work Phone: [facility] 07-05-2024 13:49-0500 Body mass index (BMI) [Ratio] 29.53 kg/m2 Juan Manuel Crow DPM Work Phone: [facility] 07-05-2024 13:49-0500 Body weight 90.72 kg Juan Manuel Crow DPM Work Phone: [facility] 07-05-2024 13:49-0500 Diastolic blood pressure 79 mm[Hg] Juan Manuel Crow DPM Work Phone: [facility] 07-05-2024 13:49-0500 Heart rate 82 /min Juan Manuel Crow DPM Work Phone: [facility] 07-05-2024 13:49-0500 Systolic blood pressure 131 mm[Hg] Juan Manuel Crow DPM Work Phone: [facility] 10-24-2023 14:53-0500 Body weight 97.52 kg Ale Noriega MD Work Phone: [facility] 10-24-2023 14:53-0500 Diastolic blood pressure 66 mm[Hg] Ale Noriega MD Work Phone: [facility] 10-24-2023 14:53-0500 Heart rate 79 /min Ale Noriega MD Work Phone: [facility] 10-24-2023 14:53-0500 Systolic blood pressure 157 mm[Hg] Ale Noriega MD Work Phone: [facility] 10-15-2022 10:45-0500 Diastolic blood pressure 79 mm[Hg] Jf WALTERS [facility] 10-15-2022 10:45-0500 Heart rate 86 /min Jf WALTERS [facility] 10-15-2022 10:45-0500 Systolic blood pressure 128 mm[Hg] Jf WALTERS [facility] 06-28-2022 13:37-0500 Blood Pressure Location Jf WALTERS [facility] 06-28-2022 13:37-0500 Diastolic blood pressure 89 mm[Hg] Jf WALTERS [facility] 06-28-2022 13:37-0500 Heart rate 74 /min Jf WALTERS [facility] 06-28-2022 13:37-0500 Respiratory rate 16 /min Jf WALTERS [facility] 06-28-2022 13:37-0500 Systolic blood pressure 140 mm[Hg] Jf WALTERS [facility] Encounters Encounter Date Encounter Type Care Provider Facility Start: 01-17-2025 End: 01-17-2025 Patient encounter procedure Juan Manuel Crow DPM Work Phone: [facility] Comment on above: Diabetes mellitus du e to underlying condition with diabetic polyneuropathy, unspecified whether residential insulin use ([facility]) (Primary Dx); Pain due to onychomycosis of toenails of both feet; Venous insufficiency; Capsulitis of metatarsophalangeal (MTP) joint of right foot Start: 01-17-2025 End: 01-17-2025 Bamboo flowsheet Juan Manuel Crow DPM Work Phone: [facility] Start: 01-17-2025 End: 01-17-2025 Bamboo flowsheet Juan Manuel Crow DPM Work Phone: [facility] Start: 01-15-2025 End: 01-15-2025 Postop follow up visit related to original px Dannie Greer MD Work Phone: [facility] Comment on above: Wound of back, unspe cified laterality, initial encounter (Primary Dx) Start: 01-09-2025 End: 01-09-2025 ambulatory Daina Judge Facility:[facility] Start: 01-09-2025 End: 01-09-2025 External Result Encounter Dannie Greer MD Work Phone: [facility] Unsolicited Start: 01-09-2025 End: 01-09-2025 External Result Encounter Dannie Gambino MD Work Phone: [facility] Unsolicited Start: 01-08-2025 End: 01-08-2025 Office outpatient new 30 minutes Dannie Greer MD Work Phone: [facility] Comment on above: Wound of back, unspe cified laterality, initial encounter (Primary Dx); EIC (epidermal inclusion cyst) Start: 01-08-2025 End: 01-08-2025 ambulatory DANNIE GREER V Not Available Start: 12-17-2024 ambulatory AYDEN LLAMAS [facility] Start: 12-11-2024 End: 12-11-2024 Office outpatient visit 15 minutes Ciaran Cain PA Work Phone: [facility] Comment on above: Epidermal inclusion cyst (Primary Dx); Pain Start: 12-11-2024 End: 12-11-2024 ambulatory CIARAN NORTHEIM Not Available Start: 11-30-2024 End: 11-30-2024 Bamboo flowsheet Ciaran Northeim PA Work Phone: [facility] Start: 11-30-2024 End: 11-30-2024 Bamboo flowsheet Ciarankatya Cain PA Work Phone: [facility] Start: 11-30-2024 End: 11-30-2024 ambulatory CIARAN CAIN Not Available Start: 11-30-2024 End: 11-30-2024 Office outpatient visit 15 minutes Ciaran NARANJO Work Phone: [facility] Comment on above: EIC (epidermal inclu scottie cyst) (Primary Dx) Start: 11-02-2024 End: 11-02-2024 ambulatory [facility] Start: 10-11-2024 End: 10-11-2024 ambulatory JUAN MANUEL CROW Not Available Start: 10-11-2024 End: 10-11-2024 Bamboo flowsheet Juan Manuel Crow DPM Work Phone: [facility] Start: 10-11-2024 End: 10-11-2024 Bamboo flowsheet Juan Manuel Crow DPM Work Phone: [facility] Start: 10-11-2024 End: 10-11-2024 Office outpatient visit 15 minutes Juan Manuel Crow DPM Work Phone: [facility] Comment on above: Capsulitis of metata rsophalangeal (MTP) joint of right foot (Primary Dx); Diabetes mellitus due to underlying condition with diabetic polyneuropathy, unspecified whether intermediate frame tender insulin use ([facility]); Pain due to onychomycosis of toenails of [...] Not Available Start: 10-02-2024 End: 10-02-2024 Bamboo melisa Olguin MD Work Phone: [facility] Start: 10-02-2024 End: 10-02-2024 Jose Olguin MD Work Phone: [facility] Start: 09-19-2024 End: 09-19-2024 ambulatory [facility] Start: 07-05-2024 End: 07-05-2024 Bamboo flowsheet Juan Manuel Crow DPM Work Phone: [facility] Start: 07-05-2024 End: 07-05-2024 Bamboo flowsbonita Crow DPM Work Phone: [facility] Start: 07-05-2024 End: 07-05-2024 Office outpatient visit 15 minutes Juan Manuel Crow DPM Work Phone: [facility] Comment on above: Capsulitis of metata rsophalangeal (MTP) joint of right foot (Primary Dx); Diabetes mellitus due to underlying condition with diabetic polyneuropathy, unspecified whether intermediate frame tender insulin use (CMS/HCC); Pain due to onychomycosis [...] Start: 02-09-2024 End: 02-09-2024 ambulatory JUAN MANUELLa CROW Not Available Start: 02-09-2024 End: 02-09-2024 ambulatory HILDA DILCIA [facility] Start: 01-26-2024 End: 01-26-2024 ambulatory KAIA Elana OLGUIN Not Available Start: 12-27-2023 End: 12-27-2023 ambulatory MARQUIS WEAVER Facility:[facility] Start: 12-27-2023 End: 12-27-2023 Patient [...] Start: 12-08-2023 End: 12-08-2023 ambulatory ALE NORIEGA Facility:[facility] Start: 12-08-2023 End: 12-08-2023 Patient encounter procedure Ale Noriega MD Work Phone: Urology Comment on above: Elevated prostate sp ecific antigen (PSA) (Primary Dx); APPOINTMENT CANCELLED Start: 12-08-2023 End: 12-08-2023 Telemedicine consultation with patient Ale Noriega MD Work Phone: [facility] Start: 12-08-2023 Telephone encounter Ale Noriega MD Work Phone: Urology Start: 11-21-2023 End: 11-22-2023 ambulatory Trevor Forte MD Facility: [facility] Start: 11-17-2023 End: 11-17-2023 ambulatory RAUL SUN Facility:[facility] Start: 10-24-2023 End: 10-24-2023 ambulatory RAUL SUN Facility:[facility] Start: 10-24-2023 End: 10-24-2023 Patient encounter procedure Ale Noriega MD Work Phone: Urology Comment on above: Elevated prostate sp ecific antigen (PSA) (Primary Dx); BPH without obstruction/lower urinary tract symptoms Start: 06-27-2023 End: 06-27-2023 ambulatory RAUL SUN Facility:[facility] Start: 06-06-2023 End: 06-06-2023 ambulatory RAUL SUN Facility:[facility] Start: 06-06-2023 End: 06-06-2023 Patient [...] Start: 10-15-2022 End: 10-16-2022 ambulatory Jf WALTERS Facility:[facility] Start: 10-15-2022 End: 10-16-2022 ambulatory Jf WALTERS Facility:[facility] Start: 10-15-2022 End: 10-15-2022 Lab Drop off Jf WALTERS [facility] Start: 10-15-2022 End: 10-15-2022 Patient encounter procedure Jf WALTERS [facility] Start: 07-14-2022 End: 07-14-2022 ambulatory PAPER HANDLER-C Daina Echo Marnie Work Phone: [facility] Work Phone: Start: 07-14-2022 End: 07-14-2022 Patient encounter procedure PAPER HANDLER-C Daina Marnie Work Phone: [facility] [place] Start: 06-28-2022 End: 06-29-2022 ambulatory Jf WALTERS Facility:[facility] Start: 06-28-2022 End: 06-28-2022 Patient encounter procedure Jf WALTERS [facility] Start: 06-16-2022 End: 06-16-2022 Patient encounter procedure [...] Facility: Start: 05-12-2022 End: 05-13-2022 ambulatory DAINA JUDGE Facility: Start: 03-01-2022 End: 03-01-2022 Patient encounter procedure Marquis S Meg OD Work Phone: Ophthalmology Comment on above: [...] Date Procedure Procedure Detail Performing Clinician Start: 01-09-2025 GLUCOSE POCT GLUCOMETERS Dannie Greer MD Work Phone: Start: 12-27-2023 Computerized ophthal marquis imaging retina Marquis Weaver OD Work Phone: Start: 10-26-[address] ZOLTAN WALTERS . Comment on above: Performed By: #### P SAD #### [facility] [address] [place] [address] Dr. Zaira Benoit Start: 06-16-2022 Post-cataract laser surgery Radha Peerz MD Work Phone: Start: 05-12-[address] ZOLTAN WALTERS . Comment on above: Performed By: #### P SASC #### [facility] [address] [place] [address] Dr. Zaira Benoit Start: 02-17-2022 Computerized ophthal [...] DERM [address] [place] [address] [place] [address] Kaia Olguin MD [address] [facility] [address] [place] [address] [facility] Start: 04-22-2025 Influenza vaccination Influenza Vaccine (Season Ended) [facility] Start: 01-29-2025 End: 01-29-2025 Patient encounter procedure 01/29/2025 2:00 PM EDT Office Visit [facility] [address] [place] [address] [address] [place] [phone] Dannie Greer MD [address] [address] [facility] Start: 01-17-2025 End: 01-17-2025 Patient encounter procedure [facility] DAVON NICHOLSON Comment on above: Diabetes mellitus due to underlying cond ition with diabetic polyneuropathy, unspecified whether residential insulin use ([facility]) (Primary Dx); Pain due to onychomycosis of toenails of both feet; Venous insufficiency; Capsulitis of metatarsophalangeal (MTP) joint of right foot Start: 01-15-2025 End: 01-15-2025 Patient encounter procedure 01/15/2025 3:00 PM EDT Office Visit [facility] [address] [facility] [address] [place] [phone] Dannie Greer MD 703 [facility] [address] [place] [address] [facility] Start: 12-28-2024 End: 12-28-2024 Patient encounter procedure 12/28/2024 1:30 PM EDT Office Visit [facility] [address] [place] [address] Marquis Weaver, OD [address] [place] [address] Annual Full Eye Exam with Mac [facility] Ophthalmology Comment on above: Annual Full Eye Exam with Mac OCT Start: 12-26-2024 Glaucoma screening Dilated Retinal Exam [facility] Start: 12-20-2024 End: 12-20-2024 Patient encounter procedure 12/20/2024 2:10 PM EDT Procedure Visit [facility] [address] [facility] [address] [place] [address] Juan Manuel Crow, DPM [address] [address] [facility] Start: 12-11-2024 End: 12-11-2025 Bacteria identification, aerobic Bacteria identification, aerobic Microbiology Routine Epidermal inclusion cyst Expected: 12/11/2024 (Approximate), Expires: 12/11/2025 [facility] Work Phone: Comment on above: Expected: 12/11/2024 (Approximate), Expi res: 12/11/2025 Start: 2024 RSV Vaccine (1 - 1-dose 75+ series) RSV Vaccine (1 - 1-dose 75+ series) [facility] Start: 10-11-2024 End: 10-11-2024 Patient encounter procedure 10/11/2024 1:50 PM EST Procedure Visit [facility] [address] [facility] [address] [place] [id number] Juan Manuel Crow, DPM [address] [address] [facility] Start: 10-02-2024 End: 10-02-2024 Patient encounter procedure 10/02/2024 2:45 PM EST Office Visit [facility] [address] [place] [address] [place] [phone] Kaia Olguin MD [address] [place] [address] [place] [address] Arrived [facility] Comment on above: Arrived Start: 09-13-2024 End: 09-13-2024 Patient encounter procedure 09/13/2024 2:20 PM EST Procedure Visit [facility] [address] [place] [address] [place] [phone] Juan Manuel Crow DPM [address] [facility] [place] [address] [place] [address] [facility] Start: 09-06-2024 End: 09-06-2024 Patient encounter procedure 09/06/2024 1:35 PM EST Office Visit [facility] [address] [place] [address] [place] [address] Kaia Olguin MD [address] [place] [address] [place] [address] [facility] Start: 06-27-2024 Glaucoma screening Dilated Retinal Exam [facility] Start: 06-06-2024 Hepatitis C antibody, confirmatory test Dilated Retinal Exam [facility] Start: 05-31-2024 End: 06-30-2025 MR Prostate WO and W contrast IV MRI PROSTATE WO/W IVCON Radiology Routine Encounter for observation for other suspected diseases and conditions ruled out Expected: 05/31/2024 (Approximate), Expires: 06/30/2025 [facility] Work Phone: Comment on above: Expected: 05/31/2024 (Approximate), Expi res: 06/30/2025 Start: 05-31-2024 End: 06-30-2025 MR Unspecified body region 3D post processing MRI 3D POST PROCESSING Radiology Routine Elevated prostate specific antigen (PSA) Prostate cancer (HCC) Expected: 05/31/2024 (Approximate), Expires: 06/30/2025 [facility] Comment on above: Expected: 05/31/2024 (Approximate), Expi res: 06/30/2025 Start: 05-31-2024 End: 08-30-2024 Prostate Specific Ag Free [Mass/volume] in Serum or Plasma PROSTATE SPECIFIC ANTIGEN, FREE Lab Routine Elevated prostate specific antigen (PSA) Prostate cancer (HCC) Encounter for observation for other suspected diseases and conditions ruled out Expected: 05/31/2024 (Approximate), Expires: 08/30/2024 [facility] Comment on above: Expected: 05/31/2024 (Approximate), Expi res: 08/30/2024 Start: 04-22-2024 Covid-19 Vaccine ( season) Covid-19 Vaccine () [facility] Start: 04-22-2024 Influenza vaccination [facility] Start: 12-27-2023 End: 12-27-2023 Patient encounter procedure 12/27/2023 1:00 PM EDT Office Visit [facility] [address] [place] [address] LoudensMarquis rodriguez S, OD [address] [place] [address] RTC 6 months Dilate and oct [facility] Comment on above: RTC 6 months Dilate and oct [facility] Start: 11-24-2023 End: 02-23-2024 Prostate specific Ag [Mass/volume] in Serum or Plasma PSA/PROSTSPECAG DIAG Lab Routine Elevated prostate specific antigen (PSA) BPH without obstruction/lower urinary tract symptoms Expected: 11/24/2023 (Approximate), Expires: 02/23/2024 [facility] Work Phone: Comment on above: Expected: 11/24/2023 (Approximate), Expi res: 02/23/2024 Start: 08-22-2023 Advance Directive Discussion Advance Directive Discussion [facility] Start: 08-22-2023 Behavioral Health Screening Behavioral Health Screening [facility] Start: 08-22-2023 Depression Assessment Depression Assessment [facility] Start: 06-16-2023 Hepatitis C antibody, confirmatory test DILATED RETINAL EXAM [facility] Start: 04-22-2023 Covid-19 Vaccine ( season) Covid-19 Vaccine ( season) [facility] Start: 04-22-2023 Influenza vaccination [facility] Start: 03-01-2023 Hepatitis C antibody, confirmatory test DILATED RETINAL EXAM [facility] Start: 02-17-2023 Hepatitis C antibody, confirmatory test DILATED RETINAL EXAM [facility] Start: 12-11-2022 COVID-19 VACCINE (5 - Pfizer series) COVID-19 VACCINE (5 - Pfizer series) [facility] Start: 08-22-2022 ADVANCE DIRECTIVE DISCUSSION ADVANCE DIRECTIVE DISCUSSION [facility] Start: 08-22-2022 DEPRESSION ASSESSMENT DEPRESSION ASSESSMENT [facility] Start: 05-07-2022 COVID-19 VACCINE (4 - Booster for Pfizer series) COVID-19 VACCINE (4 - Booster for Pfizer series) [facility] Start: 04-22-2022 Influenza vaccination [facility] Start: 08-22-2021 ADVANCE DIRECTIVE DISCUSSION ADVANCE DIRECTIVE DISCUSSION [facility] Start: 08-22-2021 DEPRESSION ASSESSMENT DEPRESSION ASSESSMENT [facility] Start: 04-16-2021 COVID-19 VACCINE (3 - Booster for Pfizer series) COVID-19 VACCINE (3 - Booster for Pfizer series) [facility] Start: 07-25-2020 COLORECTAL CANCER SCREENING COLORECTAL CANCER SCREENING [facility] Start: 07-25-2020 FECAL OCCULT BLOOD FECAL OCCULT BLOOD [facility] Start: 07-25-2020 Hepatitis B screening URINE ALBUMIN:CREATININE RATIO [facility] Start: 07-25-2020 Hepatitis B surface antibody level LDL CHOLESTEROL [facility] Start: 07-25-2020 Screening for malignant neoplasm of colon [facility] Start: 01-24-2020 Hemoglobin A1c measurement HbA1C [facility] Start: 01-24-2020 Hemoglobin A1c/Hemoglobin.total in Blood HBA1C [facility] Start: 2014 Pneumococcal Vaccine: 65+ Years (1 of 1 - PCV) Pneumococcal Vaccine: 65+ Years (1 of 1 - PCV) [facility] Start: 2009 Hepatitis B Vaccine (1 of 3 - Risk 3-dose series) Hepatitis B Vaccine (1 of 3 - Risk 3-dose series) [facility] Start: 2009 RSV Vaccine (1 - 1-dose 60+ series) RSV Vaccine (1 - 1-dose 60+ series) [facility] Start: 11-27-1999 Pneumococcal Vaccine: 65+ Years (1 of 1 - PCV) Pneumococcal Vaccine: 65+ Years (1 of 1 - PCV) [facility] Start: 11-27-1999 SHINGRIX VACCINE (1 of 2) SHINGRIX VACCINE (1 of 2) [facility] Start: 1994 COLOGUARD (FIT-DNA) COLOGUARD (FIT-DNA) [facility] Start: 1994 Colonoscopy COLONOSCOPY [facility] Start: [address] COLONOGRAPHY [facility] Start: 1994 Screening for malignant neoplasm of colon [facility] Start: 1994 SIGMOIDOSCOPY SIGMOIDOSCOPY [facility] Start: 1968 Urine microalbumin profile [facility] Start: 11-27-1967 ANNUAL PCP TEAM CHRONIC DISEASE VISIT ANNUAL PCP TEAM CHRONIC DISEASE VISIT [facility] Start: 11-27-1967 Anxiety Screening Anxiety Screening [facility] Start: 11-27-1967 Depression Screening Depression Screening [facility] Start: 11-27-1967 HEPATITIS C SCREENING HEPATITIS C SCREENING [facility] Start: 11-27-1967 Hepatitis C screening Hepatitis C Screening [facility] Start: 1961 Adult depression screening assessment DEPRESSION SCREENING [facility] Start: 11-27-1959 3 comp foot exam completed DIABETIC FOOT EXAM [facility] Start: 11-27-1959 Diabetic foot examination Diabetic Foot Exam [facility] Start: 11-27-1955 Pneumococcal Vaccine: 65+ (1 - PCV) Pneumococcal Vaccine: 65+ (1 - PCV) [facility] Start: 11-27-1955 Pneumococcal Vaccine: 65+ (1 of 2 - PCV) Pneumococcal Vaccine: 65+ (1 of 2 - PCV) [facility] Start: 11-27-1955 PNEUMOCOCCAL: 65+ (1 - PCV) PNEUMOCOCCAL: 65+ (1 - PCV) [facility] Start: 1949 ABDOMINAL AORTIC ANEURYSM SCREENING ABDOMINAL AORTIC ANEURYSM SCREENING [facility] Start: 1949 Abdominal aortic aneurysm screening Abdominal Aortic Aneurysm Screening [facility] Start: 1949 Screening for malignant neoplasm of colon [facility] Aerobic culture Aerobic culture Microbiology Timed Epidermal inclusion cyst Release Upon Ordering for 1 Occurrences starting 12/11/2024 [facility] Comment on above: Release Upon Ordering for 1 Occurrences starting 12/11/2024 [facility] Immunizations Immunization Date Immunization Notes Care Provider Rosalind alvares 03-12-2022 SARS-CoV-2 mRNA (vuvkgxxaali-mlde-tbkna se) vaccine Jf WALTERS [facility] Comment on above: Result Comment: 2021: [id number] 11-14-2020 COVID-19 vaccine, ag e 12+ yr (PFIZER-BIONTECH - PURPLE TOP) Radha Perez MD Work Phone: [facility] Comment on above: Result Comment: 2021: TPV70 10-24-2020 COVID-19 vaccine, ag e 12+ yr (PFIZER-BIONTECH - PURPLE TOP) Radha Perez MD Work Phone: [facility] Comment on above: Result Comment: 2021: [id number] Payers Date Payer Category Payer Self-pay 2024 Medicare [id number] 2021 Medicare (Managed Care) [id number]. [id number] 2017 Unknown ANTHEM BLUE CROS S AND BLUE SHIELD ANTHEM MEDIBLUE O [id number] 2017-Present [phone] [address] [place] [address] O [id number] 2017 Unknown [id number] 1959 Medicare [id number] 1949 Unknown [id number] [id number] .593 1949 Unknown [id number] [id number] .593 1949 Unknown [id number] 2.16.840.1.586199.3.579.2 .593 1949 Unknown [id number] 2.16.840.1.229917.3.579.2 .727 1949 Unknown [id number] 2.16.840.1.081754.3.579.2 .727 1949 Unknown [id number] 2.16.840.1.070130.3.579.2 .727 1949 Unknown [id number] 2.16.840.1.653863.3.579.2 .196 1949 Unknown [id number] 2.16.840.1.620092.3.579.2 .196 1949 Unknown [id number] 2.16.840.1.144865.3.579.2 .1259 1949 Unknown [id number] 2.16.840.1.698348.3.579.2 .1259 1949 Unknown [id number] 2.16.840.1.489121.3.579.2 .1259 1949 Unknown [id number] 2.16.840.1.195796.3.579.2 .1259 1949 Unknown [id number] 2.16.840.1.031229.3.579.2 .1259 1949 Unknown [id number] 2.16.840.1.998212.3.579.2 .1259 1949 Unknown [id number] 2.16.840.1.375502.3.579.2 .1259 1949 Unknown [id number] 2.16.840.1.260322.3.579.2 .1259 1949 Unknown [id number] 2.16.840.1.021486.3.579.2 .1259 Medicare Medicare [id number] Unknown [id number] .531 Social History Date Type Detail Facility Start: 08-22-1972 End: 01-08-2025 Tobacco smoking status ILIS Smokes tobacco daily [facility] Start: 08-22-1972 History of tobacco use Cigarette Smo ker [facility] Start: 11-03-2016 End: 01-08-2025 Cigarettes smoked current (pack per day) - Reported 1 [facility] Start: 11-03-2016 End: 01-08-2025 Tobacco use and exposure Smokeless tobacco non-user [facility] Start: 02-17-2022 End: 12-11-2024 Alcohol intake Current drinker of alcohol (finding) [facility] Start: 11-20-2018 History SDOH Alcohol Comment per day [facility] Start: 1950 Sex Assigned At Not on file C [facility] Start: 06-28-2022 End: 10-15-2022 Tobacco smoking status Heavy tobacco smoker (finding) [facility] Start: 06-16-2022 End: 01-08-2025 Sex Assigned At Male [facility] Start: 1950 Sex Assigned At Male F [facility] National Score (1-10 0), lower number is lower risk 87 [facility] Start: 01-08-2025 End: 01-17-2025 Alcoholic beverage intake Ex-drinker (finding) [facility] Medical Equipment Procedure Code Equipment Code Equipment Origin al Text Equipment Identifier Dates Lens Acrysof Iq +19.5 Diopter Natural Stableforce 0 D Biconvex 118.7 - [id number] Start: 02-07-2017 Functional Status Date Assessment Result Facility 10-15-2022 Functional Status N/A [facility] 06-28-2022 Functional Status N/A [facility] Clinical Notes 02-17-2022 to 01-17-2025 Juan Manuel Crow DPM - 01/17/2025 3:50 PM Johnathon Gambino MD - 01/15/2025 3:15 PM Johnathon Gambino MD - 01/08/2025 3:00 PM MARCELLA Nagy - 12/11/2024 2:50 PM EDTPatient Instructions Note Date & Type Note Facility 01-17-2025 History of Present illness Narrative Patient: Gianfranco Leblanc : 1950 PCP: Reuben Judge MD SUBJECTIVE This is a 74 y.o. male that presents today with a [...] taking anti-inflammatories periodically. Patient rates pain a 08/31. Pt was toe get OTC gel inserts. Allergies: Allergies Allergen Reactions Amlodipine Swelling Cannot tolerate 10mg due to edema Penicillin G Unknown Penicillins Other, Rash and Unknown Other Reaction(s): Unknown skin reaction Past Medical History: Past Medical History: Diagnosis Date COPD (chronic obstructive pulmonary disease) (CMS/HCC) Depression (CMS/HCC) DM (diabetes mellitus) (CMS/HCC) HLD (hyperlipidemia) (CMS/HCC) HTN (hypertension) (CMS/HCC) Squamous cell skin cancer Medications: Current Outpatient Medications: atorvastatin (Lipitor) 10 MG tablet, 1 (one) time each day at the same time, Disp: , Rfl: busPIRone (Buspar) 10 MG tablet, Take 10 mg by mouth in the morning and 10 mg before bedtime., Disp: , Rfl: carvedilol (Coreg) 12.5 MG tablet, TAKE 1 TABLET BY MOUTH WITH BREAKFAST AND EVENING MEAL, Disp: , Rfl: cholecalciferol (Vitamin D-3) 50 MCG (1999 UT) capsule, Take by mouth, Disp: , Rfl: clobetasol (Temovate) 0.05 % cream, , Disp: , Rfl: diclofenac (Voltaren) 75 MG EC tablet, Take 75 mg by mouth 2 (two) times a day as needed, Disp: , Rfl: doxycycline (Monodox) 50 MG capsule, Take 1 capsule, by mouth, once daily, 30 days, Disp: 30 capsule, Rfl: 11 FLUoxetine (PROzac) 40 MG capsule, Take 40 mg by mouth in the morning., Disp: , Rfl: Lasix 20 MG tablet, 1 (one) time each day at the same time, Disp: , Rfl: loratadine (Claritin) 10 MG tablet, 1 (one) time each day at the same time, Disp: , Rfl: losartan (Cozaar) 50 MG tablet, Take 50 mg by mouth in the morning and 50 mg before bedtime., Disp: , Rfl: losartan-hydroCHLOROthiazide (Hyzaar) 50-12.5 MG tablet, Take 1 tablet by mouth in the morning and 1 tablet before bedtime., Disp: , Rfl: metFORMIN (Glucophage) 500 MG tablet, 1 (one) time each day at the same time, Disp: , Rfl: naltrexone (Depade) 50 MG tablet, 1 (one) time each day at the same time, Disp: , Rfl: Norvasc 5 MG tablet, 1 (one) time each day at the same time, Disp: , Rfl: spironolactone (Aldactone) 25 MG tablet, Take 25 mg by mouth in the morning., Disp: , Rfl: traZODone (Desyrel) 150 MG tablet, 1 (one) time each day at the same time, Disp: , Rfl: Ventolin HFA 108 (90 Base) MCG/ACT inhaler, every 4 (four) hours, Disp: , Rfl: Social History: Social History Socioeconomic History Marital status: Spouse name: Not on file Number of children: Not on file Years of education: Not on file Highest education level: Not on file Occupational History Not on file Tobacco Use Smoking status: Every Day Current packs/day: 1.50 Average packs/day: 1.5 packs/day for 52.4 years (78.6 ttl pk-yrs) Types: Cigarettes Start date: 1972 Smokeless tobacco: Never Vaping Use Vaping status: Never Used Substance and Sexual Activity Alcohol use: Not Currently Alcohol/week: 21.0 standard drinks of alcohol Types: 21 Standard drinks or equivalent per week Drug use: Not on file Sexual activity: Never Other Topics Concern Not on file Social History Narrative Not on file Social Drivers of Health Financial Resource Strain: Not on file Food Insecurity: Not on file Transportation Needs: Not on file Physical Activity: Not on file Stress: Not on file Social Connections: Not on file Intimate Partner Violence: Unknown (10/13/2023) Received from [facility] [place] [employer] Fear of [...] and negative PT pedal pulses NEURO: 5.07 [place] Sally monofilament test diminished to digits and forefoot bilaterally 125Hz tuning fork diminished to 1st MPJ bilaterally ORTHO: Positive pain on palpation to toenails of the left 1,2,3,4,5 toes and right 1,2,3,4,5 toes minimal pain on palpation to right 4th MPJ plantar capsule with negative Jeremy test ASSESSMENT 1. Diabetes mellitus due to underlying condition with diabetic polyneuropathy, unspecified whether residential insulin use ([facility]) 2. Pain due to onychomycosis of toenails [...] tylenol or Ibuprofen Advised patient to use abzt-grx-cywpbsu gel inserts at this time to offload the sub 4th metatarsal region of the left foot that is painful Juan Manuel Crow DPM documented in this encounter [facility] 01-15-2025 History of Present illness Narrative Images from the original note were not included. Patient is status post debridement of his upper back wound. Pathology revealed necrotic inflammation. No mention of any malignancy. Patient has home health for dressing changes. On examination, he is awake alert and in no acute distress. The back wound is clean with pink granulation tissue. Depth is about 0.5 cm. There is no surrounding erythema or induration. There is moderate amount of serous drainage. 1. Wound of back, unspecified laterality, initial encounter Patient will continue with the dressing changes with home health. He will follow up in about 10 days. Next appointment: 01/29/2025 documented in this encounter [facility] 01-08-2025 History of Present illness Narrative Images from the original note were not included. Gianfranco Leblanc 1950 Gianfranco Leblanc is a 74 y.o. male presents with chief complaint of Consult (Cyst on back -upper right side- [facility] only ) HPI: Mr. Gianfranco Leblanc is a 74 year male presenting for right upper back cyst. He states this cyst first formed about 2-3 months ago and he was originally treated with antibiotics. Approximately 3 weeks ago, the noticed draining from the cyst that continued for about 2 weeks. He denies pain around the lesion with minor tenderness on palpation. He denies any new of fevers, nausea, vomiting, shortness of breath, or chest pain. He does have a past medical history of COPD, DM, HLD, HTN, and squamous cell skin cancer (most recent lesion removed approximately 1 year ago). He is an everyday smoker. SUBJECTIVE: MEDICATIONS: ALLERGIES Current Outpatient Medications Medication Instructions atorvastatin (Lipitor) 10 MG tablet Every 24 hours busPIRone (BUSPAR) 10 mg, 2 times daily carvedilol (Coreg) 12.5 MG tablet TAKE 1 TABLET BY MOUTH WITH BREAKFAST AND EVENING MEAL cholecalciferol (Vitamin D-3) 50 MCG (1999) capsule Take by mouth clobetasol (Temovate) 0.05 % cream diclofenac (VOLTAREN) 75 mg, 2 times daily PRN doxycycline (Monodox) 50 MG capsule Take 1 capsule, by mouth, once daily, 30 days FLUoxetine (PROZAC) 40 mg, Daily RT Lasix 20 MG tablet Every 24 hours loratadine (Claritin) 10 MG tablet Every 24 hours losartan (COZAAR) 50 mg, 2 times daily losartan-hydroCHLOROthiazide (Hyzaar) 50-12.5 MG tablet 1 tablet, 2 times daily metFORMIN (Glucophage) 500 MG tablet Every 24 hours naltrexone (Depade) 50 MG tablet Every 24 hours Norvasc 5 MG tablet Every 24 hours spironolactone (ALDACTONE) 25 mg, Every morning traZODone (Desyrel) 150 MG tablet Every 24 hours Ventolin HFA 108 (90 Base) MCG/ACT inhaler Every 4 hours Allergies Allergen Reactions Amlodipine Swelling Cannot tolerate 10mg due to edema Penicillin G Unknown Penicillins Other, Rash and Unknown Other Reaction(s): Unknown skin reaction PAST MEDICAL HISTORY: SOCIAL HISTORY SURGICAL HISTORY: Past Medical History: Diagnosis Date COPD (chronic obstructive pulmonary disease) ([facility]) Depression ([facility]) DM (diabetes mellitus) ([facility] HLD (hyperlipidemia) ([facility]) HTN (hypertension) ([facility]) Squamous cell skin cancer Social History Tobacco Use Smoking status: Every Day Current packs/day: 1.50 Average packs/day: 1.5 packs/day for 52.4 years (78.6 ttl pk-yrs) Types: Cigarettes Start date: 1972 Smokeless tobacco: Never Vaping Use Vaping status: Never Used Substance Use Topics Alcohol use: Not Currently Alcohol/week: 21.0 standard drinks of alcohol Types: 21 Standard drinks or equivalent per week Past Surgical History: Procedure Laterality Date CATARACT EXTRACTION HERNIA REPAIR Bilateral Bilateral Inguinal hernia repair -2 yhrs ago SKIN CANCER EXCISION 3 Spots removed UMBILICAL HERNIA REPAIR 20 yrs ago REVIEW OF SYMPTOMS: Review of Systems Constitutional: Negative for chills, fatigue and fever. HENT: Negative for hearing loss and trouble swallowing. Eyes: Negative for visual disturbance. Respiratory: Negative for cough, shortness of breath and wheezing. Cardiovascular: Negative for chest pain, palpitations and leg swelling. Gastrointestinal: Negative for abdominal pain, constipation, diarrhea, nausea and vomiting. Genitourinary: Negative for difficulty urinating and hematuria. Skin: Positive for wound. Neurological: Negative for dizziness, tremors and numbness. OBJECTIVE: Visit Vitals BP 124/76 Ht 5' 9 Wt 212 lb BMI 31.31 kg/m Smoking Status Every Day BSA 2.16 m Physical Exam Constitutional: Appearance: Normal appearance. HENT: Head: Normocephalic and atraumatic. Eyes: Conjunctiva/sclera: Conjunctivae normal. Cardiovascular: Rate and Rhythm: Normal rate and regular rhythm. Pulmonary: Effort: Pulmonary effort is normal. Breath sounds: Normal breath sounds. Abdominal: General: There is distension. Tenderness: There is no abdominal tenderness. Skin: General: Skin is warm and dry. Findings: Lesion present. Comments: Right upper back approximately 1x1 inch lesion with dark green/black necrotic tissue Neurological: General: No focal deficit present. Mental Status: He is alert and oriented to person, place, and time. Psychiatric: Mood and Affect: Mood normal. Behavior: Behavior normal. ASSESSMENT AND PLAN: Assessment/Plan Diagnoses and all orders for this visit: Wound of back, unspecified laterality, initial encounter EIC (epidermal inclusion cyst) - Ambulatory referral to General Surgery The plan will be to excise the necrotic mass under local anesthesia. The procedure, benefits, risks including risks of bleeding, infection discussed. Patient will require dressing changes postoperatively. documented in this encounter [facility] 12-17-2024 Note [facility] Subjective Gianfranco Leblanc is a 74 y.o. year old male patient being seen for follow up Per Brandon Brumfield ECHO done 12/13/2024. Patient denies chest pain, dizziness, palpitations, heart racing or bleeding/bruising/discolorations. Patient complains of WILLAMS, leg swelling, fatigue Patient states he fell and broke a rib on his left side. Patient Active Problem List Diagnosis Anxiety disorder [...] both lower extremities Retinal hemorrhage, left eye Family History Problem Relation Name Age of Onset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 exam/cataract evaluation 4. History of retinal detachment - left eye - ICD9: V12.49, ICD10: Z86.69 history of retinal detachment repair OS 2007 in [place]. Stable. Call/come in for evaluation immediately if [...] Radha Perez MD documented in this encounter [facility] 03-01-2022 History of Present illness [...] 2022 4:08 PM documented in this encounter [facility] 02-26-2022 Miscellaneous Notes Called to let patient know we were able to get him an appointment in [place] at 4pm, left message. SENTHIL Ballesteros February 26, 2022 3:[address] Perez and she recommends that he be seen today. Please reach out to Patient to see if we can get appointment. SENTHIL Ballesteros February 26, 2022 2:57 PM documented in this encounter [facility] 02-17-2022 History of Present illness [...] h/o retinal detachment repair OS 2007 in [place]. Stable. Call/come in for evaluation immediately if [...] eye -S/P PCIOL Left eye (02/07/17) Aim: [place] by Dr. Perez Signs and symptoms of posterior capsular opacification were reviewed. Discussed possible eventual need for Yag laser posterior capsulotomy. Patient is still happy enough with vision, so declines Yag procedure for now. stable; he remains happy with his vision OS and with OTC readers If he wishes to get new glasses, previously offered an undilated refraction with our optometrists in [place]; he was told that vision with new glasses would not be perfect due to cataract OD; he also has mild PCO OS and Epiretinal membrane OS. He sees a nurse practitioner in [place] Offered for him to establish with a F contact center rep in [place] Return to clinic in 12 months for [...] Perez MD 02/17/22 documented in this encounter [facility] Evaluation + Plan note No data available for this section [facility] Evaluation note Diagnosis Nuclear senile cataract of [...] by other means [facility] Diagnosis 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, [...] both upper eyelids [facility] Diagnosis 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, [...] stated as uncontrolled [facility] noteNo assessment information available[facility] Work Phone: Evaluation note* Diagnosis OPENED IN ERROR- Primary To allow closing an encounter opened in error (used in SmartSet) [facility] Diagnosis Type 2 diabetes mellitus without [...] and sense organs [facility] Diagnosis Elevated prostate specific antigen (PSA)- Primary BPH without obstruction/lower urinary tract symptoms Hypertrophy of prostate without urinary obstruction and other lower urinary tract symptoms (LUTS) [facility]* Diagnosis Elevated prostate specific antigen (PSA)- Primary APPOINTMENT CANCELLED Retinal hemorrhage, left eye- Primary Retinal hemorrhage History of retinal detachment Personal history of other disorders of nervous system and sense organs Epiretinal membrane (ERM) of left eye [facility] Diagnosis Retinal hemorrhage, left eye- Primary Retinal hemorrhage History of retinal detachment Personal history of other disorders of nervous system and sense organs Epiretinal membrane (ERM) of left eye Nuclear senile cataract of right eye Pseudophakia, left eye Lens replaced by other means History of YAG laser capsulotomy of lens, left [facility] Diagnosis Elevated prostate specific antigen (PSA)- Primary Prostate cancer (HCC) Malignant neoplasm of prostate Encounter for observation for other suspected diseases and conditions ruled out [facility] Diagnosis Capsulitis of metatarsophalangeal (MTP) joint of right foot- Primary Diabetes mellitus due to underlying condition with diabetic polyneuropathy, unspecified whether residential insulin use (CMS/HCC) Pain due to onychomycosis of toenails of both feet Venous insufficiency Unspecified venous (peripheral) insufficiency documented in this encounter [facility]* Diagnosis Seborrheic keratosis- Primary Lentigines Other rosacea History of SCC (squamous cell carcinoma) of skin Personal history of other malignant neoplasm of skin Capillary angioma Nevus, non-neoplastic Epidermal inclusion cyst Sebaceous cyst documented [facility]* Diagnosis Capsulitis of metatarsophalangeal (MTP) joint of right foot- Primary Diabetes mellitus due to underlying condition with diabetic polyneuropathy, unspecified whether intermediate frame tender insulin use (CMS/HCC) Pain due to onychomycosis of toenails of both feet Venous insufficiency Unspecified venous (peripheral) insufficiency documented in this encounter [facility]* Diagnosis EIC (epidermal inclusion cyst)- Primary Sebaceous cyst documented in this encounter [facility]* Diagnosis Epidermal inclusion cyst- Primary Sebaceous cyst Pain Generalized pain documented [facility]* Diagnosis Wound of back, unspecified laterality, initial encounter- Primary EIC (epidermal inclusion cyst) Sebaceous cyst documented in this encounter [facility]* Diagnosis Wound of back, unspecified laterality, initial encounter- Primary Diabetes mellitus due to underlying condition with diabetic polyneuropathy, unspecified whether intermediate frame tender insulin use (CMS/HCC)- Primary Pain due to onychomycosis of toenails of both feet Venous insufficiency Unspecified venous (peripheral) insufficiency Capsulitis of metatarsophalangeal (MTP) joint of right foot documented in this encounter [facility]* Diagnosis Diabetes mellitus due to underlying condition with diabetic polyneuropathy, unspecified whether intermediate frame tender insulin use (CMS/HCC)- Primary Pain due to onychomycosis of toenails of both feet Venous insufficiency Unspecified venous (peripheral) insufficiency Capsulitis of metatarsophalangeal (MTP) joint of right foot documented in this encounter [facility] Discharge instructions No data available for this section [facility] No data available for this section [facility] [place] Medications Administered Section Active Administered Medications - up to 3 most recent administrations Medication Order MAR Action Action Date Dose Rate Site fluorescein-benoxinate 0.25-0.4 % 1 Drop (FLURESS) 1 Drop, BOTH EYES, DIRECTED, Starting on Tue02/17/22 at 1330, Until Tue02/18/22 at 0129, Administer for applanation tonometry. In the event of a Fluress shortage, administer 1 drop of [place]-Fluor into both eyes as directed for applanation [...] on Tue06/06/23 at 1400, Until Tue06/07/23 at 015, Administer for dilation, OPHT CLINIC MED ORDERS Given 06/06/2023 2:00 PM EDT 1 Drop Advance Directives Documents on File Type Date Recorded Patient Reed Maker Expl anation Advance Directive(s) 02/07/2017 9:56 AM [...] W/INTERP&POSTPROC DIFF WORK STATION Ale Noriega MD [address] [place] [address] [place] [id number] Referral ID Status Reason Start Date Expiration Date Visits Requested Visits Authorized [id number] New Request Auto-Generat ed Referral 4 06/30/2025 1 1 Specialty Diagnoses / Procedures Referred By Ever kaiser Referred To Contact MR IMAGING Diagnoses Encounter for observation for other suspected diseases and conditions ruled out Procedures MRI PROSTATE WO/W IVCON MRI PELVIS W/O & W/CONTRAST MATERIAL Ale Noriega MD [address] [place] [address] [place] [id number] Referral ID Status Reason Start Date Expiration Date Visits Requested Visits Authorized [id number] New Request Auto-Generat ed Referral 4 06/30/2025 1 1 Additional Source Comments Source Comments (unrecognize d section and content) In the event this informatio n is protected by the Federal Confidentiality of Alcohol and Drug Abuse Patient Records regulations: The Federal rules restrict any use of the information to criminally investigate or prosecute any alcohol or drug abuse patient.[facility] the event this information is protected by the Federal Confidentiality of Alcohol and Drug Abuse Patient Records regulations: The Federal rules restrict any use of the information to criminally investigate or prosecute any alcohol or drug abuse patient.[facility] the event this information is protected by the Federal Confidentiality of Alcohol and Drug Abuse Patient Records regulations: The Federal rules restrict any use of the information to criminally investigate or prosecute any alcohol or drug abuse patient.[facility] Hospital[facility] the event this information is protected by the Federal Confidentiality of Alcohol and Drug Abuse Patient Records regulations: The Federal rules restrict any use of the information to criminally investigate or prosecute any alcohol or drug abuse patient.[facility] HospitalIn the event this information is protected by the Federal Confidentiality of Alcohol and Drug Abuse Patient Records regulations: The Federal rules restrict any use of the information to criminally investigate or prosecute any alcohol or drug abuse patient.[facility] Hospital[facility] the event this information is protected by the Federal Confidentiality of Alcohol and Drug Abuse Patient Records regulations: The Federal rules restrict any use of the information to criminally investigate or prosecute any alcohol or drug abuse patient.[facility] HospitalIn the event this information is protected by the Federal Confidentiality of Alcohol and Drug Abuse Patient Records regulations: The Federal rules restrict any use of the information to criminally investigate or prosecute any alcohol or drug abuse patient.[facility] HospitalIn the event this information is protected by the Federal Confidentiality of Alcohol and Drug Abuse Patient Records regulations: The Federal rules restrict any use of the information to criminally investigate or prosecute any alcohol or drug abuse patient.[facility] Hospital[facility] the event this information is protected by the Federal Confidentiality of Alcohol and Drug Abuse Patient Records regulations: The Federal rules restrict any use of the information to criminally investigate or prosecute any alcohol or drug abuse patient.[facility] Hospital[facility] the event this information is protected by the Federal Confidentiality of Alcohol and Drug Abuse Patient Records regulations: The Federal rules restrict any use of the information to criminally investigate or prosecute any alcohol or drug abuse patient.[facility] Hospital[facility] the event this information is protected by the Federal Confidentiality of Alcohol and Drug Abuse Patient Records regulations: The Federal rules restrict any use of the information to criminally investigate or prosecute any alcohol or drug abuse patient.[facility] HospitalIn the event this information is protected by the Federal Confidentiality of Alcohol and Drug Abuse Patient Records regulations: The Federal rules restrict any use of the information to criminally investigate or prosecute any alcohol or drug abuse patient.[facility] HospitalIn the event this information is protected by the Federal Confidentiality of Alcohol and Drug Abuse Patient Records regulations: The Federal rules restrict any use of the information to criminally investigate or prosecute any alcohol or drug abuse patient.[facility] HospitalIn the event this information is protected by the Federal Confidentiality of Alcohol and Drug Abuse Patient Records regulations: The Federal rules restrict any use of the information to criminally investigate or prosecute any alcohol or drug abuse patient.[facility] HospitalIn the event this information is protected by the Federal Confidentiality of Alcohol and Drug Abuse Patient Records regulations: The Federal rules restrict any use of the information to criminally investigate or prosecute any alcohol or drug abuse patient.[facility] Reason for Visit (unrecogniz ed [...] Comments DM Foot Care Dm nail care Reason Comments Consult Cyst on back -upper right side- [facility] only Specialty Diagnoses / Procedures Referred By Contac t Referred To Contact General Surgery Diagnoses EIC (epidermal inclusion cyst) Pain Procedures DE OFFICE/OUTPATIENT NEW HIGH MDM 60 MINUTES Ciaran Cain PA [address] [facility] [address] [place] [address] Phone: tel: fax: Dannie Greer MD [address] [facility] [address] [place] [address] Phone: tel: fax: Referral ID Status Reason Start Date Expiration Date V isits Requested Visits Authorized [id number] Closed Specialty Services Required 12/11/2024 06/09/2025 1 1 Reason Comments 1st po back mass Care Teams (unrecognized sec tion and content) Metal Work Duct Installer Relationship Specialty Start Date End Date Raul Sun MD PCP - General Family Practice 02/11/21 Metal Work Duct Installer Relationship Specialty Start Date End Date Raul Sun MD PCP - General Family Practice 02/11/21 Metal Work Duct Installer Relationship Specialty Start Date End Date Raul Sun MD PCP - General Family Practice 02/11/21 Metal Work Duct Installer Relationship Specialty Start Date End Date Raul Sun MD PCP - General Family Medicine 02/11/21 Team Status: Inactive Member Role Status Dates Jf Walters MD Attending Provider Active AMMY Darling Primary Care Provider Active Team Status: Active Member Role Status Dates AMMY Darling Primary Care Provider Active Metal Work Duct Installer Relationship Specialty Start Date End Date Raul Sun MD PCP - General Family Medicine 02/11/21 Metal Work Duct Installer Relationship Specialty Start Date End Date Raul Sun MD PCP - General Family Medicine 02/11/21 Metal Work Duct Installer Relationship Specialty Start Date End Date Raul Sun MD PCP - General Family Medicine 02/11/21 Daina Judge CNP [address] [place] [address] Referring Internal Medicine 10/15/23 Metal Work Duct Installer Relationship Specialty Start Date End Date Raul Sun MD PCP - General Family Medicine 02/11/21 Daina Judge SALESFORCE DEVELOPER [address] [place] [address] Referring Internal Medicine 10/15/23 Metal Work Duct Installer Relationship Specialty Start Date End Date Raul Sun MD PCP - General Family Medicine 02/11/21 Daina Judge SALESFORCE DEVELOPER [address] [place] [address] Referring Internal Medicine 10/15/23 Metal Work Duct Installer Relationship Specialty Start Date End Date Raul Sun MD PCP - General Family Medicine 02/11/21 Daina Judge, SALESFORCE DEVELOPER [address] [place] [address] Referring Internal Medicine 10/15/23 Metal Work Duct Installer Relationship Specialty Start Date End Date Raul Sun MD PCP - General Family Medicine 02/11/21 Daina Judge, SALESFORCE DEVELOPER [address] [place] [address] Referring Internal Medicine 10/15/23 Metal Work Duct Installer Relationship Specialty Start Date End Date Raul Sun MD PCP - General Family Medicine 02/11/21 Daina Judge, SALESFORCE DEVELOPER [address] [place] [address] Referring Internal Medicine 10/15/23 Metal Work Duct Installer Relationship Specialty Start Date End Date Raul Sun MD PCP - General Family Medicine 02/11/21 Daina Judge, SALESFORCE DEVELOPER [address] [place] [address] Referring Internal Medicine 10/15/23 Metal Work Duct Installer Relationship Specialty Start Date End Date Reuben Judge MD [address] [place] [address] PCP - General Family Medicine 10/11/24 Metal Work Duct Installer Relationship Specialty Start Date End Date Reuben Judge MD [address] [place], [place] [id number] PCP - General Family Medicine 10/11/24 Metal Work Duct Installer Relationship Specialty Start Date End Date Reuben Judge MD [address] [place], [place] [id number] PCP - General Family Medicine 10/11/24 Metal Work Duct Installer Relationship Specialty Start Date End Date Reuben Judge MD [address] [place], [place] [id number] PCP - General Family Medicine 10/11/24 Metal Work Duct Installer Relationship Specialty Start Date End Date Reuben Judge MD [address] [place], [place] [id number] PCP - General Family Medicine 10/11/24 Metal Work Duct Installer Relationship Specialty Start Date End Date Reuben Judge MD [address] [place], [place] [id number] PCP - General Family Medicine 10/11/24 Metal Work Duct Installer Relationship Specialty Start Date End Date Reuben Judge MD [address] [place], [place] [id number] PCP - General Family Medicine 10/11/24 Metal Work Duct Installer Relationship Specialty Start Date End Date Reuben Judge MD [address] [place], [place] [id number] PCP - General Family Medicine 10/11/24 Goals (unrecognized section and content) Goals may be documented in a n alternate section (unrecognized sect ion and content) No Status Records FoundNo Status Records FoundNo Status Records FoundNo Status Records FoundNo Status Records FoundNo Status Records FoundNo Status Records Found INFORMATION SOURCE (unrecogn ized section and content) DATE CREATED AUTHOR 10/28/2022 [facility] DATE CREATED AUTHOR AUTHOR'S ORGANIZ ATION 12/01/2022 [facility] DATE CREATED AUTHOR AUTHOR'S ORGANIZ ATION 01/01/2024 [facility] DATE CREATED AUTHOR AUTHOR'S ORGANIZ ATION 06/06/2024 [facility] DATE CREATED AUTHOR AUTHOR'S ORGANIZ ATION 12/26/2024 [facility] DATE CREATED AUTHOR AUTHOR'S ORGANIZ ATION 01/10/2025 [facility] DATE CREATED AUTHOR AUTHOR'S ORGANIZ ATION 01/16/2025 [facility] FOR RECORDS PERTAINING TO PATIENTS WHO ARE [...] BE BASED ON THE PRIMARY CLINICAL RECORDS. [employer] provides no warranty or guarantee of the accuracy or completeness of information in this document.
[2025-01-18 16:22] LABS: Alanine Aminotransferase 21 U/L (16-63); Albumin Level 3.5 g/dL (3.4-5.0); Alkaline Phosphatase 106 U/L (46-116); Anion Gap 10.3; Aspartate Amino Transferase 19 U/L (15-37); BUN Creatinine Ratio 9.3; Bilirubin Total 0.5 mg/dL (0.2-1.0); Calcium 9.5 mg/dL (8.5-10.1); Carbon Dioxide 32.8 mmol/L (21.0-32.0); Chloride 98 mmol/L (98-107); Estimated GFR (African America >60 (>=60 mL/min/1.73m^2); Estimated GFR (Non-African Ame >60 (>=60 mL/min/1.73m^2); Globulin 3.6 g/dL; Glucose 143 mg/dL (74-106); Potassium 4.1 mmol/L (3.5-5.1); Sodium 137 mmol/L (136-145); Total Protein 7.1 g/dL (6.4-8.2)
== END 2025-01-18 15:27 | disposition home or self-care (01) ==
LOC: LAB 15:26
PROVIDERS: PCP Nurse Practitioner Family; Visit Provider Nurse Practitioner Family
DX: E87.1 Hypo-osmolality and hyponatremia (principal)
CPT/HCPCS: 36415; 80053

== ENCOUNTER 2025-04-11 15:33 | Outpatient (OUT) | payer MEDICARE, SELFPAY ==
--- OUTSIDE RECORDS SUMMARY | 2025-04-09 15:45 | XMS_ITS | Encounter Summary ---
Author Organization [facility] Healthcare Address [address] [place] [address] Care Team Providers Care Guzzler Builder Name Role Phone Daina Dye MD Unavailable [phone] Reason for Visit * Reason Comments Exc. of back mass Encounter Details Date Type Department Care Team (Late st Contact Info) Description 04/09/2025 3:45 PM EDT Office Visit [facility] [address] [place] [phone] David Greer MD [address] [address] EIC (epidermal inclusion cyst) (Primary Dx); Non-healing surgical wound, subsequent encounter Social History Tobacco Use Types Packs/Day Years Used Date Smoking Tobacco: Every Day Cigarettes 1.5 52.6 Started: 1973 Smokeless Tobacco: Never Alcohol Use Standard Drinks/Week Comments Not Currently 21 (1 standard drink = 0.6 oz pu re alcohol) Sex and Gender Information Value Date Recorded Sex Assigned at Not on file Legal Sex Male 11:15 PM EDT Gender Identity Not on file Sexual Orientation Not on file documented as of this encounter Last Filed Vital Signs Vital Sign Reading Time Taken Comments Blood Pressure - - Pulse - - Temperature - - Respiratory Rate - - Oxygen Saturation - - Inhaled Oxygen Concentration - - Weight 96.2 kg (212 lb) 04/09/2025 3:39 PM EDT Height 175.3 cm (5' 9 ) 04/09/2025 3:39 PM EDT Body Mass Index 31.31 04/09/2025 3:39 PM EDT documented in this encounter Progress Notes * David Gambino MD - 04/09/2025 3:45 PM EDT Images from the original note were not included. The patient is being followed for his upper back wound. He does have dressing changes performed by home health. On examination, patient is awake alert and in no acute distress. Upper back wound shows some loose eschar at the superior portion. This is removed. The wound itself has pink granulation tissue to the skin level. Wound measures 2 x 1 cm. There is no surrounding erythema or induration. There is a small amount of serous drainage. 1. EIC (epidermal inclusion cyst) 2. Non-healing surgical wound, subsequent encounter We will continue dressing changes with home health. Patient will follow up in about 2 weeks. documented in this encounter Plan of Treatment Upcoming Encounters Date Type Department Care Team (Late st Contact Info) Description 04/30/2025 3:30 PM EDT Office Visit [facility] 703 [facility] 150 [place] [phone] David Greer MD 703 [facility] 150 [place] [address] 05/09/2025 2:00 PM EDT Procedure Visit [facility] [address] [facility] 120 [place] [address] Juan Manuel Ford DPM 3006 [facility] 5 [place] [address] 10/30/2025 2:00 PM EDT Office Visit [facility] [address] [place] [address] [place] [address] Mary Olguin MD [address] [place] [address] [place] [address] documented as of this encounter Visit Diagnoses Diagnosis EIC (epidermal inclusion cyst)- Primary Sebaceous cyst Non-healing surgical wound, subsequent encounter documented in this encounter Care Teams Guzzler Builder Relationship Specialty Start Date End Date Daina Dye MD [address] [place] [address] Primary Care Provider Family Medicine 04/09/25 documented as of this encounter
--- OUTSIDE RECORDS SUMMARY | 2025-04-11 15:37 | XMS_ITS | Encounter Summary ---
Author Organization [facility] Address [address] [place] [address] Care Team Providers Care Telemetry Registered Nurse Name Role Phone Daina Dye MD Unavailable [phone] Encounter Details Date Type Department Care Team (Latest Contact Info) Description 04/09/2025 Travel Social History Tobacco Use Types Packs/Day Years [...] on file documented as of this encounter Plan of Treatment Upcoming Encounters Date Type Department Care Team (Late st Contact Info) Description 04/30/2025 3:30 PM EDT Office Visit [facility] 703 [facility] 150 [place] [address] David Greer MD 703 [facility] 150 [place] [address] 05/09/2025 2:00 PM EDT Procedure Visit [facility] 112 [facility] 120 [place] [address] Juan Manuel Ford DPM 3006 [facility] 5 [place] [address] 10/30/2025 2:00 PM EDT Office Visit [facility] [address] [facility] [address] [place] [address] Mary Olguin MD [address] [address] documented as of this encounter Visit Diagnoses Not on filedocumented in this encounter Care Teams Telemetry Registered Nurse Relationship Specialty Start Date End Date Daina Dye MD [facility] [place] [address] Primary Care Provider Family Medicine 04/09/25 documented as of this encounter
--- OUTSIDE RECORDS SUMMARY | 2025-04-11 15:37 | XMS_ITS | Encounter Summary ---
Author Organization [facility] Address [address] [place] [address] Care Team Providers Care Lithograph Printer Name Role Phone Reuben Dye MD Primary Care Provider [phone] Daina Dye MD Unavailable [phone] Unallocated, [facility] Provider Primary Care Provi jed Encounter Details Date Type Department Care Team (Late st Contact Info) Description 01/24/2023 [facility] [address] [facility] 350 [place] [phone] Mary Olguin MD [address] [facility] 350 [place] [address] Social History Tobacco Use Types Packs/Day Years Used Date Smoking Tobacco: Every Day Cigarettes Tobacco Cessation:Ready to Q uit: Not Asked; Counseling Given: Not Answered Alcohol Use Standard Drinks/Week Comments Yes 0 (1 standard drink = 0.6 oz pur e alcohol) Sex and Gender Information Value Date Recorded Sex Assigned at Not on file Legal Sex Male 11:15 PM EDT Gender Identity Not on file Sexual Orientation Not on file documented as of this encounter Plan of Treatment Upcoming Encounters Date Type Department Care Team (Late st Contact Info) Description 04/30/2025 3:30 PM EDT Office Visit [facility] 703 [facility] 150 [place] [address] David Greer MD 703 [facility] 150 [place] [address] 05/09/2025 2:00 PM EDT Procedure Visit [facility] [address] [place] [phone] Juan Manuel Ford, DPAaron [address] [facility] [address] [place] [address] 10/30/2025 2:00 PM EDT Office Visit [facility] [address] [place] [place] [address] Mary Olguin MD [address] [place] [address] [place] [address] documented as of this encounter Visit Diagnoses Not on filedocumented in this encounter Care Teams Lithograph Printer Relationship Specialty Start Date End Date Reuben Dye MD [address] [place] [address] PCP - General Family Medicine 10/11/24 04/08/25 Unallocated, Maggy Modi MD [address] [place] [address] PCP - General Family Medicine 04/11/25 Daina Dye MD [address] [place] [address] Primary Care Provider Family Medicine 04/09/25 documented as of this encounter
--- OUTSIDE RECORDS SUMMARY | 2025-04-11 15:37 | XMS_ITS | Encounter Summary ---
Author Organization [facility] Healthcare Address [address] [place] [address] Care Team Providers Care Plywood Layup Line Core Layer Name Role Phone Reuben Dye MD Primary Care Provider [phone] Daina Dye MD Unavailable [phone] Unallocated, [facility] Provider Primary Care Provi jed Encounter Details Date Type Department Care Team (Late Contact Info) Description 01/15/2025 Orders Only [facility] [address] [place] [address] David Greer MD [address] [place] [address] Social History Tobacco Use Types Packs/Day [...] Encounters Date Type Department Care Team (Late Contact Info) Description 04/30/2025 3:30 PM EDT Office Visit [facility] [address] [place] [phone] David Greer MD [address] [place] [address] 05/09/2025 2:00 PM EDT Procedure Visit [facility] [address] [place] [address] Juan Manuel Ford DPAaron [address] [place] [address] [place] [address] 10/30/2025 2:00 PM EDT Office Visit [facility] [address] [place] [address] [place] [address] Mary Olguin MD [address] [place] [address] [place] [address] documented as of this encounter Procedures Procedure Name Priority Date/Time Associated Diagnosis Comments GENERAL PATHOLOGY Routine 01/15/2025 10:49 AM EDT documented in this encounter Results * GENERAL PATHOLOGY (01/15/2025 10:49 AM EDT) David Gambino MD [facility] Final Result documented in this encounter Visit Diagnoses Not on filedocumented in this encounter Care Teams Plywood Layup Line Core Layer Relationship Specialty Start Date End Date Reuben Dye MD [address] [place], [place] [id number] PCP - General Family Medicine 10/11/24 04/08/25 Unallocated, Maggy Modi MD [address] [place] [address] PCP - General Family Medicine 04/11/25 Daina Dye MD [address] [place] [address] Primary Care Provider Family Medicine 04/09/25 documented as of this encounter
--- OUTSIDE RECORDS SUMMARY | 2025-04-11 15:37 | XMS_ITS | Encounter Summary ---
Author Organization [facility] Address [address] [place] [address] Care Team Providers Care Public School Teacher Name Role Phone Daina Dye MD Unavailable Unallocated, Cheli Provider Primary Care Provi jed Encounter Details Date Type Department Care Team (Latest Contact Info) Description 04/11/2025 Travel Social History Tobacco Use Types Packs/Day [...] EDT Office Visit [facility] 703 [facility] 150 [place] [address] David Greer MD 703 [facility] 150 [place] [address] 05/09/2025 2:00 PM EDT Procedure [facility] 112 [facility] 120 [place] [address] Juan Manuel Ford DPM 3006 [facility] 5 [place] [address] 10/30/2025 2:00 PM EDT Office Visit [facility] [address] [place] [address] [place] [address] Mary Olguin MD [address] [place] [address] [place] [address] documented as of this encounter Visit Diagnoses Not on filedocumented in this encounter Care Teams Public School Teacher Relationship Specialty Start Date End Date Unallocated, Cheli Modi MD [address] [place] [address] PCP - General Family Medicine 04/11/25 Daina Dye MD [address] [place] [address] Primary Care Provider Family Medicine 04/09/25 documented as of this encounter
--- OUTSIDE RECORDS SUMMARY | 2025-04-11 15:37 | XMS_ITS | Encounter Summary ---
Author Organization [facility] Healthcare Address [address] [place] [address] Care Team Providers Care Clinical Material Handler Name Role Phone Reuben Dye MD Primary Care Provider [phone] Daina Dye MD Unavailable [phone] Unallocated, [facility] Provider Primary Care Provi jed Encounter Details Date Type Department Care Team (Late Contact Info) Description 03/18/2025 Orders Only [facility] [address] [place] [phone] David Greer MD [address] [place] [address] Social History Tobacco Use Types Packs/Day [...] Description 04/30/2025 3:30 PM EDT Office Visit [facility] [address] [place] [phone] David Greer MD [address] [place] [address] 05/09/2025 2:00 PM EDT Procedure Visit [facility] [address] [place] [address] Juan Manuel Ford DPAaron [address] [place] [address] [place] [address] 10/30/2025 2:00 PM EDT Office Visit [facility] [address] [place] [address] [place] [address] Mary Olguin MD [address] [place] [address] [place] [address] documented as of this encounter Procedures Procedure Name Priority Date/Time Associated Diagnosis Comments GENERAL PATHOLOGY Routine 03/15/2025 10:18 AM EDT documented in this encounter Results * GENERAL PATHOLOGY (03/15/2025 10:18 AM EDT) David Gambino MD [facility] Final Result documented in this encounter Visit Diagnoses Not on filedocumented in this encounter Care Teams Clinical Material Handler Relationship Specialty Start Date End Date Reuben Dye MD [address] [place], [place] [id number] PCP - General Family Medicine 10/11/24 04/08/25 Unallocated, Maggy Modi MD [address] [place] [address] PCP - General Family Medicine 04/11/25 Daina Dye MD [address] [place] [address] Primary Care Provider Family Medicine 04/09/25 documented as of this encounter
--- OUTSIDE RECORDS SUMMARY | 2025-04-11 15:37 | XMS_ITS | Encounter Summary ---
Author Organization [facility] Address [address] [place] [address] Care Team Providers Care Auto Wash Buffer Name Role Phone Markel Roy MD Primary Care Provider [phone] Daina Dye [facility] Unavailable [phone] Source Comments In the event this information is protected by the Federal Confidentiality of Alcohol and Drug AbusePatient Records regulations: The Federal rules restrict any use of the information to criminally investigate or prosecute any alcohol or drug abuse patient.[facility] Encounter Details Date Type Department Care Team (Late st Contact Info) Description 03/01/2022 Get Medical Advice Ophthalmology [address] [facility] [place] [address] Radha Perez MD [address] [place] [address] left eye Social History Tobacco Use Types Packs/Day Years Used Date Smoking Tobacco: Every Day Cigarettes Smokeless Tobacco: Never Alcohol Use Standard Drinks/Week Comments Yes 4 (1 standard drink = 0.6 oz pur e alcohol) per day Area Deprivation Index Answer Date Ryan rded National Score (1-100), lower number is lower ri 74 02/17/2022 State Score (1-10), lower number is lower risk N ot on file 02/17/2022 Data from: https://www.neighborhoodatlas.medicine.[facility].edu/. Last address used for calculation [address] 02/17/2022 Sex and Gender Information Value Date Recorded Sex Assigned at Not on file Legal Sex Male 1:42 PM EST Gender Identity Not on file Sexual Orientation Not on file documented as of this encounter Miscellaneous Notes * Telephone Encounter - Ewa Alegria COA - 03/01/2022 11:13 AM EDT Please call and schedule for any available provider for today. SENTHIL Ballesteros March 01, 2022 11:13 AM documented in this encounter Plan of Treatment Not on file documented as of this encounter Visit Diagnoses Not on filedocumented in this encounter Care Teams Auto Wash Buffer Relationship Specialty Start Date End Date Markel Roy MD PCP - General Family Medicine 02/11/21 Daina Dye CNP [address] [place] [address] Referring Internal Medicine 10/15/23 documented as of this encounter
--- OUTSIDE RECORDS SUMMARY | 2025-04-11 15:37 | XMS_ITS | Clinical Summary ---
Author Organization [facility] Address [address] [place] [id number] Care Team Providers Care Corsets Salesperson Name Role Phone Markel Roy MD Primary Care Provider [phone] Daina Dye DRY GOODS CLERK Unavailable [phone] Allergies Active Allergy Reactions Criticality Noted Date Comments Penicillins Rash 11/03/2016 Medications MINOCYCLINE HCL (MINOCYCLINE ORAL) Take by mouth. Activ e traZODone (DESYREL) 150 mg tablet Take 150 mg by mouth daily at bedtime. Active FLUoxetine HCl (PROZAC) 40 mg capsule Take 40 mg by mouth once daily. Active naltrexone (TREXAN) 50 mg tablet 9 Active busPIRone (BUSPAR) 5 mg tablet 9 Active metFORMIN (GLUCOPHAGE) 500 mg tablet 9 Active furosemide (LASIX) 20 mg tablet 9 Active losartan-hydro chlorothiazide (HYZAAR) 50-12.5 mg per tablet 9 Active atenolol (TENORMIN) 50 mg tablet 9 Active loratadine (CLARITIN) 10 mg tablet Take 10 mg by mouth once daily. Active Cholecalcifero l, Vitamin D3, 50 mcg (2,000 unit) cap Take by mouth. Activ e amLODIPine (NORVASC) 5 mg tablet Take 5 mg by mouth once daily. 1 Active doxycycline (VIBRAMYCIN) 50 mg capsule Take 50 mg by mouth once daily. 2 Active atorvastatin (LIPITOR) 10 mg tablet 2 Active albuterol HFA (PROVENTIL HFA, VENTOLIN HFA) 90 mcg/actuation inhaler 3 Active spironolactone (ALDACTONE) 25 mg tablet Take 25 mg by mouth every morning. 4 Active diclofenac, EC, (VOLTAREN) 75 mg EC tablet Take 1 tablet by mouth every 12 hours. 4 Active potassium chloride SR (MICRO-K) 10 mEq CR capsule Take 10 mEq by mouth two times a day. Take with food 4 Active iv contrast (will be provided with [...] MR contrast administration guidelines link. 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 Blepharitis of upper and lower eyelids of both e yes 11/10/2016 Dermatochalasis of both upper eyelids 11/10/2016 History of retinal detachment 11/10/2016 Epiretinal membrane (ERM) of left eye 11/10/2016 Immunizations Immunization Administration Dates Next Due COVID-19 original vaccine, a ge 12+ yr, monovalent ([employer] - PURPLE TOP) 11/14/2020,10/24/2020 Family History Medical History Relation Comments Diabetes Brother Heart Brother Hypertension Brother Hypertension Father No Ocular Disease Father Hypertension Mother No Ocular Disease Mother Relation Status Comments Brother Father Mother Social History Tobacco Use Types Packs/Day Years Used Date Smoking Tobacco: Every Day Cigarettes Smokeless Tobacco: Never Tobacco Cessation:Ready to Q uit: Not Asked; Counseling Given: Not Answered Alcohol Use Standard Drinks/Week Comments Yes 4 (1 standard drink = 0.6 oz pur e alcohol) per day Area Deprivation Index Answer Date Ryan rded National Score (1-100), lower number is lower ri sk 87 10/24/2023 State Score (1-10), lower number is lower risk 8 10/24/2023 Data from: https://www.neighborhoodatlas.medicine.[facility].edu/. Last address used for calculation [address] 10/24/2023 Sex and Gender Information Value Date Recorded Sex Assigned at Not on file Legal Sex Male 1:42 PM EST Gender Identity Not on file Sexual Orientation Not on file Last Filed Vital Signs Vital Sign Reading Time Taken Comments Blood Pressure 157/66 10/24/2023 2:53 PM EST Pulse 79 10/24/2023 2:53 PM EST Temperature 36.7 C (98 F) 02/07/2017 11:24 AM EDT Respiratory Rate 16 02/07/2017 12:17 PM EDT Oxygen Saturation 97% 02/07/2017 12:17 PM EDT Inhaled Oxygen Concentration - - Weight 97.5 kg (215 lb) 10/24/2023 2:53 PM EST Height 175.3 cm (5' 9 ) 02/07/2017 11:24 AM EDT Body Mass Index 31.75 02/07/2017 11:24 AM EDT Plan of Treatment Health Maintenance Due Date Last Done Comments Diabetic Foot Exam 11/27/1959 Annual PCP Team Chronic Dise ase Visit 11/27/1967 Anxiety Screening 11/27/1967 Depression Screening 11/27/1967 Hepatitis C Screening 11/27/1967 DTaP,Tdap,Td Vaccine (1 - Tdap) 1968 Pneumococcal Vaccine: 50+ (1 of 2 - PCV) 1968 CT Colonography 1994 Cologuard (FIT-DNA) 1994 Colonoscopy 1994 Sigmoidoscopy 1994 Shingrix Vaccine (1 of 2) 11/27/1999 HbA1C 01/24/2020 07/25/2019 Colorectal Cancer Screening 07/25/2020 Fecal Occult Blood 07/25/2020 07/25/2019, 07/25/2019 LDL Cholesterol 07/25/2020 07/25/2019, 07/25/2019 Urine Albumin:Creatinine Ratio 07/25/2020 07/25/2019 Advance Directive Discussion 08/22/2024 Medicare Advantage Annual We llness Visit 08/22/2024 RSV Vaccine (1 - 1-dose 75+ series) 2024 Dilated Retinal Exam 12/26/2024 12/27/2023, 06/27/2023, 06/06/2023, Additional history exists Influenza Vaccine (#1) 2025 Medical Devices Implanted Type Area Medical Social Worker Device Identifier Shelf Expiration Date Model / Serial / Lot Lens Acrysof Iq +19.5 Diopter Natural Stableforce 0 D Biconvex 118.7 - [id number] Implanted:Qty: 1 [facility]07/[facility] Intraocular Lens Left: Eye - Lens [facility] 08/21/2021 [id number] 19.5 / [id number] / Procedures Procedure Name Priority Date/Time Associated Diagnosis Comments HEMOGLOBIN A1C Fax 07/25/2019 3:55 PM EST LDL CHOLESTEROL DIR Fax 07/25/2019 3 :55 PM EST ALBUMIN/CREATININE RATIO, URINE Fax 07/25/2019 3:55 PM EST IMMUNOCHEMICAL FECAL OCCULT BLOOD TEST Fax 07/25/2019 8:22 AM EST from Last 3 Months or Most Recently Relevant to Health Maintenance Results * LDL CHOLESTEROL DIR (07/25/2019 3:55 PM EST) LDL Cholesterol, Direct 61 <100 mg/dL 07/26/2019 8:09 AM EST [facility] Comment: <100 mg/dL, Optimal 100-129 mg/dL, Near optimal/above optimal 130-159 mg/dL, Borderline high 160-189 mg/dL, High >189 mg/dL, Very high Secondary prevention optimal LDL Cholesterol levels are recommended to be < 70 mg/dL 07/25/2019 3:55 PM EST 07/25/2019 10:32 PM EST Cc Provider LABORATORY Final Result [facility] [address] [place] [address] [facility] [address] [place] [address] * ALBUMIN/CREAT RATIO RND UR (07/25/2019 3:55 PM EST) Creatinine, Ur Random (UCRR) 43.4 20 - 300 mg/dL 07/26/2019 4:01 PM EST [facility] Albumin, Urine Random <12.0 mg/L 07/26/2019 4:01 PM EST [facility] Albumin/Creat Ratio Not calculated <30 mg/g 07/26/2019 4:01 PM EST [facility] URINE SPECIMEN / Unknown 07/25/2019 3:55 PM EST 07/25/2019 10:32 PM EST Ccf Provider LABORATORY Final Result Performing Organization Address City/[facility]/ZIP Co de Phone Number [facility] [address] [place] [address] [facility] [address] [place] [address] * (ABNORMAL) HGB A1C (07/25/2019 3:55 PM EST) Hemoglobin A1C 6.3(H) 4.3 - 5.6 % 07/26/2019 7:19 AM [facility] Comment: [place] Diabetes Association guidelines indicate that patients with HgbA1c in the range 5.7-6.4% are at increased risk for development of diabetes, and intervention by lifestyle modification may be beneficial. HgbA1c greater or equal to 6.5% is considered diagnostic of diabetes. Estimated Average Glucose 134 mg/dL 07/26/2019 7:[address] [facility] Comment: eAG: (Estimated average glucose) is a calculated value from HgbA1c and is claims representative of the average blood glucose level in the last 2-3 month period. WHOLE BLOOD SPECIMEN / Unknown 07/25/2019 3:55 PM EST 07/25/2019 10:32 PM EST [facility]cf Provider LABORATORY Final Result [facility] [address] [place] [address] [facility] [address] [place] [address] * FECAL OCCULT BLOOD TEST (07/25/2019 8:22 AM EST) Occult Blood, Stool Negative Negative 07/30/2019 11:23 AM EST [facility] Comment: This test was developed and its performance characteristics determined by [facility]'s [facility] ([facility]). It has not been cleared or approved by the FDA. [facility] is regulated under CLIA as qualified to perform high complexity testing. This test is used for clinical purposes. It should not be regarded as investigational or for research. STOOL SPECIMEN / Unknown 07/25/2019 8:22 AM EST 07/28/2019 8:22 AM EST us [facility]cf Provider LABORATORY Final Result [facility] [address] [place] [address] [facility] [address] [place] [address] from Last 3 Months or Most Recently Relevant to Health Maintenance Insurance [employer] O Care Teams Corsets Salesperson Relationship Specialty Start Date End Date Markel Roy MD PCP - General Family Medicine 02/11/21 Daina Dye CNP [address] [place] [address] Referring Internal Medicine 10/15/23
--- OUTSIDE RECORDS SUMMARY | 2025-04-11 15:37 | XMS_ITS | Encounter Summary ---
Author Organization [facility] Healthcare Address [address] [place] [address] Care Team Providers Care Perfumer Name Role Phone Reuben Dye MD Primary Care Provider [phone] Daina Dye MD Unavailable [phone] Unallocated, Primary [facility] Provider Primary Care Provi jed Encounter Details Date Type Department Care Team (Late st Contact Info) Description 12/18/2024 Results Follow-Up [facility] [address] [place] [address] Nikky Cain PA [address] [place] [address] Aerobic culture, Aerobic culture, RESULT, Specimen Status Report Social History Tobacco Use Types Packs/Day Years Used Date Smoking Tobacco: Every Day Cigarettes Smokeless Tobacco: Never Alcohol Use Standard Drinks/Week Comments Yes 0 [...] Description 04/30/2025 3:30 PM EDT Office Visit [facility] [address] [facility] [address] [address] [place] [address] David Greer MD [address] [facility] [address] [place] [address] 05/09/2025 2:00 PM EDT Procedure Visit [facility] [address] [place] [id number] Juan Manuel Ford DPAaron [address] [facility] [address] [place] [address] 10/30/2025 2:00 PM EDT Office Visit [facility] [address] [place] [address] Mary Olguin MD [address] [place] [address] documented as of this encounter Visit Diagnoses Not on filedocumented in this encounter Care Teams Perfumer Relationship Specialty Start Date End Date Reuben Dye MD [address] [place], [place] [id number] PCP - General Family Medicine 10/11/24 04/08/25 Unallocated, Cheli Modi MD [address] [place], [place] [id number] PCP - General Family Medicine 04/11/25 Daina Dye MD [address] [place] [address] Primary Care Provider Family Medicine 04/09/25 documented as of this encounter
--- OUTSIDE RECORDS SUMMARY | 2025-04-11 15:37 | XMS_ITS | Clinical Summary ---
Author Organization [facility] Address [address] [place] [address] Care Team Providers Care Medical Claims Analyst Name Role Phone Daina Dye HIRO Primary Care Provider [phone] Allergies Active Allergy Reactions Criticality Noted Date Comments Amlodipine Swelling 10/21/2023 Cannot tolerate 10mg due to edema Penicillin Unknown,Other 10/29/2021 Medications furosemide (Lasix) 20 mg tablet Take 40 mg by mouth in the morning. 9 Active losartan (Cozaar) 50 mg tablet Take 50 mg by mouth in the morning. 3 Active albuterol 90 mcg/actuation inhaler 3 Active atorvastatin (Lipitor) 10 mg tablet 1 (one) time each day at the same time. 2 Active busPIRone (Buspar) 10 mg tablet every 12 (twelve) hours. 3 Active cholecalciferol, vitamin D3, 50 mcg (2,000 unit) capsule Take by mouth. Activ e loratadine (Claritin) 10 mg tablet 1 (one) time each day at the same time. 3 Active diclofenac (Voltaren) 75 mg EC tablet 1 tablet Orally Twice a day prn for 14 days 3 Active FLUoxetine (PROzac) 40 mg capsule Take 40 mg by mouth in the morning. Active metFORMIN (Glucophage) 500 mg tablet every 12 (twelve) hours. 9 Active traZODone (Desyrel) 150 mg tablet 1 (one) time each day at the same time. 2 Active potassium chloride ER (Micro-K) 10 mEq ER capsule TAKE 1 CAPSULE BY MOUTH TWICE DAILY WITH FOOD 4 Active carvedilol (Coreg) 12.5 mg tabletIndications :Primary hypertension Take 1 tablet (12.5 mg) by mouth with breakfast and with evening meal. 60 tablet 11 5 09/19/19 26 Active atenolol (Tenormin) 50 mg tablet Take 50 mg by mouth in the morning. Active naltrexone (Depade) 50 mg tablet Take 50 mg by mouth in the morning. Active amLODIPine (Norvasc) 5 mg tabletIndications :Primary hypertension TAKE 1 TABLET BY MOUTH EVERY DAY IN THE MORNING 90 tablet 3 5 Active Active Problems Problem Noted Date Diagnosed Date WILLAMS (dyspnea on exertion) 09/21/2023 Assessment & Plan (09/21/2023 4:49 PM EST): Reports WILLAMS, noted weight gain of 3 pounds since last visit 08/26/23 and he states he is up about 30-40 pounds over the last year. Admits chronic BLE edema and feels like all his cloths are tight- especially around the belly. Stop amlodipine and start aldactone for HTN and fluid retention. Repeat BMP in 1 week to check renal function and electrolytes. Edema of both lower extremities 09/21/2023 Assessment & Plan (02/09/2024 1:29 PM EDT): Greatly improved with increased dose of lasix. Trace edema noted today Renal function stable Assessment & Plan (10/21/2023 2:13 PM EST): PCP increased lasix to 40 mg daily, and I started aldactone at last visit. Renal function remains normal Assessment & Plan (09/21/2023 4:53 PM EST): Start aldactone and continue lasix 40 mg daily Repeat bmp 1 week Anxiety disorder 08/26/2023 08/26/2023 Benign prostatic hyperplasia (BPH) with post-voi d dribbling 08/26/2023 08/26/2023 Depression 08/26/2023 08/26/2023 Diabetes 08/26/2023 08/26/2023 Elevated PSA 08/26/2023 08/26/2023 Hypertension 08/26/2023 08/26/2023 Assessment & Plan (02/09/2024 1:27 PM EDT): Hypertension is unchanged- stable well controlled Continue current treatment regimen. Dietary sodium restriction. Continue current medications. Blood pressure will be reassessed at the next regular appointment. Assessment & Plan (10/21/2023 2:11 PM EST): Hypertension is still elevated and leg swelling pt states is unchanged Resume norvasc 5 mg daily, continue atenolol, losartan bid, aldactone and lasix Assessment & Plan (09/21/2023 4:52 PM EST): Hypertension is uncontrolled, and with leg swelling/edema asked pt to stop norvasc and start aldactone. Repeat labs in 1 week and to notify office for any concerns/ side effects- muscle cramps, tenderness. Pt does not check b/p at home Noncompliance with treatment 08/26/202312/2023 Assessment & Plan (10/21/2023 2:12 PM EST): Patient is unsure of his medications, why he takes each med and sometimes not sure if he is taking them once or twice a day Smoker 08/26/2023 08/26/2023 Assessment & Plan (02/09/2024 1:27 PM EDT): Recommended smoking cessation after 5 min discussion and pt declined Assessment & Plan (09/21/2023 4:49 PM EST): Recommended smoking cessation- pt is not agreeable at this time Retinal hemorrhage, left eye 06/27/2023 Other rosacea 01/25/2023 08/26/2023 Type 2 diabetes mellitus without retinopathy 08/26/2023 Pseudophakia, left eye 11/20/2018 Blepharitis of upper and lower eyelids of both e yes 11/10/2016 08/26/2023 Dermatochalasis of both upper eyelids 11/10/2016 08/26/2023 History of retinal detachment 11/10/2016 Nuclear senile cataract of right eye 11/10/2016 08/26/2023 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 0 08/26/2023 Encounters Date Type Department Care Team Description 02/27/2025 Refill [facility] [address] [place] [address] Hilda Burns CNP Primary hypertension 02/03/2025 Refill [facility] [address] [facility] [place] [address] Hilda Burns CNP Primary hypertension from Last 3 Months Family History Medical History Relation Name Comments Coronary artery disease Father Stroke Father Relation Name Status Comments Father Mother Social History Tobacco Use Types Packs/Day Years Used Date Smoking Tobacco: Every Day Cigarettes Smokeless Tobacco: Never Tobacco Cessation:Ready to Q uit: Not Asked; Counseling Given: Not Answered Alcohol Use Standard Drinks/Week Comments Yes 0 (1 standard drink = 0.6 oz pur e alcohol) 4-5 cans of beer daily [place] Safety & Environment Answer Date Rec orded Fear of Current or Ex-Partner Not on file Emotionally Abused Not on file 10/13/2023 Physically Abused Not on file 10/13/2023 Sexually Abused Not on file 10/13/2023 Physically or Sexually Abused Not on file Sex and Gender Information Value Date Recorded Sex Assigned at Not on file Legal Sex Male 12:36 AM EDT Gender Identity Not on file Sexual Orientation Not on file Last Filed Vital Signs Vital Sign Reading Time Taken Comments Blood Pressure 129/78 12/17/2024 3:13 PM EDT Pulse 74 12/17/2024 3:13 PM EDT Temperature - - Respiratory Rate - - Oxygen Saturation 98% 12/17/2024 3:13 PM EDT Inhaled Oxygen Concentration - - Weight 96.2 kg (212 lb) 12/17/2024 3:13 PM EDT Height 175.3 cm (5' 9 ) 12/17/2024 3:13 PM EDT Body Mass Index 31.31 12/17/2024 3:13 PM EDT Plan of Treatment Health Maintenance Due Date Last Done Comments CT Colonography 1949 Colonoscopy 1949 Diabetes: Hemoglobin A1C 1949 FIT-DNA 1949 FIT 1950 Medicare Annual Wellness (AWV) 1950 Sigmoidoscopy 1949 Diabetes: Retinopathy Screening 11/27/1959 Depression Screening 1961 Diabetes: Urine Protein Screening 1968 Pneumococcal Vaccine: 50+ Years (1 of 2 - PCV) 1968 Adult Tetanus 11/27/1971 Zoster Vaccines (1 of 2) 11/27/1999 Fall Risk Screening 2014 Colorectal Cancer Screening 07/25/2020 FOBT 07/25/2020 07/25/2019 COVID-19 Vaccine ( season) 2024 08/12/2022, 03/12/2022, 11/14/2020, Additional history exists Influenza Vaccine (#1) 2025 HIB Vaccines Aged Out No longer eligi ble based on patient's age to complete this topic HPV Vaccines Aged Out No longer eligi ble based on patient's age to complete this topic IPV Vaccines Aged Out No longer eligi ble based on patient's age to complete this topic Meningococcal B Vaccine Aged Out No l onger eligible based on patient's age to complete this topic Meningococcal Vaccine Aged Out No treva vignesh eligible based on patient's age to complete this topic Rotavirus Vaccines Aged Out No longer eligible based on patient's age to complete this topic [place] [address] [employer] Care Teams Medical Claims Analyst Relationship Specialty Start Date End Date Daina Dye CNP [address] [place] [address], [address] [place], [place] [id number] PCP - General Family Medicine 08/24/23
[2025-04-11 16:36] LABS: Hematocrit 45.3 % (42.0-54.0); Hemoglobin 15.5 g/dL (14.0-18.0); Immature Granulocytes Abs Auto 0.02 10^3/uL (0.00-0.03); Immature Granulocytes Pct Auto 0.3 % (0.0-0.5); Lymphocytes Absolute Auto 1.9 10^3/uL (1.2-3.8); Mean Corpuscular HGB Conc 34.2 g/dL (29.9-35.2); Mean Corpuscular Hemoglobin 33.5 pg (25.9-34.0); Mean Corpuscular Volume 97.8 fL (80.0-94.0); Platelet Count 236 10^3/uL (150-450); Red Blood Count 4.63 10^6/uL (4.70-6.10); White Blood Count 6.7 10^3/uL (4.0-11.0)
--- OUTSIDE RECORDS SUMMARY | 2025-04-11 16:59 | XMS_ITS | CCD ---
Author Organization [facility] Inform ion Partnership [facility] Care Team Providers Care Topper Press Operator Name Role Phone Raul Sun MD Primary Care Provider [phone] DAINA JUDGE Primary Care Physician MD Jf [...] Unavailable Raul Sun MD Primary Care Provider [phone] Daina Judge CNP Unavailable [phone] Raul Sun MD Primary Care Provider Reanna [...] Primary Care Unavailable Unavailable Primary Care Provider Unavailfesuts Judge MD, Reuben Lyons Primary Care Provider BRANDON BRUMFIELD Attending Unavailable BRANDON BRUMFIELD Attending Unavailable HILDA HA Attending Unavailable AYDEN LLAMAS Attending Unavailable Marnie DRAW FRAME RUNNER-C, Daina Dodge Primary Care Provider [phone] Dannie Greer MD Attending Provider Viv Rick MD Attending Provider Greer, Dannie Attending Unavailable Greer, Dannie Admitting Unavailable Daina Judge Primary Care Unavailable Greer, Dannie Admitting Unavailable Greer, Dannie Attending Unavailable Marnie, Daina Echo Primary Care Unavailable Daina Judge MD Unavailable KAIA OLGUIN Attending Unavailable JUAN MANUEL CROW Attending Unavailable CIARAN CAIN Attending Unavailable CIARAN CAIN Attending Unavailable GREER V, DANNIE Attending Unavailable CIARAN CAIN Referring Unavailable GREER V, DANNIE Attending Unavailable JUAN MANUEL CROW Attending Unavailable GREER V, DANNIE Attending Unavailable GREER V, DANNIE Attending Unavailable GREER V, DANNIE Attending Unavailable GREER V, DANNIE Attending Unavailable JUAN MANUEL CROW Attending Unavailable Allergies Allergy Classification Reported Allergen(s) Allergy Type Date of Onset Reaction(s) Facility (19 sources) Penicillins; Translations: [PENICILLINS] Drug Allergy 7 Rash [facility] (5 sources) Penicillin; Translations: [penicillin] Drug Allergy 2 Unknown skin reaction [facility] (20 sources) amLODIPine; Translations: [AMLODIPINE] Drug Allergy 4 Swelling [facility] Work Phone: (20 sources) Penicillin G Drug Allergy 3 Unknown [facility] (20 sources) Penicillins Drug Allergy 7 Other, Rash, Unknown [facility] (1 source) amLODIPine Drug Allergy 5 [facility] (1 source) Penicillins Drug allergy (disorder) 5 [facility] Medications Current Medications Medication Drug Class(es) Dates Sig (Normalized) Sig (Original) [id number] 200 actuat albuterol 0.09 mg/actuat metered dose inhaler (20 sources) beta2-Adrenergic Agonist Start: 01-09-2025 Albuterol Sulfate (Ventolin Hfa) 90 mcg/actuation HFA aerosol inhaler Active 2 INH INHALATION Q4H January 09, 2025 12:00am Complies with drug therapy Start: 04-17-2023 albuterol HFA (PROVENTIL HFA, VENTOLIN HFA) 90 mcg/actuation inhaler 04/17/2023 Active Ventolin HFA 108 (90 Base) MCG/ACT inhaler every 4 (four) hours Active amLODIPine 5 mg oral tablet (20 sources) Dihydropyridine Calcium Channel Rosie Start: 01-14-2021 take 1 tablet by mouth once daily Amlodipine (Norvasc) 5 mg tablet Active 5 MG PO Daily January 09, 2025 12:00am Complies with drug therapy Comment on above: Take 5 mg by mouth o nce daily. atenolol 50 mg oral tablet (20 sources) beta-Adrenergic Rosie Start: 11-02-2018 End: 01-08-2025 atenolol (TENORMIN) 50 mg tablet 11/02/2018 Active atorvastatin 10 mg oral tablet (20 sources) HMG-CoA Reductase Inhibitor Start: 02-01-2022 take 1 tablet by mouth once daily Atorvastatin 10 mg tablet Active 10 MG PO Daily January 09, 2025 12:00am Complies with drug therapy busPIRone hydrochloride 10 mg oral tablet (20 sources) Start: 11-05-2022 take 1 tablet by mouth in the morning busPIRone (Buspar) 10 MG tablet Take 10 mg by mouth in the morning and 10 mg before bedtime. 11/05/2022 Active Start: 11-02-2018 busPIRone (BUS PAR) 5 mg tablet 11/02/2018 Active carvedilol 12.5 mg oral tablet (19 sources) alpha-Adrenergic Rosie, beta-Adrenergic Rosie Start: 01-09-2025 take 1 tablet by mouth twice daily Carvedilol 12.5 mg tablet Active 12.5 MG PO Twice daily January 09, 2025 12:00am Complies with drug therapy cholecalciferol 0.05 mg oral capsule (20 sources) Vitamin D Start: 03-14-2025 take 1 capsule by mouth three times weekly Cholecalciferol (Vitamin D3) (Vitamin D3) 50 mcg (2,000 unit) capsule Active 50 MCG PO .COMPLEX March 14, 2025 3:38pm 50 mcg orally Three times a week; Complies with drug therapy Start: 01-09-2025 End: 03-14-2025 take 1 capsule by mouth once daily Cholecalciferol (Vitamin D3) (Vitamin D3) 50 mcg (2,000 unit) capsule Discontinued 50 MCG PO Daily January 09, 2025 12:00am March 14, 2025 3:42pm Cholecalciferol, Vitamin D3, (VITAMIN D-3) 2,000 unit cap Take by mouth. 0 Active Comment on above: Take by mouth. diclofenac sodium 75 mg delayed release oral tablet (20 sources) Nonsteroidal Anti-inflammatory Drug Start: take 1 tablet by mouth twice daily [...] oral capsule (20 sources) Serotonin Reuptake Inhibitor Start: 01-09-2025 take 1 capsule by mouth once daily Fluoxetine (Prozac) 40 mg capsule Active 40 MG PO Daily January 09, 2025 12:00am Complies with drug therapy Comment on above: Take 40 mg by mouth once daily. furosemide 40 mg oral tablet (20 sources) Loop Diuretic Start: 01-31-2025 take 1 tablet by mouth once daily furosemide (Lasix) 40 MG tablet Take 40 mg by mouth Daily 01/31/2025 Active Start: 11-02-2018 End: 03-26-2025 take 1 tablet by mouth once daily Furosemide (Lasix) 20 mg tablet Discontinued 20 MG PO Daily January 09, 2025 12:00am March 14, 2025 3:40pm iv contrast (will be provided with radiology [...] 10 mg oral tablet (20 sources) Start: 03-14-2025 take 1 tablet by mouth once daily Loratadine (Allergy Relief (Loratadine)) 10 mg tablet Active 10 MG PO Daily March 14, 2025 12:00am Complies with drug therapy Start: 01-09-2025 End: 03-11-2025 take 1 tablet by mouth once daily Loratadine (Claritin) 10 mg tablet Discontinued 10 MG PO Daily January 09, 2025 12:00am March 11, 2025 3:01pm Start: 06-28-2022 take 3 tablets by [facility] once daily loratadine 10 mg Tab Oral route, 3 Refill(s), 1 tablet by mouth once a day, Refills(s) 0 Start Date: 06/28/22 Status: Ordered Comment on above: Take 10 mg by mouth once daily. losartan potassium 50 mg oral tablet (20 sources) Angiotensin 2 Receptor Rosie Start: 12-02-2024 take 1 tablet by mouth in the morning losartan (Cozaar) 50 MG tablet Take 50 mg by mouth in the morning and 50 mg before bedtime. 12/02/2024 Active Start: 12-02-2024 End: 03-14-2025 take 1 tablet by mouth twice daily Losartan 50 mg tablet Discontinued 50 MG PO Twice daily January 09, 2025 12:00am March 14, 2025 4:10pm metFORMIN hydrochloride 500 mg oral tablet (20 sources) Biguanide Start: 01-09-2025 take 1 tablet by mouth twice daily Metformin 500 mg tablet Active 500 MG PO Twice daily January 09, 2025 12:00am Complies with drug therapy Start: 11-02-2018 metFORMIN (GLU COPHAGE) 500 mg tablet 11/02/2018 Active Minocycline (15 sources) Tetracycline-class Drug MINOCYCL INE HCL (MINOCYCLINE ORAL) Take by mouth. Active MINOCYCLINE HCL (MINOCYCLINE ORAL) Take by mouth. 0 Active Comment on above: Take by mouth. naltrexone hydrochloride 50 mg oral tablet (20 sources) Opioid Antagonist Start: 9 take 1 tablet by mouth once daily Naltrexone 50 mg tablet Active 50 MG PO Daily January 09, 2025 12:00am Complies with drug therapy potassium chloride 10 meq extended release oral capsule (10 sources) Start: take 1 capsule by mouth twice daily Potassium Chloride 10 mEq capsule, extended release Active 10 MEQ PO Twice daily March 14, 2025 12:00am Complies with drug therapy Start: 09-08-2023 potassium chlo ride SR (MICRO-K) 10 mEq CR capsule Take 10 mEq by mouth two times a day. Take with food 09/08/2023 Active Comment on above: Take 10 mEq by mouth two times a day. Take with food spironolactone 25 mg oral tablet (20 sources) Aldosterone Antagonist Start: 06-03-20 End: 03-14-20 take 1 tablet by mouth in the [...] (20 sources) Serotonin Reuptake Inhibitor Start: 06-28-20 End: 03-14-20 take 1 tablet by mouth once daily at bedtime Trazodone 150 mg tablet Active 150 MG PO Daily at bedtime March 14, 2025 3:41pm Complies with drug therapy Comment on above: Take 150 mg by [...] fluorescein-benoxinate 0.25- 0.4 % 1 Drop (FLURESS) clobetasol propionate 0.5 mg/ml topical cream (20 sources) Corticosteroid Start: 01-09-2025 End: 03-14-2025 Clobetasol 0.05 % cream Discontinued 1 APPLIC TOPICAL As Directed January 09, 2025 12:00am March 14, 2025 3:42pm Start: 01-25-2022 clobetasol (Te movate) 0.05 % cream 01/25/2022 Active Start: 01-25-2022 clobetasol (Te movate) 0.05 % cream apply to bilateral lower legs topically Twice a day as needed for 30 day(s) 01/25/2022 Active doxycycline monohydrate 50 mg oral capsule (20 sources) Tetracycline-class Drug Start: 11-30-2024 End: 01-08-2025 take 1 capsule by mouth twice daily doxycycline (Monodox) 100 MG capsule Indications: EIC (epidermal inclusion cyst) Take 1 capsule, by mouth bid, x 10 days 20 capsule 11/30/2024 01/08/2025 Discontinued (Therapy completed) Start: 01-26-2024 End: 04-09-2025 take 1 capsule by mouth once daily doxycycline (Monodox) 50 MG capsule Indications: Other rosacea Take 1 capsule, by mouth, once daily, 30 days 30 capsule 11 10/02/2024 04/09/2025 Discontinued (Therapy completed) Start: 01-25-2022 take 1 capsule by [facility] once daily doxycycline (VIBRAMYCIN) 50 mg capsule Take 50 mg by mouth once daily. 01/25/2022 Active Comment on above: Take 50 mg by mouth once daily. hydroCHLOROthiazide 12.5 mg / losartan potassium 50 mg oral tablet (20 sources) Thiazide Diuretic, Angiotensin 2 Receptor Rosie Start: 025 End: take 1 tablet by mouth twice daily Losartan-Hydrochlor othiazide 50-12.5 mg tablet Discontinued 1 TAB PO Twice daily January 09, 2025 12:00am March 14, 2025 4:09pm Start: 06-28-2022 hydrochlorothi azide-losartan 12.5 mg-50 mg Tab Refill(s) 0 Start Date: 06/28/22 Status: Ordered Start: 11-02-2018 losartan-hydro chlorothiazide (HYZAAR) 50-12.5 mg per tablet 11/02/2018 Active phenylephrine hydrochloride 25 mg/ml ophthalmic solution (4 [...] cataract, right eye] Onset: 7 Chronic Chronic obstructive pulmonary disease and bronchiectasis (2 sources) Chronic obstructive lung disease; Translations: [Chronic obstructive pulmonary disease, unspecified] 03-14-2025 Chronic Chronic ulcer of skin (1 source) 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; Translations: [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] Onset: 5 Chronic Complications of surgical procedures or medical care (4 sources) Non-healing surgical wound; Translations: [Other complications of procedures, not elsewhere classified, subsequent encounter] Onset: 5 04-09-2025 Episodic Diabetes mellitus with complications (3 sources) Polyneuropathy due to diabetes mellitus; Translations: [Diabetes mellitus due to underlying condition with diabetic polyneuropathy] 07-05-2024 Chronic Diabetes mellitus without complication (20 sources) Diabetes mellitus type 2 without retinopathy; Translations: [Type 2 diabetes mellitus without complications] Onset: 1 Chronic Disorders of lipid metabolism (5 sources) Hyperlipidemia, unspecified; Translations: [Mixed hyperlipidemia] Onset: 2 Chronic Essential hypertension (7 sources) Hypertensive disorder; Translations: [Essential (primary) hypertension] Onset: 4 08-08-2019 Chronic Fluid and electrolyte disorders (4 sources) Hypo-osmolality and hyponatremia; Translations: [Hyponatremia] Onset: 5 Episodic Hyperplasia of prostate (6 [...] Other eye disorders (2 sources) History of pcfxfcm-xlbtxvcc-sjiksi (YAG) laser capsulotomy of lens; Translations: [Cataract [...] seborrheic keratosis] 10-03-2024 Episodic Other skin disorders (20 sources) Epidermoid cyst; Translations: [Epidermal cyst] Onset: 5 10-02-2024 Episodic Other skin disorders (1 source) Localized swelling, mass and lump, trunk; Translations: [Localized swelling, mass and lump, trunk] Onset: 5 Episodic Residual codes; unclassified (2 sources) Pain; Translations: [Pain, unspecified] 12-11-2024 Episodic Residual codes; unclassified (2 sources) Localized edema; Translations: [Localized edema] Onset: 4 Episodic Retinal detachments; defects; vascular occlusion; and retinopathy (20 sources) Epiretinal membrane of left eye; Translations: [Puckering of macula, left eye] Onset: 7 Chronic Skin and subcutaneous tissue infections (1 source) Local infection of the skin and subcutaneous tissue, unspecified; Translations: [Local infection of the skin and subcutaneous tissue, unspecified] Onset: 5 Episodic Substance-related disorders (2 sources) Nicotine dependence, unspecified, [...] and lower eyelids] Onset: 11-10-2016 11-10-2016 Episodic Open wounds of head; neck; and trunk (20 sources) Traumatic and/or non-traumatic injury of back; Translations: [Unspecified open wound of unspecified back wall of thorax without penetration into thoracic cavity, initial encounter] Onset: 01-08-2025 01-08-2025 Episodic Other eye disorders (5 sources) Excess [...] Test Name Value Interpretation Reference Range Facility Capillary blood glucose sandra urement by glucometer (mass/volume)Ordered By: Dannie Greer on 03-11-2025 Glucose [Mass/Vol] 180 mg/dL Normal [facility] Comment on above: Random Glucose Refer ence Range is dependent on time and content of last meal. Glucose of more than 200 mg/dL in a nonstressed, ambulatory subject supports the diagnosis of Diabetes Mellitus. Result Comment: [facility] Glucose Reference Range is dependent on time and content of last meal. Glucose of more than 200 mg/dL in a nonstressed, ambulatory subject supports the diagnosis of Diabetes Mellitus. PERFORMED BY: [facility] [address] [place] [address] PATHOLOGIST AMBULATORY NURSE IAN BROWN M.D. Performed By: #### G LESLEY #### Point of Care testing , GLUCOSE POCT GLUCOMETERSon 0 03-11-2025 Glucose [Mass/Vol] 180 mg/dL [facility] Comment on above: Random Glucose Refer ence Range is dependent on time and content of last meal. Glucose of more than 200 mg/dL in a nonstressed, ambulatory subject supports the diagnosis of Diabetes Mellitus. [facility] Bhavesh 03-11-2025 L ------ Specimen: [id number] Received: 03/11/25 Status: JOSEPH Billy Num: [id number] Spec Type: Surgical Subm Dr: Dannie Greer MD Tissues: A Soft Tissue Mass - Simple Excision (except lipoma) (UPPER BACK MASS) Procedures: Freddy GATICA/Ishmael L5 Age/ Patient Sex Location Account Attending Physician Gianfranco Leblanc 74/M [place] [id number] Dannie Greer MD SPEC NUM: [id number] RECD: 03/11/25 STATUS: JOSEPH PURCELL NUM: [id number] GREG: 03/11/25-[address] [facility] [address]: Dannie Greer MD ENTERED: 03/11/[address]: SPEC TYPE: Surgical DEPT: S ENTERED BY: [id number] RECV BY: [id number] ORDERED: EN, Gross/Micro L5 ORDERED: EN, Gross/Micro L5 Pathological Diagnosis Upper back, labeled as mass , excision: - Epidermal inclusion cyst. Clinical Information Upper back mass Gross Description Received in formalin labeled with the patients name, date of , and upper back mass is a disrupted cystic structure, 3 x 2.5 x 2 cm. The capsular surface is bradshaw-pink, smooth and glistening with focal adhesions and a 0.5 cm in greatest dimension transmural defect. The specimen is inked black and sectioned to reveal a smooth lined internal cavity, filled with bradshaw-delaney, friable material. A circulation sales representative section is submitted in a single cassette. (1, , [id number]) Microscopic Description Microscopic examination is performed. Specimen: [id number] Received: 03/11/25 Status: JOSEPH Purcell Num: [id number] Spec Type: Surgical Subm Dr: Dannie Greer MD Tissues: A Soft Tissue Mass - Simple Excision (except lipoma) (UPPER BACK MASS) Procedures: Freddy GATICA/Ishmael L5 Patient: Shari Leblancs [id number] (Continued) Specimen: [id number] Received: 03/11/25 (Continued) Signed (signature on file) Palomo Hardin MD 03/15/25 1431 Specimen: Received: 03/11/25 Status: JOSEPH Purcell Num: [id number] Spec Type: Surgical Subm Dr: Dannie Greer MD Tissues: A Soft Tissue Mass - Simple Excision (except lipoma) (UPPER BACK MASS) Procedures: Freddy GATICA/Ishmael L5 Patient: Gianfranco Leblanc [id number] (Continued) Specimen: Received: 03/11/25 (Continued) CPT Codes 50754 Specimen: [id number] Received: 03/11/25 Status: JOSEPH Junevipin Num: [id number] Spec Type: Surgical Subm Dr: Dannie Greer MD Tissues: A Soft Tissue Mass - Simple Excision (except lipoma) (UPPER BACK MASS) Procedures: Freddy GATICA/Ishmael L5 Patient: Gianfranco Leblanc [id number] (Continued) Signed (signature on file) Palomo Hardin MD 03/15/25 3360 Normal [facility] Capillary blood glucose sandra urement by glucometer (mass/volume)Ordered By: Dannie Greer on 01-09-2025 Glucose [Mass/Vol] 150 mg/dL Normal [facility] Comment on above: Random Glucose Refer ence Range is dependent on time and content of last meal. Glucose of more than 200 mg/dL in a nonstressed, ambulatory subject supports the diagnosis of Diabetes Mellitus. Result Comment: [place] Glucose Reference Range is dependent on time and content of last meal. Glucose of more than 200 mg/dL in a nonstressed, ambulatory subject supports the diagnosis of Diabetes Mellitus. Performed By: #### G LESLEY #### Point of Care testing , GLUCOSE POCT GLUCOMETERSon 0 01-09-2025 COMMEMT1 Glu2: Cleaned Meter [facility] Glucose [Mass/Vol] 150 mg/dL [facility] Comment on above: Random Glucose Refer ence Range is dependent on time and content of last meal. Glucose of more than 200 mg/dL in a nonstressed, ambulatory subject supports the diagnosis of Diabetes Mellitus. [facility] Glucose Poct Glucometerson 0 01-09-2025 Commemt1 Glu2: Cleaned Meter Normal [facility] Comment on above: Result Comment: PERF ORMED BY: [facility] [address] [place] [address] PATHOLOGIST AMBULATORY NURSE STEVE CROWLEY M.D. Performed By: #### G LUVICENTA #### Point of Care testing , Bhavesh 01-09-2025 L ------ Specimen: [id number] Received: 01/10/25 Status: JOSEPH Purcell Num: [id number] Spec Type: Surgical Subm Dr: Dannie Greer MD Tissues: A Debridement-Skin/Other Than Skin (PRODUCTS OF DEBRIDEMENT) Procedures: HE, Gross/Micro L3 Age/ Patient Sex Location Account Attending Physician Gianfranco Leblanc 74/M [place] [id number] Dannie Greer MD SPEC NUM: [id number] RECD: 01/10/25 STATUS: JOSEPH PURCELL NUM: [id number] GREG: 01/09/[address] [facility] [address]: Dannie Greer MD ENTERED: 01/10/[address] [facility] [address]: LILY TYPE: Surgical DEPT: S ENTERED BY: [id number] RECV BY: [id number] ORDERED: HE, Gross/Micro L3 ORDERED: HE, Gross/Micro L3 Pathological Diagnosis Skin, back, debridement: [...] to purple-green, dull and indurated cut surfaces. Metal Gauge Maker sections are submitted in a single cassette. (1, , [id number]) JG Microscopic Description Microscopic examination is performed Specimen: [id number] Received: 01/10/25 Status: JOSEPH Purcell Num: [id number] Spec Type: Surgical Subm Dr: Dannie Greer MD Tissues: A Debridement-Skin/Other Than Skin (PRODUCTS OF DEBRIDEMENT) Procedures: EN, Gross/Micro L3 Patient: LilyShari castillos [id number] (Continued) Specimen: [id number] Received: 01/10/25 (Continued) Signed (signature on file) Charlie Benoit MD 01/11/25 1258 Specimen: [id number] Received: 01/10/25 Status: JOSEPH Purcell Num: [id number] Spec Type: Surgical Subm Dr: Dannie Greer MD Tissues: A Debridement-Skin/Other Than Skin (PRODUCTS OF DEBRIDEMENT) Procedures: EN, Freddy/Ishmael L3 Patient: Shari Leblancs [id number] (Continued) Specimen: [id number] Received: 01/10/25 (Continued) CPT Codes 49886 Specimen: [id number] Received: 01/10/25 Status: JOSEPH Purcell Num: [id number] Spec Type: Surgical Subm Dr: Dannie Greer MD Tissues: A Debridement-Skin/Other Than Skin (PRODUCTS OF DEBRIDEMENT) Procedures: HE, Gross/Micro L3 Patient: Gianfranco Leblanc [id number] (Continued) Signed (signature on file) Charlie Benoit MD 01/11/25 9229 Normal [facility] No Panel InformationOrdered By: Dannie Greer on 01-09-2025 Bedside Glucose Comment Glu2: cleaned meter [facility] 36on 12-19-2024 36 Phone call from Arya , patient states he is not taking the Atenolol or the Potassium. Normal [facility] Telephoneon 12-19-2024 Telephone [id number] Pan Leblanc 1950 M Date Provider Department Center 12/19/2024 [id number] GAXIOLA [facility] Valentina [facility] Family History Problem Relation Age of Onset Coronary artery disease Father Stroke Father Family Status - Relation Status Age at Mother Father Normal [facility] Office Visiton 12-17-2024 Follow-up visit [id number] Pan Leblanc 1950 M Date Provider Department Center 12/17/2024 ISIZARAAYDEN SHARRON Lepe Family History Problem Relation Age of Onset Coronary artery disease Father Stroke Father Family Status - Relation Status Age at Mother Father Level of Service:05531 [place] OFFICE/OUTPATIENT ESTABLISHED MOD MDM 30 MIN [facility] Office Visiton 11-02-2024 Follow-up visit [id number] Pan Leblanc 1950 M Date Provider Department Center 11/02/2024 BRANDON ALEXANDER Family History Problem Relation Age of Onset Coronary artery disease Father Stroke Father Family Status - Relation Status Age at Father Level of Service:26965 [place] OFFICE/OUTPATIENT ESTABLISHED LOW MDM 20 MIN [facility] 36on 10-19-2024 36 Brandon Brumfield CNP [...] The patient does not have an established charge rn. Given the severity of hyponatremia and the potential for further decline, which may lead to neurological complications, a referral to nephrology is warranted for further assessment and long-term electrolyte management. I will continue to coordinate care and adjust management based on the results of this workup. Normal [facility] Orders Onlyon 10-19-2024 Orders Only [id number] Pan Leblanc 1950 M Date Provider Department Center 10/19/2024 BRANDON ALEXANDER Family History Problem Relation Age of Onset Coronary artery disease Father Stroke Father Family Status - Relation Status Age at Father Normal [facility] Office Visiton 09-19-2024 Follow-up visit [id number] Pan Leblanc 1950 M Date Provider Department Center 09/19/2024 [id number] BRANDON JARAD Lepe Family History Problem Relation Age of Onset Coronary artery disease Father Stroke Father Family Status - Relation Status Age at Father Level of Service:48392 [place] OFFICE/OUTPATIENT ESTABLISHED MOD MDM 30 MIN [facility] CNPCaprice 05-31-2024 CNPN Telephone (UROLLN) -- GIANFRANCO LEBLANC ([id number]) 1950 M Date Time Provider Department 05/31/24 [...] 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 Pt explained his Urology provider, Dr Barroso at [facility], scheduled him an MRI and [...] Encounter Status:Closed by [facility] SIDDH[facility] Telephone (ABDULKADIR) -- GIANFRANCO LEBLANC ([id number]) 1950 M Date Time Provider Department 05/25/24 ALE NORIEGA During your visit today, we recorded the following information about you: Ale Noriega MD 05/25/2024 7:18 AM Signed Please notify patient his PSA is very high and he is at high risk of having prostate cancer. he needs to schedule his prostate biopsy unless he had it done else where PSA from [facility] on 05-18-24 = 16.17 (normal values 0-4) Can be done in office under local or in ASC under [facility] MD Sarthak Pham Nicole, LPN 05/25/2024 9:05 AM Signed Call placed to patient in regards to message below. LV for patient to return call back to [phone], in regards to his recent lab results and orders on how Dr. Noriega would like to proceed. Niya De León LPN 05/30/2024 9:07 AM Signed Call placed to patient in regards to message below. LVMM for patient to return call to [phone] in regards to lab results and how [...] Status:Closed by ALE NORIEGA on 05/25/24 Normal [facility] Office Visiton 02-09-2024 Follow-up visit [id number] Pan Leblanc 1950 M Date Provider Department Center 02/09/2024 [facility]ILDA OLIVO JAR[facility] Family History Problem Relation Age of Onset Coronary artery disease Father Stroke Father Family Status - Relation Status Age at Father Level of Service:82683 RI OFFICE/OUTPATIENT ESTABLISHED LOW MDM 20 MIN Normal [facility] OCT MACULA CIRRUS OU (BOTH E YES)on 12-27-2023 [facility] Radiology Study observation (narrative) [facility] Km 12-08-2023 HIRON Telephone (UROLLN) -- GIANFRANCO LEBLANC ([id number]) 1950 M Date Time Provider Department 12/08/23 [...] anesthesia or in ASC under MAC ( [place] [facility]) He can come to 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 picker flyer on prostate bx To update [...] Encounter Status:Closed by [facility]LE [facility] GIANFRANCO [id number]) 1950 M Date Time Provider Department 12/08/23 ALE NORIEGA During your visit today, we recorded the following information about you: Ale Noriega MD 12/13/2023 5:41 PM Signed Please call again and update me Please notify patient that his PSA is rising from 9 to 10.6 He needs prostate bx Can be done in office under local anesthesia or in ASC under MAC ( [place] [facility]) 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 Prostate specific Ag [Mass/Vol] 10.58 ng/mL High <2.60 [facility] Comment on above: Order Comment: Speci men Type: BLOOD SPECIMEN Ordering Facility: [facility] Address: [address] [place] [address] Result Comment: Tomas luong PSA test methodology [...] Banuelos M.D., Ph.D., Eliazar Anna M.D., Ester Weber M.P.H., Eliza Cohen Sc.D. Effect of Verification Bias on Screening for Prostate Cancer by Measurement of Prostatic Specific Antigen. N Engl J Med 2003,349:335-42. Performed By: #### 2 [id number] #### [facility] CLIA [id number] [address] [facility] [address] [facility] CNOVon 10-24-2023 CNOV Office Visit (UROLLN ) -- GIANFRANCO LEBLANC ([id number]) 1950 M Date Time Provider Department 10/24/23 2:40 PM ALE NORIEGA During your visit today, we recorded the following information about you: Pulse Blood pressure Weight 79/minute 157/66 97.5 kg Raven Babcock 10/24/2023 3:09 [place] [address] 72 year old male with nuclear sclerotic [...] 2007 Retinal detachment, left eye, repaired in [place], [place] PAST SURGICAL HISTORY OF hernia sx, POST-CATARACT LASER SURGERY Left 06/16/2022 YAG Capsulotomy OS by Dr. Perez [facility] IO LENS PROSTH W/O ECP Left [...] nontender, w/o nodules. Good anal sphincter tone. [facility] SYMPTOMS SCORE. Date 10/24/2023 1. [...] Moderate By (more content not included)... Normal [facility] Patient Letter FTon 2022 Patient Letter [facility] (Inserted Image. Prema ble to display) November 30, 20[place] [address] GIANFRANCO LEBLANC 1950 Dear Gianfranco Leblanc, Executive [...] Jf Walters M.D., F.A.C.S. [facility] [address] [place], [place] [id number] , OPTION #3 SENT REGULAR/CERTIFIED MAIL [facility] Coding Summary.on 10-27-2022 Coding Summary. CD:[id number] Gh0bWw +PGhlYWQ+PX0RWEOjL77yuSIjc M6oO5BWZQnYTewvXFIUMDeKEaU xuyVmQI7cgTAyTYFh IC8+AS0tBCHcTdnkjJZql5N5cS Z7O79jgj2qUJmhlBZ2VYGpQyEn fupsf5knrWg5TPfaDcbhNcXv ROIlxK82HXM1iF48Ci24gWOphK Uhd3jyvEo9NcVbRLYrLKE4mBrx FRwsz3HhWRAjT16azOLpw6M8 OSDmpDgjiUHxTeVhdBI8pN0aHK eqfcuqp8yjxchbWma0it16wDFj w3P9kCF2H3VfynF3VHXqhJKy InclsGLXeQ9qknnbt2csmmjqBf IaYANoIDt4HLx8LAZtdAogIqOu DX83WUJ0QPSyhvXwB6NzKYZi jLsyYbT1o0R4Fe3HD0WLIwwzN9 VNTUFSWTwvdGQ+ME72tv57F4Ll BigyTkf4FEYvKCF9rTP3oU4i POQvYTqrz9S2wDS8B7QfqwQagc 9fc1gkSBRsVLzvE63ciNOko4Y2 PKNgsHB1DTWrmVklMeOftJ70 Oyc+ZIRwkTktd8JqKjtcx8vmq3 gjlVy5DegjMUAbhtBpoWbjAZV8 m0KhWc9nYCFkvYG9oER2sV6o EcPdIlU5KTcdG784VmVupVKwKs ejK59qB0EbkFO+RIEoCtl5AJXl qBypFO8kX6PjABCtbpvsjGHo aWhkSZ1bYKIfecxeOUXgqB6gJB SrS8n3LtLkRiR5JMlnW2LbNKGf jenoWp52tI5aQjUbHfA1UVdv A1PxcdJ1NINnaRDvXKufAMR3X7 6ki0G1ROBaBEAnALJ4rGM0gE6h bGlnbjogbGVmdDsgdmVydGlj BKgbKXclU036ZTCvfKqpQkLyCL luZyBEYXRlOiAgMDMvMDgvMjAy MzwvdGQ+PEAfYKQ4mDirEKUc pNOzVQpqQs0dbLqsrXgfVA3tJQ TggofqAMSlmZ4aYSHroDHhuTmm XE7pFYHbkfprb752XrDdLVX9 ABTxzOBdH1BzlE5lTwBiPOSkNC MoS8BclJKnRVvoB134MFpsGtY4 GKDxviVaJ8YtDDZubAbnOdI8 a7K0Pq0Ny8CzxdwzV1RyeGYoSk GtJpybNJo9F7JsSqmfeTS+PC90 KEHgMA27PXs3BLD1wAnoGKwv MSObW5XyrY1qByJwHULpUZJxKx c+PHRhYmxlIHdpZHRoPScxMDAl EgZftUjjUB3iSd3vKZEdENRc wTdwlZQpVoSzr9usZAIzXZbxZM 7zrSpeH5WwrOT6YIVjw1n0Lc35 Z88hI5YmhPH+FEMieFZ1cYF9 tK9cEpDzDeQ6CXptX786ZqIhmR XoJhmqz0tjw4cgpAh3BeR9ZMJb zwZaaZqaOGI2i9EzLr35I39s IHdpZHRoPSIxNSUiIHZhbGlnbj 0epF5uBw7+IBTmhFT9nDU0dB3o RtUkAjQ5EZliT492XhWqeSEx Nbrgy8ivn4pfoFc0GfDdDYPoxu UuvPewRXC9g5OdDr91Y4MyoAmd r7BgYmn7ag09iRFft9Y2aMK6 I8DbXDVxqsptpEOsvDeaIW8sWD HcjjwlEDZwtM6rHWRdM7a8DbBb NsN6ZLyuJ4PwwlJ9SPZroSTq ACHqkITTbT5icuhlf0ontkwgNt HnSZZwDBp4VIr7NEByhDjzNsIt ZCQ5BdO4DVX2wDQshM3cbQjt jrmtdS2zLjm+KMZ6yKOhxWCCGW 1lOjwvdGQ+SKAbJTV2gOapXTjl JOJakA5iFAKnO9i7LbBiFnN8 YSalG6FhvjL8ANRuzEYhHGNorB IVeX2moteea0gcwewdDgAyUOVr LYx1SNb5UJZtwRedKsOvOZJ3 NnE5EDQ8aYWhfE6vhQhqoreflD 9wOyc+EgcnrGdkMUX4REl3Z1Id Mbt1UKRtrFjpLO8siMLdXEiz Cb3rzGsosZiqHK7uCCOewyycg0 07TkQzm5mnVOFvxYPfVEnwKNO3 Y32dv6O4HAMeITUtJAK1jZD2 iN0rgMcxfyrqvTUycEmqlsGcyF wpYHaiCMyrJ371FRPicUrnIkIy PKc9Z3WrPgn9XAEhhNogTT6d zIStJXauOm3fiDwimMrhBI6aTP Dxeoubk057NfTwm7udOJLojDQv SNbySVF4R42lq8G6FOKuZKLf PSW2tBQ0hX9quIlkbfnwaMMuoP vlokRpgIhfHEkhOCexQ910PRTe aRvgGqTyrKk7S8FyDaq8GJDc tEyfPH7xcYIsQQfqXk4jyGimtZ fqUP0vICHrbukvt358XvYek9mw NJCxiAYpOIdoKCV8Z76kp4P8 NVErOQMvCWQ5gOG2nZ6njPsbpx ogbGVmdDsgdmVydGljYWwtYWxp E805VGCtlGchGiSuzWfflmLn OWlyUJk0N0ZoVkedkVF+PC90YW EvYG82kRDujGKvj8ewbQo3IeCk GDUiNDB1nLdsGJddp3EpQHEg Q73ykQObz7S3CKFstJxedUOySv RzoFH6zS5qXTdqrdaon7sezgkd Gvnqn0eftq84gC62K31iAGnx TFVoIGEwTSVgESFsnKyhyr0hbF 9wIi8+QZUxsJN9fSG8sL5qUWFd OgB9GRjuI434CyTrpOZwEmja e6sfg2fnxZk0FpH3UIFqmpXbpT nzTHW1j8OkQa79I90lIAgdCYGf SEYaXJWcUJOtrGwwkz0ghZ6e Ii8+PSRqlYY0zNN6cM2zLySgAv N5MCniD605HbZkoTLzBabmX33v C1GtqKR+RQIrXfp8WVDzpPsz OY4kmSUiSWvoPl7cGTT1KjJoZp RlICncP8UeNUZvkbzxxrlmeVT4 WFWpDIXlgQ85Kx1fzCdlMBBs sVAEiP1dmonyw0upujpgNcYiSM PcOOq5QCi6PCPwtTpePxFwVCW8 WyE4JOZ7nSFabM8xdIkoqspb oK6fC2SxUXQhuqccLr52gY1qRf YeSxR8NZatMte+UFVMTEFOTywg QkhQT4yIEphbpVB+PHRkIHN0 rAspMTdwOHJdsL1cWWIzH8y2Kv TeAsZ7IWpzY3VrNSWjqwvwRf69 iA1jJyVnVoJ4FDzjF7EbxrU4 CUCxcUMcQEwjQUU3O31lh2D1OH LmNCGfWME4cNF0rH3bkRigqdxl bGVmdDsgdmVydGljYWwtYWxp V037RYCmtPgeQqU0FeZ0UmT4XX I0B1QlNcr9CFUcvYohTA9ntTDa LWkiBr7kgOjxhEndHW6pEWPo dyflJHWjrN7tUYRyiICdfShsPA 3nTOFjoctkc502NtKjXSG8SQPc wXPwD1SmxE1rWaUzPXXpLYOs W1KlcPUcAZxoB016AUdoUpW0PN MhiyAfC5NpFCUkeXcxIqK4x8H9 Dn27BfXGUECahcnkkPC+PHRk QEN7uSsaHVcwLWXplJ2jKZZbH7 z7RtJrNpP9XXqjE6QsZSFycint Uq03tJ0iVvFxYrG7PPggT6Hl ogD7VIDpyMXhSLkkBVE6X87zm5 J4WJIcMBLeYKJ8bNL6fC5xdThd bjogbGVmdDsgdmVydGljYWwt YKalZ186XKSepYklSy5yaXE6H6 PmLdh0NGGmtRydJR0ucPZoKOnq Ss3qhUmfsEvyME2tBKUuavwa PVYqwC0nBGSebEEhzRtjTX4sLM Mzrkkzh801AhQoAFM4KNTizNFg D4VruO3lKvVqWPZsPBIaF6Rk qERdDPwvD487PRdcDzT8RWEpnx UhR0UlXDNaiJfqCvC1o6H9Em4H DZDhLPOobHUbIxZ7C8ZiTzfw dHI+HD73FVKhRG61jATkjEDpg5 hsnGu3VzXxBNHwMBP9eTzcXPzn h3OvZZOuV29zrVQen9P7YHOt xJqmcVVfWhYuaYD2uM6pJKgvpe sfi5kbgqrgLejmp5jvtp09yU88 A55fGGixJHGiIOOtWZNoHSGe rAyuud1aeX4aVp5+FXJkmTE1iY M8uG8rLrAiYqS1CRqnY459ZcCl iUXxIysse2ild1fwcMg7ItLe JQSguwAebXgkRNQ6y4ChCb44B5 9sIHdpZHRoPSIyMCUiIHZhbGln dy6iaV1uIm7+MU4iw4qtra84 aX26sAV+ROVaGRU8uWpoYDeeRR LjvD4uGFatLyB3PLIfPmKbwG49 eXLxRCbaVw8djVdotAfbLW4x KHVucbhpf862AgIpe3cnVVEauA PdBBffEJV6F86cy7K3LMRaIMDk ZYG9iRY9vZ7emDqfqxtstYJr lSamltFmlIqtQKjjULxpS483WX AqyYedBdGisHFrK5qspmNNUY9f OjwvdGQ+XAXsWIA8oLelWLbi MMNezK3xMOCxO3d3LtDgJwT6VB pcP4LknvB4ANWmkMAcOXOwsJNA oZ6sdjebc3kzzydaDuWdPOBy ZVg1JZf2PZVovHlzMoQmJKW3Si J5UFI0cYSoyL1guAiftnqhoI5y Oyc+RklOOjwvdGQ+PHRkIHN0 zPjgHKmkQGFxrU2zRUFcD0d0Rl CcEmL1AWiqJ9TldaD5KUGtaIUi AKRdiYGPrG2wwqoxu6kralio WeLkXCMnMQi6KNm8YJRbzVrdOu OnAJB4FbA2PBO6lENsdM4taJxz pwitlY8jPdz+TVJOOjwvdGQ+ YSUsDOJ1nMhdEKsxGWZxlJ4wGA MaG5p1HpCuIaL9AWxfR1AvpaZ1 EUHdxVHwYGVxdVGSyP5tcoon m4fxzelgSiEfVJGvGIe3EXe5QP KnhMdaDrRlFZI9YyZ3CDH0uFPe bD1eiEwynjcilA5yEny+UGF5 GXD4RM09EW40Y0JdBmeibFAzeO U+PHRhYmxlIHdpZHRoPScxMDAl OuTohImwRC5kPf1aFCSuTKGc bGxh (more content not included)... Normal [facility] Lab Reportson 10-27-2022 Lab Reports [id number]#1.00CD:127 Normal [facility] Ambulatory Visit Summaryon 0 10-15-2022 Ambulatory Visit Summary GIANFRANCO LEBLANC :1950 Visit Date:10/15/2022 Ambulatory Visit Instructions Your Diagnosis Elevated PSA Benign prostatic hyperplasia (BPH) with post-void dribbling Tests Performed Urnls Dip Stick Auto w/o Microscopy POC 39111 Your Care Team Attending Physician - SELENA [...] with SELENA LEONG, STEFANI Seo When: Where: [address] [place], [place] [id number]- Medications What When Instructions Unchanged amlodipine (amLODIPine [...] Urnls Dip Stick Auto w/o Microscopy POC 42374 (10/15/2022) Bilirubin Urine Dipstick - Negative Blood Urine Dipstick - Negative Glucose Urine Dipstick - Negative Ketones Urine Dipstick - Negative Leukocytes Urine Dipstick - Negative Nitrite Urine Dipstick - Negative Protein Urine Dipstick - Negative Specific [place] Urine Dipstick - 1.010 Urine Appearance Urine [...] of these risk factors: ? Being of -[place] descent. ? Having a family history of prostate cancer. ? If you are age 55?69, talk with your health care provider about (more content not included)... Normal [facility] Patient Educationon 10-15-19 Patient Education Oncology [...] of these risk factors: ? Being of -[place] descent. ? Having a family history of [...] Are older than age 55. ? Are -[place]. ? Have a father, brother, or uncle [...] Contact Information SELENA LEONG, Jf Reis, URL [address] [id number]- Additional Instructions: PSA today - await results [...] Father. Immunizations Vaccine Date Status Comments SARSCoV2 mRNA(bjpjnzzsl-zkat-tdkloy ) vac 03/12/2022 Recorded 2022-06-28: TPV70 SARS-CoV-2 [...] Dipstick: Negativ (more content not included)... Normal [facility] Comment on above: Result Comment: Elec tronically Signed By: Jf WALTERS MD\.br\Date and Time Signed: 10/15/22 11:23 EST\.br\Electronically Co-Signed By: Dori Wynne\.br\Date and Time Co-Signed: 10/15/22 11:19 EST\.br\Electronically Co-Signed By: Dori Wynne\.br\Date and Time Co-Signed: 10/15/22 11:21 EST Creatinine (Bld) [Mass/Vol]O rdered By: Jf Walters on 07-14-2022 Creatinine [Mass/Vol] 0.8 mg/dL 0.6-1.3 [facility] Comment on above: ER/ESD physician is notified/shown all ISTAT results.Critical values may be confirmed by laboratory testing ifdeemed necessary by ER attending doctor. No Panel InformationOrdered By: Jf Walters on 07-14-2022 POC Estimated GFR > 60 [facility] Comment on above: GFR estimated refere nce range: According to KDOQI guidelines, <60 ml/min/1.73m2 is sufficient to diagnose a patient with chronic kidney disease. POC Estimated GFR Non- Amer > 60 [facility] Pre-Certification Formon Pre-Certification Form [id number]#1.00CD:127 Normal [facility] Lab Reportson 07-05-2022 Lab Reports [id number]#1.00CD:127 Normal [facility] Physician Referralon 022 Physician Referral [id number]#1.00CD:127 Normal [facility] Ambulatory Visit Summaryon 08-28-2021 Ambulatory Visit [...] Where: [facility] [address] , [place] [phone] Medications What When Instructions Unchanged amlodipine (amLODIPine [...] prostate gland (more content not included)... Normal [facility] Historical Records Officeon 06-28-2022 Historical Records Office [id number]#1.00CD:127 Normal [facility] Patient Educationon 06-28-20 Patient Education [...] Follow these instructions at home: ? Take iusc-kfe-eznunsr and prescription medicines only as told by [...] You d (more content not included)... Normal [facility] PSA, FREE AND TOTAL RATIOon 05-21-2022 % Free PSA 7.1 % Normal [facility] Comment on above: Result Comment: The [...] men. Performed By: #### P SAFREE #### [facility] [address] [place] [address] Dr. Zaira Benoit Prostate specific Ag [Mass/Vol] 6.8 ng/mL Critically high 0.0-4.0 [facility] Comment on above: Result Comment: Bryant SEXTON methodology. . According to the [place] [employer], Serum PSA should decrease and [...] disease. Performed By: #### P SAFREE #### [facility] [address] [place] [address] Dr. Zaira Benoit PSA, Free 0.48 ng/mL Normal N/A [facility] Comment on above: Result Comment: Bryant SEXTON methodology. Performed By: #### P SAFREE #### [facility] [address] [place] [address] Dr. Zaira Benoit INSULINon 05-13-2022 Insulin 7.8 uIU/mL Normal 2.6-24.9 [facility] Comment on above: Performed By: #### I NSULIN #### [facility] [address] [place] [address] Dr. Zaira Benoit CBC AUTO DIFFon 05-12-2022 BASO # 0.1 103/ul Normal 0.0-0.1 [facility] Comment on above: Performed By: #### C BC #### [facility] [address] [place] [address] Dr. Zaira Benoit Basophils/100 WBC (Bld) 0.9 % Normal 0.2-2.0 [facility] Comment on above: Performed By: #### C BC #### [facility] [address] [place] [address] Dr. Zaira Benoit EO # 0.2 103/ul Normal 0.0-0.7 [facility] Comment on above: Performed By: #### C BC #### [facility] [address] [place] [address] Dr. Zaira Benoit Eosinophils/100 WBC (Bld) 2.1 % Normal 0.9-7.0 [facility] Comment on above: Performed By: #### C BC #### [facility] [address] [place] [address] Dr. Zaira Benoit Erythrocyte distribution width (RBC) [Ratio] 13.2 % Normal 11.0-15.0 [facility] Comment on above: Performed By: #### C BC #### [facility] [address] [place] [address] Dr. Zaira Benoit Hematocrit (Bld) [Volume fraction] 46.6 % Normal 42.0-54.0 [facility] Comment on above: Performed By: #### C BC #### [facility] [address] [place] [address] Dr. Zaira Benoit Hemoglobin (Bld) [Mass/Vol] 15.5 g/dL Normal 14.0-18.0 [facility] Comment on above: Performed By: #### C BC #### [facility] [address] [place] [address] Dr. Zaira Benoit IG # 0.02 10e3/ul Normal 0.00-0.03 [facility] Comment on above: Performed By: #### C BC #### [facility] [address] [place] [address] Dr. Zaira Benoit IG % 0.3 % Normal 0.0-0.5 [facility] Comment on above: Performed By: #### C BC #### [facility] [address] [place] [address] Dr. Zaira Benoit LYMPH # 2.6 103/ul Normal 1.2-3.8 [facility] Comment on above: Performed By: #### C BC #### [facility] [address] [place] [address] Dr. Zaira Benoit Lymphocytes/100 WBC (Bld) 36.9 % Normal 20.5-60.0 [facility] Comment on above: Performed By: #### C BC #### [facility] [address] [place] [address] Dr. Zaira Benoit MANUAL DIFF REQ NO Normal [facility] Comment on above: Performed By: #### C BC #### [facility] [address] [place] [address] Dr. Zaira Benoit MCH (RBC) [Entitic mass] 33.2 pg Normal 25.9-34.0 [facility] Comment on above: Performed By: #### C BC #### [facility] [address] [address] [address] Zaira Benoit MCHC (RBC) [Mass/Vol] 33.3 g/dL Normal 29.9-35.2 [facility] Comment on above: Performed By: #### C BC #### [facility] [address] [address] [address] Zaira Benoit MCV (RBC) [Entitic vol] 99.8 fL Critically high 80.0-94.0 [facility] Comment on above: Performed By: #### C BC #### [facility] [address] [place] [address] Dr. Zaira Benoit MONO # 0.6 103/ul Normal 0.3-0.8 [facility] Comment on above: Performed By: #### C BC #### [facility] [address] [place] [address] Dr. Zaira Benoit Monocytes/100 WBC (Bld) 9.1 % Normal 1.7-12.0 [facility] Comment on above: Performed By: #### C BC #### [facility] [address] [place] [address] Dr. Zaira Benoit NEUT # 3.6 103/ul Normal 1.4-6.5 [facility] Comment on above: Performed By: #### C BC #### [facility] [address] [place] [address] Dr. Zaira Benoit Neutrophils/100 WBC (Bld) 50.7 % Normal 43.0-75.0 [facility] Comment on above: Performed By: #### C BC #### [facility] [address] [place] [address] Dr. Zaira Benoit Platelet mean volume (Bld) [Entitic vol] 9.3 fL Critically low 9.5-13.5 [facility] Comment on above: Performed By: #### C BC #### [facility] [address] [place] [address] Dr. Zaira Benoit PLT 191 103/ul Normal 150-450 [facility] Comment on above: Performed By: #### C BC #### [facility] [address] [address] [address] Zaira Benoit RBC 4.67 106/ul Critically low 4.70-6.10 [facility] Comment on above: Performed By: #### C BC #### [facility] [address] [address] [address] Zaira Benoit WBC 7.0 103/ul Normal 4.0-11.0 [facility] Comment on above: Performed By: #### C BC #### [facility] [address] [address] [address] Zaira Benoit GLYCOHEMOGLOBIN A1Con 2021 ADA RECOMMENDATION SEE BELOW Normal [facility] Comment on above: Result Comment: ADA RECOMMENDED LIMIT 4.0 - 6.0 ADA THERAPEUTIC TARGET < 7.0 ACTION SUGGESTED > 7.0 Performed By: #### A 1C #### [facility] [address] [address] [address] Zaira Benoit Glucose [Mass/Vol] 151 mg/dL Normal [facility] Comment on above: Performed By: #### A 1C #### [facility] [address] [place] [address] Dr. Zaira Benoit HbA1c (Bld) [Mass fraction] 6.9 % Critically high 4.5-6.2 [facility] Comment on above: Performed By: #### A 1C #### [facility] [address] [place] [address] Dr. Zaira Benoit LIPID PROFILEon 05-12-2022 CHOL-HDL RATIO NORM SEE BELOW Normal [facility] Comment on above: Result Comment: 3.3 - 4.4 LOW RISK 4.4 - 7.1 AVERAGE RISK 7.1 - 11.0 MODERATE RISK >11.0 HIGH RISK Performed By: #### L IPID, URIC, CMP #### [facility] [address] [address] [address] Zaira Benoit Cholesterol [Mass/Vol] 132 mg/dL Normal <=200 [facility] Comment on above: Performed By: #### L IPID, URIC, CMP #### [facility] [address] [address] [address] Zaira Benoit Cholesterol in HDL [Mass/Vol] 53 mg/dL Normal 40-60 [facility] Comment on above: Performed By: #### L IPID, URIC, CMP #### [facility] [address] [address] [address] Zaira Benoit Cholesterol in LDL [Mass/Vol] 59.6 mg/dL Normal [facility] Comment on above: Performed By: #### L IPID, URIC, CMP #### [facility] [address] [address] [address] Zaira Benoit Cholesterol.total/Ch olesterol in HDL [Mass ratio] 2.5 {ratio} Normal [facility] Comment on above: Performed By: #### L IPID, URIC, CMP #### [facility] [address] [address] [address] Zaira Benoit HDL NORMAL > or = 60 mg/dl - LO W CARDIOVASCULAR RISK <40 mg/dl - HIGH CARDIOVASCULAR RISK Normal [facility] Comment on above: Performed By: #### L IPID, URIC, CMP #### [facility] [address] [address] [address] Zaira Benoit LDL CALC NORMAL SEE BELOW Normal [facility] Comment on above: Result Comment: <100 mg/dl OPTIMAL 100 - 129 mg/dl NEAR OR ABOVE OPTIMAL 130 - 159 mg/dl BORDERLINE HIGH 160 - 189 mg/dl HIGH >190 mg/dl VERY HIGH Performed By: #### L IPID, URIC, CMP #### [facility] [address] [address] [address] Zaira Benoit Triglyceride [Mass/Vol] 97 mg/dL Normal <=150 [facility] Comment on above: Performed By: #### L IPID, URIC, CMP #### [facility] [address] [address] [address] Zaira Benoit VLDL CALC 19.4 mg/dL Normal [facility] Comment on above: Performed By: #### L IPID, URIC, CMP #### [facility] [address] [address] [address] Zaira Benoit PROF 14(COMP METB)on 022 Albumin [Mass/Vol] 3.9 g/dL Normal 3.4-5.0 [facility] Comment on above: Performed By: #### L IPID, URIC, CMP #### [facility] [address] [address] [address] Zaira Benoit Albumin/Globulin [Mass ratio] 1.1 {ratio} Normal [facility] Comment on above: Performed By: #### L IPID, URIC, CMP #### [facility] [address] [address] [address] Zaira Benoit ALP [Catalytic activity/Vol] 92 U/L Normal 46-116 [facility] Comment on above: Performed By: #### L IPID, URIC, CMP #### [facility] [address] [address] [address] Zaira Benoit ALT [Catalytic activity/Vol] 31 U/L Normal 16-63 [facility] Comment on above: Performed By: #### L IPID, URIC, CMP #### [facility] [address] [address] [address] Zaira Benoit Anion gap [Moles/Vol] 12.2 mmol/L Normal [facility] Comment on above: Performed By: #### L IPID, URIC, CMP #### [facility] [address] [address] [address] Zaira Benoit AST [Catalytic activity/Vol] 20 U/L Normal 15-37 [facility] Comment on above: Performed By: #### L IPID, URIC, CMP #### [facility] [address] [address] [address] Zaira Benoit Bilirubin [Mass/Vol] 0.4 mg/dL Normal 0.2-1.0 [facility] Comment on above: Performed By: #### L IPID, URIC, CMP #### [facility] [address] [address] [address] Zaira Benoit Calcium [Mass/Vol] 8.8 mg/dL Normal 8.5-10.1 [facility] Comment on above: Performed By: #### L IPID, URIC, CMP #### [facility] [address] [address] [address] Zaira Benoit Chloride [Moles/Vol] 101 mmol/L Normal 98-107 [facility] Comment on above: Performed By: #### L IPID, URIC, CMP #### [facility] [address] [place] [address] Dr. Zaira Benoit CO2 [Moles/Vol] 29.3 mmol/L Normal 21.0-32.0 [facility] Comment on above: Performed By: #### L IPID, URIC, CMP #### [facility] [address] [place] [address] Dr. Zaira Benoit Creatinine [Mass/Vol] 0.88 mg/dL Normal 0.70-1.30 [facility] Comment on above: Performed By: #### L IPID, URIC, CMP #### [facility] [address] [place] [address] Dr. Zaira Benoit EGFR-AF YEMENI >60 Normal >=60 [facility] Comment on above: Performed By: #### L IPID, URIC, CMP #### [facility] [address] [place] [address] Dr. Zaira Benoit EGFR-NON AF YEMENI >60 Normal >=60 [facility] [facility] Comment on above: Performed By: #### L IPID, URIC, CMP #### [facility] [address] [place] [address] Dr. Zaira Benoit Globulin (S) [Mass/Vol] 3.6 g/dL Normal [facility] Comment on above: Performed By: #### L IPID, URIC, CMP #### [facility] [address] [place] [address] Dr. Zaira Benoit Glucose [Mass/Vol] 128 mg/dL Critically high 74-106 [facility] Comment on above: Performed By: #### L IPID, URIC, CMP #### [facility] [address] [place] [address] Dr. Zaira Benoit Potassium [Moles/Vol] 4.5 mmol/L Normal 3.5-5.1 [facility] Comment on above: Performed By: #### L IPID, URIC, CMP #### [facility] [address] [place] [address] Dr. Zaira Benoit Protein [Mass/Vol] 7.5 g/dL Normal 6.4-8.2 [facility] Comment on above: Performed By: #### L IPID, URIC, CMP #### [facility] [address] [address] [address] Zaira Benoit Sodium [Moles/Vol] 138 mmol/L Normal 136-145 [facility] Comment on above: Performed By: #### L IPID, URIC, CMP #### [facility] [address] [place] [address] Dr. Zaira Benoit Urea nitrogen [Mass/Vol] 4.0 mg/dL Critically low 7.0-18.0 [facility] Comment on above: Performed By: #### L IPID, URIC, CMP #### [facility] [address] [place] [address] Dr. Zaira Benoit Urea nitrogen/Creatinine [Mass ratio] 4.5 mg/mg Normal [facility] Comment on above: Performed By: #### L IPID, URIC, CMP #### [facility] [address] [place] [address] Dr. Zaira Benoit URIC ACID SERUMon 05-12-2022 Urate [Mass/Vol] 7.5 mg/dL Critically high 3.5-7.2 [facility] Comment on above: Performed By: #### L IPID, URIC, CMP #### [facility] [address] [place] [address] Dr. Zaira Benoit No Panel Information [facility] Vital Signs Date Time Vital Sign Value Performing Clinician Facility 04-09-2025 15:39-0400 Body height 175.3 cm Dannie Gambino MD Work Phone: [facility] 04-09-2025 15:39-0400 Body mass index (BMI) [Ratio] 31.31 kg/m2 Dannie Gambino MD Work Phone: [facility] 04-09-2025 15:39-0400 Body weight 96.16 kg Dannie Gambino MD Work Phone: [facility] 03-14-2025 15:34-0400 Body height 172.72 cm Daina Marnie DRAW FRAME [employer]NER-C Work Phone: [facility] 03-14-2025 15:34-0400 Body mass index (BMI) [Ratio] 32.1 kg/m2 Daina Marnie [employer]NER[employer]C Work Phone: [facility] 03-14-2025 15:34-0400 Body temperature 97.4 [degF] Daina Marnie [employer]RAW [employer]NER[employer]C Work Phone: [facility] 03-14-2025 15:34-0400 Body weight 95.76 kg Daina Marnie [employer]RAW [employer]NER[employer]C Work Phone: [facility] 03-14-2025 15:34-0400 Diastolic blood pressure 77 mm[Hg] Daina Marnie [employer]C Work Phone: [facility] 03-14-2025 15:34-0400 Heart rate 95 /min Daina Marnie [employer]NER[employer]C Work Phone: [facility] 03-14-2025 15:34-0400 Respiratory rate 20 /min Daina Marnie [employer]NER[employer]C Work Phone: [facility] 03-14-2025 15:34-0400 SaO2% (BldA) [Mass fraction] 95 % Daina Marnie [employer]NER[employer]C Work Phone: [facility] 03-14-2025 15:34-0400 Systolic blood pressure 134 mm[Hg] Daina Marnie [employer]RAW [employer]NER[employer]C Work Phone: [facility] 03-11-2025 16:38-0400 Diastolic blood pressure 73 mm[Hg] Daina Marnie [employer]NER[employer]C Work Phone: [facility] 03-11-2025 16:38-0400 Heart rate 86 /min Daina Marnie [employer]NER[employer]C Work Phone: [facility] 03-11-2025 16:38-0400 Respiratory rate 16 /min Daina Marnie [employer]RAW [employer]NER[employer]C Work Phone: [facility] 03-11-2025 16:38-0400 SaO2% (BldA) [Mass fraction] 97 % Daina Marnie [employer]NER-C Work Phone: [facility] 03-11-2025 16:38-0400 Systolic blood pressure 138 mm[Hg] Daina Marnie [employer]RAW [employer]NER-C Work Phone: [facility] 03-11-2025 15:03-0400 Body height 172.72 cm Daina Marnie [employer]NER-C Work Phone: [facility] 03-11-2025 15:03-0400 Body temperature 98.1 [degF] Daina Marnie [employer]RAW [employer]NER-C Work Phone: [facility] 03-11-2025 15:03-0400 Body weight 96.16 kg Daina Johnsonmer [employer]RAW [employer]NER[employer]C Work Phone: [facility] 02-19-2025 15:32-0400 Body height 175.3 cm Dannie Gambino MD Work Phone: [facility] 02-19-2025 15:32-0400 Body mass index (BMI) [Ratio] 31.31 kg/m2 Dannie Gambino MD Work Phone: [facility] 02-19-2025 15:32-0400 Body weight 96.16 kg Dannie Gambino MD Work Phone: [facility] 01-29-2025 14:25-0400 Body height 175.3 cm Dannie Gambino MD Work Phone: [facility] 01-29-2025 14:25-0400 Body mass index (BMI) [Ratio] 31.31 kg/m2 Dannie Gambino MD Work Phone: [facility] 01-29-2025 14:25-0400 Body weight 96.16 kg Dannie Gambino MD Work Phone: [facility] 01-17-2025 16:04-0400 Body height 175.3 cm Juan Manuel Crow DPM Work Phone: [facility] 01-17-2025 16:04-0400 Body mass index (BMI) [Ratio] 31.31 kg/m2 Juan Manuel Crow DPM Work Phone: [facility] 01-17-2025 16:04-0400 Body weight 96.16 kg Juan Manuel Crow DPM Work Phone: [facility] 01-17-2025 16:04-0400 Respiratory rate 18 /min Juan Manuel Crow DPM Work Phone: [facility] 01-09-2025 17:10-0400 Diastolic blood pressure 81 mm[Hg] Dainaruth Johnsonmer [employer]RAW [employer]NER[employer]C Work Phone: [facility] 01-09-2025 17:10-0400 Heart rate 82 /min Daina Marnie [employer]NER[employer]C Work Phone: [facility] 01-09-2025 17:10-0400 Respiratory rate 18 /min Daina Marnie [employer]NER[employer]C Work Phone: [facility] 01-09-2025 17:10-0400 SaO2% (BldA) [Mass fraction] 96 % Daina Marnie [employer]NER[employer]C Work Phone: [facility] 01-09-2025 17:10-0400 Systolic blood pressure 133 mm[Hg] Daina Marnie [employer]NER[employer]C Work Phone: [facility] 01-09-2025 15:20-0400 Body height 175.26 cm Daina Marnie [employer]NER[employer]C Work Phone: [facility] 01-09-2025 15:20-0400 Body temperature 97.5 [degF] Dainaruth Johnsonmer [employer]NER-C Work Phone: [facility] 01-09-2025 15:20-0400 Body weight 96.16 kg Dainaruth Johnsonmer DRAW [employer]NER-C Work Phone: [facility] 01-08-2025 15:20-0400 Body height 175.3 cm Dannie Gambino MD Work Phone: [facility] 01-08-2025 15:20-0400 Body mass index (BMI) [Ratio] 31.31 kg/m2 Dannie Gambino MD Work Phone: [facility] 01-08-2025 15:20-0400 Body weight 96.16 kg Dannie Gambino MD Work Phone: [facility] 01-08-2025 15:20-0400 Diastolic blood pressure 76 mm[Hg] Dannie Gambino MD Work Phone: [facility] 01-08-2025 15:20-0400 Systolic blood pressure 124 mm[Hg] Dannie Gambino MD Work Phone: [facility] 10-11-2024 14:24-0500 Body height 175.3 cm Juan Manuel Crow DPM Work Phone: [facility] 10-11-2024 14:24-0500 Body mass index (BMI) [Ratio] 29.53 kg/m2 Juan Manuel Crow DPM Work Phone: [facility] 10-11-2024 14:24-0500 Body weight 90.72 kg Juan Manuel Crow DPM Work Phone: [facility] 10-11-2024 14:24-0500 Respiratory rate 18 /min Juan Manuel Crow DPM Work Phone: [facility] 07-05-2024 13:49-0500 Body height 175.3 cm Juan Manuel Crow DPM Work Phone: [facility] 07-05-2024 13:49-0500 Body mass index (BMI) [Ratio] 29.53 kg/m2 Juan Manuel Crow DPM Work Phone: [facility] 07-05-2024 13:49-0500 Body weight 90.72 kg Juan Manuel Logan DPM Work Phone: [facility] 07-05-2024 13:49-0500 Diastolic blood pressure 79 mm[Hg] Juan Manuel Crow DPM Work Phone: [facility] 07-05-2024 13:49-0500 Heart rate 82 /min Juan Manuel Crow DPM Work Phone: [facility] 07-05-2024 13:49-0500 Systolic blood pressure 131 mm[Hg] Juan Manuel Logan DPM Work Phone: [facility] 10-24-2023 14:53-0500 Body weight 97.52 kg Ale Noriega MD Work Phone: [facility] 10-24-2023 14:53-0500 Diastolic blood pressure 66 mm[Hg] Ale Noriega MD Work Phone: [facility] 10-24-2023 14:53-0500 Heart rate 79 /min Ale Noriega MD Work Phone: [facility] 10-24-2023 14:53-0500 Systolic blood pressure 157 mm[Hg] Ale Noriega MD Work Phone: [facility] 10-15-2022 10:45-0500 Diastolic blood pressure 79 mm[Hg] Jf WALTERS [facility] 10-15-2022 10:45-0500 Heart rate 86 /min Jf WALTERS [facility] 10-15-2022 10:45-0500 Systolic blood pressure 128 mm[Hg] Jf WALTERS [facility] 06-28-2022 13:37-0500 Blood Pressure Location Jf WALTERS [facility] 06-28-2022 13:37-0500 Diastolic blood pressure 89 mm[Hg] Jf WALTERS [facility] 06-28-2022 13:37-0500 Heart rate 74 /min Jf WALTERS [facility] 06-28-2022 13:37-0500 Respiratory rate 16 /min Jf WALTER[facility] 06-28-2022 13:37-0500 Systolic blood pressure 140 mm[Hg] Jf WALTERS [facility] Encounters Encounter Date Encounter Type Care Provider Facility Start: 04-09-2025 End: 04-09-2025 Office outpatient visit 15 minutes Dannie Greer MD Work Phone: [facility] Comment on above: EIC (epidermal inclu scottie cyst) (Primary Dx); Non-healing surgical wound, subsequent encounter Start: 04-09-2025 End: 04-09-2025 ambulatory DANNIE GREER V Not Available Start: 03-26-2025 End: 03-26-2025 Postop follow up visit related to original px Dannie Greer MD Work Phone: [facility] Comment on above: EIC (epidermal inclu scottie cyst) (Primary Dx) Start: 03-26-2025 End: 03-26-2025 ambulatory DANNIE GREER V Not Available Start: 03-14-2025 End: 03-14-2025 ambulatory Daina Judge DRAW FRAME [employer]NER-C Work Phone: [facility] Work Phone: Start: 03-14-2025 End: 03-14-2025 Patient encounter procedure Viv Rick MD -[facility] Work Phone: Start: 03-11-2025 End: 03-11-2025 Admission to same day surgery center Dannie Greer MD [facility] Start: 03-11-2025 End: 03-11-2025 ambulatory Daina Judge DRAW [employer]NER-C Work Phone: [facility] Work Phone: Start: 03-11-2025 End: 03-11-2025 External Result Encounter Dannie Greer MD Work Phone: [facility] External Department Unsolicited Start: 03-11-2025 End: 03-11-2025 External Result Encounter Dannie Gambino MD Work Phone: [facility] External Department Unsolicited Start: 02-19-2025 End: 02-19-2025 Office outpatient visit 15 minutes Dannie Greer MD Work Phone: [facility] Comment on above: EIC (epidermal inclu scottie cyst) (Primary Dx); Wound of back, unspecified laterality, initial encounter Start: 02-19-2025 End: 02-19-2025 ambulatory DANNIE GREER V Not Available Start: 01-29-2025 End: 01-29-2025 Office outpatient visit 15 minutes Dannie Greer MD Work Phone: [facility] Comment on above: EIC (epidermal inclu scottie cyst) (Primary Dx); Wound of back, unspecified laterality, initial encounter Start: 01-29-2025 End: 01-29-2025 ambulatory DANNIE GRERE V Not Available Start: 01-17-2025 End: 01-17-2025 Patient encounter procedure Juan Manuel Crow DPM Work Phone: [facility] Comment on above: Diabetes mellitus du e to underlying condition with diabetic polyneuropathy, unspecified whether care home insulin use ([facility]) (Primary Dx); Pain due to onychomycosis of toenails of both feet; Venous insufficiency; Capsulitis of metatarsophalangeal (MTP) joint of right foot Start: 01-17-2025 End: 01-17-2025 ambulatory JUAN MANUEL CROW Not Available Start: 01-17-2025 End: 01-17-2025 Bamboo flowsheet Juan [...] cified laterality, initial encounter (Primary Dx) Start: 01-15-2025 End: 01-15-2025 ambulatory DANNIE GREER V Not Available Start: 01-09-2025 End: 01-09-2025 Admission to same day surgery center Dannie Greer MD -[facility] Start: 01-09-2025 End: 01-09-2025 ambulatory Dannie Greer Facility:[facility] Start: 01-09-2025 End: 01-09-2025 External Result [...] V Not Available Start: 12-17-2024 [facility] Start: 12-11-2024 End: 12-11-2024 Office outpatient visit 15 minutes Ciaran NARANJO Work Phone: [facility] Comment on above: Epidermal inclusion cyst (Primary Dx); Pain Start: 12-11-2024 End: 12-11-2024 ambulatory CIARAN NORTHEIM Not Available Start: 11-30-2024 End: 11-30-2024 Bamboo flowsheet Ciaran Northeim PA Work Phone: [facility] Start: 11-30-2024 End: 11-30-2024 Bamboo flowsheet [facility] Work Phone: [facility] Start: 11-30-2024 End: 11-30-2024 ambulatory CIARAN CAIN Not Available Start: 11-30-2024 End: 11-30-2024 Office outpatient visit 15 minutes Ciaran Cain PA Work Phone: [facility] Comment on above: EIC (epidermal inclu scottie cyst) (Primary Dx) Start: 11-02-2024 End: 11-02-2024 ambulatory BRANDON [facility] Start: 10-11-2024 End: 10-11-2024 ambulatory JUAN MANUEL CROW Not Available Start: 10-11-2024 End: 10-11-2024 Bamboo flowsheet Juan Manuel Crow DPM Work Phone: [facility] Start: 10-11-2024 End: 10-11-2024 Bamboo flowsheet Juan Manuel Crow DPM Work Phone: [facility] Start: 10-11-2024 End: 10-11-2024 Office outpatient visit 15 minutes JuanM anuel Crow DPM Work Phone: [facility] Comment on above: Capsulitis of metata rsophalangeal (MTP) joint of right foot (Primary Dx); Diabetes mellitus due to underlying condition with diabetic polyneuropathy, unspecified whether manager terminal insulin use ([facility]); Pain due to onychomycosis of toenails of both feet; Venous insufficiency Start: 10-02-2024 End: 10-02-2024 Office outpatient visit 15 minutes Kaia Olguin MD Work Phone: [facility] Comment on above: Seborrheic keratosis (Primary Dx); Lentigines; Other rosacea; History of SCC (squamous cell carcinoma) of skin; Capillary angioma; Epidermal inclusion cyst Start: 10-02-2024 End: 10-02-2024 ambulatory KAIA OLGUIN Not Available Start: 10-02-2024 End: 10-02-2024 Jose Olguin MD Work Phone: [facility] Start: 10-02-2024 End: 10-02-2024 Bamfaisal Olguin MD Work Phone: [facility] Start: 09-19-2024 End: 09-19-2024 ambulatory BRANDON [facility] Start: 07-05-2024 End: 07-05-2024 Bamboo flowsheet Juan Manuel Crow DPM Work Phone: [facility] Start: 07-05-2024 End: 07-05-2024 Bamboo flowsheet Juan Manuel Crow DPM Work Phone: [facility] Start: 07-05-2024 End: 07-05-2024 Office outpatient visit 15 minutes Juan Manuel Crow DPM Work Phone: [facility] Comment on above: Capsulitis of metata rsophalangeal (MTP) joint of right foot (Primary Dx); Diabetes mellitus due to underlying condition with diabetic polyneuropathy, unspecified whether manager terminal insulin use (CMS/HCC); Pain due to onychomycosis [...] Urology Comment on above: Results; Appointment Start: 02-09-2024 End: 02-09-2024 ambulatory [facility] Start: 12-27-2023 End: 12-27-2023 ambulatory MARQUIS WEAVER Facility:[facility] Start: 12-27-2023 End: 12-27-2023 Patient encounter [...] Start: 12-08-2023 End: 12-08-2023 ambulatory ALE NORIEGA Facility:[facility] Start: 12-08-2023 End: 12-08-2023 Patient encounter procedure Ale Noriega MD Work Phone: Urology Comment on above: Elevated prostate sp ecific antigen (PSA) (Primary Dx); APPOINTMENT CANCELLED Start: 12-08-2023 End: 12-08-2023 Telemedicine consultation with patient Ale Noriega MD Work Phone: [facility] Start: 12-08-2023 Telephone encounter Ale Noriega MD Work Phone: Urology Start: 11-21-2023 End: 11-22-2023 ambulatory Trevor Forte MD Facility: [facility] Start: 11-17-2023 End: 11-17-2023 ambulatory RAUL SUN Facility:[facility] Start: 10-24-2023 End: 10-24-2023 ambulatory RAUL SUN Facility:[facility] Start: 10-24-2023 End: 10-24-2023 Patient encounter procedure Ale Noriega MD Work Phone: Urology Comment on above: Elevated prostate sp ecific antigen (PSA) (Primary Dx); BPH without obstruction/lower urinary tract symptoms Start: 06-27-2023 End: 06-27-2023 ambulatory RAUL SUN Facility:[facility] Start: 06-06-2023 End: 06-06-2023 ambulatory RAUL SUN Facility:[facility] Start: 06-06-2023 End: 06-06-2023 Patient encounter [...] Start: 10-15-2022 End: 10-16-2022 ambulatory Jf WALTERS [facility] Start: 10-15-2022 End: 10-16-2022 ambulatory Jf WALTERS Facility:[facility] Start: 10-15-2022 End: 10-15-2022 Lab Drop off Jf WALTERS [facility] Start: 10-15-2022 End: 10-15-2022 Patient encounter procedure Jf WALTERS [facility] Start: 07-14-2022 End: 07-14-2022 ambulatory DRAW FRAME RUNNER-C Daina Judge Work Phone: [facility] Work Phone: Start: 07-14-2022 End: 07-14-2022 Patient encounter procedure AMMY Judge Work Phone: [facility] [place] Start: 06-28-2022 End: 06-29-2022 ambulatory Jf WALTERS Facility:[facility] Start: 06-28-2022 End: 06-28-2022 Patient encounter procedure Jf WALTERS [facility] Start: 06-16-2022 End: 06-16-2022 Patient encounter procedure [...] 03-01-2022 End: 03-01-2022 Patient encounter procedure Marquis Tovar Mariluhomavignesh OD Work Phone: Ophthalmology Comment on above: [...] Date Procedure Procedure Detail Performing Clinician Start: 03-11-2025 Excision of cyst Daina Judge DRAW FRAME [employer]NER-C Work Phone: Start: 03-11-2025 GLUCOSE POCT GLUCOMETERS Dannie Greer MD Work Phone: Start: 01-09-2025 Trunk excision Dainaruth arreola DRAW FRAME [employer]NER-C Work Phone: Start: 01-09-2025 GLUCOSE POCT GLUCOMETERS Dannie Greer MD Work Phone: Start: 12-27-2023 Computerized ophthal marquis imaging retina Marquis Weaver OD Work Phone: Start: 10-26-[address] ZOLTAN WALTERS . Comment on above: Performed By: #### P SAD #### [facility] [address] [place] [address] Dr. Zaira Benoit Start: 06-16-2022 Post-cataract laser surgery Radha Perez MD Work Phone: Start: 05-12-[address] ZOLTAN WALTERS . Comment on above: Performed By: #### P SASC #### [facility] [address] [place] [address] Dr. Zaira Benoit Start: 02-17-2022 Computerized ophthal [...] Start: 10-30-2025 End: 10-30-2025 Patient encounter procedure [facility] Start: 05-09-2025 End: 05-09-2025 Patient encounter procedure 05/09/2025 2:00 PM EDT Procedure Visit [facility] [address] [facility] [address] [place] [phone] Juan Manuel Crow DPM [address] [facility] [address] [place] [address] [facility] Start: 04-30-2025 End: 04-30-2025 Patient encounter procedure 04/30/2025 3:30 PM EDT Office Visit [facility] [address] [place] [address] [address] [place] [phone] Dannie Greer MD [address] [place] [address] [address] [place] [address] [facility] Start: 04-22-2025 Influenza vaccination [facility] Start: 04-09-2025 End: 04-09-2025 Patient encounter procedure 04/09/2025 3:45 PM EDT Office Visit [facility] [address] [place] [phone] Dannie Greer MD [address] [facility] [address] [place] [address] [facility] Start: 03-26-2025 End: 03-26-2025 Patient encounter procedure 03/26/2025 3:30 PM EDT [facility] [address] [facility] [address] [place] [phone] Dannie Greer MD [address] [facility] Start: 03-11-2025 [facility] Start: 02-19-2025 End: 02-19-2025 Patient encounter procedure 02/19/2025 3:30 PM EDT Office [facility] [address] [place] [phone] Dannie Greer MD [address] [facility] Start: 01-29-2025 End: 01-29-2025 Patient encounter procedure 01/29/2025 2:00 PM EDT Office Visit [facility] [address] [place] [phone] Dannie Greer MD [address] [address] [facility] Start: 01-17-2025 End: 01-17-2025 Patient encounter procedure [facility] Comment on above: Diabetes mellitus due to underlying cond ition with diabetic polyneuropathy, unspecified whether care home insulin use ([facility]) (Primary Dx); Pain due to onychomycosis of toenails of both feet; Venous insufficiency; Capsulitis of metatarsophalangeal (MTP) joint of right foot Start: 01-15-2025 End: 01-15-2025 Patient encounter procedure 01/15/2025 3:00 PM EDT [facility] [address] [place] [phone] Dannie Greer MD [address] [address] [facility] Start: 01-09-2025 [facility] Start: 12-28-2024 End: 12-28-2024 Patient encounter procedure 12/28/2024 1:30 PM EDT Office Visit [facility] [address] [place] [address] Marquis Weaver S, OD [address] [place] [address] Annual Full Eye Exam with [facility] Ophthalmology Comment on above: Annual Full Eye Exam with Mac OCT Start: 12-26-2024 Glaucoma screening Dilated Retinal Exam [facility] Start: 12-20-2024 End: 12-20-2024 Patient encounter procedure 12/20/2024 2:10 PM EDT Procedure Visit [facility] [address] [facility] [address] [place] [phone] Juan Manuel Crow DPM [address] [address] [facility] Start: 12-11-2024 End: 12-11-2025 Bacteria identification, aerobic Bacteria identification, aerobic Microbiology Routine Epidermal inclusion cyst Expected: 12/11/2024 (Approximate), Expires: 12/11/2025 [facility] Work Phone: Comment on above: Expected: 12/11/2024 (Approximate), Expi res: 12/11/2025 Start: 2024 RSV Vaccine (1 - 1-dose 75+ series) RSV Vaccine (1 - 1-dose 75+ series) [facility] Start: 10-11-2024 End: 10-11-2024 Patient encounter procedure 10/11/2024 1:50 PM EST Procedure Visit [facility] [address] [facility] [address] [place] [phone] Juan Manuel Crow DPM [address] [address] [facility] Start: 10-02-2024 End: 10-02-2024 Patient encounter procedure 10/02/2024 2:45 PM EST Office Visit [facility] [address] [place] [address] [place] [phone] Kaia Olguin MD [address] [place] [address] [place] [address] Arrived [facility] Comment on above: Arrived Start: 09-13-2024 End: 09-13-2024 Patient encounter procedure 09/13/2024 2:20 PM EST Procedure Visit [facility] [address] [place] [address] [place] [address] Juan Manuel Crow DPM [address] [facility] [place] [address] [place] [address] [facility] Start: 09-06-2024 End: 09-06-2024 Patient encounter procedure 09/06/2024 1:35 PM EST Office Visit [facility] [address] [place] [address] [place] [address] Kaia Olguin MD [address] [place] [address] [place] [address] [facility] Start: 06-27-2024 Glaucoma screening Dilated Retinal Exam [facility] Start: 06-06-2024 Hepatitis C antibody, confirmatory test Dilated Retinal Exam [facility] Start: 05-31-2024 End: 06-30-2025 MR Prostate WO and W contrast IV MRI PROSTATE WO/W IVCON Radiology Routine Encounter for observation for other suspected diseases and conditions ruled out Expected: 05/31/2024 (Approximate), Expires: 06/30/2025 [facility] Work Phone: Comment on above: Expected: 05/31/2024 (Approximate), Expi res: 06/30/2025 Start: 05-31-2024 End: 06-30-2025 MR Unspecified body region 3D post processing MRI 3D POST PROCESSING Radiology Routine Elevated prostate specific antigen (PSA) Prostate cancer (HCC) Expected: 05/31/2024 (Approximate), Expires: 06/30/2025 [facility] Comment on above: Expected: 05/31/2024 (Approximate), Expi res: 06/30/2025 Start: 05-31-2024 End: 08-30-2024 Prostate Specific Ag Free [Mass/volume] in Serum or Plasma PROSTATE SPECIFIC ANTIGEN, FREE Lab Routine Elevated prostate specific antigen (PSA) Prostate cancer (HCC) Encounter for observation for other suspected diseases and conditions ruled out Expected: 05/31/2024 (Approximate), Expires: 08/30/2024 [facility] Comment on above: Expected: 05/31/2024 (Approximate), Expi res: 08/30/2024 Start: 04-22-2024 Covid-19 Vaccine () Covid-19 Vaccine () [facility] Start: 04-22-2024 Influenza vaccination [facility] Start: 12-27-2023 End: 12-27-2023 Patient encounter procedure 12/27/2023 1:00 PM EDT Office Visit [facility] [address] [place] [address] LoudensMarquis rodriguez S, OD [address] [place], [place] [id number] RTC 6 months Dilate and oct [facility] Comment on above: RTC 6 months Dilate and oct [facility] Start: 11-24-2023 End: 02-23-2024 Prostate specific Ag [Mass/volume] in Serum or Plasma PSA/PROSTSPECAG DIAG Lab Routine Elevated prostate specific antigen (PSA) BPH without obstruction/lower urinary tract symptoms Expected: 11/24/2023 (Approximate), Expires: 02/23/2024 [facility] Work Phone: Comment on above: Expected: 11/24/2023 (Approximate), Expi res: 02/23/2024 Start: 08-22-2023 Advance Directive Discussion Advance Directive Discussion [facility] Start: 08-22-2023 Behavioral Health Screening Behavioral Health Screening [facility] Start: 08-22-2023 Depression Assessment Depression Assessment [facility] Start: 06-16-2023 Hepatitis C antibody, confirmatory test DILATED RETINAL EXAM [facility] Start: 04-22-2023 Covid-19 Vaccine ( season) Covid-19 Vaccine () [facility] Start: 04-22-2023 Influenza vaccination [facility] Start: 03-01-2023 Hepatitis C antibody, confirmatory test DILATED RETINAL EXAM [facility] Start: 02-17-2023 Hepatitis C antibody, confirmatory test DILATED RETINAL EXAM [facility] Start: 12-11-2022 COVID-19 VACCINE (5 - Pfizer series) COVID-19 VACCINE (5 - Pfizer series) [facility] Start: 08-22-2022 ADVANCE DIRECTIVE DISCUSSION ADVANCE DIRECTIVE DISCUSSION [facility] Start: 08-22-2022 DEPRESSION ASSESSMENT DEPRESSION ASSESSMENT [facility] Start: 05-07-2022 COVID-19 VACCINE (4 - Booster for Pfizer series) COVID-19 VACCINE (4 - Booster for Pfizer series) [facility] Start: 04-22-2022 Influenza vaccination [facility] Start: 08-22-2021 ADVANCE DIRECTIVE DISCUSSION ADVANCE DIRECTIVE DISCUSSION [facility] Start: 08-22-2021 DEPRESSION ASSESSMENT DEPRESSION ASSESSMENT [facility] Start: 04-16-2021 COVID-19 VACCINE (3 - Booster for Pfizer series) COVID-19 VACCINE (3 - Booster for Pfizer series) [facility] Start: 07-25-2020 COLORECTAL CANCER SCREENING COLORECTAL CANCER SCREENING [facility] Start: 07-25-2020 FECAL OCCULT BLOOD FECAL OCCULT BLOOD [facility] Start: 07-25-2020 Hepatitis B screening URINE ALBUMIN:CREATININE RATIO [facility] Start: 07-25-2020 Hepatitis B surface antibody level LDL CHOLESTEROL [facility] Start: 07-25-2020 Screening for malignant neoplasm of colon [facility] Start: 01-24-2020 Hemoglobin A1c measurement HbA1C [facility] Start: 01-24-2020 Hemoglobin A1c/Hemoglobin.total in Blood HBA1C [facility] Start: 2014 Pneumococcal Vaccine: 65+ Years (1 of 1 - PCV) Pneumococcal Vaccine: 65+ Years (1 of 1 - PCV) [facility] Start: 2009 Hepatitis B Vaccine (1 of 3 - Risk 3-dose series) Hepatitis B Vaccine (1 of 3 - Risk 3-dose series) [facility] Start: 2009 RSV Vaccine (1 - 1-dose 60+ series) RSV Vaccine (1 - 1-dose 60+ series) [facility] Start: 11-27-1999 Pneumococcal Vaccine: 65+ Years (1 of 1 - PCV) Pneumococcal Vaccine: 65+ Years (1 of 1 - PCV) [facility] Start: 11-27-1999 SHINGRIX VACCINE (1 of 2) SHINGRIX VACCINE (1 of 2) [facility] Start: 1994 COLOGUARD (FIT-DNA) COLOGUARD (FIT-DNA) [facility] Start: 1994 Colonoscopy COLONOSCOPY [facility] Start: [address] COLONOGRAPHY [facility] Start: 1994 Screening for malignant neoplasm of colon [facility] Start: 1994 SIGMOIDOSCOPY SIGMOIDOSCOPY [facility] Start: 1968 Urine microalbumin profile [facility] Start: 11-27-1967 ANNUAL PCP TEAM CHRONIC DISEASE VISIT ANNUAL PCP TEAM CHRONIC DISEASE VISIT [facility] Start: 11-27-1967 Anxiety Screening Anxiety Screening [facility] Start: 11-27-1967 Depression Screening Depression Screening [facility] Start: 11-27-1967 HEPATITIS C SCREENING HEPATITIS C SCREENING [facility] Start: 11-27-1967 Hepatitis C screening Hepatitis C Screening [facility] Start: 1961 Adult depression screening assessment DEPRESSION SCREENING [facility] Start: 11-27-1959 3 comp foot exam completed DIABETIC FOOT EXAM [facility] Start: 11-27-1959 Diabetic foot examination Diabetic Foot Exam [facility] Start: 11-27-1955 Pneumococcal Vaccine: 65+ (1 - PCV) Pneumococcal Vaccine: 65+ (1 - PCV) [facility] Start: 11-27-1955 Pneumococcal Vaccine: 65+ (1 of 2 - PCV) Pneumococcal Vaccine: 65+ (1 of 2 - PCV) [facility] Start: 11-27-1955 PNEUMOCOCCAL: 65+ (1 - PCV) PNEUMOCOCCAL: 65+ (1 - PCV) [facility] Start: 1949 ABDOMINAL AORTIC ANEURYSM SCREENING ABDOMINAL AORTIC ANEURYSM SCREENING [facility] Start: 1949 Abdominal aortic aneurysm screening Abdominal Aortic Aneurysm Screening [facility] Start: 1949 [facility] Aerobic culture Aerobic culture Microbiology Timed Epidermal inclusion cyst Release Upon Ordering for 1 Occurrences starting 12/11/[address] [facility] Comment on above: Release Upon Ordering for 1 Occurrences starting 12/11/2024 Patient Education [facility] Work Phone: Patient referral [facility] Work Phone: Renal function 2000 panel - Serum or Plasma [facility] Immunizations Immunization Date Immunization Notes Care Provider Rosalind alvares 03-12-2022 SARS-CoV-2 mRNA (carxutprvzd-qrtv-ywmbs se) vaccine Jf WALTERS [facility] Comment on above: Result Comment: 2021: [id number] 11-14-2020 COVID-19 vaccine, ag e 12+ yr (PFIZER-BIONTECH - PURPLE TOP) Radha Perez MD Work Phone: [facility] Comment on above: Result Comment: 2021: TPV70 10-24-2020 COVID-19 vaccine, ag e 12+ yr (PFIZER-BIONTECH - PURPLE TOP) Radha Perez MD Work Phone: [facility] Comment on above: Result Comment: 2021: [id number] Payers Date Payer Category Payer Self-pay 2024 Medicare [id number] 2021 Medicare (Managed Care) 1.2. [id number] 2017 Unknown ANTHEM BLUE CROS S AND BLUE SHIELD ANTHEM MEDIBLUE O [id number] 2017-Present [phone] [address] [place] [address] [facility] [id number] 2017 Unknown [id number] 1959 Medicare [id number] 1949 Unknown [id number] 2.16.840.1.296971.3.579.2 .593 1949 Unknown [id number] 2.16.840.1.360422.3.579.2 .593 1949 Unknown [id number] 2.16.840.1.541394.3.579.2 .593 1949 Unknown [id number] 2.16.840.1.660739.3.579.2 .727 1949 Unknown [id number] 2.16.840.1.874927.3.579.2 .727 1949 Unknown [id number] 2.16.840.1.328186.3.579.2 .727 1949 Unknown [id number] 2.16.840.1.185803.3.579.2 .196 1949 Unknown [id number] 2.16.840.1.332245.3.579.2 .196 1949 Unknown [id number] 2.16.840.1.739346.3.579.2 .1259 1949 Unknown [id number] 2.16.840.1.899610.3.579.2 .125 1949 Unknown [id number] 2.16.840.1.595540.3.579.2 .1259 1949 Unknown [id number] 2.16.840.1.558565.3.579.2 .1259 1949 Unknown [id number] 2.16.840.1.753498.3.579.2 .1259 1949 Unknown [id number] 2.16.840.1.455475.3.579.2 .1259 1949 Unknown [id number] 2.16.840.1.108580.3.579.2 .1259 1949 Unknown [id number] 2.16.840.1.403943.3.579.2 .1259 1949 Unknown [id number] 2.16.840.1.650155.3.579.2 .1259 1949 Unknown [id number] 2.16.840.1.325252.3.579.2 .1259 1949 Unknown [id number] 2.16840.1.728274.3.579.2 .1259 1949 Unknown [id number] 2.840.1.247217.3.579.2 .1259 Medicare Medicare [id number] Unknown [id number] 2.840.1.288956.3.579.2 .531 Unknown [id number] 2.16840.1.480391.3.579.2 .531 Social History Date Type Detail Facility Start: 08-22-1972 End: 01-08-2025 Tobacco smoking status NHIS Smokes tobacco daily [facility] Start: 08-22-1972 History of tobacco use Cigarette Smo ker [facility] Start: 11-03-2016 End: 02-19-2025 Cigarettes smoked current (pack per day) - Reported 1 [facility] Start: 11-03-2016 End: 01-08-2025 Tobacco use and exposure Smokeless tobacco non-user [facility] Start: 02-17-2022 End: 12-11-2024 Alcohol intake Current drinker of alcohol (finding) [facility] Start: 11-20-2018 History SDOH Alcohol Comment per day [facility] Start: 1950 Sex Assigned At Not on file C [facility] Start: 06-28-2022 End: 10-15-2022 Tobacco smoking status Heavy tobacco smoker (finding) [facility] Start: 06-16-2022 End: 02-19-2025 Sex Assigned At Male [facility] Start: 1950 Sex Assigned At Male F [facility] National Score (1-10 0), lower number is lower risk 87 [facility] Start: 01-08-2025 End: 04-09-2025 Alcoholic beverage intake Ex-drinker (finding) [facility] Sex Male (finding) [facility] Medical Equipment Procedure Code Equipment Code Equipment Origin al Text Equipment Identifier Dates Lens Acrysof Iq +19.5 Diopter Natural Stableforce 0 D Biconvex 118.7 - [id number] Start: 02-07-2017 Goals Date Patient Goal Desired Activity /State Functional Status Date Assessment Result Facility 10-15-2022 Functional Status N/A [facility] 06-28-2022 Functional Status N/A [facility] Clinical Notes 02-17-2022 to 04-09-2025 Dannie Gambino MD - 04/09/2025 3:45 PM Johnathon Gambino MD - 03/26/2025 3:30 PM Johnathon Gambino MD - 02/19/2025 3:30 PM Johnathon Gambino MD - 01/29/2025 2:00 PM EDTPatient Instructions Note Date & Type Note Facility 04-09-2025 History of Present illness Narrative Images from [...] about 2 weeks. documented in this encounter [facility] 03-26-2025 History of Present illness Narrative Images from the original note were not included. Patient is status post excision of an upper back mass. Pathology revealed epidermal inclusion cyst. Examination, the midportion of the wound has skin separation. There some underlying yellowish devitalized tissue. Sutures are removed. 1. EIC (epidermal inclusion cyst) We will initiate wet-to-dry dressing changes 2 to 3 times a week. We will arrange for home health. Patient will follow up in about 2 weeks. documented in this encounter [facility] 02-19-2025 History of Present illness Narrative Images from the original note were not included. Gianfranco Leblanc 1950 Gianfranco Leblanc is a 74 y.o. male presents with chief complaint of 5th pow Exc of back mass (Area looks good. He does have a new lump that started possibly a week ago. This lump is hard and has a head on it.) HPI: The patient returns today. His back wound is now completely epithelialized. Patient does have another mass / cyst superior to the wound. He is interested in having this excised. SUBJECTIVE: MEDICATIONS: ALLERGIES Current Outpatient Medications Medication [...] Diagnosis Date COPD (chronic obstructive pulmonary disease) (HCC) Depression DM (diabetes mellitus) (HCC) HLD (hyperlipidemia) HTN (hypertension) Squamous cell skin cancer Social History Tobacco Use Smoking status: Every Day Current packs/day: 1.50 Average packs/day: 1.5 packs/day for 52.5 years (78.7 ttl pk-yrs) Types: Cigarettes Start date: 1972 Smokeless tobacco: Never Vaping Use Vaping status: Never Used Substance Use Topics Alcohol use: Not Currently Alcohol/week: 21.0 standard drinks of alcohol Types: 21 Standard drinks or equivalent per week Drug use: Never Past Surgical History: Procedure Laterality Date CATARACT EXTRACTION HERNIA REPAIR Bilateral Bilateral Inguinal hernia repair -2 yhrs ago MASS EXCISION 01/09/2025 Excision of a back mass- AV[facility]argas SKIN CANCER EXCISION 3 Spots removed UMBILICAL HERNIA REPAIR 20 yrs ago REVIEW OF SYMPTOMS: Review of Systems Constitutional: Negative for fever. Respiratory: Negative for shortness of breath. Cardiovascular: Negative for chest pain. OBJECTIVE: Visit Vitals Ht 5' 9 Wt 212 lb BMI 31.31 kg/m Smoking Status Every Day BSA 2.16 m Physical Exam Constitutional: General: He is not in acute distress. Skin: Comments: In the right upper back, above his recently healed wound, there is a raised, rounded, approximately 1 cm mass. Currently, there is no erythema or induration. No open areas or drainage are noted. Neurological: Mental Status: He is alert. ASSESSMENT AND PLAN: Assessment/Plan Diagnoses and all orders for this visit: EIC (epidermal inclusion cyst) Wound of back, unspecified laterality, initial encounter The back wound is healed. The patient would like the mass/ cyst superior to this excised. Plan will be to excise the mass under local anesthesia. The procedure, benefits, risks including risks of bleeding, infection discussed. documented in this encounter [facility] 01-29-2025 History of Present illness Narrative Images from the original note were not included. Patient is being followed for his right upper back wound. He is having dressing changes by home health. Patient denies new medical issues. On examination, he is awake alert in no acute distress. Right upper back wound measures 2.5 cm in diameter. There is pink granulation tissue to the skin level. There is no surrounding erythema or induration. There is a small amount of serous drainage. 1. EIC (epidermal inclusion cyst) 2. Wound of back, unspecified laterality, initial encounter Patient will continue his current dressing changes. He will follow up in 2-3 weeks. Next appointment: 02/19/2025 documented in this encounter [facility] 01-17-2025 History of Present illness Narrative Patient: [...] taking anti-inflammatories periodically. Patient rates pain a /. Pt was toe get OTC gel inserts. [...] , Rfl: cholecalciferol (Vitamin D-3) 50 MCG (1999) capsule, Take by mouth, Disp: , Rfl: [...] Partner Violence: Unknown (10/13/2023) Received from [facility] Safety & Environment Fear of Current or [...] and negative PT pedal pulses NEURO: 5.07 Rembert Sally monofilament test diminished to digits and forefoot bilaterally 125Hz tuning fork diminished to 1st MPJ bilaterally ORTHO: Positive pain on palpation to toenails of the left 1,2,3,4,5 toes and right 1,2,3,4,5 toes minimal pain on palpation to right 4th MPJ plantar capsule with negative Jeremy test ASSESSMENT 1. Diabetes mellitus due to underlying condition with diabetic polyneuropathy, unspecified whether care home insulin use ([facility]) 2. Pain due to onychomycosis [...] tylenol or Ibuprofen Advised patient to use znji-qyl-jqpbhin gel inserts at this time to offload the sub 4th metatarsal region of the left foot that is painful Juan Manuel Crow DPM documented in this encounter [facility] 01-15-2025 History of Present illness Narrative Images [...] Next appointment: 01/29/2025 documented in this encounter [facility] 01-08-2025 History of Present illness Narrative Images from the original note were not included. Gianfranco Leblanc 1950 Gianfranco Leblanc is a 74 y.o. male presents with chief complaint of Consult (Cyst on back -upper right side- [facility] only ) HPI: Mr. Gianfranco Leblanc is [...] EVENING MEAL cholecalciferol (Vitamin D-3) 50 MCG (1999 [place]) capsule Take by mouth clobetasol (Temovate) 0.05 [...] Diagnosis Date COPD (chronic obstructive pulmonary disease) ([facility]) Depression ([facility]) DM (diabetes mellitus) ([facility]) HLD (hyperlipidemia) ([facility]) HTN (hypertension) ([facility]) Squamous cell skin cancer Social History Tobacco [...] dressing changes postoperatively. documented in this encounter [facility] 12-17-2024 Note [place] [facility] Subjective Gianfranco Leblanc is [...] cans of beer daily Drug use: Never HPI Gianfranco is seen in follow-up. This is [...] Disp: , Rfl (more content not included)... [facility] 12-11-2024 History of Present illness Narrative [...] culture Account Name: Trinity Olsen NPI: Ciaran Payton [id number] 2. PAIN Next Visit: pending culture results documented in this encounter [facility] 11-30-2024 History of Present illness Narrative Images [...] any new/changing lesions documented in this encounter [facility] 11-02-2024 Note SUBJECTIVE Reason for Visit: Gianfranco [...] than 60, glucos (more content not included)... [facility] 10-19-2024 Note This follow-up is in [...] The patient does not have an established charge rn. Given the severity of hyponatremia and the potential for further decline, which may lead to neurological complications, a referral to nephrology is warranted for further assessment and long-term electrolyte management. I will continue to coordinate care and adjust management based on the results of this workup. [facility] 10-19-2024 Note ne [facility] 10-11-2024 History of Present illness Narrative Patient: [...] Diagnosis Date COPD (chronic obstructive pulmonary disease) ([facility]) Depression ([facility]) DM (diabetes mellitus) ([facility]) HLD (hyperlipidemia) ([facility]) HTN (hypertension) ([facility]) Squamous cell skin cancer Medications: [...] Partner Violence: Unknown (10/13/2023) Received from [facility] [place] Safety & Environment Fear of [...] and negative PT pedal pulses NEURO: 5.07 Rembert Sally monofilament test diminished to digits and forefoot bilaterally 125Hz tuning fork diminished to 1st MPJ bilaterally ORTHO: Positive pain on palpation to toenails of the left 1,2,3,4,5 toes and right 1,2,3,4,5 toes Positive pain on palpation to right 4th MPJ plantar capsule with negative Jeremy test ASSESSMENT 1. Diabetes mellitus due to underlying condition with diabetic polyneuropathy, unspecified whether manager terminal insulin use ([facility]) 2. Pain due to onychomycosis [...] tylenol or Ibuprofen Advised patient to use mdhu-kkr-ahkpvin gel inserts at this time to offload the sub 4th metatarsal region of the left foot that is painful Juan Manuel Crow DPM documented in this encounter [facility] 10-02-2024 History of Present illness Narrative Skin [...] Visit: 1 year documented in this encounter [facility] 09-19-2024 Note Patient here for 6 m [...] All other systems reviewed and are negative. [facility] 09-19-2024 Note SUBJECTIVE Gianfranco Leblanc is [...] previous visit. Recent labs collected 08/10/2024 (per family law mediator): Sodium 131, potassium 4.9, creatinine 0.97, EGFR greater than 60, glucose 135, total protein 7.2, albumin 3.6. TTE 06/14/2023: LVE (more content not included)... [facility] 07-05-2024 History of Present illness Narrative [...] Diagnosis Date COPD (chronic obstructive pulmonary disease) ([facility]) Depression ([facility]) DM (diabetes mellitus) ([facility]) HLD (hyperlipidemia) ([facility]) HTN (hypertension) ([facility]) Squamous cell skin cancer Medications: [...] Partner Violence: Unknown (10/13/2023) Received from [facility] [place] Safety & Environment Fear of [...] and negative PT pedal pulses NEURO: 5.07 Rembert Sally monofilament test diminished to digits and forefoot bilaterally 125Hz tuning fork diminished to 1st MPJ bilaterally ORTHO: Positive pain on palpation to nails 1 through 10 Minimal pain on palpation to right 4th MPJ plantar capsule with negative Jeremy test ASSESSMENT 1. Diabetes mellitus due to underlying condition with diabetic polyneuropathy, unspecified whether care home insulin use ([facility]) 2. Pain due to onychomycosis [...] Manuel Crow DPM documented in this encounter [facility] 06-01-2024 Telephone encounter Note Julius Noriega- Spoke to patient Told Patient I was calling to get him scheduled for PSA and MRI with a follow up to see you. 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 Pt explained his Urology provider, Dr Barroso at [facility], scheduled him an MRI and [...] Paty Lacey June 01, 2024 11:08 AM [facility] 06-01-2024 Miscellaneous Notes Julius Noriega- Spoke to patient Told Patient I was calling to get him scheduled for PSA and MRI with a follow up to see you. 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 Pt explained his Urology provider, Dr Barroso at [facility], scheduled him an MRI and [...] up. Mychart sent. documented in this encounter [facility] 05-31-2024 Telephone encounter Note Images from the original note were not included. Jovita Glover Urol Schedulers Pool Please schedule patient for an MRI Prostate and then for an OV to follow per request! LVM for pt to call back and schedule MRI and follow up. Mychart sent. [facility] 05-31-2024 Instructions Jovita Glover - 05/31/2024 2:29 PM EDT PSA test and MRI Prostate Schedule office visit to follow documented in this encounter [facility] 05-31-2024 Note HNO ID: [id number] Author: ?, ?, ? Service: ? Author Type: ? Type: Progress Notes Filed: 05/31/2024 14:32 Note Text: INPATIENT TELEPHONE VISIT PROGRESS NOTE SERVICE DATE: 05/31/2024 SERVICE TIME: 2:00pm Gianfranco Leblanc has consented to this telephone encounter. Persons Present: patient Chief Complaint/Reason: discuss need for prostate biopsy HPI: Data Reviewed: Most recent labs PSA from [facility] on 05-18-24 = 16.17 (normal [...] All medical record entries made by the annibe were at my direction and in my presence. I have reviewed the chart and discharge instructions (if applicable) and agree that the record reflects my personal performance and is accurate and complete. Ale Noriega M.D. [facility] 05-31-2024 History of Present illness Narrative INPATIENT TELEPHONE VISIT PROGRESS NOTE SERVICE DATE: 05/31/2024 SERVICE TIME: 2:00pm Gianfranco Leblanc has consented to this telephone encounter. Persons Present: patient Chief Complaint/Reason: discuss need for prostate biopsy HPI: Data Reviewed: Most recent labs PSA from [facility] on 05-18-24 = 16.17 (normal [...] of Dr. Noriega. Ayde Patel Provider Attestation: I, Ale Noriega M.D., personally performed the services described in this documentation. All medical record entries made by the scribe were at my direction and in my presence. I have reviewed the chart and discharge instructions (if applicable) and agree that the record reflects my personal performance and is accurate and complete. Ale Noriega M.D. documented in this encounter [facility] 05-25-2024 Telephone encounter Note Call placed to patient in regards to message below. LVMM for patient to return call back to [phone], in regards to his recent lab results and orders on how Dr. Noriega would like to proceed. [facility] 05-25-2024 Miscellaneous Notes Call placed to patient in regards to message below. LVMM for patient to return call back to [phone], in regards to his recent lab results and orders on how Dr. Noriega would like to proceed. Please notify patient his PSA is very high and he is at high risk of having prostate cancer. he needs to schedule his prostate biopsy unless he had it done else where PSA from [facility] on 05-18-24 = 16.17 (normal values 0-4) Can be done in office under local or in ASC under [facility] Ale Noriega MD documented in this encounter [facility] 05-25-2024 Telephone encounter Note Please notify patient his PSA is very high and he is at high risk of having prostate cancer. he needs to schedule his prostate biopsy unless he had it done else where PSA from [facility] on 05-18-24 = 16.17 (normal values 0-4) Can be done in office under local or in ASC under [facility] Ale Noriega MD [facility] Work Phone: 05-25-2024 Note HNO ID: [id number] Author: ALE NORIEGA MD Service: ? Author Type: Physician Type: Progress Notes Filed: 05/25/2024 07:14 Note Text: PSA still rising PSA from [facility] on 05-18-24 = 16.17 (0-4) [facility] 05-25-2024 History of Present illness Narrative PSA still rising PSA from [facility] on 05-18-24 = 16.17 (0-4) documented in this encounter [facility] 02-09-2024 Note Greatly improved wit h increased dose of lasix. Trace edema noted today Renal function stable [facility] 02-09-2024 Note Hypertension is unch anged- stable well controlled Continue current treatment regimen. Dietary sodium restriction. Continue current medications. Blood pressure will be reassessed at the next regular appointment. [facility] 02-09-2024 Note Recommended smoking cessation after 5 min discussion and pt declined [facility] 02-09-2024 Note UTP CARDIOLOGY PROGR ESS [...] noted today Renal function stable RTC 6months [facility] 02-09-2024 Note Patient here for 3 [...] All other systems reviewed and are negative. [facility] 12-27-2023 Note Date of Procedure 12/27/2023. Interpretation Right Eye Normal without fluid. Findings include Negative for Intraretinal fluid, Cystoid macular edema. Left Eye Abnormal foveal contour. Findings include Negative for Intraretinal fluid, Cystoid macular edema. Interval Change Right Eye Stable. Left Eye Stable. [facility] 12-27-2023 Note HNO ID: [id number] Author: MARQUIS WEAVER, JOEL Service: ? 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 come to bead picker flyer on prostate bx To schedule office visit to discuss prostate bx if he wishes Ale Noriega MD [facility] Work Phone: 12-13-2023 Miscellaneous Notes Please call again and update me Please notify patient that his PSA is rising from 9 to 10.6 He needs prostate bx Can be done in office under local anesthesia or in ASC under MAC ( [place] [facility]) He can come to bead picker flyer on prostate bx To schedule office visit to discuss prostate bx if he wishes Ale Noriega MD documented in this encounter [facility] 12-08-2023 Miscellaneous Notes Phone visit unsuccessful and had only VOICE MAIL X 2 I DID NOT LEAVE A MESSAGE Please notify patient that his PSA is rising from 9 to 10.6 He needs prostate bx Can be done in office under local anesthesia or in ASC under MAC ( [place] [facility]) 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 Service: ? Author Type: ? Type: Progress Notes Filed: 12/08/2023 14:51 Note Text: 72 year old male with nuclear sclerotic senile, ERM, pseudophakia here today for elevated PSA. PSA PSA PSA, PERCENT FREE Latest Ref Rng <2.60 ng/mL % 07/25/2019 5.33 (H) 6 5.34 (H) 11/17/2023 10.58 (H) Attempted to call patient at 2:41. No answer. [facility] 12-08-2023 History of Present illness Narrative 72 year old male with nuclear sclerotic senile, ERM, pseudophakia here today for elevated PSA. PSA PSA PSA, PERCENT FREE Latest Ref Rng <2.60 ng/mL % 07/25/2019 5.33 (H) 6 5.34 (H) 11/17/2023 10.58 (H) Attempted to call patient at 2:41. No answer. documented in this encounter [facility] 10-24-2023 Instructions Raven Babcock - 10/24/2023 3:05 PM EST -PSA in 4 weeks at [facility] lab -Schedule telephone visit in 5 weeks to discuss PSA blood test documented in this encounter [facility] 10-24-2023 History of Present illness Narrative Gianfranco Leblanc [address] [place] [address] 72 year old male with nuclear sclerotic [...] 2007 Retinal detachment, left eye, repaired in [place], [place] PAST SURGICAL HISTORY OF hernia sx, [...] nontender, w/o nodules. Good anal sphincter tone. [facility] SYMPTOMS SCORE. Date 10/24/2023 1. [...] and in the presence of Dr. Noriega. Ann Oliveiraibe Provider Attestation: IAle M.D., personally performed the services described in this documentation. All medical record entries made by the scribe were at my direction and in my presence. I have reviewed the chart and discharge instructions (if applicable) and agree that the record reflects my personal performance and is accurate and complete. Ale Noriega M.D. documented in this encounter [facility] 10-24-2023 Note HNO ID: [id number] Author: ?, ?, ? Service: ? Author Type: ? Type: Progress Notes Filed: 10/24/2023 15:09 Note Text: Gianfranco Leblanc [address] [place] [address] 72 year old male with nuclear sclerotic [...] 2007 Retinal detachment, left eye, repaired in [place], [place] PAST SURGICAL HISTORY OF hernia sx, [...] nontender, w/o nodules. Good anal sphincter tone. [facility] SYMPTOMS SCORE. Date 10/24/2023 1. [...] the services describe (more content not included)... [facility] 06-27-2023 Note HNO ID: [id number] Author: Kenyon Angel OD Service: ? Author Type: DRILLING INSPECTOR Type: Progress Notes Filed: 06/27/2023 1:37 PM [...] Angel, OD June 27, 2023 1:37 PM [facility] 06-06-2023 Note HNO ID: [id number] Author: Marquis Weaver OD Service: ? Author Type: DRILLING INSPECTOR Type: Progress Notes Filed: 06/06/2023 2:29 PM [...] Weaver, OD June 06, 2023 2:22 PM [facility] 06-06-2023 History of Present illness [...] 2023 2:22 PM documented in this encounter [facility] 10-15-2022 Hospital Discharge instructions Patient [...] one of these risk factors: ?Being of -[place] descent. ?Having a family history of prostate [...] you: Are older than age 55. Are -[place]. Have a father, brother, or uncle who [...] 05/19/2018 Document Revised: 07/21/2018 Document Reviewed: 05/19/2018 [employer] Patient Education 2020 [employer] Interpreting. Follow Up Care 10/05/2022 09:16:20 With:SELENA LEONG, Jf Reis, URL Address: [address] [place] [id number]- When: Unknown [facility] 06-28-2022 Note Chief Complaint Referral-Elevated PSA HPI [...] [facility] [address], [place] [address]- [phone] Additional Instructions: pt will f/u based on [...] Father. Immunizations Vaccine Date Status Comments SARSCoV2 mRNA(lwqwosajc-vatc-zupfto) vac 03/12/2022 Recorded 2022-06-28: TPV70 SARS-CoV-2 (COVID-19) mRNA BNT-162b2 vax 11/14/2020 Recorded 2022-06-28: TPV70 SARS-CoV-2 (COVID-19) mRNA BNT-162b2 vax 10/24/2020 Recorded 2022-06-28: TPV70 Lab Results Test Name Test Result Date/Time PSA, External 6.8 ng/mL 05/20/2022 08:26 EDT PSA, External 8.41 ng/mL 05/12/2022 08:25 EDT Diagnostic Results Test (more content not included)... [facility] Comment on above: Result Comment: [...] urethra. Follow these instructions at home: Take wchz-ona-czswhng and prescription medicines only as told by [...] 08/08/2006 Document Revised: 07/03/2019 Document Reviewed: 09/12/2017 [employer] Patient Education [employer] Follow Up Care 05/27/2022 15:25:17 With:SELENA LEONG, Jf Reis, URL Address: [facility] [address] [place] [address]- [phone] When: Unknown [facility] 06-16-2022 History of Present illness Narrative ASSESSMENT/PLAN: [...] Z96.1 -S/P PCIOL Left eye (02/07/17) Aim: [place] by Dr. 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 Nuclear senile cataract of right eye - ICD9: 366.16, ICD10: H25.11 He is still happy enough with his vision and opts to follow up with Dr. Perez January 2023 for exam/cataract evaluation 4. History of retinal detachment - left eye - ICD9: V12.49, ICD10: Z86.69 history of retinal detachment repair OS 2007 in [place]. [place]. Call/come in for evaluation immediately if [...] others. I have seen and examined Gianfranco Veronica. I have discussed the case and the management of this patient's care with the Resident/Fellow, if applicable. I also have reviewed and agree with the assessment and plan as stated above and agree with all of its relevant components. Radha Perez MD documented in this encounter [facility] 03-01-2022 History of Present illness [...] 2022 4:08 PM documented in this encounter [facility] 02-26-2022 Miscellaneous Notes Called to let patient know we were able to get him an appointment in [place] at 4pm, left message. SENTHIL Ballesteros February 26, 2022 3:[address] Perez and she recommends that he be seen today. Please reach out to Patient to see if we can get appointment. SENTHIL Ballesteros February 26, 2022 2:57 PM documented in this encounter [facility] 02-17-2022 History of Present illness [...] h/o retinal detachment repair OS 2007 in [place]. Stable. Call/come in for evaluation immediately if [...] eye -S/P PCIOL Left eye (02/07/17) Aim: [place] by Dr. Perez Signs and symptoms of posterior capsular opacification were reviewed. Discussed possible eventual need for Yag laser posterior capsulotomy. Patient is still happy enough with vision, so declines Yag procedure for now. stable; he remains happy with his vision OS and with OTC readers If he wishes to get new glasses, previously offered an undilated refraction with our optometrists in [place]; he was told that vision with new glasses would not be perfect due to cataract OD; he also has mild PCO OS and Epiretinal membrane OS. He sees a nurse practitioner in [place] Offered for him to establish with a [facility] crystal calibrator in [place] Return to clinic in 12 months for [...] Perez MD 02/17/22 documented in this encounter [facility] Evaluation + Plan note No data available for this section [facility] Evaluation note Diagnosis Nuclear senile cataract of [...] by other means [facility] Diagnosis 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, left- [...] both upper eyelids [facility] Diagnosis 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, left- [...] stated as uncontrolled [facility]un[facility] noteNo assessment information availableC[facility]tr Work Phone: Evaluation note* Diagnosis OPENED IN ERROR- Primary To allow closing an encounter opened in error (used in SmartSet) [facility] Diagnosis Type 2 diabetes mellitus [...] and sense organs [facility] Diagnosis Elevated prostate specific antigen (PSA)- Primary BPH without obstruction/lower urinary tract symptoms Hypertrophy of prostate without urinary obstruction and other lower urinary tract symptoms (LUTS) [facility] Diagnosis Elevated prostate specific antigen (PSA)- Primary APPOINTMENT CANCELLED Retinal hemorrhage, left eye- Primary Retinal hemorrhage History of retinal detachment Personal history of other disorders of nervous system and sense organs Epiretinal membrane (ERM) of left eye [facility] Diagnosis Retinal hemorrhage, left eye- Primary Retinal hemorrhage History of retinal detachment Personal history of other disorders of nervous system and sense organs Epiretinal membrane (ERM) of left eye Nuclear senile cataract of right eye Pseudophakia, left eye Lens replaced by other means History of YAG laser capsulotomy of lens, left [facility] Diagnosis Elevated prostate specific antigen (PSA)- Primary Prostate cancer (HCC) Malignant neoplasm of prostate Encounter for observation for other suspected diseases and conditions ruled out [facility] Diagnosis Capsulitis of metatarsophalangeal (MTP) joint of right foot- Primary Diabetes mellitus due to underlying condition with diabetic polyneuropathy, unspecified whether care home insulin use (CMS/HCC) Pain due to onychomycosis of toenails of both feet Venous insufficiency Unspecified venous (peripheral) insufficiency documented in this encounter [facility]* Diagnosis Seborrheic keratosis- Primary Lentigines Other rosacea History of SCC (squamous cell carcinoma) of skin Personal history of other malignant neoplasm of skin Capillary angioma Nevus, non-neoplastic Epidermal inclusion cyst Sebaceous cyst documented in this encounter [facility]* Diagnosis Capsulitis of metatarsophalangeal (MTP) joint of right foot- Primary Diabetes mellitus due to underlying condition with diabetic polyneuropathy, unspecified whether care home insulin use (CMS/HCC) Pain due to onychomycosis of toenails of both feet Venous insufficiency Unspecified venous (peripheral) insufficiency documented in this encounter [facility]* Diagnosis EIC (epidermal inclusion cyst)- Primary Sebaceous cyst documented in this encounter [facility]* Diagnosis Epidermal inclusion cyst- Primary Sebaceous cyst Pain Generalized pain documented in this encounter [facility]* Diagnosis Wound of back, unspecified laterality, initial encounter- Primary EIC (epidermal inclusion cyst) Sebaceous cyst documented in this encounter [facility]* Diagnosis Wound of back, unspecified laterality, initial encounter- Primary Diabetes mellitus due to underlying condition with diabetic polyneuropathy, unspecified whether care home insulin use (CMS/HCC)- Primary Pain due to onychomycosis of toenails of both feet Venous insufficiency Unspecified venous (peripheral) insufficiency Capsulitis of metatarsophalangeal (MTP) joint of right foot documented in this encounter [facility]* Diagnosis Diabetes mellitus due to underlying condition with diabetic polyneuropathy, unspecified whether care home insulin use ([facility])- Primary Pain due to onychomycosis of toenails of both feet Venous insufficiency Unspecified venous (peripheral) insufficiency Capsulitis of metatarsophalangeal (MTP) joint of right foot documented in this encounter [facility]* Diagnosis EIC (epidermal inclusion cyst)- Primary Sebaceous cyst Wound of back, unspecified laterality, initial encounter documented in this encounter [facility]* Diagnosis EIC (epidermal inclusion cyst)- Primary Sebaceous cyst Wound of back, unspecified laterality, initial encounter documented in this encounter [facility]* Diagnosis Onset Date Resolution Status Admit Date COPD (chronic obstructive pulmonary disease) acute March 14 3:32pm Diabetes acute March 14 3:32pm HLD (hyperlipidemia) acute March 14, 2025 3:32pm HTN (hypertension) acute February 202024 3:32pm Hyponatremia acute March 14, 3:32pm [facility] Work Phone: Evaluation note* Diagnosis EIC (epidermal inclusion cyst)- Primary Sebaceous cyst documented in this encounter [facility]* Diagnosis EIC (epidermal inclusion cyst)- Primary Sebaceous cyst Non-healing surgical wound, subsequent encounter [facility] No data available for this section [facility] No data available for this section [facility] reason for referral (narrative)No reason for referral information availableC[facility] Work Phone: Medications Administered Section Active Administered Medications - up to 3 most recent administrations Medication Order MAR Action Action Date Dose Rate Site fluorescein-benoxinate 0.25-0.4 % 1 Drop (FLURESS) 1 Drop, BOTH EYES, DIRECTED, Starting on Tue02/17/22 at 1330, Until Tue02/18/22 at 0129, Administer for applanation tonometry. 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 Advance Directive(s) 02/07/2017 9:56 AM Advance Directive Response Recorded Date/ Time Advance Directives No June 11:55am Advance Directive Response Recorded Date/ Time Advance Directives No June 12:55pm Chief Complaint and Reason for Visit Chief Complaint r97.20 n40.1 Chief Complaint Admit Date Back Mass January 09, 2025 2:57p m Back Mass March 11, 2025 3:00 pm Chief Complaint Admit Date Back Mass January 09, 2025 2:57p m Back Mass March 11, 2025 3:00 pm hyponatremia March 14, 2025 3:32 pm Reason for Visit Admit Date COPD (chronic obstructive pulmonary dise ase) March 14, 2025 3:32pm Diabetes March 14, 2025 3:32 pm HLD (hyperlipidemia) March 14, 2025 3:3 2pm HTN (hypertension) March 14, 2025 3:32 pm Hyponatremia March 14, 2025 3:32 pm Summary Purpose Family History No Family History Records Found Relationship Condition Age at Onset Recorded Date/T debra brother Presence of cardiac pacemaker Unknown Reason for Referral Specialty Diagnoses / Procedures Referred By Ever t Referred To Contact [facility] Diagnoses Elevated prostate specific antigen (PSA) Prostate cancer (HCC) Procedures MRI 3D POST PROCESSING 3D RENDERING W/INTERP&POSTPROC DIFF WORK STATION Ale Noriega MD [address] [place] [address] [place] [address] Referral ID Status Reason Start Date Expiration Date Visits Requested Visits Authorized [id number] New Request Auto-Generat ed Referral 4 06/30/2025 1 1 Specialty Diagnoses / Procedures Referred By Ever t Referred To Contact MR IMAGING Diagnoses Encounter for observation for other suspected diseases and conditions ruled out Procedures MRI PROSTATE WO/W IVCON MRI PELVIS W/O & W/CONTRAST MATERIAL Ale Noriega MD [address] [place] [address] [place] [address] Referral ID Status Reason Start Date Expiration Date Visits Requested Visits Authorized [id number] New Request Auto-Generat ed Referral 4 06/30/2025 1 1 Additional Source Comments Source Comments (unrecognize d section and content) In the event this informatio n is protected by the Federal Confidentiality of Alcohol and Drug Abuse Patient Records regulations: The Federal rules restrict any use of the information to criminally investigate or prosecute any alcohol or drug abuse patient.[facility] the event this information is protected by the Federal Confidentiality of Alcohol and Drug Abuse Patient Records regulations: The Federal rules restrict any use of the information to criminally investigate or prosecute any alcohol or drug abuse patient.[facility] the event this information is protected by the Federal Confidentiality of Alcohol and Drug Abuse Patient Records regulations: The Federal rules restrict any use of the information to criminally investigate or prosecute any alcohol or drug abuse patient.[facility] the event this information is protected by the Federal Confidentiality of Alcohol and Drug Abuse Patient Records regulations: The Federal rules restrict any use of the information to criminally investigate or prosecute any alcohol or drug abuse patient.[facility] the event this information is protected by the Federal Confidentiality of Alcohol and Drug Abuse Patient Records regulations: The Federal rules restrict any use of the information to criminally investigate or prosecute any alcohol or drug abuse patient.[facility] the event this information is protected by the Federal Confidentiality of Alcohol and Drug Abuse Patient Records regulations: The Federal rules restrict any use of the information to criminally investigate or prosecute any alcohol or drug abuse patient.[facility] the event this information is protected by the Federal Confidentiality of Alcohol and Drug Abuse Patient Records regulations: The Federal rules restrict any use of the information to criminally investigate or prosecute any alcohol or drug abuse patient.[facility] the event this information is protected by the Federal Confidentiality of Alcohol and Drug Abuse Patient Records regulations: The Federal rules restrict any use of the information to criminally investigate or prosecute any alcohol or drug abuse patient.[facility] the event this information is protected by the Federal Confidentiality of Alcohol and Drug Abuse Patient Records regulations: The Federal rules restrict any use of the information to criminally investigate or prosecute any alcohol or drug abuse patient.[facility]In the event this information is protected by the Federal Confidentiality of Alcohol and Drug Abuse Patient Records regulations: The Federal rules restrict any use of the information to criminally investigate or prosecute any alcohol or drug abuse patient.[facility] the event this information is protected by the Federal Confidentiality of Alcohol and Drug Abuse Patient Records regulations: The Federal rules restrict any use of the information to criminally investigate or prosecute any alcohol or drug abuse patient.[facility] the event this information is protected by the Federal Confidentiality of Alcohol and Drug Abuse Patient Records regulations: The Federal rules restrict any use of the information to criminally investigate or prosecute any alcohol or drug abuse patient.[facility] the event this information is protected by the Federal Confidentiality of Alcohol and Drug Abuse Patient Records regulations: The Federal rules restrict any use of the information to criminally investigate or prosecute any alcohol or drug abuse patient.[facility] the event this information is protected by the Federal Confidentiality of Alcohol and Drug Abuse Patient Records regulations: The Federal rules restrict any use of the information to criminally investigate or prosecute any alcohol or drug abuse patient.[facility]In the event this information is protected by the Federal Confidentiality of Alcohol and Drug Abuse Patient Records regulations: The Federal rules restrict any use of the information to criminally investigate or prosecute any alcohol or drug abuse patient.[facility] Reason for Visit (unrecogniz ed [...] Consult Cyst on back -upper right side- [facility] only Specialty Diagnoses / Procedures Referred By Contac t Referred To Contact General Surgery Diagnoses EIC (epidermal inclusion cyst) Pain Procedures RI OFFICE/OUTPATIENT NEW HIGH MDM 60 MINUTES Ciaran Cain PA [address] [place] [address] Phone: tel: fax: Dannie Greer MD [address] [facility] [address] [place] [address] Phone: tel: fax: Referral ID Status Reason Start Date Expiration Date V isits Requested Visits Authorized [id number] Closed Specialty Services Required 12/11/2024 06/09/2025 1 1 Reason Comments 1st po back mass Reason Comments Back mass Reason Comments 5th pow Exc of back mass Area looks good . He does have a new lump that started possibly a week ago. This lump is hard and has a head on it. Reason Comments 1st po Exc. of back mass Dressing was he avily soiled, black and green. States he was told not to change the dressing. Reason Comments 4th pow Exc. of back mass Care Teams (unrecognized sec tion and content) Team Status: Active Member Role Status Dates AMMY Darling Primary Care Provider Active Team Status: Inactive Member Role Status Dates AMMY Darling Primary Care Provider Active Start: January 09, 2025 End: January 09, 2025 Dannie Greer MD Attending Provider Active Sta rt: January 09, 2025 End: January 09, 2025 Team Status: Inactive Member Role Status Dates AMMY Darling Primary Care Provider Active Start: March 11, 2025 End: March 11, 2025 Dannie Greer MD Attending Provider Active Sta rt: March 11, 2025 End: March 11, 2025 Topper Press Operator Relationship Specialty Start Date End Date Raul Sun MD PCP - General Family Practice 02/11/21 Topper Press Operator Relationship Specialty Start Date End Date Raul Sun MD PCP - General Family Practice 02/11/21 Topper Press Operator Relationship Specialty Start Date End Date Raul Sun MD PCP - General Family Practice 02/11/21 Topper Press Operator Relationship Specialty Start Date End Date Raul Sun MD PCP - General Family Medicine 02/11/21 Team Status: Inactive Member Role Status Dates Jf Walters MD Attending Provider Active AMMY Darling Primary Care Provider Active Topper Press Operator Relationship Specialty Start Date End Date Raul Sun MD PCP - General Family Medicine 02/11/21 Topper Press Operator Relationship Specialty Start Date End Date Raul Sun MD PCP - General Family Medicine 02/11/21 Topper Press Operator Relationship Specialty Start Date End Date Raul Sun MD PCP - General Family Medicine 02/11/21 Daina Judge CNP [address] [place] [address] Referring Internal Medicine 10/15/23 Topper Press Operator Relationship Specialty Start Date End Date Raul Sun MD PCP - General Family Medicine 02/11/21 Daina Judge, HIRO [address] [place] [address] Referring Internal Medicine 10/15/23 Topper Press Operator Relationship Specialty Start Date End Date Raul Sun MD PCP - General Family Medicine 02/11/21 Daina Judge, HIRO [address] [place] [address] Referring Internal Medicine 10/15/23 Topper Press Operator Relationship Specialty Start Date End Date Raul Sun MD PCP - General Family Medicine 02/11/21 Daina Judge, RUG INSPECTOR HELPER [address] [place] [address] Referring Internal Medicine 10/15/23 Topper Press Operator Relationship Specialty Start Date End Date Raul Sun MD PCP - General Family Medicine 02/11/21 Daina Judge, RUG INSPECTOR HELPER [address] [place] [address] Referring Internal Medicine 10/15/23 Topper Press Operator Relationship Specialty Start Date End Date Raul Sun MD PCP - General Family Medicine 02/11/21 Daina Judge, RUG INSPECTOR HELPER [address] [place] [address] Referring Internal Medicine 10/15/23 Topper Press Operator Relationship Specialty Start Date End Date Raul Sun MD PCP - General Family Medicine 02/11/21 Daina Judge, RUG INSPECTOR HELPER [address] [place] [address] Referring Internal Medicine 10/15/23 Topper Press Operator Relationship Specialty Start Date End Date Reuben Judge MD [address] [place] [address] (Fax) PCP - General Family Medicine 10/11/24 Topper Press Operator Relationship Specialty Start Date End Date Reuben Judge MD [address] [place] [address] (Fax) PCP - General Family Medicine 10/11/24 Topper Press Operator Relationship Specialty Start Date End Date Reuben Judge MD [address] [place] [address] (Fax) PCP - General Family Medicine 10/11/24 Topper Press Operator Relationship Specialty Start Date End Date Reuben Judge MD [address] [place] [address] (Fax) PCP - General Family Medicine 10/11/24 Topper Press Operator Relationship Specialty Start Date End Date Reuben Judge MD [address] [place] [address] (Fax) PCP - General Family Medicine 10/11/24 Topper Press Operator Relationship Specialty Start Date End Date Reuben Judge MD [address], [place] [id number] PCP - General Family Medicine 10/11/24 Topper Press Operator Relationship Specialty Start Date End Date Reuben Judge MD [address], [place] [phone] PCP - General Family Medicine 10/11/24 Topper Press Operator Relationship Specialty Start Date End Date Reuben Judge MD [address], [place] [phone] PCP - General Family Medicine 10/11/24 Topper Press Operator Relationship Specialty Start Date End Date Reuben Judge MD [address], [place] [id number] PCP - General Family Medicine 10/11/24 Topper Press Operator Relationship Specialty Start Date End Date Reuben Judge MD [address], [place] [id number] PCP - General Family Medicine 10/11/24 Team Status: Inactive Member Role Status Dates Daina Judge , DRAW FRAME RUNNER-C Primary Care Provider Active Start: March 14, 2025 End: March 14, 2025 Viv Rick MD Attending Provider Active Start : March 14, 2025 End: March 14, 2025 Topper Press Operator Relationship Specialty Start Date End Date Daina Judge MD [address] [place] [address] Primary Care Provider Family Medicine 04/09/25 Goals (unrecognized section and content) Goals may be documented in a n alternate section (unrecognized sect ion and content) No Status Records FoundNo Status Records FoundNo Status Records FoundNo Status Records FoundNo Status Records FoundNo Status Records FoundNo Status Records Found INFORMATION SOURCE (unrecogn ized section and content) DATE CREATED AUTHOR 10/28/2022 [facility] DATE CREATED AUTHOR AUTHOR'S ORGANIZ ATION 12/01/2022 [facility] DATE CREATED AUTHOR AUTHOR'S ORGANIZ ATION 01/01/2024 [facility] DATE CREATED AUTHOR AUTHOR'S ORGANIZ ATION 06/06/2024 [facility] DATE CREATED AUTHOR AUTHOR'S ORGANIZ ATION 12/26/2024 [facility] DATE CREATED AUTHOR AUTHOR'S ORGANIZ ATION 03/24/2025 [facility] DATE CREATED AUTHOR AUTHOR'S ORGANIZ ATION 04/11/2025 [facility] EPIC FOR RECORDS PERTAINING TO [...] BE BASED ON THE PRIMARY CLINICAL RECORDS. [employer] provides no warranty or guarantee of the accuracy or completeness of information in this document.
[2025-04-11 18:03] LABS: Alanine Aminotransferase 22 U/L (16-63); Albumin Globulin Ratio 1.1; Albumin Level 3.9 g/dL (3.4-5.0); Alkaline Phosphatase 86 U/L (46-116); Anion Gap 10.1; Aspartate Amino Transferase 15 U/L (15-37); Blood Urea Nitrogen 6.0 mg/dL (7.0-18.0); Calcium 8.8 mg/dL (8.5-10.1); Carbon Dioxide 30.3 mmol/L (21.0-32.0); Chloride 97 mmol/L (98-107); Cholesterol 120 mg/dL (<=200); Estimated GFR (African America >60 (>=60 mL/min/1.73m^2); Estimated GFR (Non-African Ame >60 (>=60 mL/min/1.73m^2); Free T3 1.30 pg/mL (2.18-3.98); Globulin 3.7 g/dL; Glucose 123 mg/dL (74-106); HDL Cholesterol 54 mg/dL (40-60); Potassium 4.4 mmol/L (3.5-5.1); Sodium 133 mmol/L (136-145); Thyroid Stimulating Hormone 2.965 uIU/mL (0.358-3.740); Total Protein 7.6 g/dL (6.4-8.2); Triglycerides 80 mg/dL (<=150); VLDL CHOLESTEROL 16.0 mg/dL
== END 2025-04-11 15:34 | disposition home or self-care (01) ==
LOC: LAB 15:35
PROVIDERS: PCP Nurse Practitioner Family; Visit Provider Nurse Practitioner Family
DX: Z00.00 Encounter for general adult medical examination without abnormal findings (principal); I10 Essential (primary) hypertension; Z12.5 Encounter for screening for malignant neoplasm of prostate; E78.5 Hyperlipidemia, unspecified; R53.83 Other fatigue; Z12.12 Encounter for screening for malignant neoplasm of rectum; E03.9 Hypothyroidism, unspecified; R73.09 Other abnormal glucose
CPT/HCPCS: 36415; 80053; 80061; 83036; 84436; 84443; 84481; 85025; G0103